=== PATIENT | female | born 1950 | race Caucasian/White ===

== ENCOUNTER 2017-12-23 16:59 | Emergency (ER) | payer SELFPAY ==
[2017-12-23 16:59] VITALS: BP 188/96; PULSE 100; RESP 16; TEMP 37.8; O2SAT 94; BMI 32.5
--- NOTE | 2017-12-23 17:32 | EKG12_ITS ---
Test Reason : SOB,COUGH Blood Pressure : / mmHG Vent. Rate : 086 BPM Atrial Rate : 086 BPM P-R Int : 128 ms QRS Dur : 072 ms QT Int : 340 ms P-R-T Axes : 037 022 053 degrees QTc Int : 406 ms Normal sinus rhythm Nonspecific ST abnormality Abnormal ECG Confirmed by GUSTABO DEVI, BROCK ([id number]), photography editor MATY MEDELLIN ([id number]) on 12/26/2017 8:43:33 AM Referred By: DRAKE Confirmed By:BROCK MONTEJO MD
--- NOTE | 2017-12-23 17:32 | RAD_ITS ---
STUDY: X-RAY CHEST REASON FOR EXAM: Female, 66 years old. COUGH TECHNIQUE: Frontal and lateral views of the chest. COMPARISON: None. FINDINGS: Chronic appearing increased interstitial lung markings. There is no demonstrated pleural abnormality. Normal heart size. Normal mediastinum and jovita. Normal visualized pulmonary arteries. There is atherosclerotic calcification of the aortic arch with tortuosity. There are diffuse degenerative changes of the visualized thoracic spine. There is degenerative osteoarthritis of the bilateral shoulders. There is no demonstrated abnormality of the visualized soft tissue structures of the upper abdomen. RAD/Chest PA and Lateral IMPRESSION: There are no acute findings. Electronically Signed: Darrian Bolden MD at 19:19 EST , Service support ,
--- NOTE | 2017-12-23 17:35 | ED.DCSUM_ITS ---
- ER Visit Summary Date of Service: 12/23/17 Chief Complaint: [] Cough, shortness of breath History of Present Illness: The patient is a 66 F [] complaining of persistent cough, diffuse myalgias, shortness of breath during the peak of flu season. Patient reports she was seen at the urgent care and provided with medication that did not help her symptoms. She is returning with conversational dyspnea and new productive cough. Denies chest pain. No other complaints at this time. Physical Examination: [] Temperature 100.0. Heart rate 100. Remainder of vitals are unremarkable. 66-year-old female in no acute distress. She is coughing intermittently. Cardiovascular exam is regular rate and rhythm. Lungs are clear to auscultation. Abdomen is soft and nontender. There is no lower extremity edema. Test Results: [] White blood cell count elevated 16.6. BMP is normal. EKG shows normal sinus rhythm rate of 86 without ectopy or ischemic changes. Chest x-ray 2 views shows no acute process. Emergency Department Course and Treatment: [] Patient given intravenous fluids, Phenergan. Patient given oral Tylenol and oral Decadron. On serial exam after the essentially negative workup patient was provided azithromycin 500 mg for clinical bronchitis. She was provided a prescription of azithromycin 250 mg #4 to start taking tomorrow. Patient was counseled regarding her diagnostic and laboratory findings and is amenable to discharge and close follow-up with the PCP. Treatment Plan: [] Treated for bronchitis as an outpatient with outpatient antibiotics. Disposition: [] Discharge, stable. Impression: [] Bronchitis This note was generated with [employer] dictation software. It may contain incorrect words, spelling, and punctuation that were not noted in review of the chart prior to signing ED Disposition - Plan for ED Patient: Chief Complaint: Fever Referrals: Rowdy Heredia III, MD [Primary Care Provider] -
[2017-12-23] MEDS: Acetaminophen 500 MG Tablet 1000 MG PO (17:46)
[2017-12-23] MEDS: 0.9% Normal Saline 1,000 ML 1000 ML IV (18:04)
[2017-12-23 18:10] LABS: Absolute Lymphocyte Count 1.56 X10^3/ul (0.83-4.51); Absolute Neutrophil Count 13.4 X10^3/uL (2.0-7.7); Basophil# 0.03 X10^3/uL; Basophil% 0.2 % (0-1); Hemoglobin 11.7 g/dl (12.0-15.0); Lymphocyte # 1.56 X10^3/ul (4.0); Lymphocyte % 9.4 % (19-41); Mean Corp Hgb Conc 33.4 g/gl (32-36); Mean Corpuscular Hgb 28.7 pg (27.0-32.0); Mean Platelet Vol. 9.4 fl (6.2-12.0); Monocyte# 1.37 X10^3/uL; Monocyte% 8.3 % (0-10); Neutrophil # 13.44 X10^3/uL (2.7-7.7); Neutrophil % 81.1 % (47-70); Platelet Count 479 K/mm3 (150-450); RBC Distribution Width CV 12.4 % (11.6-14.6); RBC Distribution Width SD 39.4 fl (35.1-43.9); Red Blood Count 4.07 M/mm3 (4.2-5.4); White Blood Count 16.6 K/mm3 (4.4-11.0)
[2017-12-23 18:15] LABS: POSITIVE COUNT NO; POSITIVE DIFFERENTIAL NO; POSITIVE MORPHOLOGY NO
[2017-12-23 18:31] LABS: Anion Gap 9 (5-15); BUN 13 mg/dL (7-18); BUN/Creat Ratio 18.9 RATIO (10-20); Calcium,Total 8.9 mg/dL (8.5-10.1); Chloride 104 mmol/L (98-107); Creatinine, Serum 0.69 mg/dL (0.55-1.02); EST Glomerular Filtration Rate 91 mL/min (>60); Est Glom Filt Rate - Afr Amer 110 mL/min (>60); Estimated Creatinine Clearance 59.16 ml/min; Glucose 106 mg/dL (74-106); Potassium 3.9 mmol/L (3.5-5.1); Sodium Level 138 mmol/L (136-145)
[2017-12-23 19:00] VITALS: BP 204/89; PULSE 79; RESP 20; TEMP 36.6; O2SAT 97
--- NOTE | 2017-12-23 20:49 | ED.DEP ---
ED Disposition - Plan for ED Patient: Disposition: Home or Assisted Living Chief Complaint: Fever Instructions: Acute Bronchitis Prescriptions: Azithromycin 250 mg PO DAILY #4 tab Referrals: Rowdy Heredia III, MD [Primary Care Provider] -
[2017-12-23 20:58] VITALS: BP 158/90; PULSE 75; RESP 18; O2SAT 96
[2017-12-23] MEDS: Azithromycin 250 MG Tablet 500 MG PO (20:58)
== END 2017-12-23 21:04 | disposition home or self-care (01) ==
PROVIDERS: Emergency Provider Emergency Medicine; Family Provider Family Medicine; PCP Family Medicine
DX: J40 Bronchitis, not specified as acute or chronic (principal); R50.9 Fever, unspecified; Z90.89 Acquired absence of other organs
CPT/HCPCS: 71046; 80048; 85025; 87804; 93005; 96361; 96374; 99284

== ENCOUNTER 2023-02-21 08:47 | Inpatient (IN) | payer MEDICARE, SELFPAY ==
[2023-02-21] VITALS (16 sets, daily range): BP systolic 180–230; BP diastolic 84–149; PULSE 71–99; RESP 12–20; TEMP 36.6–36.8; O2SAT 94–100; BMI 34.0; BMI 39.5
--- NOTE | 2023-02-21 09:02 | CT_ITS ---
We are attempting to reach an attending provider to discuss findings. An addendum with communication details will be sent when the communication is complete. STUDY: CT HEAD STROKE PROTOCOL W/O CONTRAST INJECTION REASON FOR EXAM: Female, 72 years old. Neuro deficit, acute, stroke suspected RADIATION DOSAGE (If Supplied By Facility): CTDIvol = ( 44.99 ) mGy, DLP = ( 796.11 ) mGycm TECHNIQUE: Transaxial CT imaging of the brain was performed without administration of intravenous contrast material. Individualized dose optimization techniques were used for this CT. COMPARISON: No relevant priors. FINDINGS: Normal soft tissue structures. Normal calvarium. There is mild cerebral atrophy with widening of the extra-axial spaces and ventricular dilatation. There are areas of decreased attenuation within the white matter tracts of the supratentorial brain, consistent with microvascular disease changes. Normal basal ganglia and thalami. Normal brainstem. Normal cerebellum. There is no intracranial hemorrhage. There are no findings of an acute ischemic infarction. Mild degree of nodular mucosal thickening of the right maxillary sinus. ASPECT score: 10 CT/STROKE Brain/Head without Cont IMPRESSION: Chronic involutional changes of the brain. Electronically Signed: Alvin Llanos MD at 9:18 EDT ,
--- NOTE | 2023-02-21 09:02 | CT_ITS ---
STUDY: CTA HEAD AND NECK WITH CONTRAST REASON FOR EXAM: Female, 72 years old. Neuro deficit, acute, stroke suspected RADIATION DOSAGE (If Supplied By Facility): CTDIvol = ( 23.60 ) mGy, DLP = ( 661.19 ) mGycm TECHNIQUE: CT angiography was performed with a multi-detector CT scanner. Data acquisition was obtained from the skull base through the vertex following intravenous administration of IV 100mL [id number]-370. MIP images were reconstructed from the axial data set. Post-processing of the angiographic images was performed, with multiplanar reformation and 3D reconstruction. Individualized dose optimization techniques were used for this CT. COMPARISON: No relevant priors. FINDINGS: Normal bilateral petrous carotid arteries. There is calcified plaque formation of the right cavernous carotid artery, without a cross-sectional luminal stenosis. There is calcified plaque formation of the left cavernous carotid artery, without a cross-sectional luminal stenosis. Normal right A1 segments of the anterior cerebral artery. Normal left A1 segments of the anterior cerebral artery. Normal intact anterior communicating artery (ACOM). Normal bilateral A2 segments of the anterior cerebral arteries. Normal right M1 and M2 segments of the middle cerebral arteries, with a normal M1 bifurcation. Normal left M1 and M2 segments of the middle cerebral arteries, with a normal M1 bifurcation. There is a persistent origin of the right posterior cerebral artery with absence of the posterior communicating artery (PCOM). There is a persistent origin of the left posterior cerebral artery with absence of the posterior communicating artery (PCOM). Normal bilateral vertebral arteries. Normal basilar artery with a normal basilar bifurcation. The visualized bilateral superior cerebellar (SCA) arteries are normal. Normal bilateral P1, P2 and visualized P3 segments of the posterior cerebral arteries. There is no demonstrated aneurysm of the lummi of He. There is no demonstrated abnormality of the visualized brain. AORTIC ARCH: There is atherosclerotic calcific plaque formation of the aortic arch and great vessels arising from the aortic arch, without a hemodynamically significant stenosis. There is a normal origin of the brachiocephalic, left common carotid, and left subclavian arteries. RIGHT CAROTID ARTERIES: Normal right common carotid artery (CCA). Normal right common carotid bulb. There is mild atherosclerotic plaque formation of the origin of the right internal carotid artery with less than 50% cross sectional diameter stenosis. Normal visualized cervical portion of the right internal carotid artery. Normal origin of the right external carotid artery (ECA). LEFT CAROTID ARTERIES: Normal left common carotid artery (CCA). Normal left common carotid bulb. There is mild atherosclerotic plaque formation of the origin of the left internal carotid artery with less than 50% cross sectional diameter stenosis. Normal visualized cervical portion of the left internal carotid artery. Normal origin of the left external carotid artery (ECA). VERTEBRAL ARTERIES: There is enhancement within the bilateral vertebral arteries with a small right vertebral artery, and a dominant left vertebral artery. CT/STROKE CTA Head AND Neck W/Con IMPRESSION: Mild calcific plaque formation at the origins of both the right and left internal carotid artery causing less than 50% narrowing. N.B. : The above Results were Read Back by Alvin Llanos MD to Dr Jaqueline MD, and understanding confirmed on 02/21/2023 09:45:54 (ET). Electronically Signed: Alvin Llanos MD at 9:47 EDT ,
--- NOTE | 2023-02-21 09:02 | NURSING ---
STROKE ALERT CALLED
--- NOTE | 2023-02-21 09:03 | EDS_ITS ---
HPI History of Present Illness Chief Complaint: Neuro S/Sx Detail of Chief Complaint: Right-sided weakness and feeling off balance Informant: patient Narrative Narrative: Patient presents via EMS from home with concern for right-sided weakness and feeling off balance. Patient states that she woke up around 730 via an alarm and noted that she felt very off balance. Patient felt like her right hand and her right foot were not working right. She attempted multiple times to call her daughter but could not get her right hand to work properly. Daughter came over and then called EMS. Patient apparently had negative stroke exam per EMS therefore stroke team was not called prior to arrival in the emergency department. Patient continues to feel like her right hand and right foot are weak. She denies headache. She denies falls or head injuries. She tells me she has no medical history. Patient denies visual changes. Patient denies difficulty with speech. Prior similar symptoms: No PFSH PFSH Allergy/AdvReac Type Severity Reaction Status Date / Time wheat Allergy Hives Verified 02/21/23 08:55 Surgical History (Updated 02/21/23 @ 08:55 by Lexie Landry) Hx of cardiac cath Social History Smoking Status: Former smoker ROS ROS ED Review of Systems ROS Unobtainable: other Constitutional Constitutional ED: Reports lethargy; Denies chills, fever(s), sweats or weight loss Eyes Eyes: Denies blurry vision, change in vision or diplopia ENT ENT ED: Denies rhinorrhea or sore throat Cardiovascular Cardiovascular: Denies chest pain, orthopnea or racing heartbeat Respiratory/Chest Respiratory/Chest: Denies cough, dyspnea, dyspnea on exertion, orthopnea or sput um Gastrointestinal Gastrointestinal: Denies abdominal pain, diarrhea, nausea or vomiting Genitourinary Genitourinary ED: Denies dysuria, hematuria or urinary frequency Musculoskeletal Musculoskeletal: Denies arthralgias, back pain, myalgias or neck pain Integumentary Denies abscess, Abrasions or rash Neurologic Neurologic: Reports other Details: Right hand and right leg weakness, feeling off balance ; Denies headache(s) or weakness Psychiatric Psychiatric: Denies anxiety, depression or suicidal thoughts Endocrine Endocrinology: Denies polydipsia, polyphagia or polyuria Hematologic/Lymphatic Hematologic/Lymphatic: Denies easy bleeding, easy bruising or lymphadenopathy Allergic/Immunologic Allergic/Immunologic ED: Denies mouth swelling, tongue swelling or urticaria EXAM Physical Exam Const Vital Signs: 02/21/23 08:49 02/21/23 08:49 02/21/23 09:04 Temperature 97.9 F Temperature Source Temporal Pulse Rate 96 99 96 Respiratory Rate 20 H 16 18 Blood Pressure 220/107 H 220/107 H 230/116 H Blood Pressure Mean 144 144 154 Pulse Ox 97 99 97 Oxygen Delivery Method Room Air Room Air Room Air 02/21/23 09:02 02/21/23 09:02 02/21/23 09:32 Temperature Temperature Source Pulse Rate 76 71 Respiratory Rate 18 12 Blood Pressure 230/117 H 219/102 H Blood Pressure Mean 154 141 Pulse Ox 94 95 95 Oxygen Delivery Method Room Air Room Air Room Air Positive well nourished and well developed General Appearance ED: well developed and NAD HEENT Reports TM's clear and moist mucous membranes normocephalic and atraumatic; Negative for trauma or tenderness Tympanic Membrane ED: Yes TM's clear Eyes PERRL and EOMs intact bilaterally General Eye ED: Negative for pale conjunctiva or scleral icterus Neck no lymphadenopathy, supple and no JVD General: Negative for tenderness Chest Wall inspection of chest normal and palpation of chest normal Chest: Negative for tenderness Resp normal respiratory effort and clear to auscultation bilaterally Effort and Inspection: Negative for respiratory distress or pain with movement Auscultation: Negative for rhonchi, wheezes or diminished lung sounds Cardio regular rate, regular rhythm, S1 normal heart sound, S2 normal heart sound and no murmurs Peripheral Pulses: pulses 2+ throughout GI normal to inspection, nondistended, normoactive bowel sounds, soft to palpation, non-tender, non-distended and no masses Back/Spine no CVA tenderness and no thoracic nor lumbar tenderness Extremity normal to inspection General Extremety ED: Negative for edema General Extremity: Negative for edema Neuro oriented x3, CN's II-XII intact bilaterally, no sensory deficits noted and gait normal Neuro Narrative: No facial droop and no dysarthria. NIH stroke scale was a 3 given for some subtle drift with the right arm as well as some subtle drift with the right leg and mild ataxia with the right hand. Sensorium / Orientation: awake, alert, oriented to person, oriented to place and oriented to time Motor Exam: strength 5/5 throughout and strength abnormal Psych mental status grossly normal Skin no rashes or lesions noted and no wounds MDM MDM MDM Narrative Medical decision making narrative: Patient presents with concern for right-sided weakness and feeling off balance. She presented hypertensive. Subtle signs of right arm and right leg weakness and ataxia. Patient woke up with symptoms therefore onset of symptoms unclear. Stroke team was called after I examined the patient. Patient was evaluated by stroke neurologist and felt she was likely having a stroke. Patient was hypertensive therefore she was started on labetalol. CT scan of the brain without contrast was unremarkable. CTA of the head and neck showed mild stenosis of both carotid arteries of less than 50% otherwise no large vessel occlusions noted. CBC with differential was normal. Chemistries normal. EKG showed a sinus rhythm with a rate of 71 bpm with no acute ST segment changes. Troponin normal. Case will be discussed with hospitalist to evaluate patient for admission for diagnosis of CVA. Patient again not a thrombolytic candidate. Lab Data Attestation: I reviewed the patient's lab results. Labs: Laboratory Results - last 24 hr 02/21/23 02/21/23 02/21/23 09:10 09:10 09:10 WBC 7.7 RBC 5.05 Hgb 14.1 Hct 42.1 MCV 83.4 MCH 27.9 MCHC 33.5 RDW Std Deviation 38.7 RDW Coeff of Stacy 12.8 Plt Count 330 MPV 10.4 Immature Gran % (Auto) 0.400 Neut % (Auto) 66.4 Lymph % (Auto) 23.3 [place] % (Auto) 9.6 Eos % (Auto) 0.0 Baso % (Auto) 0.3 Absolute Neuts (auto) 5.1 Absolute Lymphs (auto) 1.79 Nucleated RBC % 0 PT 13.0 INR 1.0 APTT 34.9 Sodium 138 Potassium 3.8 Chloride 105 Carbon Dioxide 27.0 Anion Gap 6 BUN 15 Creatinine 0.87 Estim Creat Clear Calc 43.22 Est GFR (MDRD) Af Amer 83 Est GFR (MDRD) Non-Af 69 BUN/Creatinine Ratio 17.3 Glucose 123 H Calcium 9.6 Troponin I High Sens 7 POC Glucose 02/21/23 09:18 WBC RBC Hgb Hct MCV MCH MCHC RDW Std Deviation RDW Coeff of Stacy Plt Count MPV Immature Gran % (Auto) Neut % (Auto) Lymph % (Auto) [place] % (Auto) Eos % (Auto) Baso % (Auto) Absolute Neuts (auto) Absolute Lymphs (auto) Nucleated RBC % PT INR APTT Sodium Potassium Chloride Carbon Dioxide Anion Gap BUN Creatinine Estim Creat Clear Calc Est GFR (MDRD) Af Amer Est GFR (MDRD) Non-Af BUN/Creatinine Ratio Glucose Calcium Troponin I High Sens POC Glucose 109 H Radiography Diagnostic Testing: Clinical Impression(s) from Imaging Studies Brain CT 02/21/23 09:02 IMPRESSION: Chronic involutional changes of the brain. Electronically Signed: Alvin Llanos MD at 9:18 EDT , Head/Neck CTA 02/21/23 09:02 IMPRESSION: Mild calcific plaque formation at the origins of both the right and left internal carotid artery causing less than 50% narrowing. N.B. : The above Results were Read Back by Alvin Llanos MD to Dr Jaqueline MD, and understanding confirmed on 02/21/2023 09:45:54 (ET). Electronically Signed: Alvin Llanos MD at 9:47 EDT , ADDENDUM: 02/21/23 0954 IMPRESSION: Mild calcific plaque formation at the origins of both the right and left internal carotid artery causing less than 50% narrowing. N.B. : The above Results were Read Back by Alvin Llanos MD to Dr Jaqueline MD, and understanding confirmed on 02/21/2023 09:45:54 (ET). Electronically Signed: Alvin Llanos MD at 9:47 EDT , EKG Initial EKG: Attestation: I personally reviewed and interpreted this EKG as follows: Comments: Sinus rhythm with a rate of 71 bpm with no acute ST segment changes Discharge Plan Triage Chief Complaint: Neuro S/Sx ED Provider: Yue Mendoza Dx/Rx/DC Orders Clinical Impression: Acute CVA (cerebrovascular accident), Hypertension, Acute right-sided weakness Primary Care Provider: Care Physician,No Primary Referrals: Care Physician,No Primary [Primary Care Provider] - Disposition Disposition: Acute Care Hospital [facility]
[2023-02-21 09:20] LABS: Absolute Lymphocyte Count 1.79 X10^3/uL (0.83-4.51); Absolute Neutrophil Count 5.1 X10^3/uL (2.0-7.7); Basophil# 0.02 X10^3/uL; Basophil% 0.3 % (0-1); Hematocrit 42.1 % (37-47); Hemoglobin 14.1 g/dL (12.0-15.0); Lymphocyte # 1.79 X10^3/ul (0.83-4.51); Lymphocyte % 23.3 % (19-41); Mean Corp Hgb Conc 33.5 g/dL (32-36); Mean Corpuscular Hgb 27.9 pg (27.0-32.0); Mean Corpuscular Volume 83.4 fL (81-99); Mean Platelet Vol. 10.4 fl (6.2-12.0); Monocyte# 0.74 X10^3/uL; Monocyte% 9.6 % (0-10); NRBC Flagged by Analyzer 0 % (0-5); Neutrophil # 5.11 X10^3/uL (2.7-7.7); Neutrophil % 66.4 % (47-70); Platelet Count 330 K/mm3 (150-450); RBC Distribution Width CV 12.8 % (11.6-14.6); RBC Distribution Width SD 38.7 fl (35.1-43.9); Red Blood Count 5.05 M/mm3 (4.2-5.4); White Blood Count 7.7 K/mm3 (4.4-11.0)
[2023-02-21] MEDS: Labetalol (Prefilled) 20 MG/4 ML IV (09:22)
[2023-02-21 09:31] LABS: Partial Thromboplast Time 34.9 Seconds (24.1-36.2)
[2023-02-21 09:38] LABS: Anion Gap 6 (5-15); BUN 15 mg/dL (7-18); BUN/Creat Ratio 17.3 RATIO (10-20); Calcium,Total 9.6 mg/dL (8.5-10.1); Chloride 105 mmol/L (98-107); Creatinine, Serum 0.87 mg/dL (0.55-1.02); EST Glomerular Filtration Rate 69 mL/min (>60); Est Glom Filt Rate - Afr Amer 83 mL/min (>60); Estimated Creatinine Clearance 43.22 ml/min; Glucose 123 mg/dL (74-106); Potassium 3.8 mmol/L (3.5-5.1); Sodium Level 138 mmol/L (136-145); Troponin-I HS 7 pg/mL (3.0-54.0)
[2023-02-21 09:41] LABS: Bedside Glucose 109 mg/dL (74-106)
--- NOTE | 2023-02-21 10:30 | MRI_ITS ---
STUDY: MRI BRAIN WITHOUT CONTRAST REASON FOR EXAM: Female, 72 years old. cva, and bowel loops, right weakness, unable to walk. TECHNIQUE: Standardized multiplanar fat and water weighted pulse sequences were obtained. COMPARISON: 02/21/2023 CT brain FINDINGS: There is mild cerebral atrophy with widening of the extra-axial spaces and ventricular dilatation. There are multiple white matter hyperintensities, distributed throughout the deep white matter tracts of the cerebral hemispheres, consistent with moderate chronic white matter ischemic changes. There is a punctate DWI high signal within the left lateral thalamus with low corresponding signal on ADC measuring 5 mm. Normal T2* images of the brain without demonstrated susceptibility artifact. There is no demonstrated hemosiderin stain. Normal bilateral basal ganglia. Normal thalami. There is no extra-axial fluid accumulation. Normal flow voids within the major intracranial circulation suggesting patency by spin echo criteria. Normal sella turcica, pituitary gland, infundibular stalk, optic chiasm and hypothalamus. Normal tectal plate and pineal gland. Normal midbrain, yaima and medulla. Normal cerebellum. Normal basal cisterns. Normal bilateral temporal bones. Normal bilateral internal auditory canals. No demonstrated orbital abnormality, within the constraints of a routine brain study. Normal visualized paranasal sinuses. Normal calvarium and skull base. Normal visualized soft tissue structures. Normal visualized upper cervical spine. MRI/Brain without Contrast IMPRESSION: Left lateral thalamic acute to subacute 5 mm likely lacunar infarct with no evidence of large territorial ischemia. No evidence of acute intracranial bleed or mass. Electronically Signed: Cal Solo DO at 16:47 EDT ,
--- NOTE | 2023-02-21 10:38 | HP.PCM.HOS_ITS ---
HPI - General General Date of Admission: 02/21/23 Date of Service: 02/21/23 Chief Complaint: Disequilibrium HPI Narrative CRISTI LAZCANO, is a 72 F in relatively good health with no chronic medical comorbidities who presented to the emergency department with disequilibrium. The patient she was in her usual state of health prior to going to bed. She however woke up on the morning of her presentation with a sense of loss of balance. She also did notice significant weakness in the right upper extremities as well as right lower extremities. He had problems trying to text on her phone. Daughter did call the squad and patient was brought to the emergency department. Initial evaluation including stat head CT was negative for acute bleed. Patient was however found to have markedly elevated blood pressure with systolic greater than 200 (has no history of hypertension). She was subsequently admitted to a monitored bed for further management [facility] Allergy/AdvReac Type Severity Reaction Status Date / Time wheat Allergy Hives Verified 02/21/23 08:55 Family History (Updated 02/21/23 @ 12:[address] Pantera Almodovar MD) Brother Heart disease Surgical History (Updated 02/21/23 @ 08:55 by Lexie Landry) Hx of cardiac cath Social History Smoking Status: Former smoker ROS ROS Narrative GENERAL: denies fever, chills, night sweats, weight loss, anorexia HEENT: denies headache, sinus congestion, or drainage, dysphagia RESPIRATORY: denies cough, sputum production, shortness of breath, dyspnea on exertion CARDIAC: denies chest pain, palpitations, orthopnea, PND GASTROINTESTINAL: denies abdominal pain, nausea, vomiting, melena, GENITOURINARY: denies dysuria, urgency, frequency, heamaturia EXTREMITY: denies swelling MUSCULOSKELETAL: denies current joint pain or tenderness NEUROLOGIC: Disequilibrium and focal right-sided weakness HEMATOLOGIC: denies easy bruising and/or hemorrhage INTEGUMENT: denies rashes PSYCHIATRIC: denies suicidal or homicidal ideation Vital Signs Vital Signs Vital Signs: 02/21/23 08:49 02/21/23 08:49 02/21/23 09:04 Temperature 97.9 F Temperature Source Temporal Pulse Rate 96 99 96 Respiratory Rate 20 H 16 18 Blood Pressure 220/107 H 220/107 H 230/116 H Blood Pressure Mean 144 144 154 Pulse Ox 97 99 97 Oxygen Delivery Method Room Air Room Air Room Air 02/21/23 09:02 02/21/23 09:02 02/21/23 09:32 Temperature Temperature Source Pulse Rate 76 71 Respiratory Rate 18 12 Blood Pressure 230/117 H 219/102 H Blood Pressure Mean 154 141 Pulse Ox 94 95 95 Oxygen Delivery Method Room Air Room Air Room Air 02/21/23 10:25 Temperature 97.9 F Temperature Source Temporal Pulse Rate 74 Respiratory Rate 16 Blood Pressure 215/86 H Blood Pressure Mean 129 Pulse Ox 95 Oxygen Delivery Method Room Air Weight Weight: 78.9 kg Body Mass Index (BMI) 34.0 Physical Exam Narrative GENERAL: cooperative HEENT: Atraumatic; normocephalic EYES; Anicteric, Normal Conjunctiva NECK; supple, normal thyroid, RESPIRATORY: Diminished to auscultation CARDIOVASCULAR: Regular S1 S2, GI: soft, normoactive bowel sounds, : No Renal angle tenderness; EXTREMITIES: No edema, no clubbing, MUSCULOSKELETAL: no muscle wasting NEURO: Awake; no lateralizing signs. SKIN: No Rash PSYCH; Flat affect Results Lab / Micro Data Result Diagrams: 02/21/23 09:10 02/21/23 09:10 Labs: Laboratory Results - last 24 hr 02/21/23 09:10: WBC 7.7, RBC 5.05, Hgb 14.1, Hct 42.1, MCV 83.4, MCH 27.9, MCHC 33.5, RDW Std Deviation 38.7, RDW Coeff of Stacy 12.8, Plt Count 330, MPV 10.4, Immature Gran % (Auto) 0.400, Neut % (Auto) 66.4, Lymph % (Auto) 23.3, [place] % (Auto) 9.6, Eos % (Auto) 0.0, Baso % (Auto) 0.3, Absolute Neuts (auto) 5.1, Absolute Lymphs (auto) 1.79, Nucleated RBC % 0 02/21/23 09:10: PT 13.0, INR 1.0, APTT 34.9 02/21/23 09:10: Sodium 138, Potassium 3.8, Chloride 105, Carbon Dioxide 27.0, Anion Gap 6, BUN 15, Creatinine 0.87, Estim Creat Clear Calc 43.22, Est GFR (MDRD) Af Amer 83, Est GFR (MDRD) Non-Af 69, BUN/Creatinine Ratio 17.3, Glucose 123 H, Calcium 9.6, Troponin I High Sens 7 02/21/23 09:18: POC Glucose 109 H Radiology Impression Brain CT 02/21/23 09:02 IMPRESSION: Chronic involutional changes of the brain. Electronically Signed: Alvin Llanos MD at 9:18 EDT , ADDENDUM: 02/21/23 1000 IMPRESSION: Chronic involutional changes of the brain. N.B. : The above Results were Read Back by Alvin Llanos MD to Yue Mendoza MD, and understanding confirmed on 02/21/2023 09:53:39 (ET). Electronically Signed: Alvin Llanos MD at 9:18 EDT , Head/Neck CTA 02/21/23 09:02 IMPRESSION: Mild calcific plaque formation at the origins of both the right and left internal carotid artery causing less than 50% narrowing. N.B. : The above Results were Read Back by Alvin Llanos MD to Dr Jaqueline MD, and understanding confirmed on 02/21/2023 09:45:54 (ET). Electronically Signed: Alvin Llanos MD at 9:47 EDT , ADDENDUM: 02/21/23 0954 IMPRESSION: Mild calcific plaque formation at the origins of both the right and left internal carotid artery causing less than 50% narrowing. N.B. : The above Results were Read Back by Alvin Llanos MD to Dr Jaqueline MD, and understanding confirmed on 02/21/2023 09:45:54 (ET). Electronically Signed: Alvin Llanos MD at 9:47 EDT , Assessment & Plan Assessment/Plan (1) Hypertension: (2) Disequilibrium: PLAN: Plan Patient is a 72-year-old lady presenting with disequilibrium, subjective right- sided weakness and markedly elevated blood pressure 1. Suspected CVA ? Patient presented with disequilibrium as well as right-sided weakness. Ini tial head CT obtained was negative for acute bleed. CTA did the most Mild calcific plaque formation at the origins of both the right and left internal carotid artery causing less than 50% narrowing. Patient has been admitted to monitored bed subsequently. Placed on every 4 neurochecks as part of her management ordered a 2D echo and MRI to rule out acute CVA. Patient was started on antiplatelet therapy as well as statin therapy pending results of her MRI 2. Hypertension ? Patient does not have any history of hypertension her systolic blood pressure was markedly elevated greater than 200. Given the suspicion for possible CVA aggressive treatment was not initiated MRI results. If acute CVA is ruled out treatment of her blood pressure will be pursued aggressively 3. Class I obesity with BMI of 34.0 ? Weight loss advised 4.DVT prophylaxis - On enoxaparin Time spent in the patient's overall evaluation,decision-making process, review of diagnostic data, adjustment of management, discussion with other providers, nursing nursing and ancillary staff involved in patient's care documentation, 77 Minutes Advance planning; did discuss with the patient and family regarding advanced directives as well as CODE STATUS. Did explain the various scenarios involved ( FULL CODE, DNR CCA, DNR CCA with no intubation, and DNR CC and what each meant) patient elected to be DNR CCA no intubation. Order was placed. Time spent on discussion 16 minutes. Charges/Coding Visit Charges Inpatient E&M: 17441 Init Hosp L3 Procedures Hospitalists Procedures: 41514 Advncd Care Plan 30 Min
--- NOTE | 2023-02-21 10:41 | NURSING ---
DR JUÁREZ AT BEDSIDE
--- NOTE | 2023-02-21 11:35 | RAD_ITS ---
STUDY: X-RAY CHEST REASON FOR EXAM: Female, 72 years old. Neuro deficit, acute, stroke suspected TECHNIQUE: Single AP portable view of the chest. COMPARISON: Comparison is made with prior study dated December 23, 2017. FINDINGS: EKG electrodes are seen. The lungs are clear and expanded. There is no demonstrated pleural abnormality. Normal size heart. Normal mediastinum and jovita. Normal visualized pulmonary arteries. There is atherosclerotic calcification of the aortic arch with tortuosity. There are diffuse degenerative changes of the visualized thoracic spine. Minimal dextroscoliosis. Normal visualized ribs, clavicles, and shoulders. There is no demonstrated abnormality of the visualized soft tissue structures of the upper abdomen. RAD/Chest 1 View IMPRESSION: No acute abnormality is seen. Electronically Signed: Alvin Llanos MD at 12:00 EDT ,
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
[2023-02-21] MEDS: 0.9% Normal Saline 1,000 ML 75 ML IV (13:13)
[2023-02-21] MEDS: Enoxaparin 40 MG/0.4 ML Syringe SC (13:14)
[2023-02-21] MEDS: Aspirin 81 MG TAB.CHEW PO (13:17)
[2023-02-21] MEDS: Atorvastatin Calcium 80 MG Tablet PO (20:46)
[2023-02-21] MEDS: Ondansetron 4 MG/2 ML Vial IV (23:19)
[2023-02-22 00:30] VITALS: BP 183/69; PULSE 78; RESP 16; TEMP 36.9; O2SAT 96
[2023-02-22] MEDS: 0.9% Normal Saline 1,000 ML 75 ML IV (03:39)
[2023-02-22 04:30] VITALS: BP 140/103; PULSE 75; RESP 16; TEMP 36.9; O2SAT 96
[2023-02-22 04:36] VITALS: BMI 40.1
[2023-02-22 05:15] LABS: Absolute Lymphocyte Count 1.74 X10^3/uL (0.83-4.51); Absolute Neutrophil Count 7.8 X10^3/uL (2.0-7.7); Basophil# 0.01 X10^3/uL; Basophil% 0.1 % (0-1); Eosinophil# 0.02 X10^3/uL; Eosinophils% 0.2 % (0-5); Hematocrit 39.4 % (37-47); Lymphocyte # 1.74 X10^3/ul (0.83-4.51); Lymphocyte % 16.9 % (19-41); Mean Corpuscular Hgb 28.6 pg (27.0-32.0); Mean Corpuscular Volume 86.8 fL (81-99); Mean Platelet Vol. 11.2 fl (6.2-12.0); Monocyte# 0.71 X10^3/uL; Monocyte% 6.9 % (0-10); NRBC Flagged by Analyzer 0 % (0-5); Neutrophil % 75.5 % (47-70); Platelet Count 314 K/mm3 (150-450); RBC Distribution Width SD 40.8 fl (35.1-43.9); Red Blood Count 4.54 M/mm3 (4.2-5.4); White Blood Count 10.3 K/mm3 (4.4-11.0)
[2023-02-22 05:47] LABS: Anion Gap 7 (5-15); BUN 17 mg/dL (7-18); BUN/Creat Ratio 19.8 RATIO (10-20); Calcium,Total 8.9 mg/dL (8.5-10.1); Chloride 108 mmol/L (98-107); Cholesterol 216 mg/dL (200); Creatinine, Serum 0.86 mg/dL (0.55-1.02); EST Glomerular Filtration Rate 69 mL/min (>60); Est Glom Filt Rate - Afr Amer 84 mL/min (>60); Estimated Creatinine Clearance 43.72 ml/min; Glucose 118 mg/dL (74-106); High Density Lipoprotein 44 mg/dL; Magnesium 2.3 mg/dL (1.6-2.6); Phosphorus 3.5 mg/dL (2.5-4.9); Sodium Level 138 mmol/L (136-145); Triglycerides 109 mg/dL; Very Low Density Lipoprotein 22 mg/dL (5-40)
[2023-02-22 07:05] VITALS: O2SAT 96
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
[2023-02-22 08:13] VITALS: BP 161/66; PULSE 71; RESP 16; TEMP 36.7; O2SAT 98
[2023-02-22] MEDS: Aspirin E.C. 81 MG Tablet PO (08:21)
--- NOTE | 2023-02-22 09:31 | TELEMED_ITS ---
[facility] Tele[facility] has confirmed receipt of a request for visit. This document confirms receipt of the order initiating the consult. To find the results of the consultation, please view the patient's reports for the scanned Telemed Consult.
[2023-02-22] MEDS: Enoxaparin 40 MG/0.4 ML Syringe SC (10:36)
--- NOTE | 2023-02-22 10:45 | CASEMGMT ---
Pt completed PHQ9 with SW and scored a 0 which indicates no depression concerns at this time. Pt declined the need for mental health referrals. Sophie Maria BINDERY MACHINE OPERATOR, RESEARCH WORKER [employer]
--- NOTE | 2023-02-22 10:47 | CASEMGMT ---
Physical Therapist told SW she is recommending Inpatient Rehab for patient and patient would like [facility] Inpatient Rehab. SW made initial referral to Rehab. RN KENDALL is also verifying with patient that this is her plan. Madai NEVAREZ
--- NOTE | 2023-02-22 12:00 | CASEMGMT ---
NANCI ARGUETA Face to Face with patient for initial transition planning/care coordination assessment. NANCI ARGUETA introduced self and role at [facility]. Patient sitting in chair, alert and oriented, daughter at bedside. Patient willing to participate in assessment and is able to answer all questions appropriately. Care providers, pharmacy, and demographics verified. Patient wishes to discharge to [facility] Rehab Unit for additional therapy. Patient states she has no further needs or concerns at this time. CM to follow for discharge planning needs that may arise. PCP: None, PCP list provided. Specialists: none Preferred [facility]acy[facility] Insurance: [employer] Prescription Benefit: none Living Will/HPOA: none LNOK: daughter Living Arrangements: Patient lives alone in a single story home with 3 steps to enter. Patient was independent at home. Transportation: self/daughter DME/HHC: Patient has waker and shower chair at home. No previous HHC or SNF. Therapy recommending Rehab Unit. NANCI ARGUETA discussed with patient, patient agreeable and would like [facility],declined list of [place]. Disposition Plan: Patient to discharge to Rehab Unit when medically ready. Effie COSTA, RN, CM
[2023-02-22 12:10] VITALS: BP 162/87; PULSE 74; RESP 16; TEMP 36.6; O2SAT 95
--- NOTE | 2023-02-22 12:14 | PCM.DC.SUM ---
Providers Date of Admission: 02/22/23 Date of Discharge: 02/22/23 Primary Care Physician: No Primary Care Phys Reason For Visit: SUSPECTED CVA Diagnosis Discharge Diagnosis (1) Hypertension: Status: Chronic Code(s): I10 - Essential (primary) hypertension (2) Disequilibrium: Status: Acute Code(s): R42 - Dizziness and giddiness Plan Patient is a 72-year-old lady presenting with disequilibrium, subjective right-sided weakness and markedly elevated blood pressure 1. 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 Patient presented with disequilibrium as well as right-sided weakness. Initial head CT obtained was negative for acute bleed. CTA did the most Mild calcific plaque formation at the origins of both the right and left internal carotid artery causing less than 50% narrowing. Patient has been admitted to monitored bed subsequently. Placed on every 4 neurochecks as part of her management ordered a 2D echo and MRI to rule out acute CVA. Patient was started on antiplatelet therapy as well as statin therapy pending results of her MRI -02/22/2023; Patient's MRI demonstrated left lateral thalamic acute to subacute 5 mm likely lacunar infarct with no evidence of large territorial ischemia.. Consult subsequently placed to [facility] teleneurology. ?Patient was transferred to the inpatient rehab unit to continue with her therapy 2. Hypertension ? Patient does not have any history of hypertension her systolic blood pressure was markedly elevated greater than 200. Given the suspicion for possible CVA aggressive treatment was not initiated MRI results. If acute CVA is ruled out treatment of her blood pressure will be pursued aggressively ? 02/22/2023 some improvement in patient blood pressure levels 3. Class I obesity with BMI of 34.0 ? Weight loss advised 4.dyslipidemia ? Patient total cholesterol was 216 LDL 150. Patient has been started on high-dose statin therapy 5. Hyperglycemia ? Ordered hemoglobin A1c to rule out diabetes 6. DVT prophylaxis - On enoxaparin Time spent in the patient's overall evaluation,decision-making process, review of diagnostic data, adjustment of management, discussion with other providers, nursing nursing and ancillary staff involved in patient's care documentation, 57 Minutes Medications at Discharge Home Medications acetaminophen 325 mg tablet 650 mg PO Q6H PRN PRN Pain 1-10 Or Fever>100.7 #0 tabs 02/22/23 aluminum-mag hydroxide-simethicone 400 mg-400 mg-40 mg/5 mL oral susp (Mag-Al Plus Extra Strength) 30 ml PO Q6H PRN PRN Gastric Burning #0 mL 02/22/23 amlodipine 10 mg tablet 10 mg PO DAILY #1 TAB 02/22/23 aspirin 81 mg tablet,delayed release 81 mg PO BREAKFAST #0 tabs 02/22/23 atorvastatin 80 mg tablet 80 mg PO QHS #0 tabs 02/22/23 clopidogrel 75 mg tablet (Plavix) 75 mg PO DAILY #20 tabs 02/22/23 melatonin 3 mg tablet 3 mg PO QHS PRN PRN Insomnia #0 tabs 02/22/23 sennosides 8.6 mg-docusate sodium 50 mg tablet (Stool Softener-Stimulant Laxative) 2 tab PO BID PRN PRN Constipation #0 tabs 02/22/23 Hospital Course Summary of Care Provided Minutes Spent on Discharge: 57 Physical Exam Narrative GENERAL: cooperative HEENT: Atraumatic; normocephalic EYES; Anicteric, Normal Conjunctiva NECK; supple, normal thyroid, RESPIRATORY: Diminished to auscultation CARDIOVASCULAR: Regular S1 S2, GI: soft, normoactive bowel sounds, : No Renal angle tenderness; EXTREMITIES: No edema, no clubbing, MUSCULOSKELETAL: no muscle wasting NEURO: Awake; strength 4/5 in the right upper extremity SKIN: No Rash PSYCH; Flat affect Weight / BMI Weight Weight: 93.3 kg Body Mass Index (BMI) 40.1 ABG / Lab / Microbiology Data Result Diagrams: 02/22/23 03:56 02/22/23 03:56 Laboratory: Laboratory Results - last 24 hr 02/22/23 03:56: WBC 10.3, RBC 4.54, Hgb 13.0, Hct 39.4, MCV 86.8, MCH 28.6, MCHC 33.0, RDW Std Deviation 40.8, RDW Coeff of Stacy 13.0, Plt Count 314, MPV 11.2, Immature Gran % (Auto) 0.400, Neut % (Auto) 75.5 H, Lymph % (Auto) 16.9 L, [place] % (Auto) 6.9, Eos % (Auto) 0.2, Baso % (Auto) 0.1, Absolute Neuts (auto) 7.8 H, Absolute Lymphs (auto) 1.74, Nucleated RBC % 0 02/22/23 03:56: Sodium 138, Potassium 4.0, Chloride 108 H, Carbon Dioxide 23.0, Anion Gap 7, BUN 17, Creatinine 0.86, Estim Creat Clear Calc 43.72, Est GFR (MDRD) Af Amer 84, Est GFR (MDRD) Non-Af 69, BUN/Creatinine Ratio 19.8, Glucose 118 H, Calcium 8.9, Phosphorus 3.5, Magnesium 2.3, Triglycerides 109, Cholesterol 216 H, LDL Cholesterol 150 H, VLDL Cholesterol 22, HDL Cholesterol 44 Radiography Diagnostic Testing: Radiology Impression Brain MRI 02/21/23 10:30 IMPRESSION: Left lateral thalamic acute to subacute 5 mm likely lacunar infarct with no evidence of large territorial ischemia. No evidence of acute intracranial bleed or mass. Electronically Signed: Cal Solo DO at 16:47 EDT Reading Location ID and State: [address] [place] [address] , Service support , Echocardiogram 02/21/23 12:31 Interpretation Summary The estimated ejection fraction is 70 %. Normal diastology for age. Ordering Physician: Pantera Almodovar Referring Physician: No PCP Performed By: Alvarez Roche RCS D/C Instructions Discharge Diet: No restrictions Discharge Activity: Return to Normal Activity Call your doctor if you observe: Fever of 101 or Higher, Shortness of breath, Fainting spells and Chest pain Meaningful Use Info Meaningful Use Diagnoses (Choose all that apply): Ischemic CVA CVA Therapy Assessed for PT,OT and/or ST?: Yes Ischemic Stroke Antithrombotic order at d/c?: Yes Dx of Atrial fib/flutter?: No Statins at discharge?: Yes Primary Dx Acute Ischemic CVA?: Yes IV thrombolytic ordered during stay?: No Reason IV thrombolytic not ordered: Treatment not Indicated Discharge Plan Admission Admit Date/Time: 02/22/23 10:04 Attending Provider: Pantera Almodovar Primary Care Provider: Care Physician,Terra Primary Discharge Orders/Prescriptions Prescriptions: New atorvastatin 80 mg Tablet 80 mg PO QHS Qty: 0 0RF acetaminophen 325 mg Tablet 650 mg PO Q6H PRN PRN (Reason: Pain 1-10 Or Fever>100.7) Qty: 0 0RF sennosides-docusate sodium [Stool Softener-Stimulant Laxat] 8.6-50 mg Tablet 2 tab PO BID PRN PRN (Reason: Constipation) Qty: 0 0RF melatonin 3 mg Tablet 3 mg PO QHS PRN PRN (Reason: Insomnia) Qty: 0 0RF aspirin 81 mg Tablet,Delayed Release (Dr/Ec) 81 mg PO BREAKFAST Qty: 0 0RF alum-mag hydroxide-simeth [Mag-Al Plus Extra Strength] 400-400-40 mg/5 mL Suspension 30 ml PO Q6H PRN PRN (Reason: Gastric Burning) Qty: 0 0RF amlodipine 10 mg tablet 10 mg PO DAILY Qty: 1 0RF clopidogrel [Plavix] 75 mg tablet 75 mg PO DAILY Qty: 20 0RF Referrals / Follow Up: Care Physician,No Primary [Primary Care Provider] - Disposition Disposition (needs filled in before D/C Order can be placed): Inpatient Rehab Unit/Facility Charges/Coding Visit Charges Inpatient E&M: 80169 Disch Hosp >30min
--- NOTE | 2023-02-22 12:22 | CASEMGMT ---
CM confirmed that patient would like to go to Inpatient Rehab at [facility]. Patient was accepted in the rehab unit. SW notified physician and he will discharge patient today. MITZI notified Marcia with Rehab, patient, RN, and her daughter. Plan: d/c to [facility] Acute Rehab Unit. Madai NEVAREZ
[2023-02-22 13:49] LABS: Hemoglobin A1c 6.1 % (3.8-5.6)
--- NOTE | 2023-02-22 14:28 | CHAPLAIN ---
Type of Pastoral Visit ___ Initial Visit ___ Follow-up Visit ___ On-call Visit ___ General Patient Visit ___ Spiritual Assessment ___ Family Conference ___ Bereavement ___ Rapid Response ___ Code Blue ___ Other (describe below) Pastoral Care Referral From ___ Patient ___ Family ___ Nurse ___ Physician ___ Food And Beverage Order Clerk ___ Psychology Lecturer ___ Other (describe below) Sacrament/Intervention ___ Active listening ___ Anointing ___ Amish ___ Bereavement ___ Communion ___ Harini exploration ___ ___ Life review ___ Prayer ___ Reconciliation ___ Sacrament of Sick ___ Supportive presence ___ Wedding ___ Other (describe below) Pastoral Comments patient was asleep and did not awaken her at this time
--- NOTE | 2023-02-22 15:00 | NURSING ---
This rn called report to NANCI Molina at 1456 on the rehab unit.
== END 2023-02-22 12:17 | DRG 65 ==
LOC: ED 10:07 → PCU 11:25
PROVIDERS: Admitting Provider Internal Medicine; Emergency Provider Emergency Medicine; Visit Provider Internal Medicine
DX: I63.81 Other cerebral infarction due to occlusion or stenosis of small artery (principal); G81.91 Hemiplegia, unspecified affecting right dominant side; E78.5 Hyperlipidemia, unspecified; I10 Essential (primary) hypertension; I65.23 Occlusion and stenosis of bilateral carotid arteries; E66.9 Obesity, unspecified; Z68.34 Body mass index [BMI] 34.0-34.9, adult; R27.0 Ataxia, unspecified; R29.703 NIHSS score 3; R73.9 Hyperglycemia, unspecified; Z87.891 Personal history of nicotine dependence
CPT/HCPCS: 36415; 70450; 70496; 70498; 70551; 71045; 80048; 80061; 82962; 83036; 83735; 84100; 84484; 85025; 85610; 85730; 93005; 93306; 94668; 94762; 97162; 97166; 97802; 99285; J7030; Q9957; Q9967; A4216; C8929; J2405

== ENCOUNTER 2023-02-22 16:15 | Inpatient (IN) | payer MEDICARE, SELFPAY ==
[2023-02-22 16:22] VITALS: BMI 39.4
[2023-02-22 16:56] VITALS: BP 197/85; PULSE 80; RESP 17; TEMP 36.6; O2SAT 97
[2023-02-22 17:05] VITALS: BMI 39.4
[2023-02-22 18:18] VITALS: O2SAT 97
[2023-02-22] MEDS: Ondansetron ODT 4 MG Tablet PO (18:55)
[2023-02-22 20:00] VITALS: BP 198/93; PULSE 77; RESP 16; TEMP 36.4; O2SAT 97
[2023-02-22 20:11] VITALS: BP 198/93; PULSE 77
[2023-02-22] MEDS: Metoprolol Tartrate 25 MG Tablet PO (20:11)
[2023-02-22] MEDS: hydrALAZINE 25 MG Tablet PO (20:11)
[2023-02-22] MEDS: Atorvastatin Calcium 80 MG Tablet PO (20:12)
[2023-02-22 21:03] VITALS: BMI 39.4
[2023-02-22] MEDS: 0.9% Saline Lock 10 ML Syringe IV (21:28)
[2023-02-22 21:32] VITALS: BP 173/79; PULSE 64
[2023-02-23] VITALS (10 sets, daily range): BP systolic 129–191; BP diastolic 63–82; PULSE 62–76; RESP 17; TEMP 36.7–36.8; O2SAT 96–98; BMI 39.4
[2023-02-23] MEDS: Enoxaparin 40 MG/0.4 ML Syringe SC (05:50)
[2023-02-23] MEDS: Metoprolol Tartrate 25 MG Tablet PO ×3 (05:52→21:04)
[2023-02-23] MEDS: Aspirin E.C. 81 MG Tablet PO (08:27)
[2023-02-23] MEDS: amLODIPine 10 MG Tablet PO (08:27)
[2023-02-23] MEDS: Clopidogrel Bisulfate 75 MG Tablet PO (08:27)
[2023-02-23] MEDS: Pantoprazole Sodium 40 MG Tablet PO (08:27)
--- NOTE | 2023-02-23 10:47 | EX.PCM.HP.RE ---
[facility] - General General Date of Admission: 02/22/23 Date of Service: 02/23/23 Chief Complaint: Post Stroke debility. HPI Narrative CRISTI LAZCANO, is a 72 YO F with a PMH of obesity. She takes no prescription medications. Her PCP retired and she has not been seen by a physician for a long time. She presented the emergency department at [facility] in the a.m. on 02/21/2023 complaining of losing her balance and weakness on the R side of her body that was present when she awoke.. When she went to bed she was in her normal state of health. A stat noncontrast CT brain was negative for any acute findings. CTA of the head and neck showed mild calcific plaque formation at the origins of both the right and left internal carotid arteries causing less than 50% narrowing. The blood pressure was markedly elevated at 215/86 and she had no history of hypertension. The heart rate was 74. NIHSS was 3 in the emergency department for drift with the right arm and right leg and mild ataxia of the right hand. Lab was unremarkable with the exception of an elevated random blood sugar of 123. Consult was obtained with teleneurology and she was outside the time window for administration of the thrombolytic. There was no LVO on the CTA and lab and studies recommended were all ordered by the hospitalist. She was admitted to the hospitalist service and MRI and echocardiogram were ordered. She was started on an antiplatelet agent and a statin. Lab the following morning showed an elevated glucose at 118 and the hemoglobin A1c was elevated at 6.1. Magnesium and phosphorus were within normal limits. Total cholesterol was 216 with an LDL of 150 and an HDL of 44. MRI showed a left lateral thalamic acute 5 mm lacunar infarct with no evidence of large territorial ischemia. There was no evidence of intracerebral bleed or mass. TTE showed a normal size left ventricle with an estimated ejection fraction of 70% and normal diastology for age. The right ventricle was also normal in size with normal systolic function. There was no atrial enlargement and the bubble contrast study was negative for a right to left interatrial shunt. There was no significant valvular heart disease. There was no left ventricular hypertrophy. She seen by PT/OT/ST and recommendation for acute rehab at discharge was made. She was transferred to the acute inpatient rehab unit at [facility] on 02/22/2023 for 3 hours of therapy daily to restore function/independence at or near her prior level. While in the hospital there was a consult with [facility] neurology ordered but, I can not find that a consult was ever done. All lab obtained while in the hospital was personally reviewed. Blood pressure upon arrival at rehab was 197/85. She had been receiving as needed IV hydralazine while on PCU. She was started on metoprolol 25 mg p.o. every 8 hours and an order for as needed oral hydralazine 25 mg every 4 hours as needed for systolic greater than 170 or diastolic > 90. She has received 2 doses of hydralazine since coming to rehab and that was at 8:10 last evening and approximately 230 this afternoon. The hydralazine brings the BP down nicely and the recheck on the blood pressure this afternoon after hydralazine was 148/76, down from 191/82. Heart rate is within normal limits with no bradycardia. [facility] Medical History (Updated 02/23/23 @ 17:[address] Evelia Lincoln, ) History of major depression Obesity (BMI 35.0-39.9 without comorbidity) Home Medications acetaminophen 325 mg tablet 650 mg PO Q6H PRN PRN Pain 1-10 Or Fever>100.7 #0 tabs 02/22/23 [Rx Last Taken Unknown] aluminum-mag hydroxide-simethicone 400 mg-400 mg-40 mg/5 mL oral susp (Mag-Al Plus Extra Strength) 30 ml PO Q6H PRN PRN Gastric Burning #0 mL 02/22/23 [Rx Last Taken Unknown] amlodipine 10 mg tablet 10 mg PO DAILY BP 02/22/23 [History Last Taken Unknown] aspirin 81 mg tablet,delayed release 81 mg PO BREAKFAST heart health 02/22/23 [History Last Taken Unknown] atorvastatin 80 mg tablet 80 mg PO QHS cholesterol 02/22/23 [History Last Taken Unknown] clopidogrel 75 mg tablet (Plavix) 75 mg PO DAILY Check with primary doctor 02/22/23 [History Last Taken Unknown] enoxaparin 40 mg/0.4 mL subcutaneous syringe (Lovenox) 40 mg subcut DAILY Check with primary doctor 02/22/23 [History Last Taken Unknown] hydralazine 25 mg tablet 25 mg PO Q6H PRN PRN increased BP 02/22/23 [History Last Taken Unknown] melatonin 3 mg tablet 3 mg PO QHS PRN PRN Insomnia #0 tabs 02/22/23 [Rx Last Taken Unknown] metoprolol tartrate 25 mg tablet 25 mg PO Q8H hypertension 02/22/23 [History Last Taken Unknown] pantoprazole 40 mg tablet,delayed release (Protonix) 40 mg PO DAILY Check with primary doctor 02/22/23 [History Last Taken Unknown] Allergy/AdvReac Type Severity Reaction Status Date / Time citric acid Allergy Hives Verified 02/23/23 17:32 Food Allergies: Uncoded Allergy Hives Verified 02/23/23 17:31 rice Allergy Hives Verified 02/23/23 17:31 wheat Allergy Hives Verified 02/21/23 08:55 Family History (Updated 02/23/23 @ 17:[address] Evelia Lincoln DO) Brother Heart disease Brother Heart disease Mother Diabetes Surgical History History of appendectomy Hx of cardiac cath Social History (Updated 02/23/23 @ 17:[address] 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 pets and animals: No leisure activities: clubs and other do you think of yourself as: straight/heterosexual current gender identity: female Smoking Status: Never smoker alcohol intake: current alcohol intake frequency: holidays/special occasions only substance use type: does not use diet: other ROS Constitutional Constitutional: Denies anorexia, change in weight, chills, fatigue, fever(s) or night sweats Eyes Eyes: Denies blurry vision, change in vision, eye pain or loss of vision ENT HEENT: Denies abnormal hearing, dysphagia, headache(s), hearing loss, nasal congestion or sore throat Cardiovascular Cardiovascular: Denies chest pain, dyspnea on exertion, edema, lightheadedness, orthopnea, palpitations, paroxysmal nocturnal dyspnea or syncope Respiratory/Chest Respiratory/Chest: Denies cough, dyspnea, shortness of breath at rest, shortness of breath with exertion or wheezing Gastrointestinal Gastrointestinal: Reports other Details: appetite has been somewhat decreased since the stroke ; Denies abdominal pain, constipation, diarrhea, dyspepsia, hematemesis, hematochezia, nausea or vomiting Genitourinary Genitourinary: Denies dysuria, hematuria, nocturia, urinary frequency, urinary hesitancy, urinary incontinence or urinary urgency Musculoskeletal Musculoskeletal: Reports joint pain and joint stiffness; Denies back pain, joint swelling or neck pain Integumentary Integumentary: Reports other Details: she denies get hives occasionally due to food allergies. ; Denies jaundice, rash or wounds Neurologic Neurologic: Reports abnormal gait, disequilibrium, focal weakness and lack of coordination; Denies abnormal speech, confusion, dizziness, headache(s), numbness, paresthesias, seizures, sensory deficit, tingling or tremor(s) Psychiatric Psychiatric: Reports other Details: She has a hx of depression and has been on medication for depression 2 times. Has also seen a psychiatrist for depression. The depression was thought to be due to stress. 1 episode was work related and the other due to multiple deaths in her family in a short amount of time. She tells me she is not having any of the sx she has had in the past with depression. ; Denies anxiety, depression, homicidal ideation or suicidal ideation Endocrine Endocrinology: Denies change in body appearance, polydipsia or polyuria Hematologic/Lymphatic Hematologic/Lymphatic: Denies easy bleeding, easy bruising or lymphadenopathy Allergic/Immunologic Allergic/Immunologic: Denies rhinitis, eczemia or asthma Vital Signs Vital Signs Vital Signs: 02/22/23 16:56 02/22/23 18:18 02/22/23 20:11 Temperature 97.9 F Temperature Source Oral Pulse Rate 80 77 Respiratory Rate 17 Respiratory Effort Respiratory Depth Respiratory Pattern Blood Pressure 197/85 H 198/93 H Blood Pressure Mean 122 Blood Pressure Source Monitor Blood Pressure Position Semi-Fowlers Blood Pressure Location Right Arm Pulse Ox 97 97 Oxygen Delivery Method Room Air Room Air 02/22/23 20:11 02/22/23 20:00 02/22/23 21:32 Temperature 97.5 F L Temperature Source Temporal Pulse Rate 77 77 64 Respiratory Rate 16 Respiratory Effort Respiratory Depth Respiratory Pattern Blood Pressure 198/93 H 198/93 H 173/79 H Blood Pressure Mean 128 110 Blood Pressure Source Monitor Monitor Blood Pressure Position Semi-Fowlers Semi-Fowlers Blood Pressure Location Right Arm Right Arm Pulse Ox 97 Oxygen Delivery Method Room Air 02/22/23 20:00 02/23/23 05:52 02/23/23 06:36 Temperature Temperature Source Pulse Rate 69 Respiratory Rate Respiratory Effort Normal Non-Labored Respiratory Depth Normal Respiratory Pattern Normal Blood Pressure 129/63 H Blood Pressure Mean Blood Pressure Source Blood Pressure Position Blood Pressure Location Pulse Ox 97 97 Oxygen Delivery Method Room Air Room Air 02/23/23 07:15 Temperature 98.2 F Temperature Source Temporal Pulse Rate 71 Respiratory Rate 17 Respiratory Effort Respiratory Depth Respiratory Pattern Blood Pressure 129/63 H Blood Pressure Mean 85 Blood Pressure Source Monitor Blood Pressure Position Semi-Fowlers Blood Pressure Location Right Arm Pulse Ox 98 Oxygen Delivery Method Room Air Weight Weight: 202 lb Body Mass Index (BMI) 39.4 Indicators for Scoring Admitted with or Primary Diagnosis of CVA/Stroke: Yes Hx of CVA/Stroke: Yes Modified [place] Score MRS Score at time of Evaluation: 4-Moderate/severe disability NIHSS NIHSS 1b. LOC Questions: Answers BOTH questions correctly. 1c. LOC Commands: Performs both tasks correctly. 2. Best Gaze: Normal 3. Visual: No visual loss 4. Facial Palsy: Normal symmetrical movements 5a. Left Arm: No drift; arm holds 90 (or 45) degrees for full 10 seconds 5b. Right Arm: Drift; arm drifts downward but doesn?t hit the bed 6a. Left Leg: No drift; leg holds 30-degree position for full 5 seconds 6b. Right Leg: Drift; leg falls by the end of 5-seconds, but does not hit bed 7. Limb Ataxia: Present in 1 limb (Right upper extremity) 8. Sensory: Normal; no sensory loss 9. Best Language: No aphasia; normal 11. Extinction and Inattention: No abnormality Total: 3 Stroke Questions Stroke Team Activated: No Physical Exam Const alert, oriented x3 and no apparent distress Constitutional Narrative: Pleasant and talkative. Had a few tears but, they were appropriate. She is sad about having a stroke and needing assistance to do her ADL's. She is also worried about her future. 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 She has no significant valvular heart disease on the ECHO but, she has a systolic murmur heard best at the second right intercostal space with radiation to the left ventricular outflow tract, lower left sternal border, apex and into the left axilla. General: trachea midline Resp normal respiratory effort, normal air movement and clear to auscultation bilaterally Effort and Inspection: Negative for tachypneic or labored Cardio regular rate, regular rhythm, S1 normal heart sound, S2 normal heart sound, no rub and no gallops Cardio Narrative: She has a 2/6 to 3/6 systolic ejection murmur heard best at the second right intercostal space but has radiation to the left ventricular outflow track, lower left sternal border, apex and into the left axilla. No ectopy while I was examining her. Rate: Negative for bradycardia or tachycardic Rhythm: Negative for abnormal rhythm GI normal to inspection, nondistended, normoactive bowel sounds, soft to palpation and non-tender GI Narrative: No masses, no hepatosplenomegaly, no abdominal bruits. Extremity normal capillary refill and no calf tenderness General Extremity: Negative for clubbing or edema Skin no wounds and no jaundice Skin Narrative: She has hives that come and go and has multiple food allergies. She tells me they are generally not pruritic. General Skin Exam: no breakdown Neuro CN's II-XII intact bilaterally and no sensory deficits noted Neuro Narrative: She had just weakness in the right upper extremity and the right lower extremity and also deficits in proprioception with the right side. No visual loss. Thought processes is intact and she has no dysarthria no dysphagia. She has some ataxia with the [id number] test on the right upper extremity but has no ataxia on either side with the [id number] test. Psych thought process normal, cooperative and affect normal Appearance: appropriate Thought Content: No suicidality and No homicidality Assessment & Plan Assessment/Plan (1) Physical debility: (2) Acute CVA (cerebrovascular accident): (3) Ataxia due to acute cerebrovascular disease: (4) Disequilibrium: (5) Acute right-sided weakness: (6) Prediabetes: (7) Hypertension: PLAN: No hx of this (8) Obesity (BMI 35.0-39.9 without comorbidity): (9) Hyperlipidemia: (10) History of major depression: (11) Multiple food allergies: PLAN: Plan PLAN PT for gait stability OT for ADL's ST for evaluation Analgesics as needed Bowel protocol Fall precautions Assess for Anxiety/Depression GI prophylaxis with Protonix 40 mg p.o. daily since she is not on 2 antiplatelet agents and at risk for gastritis. DVT prophylaxis with Lovenox Follow up with neurology and PCP post DC. She will need to find a new PCP. Continue metoprolol 25 mg p.o. every 8 hours and amlodipine 10 mg daily and as needed hydralazine. Continue atorvastatin 80 mg p.o. daily and will need a recheck on the lipid profile, liver panel and CK in 6 weeks. Overnight trending pulse ox. BMI is > 35, She has HTN and her age is >50. She lives alone and does not know if she snores. She also has a hx of depression. Will complete the sleep lab assessment form for EAV with her tomorrow. Continue dual antiplatelet agents for 1 month and then decrease to either aspirin or Plavix only Consult the dietitian to educate Liliana on weight loss, hyperlipidemia and glucose intolerance to lessen chance for development of diabetes mellitus type 2 and help control lipids. Charges/Coding Visit Charges Inpatient E&M: 02823 Init Hosp L3
[2023-02-23] MEDS: hydrALAZINE 25 MG Tablet PO (14:38)
--- NOTE | 2023-02-23 17:53 | REHABEVAL_ITS ---
Admission Information Primary Diagnosis:: Post stroke debility Status Changes from Prescreening?: No changes Identified Actual Problem List:: Depression, Alteration in Sleep, Alteration in Nutrition, Mobility Impaired, Self Care Deficit, BP, Hypertension and Alteration-Leisure Activ. Potential Problem List:: DVT, Bleeding, Infection, UTI, Aspiration, Falls, Skin Integrity and Depression Risk of Complications DVT: LMWH and ALLEN Hose Bleeding: Monitor Lab Values, Nursing to Teach Precautions for anti-coagulation therapy., Wound, if applicable, to be assessed every shift. and Stroke patients assessed for lethargy or change in status. Infection: Clinical Staff to Monitor for S/S of infection: and S/S of infection include fever, redness, warmth, etc. Urinary Tract Infection: Monitor for frequency, burning, discomfort, or incontinence. and Nursing will obtain urine sample for urinalysis and C&S when ordered. Aspiration: Clinical staff will monitor for coughing, drooling, congestion., Speech will evaluate swallowing and dsyphasia. and Nursing will monitor patient swallowing during meals. Falls: Patient will be evaluated for Fall Precautions and Patient will be placed on Fall Precautions as indicated per protocol. Skin Breakdown: Nursing will assess skin daily using assessment tool. and Nursing will place on Skin Breakdown Precautions as indicated. Pain: Clinical staff will assess patient's pain level per protocol., Medications will be given, if needed, and the pain level reassessed. and Other methods: Massage, distraction, decrease stimulus, etc. used PRN. Plan of Care Patient requires physician specializing in physical medicine and rehab oversight to provide close medical supervision of rehab issues including: Pain Management, Sleep Problems, Bowel and Bladder, Medical and co-morbidity Management, DVT prophylaxis, Rehabilitation Leadership and Coordination of treatment team Patient needs Physical Therapy: For a minimum of 1 hour and At least 5 out of 7 days Patient needs Physical Therapy to improve:: Mobility, Strengthening, Transfers, Stretching, ROM, Endurance, Stairs, Gait and Balance Patient needs Occupational Therapy: For a minimum of 1 hour and At least 5 out of 7 days Patient needs Occupational Therapy to improve ADL's incl.: Eating, Grooming, Bathing, Dressing, Toileting, Toilet transfers, Community Reintegration, Higher functioning activities, Household tasks, Adaptive Equipment, Splinting and Other activities as determined Patient requires speech therapy: For a minimum of 1 hour and At least 5 out of 7 days Patient requires speech therapy for: Swallowing, Cognition, Language Skills and Compensatory Strategies Patient requires 24/ Rehabilitation Nursing for: Pain Issues, Identifying and preventing risk factors, Monitoring and reporting current medical conditions, Assisting with ambulation, transfer, and all ADL's, Teaching patients about disease process and medications, Family teaching, Providing safe environment, Bowel and Bladder Issues, Skin integrity and Medication Management Patient needs Tax Collection Coordinator/ Case Management for: Discharge Planning, Arranging Home Equipment or Services and Family Interventions Patient needs Dietary and Nutrition Services for: Adequate Nutrition, Nutritional Supplements and Nutritional Education Goals Patient will remain: free from falls and or injury at time of discharge. Patient will perform bed mobility at: MOD I level of assist. Patient will complete transfers from bed to chair at: MOD I level of assist. Patient will ambulate: - (400 ft with LRD) Patient will complete upper body dressing at: MOD I level of assist. Patient will complete lower body dressing at: MOD I level of assist. (using AE) Patient will complete toileting at: MOD I level of assist. Patient will perform bathing at: MOD I level of assist. Patient will complete grooming at: MOD I level of assist. Patient will complete home management skills at: MOD I level of assist. Patient will achieve: - (1 curb step and 2 steps with 1 HR at SBA) Patient will have pain level of: of 3 or less Patient's skin will: remain intact Patient will receive: adequate nutrition. Discharge Planning Pt Prognosis for Sig. Practical Improv. w/in Reasonable Time: Good Estimated Length of stay (days): 21 Anticipated D/C Destination: Home with Home Health Was Preadmission Assessment Accurate?: Yes
[2023-02-23] MEDS: Menthol/Lanolin/Calamine/Znox 113 GM Tube 1 APPLIC TOPICAL (21:03)
[2023-02-23] MEDS: Senna/Docusate Sodium 1 Tablet PO (21:04)
[2023-02-23] MEDS: Atorvastatin Calcium 80 MG Tablet PO (21:04)
[2023-02-24] VITALS (11 sets, daily range): BP systolic 141–157; BP diastolic 64–83; PULSE 61–74; RESP 14–16; TEMP 36.7–36.8; O2SAT 94–97; BMI 39.4
[2023-02-24] MEDS: DiphenhydrAMINE 25 MG Capsule PO (02:36)
[2023-02-24] MEDS: Enoxaparin 40 MG/0.4 ML Syringe SC (06:30)
[2023-02-24] MEDS: Metoprolol Tartrate 25 MG Tablet PO ×3 (06:30→22:06)
[2023-02-24] MEDS: Menthol/Lanolin/Calamine/Znox 113 GM Tube 1 APPLIC TOPICAL ×2 (06:31→22:05)
[2023-02-24] MEDS: Pantoprazole Sodium 40 MG Tablet PO (07:46)
[2023-02-24] MEDS: Aspirin E.C. 81 MG Tablet PO (07:46)
[2023-02-24] MEDS: amLODIPine 10 MG Tablet PO (07:46)
[2023-02-24] MEDS: Clopidogrel Bisulfate 75 MG Tablet PO (07:46)
--- NOTE | 2023-02-24 11:01 | CASEMGMT ---
Social Work Completed advanced directives with pt. Pt named dtr, primary and sister secondary. Original and copy provided to pt. Copy placed on chart. Priyanka Levy, WARD ATTENDANT HIDE DYER
--- NOTE | 2023-02-24 11:51 | PCM.PROGNOTE ---
Subjective Subjective afebrile VSS - She has not had any Hydralazine since the afternoon of 02/23/22. Maintaining appropriate oxygen saturation on RA. I reviewed the overnight trending pulse ox and 94.31% of the monitoring. She was 90% saturated or above. For 5.7% of the. She was 89% or less. The lowest pulse ox was 80%. The heart rate was between 50 and 5955.18% of the time. She is on a beta-jackie. Oral intake is good. She is eating 75 to 100% of her last 2 meals. Discussed with nursing -last night she once again had hives and pruritus and I suspect this may be medication related rather than food related. She was on no prescribed medications at admission to the hospital and now is taking amlodipine, aspirin, atorvastatin, Plavix, metoprolol, hydralazine and pantoprazole. The newest of these medications is the pantoprazole and Lopressor which were added at presentation to rehab. Reviewed the PT/OT/ST notes Medication list reviewed. Jessica woke up with spasms in the RLE last night. She was gradually able to work this out. She does not get these spasms at home. She does have some hypertonicity of the RLE on my exam yesterday and PT mentioned this as well. I explained that since I think she is having a reaction to one of the medications I am going to have to hold them 1 at a time to figure out which of the new medications she is allergic to. AND, I do not want to add a new medication to further confuse the issue. She is good with this. Objective Data Objective Data Vital Signs: Vital Signs Temp Pulse Resp BP Pulse Ox O2 Del Method 98.0 F 61 14 155/74 H 97 Room Air 02/24/23 06:33 02/24/23 10:00 02/24/23 06:33 02/24/23 10:00 02/24/23 08:55 02/24/23 08:55 Oxygen Delivery Method Room Air Weight: 202 lb 0.012 oz Body Mass Index (BMI) 39.4 Intake & Output: Intake and Output for Last 24 Hours 02/22/23 02/23/23 02/24/23 23:59 23:59 23:59 Intake Total 360 / 360 Output Total 450 / 450 200 / 200 150 / 150 Balance -450 / -450 160 / 160 -150 / -150 Physical Exam Const alert, oriented x3 and no apparent distress General Appearance: cooperative HEENT moist oral mucous membranes Resp clear to auscultation bilaterally Cardio regular rate and regular rhythm Cardio Narrative: no ectopy GI normal to inspection, nondistended, normoactive bowel sounds and soft to palpation Extremity no calf tenderness General Extremity: Negative for edema Skin Rashes: no rashes Wounds: Negative for wounds noted Assessment & Plan Assessment/Plan (1) Physical debility: (2) Acute CVA (cerebrovascular accident): (3) Ataxia due to acute cerebrovascular disease: (4) Disequilibrium: (5) Acute right-sided weakness: (6) Prediabetes: (7) Hypertension: (8) Obesity (BMI 35.0-39.9 without comorbidity): (9) Hyperlipidemia: (10) History of major depression: (11) Multiple food allergies: (12) Allergic dermatitis: PLAN: Plan 1. Continue therapy 2. Hold atorvastatin. The hives seem to come in the middle of the night and the only medication she is taking at night is atorvastatin. If in a few days she is still getting pruritus and hives will need to discontinue another medication to figure out what it is she is having a allergic reaction to. 3. Continue the PRN benadryl Charges/Coding Visit Charges Inpatient E&M: 84519 Subs Hosp L2
[2023-02-24] MEDS: Magnesium Hydroxide 30 ML UDC PO (17:42)
[2023-02-25] VITALS (9 sets, daily range): BP systolic 136–151; BP diastolic 64–71; PULSE 65–77; RESP 15–18; TEMP 36.4–37.2; O2SAT 93–97; BMI 39.4
[2023-02-25] MEDS: Metoprolol Tartrate 25 MG Tablet PO ×3 (06:26→21:31)
[2023-02-25] MEDS: Enoxaparin 40 MG/0.4 ML Syringe SC (06:27)
[2023-02-25] MEDS: Menthol/Lanolin/Calamine/Znox 113 GM Tube 1 APPLIC TOPICAL ×2 (06:29→21:31)
[2023-02-25] MEDS: amLODIPine 10 MG Tablet PO (07:56)
[2023-02-25] MEDS: Pantoprazole Sodium 40 MG Tablet PO (07:56)
[2023-02-25] MEDS: Aspirin E.C. 81 MG Tablet PO (07:56)
[2023-02-25] MEDS: Clopidogrel Bisulfate 75 MG Tablet PO (07:56)
[2023-02-26] VITALS (11 sets, daily range): BP systolic 139–183; BP diastolic 62–79; PULSE 62–78; RESP 16; TEMP 36.7–37.1; O2SAT 97–100; BMI 39.4
[2023-02-26] MEDS: Metoprolol Tartrate 25 MG Tablet PO ×3 (06:39→20:41)
[2023-02-26] MEDS: Enoxaparin 40 MG/0.4 ML Syringe SC (06:40)
[2023-02-26] MEDS: Menthol/Lanolin/Calamine/Znox 113 GM Tube 1 APPLIC TOPICAL ×2 (06:41→20:37)
[2023-02-26] MEDS: Pantoprazole Sodium 40 MG Tablet PO (08:27)
[2023-02-26] MEDS: amLODIPine 10 MG Tablet PO (08:27)
[2023-02-26] MEDS: Clopidogrel Bisulfate 75 MG Tablet PO (08:27)
[2023-02-26] MEDS: Aspirin E.C. 81 MG Tablet PO (08:27)
--- NOTE | 2023-02-26 11:26 | PCM.PN.BLA ---
Progress Note Afebrile VSS - Has not had any Hydralazine since the 7th. Systolic is mildly elevated but, the diastolic is within goal. Maintaining appropriate oxygen saturation on RA Oral intake is good occasional urinary incontinence. No fecal incontinence. Discussed with nursing - no problems that need addressed. Has not had to have Benadryl since the Atorvastatin was discontinued. Reviewed the PT/OT/ST notes Medication list reviewed. Impressions 1. post stroke debility 2. elevated HGBA1C 3. HLD 4. Obesity 5. HTN HTN is acceptable at this time. Towards the middle of the week if the systolic is still elevated will adjust the antihypertensives to get the systolic below 130. Will try a different lipid lowering agent this week Continue therapy.
[2023-02-26] MEDS: hydrALAZINE 25 MG Tablet PO (20:40)
[2023-02-27] VITALS (8 sets, daily range): BP systolic 123–160; BP diastolic 58–72; PULSE 61–71; RESP 16–17; TEMP 36.3–36.7; O2SAT 96–98; BMI 39.4
[2023-02-27] MEDS: Enoxaparin 40 MG/0.4 ML Syringe SC (05:08)
[2023-02-27] MEDS: Menthol/Lanolin/Calamine/Znox 113 GM Tube 1 APPLIC TOPICAL ×2 (05:08→21:04)
[2023-02-27] MEDS: Metoprolol Tartrate 25 MG Tablet PO ×2 (05:08→14:47)
[2023-02-27] MEDS: Aspirin E.C. 81 MG Tablet PO (07:49)
[2023-02-27] MEDS: amLODIPine 10 MG Tablet PO (07:49)
[2023-02-27] MEDS: Pantoprazole Sodium 40 MG Tablet PO (07:49)
[2023-02-27] MEDS: Clopidogrel Bisulfate 75 MG Tablet PO (07:49)
--- NOTE | 2023-02-27 12:17 | PCM.PROGNOTE ---
Subjective Subjective Jessica was seen on team rounds today. Her daughter, Mary, was present in the room for rounds. Afebrile VSS -blood pressures are not adequately controlled. She had to have hydralazine last evening for blood pressure of 183/74. Blood pressure this a.m. is 156/72 and the systolics have been running in the 150-160 range with a normal diastolic. Maintaining appropriate oxygen saturation on RA Oral intake is good Discussed with nursing - no problems that need addressed Reviewed the PT/OT notes Medication list reviewed. She is currently taking Lopressor 25 mg p.o. every 8 hours and amlodipine 10 mg daily for blood pressure control. No adverse reactions to any of her medications. Hives have resolved with discontinuation of the Atorvastatin. Liliana denies lightheadedness, vertigo, CP, SOB at rest, SOB with exertion, cough, nausea, vomiting, abd pain, diarrhea, constipation, dysuria, calf pain and ankle swelling. Objective Data Objective Data Vital Signs: Vital Signs Temp Pulse Resp BP Pulse Ox O2 Del Method 98.0 F 70 17 156/72 H 96 Room Air 02/27/23 10:00 02/27/23 10:00 02/27/23 10:00 02/27/23 10:00 02/27/23 10:00 02/27/23 10:00 Oxygen Delivery Method Room Air Weight: 202 lb 0.012 oz Body Mass Index (BMI) 39.4 Intake & Output: Intake and Output for Last 24 Hours 02/25/23 02/26/23 02/27/23 23:59 23:59 23:59 Intake Total 120 / 120 Output Total 400 / 400 300 / 300 Balance -400 / -400 -180 / -180 Physical Exam Const alert, oriented x3 and no apparent distress Resp clear to auscultation bilaterally Cardio regular rate, regular rhythm and no gallops GI normal to inspection, nondistended, normoactive bowel sounds and soft to palpation GI Narrative: No guarding with palpation Extremity no calf tenderness General Extremity: Negative for edema Skin General Skin Exam: no breakdown Rashes: no rashes Assessment & Plan Assessment/Plan (1) Physical debility: (2) Acute CVA (cerebrovascular accident): (3) Ataxia due to acute cerebrovascular disease: (4) Disequilibrium: (5) Acute right-sided weakness: (6) Prediabetes: (7) Hypertension: (8) Obesity (BMI 35.0-39.9 without comorbidity): (9) Hyperlipidemia: (10) History of major depression: (11) Multiple food allergies: (12) Allergic dermatitis: PLAN: Hives with Atorvastatin. PLAN: Plan 1. Continue therapy 2. Mary will come in for family training on Monday of this week. 3. Will DC metoprolol 25 mg every 8 hours and start metoprolol XL 50 mg p.o. nightly and adjust as needed. Continue hydralazine as needed for elevated systolic over 170 or diastolic over 90. 4. Start Pravastatin. Benadryl PRN for hives. Charges/Coding Visit Charges Inpatient E&M: 31227 Subs Hosp L2
--- NOTE | 2023-02-27 13:15 | CASEMGMT ---
Social Work IDT met with patient and dtr for Team meeting. Discussed patient's progress in PT/OT/SN. Educated to Medicare approval of 13 days with [facility] 03/07. SW to follow up at the end of the week for DC needs. Will ReTeam next week. Pt's mood has improved as pt is practicing sewing in OT, which is of importance to pt. Plan is to DC home with dtr with outpatient PT/OT. Pt has FWW to use but will need elevate toilet seat. Reminded pt that she does not have part B benefits for therapy and DME needs. Quoted pricing for [employer] evals and treatment, and elevated toilet seat through [employer] therapy store. Spoke with pt about applying for Medicare part B. Plan: DC to dtr's [place] 03/07, [employer] PT/OT, elevated toilet seat BRENTON DasilvaW
[2023-02-27] MEDS: Metoprolol(XL)Succ 50 MG Tablet PO (21:03)
[2023-02-28 06:00] VITALS: BP 142/58; PULSE 64; RESP 16; TEMP 36; O2SAT 95
[2023-02-28] MEDS: Enoxaparin 40 MG/0.4 ML Syringe SC (06:07)
[2023-02-28] MEDS: Menthol/Lanolin/Calamine/Znox 113 GM Tube 1 APPLIC TOPICAL ×2 (06:11→20:13)
[2023-02-28] MEDS: Aspirin E.C. 81 MG Tablet PO (07:49)
[2023-02-28] MEDS: Pantoprazole Sodium 40 MG Tablet PO (07:49)
[2023-02-28] MEDS: amLODIPine 10 MG Tablet PO (07:49)
[2023-02-28] MEDS: Clopidogrel Bisulfate 75 MG Tablet PO (07:49)
[2023-02-28 09:25] VITALS: BP 123/66; PULSE 54
[2023-02-28 09:27] VITALS: BMI 39.4
--- NOTE | 2023-02-28 11:53 | PCM.PROGNOTE ---
Subjective Subjective Afebrile VSS -blood pressures for the past 24 hours have ranged from 123/61 to 160/70. Her last blood pressure was 123/66 at 930 this a.m. with a heart rate of 54. Maintaining appropriate oxygen saturation on RA Oral intake is good Discussed with nursing - no problems that need addressed Reviewed the PT/OT/ST notes Medication list reviewed. Liliana denies lightheadedness, chest pain, shortness of breath, cough, dysuria and calf pain. She is sleeping well and has a good appetite. Denies hives/pruritus in the past few days. Objective Data Objective Data Vital Signs: Vital Signs Temp Pulse Resp BP Pulse Ox O2 Del Method 96.8 F L 54 L 16 123/66 H 95 Room Air 02/28/23 06:00 02/28/23 09:25 02/28/23 06:00 02/28/23 09:25 02/28/23 06:00 02/28/23 06:00 Oxygen Delivery Method Room Air Weight: 202 lb 0.012 oz Body Mass Index (BMI) 39.4 Intake & Output: Intake and Output for Last 24 Hours 02/26/23 02/27/23 02/28/23 23:59 23:59 23:59 Intake Total 120 / 120 1000 / 1000 Output Total 300 / 300 400 / 400 Balance -180 / -180 600 / 600 Physical Exam Const alert, oriented x3 and no apparent distress Constitutional Narrative: Very pleasant. Had no trouble word finding during our conversation. General Appearance: cooperative Resp Resp Narrative: She has a few coarse crackles in the left base posteriorly that did not go away with several deep breaths. Denies cough and SOB and has had no fevers. Has had PNA in the past. 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 PLAN: Plan 1. Continue therapy 2. No changes to the drug regimen today. She was just started on metoprolol XL yesterday and will take 4 to 5 days to reach a steady state. We will continue as needed hydralazine. 3. Liliana and I discussed trying a different statin to control her cholesterol. I told her I would like to start pravastatin and she is agreeable to this. Charges/Coding Visit Charges Inpatient E&M: 34769 Subs Hosp L1
[2023-02-28 14:00] VITALS: BP 149/59; PULSE 59
[2023-02-28 18:00] VITALS: BP 145/66; PULSE 75
[2023-02-28 19:30] VITALS: BP 154/70; PULSE 61; RESP 16; TEMP 36.4; O2SAT 95; BMI 39.4
[2023-02-28 20:12] VITALS: BP 154/70; PULSE 61
[2023-02-28] MEDS: Metoprolol(XL)Succ 50 MG Tablet PO (20:12)
[2023-02-28] MEDS: Pravastatin 40 MG Tablet PO (20:13)
[2023-03-01 06:00] VITALS: BP 136/71; PULSE 54; RESP 16; TEMP 35.8; O2SAT 98; BMI 32.5
[2023-03-01] MEDS: Enoxaparin 40 MG/0.4 ML Syringe SC (06:26)
[2023-03-01 07:52] VITALS: BP 136/71; PULSE 54; RESP 16; TEMP 35.8; O2SAT 98
[2023-03-01] MEDS: amLODIPine 10 MG Tablet PO (08:33)
[2023-03-01] MEDS: Clopidogrel Bisulfate 75 MG Tablet PO (08:33)
[2023-03-01] MEDS: Pantoprazole Sodium 40 MG Tablet PO (08:33)
[2023-03-01] MEDS: Aspirin E.C. 81 MG Tablet PO (08:33)
[2023-03-01 10:11] LABS: Bedside Glucose 124 mg/dL (74-106)
[2023-03-01 13:24] VITALS: BMI 32.5
[2023-03-01 14:00] VITALS: BP 110/68; PULSE 64; O2SAT 99
[2023-03-01 18:00] VITALS: BP 151/80; PULSE 74; RESP 18; TEMP 37.1; O2SAT 98
[2023-03-01 20:48] VITALS: PULSE 66
[2023-03-01] MEDS: Pravastatin 40 MG Tablet PO (20:48)
[2023-03-01] MEDS: Metoprolol(XL)Succ 50 MG Tablet PO (20:48)
[2023-03-01 20:49] VITALS: BP 140/73; PULSE 66; RESP 17; TEMP 36.5; O2SAT 97
[2023-03-02] VITALS (7 sets, daily range): BP systolic 128–165; BP diastolic 65–74; PULSE 58–64; RESP 16; TEMP 36.6–36.8; O2SAT 95–100; BMI 32.5
[2023-03-02] MEDS: Enoxaparin 40 MG/0.4 ML Syringe SC (06:28)
[2023-03-02] MEDS: Pantoprazole Sodium 40 MG Tablet PO (08:15)
[2023-03-02] MEDS: Aspirin E.C. 81 MG Tablet PO (08:15)
[2023-03-02] MEDS: amLODIPine 10 MG Tablet PO (08:15)
[2023-03-02] MEDS: Clopidogrel Bisulfate 75 MG Tablet PO (08:15)
--- NOTE | 2023-03-02 09:37 | PCM.PROGNOTE ---
Subjective Subjective Afebrile VSS -blood pressure is still mildly elevated with systolics in the 140 - 155 range. Diastolics are within goal. Heart rate is in the mid 50s to 74. Maintaining appropriate oxygen saturation on RA Oral intake is good. She is eating 75 to 100% of her meals. Discussed with nursing - no problems that need addressed Reviewed the PT/OT/ST notes Medication list reviewed. Started on pravastatin earlier this week. She had allergic dermatitis, hives, with atorvastatin. Liliana denies lightheadedness, vertigo, CP, SOB at rest, SOB with exertion, cough, nausea, vomiting, abd pain, diarrhea, constipation, dysuria, calf pain and ankle swelling. She denies pain. She is having some muscle spasms in the R leg, mostly after the ALLEN hose have been removed. She is sleeping well and has a good appetite. She is paying attention to the sugar content in foods that she is eating and also salt content. Has been refusing candy that visitors have brought for her. She is keeping lists of questions and things to remember. Wants to know what her weight should be. Does not remember talking to the education and development manager. She has had a few hives at night for the past 2 nights.....she considers this not out of her ordinary. Objective Data Objective Data Vital Signs: Vital Signs Temp Pulse Resp BP Pulse Ox O2 Del Method 98.3 F 58 L 16 143/68 H 95 Room Air 03/02/23 06:29 03/02/23 06:29 03/02/23 06:29 03/02/23 06:29 03/02/23 06:29 03/02/23 06:29 Oxygen Delivery Method Room Air Weight: 166 lb 14.239 oz Body Mass Index (BMI) 32.5 Intake & Output: Intake and Output for Last 24 Hours 02/28/23 03/01/23 03/02/23 23:59 23:59 23:59 Intake Total 800 / 800 Balance 800 / 800 Lab / Micro Data Labs: Laboratory Results - last 24 hr 03/01/23 09:49: POC Glucose 124 H Physical Exam Const alert, oriented x3 and no apparent distress Constitutional Narrative: She was sitting in the recliner practising writing with the R hand. 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 PLAN: Plan 1. Continue therapy 2. Continue pravastatin-if the hives increase over the next few days will discontinue pravastatin and start Zetia. 3. Recheck BMP and magnesium in the AM. 4. I spoke to the dietitian who is seeing Liliana and she will come up again, introduce herself and answer Liliana's questions and offer advice regarding foods to avoid in the future. 5. Liliana's daughter is coming in tomorrow for family training. Proposed discharge date is next Monday. She continues to make progress and is a good candidate for OP therapy at [facility]. She is agreeable to this and her dtr can provide transportation. Liliana and I spent 25 minutes today with education. We reviewed the goals of treatment of hypertension, hyperlipidemia and diabetes. She is not diabetic but her hemoglobin A1c is 6.1%, she has a family history of diabetes mellitus and she is obese. Liliana does not recall talking to the dietitian earlier in her admission and would like to know what her body weight should be and what foods she should avoid to prevent becoming diabetic. I also told her that regular exercise helps to control blood sugars and to lose weight. She is thinking about joining an exercise group at her [facility]. I told her there is also an aminata she can get on her phone for sit and fit, exercises to do in a chair. She is going to tell me if the hives increase and understands the connection to statins. She did not remember the goal for blood pressure control and I repeated it, 130/80. We discussed that her systolic blood pressure is still mildly elevated but she was just transitioned to a long-acting metoprolol a few days ago and will continue this and continue to monitor blood pressures. If by Monday the blood pressure is still above goal will add an DAVID or ARB. Charges/Coding Visit Charges Inpatient E&M: 57182 Subs Hosp L2
--- NOTE | 2023-03-02 15:20 | CASEMGMT ---
Social Work SW met with pt to discuss application for Medicare Part B. SW printed off needed forms and assisted with completion to pt's knowledge. However, pt needs to contact social security for additional questions about recent employer application. SW completed PHQ-9 per protocol and pt expressed angst about returning to the community with no prescription or therapy coverage. SW validated feelings and explored more in depth. Pt and this worker conversed, discussed reframing mindset, guilt and disappointment, being a burden on dtr, and identified coping skills. SW continued to validate and acknowledge feelings and focused on strength of motivation and forward thinking to improve in areas pt feels are weaknesses. SW provided mental health resources if pt's mood has not improved and/or would be interested in ongoing counseling services. SW discussed interventions from a financial aspect. Pt agreeable to complete Medicaid application for any assistance available. SW assisted pt in completing application to pt's knowledge. Dtr to visit this evening and can assist with final completion and return to this worker to fax to [employer]. Pt appreciative. BRENTON DasilvaW
[2023-03-02] MEDS: Metoprolol(XL)Succ 50 MG Tablet PO (20:51)
[2023-03-02] MEDS: Pravastatin 40 MG Tablet PO (20:51)
[2023-03-03 06:00] VITALS: BP 161/67; PULSE 59; RESP 14; TEMP 36.6; O2SAT 99
[2023-03-03] MEDS: Enoxaparin 40 MG/0.4 ML Syringe SC (06:14)
[2023-03-03] MEDS: Menthol/Lanolin/Calamine/Znox 113 GM Tube 1 APPLIC TOPICAL (06:14)
[2023-03-03 06:18] LABS: Anion Gap 1 (5-15); BUN 24 mg/dL (7-18); BUN/Creat Ratio 28.4 RATIO (10-20); Calcium,Total 9.5 mg/dL (8.5-10.1); Chloride 106 mmol/L (98-107); Creatinine, Serum 0.84 mg/dL (0.55-1.02); EST Glomerular Filtration Rate 71 mL/min (>60); Est Glom Filt Rate - Afr Amer 86 mL/min (>60); Estimated Creatinine Clearance 44.76 ml/min; Glucose 108 mg/dL (74-106); Potassium 3.9 mmol/L (3.5-5.1); Sodium Level 137 mmol/L (136-145)
[2023-03-03 07:13] VITALS: BP 161/67; PULSE 60; RESP 14; TEMP 36.6; O2SAT 99
[2023-03-03] MEDS: Aspirin E.C. 81 MG Tablet PO (07:47)
[2023-03-03] MEDS: Pantoprazole Sodium 40 MG Tablet PO (07:47)
[2023-03-03] MEDS: amLODIPine 10 MG Tablet PO (07:47)
[2023-03-03] MEDS: Clopidogrel Bisulfate 75 MG Tablet PO (07:48)
--- NOTE | 2023-03-03 11:05 | PN_ITS ---
Subjective Subjective Afebrile VSS-blood pressures are still not ideally controlled. The diastolics are within goal however the systolics are elevated and they appear to be more elevated later in the day than in the morning. She is currently taking 10 mg of amlodipine at 10 AM and metoprolol 50 mg nightly. HR is in the low 60's and u pper 50's and I do not think we should push the beta jackie any harder. Hydralazine works well for her but, for the sake of compliance I would like to stick to once a day meds. Maintaining appropriate oxygen saturation on RA Oral intake is good Discussed with nursing - no problems that need addressed Reviewed the PT/OT/ST notes Medication list reviewed. BMP done this morning was personally reviewed. Potassium is 3.9 and the sodium is 137. The BUN is 24 with a creatinine that is stable at 0.84. The BUN/CREAT ratio is more elevated in the past and she has tells me that she is drinking a lot of water. She is on ASA, Plavix and Lovenox........denies N/V/Epigastric pain. We have not been checking I&O's Objective Data Objective Data Vital Signs: Vital Signs Temp Pulse Resp BP Pulse Ox O2 Del Method 97.8 F 60 14 161/67 H 99 Room Air 03/03/23 07:13 03/03/23 07:13 03/03/23 07:13 03/03/23 07:13 03/03/23 07:13 03/03/23 07:13 Oxygen Delivery Method Room Air Weight: 166 lb 14.239 oz Body Mass Index (BMI) 32.5 Intake & Output: Intake and Output for Last 24 Hours 03/01/23 03/02/23 03/03/23 23:59 23:59 23:59 Intake Total 120 / 120 120 / 120 Output Total 350 / 350 Balance 120 / 120 -230 / -230 Lab / Micro Data Result Diagrams: 03/03/23 05:38 03/03/23 05:38 Labs: Laboratory Results - last 24 hr 03/03/23 05:38: Sodium 137, Potassium 3.9, Chloride 106, Carbon Dioxide 30.0, Anion Gap 1 L, BUN 24 H, Creatinine 0.84, Estim Creat Clear Calc 44.76, Est GFR (MDRD) Af Amer 86, Est GFR (MDRD) Non-Af 71, BUN/Creatinine Ratio 28.4 H, Glucose 108 H, Calcium 9.5, Magnesium 2.0 Physical Exam Const alert and no apparent distress General Appearance: cooperative HEENT moist oral mucous membranes Resp normal respiratory effort, no use of accessory muscles and clear to auscultation bilaterally Effort and Inspection: Negative for tachypneic or labored Cardio regular rate, regular rhythm and no gallops GI normal to inspection, nondistended, normoactive bowel sounds, non-tender and non-distended GI Narrative: no guarding with palpation Extremity Negative for no calf tenderness General Extremity: Negative for edema Skin General Skin Exam: no breakdown Rashes: no rashes Psych affect normal Assessment & Plan Assessment/Plan (1) Physical debility: (2) Acute CVA (cerebrovascular accident): (3) Ataxia due to acute cerebrovascular disease: (4) Disequilibrium: (5) Acute right-sided weakness: (6) Prediabetes: (7) Hypertension: (8) Obesity (BMI 35.0-39.9 without comorbidity): (9) Hyperlipidemia: (10) Multiple food allergies: (11) Allergic dermatitis: PLAN: Plan 1. Continue therapy 2. Check a Hemoccult stool 3. Monitor intake and output for the next 3 days 4. Check an H&H today 5. Continue pantoprazole 40 mg daily 6. Add lisinopril 5 mg daily to the current drug regimen. Education discussed today included the creation of a memory book and the purpose of dual antiplatelet drugs for the first month. We also went over the sx of stroke using the BE FAST pneumonic. Charges/Coding Visit Charges Inpatient E&M: 77704 Subs Hosp L2
[2023-03-03 11:49] LABS: Hematocrit 39.5 % (37-47); Hemoglobin 13.2 g/dL (12.0-15.0)
[2023-03-03] MEDS: Lisinopril 5 MG Tablet PO (12:02)
[2023-03-03 14:00] VITALS: BP 143/67; PULSE 61
[2023-03-03 15:06] VITALS: BMI 32.5
[2023-03-03 17:58] VITALS: BP 160/73; PULSE 70; RESP 16; TEMP 36.3; O2SAT 98
[2023-03-03 21:46] VITALS: PULSE 65
[2023-03-03] MEDS: Metoprolol(XL)Succ 50 MG Tablet PO (21:46)
[2023-03-03] MEDS: Pravastatin 40 MG Tablet PO (21:47)
[2023-03-03 22:00] VITALS: BP 164/76; PULSE 65; PULSE 72; RESP 16; TEMP 36.4; O2SAT 98; O2SAT 99
[2023-03-03 22:10] VITALS: BMI 32.5
[2023-03-04 06:00] VITALS: BP 123/61; PULSE 55; RESP 16; TEMP 37; O2SAT 99
[2023-03-04] MEDS: Enoxaparin 40 MG/0.4 ML Syringe SC (06:38)
[2023-03-04] MEDS: Pantoprazole Sodium 40 MG Tablet PO (07:41)
[2023-03-04] MEDS: Lisinopril 5 MG Tablet PO (07:41)
[2023-03-04] MEDS: Aspirin E.C. 81 MG Tablet PO (07:41)
[2023-03-04] MEDS: amLODIPine 10 MG Tablet PO (07:42)
[2023-03-04] MEDS: Clopidogrel Bisulfate 75 MG Tablet PO (07:42)
[2023-03-04 09:25] VITALS: BMI 32.5
[2023-03-04 14:00] VITALS: BP 127/63; PULSE 68
[2023-03-04 18:00] VITALS: BP 140/67; PULSE 68
[2023-03-04 20:00] VITALS: PULSE 61; RESP 18; O2SAT 97; BMI 32.5
[2023-03-04 20:31] VITALS: BP 141/60; PULSE 61
[2023-03-04] MEDS: Metoprolol(XL)Succ 50 MG Tablet PO (20:31)
[2023-03-04] MEDS: Pravastatin 40 MG Tablet PO (20:31)
[2023-03-05 06:00] VITALS: BP 134/65; PULSE 54; RESP 16; TEMP 36.8; O2SAT 98
[2023-03-05] MEDS: Enoxaparin 40 MG/0.4 ML Syringe SC (06:15)
[2023-03-05] MEDS: amLODIPine 10 MG Tablet PO (08:20)
[2023-03-05] MEDS: Pantoprazole Sodium 40 MG Tablet PO (08:20)
[2023-03-05] MEDS: Clopidogrel Bisulfate 75 MG Tablet PO (08:20)
[2023-03-05] MEDS: Lisinopril 5 MG Tablet PO (08:20)
[2023-03-05] MEDS: Aspirin E.C. 81 MG Tablet PO (08:21)
[2023-03-05 09:39] VITALS: BMI 32.5
[2023-03-05 14:00] VITALS: BP 107/59; PULSE 63
[2023-03-05 18:00] VITALS: BP 163/70; PULSE 73
[2023-03-05 19:30] VITALS: PULSE 66; RESP 17; O2SAT 99; BMI 32.5
[2023-03-05 19:53] VITALS: BP 144/65; PULSE 66
[2023-03-05] MEDS: Pravastatin 40 MG Tablet PO (19:53)
[2023-03-05] MEDS: Metoprolol(XL)Succ 50 MG Tablet PO (19:53)
[2023-03-06] MEDS: Enoxaparin 40 MG/0.4 ML Syringe SC (05:44)
[2023-03-06 06:00] VITALS: BP 139/67; PULSE 66; RESP 16; TEMP 36.8; O2SAT 96
[2023-03-06] MEDS: Aspirin E.C. 81 MG Tablet PO (08:38)
[2023-03-06] MEDS: Pantoprazole Sodium 40 MG Tablet PO (08:38)
[2023-03-06] MEDS: Clopidogrel Bisulfate 75 MG Tablet PO (08:38)
[2023-03-06] MEDS: Lisinopril 5 MG Tablet PO (08:38)
[2023-03-06] MEDS: amLODIPine 10 MG Tablet PO (08:39)
[2023-03-06 13:07] VITALS: BMI 32.5
--- NOTE | 2023-03-06 13:08 | CASEMGMT ---
Addendum entered by Priyanka Levy 03/06/23 14:05: Pt provided this worker completed JUSTICE aminata. SW faxed to [facility]. Original Note: Social Work IDT met with patient and dtr for Team meeting. Discussed patient's progress in PT/OT/SN. Confirmed pt's DC to dtr's house 03/07 with [employer] PT/OT scheduled. Dtr to transport. SW inquired about JUSTICE aminata and part B application progress. Pt stated she is making the phone calls to [employer] but was told she needed to wait until open enrollment to apply. However, she was instructed to contact the [facility] office, which pt will complete. Pt to complete JUSTICE application while dtr is present and return to this worker. MITZI educated to different cost effective mobile apps to for prescription coverage, i.e. GoodRX and SingleCare, and programs through [facility] pharmacy. did start pt on antianxiety medication and stressed importance of following up with mental health counselor to assist with managing anxiety to maintain blood pressure. pt expressed understanding. Pt appreciative of care team. Priyanka Levy, BRENTON KOENIGW
[2023-03-06 14:00] VITALS: BP 136/59; PULSE 68
--- NOTE | 2023-03-06 16:52 | PCM.PN.BLA ---
Progress Note Liliana was seen on team rounds today. Her daughter Mary was present in the room. Afebrile VSS Maintaining appropriate oxygen saturation on RA Oral intake is good Discussed with nursing - no problems that need addressed Reviewed the PT/OT/ST notes Medication list reviewed. Liliana denies lightheadedness, vertigo, CP, SOB at rest, SOB with exertion, cough, nausea, vomiting, abd pain, diarrhea, constipation, dysuria, calf pain and ankle swelling. Physical Exam Const alert, oriented x3 and no apparent distress General Appearance: cooperative Resp normal respiratory effort, normal air movement, no use of accessory muscles and clear to auscultation bilaterally Effort and Inspection: Negative for tachypneic Cardio regular rate, regular rhythm and no gallops Cardio Narrative: no ectopy GI normal to inspection, nondistended, normoactive bowel sounds, soft to palpation, non-tender and non-distended GI Narrative: no guarding with palpation Extremity Negative for no calf tenderness General Extremity: Negative for edema Skin General Skin Exam: no breakdown Rashes: no rashes Neuro CN's II-XII intact bilaterally and no sensory deficits noted Neuro Narrative: She is weak on the R side and she is R hand dominant. Fine motor coordination with the R hand is impaired and she has difficulty writing. she still has some dysequilibrium and feels safest with the walker at the time of DC. The strength in the RUE and the R leg has improved significantly from the time of admission. Still a little ataxic with the RUE but, not with the R leg. No visual loss. Thought process is normal. No extinction. Psych cooperative and affect normal Appearance: appropriate Attitude: other calm at times and anxious at others. Activity / Motor Behavior: appropriate eye contact Speech: normal speech Attention / Concentration: attention grossly intact Memory / Cognition: other short term memory is mildly impaired. Insight: insight good Assessment & Plan Assessment/Plan (1) Physical debility: (2) Acute CVA (cerebrovascular accident): (3) Ataxia due to acute cerebrovascular disease: (4) Disequilibrium: (5) Acute right-sided weakness: (6) Prediabetes: (7) Hypertension: (8) Obesity (BMI 35.0-39.9 without comorbidity): (9) Hyperlipidemia: (10) Multiple food allergies: (11) Allergic dermatitis: (12) Anxiety: PLAN: Plan 1. Plan discharge for tomorrow afternoon. 2. Start BuSpar 5 mg p.o. twice daily for anxiety. Discussed with Mary and with Liliana. 3. Will need follow up with PCP and neurology Visit Charges Inpatient E&M: 64180 Subs Hosp L2
--- NOTE | 2023-03-06 16:53 | PCM.DC ---
Discharge Instructions Diet Discharge Diet: - (Low fat, low salt and no concentrated carbs. ) Activity Discharge Activity: May Not Drive, May Shower and Use Walker (or a cane) Weight Bearing Status: Full weight bearing Keep extremity elevated above heart level: Right Arm and Right Leg Dressing / Incision Call your doctor if you observe: Fever of 101 or Higher, Inability to urinate, Inability to have a bowel movement, Shortness of breath, Dizziness, Fainting spells, Swelling in the ankles, Chest pain, Increased palpitations (irregular heartbeat), Calf discomfort and Uncontrolled pain Follow Up Care Please Follow Up With: [facility] PCP When: She will call for an appt when she picks a new PCP. Test Results: Test results from this visit will be discussed in further detail at your follow-up appointment, if applicable. Pending Tests Upon Discharge: none Discharge Plan Admission Admit Date/Time: 02/22/23 16:15 Primary Reason for Your Visit: Post stroke debility Attending Provider: Evelia Lincoln Primary Care Provider: Sylvia Physician,No Primary Instructions Patient Instructions: Journaling for Mental Health, Effects of a Stroke on the ..., Your Body's Response to Anxiety, Anxiety Disorders Tx, Hypertension Stroke Link, Discharge Instructions for Stroke Additional Instructions / Restrictions: 1. I am sad to see you go. I enjoy talking with you and all of us in therapy love your personality and stick to it attitude. I know that you will continue to improve and get back to your house. Living with a family of 7, iain if 5 of those people are children can be challenging. As we age we get more set in our ways and we generally have a certain way we do things. There will likely be an adjustment period where you and the others figure out what works best for all of you. BP is closely tied to emotions. Stress/anxiety can increase your BP significantly. Find yourself a quiet place, away from all the hustle and bustle that goes with having 5 children, and when you feel stressed GO THERE. Think about all the things that relax you.......sewing is definitely one of those things. These activities require focus on what you are doing and take focus away from what is making you anxious. There are many self videos on You tube for relaxation and guided imagery. They don't work for everybody but, they work well for many. I have given you some handouts to educate you about anxiety, what it does to your brain and body and how to treat it. 2. The top number of your BP is still a little high. I want to see how it will change when you are out of rehab before we change medications. Mary has a BP cuff and will be checking your BP a couple times a day at different times to establish a trend/baseline. If the top number is consistently over 150 for a few days call me.........until you have an appt with your new PCP. 3. I think you underestimate how much stress leaving rehab/safe place and going home to a very active household with 5 children will have on you. I am sending you home on a medication called Buspar. I started you on the lowest dose. You have to take it 2-3 times a day for it to work. You can not just take it when you feel anxious. It is NON-ADDICTIVE. After things settle down for you you will be able to get off this medication with no difficulty. 4. You are not diabetic but, your blood sugars are mildly elevated.....not enough to need medication. Some weight loss and watching your carb intake will likely prevent you from developing diabetes in the future. Exercise helps to decrease BP, lose weight, increase your HDL (good cholesterol) and decrease your BP. It also helps prevent memory loss. 5. You are ALLERGIC to Atorvastatin (also called Lipitor). You are able to tolerate a different statin called Pravastatin with no problem and this is what your are going home on. You will need to have your PCP order a Lipid panel and a liver panel in about 6 weeks to make sure we are adequately controlling the LDL (bad cholesterol). Statins can affect the liver and this is why we are checking a liver panel........I rarely see any significant change in the liver tests with statins. It is best to take the Pravastatin at bedtime......it works better that way to decrease the LDL. 6. Stroke treatment goals a. BP < 130/80 b. LDL < 70 c. If you are diabetic HGBA1C less than or equal to 7. Your HGBA1C is 6.1 currently. d. Take all medication as directed. If you feel that you are having an adverse reaction to a medication call you PCP to discuss.......or me until you get a PCP. e. Avoid second hand smoke. 7. I gave you enough of the Plavix (clopidogrel) to last a fe weeks. Take it until it is all gone and after that you will continue with just 1 baby Aspirin daily. 8. I am giving you a prescription for Famotidine (also called Pepcid). Since you are on 2 antiplatelet agents for the next 2 weeks and you will be under increased stress this will help prevent ulcers in your stomach. You have never had ulcers and you are not having nausea/vomiting or pain in the stomach SO if you want to try going without just do not fill the prescription. 8. I has been a pleasure meeting you and watching you get better. Please give me a call next week and let me know how you are doing. If you have any questions after you leave rehab please do not hesitate to call me. Office: [phone] Discharge Orders/Prescriptions Prescriptions: New buspirone 5 mg Tablet 5 mg PO BID Qty: 60 0RF pravastatin 40 mg Tablet 40 mg PO QHS Qty: 30 0RF metoprolol succinate 50 mg Tablet Extended Release 24 Hr 50 mg PO QHS Qty: 30 0RF diphenhydramine HCl [Banophen] 25 mg Capsule 25 mg PO Q6H PRN PRN (Reason: Itching) Qty: 1 0RF lisinopril 5 mg Tablet 5 mg PO DAILY Qty: 30 0RF famotidine [Pepcid] 20 mg tablet 20 mg PO BID Qty: 30 0RF Continued acetaminophen 325 mg Tablet 650 mg PO Q6H PRN PRN (Reason: Pain 1-10 Or Fever>100.7) Qty: 0 0RF aspirin 81 mg tablet,delayed release (DR/EC) 81 mg PO BREAKFAST clopidogrel [Plavix] 75 mg tablet 75 mg PO DAILY Qty: 14 0RF amlodipine 10 mg tablet 10 mg PO DAILY Qty: 30 0RF Discontinued melatonin 3 mg Tablet 3 mg PO QHS PRN PRN (Reason: Insomnia) Qty: 0 0RF alum-mag hydroxide-simeth [Mag-Al Plus Extra Strength] 400-400-40 mg/5 mL Suspension 30 ml PO Q6H PRN PRN (Reason: Gastric Burning) Qty: 0 0RF hydralazine 25 mg Tablet 25 mg PO Q6H PRN PRN (Reason: increased BP) pantoprazole [Protonix] 40 mg Tablet,Delayed Release (Dr/Ec) 40 mg PO DAILY enoxaparin [Lovenox] 40 mg/0.4 mL Syringe 40 mg SUBCUT DAILY metoprolol tartrate 25 mg Tablet 25 mg PO Q8H atorvastatin 80 mg tablet 80 mg PO QHS Referrals / Follow Up: [facility] [Other] (Office will call to make Primary Care Physician appointment after they get approval for you to be self pay until your Medicaid Insurance gets approved. ) Dwayne De Los Santos MD [Non-Staff] - 03/21/23 2:20 pm ($225 due at time of visit, unless insurance is approve prior ) Disposition Disposition (needs filled in before D/C Order can be placed): Home, Self Care
[2023-03-06 18:00] VITALS: BP 136/68; PULSE 69
[2023-03-06 19:50] VITALS: PULSE 68; RESP 16; O2SAT 96; BMI 32.5
[2023-03-06 20:10] VITALS: BP 148/66; PULSE 68
[2023-03-06] MEDS: Metoprolol(XL)Succ 50 MG Tablet PO (20:10)
[2023-03-06] MEDS: busPIRone 5 MG Tablet PO (20:10)
[2023-03-06] MEDS: Pravastatin 40 MG Tablet PO (20:10)
--- NOTE | 2023-03-07 02:34 | NURSING ---
Reviewed and agree with Tatiana ROOT, documentation and assessment charting.
[2023-03-07 06:00] VITALS: BP 145/65; PULSE 57; RESP 16; TEMP 36.4; O2SAT 97
[2023-03-07] MEDS: Enoxaparin 40 MG/0.4 ML Syringe SC (06:58)
[2023-03-07] MEDS: Aspirin E.C. 81 MG Tablet PO (08:01)
[2023-03-07] MEDS: Pantoprazole Sodium 40 MG Tablet PO (08:01)
[2023-03-07] MEDS: Lisinopril 5 MG Tablet PO (08:01)
[2023-03-07] MEDS: busPIRone 5 MG Tablet PO (08:01)
[2023-03-07] MEDS: Clopidogrel Bisulfate 75 MG Tablet PO (08:01)
[2023-03-07] MEDS: amLODIPine 10 MG Tablet PO (08:01)
--- NOTE | 2023-03-07 11:50 | DS.PCM_ITS ---
Providers Date of Admission: 02/22/23 Date of Discharge: 03/07/23 Primary Care Physician: No Primary Care Phys Reason For Visit: STROKE Diagnosis Discharge Diagnosis (1) Physical debility: Status: Acute Code(s): R53.81 - Other malaise (2) Acute CVA (cerebrovascular accident): Status: Acute Code(s): I63.9 - Cerebral infarction, unspecified Plan: L thalamic lacunar infarct. Discharged on dual antiplatelet agents for 2 more weeks, a statin and a 30 day event monitor. (3) Ataxia due to acute cerebrovascular disease: Status: Acute Code(s): I67.89 - Other cerebrovascular disease; R27.0 - Ataxia, unspecified (4) Disequilibrium: Status: Acute Code(s): R42 - Dizziness and giddiness (5) Acute right-sided weakness: Status: Acute Code(s): R53.1 - Weakness (6) Prediabetes: Status: Acute Code(s): R73.03 - Prediabetes Plan: HGBA1C is 6.1. Saw the septic cleaner while in rehab and instructed in a low fat, low salt, weight loss diet with no concentrated carbs. There is a FH of DM. (7) Hypertension: Status: Chronic Code(s): I10 - Essential (primary) hypertension Plan: Systolic is ranging for 130-140 at the time of DC. She was discharged on amlodipine 10 mg daily, metoprolol XL 50 mg at HS and lisinopril 5 mg daily. Her dtr will take Liliana's BP a few times a day and record the results. If the systolic continues to be greater than 130 would increase the Lisinopril to 10 mg daily or 5 mg BID. (8) Obesity (BMI 35.0-39.9 without comorbidity): Status: Chronic Code(s): E66.9 - Obesity, unspecified (9) Hyperlipidemia: Status: Chronic Code(s): E78.5 - Hyperlipidemia, unspecified Plan: She had hives with Lipitor and it was discontinued. A few days later she was started on Pravastatin and has been tolerating this medication with no adverse reactions. Will need a Lipid panel and a liver panel in 6 weeks. LDL at the time of the stroke was 150 on no medication. (10) Multiple food allergies: Status: Acute Code(s): Z91.018 - Allergy to other foods (11) Allergic dermatitis: Status: Acute Code(s): L23.9 - Allergic contact dermatitis, unspecified cause Plan: Hives with Atorvastatin. (12) Anxiety: Status: Acute Code(s): F41.9 - Anxiety disorder, unspecified Plan: BP increase significantly when she is anxious. She is going home with her dtr who has 5 children. Liliana is used to living alone. It will be an adjustment for everyone. She was started on Buspar prior to DC and so far has had no adverse side effects. Plan 1. DC home with dtr Mary 2. Outpatient PT/OT at [facility] 3. She will schedule an appointment with a primary care physician at the [facility]. 4. An appointment has been made for her to see Dr. Dwayne De Los Santos from neurology. 5. Will need a lipid panel and liver panel in 6 weeks. Medications at Discharge Home Medications acetaminophen 325 mg tablet 650 mg PO Q6H PRN PRN Pain 1-10 Or Fever>100.7 #0 tabs 02/22/23 aspirin 81 mg tablet,delayed release 81 mg PO BREAKFAST heart health 02/22/23 amlodipine 10 mg tablet 10 mg PO DAILY BP #30 tabs 03/06/23 buspirone 5 mg tablet 5 mg PO BID #60 tabs 03/06/23 clopidogrel 75 mg tablet (Plavix) 75 mg PO DAILY Check with primary doctor #14 tabs 03/06/23 diphenhydramine HCl 25 mg capsule (Banophen) 25 mg PO Q6H PRN PRN Itching #1 cap 03/06/23 famotidine 20 mg tablet (Pepcid) 20 mg PO BID #30 tabs 03/06/23 lisinopril 5 mg tablet 5 mg PO DAILY #30 tabs 03/06/23 metoprolol succinate 50 mg tablet,extended release 24 hr 50 mg PO QHS #30 tabs 03/06/23 pravastatin 40 mg tablet 40 mg PO QHS #30 tabs 03/06/23 Hospital Course Operations None Procedures None Summary of Care Provided Minutes Spent on Discharge: 45 Hospital Course: CRISTI LAZCANO, is a 72 YO F with a PMH of obesity.? She was taking no p rescription medications at the time she presented to the [facility] ED with stroke sx.? Her PCP retired and she had not been seen by a physician for a long time. ? She presented to the emergency department at [facility] in the a.m. on 02/21/2023 complaining of losing her balance and weakness on the R side of her body that was present when she awoke.?When she went to bed the previous night s he was in her normal state of health.? A stat noncontrast CT brain was negative for any acute findings.? CTA of the head and neck showed mild calcific plaque formation at the origins of both the right and left internal carotid arteries causing less than 50% narrowing.? The blood pressure was markedly elevated at 215/86 and she had no history of hypertension.? The heart rate was 74.? NIHSS was 3 in the emergency department for drift with the right arm/right leg and mild ataxia of the right hand.? Lab was unremarkable with the exception of an elevated random blood sugar of 123. There is a FH of DM II.? Consult was obtained with teleneurology and she was outside the time window for administrati on of a thrombolytic.? There was no LVO on the CTA and labs recommended by the teleneurologist were all ordered by the hospitalist. ? She was admitted to the hospitalist service and MRI and echocardiogram were ordered.? She was started on an antiplatelet agent and a statin.? Lab the following morning showed an elevated glucose at 118 and the hemoglobin A1c was elevated at 6.1.? Magnesium and phosphorus were within normal limits.? Total cholesterol was 216 with an LDL of 150 and an HDL of 44.? MRI showed a left lateral thalamic acute 5 mm lacunar infarct with no evidence of large territorial ischemia.? There was no evidence of intracerebral bleed or mass.? TTE showed a normal size left ventricle with an estimated ejection fraction of 70% and normal diastology for age.? The right ventricle was also normal in size with normal systolic function.? There was no atrial enlargement and the bubble contrast study was negative for a right to left interatrial shunt.? There was no significant valvular heart disease.? There was no left ventricular hypertrophy.? She seen by PT/OT/ST and recommendation for acute rehab at discharge was made.? She was transferred to the acute inpatient rehab unit at [facility] on 02/22/2023 for 3 hours of therapy daily to restore function/independence at or near her prior level.? BP upon arrival on rehab was 197/85. She was taking amlodipine 10 mg daily and was on low-dose hydralazine as needed for elevated blood pressures. Metoprolol 25 mg every 8 hours was added to her drug regimen and we increased the dose of hydralazine and made it every 4 hours as needed for systolic greater than 170 and diastolic greater than 90. BP gradually came under better control and she was transitioned from Metoprolol 25 Q 8H to Metoprolol XL 50 mg at HS. BP was better but, still above goal of < 130/80. HR was in the 50's to mid 60's and I did not think it prudent to increase the Metoprolol so we added Lisinopril 5 mg daily. The diastolic is now always < 80 but, the systolic has been from 136-148. It has only been been less than 5 days since the Lisinopril was added and I am sending her home on amlodipine 10 mg daily, metoprolol XL 50 mg at at bedtime and lisinopril 5 mg every morning. Her daughter will check Liliana's blood pressure a few times a day after they get home from rehab and if the systolic is consistently > 150 they will call me and likely will increase the Lisinopril dose. Liliana has many food allergies and had been getting hives at night for a few days prior to rehab. The only med she was taking at night was Atorvastatin. Atorvastatin was discontinued and hives at night resolved. A few days after discontinuing atorvastatin she was started on pravastatin 40 mg nightly. She had no adverse reactions to pravastatin including hives. She is being discharged on pravastatin 40 mg nightly and should have follow-up lipid profile and lipid panel in [address] did not pick Liliana up for therapy and so her 3 hours a day was divided between PT and OT. Liliana did very well in rehab. Prior to discharge she is independent with eating and supervision/set up for grooming. She is also supervision/set up for bathing and upper body dressing and requires only minimal assistance with lower body dressing. She is supervision/set up for toilet transfer, toileting and tub/shower transfer. She has ambulated up to 163 feet with a wheeled walker at close standby assist. She is able to do 14 sit to stands in 30 seconds using her upper extremities. She is able to ascend/descend three 4 inch steps at close standby assist with 2 handrails and two 7 inch steps with 2 handrails at contact-guard assist. Liliana will be going home with her daughter, Mary, at [place]. Mary has 5 children and a and Liliana is used to living alone and doing things her way. Liliana does get anxious and when she does her BP increases significantly. Prior to [place] she had 2 doses of Buspar 5 mg BID and she has had no adverse reactions. She was discharged on Buspar 5 mg BID and she will call me in 1 week and let me know how she is doing with anxiety. Prior to discharge her hemoglobin is stable at 13.2. Sodium is within normal limits and her potassium is 3.9. The BUN is 24 with a creatinine of 0.84 and I think the elevation in the BUN/CREAT ratio is due to a lot of Protein in the diet. She is well hydrated and drinks a good amount of water daily. Hemoccult stool is negative. Magnesium is good at 2. Clotilde was discharged home with Mary on 03/07/2023. She will call and get an appointment with a [facility] PCP for follow-up. Until she has her first appointment she can continue to call me with any issues. An appointment was made for her to follow-up with Dr. Dwayne De Los Santos from [facility]. She was given a 30-day event monitor requisition at discharge and the cardiovascular department will mail this to her as an outpatient. At completion of the 30-day event monitor she will follow-up with [facility]. Liliana had CTA of the neck while in the hospital and it showed less than 50% stenosis in the bilateral carotid arteries. She has loud bruits in the neck BL and she was given a requisition to obtain a carotid US as an OP. The 30 day event monitor and the carotid US can be done after she gets Medicare Part B. She is going to follow up at [facility] for additional PT/OT after discharge. Physical Exam Const alert, oriented x3 and no apparent distress General Appearance: cooperative HEENT normocephalic, head/scalp atraumatic and moist oral mucous membranes Eyes PERRL and EOMs intact bilaterally Neck no lymphadenopathy, supple and no JVD General: trachea midline Resp normal respiratory effort, normal air movement, no use of accessory muscles and clear to auscultation bilaterally Effort and Inspection: Negative for tachypneic or labored Cardio regular rate, regular rhythm, S1 normal heart sound, S2 normal heart sound, no rub and no gallops Cardio Narrative: no ectopy Rate: Negative for bradycardia or tachycardic Rhythm: Negative for abnormal rhythm GI normal to inspection, nondistended, normoactive bowel sounds, soft to palpation, non-tender and non-distended GI Narrative: no guarding with palpation Extremity normal capillary refill; Negative for no calf tenderness General Extremity: Negative for clubbing or edema Skin no wounds and no jaundice General Skin Exam: no breakdown Rashes: no rashes Neuro CN's II-XII intact bilaterally and no sensory deficits noted Neuro Narrative: She is weak on the R side and she is R hand dominant. Fine motor coordination with the R hand is impaired and she has difficulty writing. she still has some dysequilibrium and feels safest with the walker at the time of DC. The strength in the RUE and the R leg has improved significantly from the time of admission. Still a little ataxic with the RUE but, not with the R leg. No visual loss. Thought process is normal. No extinction. Psych mental status grossly normal, thought process normal and cooperative; Negative for denies hallucinations or denies suicidal ideation Psych Narrative: She is not depressed but, she does get anxious at times and her BP increases. She is going home with Mary and there will be 5 children in the house......the youngest is 4. Liliana has been thinking of things she can do to help herself to clm down.......sewing does this for her and her dtr will citrus picker some os Liliana's quilting things for her to work on at [employer]. She also does some guided imagery at night prior to going to sleep and she will continue with this. Appearance: appropriate Attitude: other calm at times and anxious at others. Activity / Motor Behavior: appropriate eye contact; Negative for psychomotor agitation, fidgetting, disorganized or restless Speech: normal speech Mood & Affect: anxious Thought Process: normal thought process Thought Content: No suicidality and No homicidality Attention / Concentration: attention grossly intact Memory / Cognition: other short term memory is mildly impaired. Insight: insight good Weight / BMI Weight Weight: 166 lb 14.239 oz Body Mass Index (BMI) 32.5 ABG / Lab / Microbiology Data Result Diagrams: 03/03/23 05:38 03/03/23 05:38 Microbiology: Microbiology 03/04/23 08:13 Stool Stool Occult Blood (MAKSIM) - Final Indicators for Scoring Admitted with or Primary Diagnosis of CVA/Stroke: Yes Hx of CVA/Stroke: Yes Modified Cristian Score MRS Score at time of Evaluation: 2-Slight disability (She was a 4 at admission to rehab.) NIHSS NIHSS 1a. Level of Consciousness: Alert; keenly responsive 1b. LOC Questions: Answers BOTH questions correctly. 1c. LOC Commands: Performs both tasks correctly. 2. Best Gaze: Normal 3. Visual: No visual loss 4. Facial Palsy: Normal symmetrical movements 5a. Left Arm: No drift; arm holds 90 (or 45) degrees for full 10 seconds 5b. Right Arm: Drift; arm drifts downward but doesn?t hit the bed (It only drifts down about 3-4 inches. ) 6a. Left Leg: No drift; leg holds 30-degree position for full 5 seconds 6b. Right Leg: No drift; leg holds 30-degree position for full 5 seconds 7. Limb Ataxia: Present in 1 limb (Still with minimal ataxia with the R arm) 8. Sensory: Normal; no sensory loss 9. Best Language: No aphasia; normal 10. Dysarthria: Normal 11. Extinction and Inattention: No abnormality Total: 2 (NIH was 3 at admission to rehab. ) Stroke Questions Stroke Team Activated: No D/C Instructions Discharge Diet: - (Low fat, low salt and no concentrated carbs. ) Weight Bearing Status: Full weight bearing Keep extremity elevated above heart level: Right Arm and Right Leg Call your doctor if you observe: Fever of 101 or Higher, Inability to urinate, Inability to have a bowel movement, Shortness of breath, Dizziness, Fainting spells, Swelling in the ankles, Chest pain, Increased palpitations (irregular heartbeat), Calf discomfort and Uncontrolled pain Pending Tests Upon Discharge: none Please Follow Up With: [facility] PCP When: She will call for an appt when she picks a new PCP. Meaningful Use Info Meaningful Use Diagnoses (Choose all that apply): Ischemic CVA CVA Therapy Assessed for PT,OT and/or ST?: Yes Ischemic Stroke Antithrombotic order at d/c?: Yes Dx of Atrial fib/flutter?: No Anticoagulant at discharge?: No Reason anticoagulant not ordered: Treatment not Indicated Statins at discharge?: Yes Primary Dx Acute Ischemic CVA?: Yes IV thrombolytic ordered during stay?: No Reason IV thrombolytic not ordered: Treatment not Indicated Discharge Plan Admission Admit Date/Time: 02/22/23 16:15 Primary Reason for Your Visit: Post stroke debility Attending Provider: Evelia Lincoln Primary Care Provider: Care Physician,No Primary Instructions Patient Instructions: Journaling for Mental Health, Effects of a Stroke on the ..., Your Body's Response to Anxiety, Anxiety Disorders Tx, Hypertension Stroke Link, Discharge Instructions for Stroke Additional Instructions / Restrictions: 1. I am sad to see you go. I enjoy talking with you and all of us in therapy love your personality and stick to it attitude. I know that you will continue to improve and get back to your house. Living with a family of 7, iain if 5 of those people are children can be challenging. As we age we get more set in our ways and we generally have a certain way we do things. There will likely be an adjustment period where you and the others figure out what works best for all of you. BP is closely tied to emotions. Stress/anxiety can increase your BP significantly. Find yourself a quiet place, away from all the hustle and bustle that goes with having 5 children, and when you feel stressed GO THERE. Think about all the things that relax you.......sewing is definitely one of those things. These activities require focus on what you are doing and take focus emir y from what is making you anxious. There are many self videos on You tube for relaxation and guided imagery. They don't work for everybody but, they work well for many. I have given you some handouts to educate you about anxiety, what it does to your brain and body and how to treat it. 2. The top number of your BP is still a little high. I want to see how it will change when you are out of rehab before we change medications. Mary has a BP cuff and will be checking your BP a couple times a day at different times to establish a trend/baseline. If the top number is consistently over 150 for a few days call me.........until you have an appt with your new PCP. 3. I think you underestimate how much stress leaving rehab/safe place and going home to a very active household with 5 children will have on you. I am sending you home on a medication called Buspar. I started you on the lowest dose. You have to take it 2-3 times a day for it to work. You can not just take it when you feel anxious. It is NON-ADDICTIVE. After things settle down for you you will be able to get off this medication with no difficulty. 4. You are not diabetic but, your blood sugars are mildly elevated.....not enough to need medication. Some weight loss and watching your carb intake will likely prevent you from developing diabetes in the future. Exercise helps to decrease BP, lose weight, increase your HDL (good cholesterol) and decrease your BP. It also helps prevent memory loss. 5. You are ALLERGIC to Atorvastatin (also called Lipitor). You are able to tolerate a different statin called Pravastatin with no problem and this is what your are going home on. You will need to have your PCP order a Lipid panel and a liver panel in about 6 weeks to make sure we are adequately controlling the LDL (bad cholesterol). Statins can affect the liver and this is why we are checking a liver panel........I rarely see any significant change in the liver tests with statins. It is best to take the Pravastatin at bedtime......it works better that way to decrease the LDL. 6. Stroke treatment goals a. BP < 130/80 b. LDL < 70 c. If you are diabetic HGBA1C less than or equal to 7. Your HGBA1C is 6.1 currently. d. Take all medication as directed. If you feel that you are having an adverse reaction to a medication call you PCP to discuss.......or me until you get a PCP. e. Avoid second hand smoke. 7. I gave you enough of the Plavix (clopidogrel) to last a fe weeks. Take it until it is all gone and after that you will continue with just 1 baby Aspirin daily. 8. I am giving you a prescription for Famotidine (also called Pepcid). Since you are on 2 antiplatelet agents for the next 2 weeks and you will be under increased stress this will help prevent ulcers in your stomach. You have never had ulcers and you are not having nausea/vomiting or pain in the stomach SO if you want to try going without just do not fill the prescription. 8. I has been a pleasure meeting you and watching you get better. Please give me a call next week and let me know how you are doing. If you have any questions after you leave rehab please do not hesitate to call me. Office: [phone] Discharge Orders/Prescriptions Prescriptions: New buspirone 5 mg Tablet 5 mg PO BID Qty: 60 0RF pravastatin 40 mg Tablet 40 mg PO QHS Qty: 30 0RF metoprolol succinate 50 mg Tablet Extended Release 24 Hr 50 mg PO QHS Qty: 30 0RF diphenhydramine HCl [Banophen] 25 mg Capsule 25 mg PO Q6H PRN PRN (Reason: Itching) Qty: 1 0RF lisinopril 5 mg Tablet 5 mg PO DAILY Qty: 30 0RF famotidine [Pepcid] 20 mg tablet 20 mg PO BID Qty: 30 0RF Continued acetaminophen 325 mg Tablet 650 mg PO Q6H PRN PRN (Reason: Pain 1-10 Or Fever>100.7) Qty: 0 0RF aspirin 81 mg tablet,delayed release (DR/EC) 81 mg PO BREAKFAST clopidogrel [Plavix] 75 mg tablet 75 mg PO DAILY Qty: 14 0RF amlodipine 10 mg tablet 10 mg PO DAILY Qty: 30 0RF Discontinued melatonin 3 mg Tablet 3 mg PO QHS PRN PRN (Reason: Insomnia) Qty: 0 0RF alum-mag hydroxide-simeth [Mag-Al Plus Extra Strength] 400-400-40 mg/5 mL Suspension 30 ml PO Q6H PRN PRN (Reason: Gastric Burning) Qty: 0 0RF hydralazine 25 mg Tablet 25 mg PO Q6H PRN PRN (Reason: increased BP) pantoprazole [Protonix] 40 mg Tablet,Delayed Release (Dr/Ec) 40 mg PO DAILY enoxaparin [Lovenox] 40 mg/0.4 mL Syringe 40 mg SUBCUT DAILY metoprolol tartrate 25 mg Tablet 25 mg PO Q8H atorvastatin 80 mg tablet 80 mg PO QHS Other Ambulatory Orders: 30 Day Event Recorder Preventi (Routine) Timeframe: 1 Day Facility: [facility] - Location: Cardiovascular Services Ordered By: Dr. Evelia Lincoln Referrals / Follow Up: [facility] [Other] (Office will call to make Primary Care Physician appointment after they get approval for you to be self pay until your Medicaid Insurance gets approved. ) 30 Day Event Monitor [Other] (A 30 Day Event Monitor will be mailed to your house with instructions on how to apply. You will follow up with [facility]. ) Dwayne De Los Santos MD [Non-Staff] - 03/21/23 2:20 pm ($225 due at time of visit, unless insurance is approve prior ) Disposition Disposition (needs filled in before D/C Order can be placed): Home, Self Care Charges/Coding Visit Charges Inpatient E&M: 03303 Disch Hosp >30min
[2023-03-07 16:42] VITALS: BMI 32.5
[2023-03-07 16:48] VITALS: BP 136/60; PULSE 66; RESP 17; TEMP 36.6; O2SAT 97
--- NOTE | 2023-03-07 16:50 | NURSING ---
discharged home with family. discharge instructions, medications, and appointments reviewed with pt and daughter. denies questions or concerns
== END 2023-03-07 16:51 | disposition home or self-care (01) | DRG 57 ==
PROVIDERS: Admitting Provider Internal Medicine; Referring Provider Internal Medicine; Visit Provider Internal Medicine
DX: I69.351 Hemiplegia and hemiparesis following cerebral infarction affecting right dominant side (principal); E66.9 Obesity, unspecified; I10 Essential (primary) hypertension; E78.5 Hyperlipidemia, unspecified; I69.393 Ataxia following cerebral infarction; L23.9 Allergic contact dermatitis, unspecified cause; F41.9 Anxiety disorder, unspecified; Z79.01 Long term (current) use of anticoagulants; Z68.39 Body mass index [BMI] 39.0-39.9, adult; Z79.899 Other long term (current) drug therapy; Z79.02 Long term (current) use of antithrombotics/antiplatelets; R73.03 Prediabetes
CPT/HCPCS: 36415; 80048; 82274; 82962; 83735; 85014; 85018; 92523; 97110; 97112; 97116; 97162; 97166; 97530; 97535; 97802; 97803; A4216

== ENCOUNTER 2024-08-16 11:16 | Emergency (ER) | payer MEDICARE, SELFPAY ==
[2024-08-16] VITALS (14 sets, daily range): BP systolic 130–157; BP diastolic 66–91; PULSE 84–102; RESP 16–20; TEMP 36.7–37.6; O2SAT 88–98; BMI 31.6
--- NOTE | 2024-08-16 11:28 | EX.ED.DYSGE1 ---
HPI History of Present Illness Chief Complaint: Complaint [facility] Medical History Angina pectoris, unspecified Anxiety Essential hypertension History of major depression History of melanoma Hyperlipidemia Obesity (BMI 35.0-39.9 without comorbidity) Temporomandibular joint disorder Home Medications ?Medication ?Instructions ?Recorded ?Last Taken ?Type acetaminophen 325 mg tablet 650 mg (2 x 325 mg) PO Q6H PRN PRN 02/22/23 Unknown Rx Pain 1-10 Or Fever>100.7 #0 tabs aspirin 81 mg tablet,delayed 81 mg PO BREAKFAST heart health 02/22/23 Unknown History release amlodipine 10 mg tablet 10 mg PO DAILY BP #30 tabs 03/06/23 Unknown Rx buspirone 5 mg tablet 5 mg PO BID #60 tabs 03/06/23 Unknown Rx clopidogrel 75 mg tablet (Plavix) 75 mg PO DAILY Check with primary 03/06/23 Unknown Rx doctor #14 tabs diphenhydramine HCl 25 mg capsule 25 mg PO Q6H PRN PRN Itching #1 cap 03/06/23 Unknown Rx (Banophen) famotidine 20 mg tablet (Pepcid) 20 mg PO BID #30 tabs 03/06/23 Unknown Rx lisinopril 5 mg tablet 5 mg PO DAILY #30 tabs 03/06/23 Unknown Rx metoprolol succinate 50 mg 50 mg PO QHS #30 tabs 03/06/23 Unknown Rx tablet,extended release 24 hr pravastatin 40 mg tablet 40 mg PO QHS #30 tabs 03/06/23 Unknown Rx Allergy/AdvReac Type Severity Reaction Status Date / Time atorvastatin (From Lipitor) Allergy Hives Verified 03/13/23 09:09 citric acid Allergy Hives Verified 03/13/23 09:09 Food Allergies: Uncoded Allergy Hives Verified 03/13/23 09:09 rice Allergy Hives Verified 03/13/23 09:09 wheat Allergy Hives Verified 03/13/23 09:09 Family History (Updated 03/13/23 @ 09:26 by Ruben Tan) Brother Heart disease Brother Heart disease Mother Diabetes Cancer Father Cancer Sister Cancer Heart disease Surgical History History of appendectomy Hx of cardiac cath Social History adopted: No household members: none housing: house number of children: 1 current occupational status: employed 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 pets and animals: No leisure activities: clubs and other Smoking Status: Never smoker alcohol intake: current alcohol intake frequency: holidays/special occasions only substance use type: does not use diet: other EXAM Physical Exam Const Vital Signs: 08/16/24 11:17 Temperature 99.6 F H Temperature Source Oral Pulse Rate 102 H Respiratory Rate 19 H Blood Pressure 154/82 H Blood Pressure Mean 106 Pulse Ox 96 Oxygen Delivery Method Room Air Discharge Plan Triage Chief Complaint: Complaint ED Provider: Yuniel Garcia Dx/Rx/DC Orders Prescriptions: No Action acetaminophen 325 mg Tablet 650 mg PO Q6H PRN PRN (Reason: Pain 1-10 Or Fever>100.7) Qty: 0 0RF aspirin 81 mg tablet,delayed release (DR/EC) 81 mg PO BREAKFAST buspirone 5 mg Tablet 5 mg PO BID Qty: 60 0RF pravastatin 40 mg Tablet 40 mg PO QHS Qty: 30 0RF metoprolol succinate 50 mg Tablet Extended Release 24 Hr 50 mg PO QHS Qty: 30 0RF diphenhydramine HCl [Banophen] 25 mg Capsule 25 mg PO Q6H PRN PRN (Reason: Itching) Qty: 1 0RF lisinopril 5 mg Tablet 5 mg PO DAILY Qty: 30 0RF famotidine [Pepcid] 20 mg tablet 20 mg PO BID Qty: 30 0RF clopidogrel [Plavix] 75 mg tablet 75 mg PO DAILY Qty: 14 0RF amlodipine 10 mg tablet 10 mg PO DAILY Qty: 30 0RF Primary Care Provider: Care Physician,No Primary Referrals: Care Physician,No Primary [Primary Care Provider] - Print Language: French
--- NOTE | 2024-08-16 11:30 | ED.RN ---
placed on monitor. initall sinus tachycardia, sudden change svt, pt pale, woozy, dizzy. lasted about 20 seconds pt converted back to sinus tachycardia.
--- NOTE | 2024-08-16 11:41 | EKG12_ITS ---
Test Reason : N/V Blood Pressure : / mmHG Vent. Rate : 197 BPM Atrial Rate : 178 BPM P-R Int : 094 ms QRS Dur : 074 ms QT Int : 272 ms P-R-T Axes : 049 063 193 degrees QTc Int : 492 ms Critical Test Result: High HR Atrial Tachycardia with degeneration to Aberrancy Cannot exclude VTach Undetermined rhythm ST & T wave abnormality, consider inferolateral ischemia Abnormal ECG Confirmed by GUSTABO DEVI, BROCK ([id number]), make up editor ADRIAN COVINGTON ([id number]) on 08/20/2024 1:59:54 PM Referred By: Confirmed By:BROCK MONTEJO MD
[2024-08-16] MEDS: 0.9% Normal Saline (1000mL) 1,000 ML 999 ML IV (11:45)
--- NOTE | 2024-08-16 11:45 | EKG12_ITS ---
Test Reason : N/V Blood Pressure : / mmHG Vent. Rate : 106 BPM Atrial Rate : 106 BPM P-R Int : 134 ms QRS Dur : 082 ms QT Int : 336 ms P-R-T Axes : 047 061 062 degrees QTc Int : 446 ms Sinus tachycardia Nonspecific ST abnormality Abnormal ECG Confirmed by GUSTABO DEVI, BROCK ([id number]), editor newspaper REFUGIO HSIEH ([id number]) on 08/21/2024 9:06:58 AM Referred By: BB Confirmed By:BROCK MONTEJO MD
--- NOTE | 2024-08-16 12:03 | EDS_ITS ---
HPI History of Present Illness Chief Complaint: Palpitations Informant: patient and EMS Narrative Narrative: 73-year-old female called EMS this morning because she felt she was going to pass out and very weak. She states she felt okay yesterday, she went to the [facility] couple days ago for a routine appointment had some blood work and urinalysis and the urine looked infected and she was put on nitrofurantoin which is the only new medication she is taking for the last couple days. Other than that she has a history of stroke, she has been on aspirin, blood pressure medication ever since then, she was on no medications prior to that. She denies any chest discomfort or dyspnea today, she felt nauseated but no vomiting no abdominal pain. She denies having any urinary symptoms in the last week. She denies having syncope. [facility] Medical History History of melanoma Essential hypertension Temporomandibular joint disorder Angina pectoris, unspecified Anxiety Multiple food allergies History of major depression Hyperlipidemia Prediabetes Obesity (BMI 35.0-39.9 without comorbidity) Hypertension Home Medications ?Medication ?Instructions ?Recorded ?Last Taken ?Type acetaminophen 325 mg tablet 650 mg (2 x 325 mg) PO Q6H PRN PRN 02/22/23 Unknown Rx Pain 1-10 Or Fever>100.7 #0 tabs aspirin 81 mg tablet,delayed 81 mg PO BREAKFAST heart health 02/22/23 Unknown History release amlodipine 10 mg tablet 10 mg PO DAILY BP #30 tabs 03/06/23 Unknown Rx buspirone 5 mg tablet 5 mg PO BID #60 tabs 03/06/23 Unknown Rx clopidogrel 75 mg tablet (Plavix) 75 mg PO DAILY Check with primary 03/06/23 Unknown Rx doctor #14 tabs diphenhydramine HCl 25 mg capsule 25 mg PO Q6H PRN PRN Itching #1 cap 03/06/23 Unknown Rx (Banophen) famotidine 20 mg tablet (Pepcid) 20 mg PO BID #30 tabs 03/06/23 Unknown Rx lisinopril 5 mg tablet 5 mg PO DAILY #30 tabs 03/06/23 Unknown Rx metoprolol succinate 50 mg 50 mg PO QHS #30 tabs 03/06/23 Unknown Rx tablet,extended release 24 hr pravastatin 40 mg tablet 40 mg PO QHS #30 tabs 03/06/23 Unknown Rx Allergy/AdvReac Type Severity Reaction Status Date / Time atorvastatin (From Lipitor) Allergy Hives Verified 03/13/23 09:09 citric acid Allergy Hives Verified 03/13/23 09:09 Food Allergies: Uncoded Allergy Hives Verified 03/13/23 09:09 rice Allergy Hives Verified 03/13/23 09:09 wheat Allergy Hives Verified 03/13/23 09:09 Family History (Updated 03/13/23 @ 09:26 by Ruben Tan) Brother Heart disease Brother Heart disease Mother Diabetes Cancer Father Cancer Sister Cancer Heart disease Surgical History History of appendectomy Hx of cardiac cath Social History adopted: No household members: none housing: house number of children: 1 current occupational status: employed 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 pets and animals: No leisure activities: clubs and other Smoking Status: Never smoker alcohol intake: current alcohol intake frequency: holidays/special occasions only substance use type: does not use diet: other ROS ROS ED Constitutional Constitutional ED: Reports fatigue; Denies chills or fever(s) Eyes Eyes: Denies change in vision or diplopia ENT ENT ED: Denies rhinorrhea or sore throat Cardiovascular Cardiovascular: Reports lightheadedness; Denies chest pain, leg edema or syncope Respiratory/Chest Respiratory/Chest: Denies cough or dyspnea Gastrointestinal Gastrointestinal: Reports nausea; Denies abdominal pain, diarrhea or vomiting Genitourinary Genitourinary ED: Denies dysuria or hematuria Musculoskeletal Musculoskeletal: Denies back pain or neck pain Integumentary Denies abscess or rash Neurologic Neurologic: Denies headache(s), paresthesias or weakness Psychiatric Psychiatric: Denies anxiety or suicidal thoughts EXAM Physical Exam Const Vital Signs: 08/16/24 11:17 08/16/24 11:24 08/16/24 11:28 Temperature 99.6 F H 99.6 F H Temperature Source Oral Oral Pulse Rate 102 H 99 Respiratory Rate 19 H 19 H Respiratory Pattern Normal Blood Pressure 154/82 H 138/74 H Blood Pressure Mean 106 95 Pulse Ox 96 96 Oxygen Delivery Method Room Air Room Air 08/16/24 11:41 09/27/24 12:29 Temperature Temperature Source Pulse Rate 97 Respiratory Rate 16 Respiratory Pattern Blood Pressure 144/91 H Blood Pressure Mean 108 Pulse Ox 98 Oxygen Delivery Method Room Air Room Air Positive well nourished and well developed General Appearance ED: well developed and NAD HEENT Reports moist mucous membranes normocephalic and atraumatic Eyes PERRL and EOMs intact bilaterally Neck full ROM and supple Resp normal respiratory effort and clear to auscultation bilaterally Cardio regular rate, regular rhythm and no murmurs GI non-tender and non-distended Auscultation: normoactive bowel sounds Palpation: soft Back/Spine no CVA tenderness General Back: other FROM Extremity normal to inspection General Extremety ED: Negative for edema, pulses abnormal or tenderness General Extremity: Negative for edema or pulses abnormal Neuro oriented x3, CN's II-XII intact bilaterally and no sensory deficits noted Sensorium / Orientation: awake and alert Motor Exam: strength 5/5 throughout Skin no rashes or lesions noted and no wounds MDM MDM MDM Narrative Medical decision making narrative: Prior to seeing the patient she had an episode of tachycardia which reproduced her prehospital symptoms. Her heart rate went up to 180, lasted for a minute or less and then resolved by the time I got to the room her heart rate was in the low 100s and she was feeling better. This recurred and we were able to capture on EKG, it lasted 1 or 2 minutes and again self-resolved the patient did not lose consciousness or have any chest discomfort but she felt like she was going to pass out. It is consistent with a narrow complex [place] beats she was having but irregular and fast consistent with A-fib, followed by transition to what looks like ventricular tachycardia for approximately 13-15 beats. Discussed with cardiology who came and saw the patient and the EKGs in the ED and agrees with starting her on amiodarone infusion after a bolus of 150 mg for what appears to be paroxysmal ventricular tachycardia and possibly A-fib. Will follow in the PCU for more evaluation/diagnostics and treatment. She does have a slight anion gap acidosis. Still awaiting urinalysis/urine. 1 view chest x- ray shows no sign of pneumonia. She does have a leukocytosis that is nonspecific at this time, no obvious infection clinically. I am going to add a lactate and blood cultures. Differential also includes supraventricular etiology with aberrancy but the QRS deflection suddenly changes in the EKG suggesting ventricular origin. Lab Data Attestation: I reviewed the patient's lab results. Labs: Laboratory Results - last 24 hr 08/16/24 11:30 WBC 14.7 H RBC 4.32 Hgb 12.6 Hct 36.7 L MCV 85.0 MCH 29.2 MCHC 34.3 RDW Std Deviation 37.0 RDW Coeff of Stacy 12.0 Plt Count 268 MPV 11.1 Immature Gran % (Auto) 0.600 Neut % (Auto) 82.2 H Lymph % (Auto) 8.6 L Humphreys % (Auto) 8.5 Eos % (Auto) 0.0 Baso % (Auto) 0.1 Absolute Neuts (auto) 12.1 H Absolute Lymphs (auto) 1.27 Nucleated RBC % 0 Sodium 132 L Potassium 3.1 L Chloride 100 Carbon Dioxide 16.0 L Anion Gap 16 H BUN 15 Creatinine 1.16 H Estim Creat Clear Calc 39.82 Est GFR (MDRD) Af Amer 59 L Est GFR (MDRD) Non-Af 49 L BUN/Creatinine Ratio 12.9 Glucose 142 H Calcium 8.9 Troponin I High Sens 14 Radiography Diagnostic Testing: Clinical Impression(s) from Imaging Studies Chest X-Ray 08/16/24 12:10 IMPRESSION: No acute abnormality is seen. Electronically Signed: Alvin Llanos MD at 12:21 EDT , Rhythm Strip Rhythm Strip: Sinus Rhythm Rate: 89 Ectopy: None EKG Initial EKG: Attestation: I personally reviewed and interpreted this EKG as follows: Comments: rapid afib narrow QRS, then VT w/ wide QRS Follow-up EKG: Attestation: I personally reviewed and interpreted this EKG as follows: Interpretation: Sinus Rhythm and No Acute Injury Pattern Comments: after spontaneous cardioversion Management Discussion w/another healthcare provider: Hospitalist and Tie Sawyer (Cardiology Sid) Critical Care Time Critical Care Time: Yes Critical care time (excluding procedures): 30-74 minutes (36 min), Including time spent:, Discussing w/Patient &/or Family/[employer] High [employer] Teacher, Discussing w/Consultants, Arranging Admission or Transfer and Performing Direct Patient Care at Bedside Discharge Plan Dx/Rx/DC Orders Clinical Impression: Nonsustained paroxysmal ventricular tachycardia, Near syncope, Hypokalemia Disposition Disposition: Acute Care Hospital [facility]
--- NOTE | 2024-08-16 12:10 | RAD_ITS ---
STUDY: X-RAY CHEST REASON FOR EXAM: Female, 73 years old. Chest pain TECHNIQUE: Single AP portable view of the chest. COMPARISON: Comparison is made with prior study February 21, 2023. FINDINGS: EKG electrodes are seen The lungs are clear and expanded. There is no demonstrated pleural abnormality. Normal size heart. Normal mediastinum and jovita. Normal visualized pulmonary arteries. There is atherosclerotic calcification of the aortic arch with tortuosity. There are diffuse degenerative changes of the visualized thoracic spine. Normal visualized ribs, clavicles, and shoulders. There is no demonstrated abnormality of the visualized soft tissue structures of the upper abdomen. RAD/Chest 1 View (Portable) IMPRESSION: No acute abnormality is seen. Electronically Signed: Alvin Llanos MD at 12:21 EDT ,
[2024-08-16 12:16] LABS: Absolute Lymphocyte Count 1.27 X10^3/uL (0.83-4.51); Absolute Neutrophil Count 12.1 X10^3/uL (2.0-7.7); Basophil# 0.01 X10^3/uL; Basophil% 0.1 % (0-1); Hematocrit 36.7 % (37-47); Hemoglobin 12.6 g/dL (12.0-15.0); Lymphocyte # 1.27 X10^3/ul (0.83-4.51); Lymphocyte % 8.6 % (19-41); Mean Corp Hgb Conc 34.3 g/dL (32-36); Mean Corpuscular Hgb 29.2 pg (27.0-32.0); Mean Platelet Vol. 11.1 fl (6.2-12.0); Monocyte# 1.25 X10^3/uL; Monocyte% 8.5 % (0-10); NRBC Flagged by Analyzer 0 % (0-5); Neutrophil # 12.12 X10^3/uL (2.7-7.7); Neutrophil % 82.2 % (47-70); Platelet Count 268 K/mm3 (150-450); Red Blood Count 4.32 M/mm3 (4.2-5.4); White Blood Count 14.7 K/mm3 (4.4-11.0)
[2024-08-16 12:26] LABS: Anion Gap 16 (5-15); BUN 15 mg/dL (7-18); BUN/Creat Ratio 12.9 RATIO (10-20); Calcium,Total 8.9 mg/dL (8.5-10.1); Chloride 100 mmol/L (98-107); Creatinine, Serum 1.16 mg/dL (0.55-1.02); EST Glomerular Filtration Rate 49 mL/min (>60); Est Glom Filt Rate - Afr Amer 59 mL/min (>60); Estimated Creatinine Clearance 39.82 ml/min; Glucose 142 mg/dL (74-106); Potassium 3.1 mmol/L (3.5-5.1); Sodium Level 132 mmol/L (136-145); Troponin-I HS (w/2H Reflex) 14 pg/mL (3.0-54.0)
--- NOTE | 2024-08-16 12:30 | ED.RN ---
this nurse at bedside intermittently due to pt going in and out of svt, defib pads in place, encouraged pt to deep breath and blow out. pt returns to normal sinus to sinus tach within 10-20 seconds this triggered by movement, activity.
[2024-08-16 12:54] LABS: Mucous, Urine 0 SEEN /hpf (<or=2+); Red Blood Cells-Urine 0 SEEN /hpf (0-5); Squamous Epithelial Cells - UA 0 SEEN /hpf (5-10); White Blood Cells 0 SEEN /hpf (0-5)
--- NOTE | 2024-08-16 13:00 | NURSING ---
PCU ANGELITO MELISSA VT/AFIB, NEAR SYNCOPE
[2024-08-16 13:07] LABS: Color, Urine Yellow (Yellow); Glucose, Dipstick Normal (Normal); Leukocyte Esterase-Dipstick Negative /ul (Negative); Nitrite-Dipstick Negative (Negative); Occult Blood-Urine 50 /ul (Negative); Protein-Dipstick 100 mg/dl (Negative); Urine Bilirubin Dipstick Negative (Negative); Urine Clarity Sl. Cloudy (Clear); Urine Urobilinogen 4 mg/dl (Normal)
[2024-08-16 13:10] LABS: Ketone-Dipstick 150 mg/dl (Negative)
--- NOTE | 2024-08-16 13:18 | NURSING ---
CALLED [facility] TRANSFER LINE. TALKED TO MADDIE
[2024-08-16] MEDS: Amiodarone 150 MG in Dextrose 5%-Water (100mL Bag) 100 ML 600 MG IV BOLUS (13:30)
[2024-08-16 13:31] LABS: Bacteria 1+ /hpf (None Seen)
[2024-08-16] MEDS: Amiodarone 360 MG in Dextrose 5% Viaflo Bag 192.8 ML 33.3 MG CONT INF (13:44)
[2024-08-16 13:59] LABS: Reflex Troponin-HS? (from REC) Y
[2024-08-16 14:07] LABS: Lactic Acid 1.5 mmol/L (0.4-1.9)
--- NOTE | 2024-08-16 14:15 | CASEMGMT ---
Insurance review for hospitals In-network with [employer] insurance if transfer is recommended is as follows: [facility], [facility], [facility], [facility], [facility], [facility], and . Demetria Nickerson, Discharge Planning Asst.
--- NOTE | 2024-08-16 14:17 | NURSING ---
[facility] DR FOR DR RIVERA
--- NOTE | 2024-08-16 14:30 | NURSING ---
CALLED [facility], ETA IS 30 MIN
--- NOTE | 2024-08-16 14:48 | CM.ED ---
Social Work wood tool maker Thea inquired about which hospitals are in-network with patient's insurance. This advertising copy writer collaborated with Discharge Director Revenue regarding in-network facilities. [place] that provider has an accepting facility for patient at [facility]. Spoke with Demetria who reports [facility] is listed as in-network for [employer]. Romy Sidhu, wood tool maker. Met with patient and daughter in room, introduced to self. Patient expressed frustration with not being aware of limitations of [facility] advantage plans and had not been aware [facility] is not in network. Patient is aware of open enrollment coming soon, and plans to look at other options. Let patient know that [facility] does list as in-network with insurance. Supportive listening offered. SW visit brief, as patient's heart rate increasing, which daughter attributed to topic being frustrating to patient. Daughter encouraging of patient to use deep breathing. Encouraged patient to focus on self care. No other services requested. -GERI Whipple
[2024-08-16 15:05] LABS: Troponin-I HS 16 pg/mL (3.0-54.0)
[2024-08-16] MEDS: LORazepam 2 MG/ML Syringe 0.5 MG IV (15:42)
--- NOTE | 2024-08-16 16:08 | NURSING ---
CALLED [facility] TRANSFER LINE TO TRY A HOSPITAL WITH AVAILABLE BEDS
--- NOTE | 2024-08-16 16:13 | ED.RN ---
donna pineda present. [place] reports pt does not have aroom assigned and cant go through er d/t already accepted by internal medicine.
[2024-08-16] MEDS: Ondansetron 4 MG/2 ML Vial IV (16:31)
[2024-08-16 17:05] LABS: Magnesium 1.6 mg/dL (1.6-2.6)
--- NOTE | 2024-08-16 17:13 | NURSING ---
CALLED TRANSFER LINE FOR BED AT [facility]
--- NOTE | 2024-08-16 17:40 | NURSING ---
[facility] ICU BED 1 NURSE TO NURSE [phone]
--- NOTE | 2024-08-16 17:43 | NURSING ---
CALLED [facility], ETA IS 30 MIN
--- NOTE | 2024-08-16 18:04 | ED.RN ---
updated pt and daughter regarding transfer to [facility] bed assignment and squad in route
== END 2024-08-16 18:50 | disposition short-term general hospital (02) ==
PROVIDERS: Emergency Provider Emergency Medicine; PCP Family Medicine; Visit Provider Emergency Medicine
DX: I47.29 Other ventricular tachycardia (principal); R55 Syncope and collapse; E87.6 Hypokalemia; E87.29 Other acidosis; E78.5 Hyperlipidemia, unspecified; I10 Essential (primary) hypertension; R73.03 Prediabetes; Z79.02 Long term (current) use of antithrombotics/antiplatelets; Z79.82 Long term (current) use of aspirin; Z79.899 Other long term (current) drug therapy; Z86.73 Personal history of transient ischemic attack (TIA), and cerebral infarction without residual deficits
CPT/HCPCS: 71045; 80048; 81001; 83605; 83735; 84443; 84484; 85025; 87040; 93005; 96361; 96365; 96366; 96375; 99285; J7030; A4216; J2405

== ENCOUNTER 2025-06-14 11:03 | Emergency (ER) | payer MEDICARE, SELFPAY ==
[2025-06-14 11:04] VITALS: BP 149/69; PULSE 57; RESP 18; TEMP 37; O2SAT 97; BMI 31.4
--- NOTE | 2025-06-14 11:19 | EX.ED.UPPERE ---
HPI <JESSICA Sandoval - Last Filed: 06/14/25 12:42> History of Present Illness Chief Complaint: Laceration Narrative Narrative: Patient presenting today with skin avulsions to her right 3rd and 4th distal fingertips from a mandolin that she was using to slice a cucumber this morning. Her tetanus is not up-to-date. She is on Pradaxa due to a history of stroke and A-fib. She is right-handed. PFSH <JESSICA Sandoval - Last Filed: 06/14/25 12:42> [facility] Medical History History of melanoma Essential hypertension Temporomandibular joint disorder Angina pectoris, unspecified Anxiety Multiple food allergies History of major depression Hyperlipidemia Prediabetes Obesity (BMI 35.0-39.9 without comorbidity) Hypertension Home Medications ?Medication ?Instructions ?Recorded ?Last Taken ?Type aspirin 81 mg tablet,delayed 81 mg PO BREAKFAST heart health 02/22/23 08/14/24 History release amlodipine 10 mg tablet 10 mg PO DAILY BP #30 tabs 03/06/23 08/14/24 Rx buspirone 5 mg tablet 5 mg PO BID #60 tabs 03/06/23 08/14/24 Rx famotidine 20 mg tablet (Pepcid) 20 mg PO BID #30 tabs 03/06/23 08/14/24 Rx lisinopril 5 mg tablet 5 mg PO DAILY #30 tabs 03/06/23 08/14/24 Rx metoprolol succinate 50 mg 50 mg PO QHS #30 tabs 03/06/23 08/14/24 Rx tablet,extended release 24 hr acetaminophen 325 mg tablet 650 mg PO Q6H PRN Pain 1-10 Or 08/16/24 Unknown History Fever>100.7 alendronate 70 mg tablet 70 mg PO MO 08/16/24 08/12/24 History diphenhydramine HCl 25 mg capsule 25 mg PO Q6H PRN Itching 08/16/24 08/14/24 History (Banophen) nitrofurantoin 1 cap PO BID 08/16/24 08/15/24 History monohydrate/macrocrystals 100 mg capsule rosuvastatin 20 mg tablet 20 mg PO QHS 08/16/24 08/14/24 History Allergy/AdvReac Type Severity Reaction Status Date / Time atorvastatin (From Lipitor) Allergy Hives Verified 06/14/25 11:06 citric acid Allergy Hives Verified 06/14/25 11:06 nitrofurantoin (From Allergy PT UNSURE Verified 06/14/25 11:07 Macrobid) OF REACTION Family History Brother Heart disease Brother Heart disease Mother Diabetes Cancer Father Cancer Sister Cancer Heart disease Surgical History History of appendectomy Hx of cardiac cath Social History adopted: No household members: none housing: house number of children: 1 current occupational status: employed 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 pets and animals: No leisure activities: clubs and other Smoking Status: Never smoker alcohol intake: current alcohol intake frequency: holidays/special occasions only substance use type: does not use diet: other ROS <JESSICA Sandoval - Last Filed: 06/14/25 12:42> ROS ED Constitutional Constitutional ED: Denies fever(s) Cardiovascular Cardiovascular: Denies chest pain Respiratory/Chest Respiratory/Chest: Denies dyspnea Musculoskeletal Musculoskeletal: Denies arthralgias Integumentary Reports laceration Neurologic Neurologic: Reports paresthesias EXAM <JESSICA Sandoval - Last Filed: 06/14/25 12:42> Physical Exam Const Vital Signs: 06/14/25 11:04 Temperature 98.6 F Temperature Source Oral Pulse Rate 57 L Respiratory Rate 18 Blood Pressure 149/69 H Blood Pressure Mean 95 Pulse Ox 97 Oxygen Delivery Method Room Air Positive well nourished, well developed and no apparent distress General Appearance ED: well developed HEENT Reports normocephalic and head/scalp atraumatic Mouth ED: Yes moist mucous membranes normal Eyes PERRL and EOMs intact bilaterally Neck full ROM and supple Chest Wall inspection of chest normal Resp normal respiratory effort and clear to auscultation bilaterally Cardio regular rate and regular rhythm Back/Spine normal ROM and normal to inspection Extremity normal to inspection and full ROM Extremity Narrative: 1 cm skin avulsions to the distal aspect of the right 4th fingertip, 0.5 cm skin avulsion to the distal aspect of the right third fingertip, minimal active bleeding to the fourth fingertip, right radial pulse 2+, good cap refill, sensation intact, forage motion to all 5 fingers of the right hand. Neuro oriented x3, CN's II-XII intact bilaterally, moves all extremities, no focal motor deficits and no sensory deficits noted Sensorium / Orientation: awake and alert Psych mental status grossly normal and thought process normal Skin Skin Narrative: Aside from skin avulsions to the right 3rd and 4th fingers no other rashes or lesions noted [facility] <JESSICA Sandoval - Last Filed: 06/14/25 12:42> [facility] Narrative Medical decision making narrative: Patient presenting today with skin avulsions to the distal aspects of the right 3rd and 4th fingertips from a mandolin that she was using to cut a cucumber this morning. There is no active bleeding to the right third finger, there is minimal oozing to the right fourth fingertip. She is neurovascularly intact with full range of motion to all 5 fingers of the right hand. Both avulsions were cleaned with saline and chlorhexidine. Gelfoam was placed on both avulsions and they were bandaged with gauze. Wound care instructions were discussed with her, return instructions were discussed. Her tetanus was updated. Recommended she follow-up with her PCP and she will be discharged home in stable condition. <Dr. Khadijah Noble DO - Last Filed: 06/14/25 13:45> [facility] Narrative Medical decision making narrative: Patient presenting today with skin avulsions to the distal aspects of the right 3rd and 4th fingertips from a mandolin that she was using to cut a cucumber this morning. There is no active bleeding to the right third finger, there is minimal oozing to the right fourth fingertip. She is neurovascularly intact with full range of motion to all 5 fingers of the right hand. Both avulsions were cleaned with saline and chlorhexidine. Gelfoam was placed on both avulsions and they were bandaged with gauze. Wound care instructions were discussed with her, return instructions were discussed. Her tetanus was updated. Recommended she follow-up with her PCP and she will be discharged home in stable condition. I have personally performed a face to face assessment of the patient and have reviewed the KORIN Note. I performed a substantive portion of the visit including all aspects of the following. My read findings include: History is patient is a very pleasant 74-year-old female with history of atrial fibrillation who is on Pradaxa presenting for injury to her right 3rd and 4th tips of her fingers. She is right-hand dominant. She was cutting vegetables with a mandolin when she dropped the safety cover and went to reach it and then this caused her to slice the tip of her 3rd and 4th fingers. She has continued bleeding and also cut her nail at the distal aspect over her fourth finger. It is bleeding. She came in for further evaluation. On exam patient has a very small avulsion that is not bleeding to the tip of the right third finger however on the distal aspect of the fourth right finger there is 1 cm approximate area of avulsion with removal of the distal aspect of the nail. It is slowly oozing blood. Wounds are cleaned. Localized pressure applied for hemostasis and Gelfoam. Patient does not have further bleeding. Counseled on generalized wound care and return precautions. Patient is neurovascular intact with good range of motion of her fingers. I do not think she requires any imaging. Tetanus is updated. Discharged home in stable condition. Other additions or changes: [None] Discharge Plan Triage Chief Complaint: Laceration ED Midlevel Provider: Beba Kaiser ED Provider: Khadijah Noble Dx/Rx/DC Orders Clinical Impression: Avulsion of finger tip Instructions: ED Skin Tear (Skin Avulsion) Prescriptions: No Action aspirin 81 mg tablet,delayed release (DR/EC) 81 mg PO BREAKFAST buspirone 5 mg Tablet 5 mg PO BID Qty: 60 0RF metoprolol succinate 50 mg Tablet Extended Release 24 Hr 50 mg PO QHS Qty: 30 0RF lisinopril 5 mg Tablet 5 mg PO DAILY Qty: 30 0RF famotidine [Pepcid] 20 mg tablet 20 mg PO BID Qty: 30 0RF amlodipine 10 mg tablet 10 mg PO DAILY Qty: 30 0RF rosuvastatin 20 mg tablet 20 mg PO QHS nitrofurantoin monohyd/m-cryst 100 mg capsule 1 cap PO BID Patient Comments: FIRST DOSE MONDAY (08/14/24) EVENING acetaminophen 325 mg Tablet 650 mg PO Q6H PRN (Reason: Pain 1-10 Or Fever>100.7) diphenhydramine HCl [Banophen] 25 mg Capsule 25 mg PO Q6H PRN (Reason: Itching) alendronate 70 mg tablet 70 mg PO MO Primary Care Provider: Shahid Vera Referrals: Shahid Vera MD [Primary Care Provider] - 5-7 Days Activity Restrictions/Additional Instructions: Follow-up with your PCP and return for any signs of infection or if you have any other concerns. Remove bandage in 48 hours, keep area clean and be careful not to remove any scab. Print Language: Chinese Disposition Disposition: Home, Self Care Discharge Date/Time: 06/14/25 12:03
--- OUTSIDE RECORDS SUMMARY | 2025-06-14 11:24 | XMS RPT_ITS | CCD ---
Author Organization [facility] Care Team Providers Care [employer] Web[employer] Portal Developer Name Role Phone Reji, Dr. Turner Emergency Provider [phone] Care Physician, No Primary Primary Care Provider Unavailable Nishi, Dr. Mott Admit Provider Unavailable Nishi, Dr. Mott Attending Provider Unavailable Nishi, Dr. Mott Other Provider Unavailable Michoacano, Dr. Monique Attending Provider Ceci Vera MD Primary Care Provider Unavailable Primary Care Provider Ceci Martinez MD Primary Care Provider CECI VERA Referring Unavailab CECI Elizabeth Referring Unavailab CECI Elizabeth Referring Unavailab Ceci Elizabeth MD Primary Care Provider Provider Brian DEVI Unavailable Unavailable Shahid Vera Primary Care Unavailable Charanjit Rivera Attending Unavailable Yuniel Pena Admitting Unavailable Podlogar HAND ENDBAND CUTTER.Radha KAPADIA Unavailable CARY BA MD Referring Unavailable CECI VERA Primary Care Unavailab CECI Elizabeth Primary Care Unavailab LANE Knight Referring Unavailable JOE WATTS Admitting UnavailJOE Galeana Attending UnavailCECI Hope Primary Care Unavailab CHARANJIT Clarke Referring Unavailab le [place] HAND ENDBAND CUTTER.Rosalind KAPADIA Unavailable [place] HAND ENDBAND CUTTER.Rosalind KAPADIA Unavailable CECI VERA Primary Care Unavailab le RADHA ZAMORA Attending Unavailable CECI VERA Referring Unavailab CECI Elizabeth Primary Care Unavailab CECI Elizabeth Attending Unavailab CECI Elizabeth Primary Care Unavailab CECI Elizabeth Primary Care Unavailab le CECI VERA Referring Unavailab le PODLOGAR, RADHA Referring Unavailable CECI VERA Primary Care Unavailab le PODLOGAR, RADHA Referring Unavailable CECI VERA Primary Care Unavailab le PODLOGAR, RADHA Referring Unavailable CECI VERA Primary Care Unavailab le PODLOGAR, RADHA Attending Unavailable CECI VERA Primary Care Unavailab le [place] 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, Rosalind Unavailable Allergies Allergy Classification Reported Allergen(s) Allergy Type Date of Onset Reaction(s) Facility HMG-CoA Reductase Inhibitors (statins) (1 source) atorvastatin Drug Allergy 03-13-2023 [facility] (2 sources) Wheat preparation Drug Allergy 02-21-2023 [facility] (20 sources) atorvastatin; Translations: [ATORVASTATIN] Drug Allergy 03-13-2023 [facility] (20 sources) NITROFURANTOIN, MACROCRYSTALS / Nitrofurantoin, Monohydrate; Translations: [NITROFURANTOIN MONOHYD/M-CRYST] Drug Allergy 08-17-2024 Intolerance [facility] (1 source) atorvastatin Drug Allergy 03-13-2023 [facility] (1 source) brown rice preparation Drug Allergy 03-13-2023 [facility] (1 source) Citric Acid Drug Allergy 03-13-2023 [facility] (1 source) Wheat preparation Drug Allergy 03-13-2023 [facility] (1 source) Food Allergies: Uncoded; Translations: [Food Allergies: Uncoded] Food allergy (disorder) 03-13-2023 [facility] Medications Current Medications Medication Drug Class(es) Dates Sig (Normalized) Sig (Original) acetaminophen 325 mg oral tablet (1 source) Start: 02-22-2023 take 650 mg by mouth every six hours as needed Acetaminophen Active 650 MG PO EVERY 6 HOURS NEEDED 0 February 22, 2023 12:00am alendronic acid 70 mg oral tablet (20 sources) Bisphosphonate Start: 06-12-2023 End: 05-14-2026 take 1 tablet by mouth every week alendronate (FOSAMAX) 70 mg tablet Take 1 tablet by mouth one time a week. Take with a full glass of water, on an empty stomach; do NOT lie down for 30minutes. 12 tablet 3 05/14/2025 05/14/2026 Active Comment on above: Take 1 tablet by teresa th one time a week. Take with a full glass of water, on an empty stomach; do NOT lie down for 30minutes. aluminum hydroxide 80 mg/ml / magnesium hydroxide 80 mg/ml / simethicone 8 mg/ml oral suspension (1 source) Start: 02-22-2023 take 1 mL by mouth every six hours as needed Alum-Mag Hydroxide-Simeth (Mag-Al Plus Extra Strength) 400-400-40 mg/5 mL Suspension Active 30 ML PO EVERY 6 HOURS NEEDED 0 February 22, 2023 12:00am amLODIPine 10 mg oral tablet (20 sources) Dihydropyridine Calcium Channel Alley Start: 04-01-2024 End: 09-20-2025 take 1 tablet by mouth once daily amLODIPine (NORVASC) 10 mg tablet Take 1 tablet by mouth once daily. 90 tablet 1 03/24/2025 09/20/2025 Active Start: 10-02-2023 End: 03-30-2024 take 1 tablet by mouth once daily amLODIPine (NORVASC) 10 mg tablet Take 1 tablet by mouth once daily. 90 tablet 1 10/02/2023 03/29/2024 Discontinued Start: 01-10-2014 End: 09-09-2023 take 1 tablet by mouth once daily amLODIPine (NORVASC) 10 mg tablet Take 1 tablet by mouth once daily. 90 tablet 1 03/13/2023 Active Comment on above: Take 1 tablet by teresa th once daily. amoxicillin 875 mg / clavulanate 125 mg oral tablet (2 sources) Penicillin-class Antibacterial Start: End: take 1 tablet by mouth twice daily amoxicillin-clavul anate potassium (AUGMENTIN) 875-125 mg per tablet Take 1 tablet by mouth two times a day for 5 days. 10 tablet 08/19/2024 08/24/2024 Active apixaban 5 mg oral tablet (6 sources) Factor Xa Inhibitor Start: 4 End: 4 take 1 tablet by mouth twice daily apixaban (ELIQUIS) 5 mg tab(s) Take 1 tablet by mouth two times a day. 60 tablet 08/19/2024 09/18/2024 Active aspirin 81 mg delayed release oral tablet (20 sources) Platelet Aggregation Inhibitor, Nonsteroidal Anti-inflammatory Drug Start: 3 End: 3 take 1 tablet by mouth once daily aspirin, enteric coated (ASPIRIN, ENTERIC COATED) 81 mg EC tablet Take 1 tablet by mouth once daily. 90 tablet 1 03/13/2023 Active Start: 12-11-2012 End: 03-13-2023 take 1 tablet by mouth once daily as needed aspirin 325 mg tablet Take 1 tablet by mouth once daily as needed. 0 12/11/2012 03/13/2023 Discontinued Comment on above: Take 1 tablet by teresa th once daily. Take 1 tablet by teresa th once daily as needed. Take 81 mg by mouth once daily. atorvastatin 80 mg oral tablet (1 source) HMG-CoA Reductase Inhibitor Start: 02-23-20 23 take 80 mg by mouth at bedtime Atorvastatin Active 80 MG PO AT BEDTIME 0 February 22, 2023 12:00am benzonatate 100 mg oral capsule (13 sources) Non-narcotic Antitussive Start: 08-19-20 24 End: 08-24-20 24 take 2 capsules by mouth every eight hours as needed benzonatate (TESSALON PERLE) 100 mg capsule Take 2 capsules by mouth three times a day as needed for cough for up to 5 days. 15 capsule 08/19/2024 08/24/2024 Active Start: 12-16-2017 End: 05-15-2023 take 1 capsule by mouth every eight hours as needed benzonatate (TESSALON PERLE) 100 mg capsule Take 1 capsule by mouth three times daily as needed. 60 capsule 0 12/16/2017 05/15/2023 Discontinued Comment on above: Take 1 capsule by mo [facility] three times daily as needed. busPIRone hydrochloride 5 mg oral tablet (20 sources) Start: 04-01-2024 End: 09-20-2025 take 1 tablet by mouth twice daily busPIRone (BUSPAR) 5 mg tablet Take 1 tablet by mouth two times a day. 180 tablet 1 03/24/2025 09/20/2025 Active Start: 10-02-2023 End: 03-30-2024 take 1 tablet by mouth twice daily busPIRone (BUSPAR) 5 mg tablet Take 1 tablet by mouth two times a day. 180 tablet 1 10/02/2023 03/29/2024 Discontinued Start: 03-13-2023 End: 09-09-2023 take 1 tablet by mouth twice daily busPIRone (BUSPAR) 5 mg tablet Take 1 tablet by mouth twice daily. 180 tablet 1 03/13/2023 09/09/2023 Comment on above: Take 1 tablet by teresa th twice daily. Take 5 mg by mouth t wice daily. Take 1 tablet by teresa th two times a day. Calcium Carbonate / vitamin D3 (1 source) calcium carbonate/vitamin D3 (CALCIUM+D ORAL) Take by mouth once daily. Active clopidogrel 75 mg oral tablet (12 sources) [id number] Platelet Inhibitor Start: 02-22-2023 End: 05-15-2023 take 1 tablet by mouth once daily Clopidogrel (Plavix) 75 mg tablet Active 75 MG PO DAILY February 22, 2023 12:00am Comment on above: Take 75 mg by mouth once daily. colchicine 0.6 mg oral tablet (20 sources) Start: 12-09-2024 take 1 tablet by mouth once daily colchicine 0.6 mg tablet Indications: Low serum uric acid for age Take 1 tablet by mouth once daily. 30 tablet 5 12/09/2024 Active Start: 08-19-2024 End: 12-07-2024 take 1 tablet by mouth once daily colchicine 0.6 mg tablet Indications: Low serum uric acid for age Take 1 tablet by mouth once daily. 30 tablet 5 11/11/2024 12/07/2024 Discontinued dabigatran etexilate 150 mg oral capsule (20 sources) Start: 09-09-2024 End: 05-14-2025 take 1 capsule by mouth twice daily dabigatran etexilate (PRADAXA) 150 mg Indications: Paroxysmal ventricular tachycardia (HCC) Take 1 capsule by mouth two times a day. 60 capsule 05/14/2025 Active diphenhydrAMINE hydrochloride 25 mg oral capsule (20 sources) Histamine-1 Receptor Antagonist take 1 capsule by mouth every six hours as needed diphenhydrAMINE (BENADRYL) 25 mg capsule Take 25 mg by mouth every 6 hours as needed. Active Comment on above: Take 25 mg by mouth every 6 hours as needed. docusate sodium 50 mg / sennosides, detention 8.6 mg oral tablet (1 source) Start: 02-22-2023 take 2 tablets by mouth twice daily as needed Sennosides-Docusate Sodium (Stool Softener-Stimulant Laxat) 8.6-50 mg Tablet Active 2 TABLET PO TWICE DAILY NEEDED February 22, 2023 12:00am lisinopril 5 mg oral tablet (20 sources) Angiotensin Converting Enzyme Inhibitor Start: 08-19-2024 take 1 tablet by mouth every twelve hours lisinopril (ZESTRIL) 5 mg tablet Take 1 tablet by mouth every 12 hours. 60 tablet 11 08/19/2024 Active Start: 04-01-2024 End: 09-28-2024 take 1 tablet by mouth once daily lisinopril (ZESTRIL) 5 mg tablet Take 1 tablet by mouth once daily. 90 tablet 1 04/01/2024 09/28/2024 Suspended Start: 10-02-2023 End: 03-30-2024 take 1 tablet by mouth once daily lisinopril (ZESTRIL) 5 mg tablet Take 1 tablet by mouth once daily. 90 tablet 1 10/02/2023 03/29/2024 Discontinued Start: 03-13-2023 End: 09-09-2023 take 1 tablet by mouth once daily lisinopril (ZESTRIL) 5 mg tablet Take 1 tablet by mouth once daily. 90 tablet 1 03/13/2023 Active Comment on above: Take 1 tablet by teresa th once daily. Take 5 mg by mouth o nce daily. melatonin 3 mg oral tablet (1 source) Start: 02-22-2023 take 3 mg by mouth at bedtime as needed Melatonin Active 3 MG PO AT BEDTIME NEEDED February 22, 2023 12:00am metoprolol tartrate 75 mg oral tablet (20 sources) beta-Adrenergic Alley Start: 05-13-2025 End: 10-10-2025 take 1 tablet by mouth every twelve hours metoprolol tartrate 75 mg tab Take 1 tablet by mouth every 12 hours. 60 tablet 4 05/13/2025 10/10/2025 Active Start: 08-19-2024 End: 05-10-2025 take 1 tablet by mouth every twelve hours metoprolol tartrate 75 mg tab Take 1 tablet by mouth every 12 hours. 60 tablet 4 12/11/2024 05/09/2025 Discontinued Start: 04-01-2024 End: 09-28-2024 take 1 tablet by mouth once daily metoprolol succinate ER (TOPROL XL) 50 mg 24 hr tablet Take 1 tablet by mouth once daily. 90 tablet 1 04/01/2024 09/28/2024 Suspended Start: 10-02-2023 End: 03-30-2024 take 1 tablet by mouth once daily metoprolol succinate ER (TOPROL XL) 50 mg 24 hr tablet Take 1 tablet by mouth once daily. 90 tablet 1 10/02/2023 03/29/2024 Discontinued Start: 03-13-2023 End: 09-09-2023 take 1 tablet by mouth once daily metoprolol succinate ER (TOPROL XL) 50 mg 24 hr tablet Take 1 tablet by mouth once daily. 90 tablet 1 03/13/2023 Active Comment on above: Take 1 tablet by teresa th once daily. Take 50 mg by mouth once daily. rosuvastatin calcium 20 mg oral tablet (20 sources) HMG-CoA Reductase Inhibitor Start: 04-01-20 End: 09-20-20 take 1 tablet by mouth once daily at bedtime rosuvastatin (CRESTOR) 20 mg tablet Indications: Cerebrovascular accident (CVA), unspecified mechanism (HCC) Take 1 tablet by mouth daily at bedtime. 90 tablet 1 03/24/2025 09/20/2025 Active Start: 07-12-2023 End: 03-30-2024 take 1 tablet by mouth once daily at bedtime rosuvastatin (CRESTOR) 20 mg tablet Indications: Cerebrovascular accident (CVA), unspecified mechanism (HCC) Take 1 tablet by mouth daily at bedtime. 90 tablet 1 10/02/2023 03/29/2024 Discontinued Comment on above: Take 1 tablet by teresa th daily at bedtime. traZODone hydrochloride 50 mg oral tablet (20 sources) Serotonin Reuptake Inhibitor Start: End: take 1 tablet by mouth once daily at bedtime traZODone (DESYREL) 50 mg tablet Indications: Chronic insomnia Take 1 tablet by mouth daily at bedtime. 90 tablet 1 05/13/2025 11/09/2025 Active Start: 08-12-2024 End: 02-08-2025 take 1 tablet by mouth once daily at bedtime traZODone (DESYREL) 50 mg tablet Indications: Chronic insomnia Take 1 tablet by mouth daily at bedtime. 90 tablet 1 08/12/2024 02/08/2025 Active Start: 05-15-2023 End: 08-10-2024 take 1 tablet by mouth once daily at bedtime traZODone (DESYREL) 50 mg tablet Indications: Chronic insomnia Take 1 tablet by mouth daily at bedtime. 90 tablet 1 02/12/2024 08/10/2024 Discontinued Comment on above: Take 1 tablet by teresa th daily at bedtime. Completed/Discontinued Medications Medication Drug Class(es) Dates Sig (Normalized) Sig (Original) albuterol 5 mg/ml inhalation solution (17 sources) beta2-Adrenergic Agonist Start: 12-16-2017 End: 06-21-2023 albuterol (PROVENTIL) 5 mg/mL nebu Indications: Chest tightness Inhale 0.5 mL as instructed one time only for 1 dose. 1 DOSE NOW - BACK OFFICE. PLACE 0.5 ML PER DROPPER AND 2.5 ML OF NORMAL SALINE INTO RESERVOIR. 1 mL 0 12/16/2017 06/21/2023 Discontinued (Other) Comment on above: Inhale 0.5 mL as ins tructed one time only for 1 dose. 1 DOSE NOW - BACK OFFICE. PLACE 0.5 ML PER DROPPER AND 2.5 ML OF NORMAL SALINE INTO RESERVOIR. famotidine 20 mg oral tablet (20 sources) Histamine-2 Receptor Antagonist Start: 03-13-2023 End: 09-09-2023 take 1 tablet by mouth twice daily famotidine (PEPCID) 20 mg tablet Take 1 tablet by mouth twice daily. 180 tablet 1 03/13/2023 09/09/2023 Comment on above: Take 1 tablet by teresa th twice daily. Take 20 mg by mouth twice daily. 12 hr guaiFENesin 600 mg extended release oral tablet (1 source) Start: 12-16-2017 End: 03-13-2023 take 2 tablets by mouth twice daily guaiFENesin (MUCINEX) 600 mg 12 hr tablet Take 2 tablets by mouth twice daily. 30 tablet 0 12/16/2017 03/13/2023 Discontinued Comment on above: Take 2 tablets by mo [facility] twice daily. nitrofurantoin, macrocrystals 25 mg / nitrofurantoin, monohydrate 75 mg oral capsule (3 sources) Nitrofuran Antibacterial Start: 08-14-2024 End: 08-21-2024 take 1 capsule by mouth twice daily at mealtime nitrofurantoin monohydrate and macrocrystal (MACROBID) 100 mg capsule Take 1 capsule by mouth two times a day with meals for 7 days. 14 capsule 08/14/2024 08/21/2024 Suspended pravastatin sodium 80 mg oral tablet (20 sources) HMG-CoA Reductase Inhibitor Start: 05-15-2023 End: 11-11-2023 take 1 tablet by mouth once daily pravastatin (PRAVACHOL) 80 mg tablet Take 1 tablet by mouth once daily. 90 tablet 1 05/15/2023 07/12/2023 Discontinued Start: 03-13-2023 End: 09-09-2023 take 1 tablet by mouth once daily pravastatin (PRAVACHOL) 40 mg tablet Take 1 tablet by mouth once daily. 90 tablet 1 03/13/2023 05/15/2023 Discontinued Comment on above: Take 1 tablet by teresa once daily. Take 40 mg by mouth once daily. simvastatin 20 mg oral tablet (1 source) HMG-CoA Reductase Inhibitor Start: 01-10-20 14 End: 03-13-20 take 1 tablet by mouth once daily at bedtime simvastatin 20 mg tablet Take 1 tablet by mouth daily at bedtime. 30 tablet 12 01/10/2014 03/13/2023 Discontinued Comment on above: Take 1 tablet by teresa daily at bedtime. ubidecarenone 10 mg oral capsule (1 source) Start: 10-15-20 End: 03-13-20 ubidecarenone Q-10 (COENZYME Q-10) 10 mg cap Take by mouth twice daily. 0 10/15/2014 03/13/2023 Discontinued Comment on above: Take by mouth twice daily. vitamin b12 1 mg oral tablet (1 source) Vitamin B12 Start: 10-15-20 14 End: 03-13-20 take 1 tablet by mouth once daily cyanocobalamin (VITAMIN B-12) 1,000 mcg tab Take 1 tablet by mouth once daily. 0 10/15/2014 03/13/2023 Discontinued Comment on above: Take 1 tablet by teresa th once daily. Problems Active Problems Problem Classification Problem Date Documented Date Episodic/Chronic Acute cerebrovascular disease (20 sources) Cerebrovascular accident; Translations: [Cerebral infarction, unspecified] Onset: 04-07-2023 02-21-2023 Chronic Adjustment disorders (20 sources) Adjustment disorder with depressed mood; Translations: [Adjustment disorder with depressed mood] 07-31-2007 Chronic Administrative/social admission (10 sources) Patient encounter status; Translations: [Persons encountering health services in other specified circumstances] Episodic Anxiety disorders (20 sources) Anxiety; Translations: [Anxiety disorder, unspecified] Onset: 05-15-2023 Chronic Cardiac dysrhythmias (20 sources) Paroxysmal ventricular tachycardia; Translations: [Paroxysmal ventricular tachycardia] Onset: 08-16-2024 08-16-2024 Chronic Cardiac dysrhythmias (1 source) Palpitations; Translations: [Palpitations] Onset: 09-10-2024 Episodic Conditions associated with dizziness or vertigo (2 sources) Loss of equilibrium; Translations: [Dizziness and giddiness] 02-21-2023 Episodic Coronary atherosclerosis and other heart disease (20 sources) Angina pectoris; Translations: [Angina pectoris, unspecified] Onset: 11-20-2001 Resolved: 03-14-2023 03-14-2023 Chronic Deficiency and other anemia (1 source) Anemia; Translations: [Anemia, unspecified] 12-25-2024 Episodic Diabetes mellitus without complication (1 source) Hyperglycemia; Translations: [Hyperglycemia, unspecified] 04-25-2024 Episodic Disorders of lipid metabolism (20 sources) Hyperlipidemia; Translations: [Hyperlipidemia, unspecified] Onset: 06-24-2024 07-31-2007 Chronic Essential hypertension (20 sources) Hypertensive disorder; Translations: [Essential (primary) hypertension] Onset: 06-07-2010 02-21-2023 Chronic Late effects of cerebrovascular disease (1 source) Late effects of cerebrovascular disease; Translations: [Unspecified sequelae of unspecified cerebrovascular disease] 08-08-2023 Chronic Miscellaneous mental health disorders (6 sources) Chronic insomnia; Translations: [Psychophysiologic insomnia] Chronic Mood disorders (20 sources) Major depressive disorder; Translations: [Major depressive disorder, single episode, unspecified] Onset: 03-31-2010 03-31-2010 Chronic Occlusion or stenosis of precerebral arteries (1 source) Bilateral stenosis of carotid arteries; Translations: [Occlusion and stenosis of bilateral carotid arteries] Onset: 05-30-2023 05-27-2025 Chronic Osteoporosis (2 sources) Osteoporosis; Translations: [Age-related osteoporosis without current pathological fracture] 08-21-2023 Chronic Other aftercare (1 source) Post-discharge follow-up; Translations: [Encounter for follow-up examination after completed treatment for conditions other than malignant neoplasm] 09-02-2024 Episodic Other aftercare (2 sources) Long-term current use of anticoagulant; 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] 05-27-2025 Episodic Other circulatory disease (2 sources) Carotid bruit; Translations: [Other specified symptoms and signs involving the circulatory and respiratory systems] Episodic Other circulatory disease (1 source) History of cerebrovascular accident due to ischemia; Translations: [Personal history of transient ischemic attack (TIA), and cerebral infarction without residual deficits] 08-08-2023 Episodic Other circulatory disease (1 source) History of cerebrovascular accident; Translations: [Personal history of transient ischemic attack (TIA), and cerebral infarction without residual deficits] 05-27-2025 Episodic Other connective tissue disease (1 source) Swelling of right lower limb; Translations: [Other specified soft tissue disorders] 06-24-2024 Episodic Other lower respiratory disease (3 sources) Imaging of lung abnormal ; Translations: [Other nonspecific abnormal finding of lung field] 09-02-2024 Episodic Other nervous system disorders (1 source) Other chronic pain; Translations: [Chronic right shoulder pain] Onset: 06-24-2024 Chronic Other non-traumatic joint disorders (3 sources) Chronic pain of right upper limb; Translations: [Pain in right shoulder] 03-22-2024 Episodic Other non-traumatic joint disorders (3 sources) Decreased range of shoulder movement; Translations: [Stiffness of unspecified shoulder, not elsewhere classified] 03-22-2024 Episodic Other nutritional; endocrine; and metabolic disorders (2 sources) Obesity caused by energy imbalance; Translations: [Other obesity due to excess calories] 03-22-2024 Chronic Other nutritional; endocrine; and metabolic disorders (20 sources) Obese class I; Translations: [Obesity, unspecified] Onset: 08-16-2024 Resolved: 05-27-2025 08-16-2024 Chronic Other nutritional; endocrine; and metabolic disorders (1 source) Other obesity due to excess calories; Translations: [Class 1 obesity due to excess calories with body mass index (BMI) of 30.0 to 30.9 in adult, unspecified whether serious comorbidity present] Onset: 12-11-2012 Chronic Other nutritional; endocrine; and metabolic disorders (1 source) Body mass index (BMI) 30.0-30.9, adult; Translations: [Class 1 obesity due to excess calories with body mass index (BMI) of 30.0 to 30.9 in adult, unspecified whether serious comorbidity present] Onset: 12-11-2012 Chronic Other screening for suspected conditions (not mental disorders or infectious disease) (6 sources) Decreased uric acid level; Translations: [Other specified abnormal findings of blood chemistry] Onset: 06-24-2024 09-17-2024 Episodic Paralysis (20 sources) Right hemiparesis; Translations: [Hemiplegia, unspecified affecting right dominant side] Onset: 03-14-2023 Chronic Residual codes; unclassified (2 sources) Postmenopausal state; Translations: [Asymptomatic menopausal state] Episodic Residual codes; unclassified (4 sources) Past history of procedure; Translations: [Personal history of other medical treatment] Onset: 06-14-2010 06-13-2025 Episodic Thyroid disorders (4 sources) Thyroid nodule; Translations: [Nontoxic single thyroid nodule] Onset: 01-14-2025 01-08-2025 Chronic Urinary tract infections (1 source) Acute cystitis; Translations: [Acute cystitis without hematuria] 08-14-2024 Episodic Past or Other Problems Problem Classification Problem Date Documented Date Episodic/Chronic Acute and unspecified renal failure (4 sources) Acute renal failure syndrome; Translations: [Acute kidney failure, unspecified] Onset: 08-14-2024 03-25-2024 Episodic Coma; stupor; and brain damage (4 sources) Daytime somnolence; Translations: [Somnolence] Onset: 06-24-2024 03-22-2024 Episodic Deficiency and other anemia (1 source) Anemia, unspecified; Translations: [Anemia, unspecified type] Onset: 12-25-2024 Episodic Disorders of teeth and jaw (20 sources) Temporomandibular joint disorder; Translations: [Unspecified temporomandibular joint disorder, unspecified side] Onset: 06-12-2008 06-12-2008 Episodic Immunizations and screening for infectious disease (1 source) Encounter for immunization; Translations: [Encounter for immunization] Onset: 09-02-2024 Episodic Malaise and fatigue (20 sources) Right hemiparesis; Translations: [Weakness] Onset: 03-14-2023 02-21-2023 Episodic Melanomas of skin (20 sources) H/O Malignant melanoma; Translations: [Personal history of malignant melanoma of skin] Onset: 10-15-2014 10-15-2014 Episodic Other aftercare (1 source) Encounter for follow-up examination after completed treatment for conditions other than malignant neoplasm; Translations: [Hospital discharge follow-up] Onset: 09-02-2024 Episodic Other connective tissue disease (20 sources) Soft tissue lesion of shoulder region; Translations: [Bursopathy, unspecified] Onset: 06-27-2009 Resolved: 05-27-2025 06-27-2009 Episodic Other connective tissue disease (1 source) Other specified soft tissue disorders; Translations: [Right leg swelling] Onset: 06-24-2024 Episodic Other lower respiratory disease (1 source) Other nonspecific abnormal finding of lung field; Translations: [Abnormal CT scan of lung] Onset: 09-02-2024 Episodic Other non-traumatic joint disorders (1 source) Pain in right shoulder; Translations: [Chronic right shoulder pain] Onset: 06-24-2024 Episodic Other non-traumatic joint disorders (1 source) Stiffness of unspecified shoulder, not elsewhere classified; Translations: [Limited range of motion (ROM) of shoulder] Onset: 06-24-2024 Episodic Other nutritional; endocrine; and metabolic disorders (20 sources) Obesity; Translations: [Obesity, unspecified] Onset: 12-11-2012 Resolved: 05-27-2025 12-11-2012 Chronic Other nutritional; endocrine; and metabolic disorders (20 sources) Body mass index 25-29 - overweight; Translations: [Overweight] Onset: 05-15-2023 Resolved: 05-27-2025 Episodic Pneumonia (except that caused by tuberculosis or sexually transmitted disease) (2 sources) Pneumonia; Translations: [Pneumonia, unspecified organism] Onset: 09-02-2024 09-02-2024 Episodic Residual codes; unclassified (1 source) History of cardiac catheterization; Translations: [Other specified postprocedural states] Onset: 11-20-2001 05-27-2025 Episodic Unclassified (1 source) Patient encounter status 02-25-2025 Results Test Name Value Interpretation Reference Range Facility US THYROID/PARATHYROIDon US THYROID/PARATHYROID * * *Final Report * * * DATE OF EXAM: Jan 14 2025 11:02AM [facility] 1048 - US THYROID/PARATHYROID / PROCEDURE REASON: Thyroid nodule * * * * Physician Interpretation * * * * EXAMINATION: THYROID ULTRASOUND CLINICAL HISTORY: Thyroid nodule TECHNIQUE: Sonography and Doppler imaging of the thyroid was performed. Images were obtained and stored in a permanent archive. MQ: UST_1 COMPARISON: None. RESULT: Right Lobe: 4.3 cm x 1.7 cm x 1.3 cm; homogeneous echogenicity, expected vascular flow. Left Lobe: 3.0 cm x 1.0 cm x 1.1 cm; homogeneous echogenicity, expected vascular flow. Isthmus: 0.5 cm The most suspicious thyroid nodule(s) (up to four) as below: NODULE 1: Location: Left inferior Size: 1.7 x 1.1 x 0.9 cm Characteristics: Composition: Solid or almost completely solid, 2 points Echogenicity: Echogenicity cannot be determined, 1 point Shape: [id number], 0 points Margin: Smooth, 0 points Echogenic foci (add points for all that apply): None, 0 points Internal vascularity: present Interval growth: No prior available for comparison TI-RADS Category: TR3 ACR Recommendation: TI-RADS 3 nodule. Follow-up imaging at 1, 3 and 5 years is recommended. IMPRESSION: Thyroid nodule(s) is/are present. Surveillance imaging is recommended for one or more nodules as detailed in the synoptic report. TI-RADS Category: TR3 ACR Recommendation: TI-RADS 3 nodule. Follow-up imaging at 1, 3 and 5 years is recommended. ACR recommendations are strictly based on the size and imaging appearance at the time of the exam and do not consider stability or previous biopsy results. Director Group Sales: [employer] Transcribe Date/Time: Jan 16 2025 9:32A Dictated by : LAINEY CALERO MD This examination was interpreted and the report reviewed and electronically signed by: LAINEY CALERO MD on Jan 16 2025 9:35AM EST [id number] Normal [facility] CT CHEST WO IVCONon 01-03-20 CT CHEST WO IVCON * * *Final Report* * * DATE OF EXAM: Jan 03 2025 1:39PM [facility] 0541 - CT CHEST WO IVCON / PROCEDURE REASON: Abnormal CT scan of lung * * * * Physician Interpretation * * * * EXAMINATION: CHEST CT WITHOUT CONTRAST CLINICAL HISTORY: Pneumonia Technique: Spiral CT acquisition of the chest from the thoracic inlet to the upper abdomen without contrast. MQ: CTCWO_6 CT Radiation dose: Integrated Dose-length product (DLP) for this visit = 244 mGy*cm CT Dose Reduction Employed: Automated exposure control(AEC) and iterative recon Comparison: 08/16/2024 RESULT: Limitations: None. Lines, tubes, and devices: None. Lung parenchyma and airways: Minimal biapical fibrosis. There is no pneumothorax or endobronchial lesion. Scarring is seen medially within the right lower lobe from degenerative change within the spine. Dense consolidation seen within the left lower lobe on the prior examination has resolved in the interval. There are subtle tree-in-bud type pulmonary nodules seen medially within the right lower lobe, likely infectious or inflammatory in etiology. Similar findings are seen to a lesser extent medially within the left lower lobe. There is no pneumothorax. Mild, diffuse bronchiectasis. There are stable subcentimeter pulmonary nodules seen elsewhere within the lungs. For example, there is a stable 2 mm nodule seen within the right lower lobe (series 5, image #107). Pleural space: There is no pleural effusion. Lower neck, lymph nodes, and mediastinum: There has been interval improvement in size of mediastinal and bilateral hilar lymph nodes, when compared the prior examination. No carlos axillary lymphadenopathy is identified. Again seen is a hypodense nodule within the left lobe of thyroid gland, measuring approximately 1 cm (series 5, image #25). Heart, pericardium, and thoracic vessels: Atherosclerotic calcifications are present within the thoracic aorta and coronary arteries. Fatty hypertrophy intra-atrial septum. The heart is normal in size. There is no significant pericardial effusion. There is a small hiatal hernia. Bones and soft tissues: There is scoliosis, osteopenia, and multilevel degenerative change seen within the visualized spine. There is bilateral shoulder DJD. A few presumed bone islands are incidentally noted within the osseous structures. Upper abdomen: Contents are seen within a somewhat distended stomach. There is mild, nonspecific bilateral perinephric fat stranding. Gallbladder is collapsed. There is no biliary dilation. There is an approximately 2.0 x 1.4 cm cyst seen within the posterior segment of the right hepatic lobe (series 5, image #164). IMPRESSION: 1. Interval resolution of dense consolidation seen within the left lower lobe, when compared the prior examination. Subtle tree-in-bud type pulmonary nodules are seen medially within the right lower lobe, likely infectious or inflammatory in etiology. Similar findings are seen to a lesser extent medially within the left lower lobe. 2. Stable subcentimeter pulmonary nodules seen elsewhere within the lungs. 3. Interval improvement in size of mediastinal and bilateral hilar lymph nodes, when compared the prior examination. Director Group Sales: [facility] Transcribe Date/Time: Jan 08 2025 6:02A Dictated by : EKTA DIXON MD This examination was interpreted and the report reviewed and electronically signed by: EKTA DIXON MD on Jan 08 2025 4:00PM EST [id number] Normal [facility] CBC W Auto Differential pane l (Bld)on 12-25-2024 Basophils (Bld) [#/Vol] 10*3/uL Normal <0.[address] [facility] Comment on above: Order Comment: Speci men Type: BLOOD SPECIMENOrdering Facility: [facility] Address: [address] [place] [address] Performed By: #### 5 7021-8 ####[facility]CL[facility] [id number] [place] [address] [place] Basophils/100 WBC (Bld) 0.1 % Normal C [facility] Comment on above: Order Comment: Speci men Type: BLOOD SPECIMENOrdering Facility: [facility] Address: [address] [place] [address] Performed By: #### 5 7021-8 ####[facility] [id number] [place] [address] [place] Differential cell count method Nom (Bld) Auto Normal [facility] Comment on above: Order Comment: Speci men Type: BLOOD SPECIMENOrdering Facility: [facility] Address: [address] [place] [address] Performed By: #### 5 7021-8 ####[facility] [id number] [place] [address] [place] Eosinophils (Bld) [#/Vol] 10*3/uL Normal <0.46 [facility] Comment on above: Order Comment: Speci men Type: BLOOD SPECIMENOrdering Facility: [facility] Address: [address] [place] [address] Performed By: #### 5 7021-8 ####[facility] [id number] [place] [address] [place] Eosinophils/100 WBC (Bld) 0.0 % Normal [facility] Comment on above: Order Comment: Speci men Type: BLOOD SPECIMENOrdering Facility: [facility] Address: [address] [place] [address] Performed By: #### 5 7021-8 ####[facility] [id number] [place] [address] [place] Erythrocyte distribution width (RBC) [Ratio] 12.5 % Normal 11.5-15.0 [facility] Comment on above: Order Comment: Speci men Type: BLOOD SPECIMENOrdering Facility: [facility] Address: [address] [place] [address] Performed By: #### 5 7021-8 ####[facility] [id number] [place] [address] [place] Hematocrit (Bld) [Volume fraction] 37.0 % Normal 36.0-46.0 [facility] Comment on above: Order Comment: Speci men Type: BLOOD SPECIMENOrdering Facility: [facility] Address: [address] [place] [address] Performed By: #### 5 7021-8 ####[facility] LABIA [id number] [place] [address] [place] Hemoglobin (Bld) [Mass/Vol] 12.0 g/dL Normal 11.5-15.5 [facility] Comment on above: Order Comment: Speci men Type: BLOOD SPECIMENOrdering Facility: [facility] Address: [address] [place] [address] Performed By: #### 5 7021-8 ####[facility]IA [id number] [place] [address] [place] Immature granulocytes (Bld) [#/Vol] 0.04 10*3/uL Normal <0.10 [facility] Comment on above: Order Comment: Speci men Type: BLOOD SPECIMENOrdering Facility: [facility] Address: [address] [place] [address] Performed By: #### 5 7021-8 ####[facility]IA [id number] [place] [address] [place] Immature granulocytes/100 WBC (Bld) 0.6 % Normal [facility] Comment on above: Order Comment: Speci men Type: BLOOD SPECIMENOrdering Facility: [facility] Address: [address] [place] [address] Performed By: #### 5 7021-8 ####[facility]IA [id number] [place] [address] [place] Lymphocytes (Bld) [#/Vol] 1.53 10*3/uL Normal 1.00-4.00 [facility] Comment on above: Order Comment: Speci men Type: BLOOD SPECIMENOrdering Facility: [facility] Address: [address] [place] [address] Performed By: #### 5 7021-8 ####[facility] [id number] [place] [address] [place] Lymphocytes/100 WBC (Bld) 21.3 % Normal [facility] Comment on above: Order Comment: Speci men Type: BLOOD SPECIMENOrdering Facility: [facility] Address: [address] [place] [address] Performed By: #### 5 7021-8 ####[facility]CL[facility] [id number] [place] [address] [place] MCH (RBC) [Entitic mass] 29.5 pg Normal 26.0-34.0 [facility] Comment on above: Order Comment: Speci men Type: BLOOD SPECIMENOrdering Facility: [facility] Address: [address] [place] [address] Performed By: #### 5 7021-8 ####[facility]IA [id number] [place] [address] [place] MCHC (RBC) [Mass/Vol] 32.4 g/dL Normal 30.5-36.0 [facility] Comment on above: Order Comment: Speci men Type: BLOOD SPECIMENOrdering Facility: [facility] Address: [address] [place] [address] Performed By: #### 5 7021-8 ####[facility]IA [id number] [place] [address] [place] MCV (RBC) [Entitic vol] 90.9 fL Normal 80.0-100.[address] [facility] Comment on above: Order Comment: Speci men Type: BLOOD SPECIMENOrdering Facility: [facility] Address: [address] [place] [address] Performed By: #### 5 7021-8 ####[facility] [id number] [place] [address] [place] Monocytes (Bld) [#/Vol] 0.70 10*3/uL Normal <0.87 [facility] Comment on above: Order Comment: Speci men Type: BLOOD SPECIMENOrdering Facility: [facility] Address: [address] [place] [address] Performed By: #### 5 7021-8 ####[facility] [id number] [place] [address] [place] Monocytes/100 WBC (Bld) 9.7 % Normal [facility] Comment on above: Order Comment: Speci men Type: BLOOD SPECIMENOrdering Facility: [facility] Address: [address] [place] [address] Performed By: #### 5 7021-8 ####[facility] [id number] [place] [address] [place] Neutrophils (Bld) [#/Vol] 4.90 10*3/uL Normal 1.45-7.50 [facility] Comment on above: Order Comment: Speci men Type: BLOOD SPECIMENOrdering Facility: [facility] Address: [address] [place] [address] Performed By: #### 5 7021-8 ####[facility] [id number] [place] [address] [place] Neutrophils/100 WBC (Bld) 68.3 % Normal [facility] Comment on above: Order Comment: Speci men Type: BLOOD SPECIMENOrdering Facility: [facility] Address: [address] [place] [address] Performed By: #### 5 7021-8 ####[facility] [id number] [place] [address] [place] Nucleated RBC (Bld) [#/Vol] 10*3/uL Normal <0.01 [facility] Comment on above: Order Comment: Speci men Type: BLOOD SPECIMENOrdering Facility: [facility] Address: [address] [place] [address] Performed By: #### 5 7021-8 ####[facility] [id number] [place] [address] [place] Nucleated RBC/100 WBC (Bld) [Ratio] 0.0 /100 WBC Normal [facility] Comment on above: Order Comment: Speci men Type: BLOOD SPECIMENOrdering Facility: [facility] Address: [address] [place] [address] Performed By: #### 5 7021-8 ####[facility] [id number] [place] [address] [place] Platelet mean volume (Bld) [Entitic vol] 11.6 fL Normal 9.0-12.7 [facility] Comment on above: Order Comment: Speci men Type: BLOOD SPECIMENOrdering Facility: [facility] Address: [address] [place] [address] Performed By: #### 5 7021-8 ####[facility] [id number] [place] [address] [place] Platelets (Bld) [#/Vol] 297 10*3/uL Normal 150-400 [facility] Comment on above: Order Comment: Speci men Type: BLOOD SPECIMENOrdering Facility: [facility] Address: [address] [place] [address] Performed By: #### 5 7021-8 ####[facility] [id number] [place] [address] [place] RBC (Bld) [#/Vol] 4.07 10*6/uL Normal 3.90-5.20 [facility] Comment on above: Order Comment: Speci men Type: BLOOD SPECIMENOrdering Facility: [facility] Address: [address] [place] [address] Performed By: #### 5 7021-8 ####[facility] [id number] [place] [address] [place] WBC (Bld) [#/Vol] 7.18 10*3/uL Normal 3.70-11.00 [facility] Comment on above: Order Comment: Speci men Type: BLOOD SPECIMENOrdering Facility: [facility] Address: [address] [place] [address] Performed By: #### 5 7021-8 ####[facility]CL[facility] [id number] DENISELaura [place] [id number] [place] [id number] [facility] CNOVon 12-25-2024 CNOV Office Visit (FAMPWS ) JESSICA LAZCANO ([id number]) 1950 F Date Time Provider Department 12/25/24 11:00 AM RADHA ZAMORA During your visit today, we recorded the following information about you: Pulse Respiration Blood pressure Weight 51/minute 18/minute 118/66 68.9 kg Radha Zamora 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 HTN: Patient is compliant with meds Yes Monitors bp at home: occasionally . Denies side effects: Yes. Chest pain: No. Dyspnea: No. Edema: very little . Palpitations: No. Syncope: No. Headache: No. Dizziness: No. HX of CVA: No recurrent symptoms. Taking medications as prescribed without side effects. Walking with cane for some residual right sided weakness but does note improvement in shoulder mobility. Ambulates with cane. No falls Needs letter for change of mail box to same side of road. Reports her mailbox sits on a curve. 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 Patient reports trucks come around curve quickly and she is afraid she will not be able to move quick enough if necessary. Reports she almost got it not too long ago as there is really no area around she can step to the side if traffic is oncoming Was seen in hospital in August and was to have an outpatient heart monitor due to atrial flutter. Has not competed as of yet. Taking [employer] duet to [place] was too expensive. Has been in contact with cardiology regarding the heart monitor. Has not completed HSA yet. Patient unsure if insurance will cover.Admits to daytime drowsiness Did not complete repeat CT of chest recommended. Hospitalized in August for pneumonia and it was recommend she repeat the CT in 8 weeks. Denies fevers, chills, SOB, dyspnea, wheezing or cough PAST MEDICAL HISTORY Diagnosis Date Adjustment disorder with depressed mood Anxiety Atypical atrial flutter (HCC) 08/16/2024 By EKG from [facility] at 188 bpm with intermittent right bundle branch aberrancy. BMI 32.0-32.9,adult 08/17/2024 Carotid stenosis, bilateral 05/30/2023 40-59% Coronary artery vasospasm (HCC) 2001 By cardiac catheterization at [facility] 2001. No obstructive disease at that time. Treated chronically with amlodipine 10 mg daily. CVA (cerebral vascular accident) ([facility]) 02/2023 H/O cardiac catheterization 2001 At [facility]. No evidence of significant coronary disease. Thought to have coronary artery vasospasm. H/O echocardiogram 06/14/2010 Exercise stress echo at [facility]. EF 60%. Trivial MR and TR. No evidence of ischemia after 6 minutes of exercise and a heart rate of 153 bpm (93% of age-predicted maximum). History of endometriosis History of melanoma 10/15/2014 HLD (hyperlipidemia) HTN (hypertension) Hx of echocardiogram 02/2023 Transthoracic echocardiogram at [facility]. Normal heart function per patient report. Osteoporosis 06/12/2023 Other and unspecified hyperlipidemia Overweight (BMI 25.0-29.9) Right sided weakness ALLERGIES Lipitor [Atorvastatin] and Macrobid [Nitrofurantoin Monohyd/M-Cryst] MEDICATIONS Current Outpatient Medications Medication Sig metoprolol tartrate 75 mg tab Take 1 tablet by mouth every 12 hours. colchicine 0.6 mg tablet Take 1 tablet by mouth once daily. dabigatran etexilate (PRADAXA) 150 mg Take 1 capsule by mouth twice daily rosuvastatin (CRESTOR) 20 mg tablet Take 1 tablet by mouth daily at bedtime. amLODIPine (NORVASC) 10 mg tablet Take 1 tablet by mouth once daily. busPIRone (BUSPAR) 5 mg tablet Take 1 tablet by mouth two times a day. famotidine (PEPCID) 20 mg tablet Take 20 mg by mouth two times a day. lisinopril (ZESTRIL) 5 mg tablet Take 1 tablet by mouth every 12 hours. traZODone (DESYREL) 50 mg tablet Take 1 tablet by mouth daily at bedtime. alendronate (FOSAMAX) 70 mg tablet Take 1 tablet by mouth one time a week. Take with a full glass of water, on an empty stomach; do NOT lie down for 30minutes. diphenhydrAMINE (BENADRYL) 25 mg capsule Take 25 mg by mouth every 6 hours as needed. aspirin, enteric coated (ASPIRIN, ENTERIC COATED) 81 mg EC tablet Take 1 tablet by mouth once daily. No current facility-administered medications for this visit. Medications and allergies reviewed by this provider. SOCIAL HISTORY Social History Tobacco Use Smoking status: Never Smokeless tobacco: Never Substance Use Topics Alcohol use: Not Currently Comment: less than monthly; never heavy or daily drinker. Drug use: Never REVIEW OF SYSTEMS All other reviewed and negative other than HPI. OBJECTIVE: BP 118/66 Pulse (!) 51 Resp 18 Wt 68.9 kg (151 lb 14.4 oz) Sp (more content not included)... Normal [facility] Comprehensive metabolic 2000 panelon 12-25-2024 Albumin [Mass/Vol] 4.8 g/dL Normal 3.9-4.9 [facility] Comment on above: Order Comment: Speci men Type: BLOOD SPECIMENOrdering Facility: [facility] Address: [address] [place] [address] Performed By: #### 2 4323-8 ####[facility] [id number] [place] [address] [place] ALP [Catalytic activity/Vol] 41 U/L Normal 34-123 [facility] Comment on above: Order Comment: Speci men Type: BLOOD SPECIMENOrdering Facility: [facility] Address: [address] [place] [id number] Performed By: #### 2 4323-8 ####[facility] [id number] [place] [address] [place] ALT [Catalytic activity/Vol] 14 U/L Normal 7-38 [facility] Comment on above: Order Comment: Speci men Type: BLOOD SPECIMENOrdering Facility: [facility] Address: [address] [place] [address] Performed By: #### 2 4323-8 ####[facility] [id number] [place] [address] [place] Anion gap [Moles/Vol] 8 mmol/L Normal 8-15 [facility] Comment on above: Order Comment: Speci men Type: BLOOD SPECIMENOrdering Facility: [facility] Address: [address] [place] [address] Performed By: #### 2 4323-8 ####[facility] [id number] [place] [address] [place] AST [Catalytic activity/Vol] 19 U/L Normal 13-35 [facility] Comment on above: Order Comment: Speci men Type: BLOOD SPECIMENOrdering Facility: [facility] Address: [address] [id number] Performed By: #### 2 4323-8 ####[facility] [id number] [place] [id number] [place] Bilirubin [Mass/Vol] 0.3 mg/dL Normal 0.2-1.3 [facility] Comment on above: Order Comment: Speci men Type: BLOOD SPECIMENOrdering Facility: [facility] Address: [address] [id number] Performed By: #### 2 4323-8 ####[facility] [id number] [address] [address] [id number] [address] [place] Calcium [Mass/Vol] 10.1 mg/dL Normal 8.5-10.2 [facility] Comment on above: Order Comment: Speci men Type: BLOOD SPECIMENOrdering Facility: [facility] Address: [address] [place] [address] Performed By: #### 2 4323-8 ####[facility]CL[facility] [id number] [place] [address] [place] Chloride [Moles/Vol] 106 mmol/L Normal 98-107 [facility] Comment on above: Order Comment: Speci men Type: BLOOD SPECIMENOrdering Facility: [facility] Address: [address] [place] [address] Performed By: #### 2 4323-8 ####[facility] [id number] [place] [address] [place] CO2 [Moles/Vol] 28 mmol/L Normal 22-30 [facility] Comment on above: Order Comment: Speci men Type: BLOOD SPECIMENOrdering Facility: [facility] Address: [address] [place] [address] Performed By: #### 2 4323-8 ####[facility] [id number] [place] [address] [place] Creatinine [Mass/Vol] 0.92 mg/dL Normal 0.58-0.96 [facility] Comment on above: Order Comment: Speci men Type: BLOOD SPECIMENOrdering Facility: [facility] Address: [address] [place] [address] Performed By: #### 2 4323-8 ####[facility] [id number] [place] [address] [place] Creatinine and Glomerular filtration rate.predicted panel (S/P/Bld) 67 mL/min/1.73m??? Normal >=60 [facility] Comment on above: Order Comment: Speci men Type: BLOOD SPECIMENOrdering Facility: [facility] Address: [address] [place] [address] Result Comment: Sameera mated Glomerular Filtration Rate (eGFR) is calculated using the 2020 CKD-EPI creatinine equation. This equation utilizes serum creatinine, sex, and age as parameters. The creatinine assay has traceable calibration to isotope dilution-mass spectrometry. Refer to KDIGO guidelines for clinical interpretation. In patients with unstable renal function, e.g. those with acute kidney injury, the eGFR may not accurately reflect actual GFR. Performed By: #### 2 4323-8 ####[facility] [id number] [place] [address] [place] Glucose [Mass/Vol] 123 mg/dL High 74-99 [facility] Comment on above: Order Comment: Stacey goldman Type: BLOOD SPECIMENOrdering Facility: [facility] Address: [address] [place] [address] Result Comment: The [place] Diabetes Association (ADA) provides guidance for cutoff values for fasting glucose and random glucose. The ADA defines fasting as no caloric intake for at least 8 hours. Fasting plasma glucose results between 100 to 125 mg/dL indicate increased risk for diabetes (prediabetes). Fasting plasma glucose results greater than or equal to 126 mg/dL meet the criteria for diagnosis of diabetes. In the absence of unequivocal hyperglycemia, results should be confirmed by repeat testing. In a patient with classic symptoms of hyperglycemia or hyperglycemic crisis, random plasma glucose results greater than or equal to 200 mg/dL meet the criteria for diagnosis of diabetes. Reference: Standards of Medical Care in Diabetes 2016, [place] Diabetes Association. Diabetes Care. 2016.39(Suppl 1). Performed By: #### 2 4323-8 ####[facility] [id number] [place] [address] [place] Potassium [Moles/Vol] 4.6 mmol/L Normal 3.7-5.1 [facility] Comment on above: Order Comment: Stcaey goldman Type: BLOOD SPECIMENOrdering Facility: [facility] Address: [address] [place] [address] Performed By: #### 2 4323-8 ####[facility] [id number] [place] [address] [place] Protein [Mass/Vol] 7.0 g/dL Normal 6.3-8.0 [facility] Comment on above: Order Comment: Speci men Type: BLOOD SPECIMENOrdering Facility: [facility] Address: [address] [place] [address] Performed By: #### 2 4323-8 ####[facility] [id number] [place] [address] [place] Sodium [Moles/Vol] 142 mmol/L Normal 136-144 [facility] Comment on above: Order Comment: Speci men Type: BLOOD SPECIMENOrdering Facility: [facility] Address: [address] [place] [address] Performed By: #### 2 4323-8 ####[facility] [id number] [place] [address] [place] Urea nitrogen [Mass/Vol] 12 mg/dL Normal 7-21 [facility] Comment on above: Order Comment: Speci men Type: BLOOD SPECIMENOrdering Facility: [facility] Address: [address] [place] [address] Performed By: #### 2 4323-8 ####[facility] [id number] [place] [address] [place] CNPMarilee 12-09-2024 CNPN Telephone ([facility]) JESSICA LAZCANO ([id number]) 1950 F Date Time Provider Department 12/09/24 TOMASZ YANG [facility] During your visit today, we recorded the following information about you: Clotilde Lopez MA 12/09/2024 1:53 PM Signed Left voicemail for patient to return call. We enrolled and mailed monitor to patient but there is no history or end of summary report on [employer]. So I just need to find out if she got the monitor, if she wore it, if she sent it back or what happened? Clotilde Lopez MA 12/12/2024 3:02 PM Signed Spoke with patient, she still had the original monitor at her house. She had never opened the box. She had planned on putting it on this week because her family really was getting on her case about wearing it. I hung up and called [employer], they said to just have her send the original monitor back and I would need to re-enroll her in another monitor if that is what she wanted to do. I called the patient to let her know and had to leave a message for her to return the call. Allergies As of Date: 12/09/2024 Noted Allergy Reaction LIPITOR (ATORVASTATIN) 03/13/2023 4 - Hives MACROBID (NITROFURANTOIN MONOHYD/*08/17/2024 5 - Intolerance Comments: Patient had dizziness, nausea, ventricular tachycardia while taking this med Date Reviewed: 09/02/2024 Reviewed by: Elisabeth Solares LPN - Fully Assessed Prescriptions as of 12/12/2024 - metoprolol tartrate 75 mg tab Take 1 tablet by mouth every 12 hours. - colchicine 0.6 mg tablet Take 1 tablet by mouth once daily. - dabigatran etexilate (PRADAXA) 150 mg Take 1 capsule by mouth twice daily - rosuvastatin (CRESTOR) 20 mg tablet Take 1 tablet by mouth daily at bedtime. - amLODIPine (NORVASC) 10 mg tablet Take 1 tablet by mouth once daily. - busPIRone (BUSPAR) 5 mg tablet Take 1 tablet by mouth two times a day. - famotidine (PEPCID) 20 mg tablet Take 20 mg by mouth two times a day. - lisinopril (ZESTRIL) 5 mg tablet Take 1 tablet by mouth every 12 hours. - traZODone (DESYREL) 50 mg tablet Take 1 tablet by mouth daily at bedtime. - alendronate (FOSAMAX) 70 mg tablet Take 1 tablet by mouth one time a week. Take with a full glass of water, on an empty stomach; do NOT lie down for 30minutes. - diphenhydrAMINE (BENADRYL) 25 mg capsule Take 25 mg by mouth every 6 hours as needed. - aspirin, enteric coated (ASPIRIN, ENTERIC COATED) 81 mg EC tablet Take 1 tablet by mouth once daily. Meds Comments as of 12/23/2017: Only taking Tessalon perle And Mucinex (last dose this morning) 2-3 S. Joe Problem List As Of Date 12/09/2024 Noted Resolved ADJUSTMENT DISORDER WITH DEPRESSED MOOD [F43.21] HYPERLIPIDEMIA NEC/NOS [E78.5] Other and unspecified angina pectoris [I20.9] 08/01/2007 03/14/2023 TM JOINT DISORDER, UNSPEC [M26.609] 06/12/2008 ROTATOR CUFF SYND NOS [M71.9, M67.919] 06/27/2009 Major Depressive Disorder [F32.9] 03/31/2010 Essential Hypertension, Benign [I10] 06/07/2010 Obesity [E66.9] 12/11/2012 History of melanoma [Z85.820] 10/15/2014 Right hemiparesis (HCC) [G81.91] 03/14/2023 Cerebrovascular accident (CVA) (HCC) [I63.9] 04/07/2023 Anxiety [F41.9] 05/15/2023 Overweight (BMI 25.0-29.9) [E66.3] 05/15/2023 Paroxysmal ventricular tachycardia (HCC) [I47.2*08/16/2024 Obesity, Class I, BMI 30-34.9 [E66.811] 08/16/2024 Encounter Status:Closed by CLOTILDE LOPEZ on 12/12/24 [facility] 09-16-2024 [facility]N [facility] JESSICA LAZCANO ([id number]) 1950 F Date Time Provider Department 09/16/24 [facility] During your visit today, we recorded the following information about you: Clotilde Lopez MA 09/16/2024 3:35 PM Signed Patient was enrolled in [employer] and will have a 30 day event monitor mailed to her. Allergies As of Date: 09/16/2024 Noted Allergy Reaction LIPITOR (ATORVASTATIN) 03/13/2023 4 - Hives MACROBID (NITROFURANTOIN MONOHYD/*08/17/2024 5 - Intolerance Comments: Patient had dizziness, nausea, ventricular tachycardia while taking this med Date Reviewed: 09/02/2024 Reviewed by: Elisabeth Solares LPN - Fully Assessed Reason for Visit: Orders [681] Primary Visit Diagnosis:Paroxysmal ventricular tachycardia (HCC) [I47.29] Order(s):OUTSIDE VENDOR CARDIAC OUTPATIENT TELEMETRY [[id number]] Order #: [id number]: 1 Prescriptions as of 09/16/2024 - famotidine (PEPCID) 20 mg tablet Take 20 mg by mouth two times a day. - dabigatran etexilate (PRADAXA) 150 mg Take 1 capsule by mouth two times a day. - metoprolol tartrate, short acting, 75 mg tab Take 1 tablet by mouth every 12 hours. - lisinopril (ZESTRIL) 5 mg tablet Take 1 tablet by mouth every 12 hours. - colchicine 0.6 mg tablet Take 1 tablet by mouth once daily. - traZODone (DESYREL) 50 mg tablet Take 1 tablet by mouth daily at bedtime. - alendronate (FOSAMAX) 70 mg tablet Take 1 tablet by mouth one time a week. Take with a full glass of water, on an empty stomach; do NOT lie down for 30minutes. - amLODIPine (NORVASC) 10 mg tablet Take 1 tablet by mouth once daily. - rosuvastatin (CRESTOR) 20 mg tablet Take 1 tablet by mouth daily at bedtime. - busPIRone (BUSPAR) 5 mg tablet Take 1 tablet by mouth two times a day. - diphenhydrAMINE (BENADRYL) 25 mg capsule Take 25 mg by mouth every 6 hours as needed. - aspirin, enteric coated (ASPIRIN, ENTERIC COATED) 81 mg EC tablet Take 1 tablet by mouth once daily. Meds Comments as of 12/23/2017: Only taking Tessalon perle And Mucinex (last dose this morning) 2-3 S. Joe Problem List As Of Date 09/16/2024 Noted Resolved ADJUSTMENT DISORDER WITH DEPRESSED MOOD [F43.21] HYPERLIPIDEMIA NEC/NOS [E78.5] Other and unspecified angina pectoris [I20.9] 08/01/2007 03/14/2023 TM JOINT DISORDER, UNSPEC [M26.609] 06/12/2008 ROTATOR CUFF SYND NOS [M71.9, M67.919] 06/27/2009 Major Depressive Disorder [F32.9] 03/31/2010 Essential Hypertension, Benign [I10] 06/07/2010 Obesity [E66.9] 12/11/2012 History of melanoma [Z85.820] 10/15/2014 Right hemiparesis (HCC) [G81.91] 03/14/2023 Cerebrovascular accident (CVA) (HCC) [I63.9] 04/07/2023 Anxiety [F41.9] 05/15/2023 Overweight (BMI 25.0-29.9) [E66.3] 05/15/2023 Paroxysmal ventricular tachycardia (HCC) [I47.2*08/16/2024 Obesity, Class I, BMI 30-34.9 [E66.811] 08/16/2024 Encounter Status:Closed by CLOTILDE LOPEZ on 09/16/24 [facility] 09-10-2024 KANGN Telephone ([facility]) JESSICA LAZCANO ([id number]) 1950 F Date Time Provider Department 09/10/24 PODLOGARRADHA During your visit today, we recorded the following information about you: Mary Jane Metz LPN 09/10/2024 12:58 PM Signed Patient calling she was in [facility] late morning today and left patient assistance forms for Suzanne. She was told placed in mailbox. She completed all that she was to do. She said she put sticky note on page that provider needs to complete. Radha Zamora APRN.CNP 09/11/2024 9:36 AM Signed I do not have any papers. Radha Zamora APRN.Radha Hernandez APRN.CNP 09/11/2024 12:06 PM Signed Form completed. Please take to medical records so she can apple picker. In my out box. Please call patient and let her know. SUSAN Price Michelle, LPN 09/11/2024 7:07 PM Signed Paperwork faxed to [employer] patient assistance at [phone] Elisabeth Solares LPN 09/17/2024 8:23 AM Addendum Fax received from [employer] stating they needed additional information. Call placed to patient and went over paperwork. Everything included and faxed back to [employer]. Elisabeth Solares LPN Allergies As of Date: 09/10/2024 Noted Allergy Reaction LIPITOR (ATORVASTATIN) 03/13/2023 4 - Hives MACROBID (NITROFURANTOIN MONOHYD/*08/17/2024 5 - Intolerance Comments: Patient had dizziness, nausea, ventricular tachycardia while taking this med Date Reviewed: 09/02/2024 Reviewed by: Elisabeth Solares LPN - Fully Assessed Reason for Visit: left forms placed in mailbox [Other] Prescriptions as of 10/19/2024 - colchicine 0.6 mg tablet Take 1 tablet by mouth once daily. - rosuvastatin (CRESTOR) 20 mg tablet Take 1 tablet by mouth daily at bedtime. - amLODIPine (NORVASC) 10 mg tablet Take 1 tablet by mouth once daily. - busPIRone (BUSPAR) 5 mg tablet Take 1 tablet by mouth two times a day. - metoprolol tartrate 75 mg tab Take 1 tablet by mouth every 12 hours. - famotidine (PEPCID) 20 mg tablet Take 20 mg by mouth two times a day. - dabigatran etexilate (PRADAXA) 150 mg Take 1 capsule by mouth two times a day. - lisinopril (ZESTRIL) 5 mg tablet Take 1 tablet by mouth every 12 hours. - traZODone (DESYREL) 50 mg tablet Take 1 tablet by mouth daily at bedtime. - alendronate (FOSAMAX) 70 mg tablet Take 1 tablet by mouth one time a week. Take with a full glass of water, on an empty stomach; do NOT lie down for 30minutes. - diphenhydrAMINE (BENADRYL) 25 mg capsule Take 25 mg by mouth every 6 hours as needed. - aspirin, enteric coated (ASPIRIN, ENTERIC COATED) 81 mg EC tablet Take 1 tablet by mouth once daily. Meds Comments as of 12/23/2017: Only taking Tessalon perle And Mucinex (last dose this morning) 2-3 S. Joe Problem List As Of Date 09/10/2024 Noted Resolved ADJUSTMENT DISORDER WITH DEPRESSED MOOD [F43.21] HYPERLIPIDEMIA NEC/NOS [E78.5] Other and unspecified angina pectoris [I20.9] 08/01/2007 03/14/2023 TM JOINT DISORDER, UNSPEC [M26.609] 06/12/2008 ROTATOR CUFF SYND NOS [M71.9, M67.919] 06/27/2009 Major Depressive Disorder [F32.9] 03/31/2010 Essential Hypertension, Benign [I10] 06/07/2010 Obesity [E66.9] 12/11/2012 History of melanoma [Z85.820] 10/15/2014 Right hemiparesis (HCC) [G81.91] 03/14/2023 Cerebrovascular accident (CVA) (HCC) [I63.9] 04/07/2023 Anxiety [F41.9] 05/15/2023 Overweight (BMI 25.0-29.9) [E66.3] 05/15/2023 Paroxysmal ventricular tachycardia (HCC) [I47.2*08/16/2024 Obesity, Class I, BMI 30-34.9 [E66.811] 08/16/2024 Encounter Status:Closed by MARY JANE METZ on 10/19/24 [facility] Madeleine 09-09-2024 SANG Telephone ([facility]) JALEESAJESSICA ([id number]) 1950 F Date Time Provider Department 09/09/24 CECI VERA INTMWS During your visit today, we recorded the following information about you: Antonieta Puentes LPN 09/09/2024 11:53 AM Signed Patient calling stating that fumigator and sterilizer from [facility] placed patient on Eliquis. This medication is too expensive $560 a month and then the alternative is $533 and the last alternative is too new and is not even on patient's formulary. Patient is needing another option other than these. Patient also applied for assistance with the drug company , but in the meantime patient needs a medication. Patient is calling her fumigator and sterilizer at [facility] as well to ask what is the next step she can do since these are too expensive. Please review and advise further if there is anything else we can do for her. IVETT Rojas Julie, APRN.KANG 09/09/2024 12:24 PM Signed If she can not afford the Eliquis will need to start Coumadin. Would likely need to be bridged with an injectable until her blood level reflects her level is therapeutic. If cardiology not wanting to do this we will need to. Radha Zamora, BRANNON.Cayla Mast, NICK 09/09/2024 1:29 PM Signed Pt states she is trying to go through the [employer] assistance program. She said she is filling out the paperwork and bring it into Dr Vera's office tomorrow to finish filling and get it faxes in. Pt states she hasn't hear back from the Chemical Plant Worker yet. She said they had talked about the Coumadin at the beginning, and said they have the [facility], but she lives in [place]. I told her we do have a Coumadin clinic in [place]. Pt was wanting to know if the Coumadin was something that she could take until she could get the Eliquis figured out. I told her with the Coumadin she would need to get her INR drawn and bridge with and injectable, so I don't know if they would just put her on it for a short period of time. Pt was then asking if she really even needed to be on a blood thinner, she said she was fine until she started taking the one medication that can cause heart issues then the bottom fell out. I told her with A flutter you typically have to be on a blood thinner because you can throw a blood clot. Pt said she knows, but she never had any issues with this before. I told her that would be something she would need to talk with her providers about. China Dudley LPN 09/09/2024 2:56 PM Signed Pt calls back to report she spoke to fumigator and sterilizer Dr. Bertrand. Pt reports she will run out of Eliquis on Sunday 09/16 and will start on Pradaxa 150 mg bid on 09/17. Pt reports she will still bring in paperwork for [facility] for pt assistance since the goal is to get pt on Eliquis. IVETT Joseph Julie, APRN.CNP 09/09/2024 3:48 PM Signed So cardiology is putting her on Pradaxa in the interim? SUSAN Price Amanda, RN 09/09/2024 4:45 PM Signed Pt called and is notified of providers message. Pt voices understanding. She states that yes Cardiology is having her go on the Pradaxa 150 BID in the interim while trying to get accepted into the [facility] assistance program. She states sh called the pharmacy and they reported they will have it in stock in 1-2 days. She states the Chemical Plant Worker called her back to make sure she finishes the Eliquis completely before staring the Pradaxa. NICK Arana Julie, APRN.CNP 09/10/2024 7:12 AM Signed Reviewed. Rdaha Zamora APRN.CNP Allergies As of Date: 09/09/2024 Noted Allergy Reaction LIPITOR (ATORVASTATIN) 03/13/2023 4 - Hives MACROBID (NITROFURANTOIN MONOHYD/*08/17/2024 5 - Intolerance Comments: Patient had dizziness, nausea, ventricular tachycardia while taking this med Date Reviewed: 09/02/2024 Reviewed by: Elisabeth Solares LPN - Fully Assessed Reason for Visit: Medication Problem [65] Prescriptions as of 09/10/2024 - dabigatran etexilate (PRADAXA) 150 mg Take 1 capsule by mouth two times a day. - metoprolol tartrate, short acting, 75 mg tab Take 1 tablet by mouth every 12 hours. - lisinopril (ZESTRIL) 5 mg tablet Take 1 tablet by mouth every 12 hours. - colchicine 0.6 mg tablet Take 1 tablet by mouth once daily. - traZODone (DESYREL) 50 mg tablet Take 1 tablet by mouth daily at bedtime. - alendronate (FOSAMAX) 70 mg tablet Take 1 tablet by mouth one time a week. Take with a full glass of water, on an empty stomach; do NOT lie down for 30minutes. - amLODIPine (NORVASC) 10 mg tablet Take 1 tablet by mouth once daily. - rosuvastatin (CRESTOR) 20 mg tablet Take 1 tablet by mouth daily at bedtime. - busPIRone (BUSPAR) 5 mg tablet Take 1 tablet by mouth two times a day. - diphenhydrAMINE (BENADRYL) 25 mg capsule Take 25 mg by mouth ever (more content not included)... [facility] Office Visit (STEPHANIEWS ) JESSICA LAZCANO ([id number]) 1950 F Date Time Provider Department 09/02/24 12:00 PM ORVILLELOGRADHA CARTAGENA During your visit today, we recorded the following information about you: Pulse Respiration Blood pressure Weight 57/minute 18/minute 114/66 71 kg Radha Zamora APRN.CNP 09/02/2024 2:00 PM Signed 09/02/2024 Patient presents with: Hospital F/U: [facility] ER 08/16- Transferred to [facility] 08/16-08/19 SUBJECTIVE: This is a 73 year old, accompanied by daughter that is here today for Above Complaints. HOSPITAL/ER FOLLOW UP: Reason for visit: weakness, fatigue and presyncope Which facility: [facility] Date of visit: 08/16/2024-08/19/2024 Diagnosis: atrial flutter, pneumonia Testing done: ECHO stress test, CXR, CT chest, blood work, blood cultures, UA, US KUB Treatment given: IV amiodarone started on Metoprolol tartrate 75 mg and Eliquis, lisinopril changed to 5 mg BID Discharged on Augmentin and recommend follow-up CT in 8 weeks and follow-up with cardiology. Completed Augmentin without difficulty.Patient reports she spoke with cardiologists office, Lonnie Garza about getting an event monitor and they will mail out to her. Denies bleeding symptoms, fevers, chills, SOB, dyspnea, cough, wheezing, chest pain, palpitations or leg swelling Hospital course reviewed PAST MEDICAL HISTORY Diagnosis Date Adjustment disorder with depressed mood Anxiety Atypical atrial flutter (HCC) 08/16/2024 By EKG from [facility] at 188 bpm with intermittent right bundle branch aberrancy. BMI 32.0-32.9,adult 08/17/2024 Carotid stenosis, bilateral 05/30/2023 40-59% Coronary artery vasospasm (HCC) 2001 By cardiac catheterization at [facility] 2001. No obstructive disease at that time. Treated chronically with amlodipine 10 mg daily. CVA (cerebral vascular accident) (HCC) 02/2023 H/O cardiac catheterization 2001 At [facility]. No evidence of significant coronary disease. Thought to have coronary artery vasospasm. H/O echocardiogram 06/14/2010 Exercise stress echo at [facility]. EF 60%. Trivial MR and TR. No evidence of ischemia after 6 minutes of exercise and a heart rate of 153 bpm (93% of age-predicted maximum). History of endometriosis History of melanoma 10/15/2014 HLD (hyperlipidemia) HTN (hypertension) Hx of echocardiogram 02/2023 Transthoracic echocardiogram at [facility]. Normal heart function per patient report. Osteoporosis 06/12/2023 Other and unspecified hyperlipidemia Overweight (BMI 25.0-29.9) Right sided weakness ALLERGIES Lipitor [Atorvastatin] MEDICATIONS Current Outpatient Medications Medication Sig metoprolol tartrate, short acting, 75 mg tab Take 1 tablet by mouth every 12 hours. apixaban (ELIQUIS) 5 mg tab(s) Take 1 tablet by mouth two times a day. lisinopril (ZESTRIL) 5 mg tablet Take 1 tablet by mouth every 12 hours. colchicine 0.6 mg tablet Take 1 tablet by mouth once daily. traZODone (DESYREL) 50 mg tablet Take 1 tablet by mouth daily at bedtime. alendronate (FOSAMAX) 70 mg tablet Take 1 tablet by mouth one time a week. Take with a full glass of water, on an empty stomach; do NOT lie down for 30minutes. amLODIPine (NORVASC) 10 mg tablet Take 1 tablet by mouth once daily. rosuvastatin (CRESTOR) 20 mg tablet Take 1 tablet by mouth daily at bedtime. busPIRone (BUSPAR) 5 mg tablet Take 1 tablet by mouth two times a day. diphenhydrAMINE (BENADRYL) 25 mg capsule Take 25 mg by mouth every 6 hours as needed. aspirin, enteric coated (ASPIRIN, ENTERIC COATED) 81 mg EC tablet Take 1 tablet by mouth once daily. No current facility-administered medications for this visit. Medications and allergies reviewed by this provider. SOCIAL HISTORY Social History Tobacco Use Smoking status: Never Smokeless tobacco: Never Substance Use Topics Alcohol use: Not Currently Comment: less than monthly; never heavy or daily drinker. Drug use: Never REVIEW OF SYSTEMS All other reviewed and negative other than HPI. OBJECTIVE: BP 114/66 Pulse (!) 57 Resp 18 Wt 71 kg (156 lb 9.6 oz) SpO2 98% BMI 25.28 kg/m? . Vital signs reviewed by this provider. APPEARANCE Well appearing, alert, in no acute distress, well-hydrated, well nourished. EYES conjunctiva and sclera normal. HEART RRR with normal S1 and S2, no murmurs, no gallops, no JVD appreciated LUNG clear to auscultation. No wheezes, rhonchi or rales EXTREMITIES Extremities normal, No deformities, No skin discoloration, and No edema SKIN Skin color, texture, turgor normal, no suspicious rashes or lesions to exposed skin Hepatitis C Screening Never done Colorectal Cancer Screening due on 04/11/2014 Advance Directive Discussion due on 11/20/2023 Mammogram Screening due on 05/18/2024 Influenza Vacc (more content not included)... [facility] JESSICA LAZCANO ([id number]) 1950 F Date Time Provider Department 09/02/24 TOMASZ YANG [facility] During your visit today, we recorded the following information about you: Winsome Elisabeth 09/02/2024 2:46 PM Signed Patient is calling and stating that she was put on Eliquis in the hospital by Dr Ba. She can't afford to get it and is trying to get PAP. She wont know before she runs out if she is approved. She is asking if there is something cheaper for her to be put on in place of that. Can you let her know Tomasz Yang, HAND ENDBAND CUTTER.[facility] 09/02/2024 2:51 PM Signed I do not know what kind of insurance she has but the only thing she can take that is going to be cheapest Coumadin. She can call her insurance and see if Xarelto 20 mg daily or Pradaxa 150 mg twice a day is affordable but otherwise she needs referred to the Coumadin clinic if that is what she wants to do. Tricia Elizondo MA 09/02/2024 3:13 PM Signed Pt called and notified per tomasz I do not know what kind of insurance she has but the only thing she can take that is going to be cheapest Coumadin. She can call her insurance and see if Xarelto 20 mg daily or Pradaxa 150 mg twice a day is affordable but otherwise she needs referred to the Coumadin clinic if that is what she wants to do. Pt agreeable Elisabeth Schumacher 09/09/2024 2:50 PM Addendum Patient is calling and asking for us to call her in a script for Pradaxa 150 mg BID 30 day refill called into [facility]. She stated that she can get the generic of that cheaper then the other ones. And does she just take the rest of her Eliquis and then start the Pradaxa. That is till she can get the PAP done for Eliquis. Can you let her know and call that in for her Clotilde Lopez MA 09/09/2024 3:02 PM Signed Patient was notified that she can take the rest of her Eliquis then start the Pradaxa. Please sign prescription. Clotilde Lopez MA 09/09/2024 3:02 PM Signed Addended by: CLOTILDE LOPEZ on: 09/09/2024 03:02 PM Modules accepted: Orders Tomasz Yang APRN.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 ENGINEER 09/09/2024 3:05 PM Signed Addended by: TOMASZ YANG on: 09/09/2024 03:05 PM Modules accepted: Orders Allergies As of Date: 09/02/2024 Noted Allergy Reaction LIPITOR (ATORVASTATIN) 03/13/2023 4 - Hives MACROBID (NITROFURANTOIN MONOHYD/*08/17/2024 5 - Intolerance Comments: Patient had dizziness, nausea, ventricular tachycardia while taking this med Date Reviewed: 09/02/2024 Reviewed by: Elisabeth Solares LPN - Fully Assessed Reason for Visit: Medication Problem [65] Primary Visit Diagnosis:Paroxysmal ventricular tachycardia (HCC) [I47.29] Order(s):dabigatran etexilate (PRADAXA) 150 mgTake 1 capsule by mouth two times a day.Disp: 60 capsuleRfl: 1 Prescriptions as of 09/09/2024 - dabigatran etexilate (PRADAXA) 150 mg Take 1 capsule by mouth two times a day. - metoprolol tartrate, short acting, 75 mg tab Take 1 tablet by mouth every 12 hours. - lisinopril (ZESTRIL) 5 mg tablet Take 1 tablet by mouth every 12 hours. - colchicine 0.6 mg tablet Take 1 tablet by mouth once daily. - traZODone (DESYREL) 50 mg tablet Take 1 tablet by mouth daily at bedtime. - alendronate (FOSAMAX) 70 mg tablet Take 1 tablet by mouth one time a week. Take with a full glass of water, on an empty stomach; do NOT lie down for 30minutes. - amLODIPine (NORVASC) 10 mg tablet Take 1 tablet by mouth once daily. - rosuvastatin (CRESTOR) 20 mg tablet Take 1 tablet by mouth daily at bedtime. - busPIRone (BUSPAR) 5 mg tablet Take 1 tablet by mouth two times a day. - diphenhydrAMINE (BENADRYL) 25 mg capsule Take 25 mg by mouth every 6 hours as needed. - aspirin, enteric coated (ASPIRIN, ENTERIC COATED) 81 mg EC tablet Take 1 tablet by mouth once daily. Meds Comments as of 12/23/2017: Only taking Tessalon perle And Mucinex (last dose this morning) 2-3 S. Joe Problem List As Of Date 09/02/2024 Noted Resolved ADJUSTMENT DISORDER WITH DEPRESSED MOOD [F43.21] HYPERLIPIDEMIA NEC/NOS [E78.5] Other and unspecified angina pectoris [I20.9] 08/01/2007 03/14/2023 TM JOINT DISORDER, UNSPEC [M26.609] 06/12/2008 ROTATOR CUFF SYND NOS [M71.9, M67.919] 06/27/2009 Major Depressive Disorder [F32.9] 03/31/2010 Essential Hypertension, Benign [I10] 06/07/2010 Obesity [E66.9] 12/11/2012 History of melanoma [Z85.820] 10/15/2014 Right hemiparesis (HCC) [G81.91] 03/14/2023 Cerebrovascular accident (CVA) (HCC) [I63.9] 04/07/2023 Anxiety [F41.9] 05/15/2023 Overweight (BMI 25.0-29.9) [E66.3] 05/15/2023 Paroxysmal ventricular tachycardia (HCC) [I47.2*08/16/2024 Obesity, Class I, BMI 30-34.9 [E66.811] 08/16/2024 Prescriptions ordered this encounter Disp Refills Start End DABIGATRAN ETEXILATE 150 MG CAPSULE 60 c* 1 09/09/2024 Route: ORAL Sig: Take 1 capsule by mouth two times a day. Medications Discontinued During This En (more content not included)... Normal [facility] Culture, Blood (WB)on 2023 CUB Blood cultures x2 from two different sites No growth in 5 days. Normal [facility] Comment on above: Performed By: #### L 503.6005, M200.1000 #### [facility] [address] [place], [address] CBC W Auto Differential pane l (Bld)on 08-19-2024 Basophils (Bld) [#/Vol] 10*3/uL Normal <0.11 [facility] Comment on above: Order Comment: Speci men Type: BLOOD SPECIMEN Ordering Facility: [facility] Address: [address] [place] [address] Performed By: #### Farshad SHORT, 3016-3, 18608-7, 16560-2, 98779-9 #### [facility] CLIA [id number] [address] [place] [address] [place] Basophils/100 WBC (Bld) 0.1 % Normal [facility] Comment on above: Order Comment: Speci men Type: BLOOD SPECIMEN Ordering Facility: [facility] Address: [address] [place] [address] Performed By: #### Farshad SHORT, 3016-3, 54569-1, 52230-6, 84830-8 #### [facility] CLIA [id number] [address] [place] [address] [place] Differential cell count method Nom (Bld) Auto Normal [facility] Comment on above: Order Comment: Speci men Type: BLOOD SPECIMEN Ordering Facility: [facility] Address: [address] [place] [address] Performed By: #### Farshad SHORT, 3016-3, 23259-0, 77614-1, 99230-6 #### [facility] CLIA [id number] [address] [place], [place] [address] [place] Eosinophils (Bld) [#/Vol] 10*3/uL Normal <0.46 [facility] Comment on above: Order Comment: Speci men Type: BLOOD SPECIMEN Ordering Facility: [facility] Address: [address] [place] [address] Performed By: #### H NESSAP, 3016-3, 31388-4, 81767-2, 86101-0 #### [facility] CLIA [id number] [address] [place] [address] [place] Eosinophils/100 WBC (Bld) 0.0 % Normal [facility] Comment on above: Order Comment: Speci men Type: BLOOD SPECIMEN Ordering Facility: [facility] Address: [address] [place] [address] Performed By: #### H DEJA, 3016-3, 73543-9, 64697-5, 69085-7 #### [facility] CLIA [id number] [address] [place] [address] [place] Erythrocyte distribution width (RBC) [Ratio] 12.3 % Normal 11.5-15.0 [facility] Comment on above: Order Comment: Speci men Type: BLOOD SPECIMEN Ordering Facility: [facility] Address: [address] [place] [address] Performed By: #### Farshad SHORT, 3016-3, 49698-7, 15020-8, 80116-3 #### [facility] CLIA [id number] [address] [place] [address] [place] Hematocrit (Bld) [Volume fraction] 30.4 % Low 36.0-46.0 [facility] Comment on above: Order Comment: Speci men Type: BLOOD SPECIMEN Ordering Facility: [facility] Address: [address] [place] [address] Performed By: #### H NESSAP, 3016-3, 00753-0, 27937-3, 49505-7 #### [facility] CLIA [id number] [address] [place], [place] [address] [facility] [place] Hemoglobin (Bld) [Mass/Vol] 10.5 g/dL Low 11.5-15.5 [facility] Comment on above: Order Comment: Speci men Type: BLOOD SPECIMEN Ordering Facility: [facility] Address: [address] [place] [address] Performed By: #### Farshad STROP, 3016-3, 18139-6, 62895-8, 12486-6 #### [facility] CLIA [id number] [address] [place], [place] [address] [place] Immature granulocytes (Bld) [#/Vol] 0.09 10*3/uL Normal <0.10 [facility] Comment on above: Order Comment: Speci men Type: BLOOD SPECIMEN Ordering Facility: [facility] Address: [address] [place] [address] Performed By: #### Farshad NESSAP, 3016-3, 55568-4, 02555-0, 25918-4 #### [facility] CLIA [id number] [address] [place] [address] [place] Immature granulocytes/100 WBC (Bld) 0.8 % Normal [facility] Comment on above: Order Comment: Speci men Type: BLOOD SPECIMEN Ordering Facility: [facility] Address: [address] [place] [address] Performed By: #### Farshad NESSAP, 3016-3, 05468-9, 30161-1, 82971-1 #### [facility] CLIA [id number] [address] [place], [place] [address] [place] Lymphocytes (Bld) [#/Vol] 1.30 10*3/uL Normal 1.00-4.00 [facility] Comment on above: Order Comment: Speci men Type: BLOOD SPECIMEN Ordering Facility: [facility] Address: [address] [place] [address] Performed By: #### H STROP, 3016-3, 63252-9, 47674-2, 53716-1 #### [facility] CLIA [id number] [address] [place], [place] [address] [place] Lymphocytes/100 WBC (Bld) 11.3 % Normal [facility] Comment on above: Order Comment: Speci men Type: BLOOD SPECIMEN Ordering Facility: [facility] Address: [address] [place] [address] Performed By: #### H NESSAP, 3016-3, 49134-7, 41438-7, 52230-2 #### [facility] CLIA [id number] [address] [place] [address] [place] MCH (RBC) [Entitic mass] 29.4 pg Normal 26.0-34.0 [facility] Comment on above: Order Comment: Speci men Type: BLOOD SPECIMEN Ordering Facility: [facility] Address: [address] [place] [address] Performed By: #### H DEJA, 3016-3, 69685-8, 93823-8, 29100-7 #### [facility] CLIA [id number] [address] [place] [address] [place] MCHC (RBC) [Mass/Vol] 34.5 g/dL Normal 30.5-36.0 [facility] Comment on above: Order Comment: Speci men Type: BLOOD SPECIMEN Ordering Facility: [facility] Address: [address] [place] [address] Performed By: #### H DEJA, 3016-3, 83007-8, 78900-7, 58531-4 #### [facility] CLIA [id number] [address] [place] [address] [place] MCV (RBC) [Entitic vol] 85.2 fL Normal 80.0-100.0 [facility] Comment on above: Order Comment: Speci men Type: BLOOD SPECIMEN Ordering Facility: [facility] Address: [address] [place] [address] Performed By: #### H NESSAP, 3016-3, 62809-3, 44959-8, 35375-0 #### [facility] CLIA [id number] [address] [place] [address] [place] Monocytes (Bld) [#/Vol] 1.03 10*3/uL High <0.87 [facility] Comment on above: Order Comment: Speci men Type: BLOOD SPECIMEN Ordering Facility: [facility] Address: [address] [place] [address] Performed By: #### H NESSAP, 3016-3, 52154-6, 14809-5, 90311-4 #### [facility] CLIA [id number] [address] [place] [address] [place] Monocytes/100 WBC (Bld) 8.9 % Normal [facility] Comment on above: Order Comment: Speci men Type: BLOOD SPECIMEN Ordering Facility: [facility] Address: [address] [place] [address] Performed By: #### H NESSAP, 3016-3, 51800-1, 04102-3, 47062-8 #### [facility] CLIA [id number] [address] [place] [address] [place] Neutrophils (Bld) [#/Vol] 9.11 10*3/uL High 1.45-7.50 [facility] Comment on above: Order Comment: Speci men Type: BLOOD SPECIMEN Ordering Facility: [facility] Address: [address] [place] [address] Performed By: #### H NESSAP, 3016-3, 41005-9, 52963-4, 99610-0 #### [facility] CLIA [id number] [address] [place], [place] [address] [place] Neutrophils/100 WBC (Bld) 78.9 % Normal [facility] Comment on above: Order Comment: Speci men Type: BLOOD SPECIMEN Ordering Facility: [facility] Address: [address] [place] [address] Performed By: #### H STROP, 3016-3, 91244-8, 64790-5, 83321-0 #### [facility] CLIA [id number] [address] [place] [address] [place] Nucleated RBC (Bld) [#/Vol] 10*3/uL Normal <0.01 [facility] Comment on above: Order Comment: Speci men Type: BLOOD SPECIMEN Ordering Facility: [facility] Address: [address] [place] [address] Performed By: #### Farshad DEJA, 3016-3, 01868-9, 10610-5, 90903-0 #### [facility] CLIA [id number] [address] [place], [place] [address] [place] Nucleated RBC/100 WBC (Bld) [Ratio] 0.0 /100 WBC Normal [facility] Comment on above: Order Comment: Speci men Type: BLOOD SPECIMEN Ordering Facility: [facility] Address: [address] [place] [address] Performed By: #### Farshad SHORT, 3016-3, 79066-6, 49588-3, 69042-5 #### [facility] CLIA [id number] [address] [place] [address] [place] Platelet mean volume (Bld) [Entitic vol] 10.1 fL Normal 9.0-12.7 [facility] Comment on above: Order Comment: Speci men Type: BLOOD SPECIMEN Ordering Facility: [facility] Address: [address] [place] [address] Performed By: #### Farshad SHORT, 3016-3, 74477-4, 58752-1, 19917-3 #### [facility] CLIA [id number] [address] [place], [place] [address] [place] Platelets (Bld) [#/Vol] 322 10*3/uL Normal 150-400 [facility] Comment on above: Order Comment: Speci men Type: BLOOD SPECIMEN Ordering Facility: [facility] Address: [address] [place] [address] Performed By: #### Farshad SHORT, 3016-3, 62694-7, 17319-1, 38295-3 #### [facility] CLIA [id number] [address] [place] [address] [place] RBC (Bld) [#/Vol] 3.57 10*6/uL Low 3.90-5.20 [facility] Comment on above: Order Comment: Stacey goldman Type: BLOOD SPECIMEN Ordering Facility: [facility] Address: [address] [place], [place] [address] Performed By: #### H NESSAP, 3016-3, 97463-8, 35077-6, 02086-1 #### [facility] CLIA [id number] [address] [place] [address] [facility] WBC (Bld) [#/Vol] 11.54 10*3/uL High 3.70-11.00 [facility] Comment on above: Order Comment: Stacey goldman Type: BLOOD SPECIMEN Ordering Facility: [facility] Address: [address] [place], [place] [address] Performed By: #### H NESSAP, 3016-3, 66982-7, 54755-1, 14503-0 #### [facility] CLIA [id number] [address] [place], [place] [address] [facility] CNDSon 08-19-2024 CNDS HNO ID: [id number] Author: PRESTON MONTEZ MD Service: Hospital Medicine Author Type: Physician Type: Discharge Summary Filed: 08/19/2024 14:25 Note Text: DISCHARGE SUMMARY PATIENT NAME: Jessica Lazcano ADMISSION DATE: 08/16/2024 DISCHARGE DATE:08/19/2024 Attending Physician: Preston Montez MD Code Status: Full Code Highest Readmission Risk Score: 16 The 30 day readmissions risk score is derived from an internally validated risk model which evaluates patient level characteristics, utilization history, medication orders and lab results up until the day of discharge. Patients with a score of 40 or above are considered highest risk for readmission. Specific patient level drivers will be listed at the bottom of the summary. CC: weakness DX: Atrial flutter, pneumonua Operations During Hospitalization: None Procedures During Hospitalization: No procedures performed Hospital Course: 73 year old female with past medical history of obesity, anxiety, hypertension, adjustment disorder with depression, hyperlipidemia, insomnia, stroke, PACs, and bilateral carotid stenosis who initially presented to [facility] with weakness and fatigue EKG was done there and showed what was though as V tach howver EP said it is Alutter with aberrancy . Paroxysmal V. Tach _As per cardiology it was atrial flutter with aberrancy not paroxysmal V. tach. Atrial flutter with aberrancy _Cardiology history of blood EKG from outside hospital showed atrial flutter with aberrancy and currently normal sinus rhythm _Echo done and showed ejection fraction of 64% _ASH is 2.2 _ Stress test is unremarkable. _Placed on IV amiodarone however that was discontinued _Currently on metoprolol to tartrate 75 mg twice daily BP 138/65 Pulse (!) 57 Temp 37.1 ?C (98.8 ?F) (Oral) Resp 22 Ht 167.6 cm (5' 6) Wt 75.6 kg (166 lb 10.7 oz) SpO2 93% BMI 26.90 kg/m? >will be DC Toprol tartrate 75 mg twice daily along with Eliquis 5 mg twice daily. Cardiology recommended that the patient follow-up with them to have event monitor as an outpatient. Acute hypoxic respiratory failure_resolved Acute community-acquired pneumonia _Patient reported cough with some shortness of breath but no fever or chills _Required 2 L in the beginning however improved now _CT PE showed no PE but left lower lobe consolidation _Streptococcus/Legion julien are unremarkable _Continue IV ceftriaxone 2 g daily giving patient continue to improve DOS 08/17-08/19 _And to continue antibiotics for [address] scan in 8 weeks. > Will be discharged on Augmentin for 5 more days. UTI _No dysuria but increased urinary frequency _Urine analysis suggestive for UTI with too many bacteria and some WBC _Urine culture negative _ Hypokalemia _Resolved Hypophosphatemia _Phosphate is 2.83. _Will be replaced with sodium phosphate 15 mmol Hypomagnesemia _Resolved Hyperlipidemia _Continue rosuvastatin 20 mg HTN _Continue home amlodipine 10 mg, metoprolol succinate 50 mg Anxiety/depression - Continue home meds Consulting Teams During Hospitalization: Cardiology Treatment Team: Attending Provider: Preston Montez MD Consulting: Cary Ba MD Attending: MR KRISH KAT Patient Condition @ Discharge: Stable Discharge Disposition: Home with Self Care Modification to Baseline: Mentation: AAOx3 Oxygen: No Device (Cardiac): No Fistula: No Lines: No Tubes/Ostomy: none Skin/Wounds: No Urinary: No Salvador Mobility: Independent Diet: Regular Consistency: Normal Discharge Checklist: Has Sewing Department Supervisor been notified of pending discharge today: Yes Medications reconciled: Yes Follow-up appointment orders placed: Yes Does the patient have a PICC line or central line: No Discharge medications reviewed: Yes Meds to Beds used: No General: Patient is alert and oriented x3 and is in no acute respiratory distress HEENT: Normal cephalic, atraumatic, PERRLA, TM's normal, Nose clear, Mouth normal Neck: Negative hepatojugular reflux or jugular venous distention, negative carotid bruit. Lungs: Left-sided crackles Cardiac: Regular rhythm and rate, S1-S2 within normal limits, no murmurs, gallops were appreciated, no rubs. Abdomen: Soft, nontender, nondistended, no HSM detected, bowel sounds are active. Extremities: [No edema, cyanosis, or clubbing. Skin: No rashes or breakdown. Musculoskeletal: normal MS exam, moves all extremities, DTR's normal Lymphatic: Negative cervical, supra-clavicular, groin lymphadenopathy. Neurologic: Cranial nerves from II-XII intact grossly, no focal deficits. Information Provided to Patient: Primary care. DIET: Resume pre-hospital diet ACTIVITY: Resume pre-hospital activity WOUND/SURGICAL SITE CARE: None ALLERGIES Allergen Reactions Lipitor [Atorvastat* Hives Discharge Medications: Medication List START taking these medications amoxicillin-cl (more content not included)... [facility] 08-19-2024 SNAG Telephone (EMA) JESSICA LAZCANO ([id number]) 1950 F Date Time Provider Department 08/19/24 JOLENE MOCTEZUMA During your visit today, we recorded the following information about you: Jolene Moctezuma APRN.CNP 08/19/2024 2:01 PM Signed Patient will need a 30 day monitor for afib. Clotilde Lopez MA 08/19/2024 4:09 PM Signed Patient is still in the Hospital and will be notified when she gets out. Clotilde Lopez MA 08/20/2024 3:26 PM Signed Patient was notified of the Providers message in chart and is agreeable to have [employer] Monitor mailed to her. Allergies As of Date: 08/19/2024 Noted Allergy Reaction LIPITOR (ATORVASTATIN) 03/13/2023 4 - Hives Date Reviewed: 08/19/2024 Reviewed by: Jihan Perez, RN - Fully Assessed Reason for Visit: Appointment [186] Prescriptions as of 08/20/2024 - amoxicillin-clavulana te potassium (AUGMENTIN) 875-125 mg per tablet Take 1 tablet by mouth two times a day for 5 days. - benzonatate (TESSALON PERLE) 100 mg capsule Take 2 capsules by mouth three times a day as needed for cough for up to 5 days. - metoprolol tartrate, short acting, 75 mg tab Take 1 tablet by mouth every 12 hours. - apixaban (ELIQUIS) 5 mg tab(s) Take 1 tablet by mouth two times a day. - lisinopril (ZESTRIL) 5 mg tablet Take 1 tablet by mouth every 12 hours. - colchicine 0.6 mg tablet Take 1 tablet by mouth once daily. - traZODone (DESYREL) 50 mg tablet Take 1 tablet by mouth daily at bedtime. - alendronate (FOSAMAX) 70 mg tablet Take 1 tablet by mouth one time a week. Take with a full glass of water, on an empty stomach; do NOT lie down for 30minutes. - amLODIPine (NORVASC) 10 mg tablet Take 1 tablet by mouth once daily. - rosuvastatin (CRESTOR) 20 mg tablet Take 1 tablet by mouth daily at bedtime. - busPIRone (BUSPAR) 5 mg tablet Take 1 tablet by mouth two times a day. - diphenhydrAMINE (BENADRYL) 25 mg capsule Take 25 mg by mouth every 6 hours as needed. - aspirin, enteric coated (ASPIRIN, ENTERIC COATED) 81 mg EC tablet Take 1 tablet by mouth once daily. Meds Comments as of 12/23/2017: Only taking Tessalon perle And Mucinex (last dose this morning) 2-3 S. Joe Problem List As Of Date 08/19/2024 Noted Resolved ADJUSTMENT DISORDER WITH DEPRESSED MOOD [F43.21] HYPERLIPIDEMIA NEC/NOS [E78.5] Other and unspecified angina pectoris [I20.9] 08/01/2007 03/14/2023 TM JOINT DISORDER, UNSPEC [M26.609] 06/12/2008 ROTATOR CUFF SYND NOS [M71.9, M67.919] 06/27/2009 Major Depressive Disorder [F32.9] 03/31/2010 Essential Hypertension, Benign [I10] 06/07/2010 Obesity [E66.9] 12/11/2012 History of melanoma [Z85.820] 10/15/2014 Right hemiparesis (HCC) [G81.91] 03/14/2023 Cerebrovascular accident (CVA) (HCC) [I63.9] 04/07/2023 Anxiety [F41.9] 05/15/2023 Overweight (BMI 25.0-29.9) [E66.3] 05/15/2023 Paroxysmal ventricular tachycardia (HCC) [I47.2*08/16/2024 Obesity, Class I, BMI 30-34.9 [E66.811] 08/16/2024 Encounter Status:Closed by JOLENE MOCTEZUMA on 08/19/24 [facility] CRP SerPl HS-mCncon 08-19-20 CRP High sensitivity method [Mass/Vol] 136.5 mg/L High 0.0-3.0 [facility] Comment on above: Order Comment: Speci men Type: BLOOD SPECIMEN Ordering Facility: [facility] Address: [address] [place] [address] Result Comment: hsCR P < 1.0 mg/L, relative risk is low hsCRP 1.0-3.0 mg/L, relative risk is average hsCRP > 3.0 mg/L, relative risk is high Reference: Suki TA, Greg GA, Timoteo RW, et al. Markers of Inflammation and Cardiovascular Disease. Application to Clinical and Public Health Practice. A Statement for Healthcare Professionals from the Centers for Disease Control and Prevention and the [place] [employer]. Circulation 2003;107:499-511. Performed By: #### [facility], 3016-3, 27458-7, 99476-9, 94235-1 #### [facility] CLIA [id number] [address] [place], [place] [address] [place] Comprehensive metabolic 2000 panelon 08-19-2024 Albumin [Mass/Vol] 3.0 g/dL Low 3.2-5.0 [facility] Comment on above: Order Comment: Speci men Type: BLOOD SPECIMEN Ordering Facility: [facility] Address: [address] [place] [address] Performed By: #### Farshad DEJA, 3016-3, 82871-6, 19321-6, 93164-9 #### [facility] CLIA [id number] [address] [place] [address] [place] ALP [Catalytic activity/Vol] 40 U/L Low 45-117 [facility] Comment on above: Order Comment: Speci men Type: BLOOD SPECIMEN Ordering Facility: [facility] Address: [address] [place] [address] Performed By: #### Farshad DEJA, 3016-3, 79676-0, 90037-6, 81416-3 #### [facility] CLIA [id number] [address] [place] [address] [place] ALT [Catalytic activity/Vol] 24 U/L Normal 13-61 [facility] Comment on above: Order Comment: Speci men Type: BLOOD SPECIMEN Ordering Facility: [facility] Address: [address] [place] [address] Result Comment: Resu lts may be falsely depressed after the administration of Sulfasalazine and/or Sulfapyridine. Performed By: #### Farshad NESSAP, 3016-3, 11045-0, 97402-1, 01099-7 #### [facility] CLIA [id number] [address] [place], [place] [address] [place] Anion gap [Moles/Vol] 7 mmol/L Normal 5-16 [facility] Comment on above: Order Comment: Speci men Type: BLOOD SPECIMEN Ordering Facility: [facility] Address: [address] [place] [address] Performed By: #### Farshad SHORT, 3016-3, 20213-3, 62416-0, 60032-2 #### [facility] CLIA [id number] [address] [place], [place] [address] [place] AST [Catalytic activity/Vol] 33 U/L Normal 8-34 [facility] Comment on above: Order Comment: Speci men Type: BLOOD SPECIMEN Ordering Facility: [facility] Address: [address] [place] [address] Result Comment: Resu lts may be falsely depressed after the administration of Sulfasalazine and/or Sulfapyridine. Performed By: #### Farshad SHORT, 3016-3, 67498-9, , 31338-6 #### [facility] CLIA [id number] [address] [place] [address] [place] Bilirubin [Mass/Vol] 0.3 mg/dL Normal 0.2-1.0 [facility] Comment on above: Order Comment: Speci men Type: BLOOD SPECIMEN Ordering Facility: [facility] Address: [address] [place] [address] Performed By: #### Farshad SHORT, 3016-3, 97943-4, , 91913-6 #### [facility] CLIA [id number] [address] [place] [address] [place] Calcium [Mass/Vol] 8.8 mg/dL Normal 8.5-10.5 [facility] Comment on above: Order Comment: Speci men Type: BLOOD SPECIMEN Ordering Facility: [facility] Address: [address] [place], [place] [address] Performed By: #### Farshad SHORT, 3016-3, 12837-2, , 10391-3 #### [facility] CLIA [id number] [address] [place] [address] [place] Chloride [Moles/Vol] 106 mmol/L Normal 98-107 [facility] Comment on above: Order Comment: Speci men Type: BLOOD SPECIMEN Ordering Facility: [facility] Address: [address] [place], [place] [address] Performed By: #### Farshad DEJA, 3016-3, 44332-9, 71290-9, 23373-0 #### [facility] CLIA [id number] [address] [place], [place] [address] [place] CO2 [Moles/Vol] 24 mmol/L Normal 21-32 [facility] Comment on above: Order Comment: Speci men Type: BLOOD SPECIMEN Ordering Facility: [facility] Address: [address] [place] [address] Performed By: #### Farshad DEJA, 3016-3, 18881-7, 74477-3, 54533-5 #### [facility] CLIA [id number] [address] [place], [place] [address] [place] Creatinine [Mass/Vol] 0.73 mg/dL Normal 0.51-0.95 [facility] Comment on above: Order Comment: Speci men Type: BLOOD SPECIMEN Ordering Facility: [facility] Address: [address] [place] [address] Result Comment: Isabella ents receiving either N-Acetylcysteine (NAC) or Metamizole prior to venipuncture, may have falsely depressed results. Performed By: #### Farshad DEJA, 3016-3, 95213-2, 01016-5, 42595-3 #### [facility] CLIA [id number] [address] [place] [address] [facility] Creatinine and Glomerular filtration rate.predicted panel (S/P/Bld) 88 mL/min/1.73m??? Normal >=60 [facility] Comment on above: Order Comment: Speci men Type: BLOOD SPECIMEN Ordering Facility: [facility] Address: [address] [place] [address] Result Comment: Sameera mated Glomerular Filtration Rate (eGFR) is calculated using the 2020 CKD-EPI creatinine equation. This equation utilizes serum creatinine, sex, and age as parameters. The creatinine assay has traceable calibration to isotope dilution-mass spectrometry. Refer to KDIGO guidelines for clinical interpretation. In patients with unstable renal function, e.g. those with acute kidney injury, the eGFR may not accurately reflect actual GFR. Performed By: #### Farshad DEJA, 3016-3, 81774-7, 09265-8, 65832-7 #### [facility] CLIA [id number] [address] [place] [address] [place] Glucose [Mass/Vol] 102 mg/dL High 70-100 [facility] Comment on above: Order Comment: Stacey goldman Type: BLOOD SPECIMEN Ordering Facility: [facility] Address: [address] [place] [address] Result Comment: The [place] Diabetes Association (ADA) provides guidance for cutoff values for fasting glucose and random glucose. The ADA defines fasting as no caloric intake for at least 8 hours. Fasting plasma glucose results between 100 to 125 mg/dL indicate increased risk for diabetes (prediabetes). Fasting plasma glucose results greater than or equal to 126 mg/dL meet the criteria for diagnosis of diabetes. In the absence of unequivocal hyperglycemia, results should be confirmed by repeat testing. In a patient with classic symptoms of hyperglycemia or hyperglycemic crisis, random plasma glucose results greater than or equal to 200 mg/dL meet the criteria for diagnosis of diabetes. Reference: Standards of Medical Care in Diabetes 2016, [place] [employer] Association. Diabetes Care. 2016.39(Suppl 1). Results may be falsely elevated after the administration of Sulfapyridine. Results may be falsely depressed after the administration of Sulfasalazine. Performed By: #### Farshad SHORT, 3016-3, 51414-3, 80186-2, 81591-1 #### [facility] CLIA [id number] [address] [place], [place] [address] [place] Potassium [Moles/Vol] 3.9 mmol/L Normal 3.5-5.1 [facility] Comment on above: Order Comment: Stacey goldman Type: BLOOD SPECIMEN Ordering Facility: [facility] Address: [address] [place] [address] Performed By: #### Farshad DEJA, 3016-3, 11327-6, 30779-1, 16973-7 #### [facility] CLIA [id number] [address] [place], [place] [address] [place] Protein [Mass/Vol] 6.4 g/dL Normal 6.0-8.5 [facility] Comment on above: Order Comment: Speci men Type: BLOOD SPECIMEN Ordering Facility: [facility] Address: [address] [place] [address] Performed By: #### H NESSAP, 3016-3, 41891-5, 46374-6, 68681-5 #### [facility] CLIA [id number] [address] [place] [address] [place] Sodium [Moles/Vol] 137 mmol/L Normal 136-145 [facility] Comment on above: Order Comment: Speci men Type: BLOOD SPECIMEN Ordering Facility: [facility] Address: [address] [place] [address] Performed By: #### H NESSAP, 3016-3, 80368-6, 29431-7, 06821-8 #### [facility] CLIA [id number] [address] [place], [place] [address] [place] Urea nitrogen [Mass/Vol] 9 mg/dL Normal 7-26 [facility] Comment on above: Order Comment: Speci men Type: BLOOD SPECIMEN Ordering Facility: [facility] Address: [address] [place] [address] Performed By: #### H NESSAP, 3016-3, 74865-2, 33064-3, 79619-3 #### [facility] CLIA [id number] [address] [place], [place] [address] [place] ECG COMPLETEon 08-19-2024 ECG COMPLETE Ventricular Rate : 6 4 BPM Atrial Rate : 64 BPM P-R Interval : 138 ms QRS Duration : 76 ms Q-T Interval : 424 ms QTC Calculation(Bazett) : 437 ms Calculated P [place] : 50 degrees Calculated R [place] : 41 degrees Calculated T [place] : 66 degrees Normal sinus rhythm Non-specific ST abnormality Abnormal ECG When compared with ECG of 18-Aug-2024 09:32, No significant change was found Confirmed by ISA SERRANO MD ([id number]) on 08/19/2024 4:40:03 PM NAME : JESSICA LAZCANO PID : [id number] : 1950 Gender : Female Race : ORD : [id number] Procedure Date : Aug 19 2024 06:25:37 Edit Date : Aug 19 2024 16:40:11 Diagnosis: Normal sinus rhythm Non-specific ST abnormality Abnormal ECG When compared with ECG of 18-Aug-2024 09:32, No significant change was found Confirmed by ISA SERRANO MD ([id number]) on 08/19/2024 4:40:03 PM Test Reason : RT Location : : [place] [address] Overread By : ISA SERRANO MD Edited By : ISA SERRANO MD Referred By : CHARANJIT RIVERA Acquired by : ASHLEE DOZIER [facility] Magnesium SerPl-ncon 08-19 Magnesium [Mass/Vol] 2.1 mg/dL Normal 1.6-2.6 [facility] Comment on above: Order Comment: Stacey goldman Type: BLOOD SPECIMEN Ordering Facility: [facility] Address: [address] [place] [address] Performed By: #### H DEJA, 3016-3, 47740-1, 69768-8, 65878-2 #### [facility] CLIA [id number] [address] [place] [address] [place] Phosphate SerPl-mCncon 08-19 Phosphate [Mass/Vol] 2.3 mg/dL Low 2.5-4.9 [facility] Comment on above: Order Comment: Stacey goldman Type: BLOOD SPECIMEN Ordering Facility: [facility] Address: [address] [place] [address] Result Comment: Elev ated m-protein (paraprotein) levels in the serum may be exhibited in patients with monoclonal gammopathies, causing falsely elevated inorganic phosphorus results. Performed By: #### Farshad SHORT, 3016-3, 50881-1, 83248-0, 50359-2 #### [facility] CLIA [id number] [address] [place] [address] [place] CBC panel Auto (Bld)on 08-18 Erythrocyte distribution width (RBC) [Ratio] 12.4 % Normal 11.5-15.0 [facility] Comment on above: Order Comment: Speci men Type: BLOOD SPECIMEN Ordering Facility: [facility] Address: [address] [place] [address] Performed By: #### H NESSAP, 3016-3, 13480-3, 05058-1, 20809-5 #### [facility] CLIA [id number] [address] [place], [place] [address] [place] Hematocrit (Bld) [Volume fraction] 30.6 % Low 36.0-46.0 [facility] Comment on above: Order Comment: Speci men Type: BLOOD SPECIMEN Ordering Facility: [facility] Address: [address] [place] [address] Performed By: #### H DEJA, 3016-3, 14735-9, 28920-8, 02945-7 #### [facility] CLIA [id number] [address] [place] [address] [place] Hemoglobin (Bld) [Mass/Vol] 10.6 g/dL Low 11.5-15.5 [facility] Comment on above: Order Comment: Speci men Type: BLOOD SPECIMEN Ordering Facility: [facility] Address: [address] [place] [address] Performed By: #### Farshad SHORT, 3016-3, 78486-2, 33262-6, 53939-2 #### [facility] CLIA [id number] [address] [place] [address] [place] MCH (RBC) [Entitic mass] 29.4 pg Normal 26.0-34.0 [facility] Comment on above: Order Comment: Speci men Type: BLOOD SPECIMEN Ordering Facility: [facility] Address: [address] [place] [address] Performed By: #### H NESSAP, 3016-3, 71566-9, 97126-6, 48924-1 #### [facility] CLIA [id number] [address] [place] [address] [place] MCHC (RBC) [Mass/Vol] 34.6 g/dL Normal 30.5-36.0 [facility] Comment on above: Order Comment: Speci men Type: BLOOD SPECIMEN Ordering Facility: [facility] Address: [address] [place] [address] Performed By: #### Farshad NESSAP, 3016-3, 08709-5, 04135-9, 94338-6 #### [facility] CLIA [id number] [address] [place], [place] [address] [place] MCV (RBC) [Entitic vol] 85.0 fL Normal 80.0-100.0 [facility] Comment on above: Order Comment: Speci men Type: BLOOD SPECIMEN Ordering Facility: [facility] Address: [address] [place] [address] Performed By: #### Farshad SHORT, 3016-3, 20847-8, 35176-4, 49345-5 #### [facility] CLIA [id number] [address] [place], [place] [address] [place] Nucleated RBC (Bld) [#/Vol] 10*3/uL Normal <0.01 [facility] Comment on above: Order Comment: Speci men Type: BLOOD SPECIMEN Ordering Facility: [facility] Address: [address] [place] [address] Performed By: #### Farshad SZYMANSKIP, 3016-3, 10331-0, 41983-9, 12497-7 #### [facility] CLIA [id number] [address] [place], [place] [address] [place] Platelet mean volume (Bld) [Entitic vol] 10.3 fL Normal 9.0-12.7 [facility] Comment on above: Order Comment: Speci men Type: BLOOD SPECIMEN Ordering Facility: [facility] Address: [address] [place] [address] Performed By: #### H NESSAP, 3016-3, 56968-8, 75722-6, 81597-9 #### [facility] CLIA [id number] [address] [place], [place] [address] [place] Platelets (Bld) [#/Vol] 273 10*3/uL Normal 150-400 [facility] Comment on above: Order Comment: Speci men Type: BLOOD SPECIMEN Ordering Facility: [facility] Address: [address] [place] [address] Performed By: #### Farshad SZYMANSKIP, 3016-3, 00922-7, 45887-9, 51448-6 #### [facility] CLIA [id number] [address] [place] [address] [place] RBC (Bld) [#/Vol] 3.60 10*6/uL Low 3.90-5.20 [facility] Comment on above: Order Comment: Speci men Type: BLOOD SPECIMEN Ordering Facility: [facility] Address: [address] [place] [address] Performed By: #### Farshad SZYMANSKIP, 3016-3, 80531-2, 80821-8, 69186-1 #### [facility] CLIA [id number] [address] [place] [address] [place] WBC (Bld) [#/Vol] 12.65 10*3/uL High 3.70-11.00 [facility] Comment on above: Order Comment: Speci men Type: BLOOD SPECIMEN Ordering Facility: [facility] Address: [address] [place] [address] Performed By: #### Farshad SZYMANSKIP, 3016-3, 30718-8, 77920-7, 30622-8 #### [facility] CLIA [id number] [address] [place] [address] [place] CRP SerPl HS-mCncon 08-18-20 CRP High sensitivity method [Mass/Vol] 161.8 mg/L High 0.0-3.0 [facility] Comment on above: Order Comment: Speci men Type: BLOOD SPECIMEN Ordering Facility: [facility] Address: [address] [place] [address] Result Comment: hsCR P < 1.0 mg/L, relative risk is low hsCRP 1.0-3.0 mg/L, relative risk is average hsCRP > 3.0 mg/L, relative risk is high Reference: Cohn TA, Greg GA, Timoteo RW, et al. Markers of Inflammation and Cardiovascular Disease. Application to Clinical and Public Health Practice. A Statement for Healthcare Professionals from the Centers for Disease Control and Prevention and the [place] [employer] Association. Circulation 2003;107:499-511. Performed By: #### H NESSAP, 3016-3, 84547-6, 26491-5, 16657-9 #### [facility] CLIA [id number] [address] [place] [address] Comprehensive metabolic 2000 panelon 08-18-2024 Albumin [Mass/Vol] 2.9 g/dL Low 3.2-5.0 [facility] Comment on above: Order Comment: Stacey goldman Type: BLOOD SPECIMEN Ordering Facility: [facility] Address: [address] [place] [address] Performed By: #### H DEJA, 3016-3, 43447-8, 81366-1, 48868-4 #### [facility] CLIA [id number] [address] [place] [address] [place] ALP [Catalytic activity/Vol] 36 U/L Low 45-117 [facility] Comment on above: Order Comment: Stacey goldman Type: BLOOD SPECIMEN Ordering Facility: [facility] Address: [address] [place] [address] Performed By: #### H NESSAP, 3016-3, 51956-1, 19064-3, 05948-9 #### [facility] CLIA [id number] [address] [place] [address] ALT [Catalytic activity/Vol] 17 U/L Normal 13-61 [facility] Comment on above: Order Comment: Stacey goldman Type: BLOOD SPECIMEN Ordering Facility: [facility] Address: [address] [place] [address] Result Comment: Resu lts may be falsely depressed after the administration of Sulfasalazine and/or Sulfapyridine. Performed By: #### H NESSAP, 3016-3, 76212-3, 29271-2, 09118-2 #### [facility] CLIA [id number] [address] [place] [address] [place] Anion gap [Moles/Vol] 7 mmol/L Normal 5-16 [facility] Comment on above: Order Comment: Speci men Type: BLOOD SPECIMEN Ordering Facility: [facility] Address: [address] [place] [address] Performed By: #### Farshad SHORT, 3016-3, 10319-9, 23805-9, 14085-1 #### [facility] CLIA [id number] [address] [place], [place] [address] [place] AST [Catalytic activity/Vol] 29 U/L Normal 8-34 [facility] Comment on above: Order Comment: Speci men Type: BLOOD SPECIMEN Ordering Facility: [facility] Address: [address] [place] [address] Result Comment: Resu lts may be falsely depressed after the administration of Sulfasalazine and/or Sulfapyridine. Performed By: #### Farshad SHORT, 3016-3, 89279-4, 12135-8, 44713-6 #### [facility] CLIA [id number] [address] [place], [place] [address] [place] Bilirubin [Mass/Vol] 0.3 mg/dL Normal 0.2-1.0 [facility] Comment on above: Order Comment: Speci men Type: BLOOD SPECIMEN Ordering Facility: [facility] Address: [address] [place] [address] Performed By: #### Farshad SHORT, 3016-3, 95882-8, 58173-1, 23959-3 #### [facility] CLIA [id number] [address] [place], [place] [address] [place] Calcium [Mass/Vol] 8.4 mg/dL Low 8.5-10.5 [facility] Comment on above: Order Comment: Speci men Type: BLOOD SPECIMEN Ordering Facility: [facility] Address: [address] [place] [address] Performed By: #### Farshad SHORT, 3016-3, 75855-3, 77267-1, 42615-7 #### [facility] CLIA [id number] [address] [place], [place] [address] [place] Chloride [Moles/Vol] 107 mmol/L Normal 98-107 [facility] Comment on above: Order Comment: Speci men Type: BLOOD SPECIMEN Ordering Facility: [facility] Address: [address] [place] [address] Performed By: #### Farshad SHORT, 3016-3, 74133-7, 86896-4, 40782-4 #### [facility] CLIA [id number] [address] [place], [place] [address] [place] CO2 [Moles/Vol] 21 mmol/L Normal 21-32 [facility] Comment on above: Order Comment: Speci men Type: BLOOD SPECIMEN Ordering Facility: [facility] Address: [address] [place] [address] Performed By: #### Farshad SHORT, 3016-3, 98703-5, , 76425-8 #### [facility] CLIA [id number] [address] [place], [place] [address] [place] Creatinine [Mass/Vol] 0.81 mg/dL Normal 0.51-0.95 [facility] Comment on above: Order Comment: Speci men Type: BLOOD SPECIMEN Ordering Facility: [facility] Address: [address] [place] [address] Result Comment: Isabella ents receiving either N-Acetylcysteine (NAC) or Metamizole prior to venipuncture, may have falsely depressed results. Performed By: #### Farshad SHORT, 3016-3, 03862-8, 38118-9, 19853-5 #### [facility] CLIA [id number] [address] [place], [place] [address] [place] Creatinine and Glomerular filtration rate.predicted panel (S/P/Bld) 78 mL/min/1.73m??? Normal >=60 [facility] Comment on above: Order Comment: Speci men Type: BLOOD SPECIMEN Ordering Facility: [facility] Address: [address] [place] [address] Result Comment: Sameera mated Glomerular Filtration Rate (eGFR) is calculated using the 2020 CKD-EPI creatinine equation. This equation utilizes serum creatinine, sex, and age as parameters. The creatinine assay has traceable calibration to isotope dilution-mass spectrometry. Refer to KDIGO guidelines for clinical interpretation. In patients with unstable renal function, e.g. those with acute kidney injury, the eGFR may not accurately reflect actual GFR. Performed By: #### H DEJA, 3016-3, 25859-5, 96310-7, 86394-2 #### [facility] CLIA [id number] [address] [place], [place] [address] [place] Glucose [Mass/Vol] 103 mg/dL High 70-100 [facility] Comment on above: Order Comment: Stacey men Type: BLOOD SPECIMEN Ordering Facility: [facility] Address: [address] [place] [address] Result Comment: The [place] Diabetes Association (ADA) provides guidance for cutoff values for fasting glucose and random glucose. The ADA defines fasting as no caloric intake for at least 8 hours. Fasting plasma glucose results between 100 to 125 mg/dL indicate increased risk for diabetes (prediabetes). Fasting plasma glucose results greater than or equal to 126 mg/dL meet the criteria for diagnosis of diabetes. In the absence of unequivocal hyperglycemia, results should be confirmed by repeat testing. In a patient with classic symptoms of hyperglycemia or hyperglycemic crisis, random plasma glucose results greater than or equal to 200 mg/dL meet the criteria for diagnosis of diabetes. Reference: Standards of Medical Care in Diabetes 2016, [place] [employer]. Diabetes Care. 2016.39(Suppl 1). Results may be falsely elevated after the administration of Sulfapyridine. Results may be falsely depressed after the administration of Sulfasalazine. Performed By: #### H NESSAP, 3016-3, 26823-0, 80562-0, 51069-7 #### [facility] CLIA [id number] [address] [place], [place] [address] [place] Potassium [Moles/Vol] 4.1 mmol/L Normal 3.5-5.1 [facility] Comment on above: Order Comment: Speci men Type: BLOOD SPECIMEN Ordering Facility: [facility] Address: [address] [place], [place] [address] Performed By: #### Farshad SHORT, 3016-3, 40116-5, 62599-9, 86203-2 #### [facility] CLIA [id number] [address] [place], [place] [address] [place] Protein [Mass/Vol] 6.6 g/dL Normal 6.0-8.5 [facility] Comment on above: Order Comment: Speci men Type: BLOOD SPECIMEN Ordering Facility: [facility] Address: [address] [place], [place] [address] Performed By: #### Farshad SHORT, 3016-3, 37291-5, 85132-7, 36676-6 #### [facility] CLIA [id number] [address] [place] [address] [place] Sodium [Moles/Vol] 135 mmol/L Low 136-145 [facility] Comment on above: Order Comment: Speci men Type: BLOOD SPECIMEN Ordering Facility: [facility] Address: [address] [place], [place] [address] Performed By: #### Farshad SHORT, 3016-3, 65546-2, 97014-9, 24011-6 #### [facility] CLIA [id number] [address] [place] [address] [place] Urea nitrogen [Mass/Vol] 9 mg/dL Normal 7-26 [facility] Comment on above: Order Comment: Speci men Type: BLOOD SPECIMEN Ordering Facility: [facility] Address: [address] [place], [place] [address] Performed By: #### Farshad SHORT, 3016-3, 20749-6, 48441-6, 88585-7 #### [facility] CLIA [id number] [address] [place] [address] [place] ECG COMPLETEon 08-18-2024 ECG COMPLETE Ventricular Rate : 6 1 BPM Atrial Rate : 61 BPM P-R Interval : 136 ms QRS Duration : 82 ms Q-T Interval : 446 ms QTC Calculation(Bazett) : 448 ms Calculated P [place] : 39 degrees Calculated R [place] : 22 degrees Calculated T [place] : 51 degrees Normal sinus rhythm Normal ECG No previous ECGs available Confirmed by SAW REYEZ MD ([id number]) on 08/18/2024 1:29:46 PM NAME : JESSICA LAZCANO PID : [id number] : 1950 Gender : Female Race : ORD : [id number] Procedure Date : Aug 18 2024 05:57:51 Edit Date : Aug 18 2024 13:29:48 Diagnosis: Normal sinus rhythm Normal ECG No previous ECGs available Confirmed by SAW REYEZ MD ([id number]) on 08/18/2024 1:29:46 PM Test Reason : RT Location : 13 : U [id number] Overread By : SAW REYEZ MD Edited By : SAW REYEZ MD Referred By : CHARANJIT RIVERA Acquired by : CANDE ANGUIANO [facility] ECHO WITH AGITATED SALINE CO NTRASTon 08-18-2024 ECHO WITH AGITATED SALINE CONTRAST Echocardiography Report: Transthoracic Echo [facility] Date of service: 08/18/2024 8:06:34 AM Ordering physician: LANE PEDRAZA Indication: Abnormal ECG Technologist: Evelia William [facility] Interpreting physician: Melissa Osborn MD PATIENT: Name: MRS. JESSICA LAZCANO : 1950 Age: 73 years Gender: F History of hypertension, dyslipidemia, arrhythmia and CVA. Previous cardiovascular interventions: Diagnostic cath Primary rhythm: sinus. Height: 167.60 cm BSA: 2.08 m Weight: 92.50 kg BMI: 32.9 kg/m Heart rate 63 bpm Blood pressure 145/62 mmHg Technically difficult exam due to body habitus. Agitated saline was administered to assess source of emboli. Color Doppler was utilized to interrogate the cardiac valves assessed and spectral Doppler was utilized to determine the flow velocities and pressure gradients reported in this exam. Myocardial strain analysis was performed in this exam to aid in the assessment of cardiac function. MEASUREMENTS: Value Indexed Normal Max aortic dimension 3.2 cm Ao < 3.8 Left atrial volume 36 ml (biplane A-L) 17 ml/m Radames <= 34 LV ID (diastole) 3.8 cm (2D) 1.83 cm/m LV ID (systole) 2.1 cm (2D) 1.01 cm/m IVS, leaflet tips 1.3 cm (2D) Posterior wall thickness 1.3 cm (2D) Left ventricular mass 173 g (2D) 83 g/m Global peak long strain -21.3 % LV stroke volume 50 ml (2D biplane) LVOT stroke volume 98 ml 49 ml/m LV end diastolic volume 78 ml (2D biplane) 37.6 ml/m 29<=EDVi<62 LV end systolic volume 28 ml (2D biplane) 13.5 ml/m Ejection Fraction 64 % (2D biplane) EF > 54 FINDINGS: LEFT VENTRICLE The left ventricle is normal in size. Left ventricular systolic function is normal. Global LV myocardial strain is normal. Normal left ventricular diastolic function. Mitral annular lateral E/e': 10.3. Mitral annular septal E/e': 10.5. Definity contrast used for endocardial border detection. Wall Motion: All scored segments are normal. RIGHT VENTRICLE The right ventricle is normal in size. Right ventricular systolic function is normal. RV systolic tissue Doppler velocity is 15.2 cm/s. Tricuspid annular displacement is 2.2 cm. Estimated right ventricular systolic pressure is 26 mmHg consistent with normal pulmonary artery pressures. Estimated right atrial pressure is 3 mmHg based on IVC assessment. LEFT ATRIUM The left atrial cavity is normal in size. RIGHT ATRIUM The right atrial cavity is normal in size. Inferior Vena Cava: The inferior vena cava appears normal measuring 1.5 cm. The vessel decreases greater than 50 percent with inspiration. MITRAL VALVE There is no mitral stenosis. There is trace mitral valve regurgitation. The peak mitral valve gradient is 6 mmHg. The mean mitral valve gradient is 2 mmHg. The pressure half time is 68 msec. The peak mitral E/A ratio is 0.87. The average mitral E/e' ratio is 10.4. The mitral flow deceleration time is 235 msec. TRICUSPID VALVE There is no tricuspid stenosis. There is trace tricuspid valve regurgitation. AORTIC VALVE There is no aortic valve stenosis. There is no aortic valve regurgitation. There is mild calcification. The peak gradient is 16 mmHg (peak velocity = 203.0 cm/s). The mean gradient is 9 mmHg. The LVOT mean velocity is 86.8 cm/s. The LVOT diameter is 2.1 cm. The aortic VTI is 41.3 cm. The mean velocity in the aortic valve is 133.0 cm/s. The dimensionless valve index is 0.69. AV area is 2.37 cm (1.14 cm /m ) by continuity, VTI. The LVOT stroke volume index is 49 ml/m . PULMONIC VALVE There is no pulmonic stenosis. There is trace pulmonic valve regurgitation. The peak gradient is 4 mmHg. AORTA The visualized aorta is normal in size. Measurements - Sinus: 3.2 cm. Sinotubular junction 2.5 cm. Mid ascending aorta 3.1 cm. INTERATRIAL SEPTUM There is no patent foramen ovale as detected by agitated saline contrast. PERICARDIUM The pericardium is normal. There is no pericardial effusion. CONCLUSIONS: - Technically difficult exam due to body habitus. - Exam indication: Abnormal ECG - The left ventricle is normal in size. Left ventricular systolic function is normal. EF = 64 5% (2D biplane) Definity contrast used for endocardial border detection. - The right ventricle is normal in size. Right ventricular systolic function is normal. - There is no patent foramen ovale as detected by agitated saline contrast. - The patient has not had a prior CC echocardiographic exam for comparison. * * * Final * * * CC [facility] Image : [id number] amicsSISUID Normal [facility] Magnesium SerPl-mCncon 08-18 Magnesium [Mass/Vol] 2.8 mg/dL High 1.6-2.6 [facility] Comment on above: Order Comment: Speci men Type: BLOOD SPECIMEN Ordering Facility: [facility] Address: [address] [place] [address] Performed By: #### H DEJA, 3016-3, 89281-9, 84799-5, 24783-6 #### [facility] CLIA [id number] [address] [place] [address] [place] NM CARDIAC PERF STRESS/PHARM on 08-18-2024 NM CARDIAC PERF STRESS/PHARM * * *Final Report* * * DATE OF EXAM: Aug 18 2024 11:54AM [facility] 0006 - NM CARDIAC PERF STRESS/PHARM / PROCEDURE REASON: * * * * Physician Interpretation * * * * Stress Office Professionals Report: [facility] Date of service: 08/18/2024 8:54:05 AM Supervising physician: Melissa Osborn MD PATIENT: Name: MRS. JESSICA LAZCANO Age: 73 years Gender: F * * * Final * * * -------- PATIENT: Name: MRS. JESSICA LAZCANO Age: 73 years Gender: F CONCLUSIONS: 1. SPECT Perfusion Study: Normal. 2. There is no scintigraphic evidence for inducible ischemia. 3. No evidence of scarred myocardium. 4. Left ventricle is normal in size. The left ventricle systolic function is normal. Gated Stress FBP Gated Rest FBP LVEF % 79 74 Prior Study Comparison No prior nuclear cardiology exam available for comparison. Nuclear Med Report:1-Day Gated SPECT Myocardial Perfusion with Regadenoson Stress: Myocardial perfusion imaging was performed at rest 30 minutes following the IV injection of the radiotracer. The patient received 0.4 mg of regadenoson, via rapid IV push, immediately followed by radiotracer IV. Gated post stress tomographic imaging was performed 30 to 60 minutes later. See administered radiotracer and doses below. [facility] Date of service: 08/18/2024 8:54:05 AM Ordering Physician: ACRY BA. Requesting Physician: Indication: CP - ECG uniterpretable OR unable to exercise Interpreting physician: Melissa Osborn MD Height: 167.64 cm BSA: 2.07 m? Weight: 92.08 kg BMI: 32.8 kg/m? Exam Type: Rest Stress Radiopharm: Tc-99m Tetrofosmin Tc-99m Tetrofosmin Dosage(mCi): 12.8 36.0 Atten Correction: not performed not performed Stress Agent: Regadenoson 0.4mg Supply provided from [facility] Resting Blood Press: 150/74 mmHg Image Quality The overall study imaging quality was deemed to be good. FINDINGS: Stress FBP Gated Stress FBP Gated Rest FBP LVEF: 79 % 74 % ED Volume: 81 ml 66 ml ES Volume: 17 ml 17 ml TID: 0.91 Perfusion Findings Stress FBP - Summed Score=0 All segments demonstrate normal perfusion. Rest FBP - Summed Score=1 There is a mild perfusion defect in the apex. All remaining scored segments show normal perfusion. Stress FBP Rest FBP Summed Score=0 Summed Score=1 LEFT VENTRICLE The left ventricle is normal in size. Left ventricular systolic function is normal. Right Ventricle The right ventricle is unseen or not interrogated. Stress Test Findings: There is no scintigraphic evidence for inducible ischemia. There is no evidence of scarring. * * * Final * * * -------- Stress ECG Report: [facility] Date of service: 08/18/2024 8:54:05 AM Ordering physician: CARY BA youth services specialist: Joanna Dickson RN Waste Treatment Operator: Norma Partida Interpreting physician: Melissa Osborn MD Patient name: MRS. JESSICA LAZCANO Age: 73 years Gender: F Height: 167.64 cm BSA: 2.07 m? Weight: 92.08 kg BMI: 32.8 kg/m? Indication: Abnormal resting ECG and Encounter for screening for cardiovascular disorders Stress ECG Conclusion: Conclusion: Non-diagnostic Comments: Summary: 1. No Lexiscan induced chest pain. 2. No Lexiscan induced EKG changes of ischemia. 3. No Lexiscan induced arrhythmias. 4. Myoview scan will be reported separately. Stress ECG Summary: The patient's resting heart rate was 67 bpm and blood pressure was 150/74 mmHg. The patient received regadenoson 0.4 mg IVP over approximately 15 seconds followed immediately by injection of nuclear isotope. The test was terminated due to end of protocol. No symptoms provoked during stress. The maximum heart rate was 82 bpm, which is 55% of the predicted heart rate for age. Peak blood pressure was 138/69 mmHg. The double product achieved was [address]. Medications: Last Used ALENDRONATE SODIUM AMLODIPINE BABY ASPIRIN BUSPAR LISINOPRIL METOPROLOL ROSUVASTATIN DESYREL Resting ECG: Normal Sinus Rhythm and Nonspecific St-T Wave Changes Symptoms at rest: No symptoms Pharamcologic Protocol: Regadenoson Stress Exercise Table: +------+--+---+---+ Stage HR SYS SHIRAZ +------+--+---+---+ 1 81 138 69 +------+--+---+---+ 2 80 137 68 +------+--+---+---+ 3 78 140 69 +------+--+---+---+ +-----+--+---+---+ HR SYS SHIRAZ +-----+--+---+---+ Final 82 138 69 +-----+--+---+---+ Stress Observations: Resting HR: 67 bpm Peak HR: 82 bpm (55% MPHR) Resting BP: 150 / 74 mmHg Peak BP: 138 / 69 mmHg Rate Pressure Product (RPP): 51299 Stress Exercise Observations: Reason for test termina (more content not included)... Normal [facility] Phosphate SerPl-mCncon 08-18 Phosphate [Mass/Vol] 1.8 mg/dL Low 2.5-4.9 [facility] Comment on above: Order Comment: Speci men Type: BLOOD SPECIMEN Ordering Facility: [facility] Address: [address] [place] [address] Result Comment: Elev ated m-protein (paraprotein) levels in the serum may be exhibited in patients with monoclonal gammopathies, causing falsely elevated inorganic phosphorus results. Performed By: #### H DEJA, 3016-3, 71124-3, 92934-8, 95261-0 #### [facility] CLIA [id number] [address] [place] [address] [place] Urate SerPl-mCncon 4 Urate [Mass/Vol] 2.7 mg/dL Normal 2.6-6.0 [facility] Comment on above: Order Comment: Speci men Type: BLOOD SPECIMEN Ordering Facility: [facility] Address: [address] [place] [address] Result Comment: Isabella ents receiving Metamizole prior to venipuncture, may have falsely depressed results. Performed By: #### Farshad SHORT, 3016-3, 03597-3, 93463-8, 48908-1 #### [facility] CLIA [id number] [address] [place] [address] [place] Bacteria Spec Resp Culton Bacteria identified Respiratory culture Nom (Unsp spec) CULTURE, RESPIRATORY: Moderate Normal respiratory cody present GRAM STAIN: Many Polymorphonuclear leukocytes Rare Epithelial cells Rare Gram positive cocci Rare Gram positive bacilli Abnormal [facility] Comment on above: Performed By: #### Farshad SHORT, 3016-3, 52429-5, 34254-6, 32313-5 #### [facility] CLIA [id number] [address] [place] [address] [place] Bacteria Ur Culton 4 Bacteria identified Cx Nom (U) CULTURE, URINE: No growth (<1,000 CFU/ml) Normal [facility] Comment on above: Performed By: #### Farshad SHORT, 3016-3, 54161-2, 16195-3, 71587-4 #### [facility] CLIA [id number] [address] [place] [address] [place] Basic metabolic 2000 panelon 08-17-2024 Anion gap [Moles/Vol] 14 mmol/L Normal 5-16 [facility] Comment on above: Order Comment: Speci men Type: BLOOD SPECIMEN Ordering Facility: [facility] Address: [address] [place] [address] Performed By: #### Farshad SHORT, 3016-3, 48927-9, 38350-4, 33586-5 #### [facility] CLIA [id number] [address] [place], [place] [address] [place] Calcium [Mass/Vol] 8.3 mg/dL Low 8.5-10.5 [facility] Comment on above: Order Comment: Speci men Type: BLOOD SPECIMEN Ordering Facility: [facility] Address: [address] [place] [address] Performed By: #### Farshad SHORT, 3016-3, 84193-1, 18666-5, 77538-5 #### [facility] CLIA [id number] [address] [place], [place] [address] [place] Chloride [Moles/Vol] 100 mmol/L Normal 98-107 [facility] Comment on above: Order Comment: Speci men Type: BLOOD SPECIMEN Ordering Facility: [facility] Address: [address] [place] [address] Performed By: #### Farshad SHORT, 3016-3, 71838-0, 33211-9, 28888-6 #### [facility] CLIA [id number] [address] [place], [place] [address] [place] CO2 [Moles/Vol] 18 mmol/L Low 21-32 [facility] Comment on above: Order Comment: Speci men Type: BLOOD SPECIMEN Ordering Facility: [facility] Address: [address] [place] [address] Performed By: #### Farshad SHORT, 3016-3, 06015-8, 43203-2, 87795-2 #### [facility] CLIA [id number] [address] [place], [place] [address] [place] Creatinine [Mass/Vol] 0.67 mg/dL Normal 0.51-0.95 [facility] Comment on above: Order Comment: Speci men Type: BLOOD SPECIMEN Ordering Facility: [facility] Address: [address] [place] [address] Result Comment: Isabella ents receiving either N-Acetylcysteine (NAC) or Metamizole prior to venipuncture, may have falsely depressed results. Performed By: #### Farshad SHORT, 3016-3, 23307-3, 71406-5, 08041-3 #### [facility] CLIA [id number] [address] [place] [address] [place] Creatinine and Glomerular filtration rate.predicted panel (S/P/Bld) 94 mL/min/1.73m??? Normal >=60 [facility] Comment on above: Order Comment: Stacey goldman Type: BLOOD SPECIMEN Ordering Facility: [facility] Address: [address] [place] [address] Result Comment: Sameera mated Glomerular Filtration Rate (eGFR) is calculated using the 2020 CKD-EPI creatinine equation. This equation utilizes serum creatinine, sex, and age as parameters. The creatinine assay has traceable calibration to isotope dilution-mass spectrometry. Refer to KDIGO guidelines for clinical interpretation. In patients with unstable renal function, e.g. those with acute kidney injury, the eGFR may not accurately reflect actual GFR. Performed By: #### H DEJA, 3016-3, 35205-3, 44982-9, 48372-4 #### [facility] CLIA [id number] [address] [place], [place] [address] [place] Glucose [Mass/Vol] 129 mg/dL High 70-100 [facility] Comment on above: Order Comment: Stacey goldman Type: BLOOD SPECIMEN Ordering Facility: [facility] Address: [address] [place] [address] Result Comment: The [place] Diabetes Association (ADA) provides guidance for cutoff values for fasting glucose and random glucose. The ADA defines fasting as no caloric intake for at least 8 hours. Fasting plasma glucose results between 100 to 125 mg/dL indicate increased risk for diabetes (prediabetes). Fasting plasma glucose results greater than or equal to 126 mg/dL meet the criteria for diagnosis of diabetes. In the absence of unequivocal hyperglycemia, results should be confirmed by repeat testing. In a patient with classic symptoms of hyperglycemia or hyperglycemic crisis, random plasma glucose results greater than or equal to 200 mg/dL meet the criteria for diagnosis of diabetes. Reference: Standards of Medical Care in Diabetes 2016, [place] [employer] Association. Diabetes Care. 2016.39(Suppl 1). Results may be falsely elevated after the administration of Sulfapyridine. Results may be falsely depressed after the administration of Sulfasalazine. Performed By: #### Farshad SHORT, 3016-3, 61039-9, 36116-0, 14105-2 #### [facility] CLIA [id number] [address] [place], [place] [address] [place] Potassium [Moles/Vol] 3.3 mmol/L Low 3.5-5.1 [facility] Comment on above: Order Comment: Speci men Type: BLOOD SPECIMEN Ordering Facility: [facility] Address: [address] [place] [address] Performed By: #### Farshad SHORT, 3016-3, 18167-4, 67610-5, 78915-5 #### [facility] CLIA [id number] [address] [place], [place] [address] [place] Sodium [Moles/Vol] 132 mmol/L Low 136-145 [facility] Comment on above: Order Comment: Speci men Type: BLOOD SPECIMEN Ordering Facility: [facility] Address: [address] [place] [address] Performed By: #### Farshad SHORT, 3016-3, 47329-4, 13047-7, 36514-8 #### [facility] CLIA [id number] [address] [place], [place] [address] [place] Urea nitrogen [Mass/Vol] 11 mg/dL Normal 7-26 [facility] Comment on above: Order Comment: Speci men Type: BLOOD SPECIMEN Ordering Facility: [facility] Address: [address] [place] [address] Performed By: #### Farshad SHORT, 3016-3, 66596-0, 92192-7, 54478-2 #### [facility] CLIA [id number] [address] [place], [place] [address] [place] CBC panel Auto (Bld)on 08-17 Erythrocyte distribution width (RBC) [Ratio] 12.1 % Normal 11.5-15.0 [facility] Comment on above: Order Comment: Speci men Type: BLOOD SPECIMEN Ordering Facility: [facility] Address: [address] [place] [address] Performed By: #### 5 8410-2 #### [facility] CLIA [id number] [address] [place] [address] [place] Hematocrit (Bld) [Volume fraction] 33.6 % Low 36.0-46.0 [facility] Comment on above: Order Comment: Speci men Type: BLOOD SPECIMEN Ordering Facility: [facility] Address: [address] [place] [address] Performed By: #### 5 8410-2 #### [facility] CLIA [id number] [address] [place] [address] [place] Hemoglobin (Bld) [Mass/Vol] 12.0 g/dL Normal 11.5-15.5 [facility] Comment on above: Order Comment: Speci men Type: BLOOD SPECIMEN Ordering Facility: [facility] Address: [address] [place] [address] Performed By: #### 5 8410-2 #### [facility] CLIA [id number] [address] [place] [address] [place] [facility] MCH (RBC) [Entitic mass] 30.0 pg Normal 26.0-34.0 [facility] Comment on above: Order Comment: Speci men Type: BLOOD SPECIMEN Ordering Facility: [facility] Address: [address] [place] [address] Performed By: #### 5 8410-2 #### [facility] CLIA [id number] [address] [place] [address] [place] MCHC (RBC) [Mass/Vol] 35.7 g/dL Normal 30.5-36.0 [facility] Comment on above: Order Comment: Speci men Type: BLOOD SPECIMEN Ordering Facility: [facility] Address: [address] [place] [address] Performed By: #### 5 8410-2 #### [facility] CLIA [id number] [address] [place] [address] [place] MCV (RBC) [Entitic vol] 84.0 fL Normal 80.0-100.0 [facility] Comment on above: Order Comment: Speci men Type: BLOOD SPECIMEN Ordering Facility: [facility] Address: [address] [id number] Performed By: #### 5 8410-2 #### [facility] CLIA [id number] [address] [place] [address] [place] Nucleated RBC (Bld) [#/Vol] 10*3/uL Normal <0.01 [facility] Comment on above: Order Comment: Speci men Type: BLOOD SPECIMEN Ordering Facility: [facility] Address: [address] [place] [address] Performed By: #### 5 8410-2 #### [facility] CLIA [id number] [address] [place] [address] [place] Platelet mean volume (Bld) [Entitic vol] 10.9 fL Normal 9.0-12.7 [facility] Comment on above: Order Comment: Speci men Type: BLOOD SPECIMEN Ordering Facility: [facility] Address: [address] [place] [address] Performed By: #### 5 8410-2 #### [facility] CLIA [id number] [address] [place] [address] [place] Platelets (Bld) [#/Vol] 244 10*3/uL Normal 150-400 [facility] Comment on above: Order Comment: Speci men Type: BLOOD SPECIMEN Ordering Facility: [facility] Address: [address] [place] [address] Performed By: #### 5 8410-2 #### [facility] CLIA [id number] [address] [place] [address] [place] RBC (Bld) [#/Vol] 4.00 10*6/uL Normal 3.90-5.20 [facility] Comment on above: Order Comment: Speci men Type: BLOOD SPECIMEN Ordering Facility: [facility] Address: [address] [place] [address] Performed By: #### 5 8410-2 #### [facility] CLIA [id number] [address] [place] [id number] [place] WBC (Bld) [#/Vol] 14.60 10*3/uL High 3.70-11.00 [facility] Comment on above: Order Comment: Speci men Type: BLOOD SPECIMEN Ordering Facility: [facility] Address: [facility] [place] [address] Performed By: #### 5 8410-2 #### [facility] CLIA [id number] [address] [id number] [facility] CONSULTon 08-17-2024 CONSULT HNO ID: [id number] Author: CARY BA MD Service: Cardiovascular Medicine Author Type: Physician Type: Consults Filed: 08/17/2024 19:49 Note Text: CARDIOLOGY CONSULT CONSULTING PHYSICIAN: Joe Watts PCP: Ceci Vera MD ATTENDING: Joe Watts MD STAFF [employer] PL[employer] OPERATOR: Dr. Ba REASON FOR CONSULT: paroxysmal vt CHIEF COMPLAINT: Weak, fatigued, and near syncopal episode HPI: This is a 73 year old female with past medical history of obesity, anxiety, hypertension, adjustment disorder with depression, hyperlipidemia, insomnia, stroke, PACs, and bilateral carotid stenosis who initially presented to [facility] ED 08/16/2024. Patient states she has been having weakness and fatigue. Denies any chest pain, shortness of breath, syncope, palpitations, edema, nausea, vomiting, fevers, distress, or chills. ED EVAL: VS: BP 154/82, P106, RR 19, T99.6, SpO2 96% CBC: WBC 14.7, Hgb 12.6/HCT 36.7, PLT 268 BMP: NA 132, K3.1, BUN 15/CR 1.16, Ca 8.9, glucose 142 Lactic acid 1.5 Troponin I 14 CXR: Lungs clear. Normal-sized heart. No acute abnormality seen. EK bpm, QTc 492, VT. Repeat EKG showed 106 bpm, QTc 446, sinus tachycardia, nonspecific ST-T wave abnormalities. Per ED note patient was going in and out of SVT. Patient was evaluated by [facility] fumigator and sterilizer with plan for admission and possible LHC. Patient was also started on amiodarone gtt. Patient transferred to [facility] for further evaluation and treatment. PAST MEDICAL HISTORY: PAST MEDICAL HISTORY Diagnosis Date Adjustment disorder with depressed mood Anxiety Carotid stenosis, bilateral 05/30/2023 40-59% CVA (cerebral vascular accident) (HCC) 02/2023 History of endometriosis History of melanoma 10/15/2014 [facility] (hyperlipidemia) HTN (hypertension) Osteoporosis 06/12/2023 Other and unspecified hyperlipidemia Overweight (BMI 25.0-29.9) Right sided weakness PAST SURGICAL HISTORY: PAST SURGICAL HISTORY Procedure Laterality Date APPENDECTOMY 1998 SECTION HX PAST SURGICAL HISTORY OF exlporatory laparotomy STRESS ECHO FAMILY HISTORY: FAMILY HISTORY Problem Relation Age of Onset Cancer Father lung cancer Diabetes Mother Cancer Mother lung cancer Heart Brother Heart Brother Cancer Sister cervical Heart Sister Diabetes Maternal Grandfather Heart Attack Maternal Grandfather Heart disease Maternal Grandmother Cancer Paternal Grandfather stomach SOCIAL HISTORY: Social History Tobacco Use Smoking status: Never Smokeless tobacco: Never Substance Use Topics Alcohol use: Not Currently Comment: less than monthly Drug use: No MEDICATIONS: Prior to Admission Medications: nitrofurantoin monohydrate and macrocrystal (MACROBID) 100 mg capsuleTake 1 capsule by mouth two times a day with meals for 7 days.Disp: 14 capsuleRfl: 0 traZODone (DESYREL) 50 mg tabletTake 1 tablet by mouth daily at bedtime.Disp: 90 tabletRfl: 1 alendronate (FOSAMAX) 70 mg tabletTake 1 tablet by mouth one time a week. Take with a full glass of water, on an empty stomach; do NOT lie down for 30minutes.Disp: 12 tabletRfl: 3 amLODIPine (NORVASC) 10 mg tabletTake 1 tablet by mouth once daily.Disp: 90 tabletRfl: 1 lisinopril (ZESTRIL) 5 mg tabletTake 1 tablet by mouth once daily.Disp: 90 tabletRfl: 1 metoprolol succinate ER (TOPROL XL) 50 mg 24 hr tabletTake 1 tablet by mouth once daily.Disp: 90 tabletRfl: 1 rosuvastatin (CRESTOR) 20 mg tabletTake 1 tablet by mouth daily at bedtime.Disp: 90 tabletRfl: 1 busPIRone (BUSPAR) 5 mg tabletTake 1 tablet by mouth two times a day.Disp: 180 tabletRfl: 1 diphenhydrAMINE (BENADRYL) 25 mg capsuleTake 25 mg by mouth every 6 hours as needed.Disp: Rfl: aspirin, enteric coated (ASPIRIN, ENTERIC COATED) 81 mg EC tabletTake 1 tablet by mouth once daily.Disp: 90 tabletRfl: 1 Current Facility-Administered Medications Medication Dose Route Frequency NaCl 0.9% iv flush bag 20 mL INTRAVENOUS PRN NaCl 0.9% iv infusion 75 mL/hr INTRAVENOUS CONTINUOUS [START ON 08/17/2024] aspirin 81 mg chewable tab(s) 81 mg ORAL DAILY nitroglycerin sublingual 0.4 mg tab(s) (NITROQUICK) 0.4 mg SUBLINGUAL q 5 MIN PRN atropine 0.4 mg injection 0.4 mg INTRAVENOUS PRN(NO DISPENSE) morphine 4 mg injection 4 mg INTRAVENOUS q 3 H PRN ondansetron (PF) 4 mg injection (ZOFRAN) 4 mg INTRAVENOUS q 6 H PRN sodium chloride 0.9 % (flush) 2-10 mL (BD POSIFLUSH) 2-10 mL INTRAVENOUS DIRECTED PRN And perflutren lipid microspheres 1.1 mg/mL 1.3 mL injection (DEFINITY) 1.3 mL INTRAVENOUS DIRECTED PRN heparin 5,000 Units injection 5,000 Units SUBCUTANEOUS q 12 H amiodarone iv infusion 360 mg in D5W 200 mL (NEXTERONE) 1 mg/min INTRAVENOUS CONTINUOUS cefTRIAXone 1 g in D5W 100 mL Vial-Bag (ROCEPHIN) 1 g INTRAVENOUS AT BEDTIME iv contrast (radiology procedure) INTRAVENOUS DIRECTED PRN levalbuterol 1.25 mg nebulizer solution (XOPENEX) 1.25 (more content not included)... Normal [facility] HIGH SENSITIVITY TROPONIN Io n 08-17-2024 Tropinin I.cardiac panel High sensitivity method 8.8 pg/mL Normal 0.0-34.0 [facility] Comment on above: Order Comment: Speci men Type: BLOOD SPECIMEN Ordering Facility: [facility] Address: [address] [place] [address] Performed By: #### H DEJA, 3016-3, 70715-6, 44104-3, 02351-2 #### [facility] CLIA [id number] [address] [place] [address] [place] Tropinin I.cardiac panel High sensitivity method 11.1 pg/mL Normal 0.0-34.0 [facility] Comment on above: Order Comment: Speci men Type: BLOOD SPECIMEN Ordering Facility: [facility] Address: [address] [place] [address] Performed By: #### Farshad SHORT, 3016-3, 15775-5, 97317-3, 90249-8 #### [facility] CLIA [id number] [address] [place] [address] [place] Tropinin I.cardiac panel High sensitivity method 11.4 pg/mL Normal 0.0-34.0 [facility] Comment on above: Order Comment: Speci men Type: BLOOD SPECIMEN Ordering Facility: [facility] Address: [address] [place] [address] Performed By: #### Farshad SHORT, 3016-3, 16851-2, 37124-3, 51438-7 #### [facility] CLIA [id number] [address] [place] [address] [place] Legionella Ag Ur Qlon 2023 Legionella sp Ag Ql (U) Negative Normal Negative [facility] Comment on above: Order Comment: Speci men Type: URINE SPECIMEN Ordering Facility: [facility] Address: [address] [place] [address] Performed By: #### 3 2781-7 #### [facility] CLIA [id number] [address] [place] [address] [place] Lipid 1996 panelon 4 Cholesterol [Mass/Vol] 111 mg/dL Normal 0-199 [facility] Comment on above: Order Comment: Speci men Type: BLOOD SPECIMEN Ordering Facility: [facility] Address: [address] [place] [address] Result Comment: <200 mg/dL, Desirable 200-239 mg/dL, Borderline high >239 mg/dL, High Performed By: #### Farshad SZYMANSKIP, 3016-3, 04862-0, 02127-4, 91504-5 #### [facility] CLIA [id number] [address] [place] [address] Cholesterol in HDL [Mass/Vol] 40 mg/dL Low >40 [facility] Comment on above: Order Comment: Stacey goldman Type: BLOOD SPECIMEN Ordering Facility: [facility] Address: [address] [place] [address] Result Comment: 40-5 9 mg/dL, Acceptable >59 mg/dL, High: Negative risk factor for coronary heart disease <40 mg/dL, Low: Positive risk factor for coronary heart disease Performed By: #### H DEJA, 3016-3, 32313-2, 81160-6, 18127-7 #### [facility] CLIA [id number] [address] [place] [address] Cholesterol in LDL [Mass/Vol] 56 mg/dL Normal 0-129 [facility] Comment on above: Order Comment: Stacey goldman Type: BLOOD SPECIMEN Ordering Facility: [facility] Address: [address] [place] [address] Result Comment: <100 mg/dL, Optimal 100-129 mg/dL, Near optimal/above optimal 130-159 mg/dL, Borderline high 160-189 mg/dL, High >189 mg/dL, Very high Secondary prevention optimal LDL Cholesterol levels are recommended to be < 70 mg/dL Performed By: #### Farshad DEJA, 3016-3, 44127-2, 05104-7, 87211-8 #### [facility] CLIA [id number] [address] [place] [address] Cholesterol in LDL/Cholesterol in HDL [Mass ratio] 1.40 {ratio} Normal <2.54 [facility] Comment on above: Order Comment: Stacey goldman Type: BLOOD SPECIMEN Ordering Facility: [facility] Address: [address] [place] [address] Result Comment: Nicole bains: 1. National Cholesterol Education Program ATP III Guideline At-A-Glance Quick Desk Reference: National Heart, Lung, and Blood [place]. National Institutes of Health. 2001: NIH Publication No. 01-3305. 2. An International Atherosclerosis Society position paper: global recommendations for the management of dyslipidemia: executive summary, Atherosclerosis. 2014: 232(2):410-413. Performed By: #### Farshad DEJA, 3016-3, 90611-0, 11243-9, 71175-5 #### [facility] CLIA [id number] [facility] [place] [id number] [place] Cholesterol in VLDL [Mass/Vol] 15 mg/dL Normal <30 [facility] Comment on above: Order Comment: Stacey goldman Type: BLOOD SPECIMEN Ordering Facility: [facility] Address: [address] [place] [address] Performed By: #### Farshad SHORT, 3016-3, 29920-1, 51549-8, 54820-8 #### [facility] CLIA [id number] [address] [place] [address] [place] Cholesterol non HDL [Mass/Vol] 71 mg/dL Normal <130 [facility] Comment on above: Order Comment: Stacey goldman Type: BLOOD SPECIMEN Ordering Facility: [facility] Address: [address] [place] [address] Result Comment: <130 mg/dL, Optimal 130-159 mg/dL, Near optimal/above optimal 160-189 mg/dL, Borderline high 190-219 mg/dL, High >219 mg/dL, Very high Secondary prevention optimal non HDL Cholesterol levels are recommended to be <100 mg/dL Performed By: #### Farshad SHORT, 3016-3, 79351-5, 40952-0, 12281-9 #### [facility] CLIA [id number] [address] [place] [address] [place] Cholesterol.total/Balbina sterol in HDL [Mass ratio] 2.78 {ratio} Normal <5.10 [facility] Comment on above: Order Comment: Stacey goldman Type: BLOOD SPECIMEN Ordering Facility: [facility] Address: [address] [place] [address] Performed By: #### Farshad SHORT, 3016-3, 25618-9, 18027-2, 36947-1 #### [facility] CLIA [id number] [address] [place], [place] [address] [place] FASTING TIME 10 hrs Normal [facility] Comment on above: Order Comment: Specgisselle goldman Type: BLOOD SPECIMEN Ordering Facility: [facility] Address: [address] [place] [address] [place] [address] Performed By: #### Farshad DEJA, 3016-3, 29059-4, 55245-6, 82583-6 #### [facility] CLIA [id number] [address] [place], [place] [address] [place] Triglyceride [Mass/Vol] 77 mg/dL Normal 30-149 [facility] Comment on above: Order Comment: Stacey goldman Type: BLOOD SPECIMEN Ordering Facility: [facility] Address: [address] [place] [address] Result Comment: <150 mg/dL, Normal 150-199 mg/dL, Borderline high 200-499 mg/dL, High >499 mg/dL, Very high Patients receiving either N-Acetylcysteine (NAC) or Metamizole prior to venipuncture, may have falsely depressed results. Performed By: #### Farshad SHORT, 3016-3, 25831-3, 04254-6, 93889-1 #### [facility] CLIA [id number] [address] [place], [place] [address] [place] Magnesium SerPl-mCncon 08-17 Magnesium [Mass/Vol] 1.7 mg/dL Normal 1.6-2.6 [facility] Comment on above: Order Comment: Stacey goldman Type: BLOOD SPECIMEN Ordering Facility: [facility] Address: [address] [place] [address] Performed By: #### Farshad SHORT, 3016-3, 85022-7, 64626-8, 73185-1 #### [facility] CLIA [id number] [address] [place], [place] [address] [place] POTASSIUMon 08-17-2024 Potassium [Moles/Vol] 3.6 mmol/L Normal 3.5-5.1 [facility] Comment on above: Order Comment: Guillermoi men Type: BLOOD SPECIMEN Ordering Facility: [facility] Address: [address] [place] [address] Performed By: #### Farshad SHORT, 3016-3, 37826-6, 79516-3, 76715-2 #### [facility] CLIA [id number] [address] [place] [address] [place] STREPTOCOCCUS PNEUMONIAE ANT IGEN URINEon 08-17-2024 STREPTOCOCCUS PNEUMONIAE ANTIGEN URINE STREP PNEUMO AG RESULT: Negative for Streptococcus pneumoniae antigen. Presumptive negative for pneumococcal pneumonia, suggesting no current or recent pneumococcal infection. Infection due to S.pneumoniae cannot be ruled out since the antigen present in the sample may be below the detection limit of the test. Normal [facility] Comment on above: Performed By: #### S PNAG #### [facility] CLIA [id number] [address] [place] [address] [place] URINALYSIS, REFLEX MICROSCOP ICon 08-17-2024 Bacteria LM.HPF (Urine sed) [#/Area] Few Abnormal None Seen [facility] Comment on above: Order Comment: Speci men Type: BLOOD SPECIMEN Ordering Facility: [facility] Address: [address] [place] [address] Performed By: #### Farshad SHORT, 3016-3, 28809-3, 74272-6, 77303-3 #### [facility] CLIA [id number] [address] [place] [address] [place] Bilirubin Ql (U) Negative Normal Negative [facility] Comment on above: Order Comment: Speci men Type: BLOOD SPECIMEN Ordering Facility: [facility] Address: [address] [place] [address] Performed By: #### H DEJA, 3016-3, 97893-9, 72072-5, 01468-7 #### [facility] CLIA [id number] [address] [place] [address] [place] Clarity (Unsp spec) Hazy Abnormal Clear [facility] Comment on above: Order Comment: Speci men Type: BLOOD SPECIMEN Ordering Facility: [facility] Address: [address] [place] [address] Performed By: #### Farshad SZYMANSKIP, 3016-3, 94489-6, 36446-2, 27555-8 #### [facility] CLIA [id number] [address] [place], [place] [address] [place] Color (U) Yellow Normal Yellow [facility] Comment on above: Order Comment: Speci men Type: BLOOD SPECIMEN Ordering Facility: [facility] Address: [address] [place] [address] Performed By: #### Farshad SHORT, 3016-3, 11304-8, 51486-3, 90773-8 #### [facility] CLIA [id number] [address] [place], [place] [address] [facility] OF [place] Epithelial cells LM.HPF (Urine sed) [#/Area] Few Normal [facility] Comment on above: Order Comment: Speci men Type: BLOOD SPECIMEN Ordering Facility: [facility] Address: [address] [place] [address] Performed By: #### Farshad SHORT, 3016-3, 84576-9, 70585-9, 07850-3 #### [facility] CLIA [id number] [address] [place], [place] [address] [facility] OF [place] Glucose Test strip (U) [Mass/Vol] 1+ Abnormal Negative [facility] Comment on above: Order Comment: Speci men Type: BLOOD SPECIMEN Ordering Facility: [facility] Address: [address] [place] [address] Performed By: #### Farshad SHORT, 3016-3, 68760-6, 46638-9, 51453-7 #### [facility] CLIA [id number] [address] [place], [place] [address] [place] Hemoglobin Ql (U) 2+ Abnormal Negative [facility] Comment on above: Order Comment: Speci men Type: BLOOD SPECIMEN Ordering Facility: [facility] Address: [address] [place] [address] Performed By: #### Farshad SHORT, 3016-3, 74523-9, 53958-2, 86816-6 #### [facility] CLIA [id number] [address] [place], [place] [address] [place] Ketones Ql (U) Trace Abnormal Negative [facility] Comment on above: Order Comment: Speci men Type: BLOOD SPECIMEN Ordering Facility: [facility] Address: [address] [place] [address] Performed By: #### Farshad SHORT, 3016-3, 55068-4, 82891-1, 98356-7 #### [facility] CLIA [id number] [address] [place] [address] [place] Leukocyte esterase Test strip Ql (U) 3+ Abnormal Negative [facility] Comment on above: Order Comment: Speci men Type: BLOOD SPECIMEN Ordering Facility: [facility] Address: [address] [place] [address] Performed By: #### Farshad SHORT, 3016-3, 61150-4, 64620-4, 96047-5 #### [facility] CLIA [id number] [address] [place] [address] [place] Nitrite Ql (U) Positive Abnormal Negative [facility] Comment on above: Order Comment: Speci men Type: BLOOD SPECIMEN Ordering Facility: [facility] Address: [address] [place] [address] Performed By: #### Farshad SHORT, 3016-3, 79581-9, 91070-5, 69352-3 #### [facility] CLIA [id number] [address] [place] [address] [place] pH (U) 5.0 [pH] Normal 5.0-8.0 [facility] Comment on above: Order Comment: Speci men Type: BLOOD SPECIMEN Ordering Facility: [facility] Address: [address] [place] [address] Performed By: #### Farshad SZYMANSKIP, 3016-3, 68161-5, 73606-6, 63132-5 #### [facility] CLIA [id number] [address] [place], [place] [address] [place] Protein (U) [Mass/Vol] 2+ Abnormal Negative [facility] Comment on above: Order Comment: Speci men Type: BLOOD SPECIMEN Ordering Facility: [facility] Address: [address] [place] [address] Performed By: #### Farshad DEJA, 3016-3, 16796-4, 53818-5, 19522-4 #### [facility] CLIA [id number] [address] [place] [address] [place] RBC LM.HPF (Urine sed) [#/Area] 6-10 /HPF Abnormal 0-3 /HPF [facility] Comment on above: Order Comment: Speci men Type: BLOOD SPECIMEN Ordering Facility: [facility] Address: [address] [place] [address] Performed By: #### Farshad SHORT, 3016-3, 62846-1, 31121-9, 21536-2 #### [facility] CLIA [id number] [address] [place] [address] [place] Specific gravity (U) [Rel density] 1.017 Normal 1.005-1.030 [facility] Comment on above: Order Comment: Speci men Type: BLOOD SPECIMEN Ordering Facility: [facility] Address: [address] [place] [address] Performed By: #### Farshad DEJA, 3016-3, 85687-2, 51282-3, 06035-5 #### [facility] CLIA [id number] [address] [place] [address] [place] Urobilinogen Ql (U) 2+ Abnormal Negative [facility] Comment on above: Order Comment: Speci men Type: BLOOD SPECIMEN Ordering Facility: [facility] Address: [address] [place] [address] Performed By: #### Farshad DEJA, 3016-3, 61814-4, 73363-8, 18277-3 #### [facility] CLIA [id number] [address] [place], [place] [address] [place] WBC LM.HPF (Urine sed) [#/Area] /[HPF] Abnormal 0-5 /HPF [facility] Comment on above: Order Comment: Speci men Type: BLOOD SPECIMEN Ordering Facility: [facility] Address: [facility] [place] [address] Performed By: #### H NESSAP, 3016-3, 84350-2, 64741-3, 76114-9 #### [facility] CLIA [id number] [address] [place] US KIDNEY/BLADDERon 08-17-20 US KIDNEY/BLADDER * * *Final Report* * * DATE OF EXAM: Aug 17 2024 3:13PM U 1055 - US KIDNEY/BLADDER / PROCEDURE REASON: Nephrolithiasis * * * * Physician Interpretation * * * * EXAMINATION: RENAL ULTRASOUND CLINICAL HISTORY: Nephrolithiasis TECHNIQUE: Sonography of the kidneys and urinary bladder was performed. Images were obtained and stored in a permanent archive. MQ: UR_1 COMPARISON: None RESULT: Right Kidney: -Renal length: 9.7 cm -Parenchyma: Normal parenchymal echogenicity. Normal parenchymal thickness. -Collecting system: No hydronephrosis. -Calculus: No echogenic, shadowing calculus. -Lesion: None. Left Kidney: -Renal length: 11.2 cm -Parenchyma: Normal parenchymal echogenicity. Normal parenchymal thickness. -Collecting system: No hydronephrosis. -Calculus: No echogenic, shadowing calculus. -Lesion: None. Bladder: Normal sonographic appearance. IMPRESSION: NORMAL SONOGRAPHIC APPEARANCE OF KIDNEYS AND BLADDER. Director Group Sales: [employer] Transcribe Date/Time: Aug 17 2024 5:49P Dictated by : KELSY DAVILA MD This examination was interpreted and the report reviewed and electronically signed by: KELSY DAVILA MD on Aug 17 2024 5:50PM EST [id number] Normal [facility] 12 Lead EKGon 08-16-2024 12 Lead EKG [facility] Cardi[facility] Services [address] [place] [address] 12 Lead EKG 08/16/24 1151 MR#: [id number] Acct: [id number] Name: JESSICA LAZCANO Rep #: [id number] : 1950 73 From: James Venegas MD Attending Dr: Status: DEP ER Ordering Dr: Charanjit Rivera MD Date: 08/16/24 Location: ED Sex: F C Admitted: Test Reason : N/V Blood Pressure : / mmHG Vent. Rate : 106 BPM Atrial Rate : 106 BPM P-R Int : 134 ms QRS Dur : 082 ms QT Int : 336 ms P-R-T Axes : 047 061 062 degrees QTc Int : 446 ms Sinus tachycardia Nonspecific ST abnormality Abnormal ECG Confirmed by JAMES VENEGAS MD ([id number]), image editor CAYLA HSIEH ([id number]) on 08/21/2024 9:06:58 AM Referred By: BB Confirmed By:JAMES VENEGAS MD 08/21/24906 Date James Venegas MD CC: Dr. Charanjit Rivera MD; Dr. Shahid Vera MD Signed Normal [facility] 12 Lead EKG [facility] [address] [place] [address] 12 Lead EKG 08/16/24 1149 MR#: [id number] Acct: [id number] Name: JESSICA LAZCANO Rep #: [id number] : 1950 73 From: James Venegas MD Attending Dr: Status: DEP ER Ordering Dr: Charanjit Rivera MD Date: 08/16/24 Location: ED Sex: F C Admitted: Test Reason : N/V Blood Pressure : / mmHG Vent. Rate : 197 BPM Atrial Rate : 178 BPM P-R Int : 094 ms QRS Dur : 074 ms QT Int : 272 ms P-R-T Axes : 049 063 193 degrees QTc Int : 492 ms Critical Test Result: High HR Atrial Tachycardia with degeneration to Aberrancy Cannot exclude VTach Undetermined rhythm ST T wave abnormality, consider inferolateral ischemia Abnormal ECG Confirmed by JAMES VENEGAS MD ([id number]), image editor ADRIAN COVINGTON ([id number]) on 08/20/2024 1:59:54 PM Referred By: Confirmed By:JAMES VENEGAS MD 08/20/24 1400 Date James Venegas MD CC: Dr. Charanjit Rivera MD; Dr. Shahid Vera MD Signed Normal [facility] Basic Metabolic Profile (BMP )on 08-16-2024 BUN/CRE 12.9 RATIO Normal 10-20 [facility] Comment on above: Order Comment: 1Y Performed By: #### L 501.5425, L500.2500, L100.0100 ####[facility] [address] [place], [address] CA,Total 8.9 mg/dL Normal 8.5-10.1 [facility] Comment on above: Order Comment: 1Y Performed By: #### L 501.5425, L500.2500, L100.0100 ####[facility] [address] [place], [address] Chloride [Moles/Vol] 100 mmol/L Normal 98-107 [facility] Comment on above: Order Comment: 1Y Performed By: #### L 501.5425, L500.2500, L100.0100 ####[facility] [address] [place], [address] CO2 [Moles/Vol] 16.0 mmol/L Low 21.0-32.0 [facility] Comment on above: Order Comment: 1Y Performed By: #### L 501.5425, L500.2500, L100.0100 ####[facility] [address] [place], [address] Creatinine [Mass/Vol] 1.16 mg/dL High 0.55-1.02 [facility] Comment on above: Order Comment: 1Y Result Comment: The validity of the calculated GFR GFRAA in patients over 70 years has not been determined. Clinical correlation is essential. Performed By: #### L 501.5425, L500.2500, L100.0100 ####[facility] [address] [place], [address] ECRCL 39.82 ml/min Normal [facility] Comment on above: Order Comment: 1Y Performed By: #### L 501.5425, L500.2500, L100.0100 ####[facility] [address] [place], [address] EST GFR - AA 59 mL/min Low >60 [facility] Comment on above: Order Comment: 1Y Result Comment: Afri can [place] GFR Calc Performed By: #### L 501.5425, L500.2500, L100.0100 ####[facility] [address] [place], [address] GAP 16 High 5-15 [facility] Comment on above: Order Comment: 1Y Performed By: #### L 501.5425, L500.2500, L100.0100 ####[facility] [address] [place], [address] GFR/1.73 sq M.predicted among non-blacks MDRD (S/P/Bld) [Vol rate/Area] 49 mL/min/{1.73_m2} Low >60 [facility] Comment on above: Order Comment: 1Y Result Comment: Non- GFR Calc Performed By: #### L 501.5425, L500.2500, L100.0100 ####[facility] [address] [place], [address] Glucose [Mass/Vol] 142 mg/dL High 74-106 [facility] Comment on above: Order Comment: 1Y Result Comment: Fast ing Glucose result greater than or equal to 126 mg/dL suggests DIABETES MELLITUS per A.D.A. criteria. Performed By: #### L 501.5425, L500.2500, L100.0100 ####[facility] [address] [place], [address] Potassium [Moles/Vol] 3.1 mmol/L Low 3.5-5.1 [facility] Comment on above: Order Comment: 1Y Performed By: #### L 501.5425, L500.2500, L100.0100 ####[facility] [address] [place], [address] Sodium [Moles/Vol] 132 mmol/L Low 136-145 [facility] Comment on above: Order Comment: 1Y Performed By: #### L 501.5425, L500.2500, L100.0100 ####[facility] [address] [place], [address] Urea nitrogen [Mass/Vol] 15 mg/dL Normal 7-18 [facility] Comment on above: Order Comment: 1Y Performed By: #### L 501.5425, L500.2500, L100.0100 ####[facility] [address] [place], [address] Basic metabolic 2000 panelon 08-16-2024 Anion gap [Moles/Vol] 11 mmol/L Normal 5-16 [facility] Comment on above: Order Comment: Speci men Type: BLOOD SPECIMEN Ordering Facility: [facility] Address: [address] [place] [address] Performed By: #### Farshad SHORT, 3016-3, 86497-7, 47330-2, 91646-0 #### [facility] CLIA [id number] [address] [place] [address] [place] Calcium [Mass/Vol] 8.3 mg/dL Low 8.5-10.5 [facility] Comment on above: Order Comment: Speci men Type: BLOOD SPECIMEN Ordering Facility: [facility] Address: [address] [place] [address] Performed By: #### Farshad SHORT, 3016-3, 82540-7, 70841-2, 78330-4 #### [facility] CLIA [id number] [address] [place] [address] [place] Chloride [Moles/Vol] 100 mmol/L Normal 98-107 [facility] Comment on above: Order Comment: Speci men Type: BLOOD SPECIMEN Ordering Facility: [facility] Address: [address] [place] [address] Performed By: #### Farshad SHORT, 3016-3, 19727-6, 75553-5, 45290-3 #### [facility] CLIA [id number] [address] [place] [address] [place] CO2 [Moles/Vol] 21 mmol/L Normal 21-32 [facility] Comment on above: Order Comment: Speci men Type: BLOOD SPECIMEN Ordering Facility: [facility] Address: [address] [place] [address] Performed By: #### Frashad SHORT, 3016-3, 60449-7, 65740-6, 01368-6 #### [facility] CLIA [id number] [address] [place], [place] [id number] [place] Creatinine [Mass/Vol] 0.75 mg/dL Normal 0.51-0.95 [facility] Comment on above: Order Comment: Speci men Type: BLOOD SPECIMEN Ordering Facility: [facility] Address: [address] [place] [address] Result Comment: Isabella ents receiving either N-Acetylcysteine (NAC) or Metamizole prior to venipuncture, may have falsely depressed results. Performed By: #### Farshad SHORT, 3016-3, 68379-7, 80238-9, 77928-9 #### [facility] CLIA [id number] [address] [place], [place] [address] [place] Creatinine and Glomerular filtration rate.predicted panel (S/P/Bld) 85 mL/min/1.73m??? Normal >=60 [facility] Comment on above: Order Comment: Speci men Type: BLOOD SPECIMEN Ordering Facility: [facility] Address: [address] [place] [address] Result Comment: Sameera mated Glomerular Filtration Rate (eGFR) is calculated using the 2020 CKD-EPI creatinine equation. This equation utilizes serum creatinine, sex, and age as parameters. The creatinine assay has traceable calibration to isotope dilution-mass spectrometry. Refer to KDIGO guidelines for clinical interpretation. In patients with unstable renal function, e.g. those with acute kidney injury, the eGFR may not accurately reflect actual GFR. Performed By: #### H NESSAP, 3016-3, 37873-0, 14244-3, 10462-1 #### [facility] CLIA [id number] [address] [place] [address] [place] Glucose [Mass/Vol] 128 mg/dL High 70-100 [facility] Comment on above: Order Comment: Stacey goldman Type: BLOOD SPECIMEN Ordering Facility: [facility] Address: [address] [place] [address] Result Comment: The [place] Diabetes Association (ADA) provides guidance for cutoff values for fasting glucose and random glucose. The ADA defines fasting as no caloric intake for at least 8 hours. Fasting plasma glucose results between 100 to 125 mg/dL indicate increased risk for diabetes (prediabetes). Fasting plasma glucose results greater than or equal to 126 mg/dL meet the criteria for diagnosis of diabetes. In the absence of unequivocal hyperglycemia, results should be confirmed by repeat testing. In a patient with classic symptoms of hyperglycemia or hyperglycemic crisis, random plasma glucose results greater than or equal to 200 mg/dL meet the criteria for diagnosis of diabetes. Reference: Standards of Medical Care in Diabetes 2016, [place] Diabetes Association. Diabetes Care. 2016.39(Suppl 1). Results may be falsely elevated after the administration of Sulfapyridine. Results may be falsely depressed after the administration of Sulfasalazine. Performed By: #### H NESSAP, 3016-3, 93090-8, 33168-6, 51537-1 #### [facility] CLIA [id number] [address] [place], [place] [address] [place] Potassium [Moles/Vol] 3.8 mmol/L Normal 3.5-5.1 [facility] Comment on above: Order Comment: Stacey goldman Type: BLOOD SPECIMEN Ordering Facility: [facility] Address: [address] [place] [address] Performed By: #### Farshad SZYMANSKISly, 3016-3, 44469-1, 30498-6, 69777-2 #### [facility] CLIA [id number] [address] [place] [address] [place] Sodium [Moles/Vol] 132 mmol/L Low 136-145 [facility] Comment on above: Order Comment: Speci men Type: BLOOD SPECIMEN Ordering Facility: [facility] Address: [address] [place], [place] [address] [id number] Performed By: #### Farshad SZYMANSKISly, 3016-3, 68893-1, 76859-3, 54354-5 #### [facility] CLIA [id number] [address] [place] [address] [place] Urea nitrogen [Mass/Vol] 13 mg/dL Normal 7-26 [facility] Comment on above: Order Comment: Speci men Type: BLOOD SPECIMEN Ordering Facility: [facility] Address: [address] [place], [place] [address] [id number] Performed By: #### Farshad SZYMANSKISly, 3016-3, 04683-1, 36445-9, 40540-1 #### [facility] CLIA [id number] [address] [place], [place] [id number] [place] CBC W/Diff, Automatedon 09-2 Absolute Lymph 1.27 X10 3/uL Normal 0.83-4.51 [facility] Comment on above: Performed By: #### L 501.5425, L500.2500, L100.0100 #### [facility] [address] [place], [address] Absolute Neut 12.1 X10 3/uL High 2.0-7.7 [facility] Comment on above: Performed By: #### L 501.5425, L500.2500, L100.0100 #### [facility] [address] [place], [address] Basophils/100 WBC (Bld) 0.1 % Normal 0-1 [facility] Comment on above: Performed By: #### L 501.5425, L500.2500, L100.0100 #### [facility] [address] [place], [address] Eosinophils/100 WBC (Bld) 0.0 % Normal 0-5 [facility] Comment on above: Performed By: #### L 501.5425, L500.2500, L100.0100 #### [facility] [address] [place], [address] Erythrocyte distribution width (RBC) [Ratio] 12.0 % Normal 11.6-14.6 [facility] Comment on above: Performed By: #### L 501.5425, L500.2500, L100.0100 #### [facility] [address] [place], [address] Hematocrit (Bld) [Volume fraction] 36.7 % Low 37-47 [facility] Comment on above: Performed By: #### L 501.5425, L500.2500, L100.0100 #### [facility] [address] [place], [address] Hemoglobin (Bld) [Mass/Vol] 12.6 g/dL Normal 12.0-15.0 [facility] Comment on above: Performed By: #### L 501.5425, L500.2500, L100.0100 #### [facility] [address] [place], [address] IG% 0.600 Normal 0.0-0.9 [facility] Comment on above: Result Comment: IG% - Immature Granulocytes (promyelocytes, myelocytes and metamyelocytes) > 1% indicates that a LEFT SHIFT is Present. Performed By: #### L 501.5425, L500.2500, L100.0100 #### [facility] [address] [place], [address] Lymphocytes/100 WBC (Bld) 8.6 % Low 19-41 [facility] Comment on above: Performed By: #### L 501.5425, L500.2500, L100.0100 #### [facility] [address] [place], [address] MCH (RBC) [Entitic mass] 29.2 pg Normal 27.0-32.0 [facility] Comment on above: Performed By: #### L 501.5425, L500.2500, L100.0100 #### [facility] [address] [place], [address] MCHC (RBC) [Mass/Vol] 34.3 g/dL Normal 32-36 [facility] Comment on above: Performed By: #### L 501.5425, L500.2500, L100.0100 #### [facility] [address] [place], [address] MCV (RBC) [Entitic vol] 85.0 fL Normal 81-99 [facility] Comment on above: Performed By: #### L 501.5425, L500.2500, L100.0100 #### [facility] [address] [place], [address] Monocytes/100 WBC (Bld) 8.5 % Normal 0-10 [facility] Comment on above: Performed By: #### L 501.5425, L500.2500, L100.0100 #### [facility] [address] [place], [address] Neutrophils/100 WBC (Bld) 82.2 % High 47-70 [facility] Comment on above: Performed By: #### L 501.5425, L500.2500, L100.0100 #### [facility] [address] [place], [address] Nucleated RBC (Bld) [#/Vol] 0 10*3/uL Normal 0-5 [facility] Comment on above: Performed By: #### L 501.5425, L500.2500, L100.0100 #### [facility] [address] [place], [address] Platelet mean volume (Bld) [Entitic vol] 11.1 fL Normal 6.2-12.0 [facility] Comment on above: Performed By: #### L 501.5425, L500.2500, L100.0100 #### [facility] [address] [place], [address] Platelets (Bld) [#/Vol] 268 10*3/uL Normal 150-450 [facility] Comment on above: Performed By: #### L 501.5425, L500.2500, L100.0100 #### [facility] [address] [place], [address] RBC (Bld) [#/Vol] 4.32 10*6/uL Normal 4.2-5.4 [facility] Comment on above: Performed By: #### L 501.5425, L500.2500, L100.0100 #### [facility] [address] [place], [address] RDW SD 37.0 fl Normal 35.1-43.9 [facility] Comment on above: Performed By: #### L 501.5425, L500.2500, L100.0100 #### [facility] [address] [place], [address] WBC (Bld) [#/Vol] 14.7 10*3/uL High 4.4-11.0 [facility] Comment on above: Performed By: #### L 501.5425, L500.2500, L100.0100 #### [facility] [address] [place], [address] Madeleine 08-16-2024 CNPN Telephone (FVPRAD) JESSICA LAZCANO ([id number]) 1950 F Date Time Provider Department 08/16/24 KENNETH RAYMOND FVPRALaura During your visit today, we recorded the following information about you: Kenneth Raymond MD 08/16/2024 6:36 PM Signed Received transfer center [facility] from [facility] 08/16: Dx: near syncope, NSVT, Afib 73 yo F with hx of CVA without neuro deficits who presented to OSH with near syncope. Tele revealed NSVT vs A-fib. Pt was evaluated by OSH fumigator and sterilizer, plan for admission and possible LHC. Pt was also started on amiodarone gtt. Pt is accepted to [facility]. Kenneth Raymond MD 6:36 PM Allergies As of Date: 08/16/2024 Noted Allergy Reaction LIPITOR (ATORVASTATIN) 03/13/2023 4 - Hives Date Reviewed: 08/16/2024 Reviewed by: Joe Watts MD - Fully Assessed Reason for Visit: Hospital To Hospital [[id number]] Prescriptions as of 08/16/2024 - nitrofurantoin monohydrate and macrocrystal (MACROBID) 100 mg capsule Take 1 capsule by mouth two times a day with meals for 7 days. - traZODone (DESYREL) 50 mg tablet Take 1 tablet by mouth daily at bedtime. - alendronate (FOSAMAX) 70 mg tablet Take 1 tablet by mouth one time a week. Take with a full glass of water, on an empty stomach; do NOT lie down for 30minutes. - amLODIPine (NORVASC) 10 mg tablet Take 1 tablet by mouth once daily. - lisinopril (ZESTRIL) 5 mg tablet Take 1 tablet by mouth once daily. - metoprolol succinate ER (TOPROL XL) 50 mg 24 hr tablet Take 1 tablet by mouth once daily. - rosuvastatin (CRESTOR) 20 mg tablet Take 1 tablet by mouth daily at bedtime. - busPIRone (BUSPAR) 5 mg tablet Take 1 tablet by mouth two times a day. - diphenhydrAMINE (BENADRYL) 25 mg capsule Take 25 mg by mouth every 6 hours as needed. - aspirin, enteric coated (ASPIRIN, ENTERIC COATED) 81 mg EC tablet Take 1 tablet by mouth once daily. Meds Comments as of 12/23/2017: Only taking Tessalon perle And Mucinex (last dose this morning) 2-3 S. Joe Problem List As Of Date 08/16/2024 Noted Resolved ADJUSTMENT DISORDER WITH DEPRESSED MOOD [F43.21] HYPERLIPIDEMIA NEC/NOS [E78.5] Other and unspecified angina pectoris [I20.9] 08/01/2007 03/14/2023 TM JOINT DISORDER, UNSPEC [M26.609] 06/12/2008 ROTATOR CUFF SYND NOS [M71.9, M67.919] 06/27/2009 Major Depressive Disorder [F32.9] 03/31/2010 Essential Hypertension, Benign [I10] 06/07/2010 Obesity [E66.9] 12/11/2012 History of melanoma [Z85.820] 10/15/2014 Right hemiparesis (HCC) [G81.91] 03/14/2023 Cerebrovascular accident (CVA) (HCC) [I63.9] 04/07/2023 Anxiety [F41.9] 05/15/2023 Overweight (BMI 25.0-29.9) [E66.3] 05/15/2023 Paroxysmal ventricular tachycardia (HCC) [I47.2*08/16/2024 Encounter Status:Closed by KENNETH RAYMOND on 08/16/[address] [facility] [address] CHEST W IVCON PEon 2023 CT CHEST W IVCON PE * * *Final Report* * * DATE OF EXAM: Aug 16 2024 10:37PM [facility] 0540 - CT CHEST W IVCON PE / PROCEDURE REASON: Pulmonary embolism (PE) suspected, high prob * * * * Physician Interpretation * * * * EXAMINATION: CHEST CT WITH CONTRAST (PULMONARY EMBOLISM PROTOCOL) CLINICAL HISTORY: Chest pain. Pulmonary embolus suspected. Technique: Spiral CT acquisition of the chest from the thoracic inlet to the upper abdomen following IV contrast. Axial 1 and 3 mm thick slices plus coronal and sagittal reformatted images. MQ: CTCP_5 Contrast: 100 mL Omnipaque [address] Radiation dose: Integrated Dose-length product (DLP) for this visit = 489.81 mGy*cm CT Dose Reduction Employed: Automated exposure control(AEC) and iterative recon Comparison: No relevant prior studies available. RESULT: Limitations: None. Evaluation for thromboembolic disease: - Right heart chambers: No thromboembolic disease. - Main pulmonary arteries: No thromboembolic disease. - Lobar pulmonary arteries: No thromboembolic disease. - Segmental pulmonary arteries: No thromboembolic disease. - Subsegmental pulmonary arteries: No thromboembolic disease. - Additional pulmonary artery findings: The main pulmonary artery is normal in caliber. Lines, tubes, and devices: None. Lung parenchyma and pleural space: Consolidative airspace disease in the LEFT lower lobe consistent with pneumonia. The RIGHT lung remains clear. No significant pleural effusion or pneumothorax. Lower neck, lymph nodes, and mediastinum: The imaged thyroid gland is normal. No lymphadenopathy in the supraclavicular, axillary, mediastinal, or hilar regions. Heart, pericardium, and thoracic vessels: The thoracic aorta is normal in caliber. The cardiac chambers are normal in size. No coronary artery atherosclerotic calcifications are noted, although the study is not optimized for coronary assessment. No pericardial effusion or thickening. Bones and soft tissues: No destructive bone lesion. Chest wall is unremarkable. Vertebral body heights are maintained. No acute abnormality of the superficial soft tissues. Upper abdomen: Small hiatal hernia. No acute abnormality in the imaged upper abdomen. Localizer images: No additional abnormality. IMPRESSION: No CT evidence of pulmonary embolism. Moderate severity LEFT lower lobe pneumonia. Director Group Sales: ZIGGY Transcribe Date/Time: Aug 16 2024 11:23P Dictated by : JULEE MCGARRY MD This examination was interpreted and the report reviewed and electronically signed by: JULEE MCGARRY MD on Aug 16 2024 11:31PM EST [id number] N [facility] Chest 1 View (Portable)on Chest 1 View (Portable) [facility] Imaging Services [address] [place] [address] Chest 1 View (Portable) MR#: [id number] Acct: [id number] Name: JESSICA LAZCANO Rep #: [id number] : 1950 F 73 From: Alvin chen MD PCP: Dr. Shahid Vera MD Status: REG ER Study: Chest 1 View (Portable) Date of Exam: 08/16/24 Exam# [id number] Ordering Dr: Charanjit Rivera MD [id number] STUDY: X-RAY CHEST REASON FOR EXAM: Female, 73 years old. Chest pain TECHNIQUE: Single AP portable view of the chest. COMPARISON: Comparison is made with prior study February 21, 2023. FINDINGS: EKG electrodes are seen The lungs are clear and expanded. There is no demonstrated pleural abnormality. Normal size heart. Normal mediastinum and jovita. Normal visualized pulmonary arteries. There is atherosclerotic calcification of the aortic arch with tortuosity. There are diffuse degenerative changes of the visualized thoracic spine. Normal visualized ribs, clavicles, and shoulders. There is no demonstrated abnormality of the visualized soft tissue structures of the upper abdomen. RAD/Chest 1 View (Portable) IMPRESSION: No acute abnormality is seen. Electronically Signed: Alvin Llanos MD at 12:21 EDT Reading Location ID and State: [address] [place] [place] [address] , Service support , CC: Dr. Charanjit Rivera MD; Dr. Shahid Vera MD Director Group Sales: Signed Normal [facility] Emergency Department Summary on 08-16-2024 Emergency Department Summary [facility] Medical Records Department [address] [place] [address] Emergency Department Summary 08/16/24 MR#: [id number] Acct: [id number] Name: JESSICA LAZCANO Rep #: [id number] : 1950 73 From: Charanjit Rivera MD PCP: Dr. Shahid Vera MD Status:ADM IN Location: [facility] [id number] Charanjit Rivera MD on 08/16/24 at 1650 Unbeknownst to us until later, [facility] does not have an available bed and put the patient on a waiting list. Patient and family were amenable to checking other hospitals. I checked with [facility], accepted to the CCU there Dr. Watts and they do have an available bed. She asked that I add on TSH and magnesium levels which I did. Those are pending. 08/16/24 165 Cosigner Signature (if applicable): cc: Dr. Shahid Vera MD * Signed ADDENDUM by Dr. Charanjit Rivera MD on 08/16/24 at 1511 When we went to admit the patient, she told the hospitalist that her insurance does not cover her as an inpatient at this hospital, which we did not know until that point. She is asking for a transfer to a place that would be covered by her insurance and she is requesting [facility]. I spoke with [facility] Dr. Raymond, internal medicine, she was covering for [facility] however they do not have the ability to perform heart catheterizations, so she recommended that we transfer the patient to [facility] where she also was covering and would except her there, patient and family are comfortable with that. She has that I discussed with her fumigator and sterilizer which I did. Once patient got established on amiodarone drip, she stopped having episodes. Disposition: Transferred to [facility] 08/16/241510 Cosigner Signature (if applicable): cc: Dr. Shahid Vera MD * Signed HPI History of Present Illness Chief Complaint: Palpitations Informant: patient and EMS Narrative Narrative: 73-year-old female called EMS this morning because she felt she was going to pass out and very weak. She states she felt okay yesterday, she went to the doctor couple days ago for a routine appointment had some blood work and urinalysis and the urine looked infected and she was put on nitrofurantoin which is the only new medication she is taking for the last couple days. Other than that she has a history of stroke, she has been on aspirin, blood pressure medication ever since then, she was on no medications prior to that. She denies any chest discomfort or dyspnea today, she felt nauseated but no vomiting no abdominal pain. She denies having any urinary symptoms in the last week. She denies having syncope. [facility] Medical History History of melanoma Essential hypertension Temporomandibular joint disorder Angina pectoris, unspecified Anxiety Multiple food allergies History of major depression Hyperlipidemia Prediabetes Obesity (BMI 35.0-39.9 without comorbidity) Hypertension Home Medications ???Medication ???Instructions ???Recorded ???Last Taken ???Type acetaminophen 325 mg tablet 650 mg (2 x 325 mg) PO Q6H PRN PRN 02/22/23 Unknown Rx Pain 1-10 Or Fever>100.7 #0 tabs aspirin 81 mg tablet,delayed 81 mg PO BREAKFAST heart health 02/22/23 Unknown History release amlodipine 10 mg tablet 10 mg PO DAILY BP #30 tabs 03/06/23 Unknown Rx buspirone 5 mg tablet 5 mg PO BID #60 tabs 03/06/23 Unknown Rx clopidogrel 75 mg tablet (Plavix) 75 mg PO DAILY Check with primary 03/06/23 Unknown Rx doctor #14 tabs diphenhydramine HCl 25 mg capsule 25 mg PO Q6H PRN PRN Itching #1 cap 03/06/23 Unknown Rx (Banophen) famotidine 20 mg tablet (Pepcid) 20 mg PO BID #30 tabs 03/06/23 Unknown Rx lisinopril 5 mg tablet 5 mg PO DAILY #30 tabs 03/06/23 Unknown Rx metoprolol succinate 50 mg 50 mg PO QHS #30 tabs 03/06/23 Unknown Rx tablet,extended release 24 hr pravastatin 40 mg tablet 40 mg PO QHS #30 tabs 03/06/23 Unknown Rx Allergy/AdvReac Type Severity Reaction Status Date / Time atorvastatin (From Lipitor) Allergy Hives Verified 03/13/23 09:09 citric acid Allergy Hives Verified 03/13/23 09:09 Food Allergies: Uncoded Allergy Hives Verified 03/13/23 09:09 rice Allergy Hives Verified 03/13/23 09:09 wheat Allergy Hives Verified 03/13/23 09:09 Family History (Updated 03/13/23 @ 09:26 by Ruben Tan) Brother Heart disease Brother Heart disease Mother Diabetes Cancer Father Cancer Sister Cancer Heart disease Surgical History History of appendectomy Hx of cardiac cath Social History adopted: No household members: none housing: house number of children: 1 current occupational statu (more content not included)... Normal [facility] HIGH SENSITIVITY TROPONIN Io n 08-16-2024 Tropinin I.cardiac panel High sensitivity method 12.3 pg/mL Normal 0.0-34.0 [facility] Comment on above: Order Comment: Speci men Type: BLOOD SPECIMEN Ordering Facility: [facility] Address: [address] [place] [address] Performed By: #### H STRO, 3016-3, 41406-9, 07916-0, 37589-6 #### [facility] CLIA [id number] [address] [place] [address] [place] HISTORY PHYSICALon HISTORY PHYSICAL HNO ID: [id number] Author: JOE WATTS MD Service: Hospital Medicine Author Type: Physician Type: H&P Filed: 08/16/2024 21:48 Note Text: HISTORY AND PHYSICAL EXAMINATION PATIENT NAME: Jessica Lazcano SERVICE DATE AND TIME: 08/16/2024 4:51 PM PRIMARY CARE PHYSICIAN: Ceci Vera MD CHIEF COMPLAINT: Near syncope today at home. HPI: This is a 73 year old female with a PMH of hypertension, remote CVA, depression and anxiety who presents to the outside ER with near syncope today. During her evaluation there she had a few cardiac arrhythmias and at one time appeared to be in V. tach that resolved on its own. Cardiology at their hospital feels patient needs admitted to the hospital for further monitoring and treatment. Unfortunately the patient's insurance does not cover the outside hospital for admissions so we were requested to except her in transfer. While in the ER, was started on amiodarone drip. After discussion with the ED Physician, it was agreed the patient will need ADMITTED to the CCU. for paroxysmal V. tach. Diet: Cardiac <4 g sodium diet Fluids/Electrolytes: NONE, IV LOCKED BMI: 30-34.9 (Obese, Class I- E66.0) Nutritional Assessment: Normal Isolation or Other special Considerations: Does not need any isolation. Activity AND Functional Capacity/Limitations at home: Independent Activity on Admission: Up with assist Pressure injuries POA: None Devices Present: Peripheral IV Telemetry DVT Prophylaxis: Encourage early and ongoing ambulation/mobility as appropriate and tolerated by patient Will initiate Heparin 5,000 units SQ q12hrs, if patient requires > 24hr hospital stay or has a change in risk factors for DVT Code Status: FULL CODE Diagnostic tests reviewed for today's visit: Most recent labs and imaging results Additional external medical records were reviewed from EMR and/or that accompanied the patient. I have also reviewed the patients prescription fill history for the past six months. ASSESSMENT/PLAN: Principal problem: 1. Parosysmal V. tach - Admit to the hospital to the CCU - Continue amiodarone drip -Check TSH - Check mag level - Recheck BMP to see of potassium is correcting and kidney function is improving - Consult cardiology -Will have outside hospital obtain mag level and TSH prior to transfer. -Cough since having small amount of emesis prior to transfer here to our ER - Check CT of the chest rule out PE and/or aspiration pneumonia - Protonix 40 mg daily - Tessalon Perles as needed -Bedside IS use - Check sputum culture and urine antigens for strep pneumonia and legionnaires Additional Problems: 2. Hypertension - Continue home meds 3. Anxiety/depression - Continue home meds 4. UTI - Recently placed on Macrobid and has been taking for the past 2 days - Urinalysis at outside ER did not appear infected so hold on further dosing of antibiotics. 5. PATITO - Creatinine elevated 1.16. Baseline appears to be around 0.84 - Gentle hydration overnight - Repeat a BMP in a.m. 6. AGMA at outlying facility -Lactate normal - ? Due to ischemic from arrhythmia - Repeat BMP now and reassess PAST MEDICAL HISTORY Diagnosis Date Adjustment disorder with depressed mood Anxiety Carotid stenosis, bilateral 05/30/2023 40-59% CVA (cerebral vascular accident) (HCC) 02/2023 History of endometriosis History of melanoma 10/15/2014 HLD (hyperlipidemia) HTN (hypertension) Osteoporosis 06/12/2023 Other and unspecified hyperlipidemia Overweight (BMI 25.0-29.9) Right sided weakness PAST SURGICAL HISTORY Procedure Laterality Date APPENDECTOMY 1998 SECTION HX PAST SURGICAL HISTORY OF exlporatory laparotomy STRESS ECHO FAMILY HISTORY Problem Relation Age of Onset Cancer Father lung cancer Diabetes Mother Cancer Mother lung cancer Heart Brother Heart Brother Cancer Sister cervical Heart Sister Diabetes Maternal Grandfather Heart Attack Maternal Grandfather Heart disease Maternal Grandmother Cancer Paternal Grandfather stomach Social History Tobacco Use Smoking status: Never Smokeless tobacco: Never Substance Use Topics Alcohol use: Not Currently Comment: less than monthly Drug use: No ALLERGIES Allergen Reactions Lipitor [Atorvastat* Hives HOME MEDICATIONS: nitrofurantoin monohydrate and macrocrystal (MACROBID) 100 mg capsuleTake 1 capsule by mouth two times a day with meals for 7 days.Disp: 14 capsuleRfl: 0 traZODone (DESYREL) 50 mg tabletTake 1 tablet by mouth daily at bedtime.Disp: 90 tabletRfl: 1 alendronate (FOSAMAX) 70 mg tabletTake 1 tablet by mouth one time a week. Take with a full glass of water, on an empty stomach; do NOT lie down for 30minutes.Disp: 12 tabletRfl: 3 amLODIPine (NORVASC) 10 mg tabletTake 1 tablet by mouth once daily.Disp: 90 tabletRfl: 1 lisinopril (ZESTRIL) 5 mg tabletTake 1 t (more content not included)... Normal [facility] L501.4020on 08-16-2024 TROPONIN-I HS 16 pg/mL Normal 3.0-54.0 [facility] Comment on above: Result Comment: Plea se Note: New Test Units and Gender Specific Reference Ranges. For more information see Policy Stat Procedure [employer] High Sensitivity Troponin (TNIH) and attachments. Performed By: #### L 501.4020 #### [facility] [address] [place], [address] L501.5425on 08-16-2024 TROPONIN-I HS 14 pg/mL Normal 3.0-54.0 [facility] Comment on above: Order Comment: 1Y Result Comment: Eugene novak Note: New Test Units and Gender Specific Reference Ranges. For more information see Policy Stat Procedure [employer] High Sensitivity Troponin (TNIH) and attachments. Performed By: #### L 501.5425, L500.2500, L100.0100 ####[facility] [address] [place], [address] Lactic Acidon 08-16-2024 Lactate [Moles/Vol] 1.5 mmol/L Normal 0.4-1.9 [facility] Comment on above: Order Comment: Y Performed By: #### L 503.6005, M200.1000 #### [facility] [address] [place], [address] Magnesiumon 08-16-2024 Magnesium [Mass/Vol] 1.6 mg/dL Normal 1.6-2.6 [facility] Comment on above: Performed By: #### L 501.5200, L501.9520 #### [facility] [address] [place], [address] Magnesium SerPl-mCncon 08-16 Magnesium [Mass/Vol] 1.7 mg/dL Normal 1.6-2.6 [facility] Comment on above: Order Comment: Speci men Type: BLOOD SPECIMEN Ordering Facility: [facility] Address: [address] [place] [address] Performed By: #### H NESSAP, 3016-3, 82638-8, 38943-7, 96659-8 #### [facility] CLIA [id number] [address] [place] [address] [place] NT-proBNP SerPl-mCncon 08-16 Natriuretic peptide.B prohormone N-Terminal [Mass/Vol] 1895 pg/mL High <125 [facility] Comment on above: Order Comment: Speci men Type: BLOOD SPECIMEN Ordering Facility: [facility] Address: [address] [place] [address] Result Comment: NT-p roBNP results of less than 300 pg/mL likely rules out acute congestive heart failure with 99% predictive value. NOTE: These cutoff points are suggested for ACUTE CHF DIAGNOSIS only Less than 50 years\X09\ Greater than 450 pg/mL 50 - 75 years\X09\\X09\ Greater than 900 pg/mL Greater than 75 years\X09\ Greater than 1800 pg/mL Performed By: #### Farshad SZYMANSKISly, 3016-3, 58001-0, 69994-6, 35979-9 #### [facility] CLIA [id number] [address] [place] [address] [place] TSH SerPl-aCncon 08-16-2024 TSH Qn 2.251 m[IU]/L Normal 0.358-3.740 [facility] Comment on above: Order Comment: Speci men Type: BLOOD SPECIMEN Ordering Facility: [facility] Address: [address] [place] [address] Result Comment: 3rd generation ultra sensitive TSH. Performed By: #### Farshad DEJA, 3016-3, 27435-3, 61421-2, 05219-8 #### [facility] CLIA [id number] [address] [place] [address] [place] Thyroid Stim Hormone (TSH)on 08-16-2024 TSH 1.370 uIU/mL Normal 0.358-3.740 [facility] Comment on above: Performed By: #### L 501.5200, L501.9520 #### [facility] [address] [place], [address] Urinalysis, Completeon 08-16 BACTERIA 1+ /hpf Normal None Seen [facility] Comment on above: Order Comment: CLEAN CATCH Performed By: #### L 400.0001 ####[facility] [address] [place], [address] EPI,SQUAMOUS 0 SEEN Normal 5-10 [facility] Comment on above: Order Comment: CLEAN CATCH Performed By: #### L 400.0001 ####[facility] [address] [place], [address] Mucus Ql (Urine sed) 0 SEEN Normal [facility] Comment on above: Order Comment: CLEAN CATCH Performed By: #### L 400.0001 ####[facility] [address] [place], [address] RBC 0 SEEN Normal 0-5 [facility] Comment on above: Order Comment: CLEAN CATCH Performed By: #### L 400.0001 ####[facility] [address] [place], [address] WBC 0 SEEN Normal 0-5 [facility] Comment on above: Order Comment: CLEAN CATCH Performed By: #### L 400.0001 ####[facility] [address] [place], [address] ALBUMIN/CREATININE RATIO, UR INEon 08-14-2024 Albumin DL <= 20 mg/L (U) [Mass/Vol] 146.6 mg/L Normal [facility] Comment on above: Order Comment: Speci men Type: URINE SPECIMENOrdering Facility: [facility] Address: [address] [place] [address] Performed By: #### U ACR ####[facility] [id number] [place] [address] [place] Albumin/Creatinine (U) [Mass ratio] 67 mg/g High <30 [facility] Comment on above: Order Comment: Speci men Type: URINE SPECIMENOrdering Facility: [facility] Address: [address] [place] [address] Result Comment: Adul t Male and Female Nephrotic Criteria: <30 mg/g is considered normal to mildly increased 30-300 mg/g is considered moderately increased >300 mg/g is considered severely increased KDIGO. (2013). KDIGO 2012 Clinical Practice Guideline for the Evaluation and Management of Chronic Kidney Disease. Official Journal of the International Society of Nephrology, 3(1), 1-150. Performed By: #### U ACR ####[facility] [id number] [address] [place] [address] [place] Creatinine (U) [Mass/Vol] 217.6 mg/dL Normal 20.0-300.0 [facility] Comment on above: Order Comment: Speci men Type: URINE SPECIMENOrdering Facility: [facility] Address: [address] [place] [address] Performed By: #### U ACR ####[facility] [id number] [facility]OSPITALLaura [facility] RIDGEKaryna [place] [id number] [place] CNPNon 08-14-2024 CNPN Telephone (FAMPWS) JESSICA LAZCANO ([id number]) 1950 F Date Time Provider Department 08/14/24 CECI VERA [facility] During your visit today, we recorded the following information about you: Ceci Vera MD 08/14/2024 2:57 PM Signed Patient's UA is positive for signs of UTI. Will order urine culture and start her on macrobid BID x 7 days. Push PO fluids, will call with results of culture. May need to come in to give new sample if lab cannot run culture on current sample. Elisabeth Solares LPN 08/14/2024 4:23 PM Signed Lab services telephoned, unable to do add on for culture. Patient telephoned and made aware of ATB sent over, picking up now. Patient retelephoned back to make aware she will need to come back in for the urine culture. No answer, will call back. IVETT Sandoval Stephanie, RN 08/14/2024 4:48 PM Signed Patient notified of provider's instructions. Patient verbalizes understanding. Cintia Elizondo RN Allergies As of Date: 08/14/2024 Noted Allergy Reaction LIPITOR (ATORVASTATIN) 03/13/2023 4 - Hives Date Reviewed: 06/24/2024 Reviewed by: Demetria Arboleda LPN - Fully Assessed Reason for Visit: Results [95] Primary Visit Diagnosis:Acute cystitis without hematuria [N30.00] Order(s):URINE CULTURE [SQURCUL] Order #: [id number] FUTURE nitrofurantoin monohydrate and macrocrystal (MACROBID) 100 mg capsuleTake 1 capsule by mouth two times a day with meals for 7 days.Disp: 14 capsuleRfl: 0 Prescriptions as of 08/14/2024 - nitrofurantoin monohydrate and macrocrystal (MACROBID) 100 mg capsule Take 1 capsule by mouth two times a day with meals for 7 days. - traZODone (DESYREL) 50 mg tablet Take 1 tablet by mouth daily at bedtime. - alendronate (FOSAMAX) 70 mg tablet Take 1 tablet by mouth one time a week. Take with a full glass of water, on an empty stomach; do NOT lie down for 30minutes. - amLODIPine (NORVASC) 10 mg tablet Take 1 tablet by mouth once daily. - lisinopril (ZESTRIL) 5 mg tablet Take 1 tablet by mouth once daily. - metoprolol succinate ER (TOPROL XL) 50 mg 24 hr tablet Take 1 tablet by mouth once daily. - rosuvastatin (CRESTOR) 20 mg tablet Take 1 tablet by mouth daily at bedtime. - busPIRone (BUSPAR) 5 mg tablet Take 1 tablet by mouth two times a day. - diphenhydrAMINE (BENADRYL) 25 mg capsule Take 25 mg by mouth every 6 hours as needed. - aspirin, enteric coated (ASPIRIN, ENTERIC COATED) 81 mg EC tablet Take 1 tablet by mouth once daily. Meds Comments as of 12/23/2017: Only taking Tessalon perle And Mucinex (last dose this morning) 2-3 S. Joe Problem List As Of Date 08/14/2024 Noted Resolved ADJUSTMENT DISORDER WITH DEPRESSED MOOD [F43.21] HYPERLIPIDEMIA NEC/NOS [E78.5] Other and unspecified angina pectoris [I20.9] 08/01/2007 03/14/2023 TM JOINT DISORDER, UNSPEC [M26.609] 06/12/2008 ROTATOR CUFF SYND NOS [M71.9, M67.919] 06/27/2009 Major Depressive Disorder [F32.9] 03/31/2010 Essential Hypertension, Benign [I10] 06/07/2010 Obesity [E66.9] 12/11/2012 History of melanoma [Z85.820] 10/15/2014 Right hemiparesis (HCC) [G81.91] 03/14/2023 Cerebrovascular accident (CVA) (HCC) [I63.9] 04/07/2023 Anxiety [F41.9] 05/15/2023 Overweight (BMI 25.0-29.9) [E66.3] 05/15/2023 Prescriptions ordered this encounter Disp Refills Start End NITROFURANTOIN MONOHYDRATE AND MACROCR* 14 c* 0 08/14/2024 08/21/2024 Route: ORAL Sig: Take 1 capsule by mouth two times a day with meals for 7 days. Encounter Status:Closed by CINTIA ELIZONDO on 08/14/24 Normal [facility] Comprehensive metabolic 2000 panelon 08-14-2024 Albumin [Mass/Vol] 4.6 g/dL Normal 3.9-4.9 [facility] Comment on above: Order Comment: Speci men Type: BLOOD SPECIMENOrdering Facility: [facility] Address: [address] [place] [address] Performed By: #### 2 4323-8 ####[facility] [id number] [place] [address] [place] ALP [Catalytic activity/Vol] 40 U/L Normal 34-123 [facility] Comment on above: Order Comment: Speci men Type: BLOOD SPECIMENOrdering Facility: [facility] Address: [address] [place] [address] Performed By: #### 2 4323-8 ####[facility] [id number] [place] [address] [place] ALT [Catalytic activity/Vol] 11 U/L Normal 7-38 [facility] Comment on above: Order Comment: Speci men Type: BLOOD SPECIMENOrdering Facility: [facility] Address: [address] [place] [id number] Performed By: #### 2 4323-8 ####[facility] [id number] [place] [id number] [place] Anion gap [Moles/Vol] 14 mmol/L Normal 8-15 [facility] Comment on above: Order Comment: Speci men Type: BLOOD SPECIMENOrdering Facility: [facility] Address: [address] [place] [address] Performed By: #### 2 4323-8 ####[facility] [id number] [place] [address] [place] AST [Catalytic activity/Vol] 17 U/L Normal 13-35 [facility] Comment on above: Order Comment: Speci men Type: BLOOD SPECIMENOrdering Facility: [facility] Address: [address] [place] [address] Performed By: #### 2 4323-8 ####[facility] [id number] [place] [address] [place] Bilirubin [Mass/Vol] 0.6 mg/dL Normal 0.2-1.3 [facility] Comment on above: Order Comment: Speci men Type: BLOOD SPECIMENOrdering Facility: [facility] Address: [address] [place], [place] [address] Performed By: #### 2 4323-8 ####[facility] [id number] [place] [id number] [place] Calcium [Mass/Vol] 9.6 mg/dL Normal 8.5-10.2 [facility] Comment on above: Order Comment: Speci men Type: BLOOD SPECIMENOrdering Facility: [facility] Address: [address] [place], [place] [address] Performed By: #### 2 4323-8 ####[facility] [id number] [place] [address] [place] Chloride [Moles/Vol] 103 mmol/L Normal 98-107 [facility] Comment on above: Order Comment: Speci men Type: BLOOD SPECIMENOrdering Facility: [facility] Address: [address] [place] [address] Performed By: #### 2 4323-8 ####[facility] [id number] [place] [address] [place] CO2 [Moles/Vol] 20 mmol/L Low 22-30 [facility] Comment on above: Order Comment: Speci men Type: BLOOD SPECIMENOrdering Facility: [facility] Address: [address] [place] [address] Performed By: #### 2 4323-8 ####[facility] [id number] [address] [place] Creatinine [Mass/Vol] 0.96 mg/dL Normal 0.58-0.96 [facility] Comment on above: Order Comment: Speci men Type: BLOOD SPECIMENOrdering Facility: [facility] Address: [address] [place] [address] Performed By: #### 2 4323-8 ####[facility] [id number] [address] [place] Creatinine and Glomerular filtration rate.predicted panel (S/P/Bld) 63 mL/min/1.73m??? Normal >=60 [facility] Comment on above: Order Comment: Speci men Type: BLOOD SPECIMENOrdering Facility: [facility] Address: [address] [place] [address] Result Comment: Sameera mated Glomerular Filtration Rate (eGFR) is calculated using the 2020 CKD-EPI creatinine equation. This equation utilizes serum creatinine, sex, and age as parameters. The creatinine assay has traceable calibration to isotope dilution-mass spectrometry. Refer to KDIGO guidelines for clinical interpretation. In patients with unstable renal function, e.g. those with acute kidney injury, the eGFR may not accurately reflect actual GFR. Performed By: #### 2 4323-8 ####[facility] [id number] [address] [address] [place] Glucose [Mass/Vol] 148 mg/dL High 74-99 [facility] Comment on above: Order Comment: Speci men Type: BLOOD SPECIMENOrdering Facility: [facility] Address: [address] [place] [address] Result Comment: The [place] Diabetes Association (ADA) provides guidance for cutoff values for fasting glucose and random glucose. The ADA defines fasting as no caloric intake for at least 8 hours. Fasting plasma glucose results between 100 to 125 mg/dL indicate increased risk for diabetes (prediabetes). Fasting plasma glucose results greater than or equal to 126 mg/dL meet the criteria for diagnosis of diabetes. In the absence of unequivocal hyperglycemia, results should be confirmed by repeat testing. In a patient with classic symptoms of hyperglycemia or hyperglycemic crisis, random plasma glucose results greater than or equal to 200 mg/dL meet the criteria for diagnosis of diabetes. Reference: Standards of Medical Care in Diabetes 2016, [place] Diabetes Association. Diabetes Care. 2016.39(Suppl 1). Performed By: #### 2 4323-8 ####[facility] [id number] [place] [address] [place] Potassium [Moles/Vol] 3.7 mmol/L Normal 3.7-5.1 [facility] Comment on above: Order Comment: Speci men Type: BLOOD SPECIMENOrdering Facility: [facility] Address: [address] [place] [address] Performed By: #### 2 4323-8 ####[facility] [id number] [place] [id number] [place] Protein [Mass/Vol] 7.4 g/dL Normal 6.3-8.0 [facility] Comment on above: Order Comment: Speci men Type: BLOOD SPECIMENOrdering Facility: [facility] Address: [address] [place], [place] [address] Performed By: #### 2 4323-8 ####[facility] [id number] [place] [address] [place] Sodium [Moles/Vol] 137 mmol/L Normal 136-144 [facility] Comment on above: Order Comment: Speci men Type: BLOOD SPECIMENOrdering Facility: [facility] Address: [address] [place] [address] Performed By: #### 2 4323-8 ####[facility] [id number] [place] [address] [place] Urea nitrogen [Mass/Vol] 14 mg/dL Normal 7-21 [facility] Comment on above: Order Comment: Speci men Type: BLOOD SPECIMENOrdering Facility: [facility] Address: [address] [place] [address] Performed By: #### 2 4323-8 ####[facility] [id number] [place] [address] [place] HbA1c (Bld)on 08-14-2024 Average glucose Estimated from glycated hemoglobin (Bld) [Mass/Vol] 111 mg/dL Normal [facility] Comment on above: Order Comment: Speci men Type: BLOOD SPECIMENOrdering Facility: [facility] Address: [address] [place] [address] Result Comment: eAG: (Estimated average glucose) is a calculated value from HgbA1c and is congressional representative of the average blood glucose level in the last 2-3 month period. Performed By: #### 5 5454-3 ####[facility] [id number] [place] [address] [place] HbA1c (Bld) [Mass fraction] 5.5 % Normal 4.3-5.6 [facility] Comment on above: Order Comment: Speci men Type: BLOOD SPECIMENOrdering Facility: [facility] Address: [address] [place] [address] Result Comment: [place] Diabetes Association guidelines indicate that patients with HgbA1c in the range 5.7-6.4% are at increased risk for development of diabetes, and intervention by lifestyle modification may be beneficial. HgbA1c greater or equal to 6.5% is considered diagnostic of diabetes. Performed By: #### 5 5454-3 ####[facility] [id number] [place] [address] [place] Urinalysis complete panel (U )on 08-14-2024 BACTERIA UL >9821 High Negative [facility] Comment on above: Order Comment: Speci men Type: URINE SPECIMENOrdering Facility: [facility] Address: [address] [place] [address] Performed By: #### 2 4356-8 ####[facility] [id number] [place] [address] [place] Bilirubin Ql (U) Negative Normal Negative [facility] Comment on above: Order Comment: Speci men Type: URINE SPECIMENOrdering Facility: [facility] Address: [address] [place] [address] Performed By: #### 2 4356-8 ####[facility] [id number] [place] [address] [place] Clarity (Unsp spec) Cloudy Abnormal Clear [facility] Comment on above: Order Comment: Speci men Type: URINE SPECIMENOrdering Facility: [facility] Address: [address] [place] [address] Performed By: #### 2 4356-8 ####[facility] [id number] [place] [address] [place] Color (U) Yellow Normal Yellow [facility] Comment on above: Order Comment: Speci men Type: URINE SPECIMENOrdering Facility: [facility] Address: [address] [place] [address] Performed By: #### 2 4356-8 ####[facility] [id number] [address] [id number] [address] [place] Epithelial cells LM.HPF (Urine sed) [#/Area] Moderate Normal [facility] Comment on above: Order Comment: Speci men Type: URINE SPECIMENOrdering Facility: [facility] Address: [address] [place] [address] Performed By: #### 2 4356-8 ####[facility] [id number] [place] [address] [place] Glucose Test strip (U) [Mass/Vol] Negative Normal Negative [facility] Comment on above: Order Comment: Speci men Type: URINE SPECIMENOrdering Facility: [facility] Address: [address] [place] [address] Performed By: #### 2 4356-8 ####[facility] [id number] [place] [address] [place] Hemoglobin Ql (U) Trace Abnormal Negative [facility] Comment on above: Order Comment: Speci men Type: URINE SPECIMENOrdering Facility: [facility] Address: [address] [place] [address] Performed By: #### 2 4356-8 ####[facility] [id number] [place] [address] [place] Hyaline casts (Urine sed) [#/Area] 1-3 /LPF Abnormal 0 /LPF [facility] Comment on above: Order Comment: Speci men Type: URINE SPECIMENOrdering Facility: [facility] Address: [address] [place] [address] Performed By: #### 2 4356-8 ####[facility] [id number] [place] [address] [place] Ketones Ql (U) Negative Normal Negative [facility] Comment on above: Order Comment: Speci men Type: URINE SPECIMENOrdering Facility: [facility] Address: [address] [place] [address] Performed By: #### 2 4356-8 ####[facility] [id number] [place] [address] [place] Leukocyte esterase Test strip Ql (U) 1+ Abnormal Negative [facility] Comment on above: Order Comment: Speci men Type: URINE SPECIMENOrdering Facility: [facility] Address: [address] [place] [address] Performed By: #### 2 4356-8 ####[facility] [id number] [place] [address] [place] Nitrite Ql (U) Negative Normal Negative [facility] Comment on above: Order Comment: Speci men Type: URINE SPECIMENOrdering Facility: [facility] Address: [address] [place] [address] Performed By: #### 2 4356-8 ####[facility] [id number] [place] [address] [place] pH (U) 6.0 [pH] Normal <8.5 [facility] Comment on above: Order Comment: Speci men Type: URINE SPECIMENOrdering Facility: [facility] Address: [address] [place] [address] Performed By: #### 2 4356-8 ####[facility] [id number] [place] [address] [place] Protein (U) [Mass/Vol] 1+ Abnormal Negative [facility] Comment on above: Order Comment: Speci men Type: URINE SPECIMENOrdering Facility: [facility] Address: [address] [place] [address] Performed By: #### 2 4356-8 ####[facility] [id number] [place] [address] [place] RBC LM.HPF (Urine sed) [#/Area] /[HPF] Abnormal 0-2 /HPF [facility] Comment on above: Order Comment: Speci men Type: URINE SPECIMENOrdering Facility: [facility] Address: [address] [place] [address] Performed By: #### 2 4356-8 ####[facility] [id number] [place] [address] [place] Specific gravity (U) [Rel density] 1.021 Normal 1.005-1.030 [facility] Comment on above: Order Comment: Speci men Type: URINE SPECIMENOrdering Facility: [facility] Address: [address] [place] [address] Performed By: #### 2 4356-8 ####[facility] [id number] [place] [address] [place] Urobilinogen Ql (U) 1.0 EU/dL Normal 0.2-1.0 EU/dL [facility] Comment on above: Order Comment: Speci men Type: URINE SPECIMENOrdering Facility: [facility] Address: [address] [place] [address] Performed By: #### 2 4356-8 ####[facility] [id number] [place] [address] [place] WBC LM.HPF (Urine sed) [#/Area] 6-10 /HPF Abnormal 0-5 /HPF [facility] Comment on above: Order Comment: Speci men Type: URINE SPECIMENOrdering Facility: [facility] Address: [address] [place] [address] Performed By: #### 2 4356-8 ####[facility] [id number] [place] [address] [place] CNOVon 06-24-2024 CNOV Office Visit (FAMPWS ) JESSICA LAZCANO ([id number]) 1950 F Date Time Provider Department 06/24/24 10:00 AM CECI VERA During your visit today, we recorded the following information about you: Pulse Respiration Blood pressure Weight 91/minute 16/minute 118/66 73.9 kg Ceci Vera MD 06/24/2024 1:23 PM Signed Chief Complaint Patient presents with: Follow Up: 3 month HPI Jessica Lazcano is a 73 year old female who presents here today for Above Complaints. Patient with PATITO on CMP about 3 months ago and patient is overdue for repeat labs, UA and renal US. Patient has been adhering to low sodium diet and avoiding NSAIDs. BP well controlled on current regimen. History of CVA 02/2023 without recurrent symptoms. Compliant with ASA, statin, and HTN control. Patient completed PT in August for right sided weakness and she states that the weakness has improved significantly and continues to improve. Able to complete ADLs and is quilting still, but not as fast as she used to. Patient evaluated for chronic right shoulder pain at [facility] in March with xray showing degenerative changes. Referred to PT, but could not afford it. Working on some home exercises and pain and ROM is improving. Patient has not completed HSAT for EVA concerns. States she thinks testing is covered, but a CPAP she may have to cover half of it. Notes she gets intermittent swelling in her right leg since her stroke. Does not have compression stockings. Due for colon cancer screening. Refusing vaccinations. Past medical history, appointments, medications, allergies reviewed. Previous Medical History PAST MEDICAL HISTORY No date: Adjustment disorder with depressed mood No date: Anxiety 05/30/2023: Carotid stenosis, bilateral Comment: 40-59% 02/2023: CVA (cerebral vascular accident) (HCC) No date: History of endometriosis 10/15/2014: History of melanoma No date: HLD (hyperlipidemia) No date: HTN (hypertension) 06/12/2023: Osteoporosis No date: Other and unspecified hyperlipidemia No date: Overweight (BMI 25.0-29.9) No date: Right sided weakness Previous Surgical History PAST SURGICAL HISTORY 1997: APPENDECTOMY No date: SECTION HX No date: PAST SURGICAL HISTORY OF Comment: exlporatory laparotomy No date: STRESS ECHO Family History FAMILY HISTORY Problem Relation Age of Onset Cancer Father lung cancer Diabetes Mother Cancer Mother lung cancer Heart Brother Heart Brother Cancer Sister cervical Heart Sister Diabetes Maternal Grandfather Heart Attack Maternal Grandfather Heart disease Maternal Grandmother Cancer Paternal Grandfather stomach Patient Allergies ALLERGIES Allergen Reactions Lipitor [Atorvastat* Hives Current Medications Current Outpatient Medications on File Prior to Visit Medication Sig alendronate (FOSAMAX) 70 mg tablet Take 1 tablet by mouth one time a week. Take with a full glass of water, on an empty stomach; do NOT lie down for 30minutes. amLODIPine (NORVASC) 10 mg tablet Take 1 tablet by mouth once daily. lisinopril (ZESTRIL) 5 mg tablet Take 1 tablet by mouth once daily. metoprolol succinate ER (TOPROL XL) 50 mg 24 hr tablet Take 1 tablet by mouth once daily. rosuvastatin (CRESTOR) 20 mg tablet Take 1 tablet by mouth daily at bedtime. busPIRone (BUSPAR) 5 mg tablet Take 1 tablet by mouth two times a day. traZODone (DESYREL) 50 mg tablet Take 1 tablet by mouth daily at bedtime. diphenhydrAMINE (BENADRYL) 25 mg capsule Take 25 mg by mouth every 6 hours as needed. aspirin, enteric coated (ASPIRIN, ENTERIC COATED) 81 mg EC tablet Take 1 tablet by mouth once daily. No current facility-administered medications on file prior to visit. Social History Social History Tobacco Use Smoking status: Never Smokeless tobacco: Never Substance Use Topics Alcohol use: Not Currently Comment: less than monthly Drug use: No Review of Symptoms REVIEW OF SYSTEMS GENERAL: No weight loss, malaise or fevers RESPIRATORY: Negative for cough, hemoptysis, wheezing, COPD, dyspnea or shortness of breath CARDIOVASCULAR: Negative for chest pain, leg swelling, hypertension, CHF or palpitations GI: No nausea, vomiting, or diarrhea SKIN: Negative for lesions, rash, and itching EXAM: BP 118/66 Pulse 91 Resp 16 Wt 73.9 kg (162 lb 14.7 oz) SpO2 98% BMI 30.28 kg/m? General Appearance: Well appearing, alert, in no acute distress, well-hydrated, well nourished.. Skin: Skin color, texture, turgor normal, no suspicious rashes or lesions. Lungs: Lungs clear to auscultation. No wheezing, rhonchi, rales.. Heart: RRR without murmur, gallop, or rubs. No ectopy. Abdomen: Normal abdominal exam, Abdomen soft, non-tender. Bowel sounds normal. No masses, organomegaly. Extremities: No deformities, edema, skin discoloration, clubbing (more content not included)... [facility]FAMPWS[facility] JESSICA LAZCANO ([id number]) 1950 F Date Time Provider Department 04/25/24 CECI VERA [facility] During your visit today, we recorded the following information about you: Ceci Vera MD 04/25/2024 8:32 AM Signed Repeat labs still show acute kidney injury which is only mildly improved. Recommend checking UA and kidney US for further workup. Recommend low sodium diet <2,000 mg per day, avoidance of NSAIDs, and increased water intake. Sugar still high in the 140's. Please see if lab can add on A1c. Francis Kirby MA 04/25/2024 9:07 AM Signed Please contact patient to schedule US. Pt notified and verbalized understanding of results. A1C not able to be added to CMP - she has been made aware of additional need for lab draw and UA. Allergies As of Date: 04/25/2024 Noted Allergy Reaction LIPITOR (ATORVASTATIN) 03/13/2023 4 - Hives Date Reviewed: 03/22/2024 Reviewed by: Demetria Arboleda LPN - Fully Assessed Reason for Visit: Results [95] Primary Visit Diagnosis:PATITO (acute kidney injury) (HCC) [N17.9] Other Visit Diagnosis:Hyperglycem ia [R73.9] Order(s):HEMOGLOBIN A1C [MTBQE5M] Order #: [id number] FUTURE URINALYSIS, WITH MICROSCOPIC [SQUAWMIC] Order #: [id number] FUTURE KIDNEY/BLADDER [[id number]] Order #: [id number] FUTURE ALBUMIN/CREATININE RATIO, URINE [SQUACR] Order #: [id number] FUTURE Prescriptions as of 05/16/2024 - amLODIPine (NORVASC) 10 mg tablet Take 1 tablet by mouth once daily. - lisinopril (ZESTRIL) 5 mg tablet Take 1 tablet by mouth once daily. - metoprolol succinate ER (TOPROL XL) 50 mg 24 hr tablet Take 1 tablet by mouth once daily. - rosuvastatin (CRESTOR) 20 mg tablet Take 1 tablet by mouth daily at bedtime. - busPIRone (BUSPAR) 5 mg tablet Take 1 tablet by mouth two times a day. - traZODone (DESYREL) 50 mg tablet Take 1 tablet by mouth daily at bedtime. - alendronate (FOSAMAX) 70 mg tablet Take 1 tablet by mouth one time a week. Take with a full glass of water, on an empty stomach; do NOT lie down for 30minutes. - diphenhydrAMINE (BENADRYL) 25 mg capsule Take 25 mg by mouth every 6 hours as needed. - aspirin, enteric coated (ASPIRIN, ENTERIC COATED) 81 mg EC tablet Take 1 tablet by mouth once daily. Meds Comments as of 12/23/2017: Only taking Tessalon perle And Mucinex (last dose this morning) 2-3 S. Joe Problem List As Of Date 04/25/2024 Noted Resolved ADJUSTMENT DISORDER WITH DEPRESSED MOOD [F43.21] HYPERLIPIDEMIA NEC/NOS [E78.5] Other and unspecified angina pectoris [I20.9] 08/01/2007 03/14/2023 TM JOINT DISORDER, UNSPEC [M26.609] 06/12/2008 ROTATOR CUFF SYND NOS [M71.9, M67.919] 06/27/2009 Major Depressive Disorder [F32.9] 03/31/2010 Essential Hypertension, Benign [I10] 06/07/2010 Obesity [E66.9] 12/11/2012 History of melanoma [Z85.820] 10/15/2014 Right sided weakness [R53.1] 03/14/2023 Cerebrovascular accident (CVA) (HCC) [I63.9] 04/07/2023 Anxiety [F41.9] 05/15/2023 Overweight (BMI 25.0-29.9) [E66.3] 05/15/2023 Encounter Status:Closed by CECI VERA on 05/16/24 Normal [facility] metabolic 2000 panelon 04-24-2024 Albumin [Mass/Vol] 4.7 g/dL Normal 3.9-4.9 [facility] Comment on above: Order Comment: Speci men Type: BLOOD SPECIMENOrdering Facility: [facility] Address: [address] [place] [address] Performed By: #### 2 4323-8 ####[facility] [id number] [place] [address] [place] ALP [Catalytic activity/Vol] 45 U/L Normal 34-123 [facility] Comment on above: Order Comment: Speci men Type: BLOOD SPECIMENOrdering Facility: [facility] Address: [address] [place] [address] Performed By: #### 2 4323-8 ####[facility] [id number] [place] [address] [place] ALT [Catalytic activity/Vol] 10 U/L Normal 7-38 [facility] Comment on above: Order Comment: Speci men Type: BLOOD SPECIMENOrdering Facility: [facility] Address: [address] [place] [address] Performed By: #### 2 4323-8 ####[facility] [id number] [place] [address] [place] Anion gap [Moles/Vol] 14 mmol/L Normal 8-15 [facility] Comment on above: Order Comment: Speci men Type: BLOOD SPECIMENOrdering Facility: [facility] Address: [address] [place] [address] Performed By: #### 2 4323-8 ####[facility] [id number] [place] [address] [place] AST [Catalytic activity/Vol] 17 U/L Normal 13-35 [facility] Comment on above: Order Comment: Speci men Type: BLOOD SPECIMENOrdering Facility: [facility] Address: [address] [place] [address] Performed By: #### 2 4323-8 ####[facility] [id number] [place] [address] [place] Bilirubin [Mass/Vol] 0.4 mg/dL Normal 0.2-1.3 [facility] Comment on above: Order Comment: Speci men Type: BLOOD SPECIMENOrdering Facility: [facility] Address: [address] [place] [address] Performed By: #### 2 4323-8 ####[facility] [id number] [place] [address] [place] Calcium [Mass/Vol] 10.1 mg/dL Normal 8.5-10.2 [facility] Comment on above: Order Comment: Speci men Type: BLOOD SPECIMENOrdering Facility: [facility] Address: [address] [place] [address] Performed By: #### 2 4323-8 ####[facility] [id number] [place] [address] [place] Chloride [Moles/Vol] 102 mmol/L Normal 98-107 [facility] Comment on above: Order Comment: Speci men Type: BLOOD SPECIMENOrdering Facility: [facility] Address: [address] [place] [address] Performed By: #### 2 4323-8 ####[facility] [id number] [place] [address] [place] CO2 [Moles/Vol] 22 mmol/L Normal 22-30 [facility] Comment on above: Order Comment: Speci men Type: BLOOD SPECIMENOrdering Facility: [facility] Address: [address] [place] [address] Performed By: #### 2 4323-8 ####[facility] [id number] [place] [address] [place] Creatinine [Mass/Vol] 1.13 mg/dL High 0.58-0.96 [facility] Comment on above: Order Comment: Speci men Type: BLOOD SPECIMENOrdering Facility: [facility] Address: [address] [place] [address] Performed By: #### 2 4323-8 ####[facility] [id number] [place] [address] [place] Creatinine and Glomerular filtration rate.predicted panel (S/P/Bld) 52 mL/min/1.73m??? Low >=60 [facility] Comment on above: Order Comment: Stacey men Type: BLOOD SPECIMENOrdering Facility: [facility] Address: [address] [place] [address] Result Comment: Sameera mated Glomerular Filtration Rate (eGFR) is calculated using the 2020 CKD-EPI creatinine equation. This equation utilizes serum creatinine, sex, and age as parameters. The creatinine assay has traceable calibration to isotope dilution-mass spectrometry. Refer to KDIGO guidelines for clinical interpretation. In patients with unstable renal function, e.g. those with acute kidney injury, the eGFR may not accurately reflect actual GFR. Performed By: #### 2 4323-8 ####[facility] [id number] [place] [id number] [place] Glucose [Mass/Vol] 143 mg/dL High 74-99 [facility] Comment on above: Order Comment: Guillermoi men Type: BLOOD SPECIMENOrdering Facility: [facility] Address: [address] [place] [address] Result Comment: The [place] Diabetes Association (ADA) provides guidance for cutoff values for fasting glucose and random glucose. The ADA defines fasting as no caloric intake for at least 8 hours. Fasting plasma glucose results between 100 to 125 mg/dL indicate increased risk for diabetes (prediabetes). Fasting plasma glucose results greater than or equal to 126 mg/dL meet the criteria for diagnosis of diabetes. In the absence of unequivocal hyperglycemia, results should be confirmed by repeat testing. In a patient with classic symptoms of hyperglycemia or hyperglycemic crisis, random plasma glucose results greater than or equal to 200 mg/dL meet the criteria for diagnosis of diabetes. Reference: Standards of Medical Care in Diabetes 2016, [place] [employer] Association. Diabetes Care. 2016.39(Suppl 1). Performed By: #### 2 4323-8 ####[facility] [id number] [place] [address] [place] Potassium [Moles/Vol] 4.7 mmol/L Normal 3.7-5.1 [facility] Comment on above: Order Comment: Speci men Type: BLOOD SPECIMENOrdering Facility: [facility] Address: [address] [place] [address] Performed By: #### 2 4323-8 ####[facility] [id number] [place] [address] [place] Protein [Mass/Vol] 7.3 g/dL Normal 6.3-8.0 [facility] Comment on above: Order Comment: Speci men Type: BLOOD SPECIMENOrdering Facility: [facility] Address: [address] [place] [address] Performed By: #### 2 4323-8 ####[facility] [id number] [place] [address] [place] Sodium [Moles/Vol] 138 mmol/L Normal 136-144 [facility] Comment on above: Order Comment: Speci men Type: BLOOD SPECIMENOrdering Facility: [facility] Address: [address] [place] [address] Performed By: #### 2 4323-8 ####[facility] [id number] [place] [id number] [place] Urea nitrogen [Mass/Vol] 14 mg/dL Normal 7-21 [facility] Comment on above: Order Comment: Speci men Type: BLOOD SPECIMENOrdering Facility: [facility] Address: [address] [place] [address] Performed By: #### 2 4323-8 ####[facility] [id number] [place] [address] [place] XR Shoulder - right 3 Viewso n 03-25-2024 IMPRESSION: 1. Mild osteoarthrosis of the right shoulder Director Group Sales: [employer] Transcribe Date/Time: Mar 25 2024 5:36P Dictated by : SAMUEL HUTCHISON MD This examination was interpreted and the report reviewed and electronically signed by: SAMUEL HUTCHISON MD on Mar 25 2024 5:36PM [facility] DIVISION OF RADIOLOGY * * *Final Report* * * DATE OF EXAM: Mar 22 2024 12:30PM [id number] - XR SHLDR >/=3V AP/BRYAN AP/OTHR RT / PROCEDURE REASON: multiple diagnoses * * * * Physician Interpretation * * * * SHOULDER RADIOGRAPHS - RIGHT HISTORY: Chronic right shoulder pain Limited range of motion (ROM) of shoulder TECHNOLOGIST PROVIDED HISTORY (if applicable): had a stroke a year ago and shoulder was ok, pain off and on for the last year not able to raise arm much and pain in upper arm no inj TECHNIQUE: XR SHLDR >/=3V AP/BRYAN AP/OTHR RT COMPARISON: None available RESULT: Right shoulder: The glenohumeral joint appears normally aligned with preserved joint space and small marginal osteophytes. The acromioclavicular joint demonstrates mild hypertrophic osteoarthrosis with subacromial spur Soft tissues appear within normal limits. DIVISION OF RADIOLOGY Provider, [facility] - 03/25/2024 * * *Final Report* * * DATE OF EXAM: Mar 22 2024 12:30PM [id number] - XR SHLDR >/=3V AP/BRYAN AP/OTHR RT / PROCEDURE REASON: multiple diagnoses * * * * Physician Interpretation * * * * SHOULDER RADIOGRAPHS - RIGHT HISTORY: Chronic right shoulder pain Limited range of motion (ROM) of shoulder TECHNOLOGIST PROVIDED HISTORY (if applicable): had a stroke a year ago and shoulder was ok, pain off and on for the last year not able to raise arm much and pain in upper arm no inj TECHNIQUE: XR SHLDR >/=3V AP/BRYAN AP/OTHR RT COMPARISON: None available RESULT: Right shoulder: The glenohumeral joint appears normally aligned with preserved joint space and small marginal osteophytes. The acromioclavicular joint demonstrates mild hypertrophic osteoarthrosis with subacromial spur Soft tissues appear within normal limits. IMPRESSION IMPRESSION: 1. Mild osteoarthrosis of the right shoulder [facility] Transcribe Date/Time: Mar 25 2024 5:36P Dictated by : SAMUEL HUTCHISON MD This examination was interpreted and the report reviewed and electronically signed by: SAMUEL HUTCHISON MD on Mar 25 2024 5:36PM EST [facility] XR Shoulder - right 3 ViewsO rdered By: [facility] Provider on 03-25-2024 [facility] CBC W Auto Differential pane l (Bld)on 03-22-2024 Basophils (Bld) [#/Vol] [facility] Basophils/100 WBC (Bld) 0.1 % [facility] Differential cell count method Nom (Bld) Auto [facility] Eosinophils (Bld) [#/Vol] [facility] Eosinophils/100 WBC (Bld) 0.0 % [facility] Erythrocyte distribution width (RBC) [Ratio] 12.4 % 11.5 - 15.0 % [facility] Hematocrit (Bld) [Volume fraction] 38.6 % 36.0 - 46.0 % [facility] Hemoglobin (Bld) [Mass/Vol] 12.5 g/dL 11.5 - 15.5 g/dL [facility] Immature granulocytes (Bld) [#/Vol] 0.03 10*3/uL [facility] Immature granulocytes/100 WBC (Bld) 0.3 % [facility] Interpretation and review of laboratory results Abnormal [facility] Lymphocytes (Bld) [#/Vol] 1.70 10*3/uL [facility] Lymphocytes/100 WBC (Bld) 15.5 % [facility] MCH (RBC) [Entitic mass] 29.1 pg 26.0 - 34.0 pg [facility] MCHC (RBC) [Mass/Vol] 32.4 g/dL 30.5 - 36.0 g/dL [facility] MCV (RBC) [Entitic vol] 89.8 fL 80.0 - 100.0 fL [facility] Monocytes (Bld) [#/Vol] 1.02 10*3/uL High [facility] Monocytes/100 WBC (Bld) 9.3 % C [facility] Neutrophils (Bld) [#/Vol] 8.23 10*3/uL High [facility] Neutrophils/100 WBC (Bld) 74.8 % [facility] Nucleated RBC (Bld) [#/Vol] NINF [facility] Nucleated RBC/100 WBC (Bld) [Ratio] 0.0 % /100 WBC [facility] Platelet mean volume (Bld) [Entitic vol] 11.3 fL 9.0 - 12.7 fL [facility] Platelets (Bld) [#/Vol] 352 10*3/uL [facility] RBC (Bld) [#/Vol] 4.30 10*6/uL 3.90 - 5.2 0 m/uL [facility] WBC (Bld) [#/Vol] 10.99 10*3/uL [facility] Comprehensive metabolic 2000 panelon 03-22-2024 Albumin [Mass/Vol] 4.7 g/dL 3.9 - 4.9 g/dL [facility] ALP [Catalytic activity/Vol] 44 U/L 34 - 123 U/L [facility] ALT [Catalytic activity/Vol] 15 U/L 7 - 38 U/L [facility] Anion gap [Moles/Vol] 13 mmol/L 9 - 18 mmol/L [facility] AST [Catalytic activity/Vol] 18 U/L 13 - 35 U/L [facility] Bilirubin [Mass/Vol] 0.4 mg/dL 0.2 - 1 .3 mg/dL [facility] Calcium [Mass/Vol] 10.3 mg/dL High 8.5 - 10. 2 mg/dL [facility] Chloride [Moles/Vol] 102 mmol/L 97 - 10 5 mmol/L [facility] CO2 [Moles/Vol] 23 mmol/L 22 - 30 mmol/L [facility] Creatinine [Mass/Vol] 1.19 mg/dL High 0.58 - 0.96 mg/dL [facility] GFR/1.73 sq M.predicted among non-blacks MDRD (S/P/Bld) [Vol rate/Area] 49 mL/min/{1.73_m2} Low - PINF [facility] Comment on above: Estimated Glomerular Filtration Rate (eGFR) is calculated using the 2020 CKD-EPI creatinine equation. This equation utilizes serum creatinine, sex, and age as parameters. The creatinine assay has traceable calibration to isotope dilution-mass spectrometry. Refer to KDIGO guidelines for clinical interpretation. In patients with unstable renal function, e.g. those with acute kidney injury, the eGFR may not accurately reflect actual GFR. Glucose [Mass/Vol] 139 mg/dL High 74 - 99 mg/dL [facility] Comment on above: The [place] Diabete s Association (ADA) provides guidance for cutoff values for fasting glucose and random glucose. The ADA defines fasting as no caloric intake for at least 8 hours. Fasting plasma glucose results between 100 to 125 mg/dL indicate increased risk for diabetes (prediabetes). Fasting plasma glucose results greater than or equal to 126 mg/dL meet the criteria for diagnosis of diabetes. In the absence of unequivocal hyperglycemia, results should be confirmed by repeat testing. In a patient with classic symptoms of hyperglycemia or hyperglycemic crisis, random plasma glucose results greater than or equal to 200 mg/dL meet the criteria for diagnosis of diabetes. Reference: Standards of Medical Care in Diabetes 2016, [place] [employer]. Diabetes Care. 2016.39(Suppl 1). Interpretation and review of laboratory results Abnormal [facility] Potassium [Moles/Vol] 4.7 mmol/L 3.7 - 5.1 mmol/L [facility] Protein [Mass/Vol] 7.4 g/dL 6.3 - 8.0 g/dL [facility] Sodium [Moles/Vol] 138 mmol/L 136 - 144 mmol/L [facility] Urea nitrogen [Mass/Vol] 19 mg/dL 7 - 21 mg/dL [facility] LIPID PANEL, NONFASTINGon Cholesterol [Mass/Vol] 145 mg/dL NINF - 200 mg/dL [facility] Comment on above: <200 mg/dL, Desirabl e 200-239 mg/dL, Borderline high >239 mg/dL, High HDL Cholesterol, Nonfasting 59 mg/dL 39 - PINF mg/dL [facility] Comment on above: 40-59 mg/dL, Accepta ble >59 mg/dL, High: Negative risk factor for coronary heart disease <40 mg/dL, Low: Positive risk factor for coronary heart disease Interpretation and review of laboratory results Normal [facility] LDL Cholesterol, Nonfasting 68 mg/dL NINF - 100 mg/dL [facility] Comment on above: <100 mg/dL, Optimal 100-129 mg/dL, Near optimal/above optimal 130-159 mg/dL, Borderline high 160-189 mg/dL, High >189 mg/dL, Very high Secondary prevention optimal LDL Cholesterol levels are recommended to be < 70 mg/dL LDL/HDL Ratio, Nonfasting 1.15 mg/dL NINF - 2.54 mg/dL [facility] Comment on above: Reference: 1. National Cholesterol Education Program ATP III Guideline At-A-Glance Quick Desk Reference: National Heart, Lung, and Blood [place]. National Institutes of Health. 2001: NIH Publication No. 01-3305. 2. An International Atherosclerosis Society position paper: global recommendations for the management of dyslipidemia: executive summary, Atherosclerosis. 2014: 232(2):410-413. Non HDL Cholesterol, Nonfasting 86 mg/dL NINF - 130 mg/dL [facility] Comment on above: <130 mg/dL, Optimal 130-159 mg/dL, Near optimal/above optimal 160-189 mg/dL, Borderline high 190-219 mg/dL, High >219 mg/dL, Very high Secondary prevention optimal non HDL Cholesterol levels are recommended to be <100 mg/dL Total Chol/HDL Ratio, Nonfasting 2.46 mg/dL NINF - 5.10 mg/dL [facility] Triglycerides, Nonfasting 89 mg/dL NINF - 150 mg/dL [facility] Comment on above: <150 mg/dL, Normal 150-199 mg/dL, Borderline high 200-499 mg/dL, High >499 mg/dL, Very high VLDL Cholesterol, Nonfasting 18 mg/dL NINF - 30 mg/dL [facility] No Panel Informationon 03-22 [facility] XR Shoulder - right 3 Viewso n 03-22-2024 Radiology Study observation (narrative) [facility] DXA-AXIAL SKELETONon 023 LOWEST T-SCORE -2.7 [facility] LYNETTE SCREENINGon 05-18-2023 [facility] CNTHERAPYon 05-05-2023 CNTHERAPY OT/PT/Speech Visit (LTOT) JESSICA LAZCANO ([id number]) 1950 F Date Time Provider Department 05/05/23 10:45 AM JENNYFER NAVA LTOT Date Time Provider Department Center 05/05/2023 10:45 AM [id number] , KRI*LTOT [facility] Reason for Visit: OT Progress Note [1595] OT Discharge [750] Primary Visit Diagnosis:Cerebrovasc ular accident (CVA), unspecified mechanism (HCC) [I63.9] Other Visit Diagnosis:Right sided weakness [R53.1] Allergies As of Date: 05/05/2023 Noted Allergy Reaction LIPITOR (ATORVASTATIN) 03/13/2023 4 - Hives Date Reviewed: 12/23/2017 Reviewed by: Nerissa Diaz (Rn) - Fully Assessed Prescriptions as of 11/08/2023 - amLODIPine (NORVASC) 10 mg tablet Take 1 tablet by mouth once daily. - lisinopril (ZESTRIL) 5 mg tablet Take 1 tablet by mouth once daily. - metoprolol succinate ER (TOPROL XL) 50 mg 24 hr tablet Take 1 tablet by mouth once daily. - rosuvastatin (CRESTOR) 20 mg tablet Take 1 tablet by mouth daily at bedtime. - busPIRone (BUSPAR) 5 mg tablet Take 1 tablet by mouth two times a day. - traZODone (DESYREL) 50 mg tablet Take 1 tablet by mouth daily at bedtime. - alendronate (FOSAMAX) 70 mg tablet Take 1 tablet by mouth one time a week. Take with a full glass of water, on an empty stomach; do NOT lie down for 30minutes. - diphenhydrAMINE (BENADRYL) 25 mg capsule Take 25 mg by mouth every 6 hours as needed. - aspirin, enteric coated (ASPIRIN, ENTERIC COATED) 81 mg EC tablet Take 1 tablet by mouth once daily. Meds Comments as of 12/23/2017: Only taking Tessalon perle And Mucinex (last dose this morning) 2-3 S. Joe Normal [facility] CNTHERAPYon 04-07-2023 CNTHERAPY OT/PT/Speech Visit (LDPT) JESSICA LAZCANO ([id number]) 1950 F Date Time Provider Department 04/07/23 10:00 AM PAOLA JAMES LDTHERESE Date Time Provider Department Center 04/07/2023 10:00 AM [id number], ELLEN LDPT [facility] Reason for Visit: PT Eval [747] Primary Visit Diagnosis:Right sided weakness [R53.1] Other Visit Diagnosis:Cerebrovasc ular accident (CVA), unspecified mechanism (HCC) [I63.9] Allergies As of Date: 04/07/2023 Noted Allergy Reaction LIPITOR (ATORVASTATIN) 03/13/2023 4 - Hives Date Reviewed: 12/23/2017 Reviewed by: Nerissa (Nick) Joe - Fully Assessed Prescriptions as of 04/07/2023 - clopidogrel (PLAVIX) 75 mg tablet Take 75 mg by mouth once daily. - diphenhydrAMINE (BENADRYL) 25 mg capsule Take 25 mg by mouth every 6 hours as needed. - busPIRone (BUSPAR) 5 mg tablet Take 1 tablet by mouth twice daily. - pravastatin (PRAVACHOL) 40 mg tablet Take 1 tablet by mouth once daily. - lisinopril (ZESTRIL) 5 mg tablet Take 1 tablet by mouth once daily. - metoprolol succinate ER (TOPROL XL) 50 mg 24 hr tablet Take 1 tablet by mouth once daily. - famotidine (PEPCID) 20 mg tablet Take 1 tablet by mouth twice daily. - aspirin, enteric coated (ASPIRIN, ENTERIC COATED) 81 mg EC tablet Take 1 tablet by mouth once daily. - amLODIPine (NORVASC) 10 mg tablet Take 1 tablet by mouth once daily. - albuterol (PROVENTIL) 5 mg/mL nebu Inhale 0.5 mL as instructed one time only for 1 dose. 1 DOSE NOW - BACK OFFICE. PLACE 0.5 ML PER DROPPER AND 2.5 ML OF NORMAL SALINE INTO RESERVOIR. - benzonatate (TESSALON PERLE) 100 mg capsule Take 1 capsule by mouth three times daily as needed. Meds Comments as of 12/23/2017: Only taking Tessalon perle And Mucinex (last dose this morning) 2-3 S. Joe Normal [facility] CNTHERAPY OT/PT/Speech Visit (LTOT) JESSICA LAZCANO ([id number]) 1950 F Date Time Provider Department 04/07/23 9:15 AM JENNYFER NAVA LTOT Date Time Provider Department Center 04/07/2023 9:15 AM [id number] , KRI*LTOT [facility] Reason for Visit: OT EVAL [748] Visit Diagnoses:Cerebrovasc ular accident (CVA), unspecified mechanism (HCC) [I63.9] Right sided weakness [R53.1] Allergies As of Date: 04/07/2023 Noted Allergy Reaction LIPITOR (ATORVASTATIN) 03/13/2023 4 - Hives Date Reviewed: 12/23/2017 Reviewed by: Nerissa Michel) Joe - Fully Assessed Prescriptions as of 04/07/2023 - clopidogrel (PLAVIX) 75 mg tablet Take 75 mg by mouth once daily. - diphenhydrAMINE (BENADRYL) 25 mg capsule Take 25 mg by mouth every 6 hours as needed. - busPIRone (BUSPAR) 5 mg tablet Take 1 tablet by mouth twice daily. - pravastatin (PRAVACHOL) 40 mg tablet Take 1 tablet by mouth once daily. - lisinopril (ZESTRIL) 5 mg tablet Take 1 tablet by mouth once daily. - metoprolol succinate ER (TOPROL XL) 50 mg 24 hr tablet Take 1 tablet by mouth once daily. - famotidine (PEPCID) 20 mg tablet Take 1 tablet by mouth twice daily. - aspirin, enteric coated (ASPIRIN, ENTERIC COATED) 81 mg EC tablet Take 1 tablet by mouth once daily. - amLODIPine (NORVASC) 10 mg tablet Take 1 tablet by mouth once daily. - albuterol (PROVENTIL) 5 mg/mL nebu Inhale 0.5 mL as instructed one time only for 1 dose. 1 DOSE NOW - BACK OFFICE. PLACE 0.5 ML PER DROPPER AND 2.5 ML OF NORMAL SALINE INTO RESERVOIR. - benzonatate (TESSALON PERLE) 100 mg capsule Take 1 capsule by mouth three times daily as needed. Meds Comments as of 12/23/2017: Only taking Tessalon perle And Mucinex (last dose this morning) 2-3 Kyle Diaz Letter Text Normal [facility] Absolute lymphocyte countOrd ered By: Dr. Almodovar on 02-22-2023 Lymphocytes Auto (Unsp spec) [#/Vol] 1.74 10*3/uL 0.83-4.51 [facility] Basophil percentageOrdered B y: Dr. Almodovar on 02-22-2023 Basophil percentage 3.5 mg/dL 2.5-4.9 [facility] Basophils/100 WBC (Bld) 0.1 % 0-1 [facility] Chloride [Moles/Vol] 108 mmol/L 98-107 [facility] Cholesterol [Mass/Vol] 216 mg/dL <200 [facility] Comment on above: <200 mg/dL Desirable 200-240 mg/dL Borderline >240 mg/dL High Risk Eosinophils/100 WBC (Bld) 0.2 % 0-5 [facility] Glucose [Mass/Vol] 118 mg/dL 74-106 [facility] Comment on above: Fasting Glucose resu lt from 100 to 125 mg/dL suggests IMPAIRED HOMEOSTASIS per A.D.A. criteria. Neutrophils (Bld) [#/Vol] 7.8 10*3/uL 2.0-7.7 [facility] Neutrophils/100 WBC (Bld) 75.5 % 47-70 [facility] Potassium [Moles/Vol] 4.0 mmol/L 3.5-5.1 [facility] Sodium [Moles/Vol] 138 mmol/L 136-145 [facility] Triglyceride [Mass/Vol] 109 mg/dL <199 [facility] Comment on above: The drugs N-Acetylcy steine and Metamizole may falsely depress this assay.Serum Triglycerides Reference Interval Normal <150 mg/dL Borderline high 150 - 199 mg/dL High 200 - 499 mg/dL Very High > or = 500 mg/dL WBC (Bld) [#/Vol] 10.3 10*3/uL 4.4-11.0 [facility] Blood erythrocytes count (nu mber/volume)Ordered By: Dr. Almodovar on 02-22-2023 RBC (Bld) [#/Vol] 4.54 10*6/uL 4.2-5.4 [facility] Blood hemoglobin measurement (mass/volume)Ordered By: Dr. Almodovar on 02-22-2023 Hemoglobin (Bld) [Mass/Vol] 13.0 g/dL 12.0-15.0 [facility] Blood lymphocytes/100 leukoc ytesOrdered By: Dr. Almodovar on 02-22-2023 Lymphocytes/100 WBC (Bld) 16.9 % 19-41 [facility] Blood monocytes/100 leukocyt esOrdered By: Dr. Almodovar on 02-22-2023 Monocytes/100 WBC (Bld) 6.9 % 0-10 [facility] Blood platelet mean volumeOr dered By: Dr. Almodovar on 02-22-2023 Platelet mean volume (Bld) [Entitic vol] 11.2 fL 6.2-12.0 [facility] Determination of erythrocyte mean corpuscular volume (MCV)Ordered By: Dr. Almodovar on 02-22-2023 MCV (RBC) [Entitic vol] 86.8 fL 81-99 [facility] Hematocrit Auto (Bld) [Volum e fraction]Ordered By: Dr. Almodovar on 02-22-2023 Hematocrit (Bld) [Volume fraction] 39.4 % 37-47 [facility] Laboratory - Chemistry and C hemistry - challengeOrdered By: Dr. Almodovar on 02-22-2023 CO2 [Moles/Vol] 23.0 mmol/L 21.0-32.0 [facility] Magnesium [Mass/Vol] 2.3 mg/dL 1.6-2.6 [facility] Urea nitrogen/Creatinine [Mass ratio] 19.8 mg/mg 10-20 [facility] Laboratory - Hematology and Cell countsOrdered By: Dr. Amlodovar on 02-22-2023 Erythrocyte distribution width (RBC) [Entitic vol] 40.8 fL 35.1-43.9 [facility] Erythrocyte distribution width (RBC) [Ratio] 13.0 % 11.6-14.6 [facility] Immature granulocytes/100 WBC (Bld) 0.400 % 0.0-0.9 [facility] Comment on above: IG% - Immature Granu locytes (promyelocytes, myelocytes and metamyelocytes) > 1% indicates that a LEFT SHIFT is Present. MCH (RBC) [Entitic mass] 28.6 pg 27.0-32.0 [facility] Nucleated RBC/100 WBC (Bld) [Ratio] 0 % 0-5 [facility] [Mass/Vol]Or dered By: Dr. Almodovar on 02-22-2023 MCHC (RBC) [Mass/Vol] 33.0 g/dL 32-36 [facility] No Panel InformationOrdered By: Dr. Almodovar on 02-22-2023 Estimated Creatinine Clearance Calc 43.72 ml/min [facility] Estimated GFR (MDRD) Amer 84 mL/min >60 [facility] Comment on above: GFR Calc Estimated GFR (MDRD) Non-Af Amer 69 mL/min >60 [facility] Comment on above: Non- GFR Calc Platelets bldOrdered By: Dr. Almodovar on 02-22-2023 Platelets (Bld) [#/Vol] 314 10*3/uL 150-450 [facility] Serum or plasma calcium misti urement (mass/volume)Ordered By: Dr. Almodovar on 02-22-2023 Calcium [Mass/Vol] 8.9 mg/dL 8.5-10.1 [facility] Serum or plasma cholesterol in HDL measurement (mass/volume)Ordered By: Dr. Almodovar on 02-22-2023 Cholesterol in HDL [Mass/Vol] 44 mg/dL >40 [facility] Comment on above: The drugs N-Acetylcy steine and Metamizole may falsely depress this assay. Reference Range HDL <40 mg/dL Low HDL Cholesterol HDL >or= 60 mg/dL High HDL Cholesterol Serum or plasma cholesterol in VLDL measurement (mass/volume)Ordered By: Dr. Almodovar on 02-22-2023 Cholesterol in VLDL [Mass/Vol] 22 mg/dL 5-40 [facility] Serum or plasma creatinine m easurement (mass/volume)Ordered By: Dr. Almodovar on 02-22-2023 Creatinine [Mass/Vol] 0.86 mg/dL 0.55-1.02 [facility] Comment on above: The validity of the calculated GFR & GFRAA in patients over 70 years has not been determined. Clinical correlation is essential. Serum or plasma low density lipoprotein (LDL) cholesterol measurement (mass/volume)Ordered By: Dr. Almodovar on 02-22-2023 Cholesterol in LDL [Mass/Vol] 150 mg/dL 0-130 [facility] Serum or plasma urea nitroge n measurement (mass/volume)Ordered By: Dr. Almodovar on 02-22-2023 Urea nitrogen [Mass/Vol] 17 mg/dL 7-18 [facility] Thin prep Papanicolaou smear with manual screeningOrdered By: Dr. Almodovar on 02-22-2023 Thin prep Papanicolaou smear with manual screening 7 5-15 [facility] Whole blood hemoglobin A1c/t otal hemoglobin ratio (mass fraction)Ordered By: Dr. Almodovar on 02-22-2023 HbA1c (Bld) [Mass fraction] 6.1 % 3.8-5.6 [facility] Comment on above: Normal < 5.7 % Predi abetic 5.7 - 6.4 % Diabetic >or= 6.5 % Please note range changes. Absolute lymphocyte countOrd ered By: Dr. Mendoza on 02-21-2023 Lymphocytes Auto (Unsp spec) [#/Vol] 1.79 10*3/uL 0.83-4.51 [facility] Basophil percentageOrdered B y: Dr. Mendoza on 02-21-2023 Basophils/100 WBC (Bld) 0.3 % 0-1 [facility] Chloride [Moles/Vol] 105 mmol/L 98-107 [facility] Eosinophils/100 WBC (Bld) 0.0 % 0-5 [facility] Glucose [Mass/Vol] 123 mg/dL 74-106 [facility] Comment on above: Fasting Glucose resu lt from 100 to 125 mg/dL suggests IMPAIRED HOMEOSTASIS per A.D.A. criteria. Neutrophils (Bld) [#/Vol] 5.1 10*3/uL 2.0-7.7 [facility] Neutrophils/100 WBC (Bld) 66.4 % 47-70 [facility] Potassium [Moles/Vol] 3.8 mmol/L 3.5-5.1 [facility] Sodium [Moles/Vol] 138 mmol/L 136-145 [facility] WBC (Bld) [#/Vol] 7.7 10*3/uL 4.4-11.0 [facility] Blood erythrocytes count (nu mber/volume)Ordered By: Dr. Mendoza on 02-21-2023 RBC (Bld) [#/Vol] 5.05 10*6/uL 4.2-5.4 [facility] Blood hemoglobin measurement (mass/volume)Ordered By: Dr. Mendoza on 02-21-2023 Hemoglobin (Bld) [Mass/Vol] 14.1 g/dL 12.0-15.0 [facility] Blood lymphocytes/100 leukoc ytesOrdered By: Dr. Mendoza on 02-21-2023 Lymphocytes/100 WBC (Bld) 23.3 % 19-41 [facility] Blood monocytes/100 leukocyt esOrdered By: Dr. Mendoza on 02-21-2023 Monocytes/100 WBC (Bld) 9.6 % 0-10 [facility] Blood platelet mean volumeOr dered By: Dr. Mendoza on 02-21-2023 Platelet mean volume (Bld) [Entitic vol] 10.4 fL 6.2-12.0 [facility] Determination of erythrocyte mean corpuscular volume (MCV)Ordered By: Dr. Mendoza on 02-21-2023 MCV (RBC) [Entitic vol] 83.4 fL 81-99 [facility] Glucose Glucometer (dC) [M ass/Vol]Ordered By: Dr. Mendoza on 02-21-2023 Glucose [Mass/Vol] 109 mg/dL 74-106 [facility] Comment on above: MANAGEMENT OF PATIEN T CARE PER NURSING PROTOCOL Hematocrit Auto (Bld) [Volum e fraction]Ordered By: Dr. Mendoza on 02-21-2023 Hematocrit (Bld) [Volume fraction] 42.1 % 37-47 [facility] INR in Blood by Coagulation assayOrdered By: Dr. Mendoza on 02-21-2023 INR Coag (Bld) [Relative time] 1.0 {INR} [facility] Laboratory - Chemistry and C hemistry - challengeOrdered By: Dr. Mendoza on 02-21-2023 CO2 [Moles/Vol] 27.0 mmol/L 21.0-32.0 [facility] Urea nitrogen/Creatinine [Mass ratio] 17.3 mg/mg 10-20 [facility] Laboratory - CoagulationOrde red By: Dr. Mendoza on 02-21-2023 aPTT Coag (Bld) [Time] 34.9 s 24.1-36.2 [facility] PT Coag (PPP) [Time] 13.0 s 11.7-14.9 [facility] Laboratory - Hematology and Cell countsOrdered By: Dr. Mendoza on 02-21-2023 Erythrocyte distribution width (RBC) [Entitic vol] 38.7 fL 35.1-43.9 [facility] Erythrocyte distribution width (RBC) [Ratio] 12.8 % 11.6-14.6 [facility] Immature granulocytes/100 WBC (Bld) 0.400 % 0.0-0.9 [facility] Comment on above: IG% - Immature Granu locytes (promyelocytes, myelocytes and metamyelocytes) > 1% indicates that a LEFT SHIFT is Present. MCH (RBC) [Entitic mass] 27.9 pg 27.0-32.0 [facility] Nucleated RBC/100 WBC (Bld) [Ratio] 0 % 0-5 [facility] MCHC Auto (RBC) [Mass/Vol]Or dered By: Dr. Mendoza on 02-21-2023 MCHC (RBC) [Mass/Vol] 33.5 g/dL 32-36 [facility] No Panel InformationOrdered By: Dr. Mendoza on 02-21-2023 Estimated Creatinine Clearance Calc 43.22 ml/min [facility] Estimated GFR (MDRD) Amer 83 mL/min >60 [facility] Comment on above: GFR Calc Estimated GFR (MDRD) Non-Af Amer 69 mL/min >60 [facility] Comment on above: Non- GFR Calc Troponin I High Sensitivity 7 pg/mL 3.0-54.0 [facility] Comment on above: Please Note: New [place] t Units and Gender Specific Reference Ranges. For more information see Policy Stat Procedure [place] High Sensitivity Troponin (TNIH) and attachments. Platelets bldOrdered By: Dr. Mendoza on 02-21-2023 Platelets (Bld) [#/Vol] 330 10*3/uL 150-450 [facility] Serum or plasma calcium misti urement (mass/volume)Ordered By: Dr. Mendoza on 02-21-2023 Calcium [Mass/Vol] 9.6 mg/dL 8.5-10.1 [facility] Serum or plasma creatinine m easurement (mass/volume)Ordered By: Dr. Mendoza on 02-21-2023 Creatinine [Mass/Vol] 0.87 mg/dL 0.55-1.02 [facility] Comment on above: The validity of the calculated GFR & GFRAA in patients over 70 years has not been determined. Clinical correlation is essential. Serum or plasma urea nitroge n measurement (mass/volume)Ordered By: Dr. Mendoza on 02-21-2023 Urea nitrogen [Mass/Vol] 15 mg/dL 7-18 [facility] Thin prep Papanicolaou smear with manual screeningOrdered By: Dr. Mendoza on 02-21-2023 Thin prep Papanicolaou smear with manual screening 6 5-15 [facility] Vital Signs Date Time Vital Sign Value Performing Clinician Faci lity 06-13-2025 14:00-0400 Body height 152.4 cm Tomasz Yang 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 Work Phone: [facility] 06-13-2025 14:00-0400 Body mass index (BMI) [Ratio] 31.44 kg/m2 Tomasz Yang 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 Work Phone: [facility] 06-13-2025 14:00-0400 Body weight 73.03 kg Tomasz Yang APRN.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 ENGINEER Work Phone: [facility] 06-13-2025 14:00-0400 Diastolic blood pressure 70 mm[Hg] Tomasz Yang 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 Work Phone: [facility] 06-13-2025 14:00-0400 Heart rate 55 /min Tomasz Yang APRN.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 ENGINEER Work Phone: [facility] 06-13-2025 14:00-0400 Systolic blood pressure 128 mm[Hg] Tomasz Yang APRN.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 ENGINEER Work Phone: [facility] 12-25-2024 10:58-0500 Body mass index (BMI) [Ratio] 24.52 kg/m2 Radha Zamora 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 Work Phone: [facility] 12-25-2024 10:58-0500 Body weight 68.9 kg Radha Podlogar 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 Work Phone: [facility] 12-25-2024 10:58-0500 Diastolic blood pressure 66 mm[Hg] Radha Podlogar 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 Work Phone: [facility] 12-25-2024 10:58-0500 Heart rate 51 /min Radha Podlogar 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 Work Phone: [facility] 12-25-2024 10:58-0500 Respiratory rate 18 /min Radha Podlogar 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 Work Phone: [facility] 12-25-2024 10:58-0500 SaO2% (BldA) [Mass fraction] 99 % Radha Podlogar 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 Work Phone: [facility] 12-25-2024 10:58-0500 Systolic blood pressure 118 mm[Hg] Radha Podlogar 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 Work Phone: [facility] 09-02-2024 12:05-0400 Body mass index (BMI) [Ratio] 25.28 kg/m2 Radha Podlogar 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 Work Phone: [facility] 09-02-2024 12:05-0400 Body weight 71.03 kg Radha Podlogar 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 Work Phone: [facility] 09-02-2024 12:05-0400 Diastolic blood pressure 66 mm[Hg] Radha Podlogar 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 Work Phone: [facility] 09-02-2024 12:05-0400 Heart rate 57 /min Radha Podlogar 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 Work Phone: [facility] 09-02-2024 12:05-0400 Respiratory rate 18 /min Radha Podlogar 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 Work Phone: [facility] 09-02-2024 12:05-0400 SaO2% (BldA) [Mass fraction] 98 % Radha Podlogar 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 Work Phone: [facility] 09-02-2024 12:05-0400 Systolic blood pressure 114 mm[Hg] Radha Zamora 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 Work Phone: [facility] [facility] 06-24-2024 10:05-0400 Body mass index (BMI) [Ratio] 30.28 kg/m2 Ceci Vera MD Work Phone: [facility] 06-24-2024 10:05-0400 Body weight 73.9 kg Ceci Vera MD Work Phone: [facility] 06-24-2024 10:05-0400 Diastolic blood pressure 66 mm[Hg] Ceci Vera MD Work Phone: [facility] 06-24-2024 10:05-0400 Heart rate 91 /min Ceci Vera MD Work Phone: [facility] 06-24-2024 10:05-0400 Respiratory rate 16 /min Ceci Vera MD Work Phone: [facility] 06-24-2024 10:05-0400 SaO2% (BldA) [Mass fraction] 98 % Ceci Vera MD Work Phone: [facility] 06-24-2024 10:05-0400 Systolic blood pressure 118 mm[Hg] Ceci Vera MD Work Phone: [facility] 03-22-2024 11:13-0400 Body mass index (BMI) [Ratio] 30.52 kg/m2 Ceci Vera MD Work Phone: [facility] 03-22-2024 11:13-0400 Body weight 74.48 kg Ceci Vera MD Work Phone: [facility] 03-22-2024 11:13-0400 Diastolic blood pressure 64 mm[Hg] Ceci Vera MD Work Phone: [facility] 03-22-2024 11:13-0400 Heart rate 62 /min Ceci Vera MD Work Phone: [facility] 03-22-2024 11:13-0400 Respiratory rate 16 /min Ceci Vera MD Work Phone: [facility] 03-22-2024 11:13-0400 SaO2% (BldA) [Mass fraction] 96 % Ceci Vera MD Work Phone: [facility] 03-22-2024 11:13-0400 Systolic blood pressure 106 mm[Hg] Ceci Vera MD Work Phone: [facility] 08-21-2023 09:01-0400 Body weight 72.03 kg Radha Podlogar 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 Work Phone: [facility] 08-21-2023 09:01-0400 Diastolic blood pressure 68 mm[Hg] Radha Podlogar 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 Work Phone: [facility] 08-21-2023 09:01-0400 Heart rate 70 /min Radha Podlogar 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 Work Phone: [facility] 08-21-2023 09:01-0400 Respiratory rate 16 /min Radha Podlogar 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 Work Phone: [facility] 08-21-2023 09:01-0400 SaO2% (BldA) [Mass fraction] 98 % Radha Podlogar 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 Work Phone: [facility] 08-21-2023 09:01-0400 Systolic blood pressure 122 mm[Hg] Radha Podlogar 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 Work Phone: [facility] 06-20-2023 11:44-0400 Body height 156.2 cm Trista David MD Work Phone: [facility] 06-20-2023 11:44-0400 Body temperature 98.01 [degF] Trista David MD Work Phone: [facility] 06-20-2023 11:44-0400 Body weight 70.99 kg Trista David MD Work Phone: [facility] 06-20-2023 11:44-0400 Diastolic blood pressure 58 mm[Hg] Trista David MD Work Phone: [facility] 06-20-2023 11:44-0400 Heart rate 69 /min Trista David MD Work Phone: [facility] 06-20-2023 11:44-0400 Respiratory rate 14 /min Trista David MD Work Phone: [facility] 06-20-2023 11:44-0400 SaO2% (BldA) [Mass fraction] 98 % Trista David MD Work Phone: [facility] 06-20-2023 11:44-0400 Systolic blood pressure 139 mm[Hg] Trista David MD Work Phone: [facility] 05-15-2023 13:16-0400 Body weight 72.21 kg Ceci Vera MD Work Phone: [facility] 05-15-2023 13:16-0400 Diastolic blood pressure 60 mm[Hg] Ceci Vera MD Work Phone: [facility] 05-15-2023 13:16-0400 Heart rate 66 /min Ceci Vera MD Work Phone: [facility] 05-15-2023 13:16-0400 Respiratory rate 16 /min Ceci Vera MD Work Phone: [facility] 05-15-2023 13:16-0400 SaO2% (BldA) [Mass fraction] 99 % Ceci Vera MD Work Phone: [facility] 05-15-2023 13:16-0400 Systolic blood pressure 118 mm[Hg] Ceci Vera MD Work Phone: [facility] 03-13-2023 16:01-0400 Diastolic blood pressure 78 mm[Hg] Ceci Vera MD Work Phone: [facility] 03-13-2023 16:01-0400 Heart rate 67 /min Ceci Vera MD Work Phone: [facility] 03-13-2023 16:01-0400 Respiratory rate 16 /min Ceci Vera MD Work Phone: [facility] 03-13-2023 16:01-0400 SaO2% (BldA) [Mass fraction] 97 % Ceci Vera MD Work Phone: [facility] 03-13-2023 16:01-0400 Systolic blood pressure 126 mm[Hg] Ceci Vera MD Work Phone: [facility] 02-22-2023 12:10-0400 Body temperature 97.9 [degF] Dr. Yue Mendoza Work Phone: [facility] 02-22-2023 12:10-0400 Diastolic blood pressure 87 mm[Hg] Dr. Yue Mendoza Work Phone: [facility] 02-22-2023 12:10-0400 Heart rate 74 /min Dr. Yue Mendoza Work Phone: [facility] 02-22-2023 12:10-0400 Respiratory rate 16 /min Dr. Yue Mendoza Work Phone: [facility] 02-22-2023 12:10-0400 SaO2% (BldA) [Mass fraction] 95 % Dr. Yue Mendoza Work Phone: [facility] 02-22-2023 12:10-0400 Systolic blood pressure 162 mm[Hg] Dr. Yue Mendoza Work Phone: [facility] 02-22-2023 04:36-0400 Body mass index (BMI) [Ratio] 40.1 kg/m2 Dr. Yue Mendoza Work Phone: [facility] 02-22-2023 04:36-0400 Body weight 93.[address] Yue Mendoza Work Phone: [facility] 02-21-2023 15:21-0400 Body height 152.[address] Yue Mendoza Work Phone: [facility] 02-21-2023 12:11-0400 Diastolic blood pressure 90 mm[Hg] [facility] 02-21-2023 12:11-0400 Heart rate 75 /min [facility] 02-21-2023 12:11-0400 Respiratory rate 20 /min [facility] 02-21-2023 12:11-0400 SaO2% (BldA) [Mass fraction] 100 % [facility] 02-21-2023 12:11-0400 Systolic blood pressure 199 mm[Hg] [facility] 02-21-2023 10:25-0400 Body temperature 97.9 [degF] [facility] 02-21-2023 09:02-0400 Body mass index (BMI) [Ratio] 34 kg/m2 [facility] 02-21-2023 08:56-0400 Body height 152.4 cm [facility] 02-21-2023 08:56-0400 Body weight 78.9 kg [facility] Encounters Encounter Date Encounter Type Care Provider Facility Start: 06-13-2025 End: 06-13-2025 Patient encounter procedure Tomasz Yang APRN.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 ENGINEER Work Phone: [facility] Comment on above: Benign hypertension (Primary Dx); Coronary artery vasospasm; Mixed hyperlipidemia; Atypical atrial flutter (HCC); 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 Comment on above: Refill Request Start: 05-09-2025 End: 05-13-2025 Refill Tomasz Yang 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 Work Phone: [facility] Comment on above: Refill Request Start: 03-21-2025 End: 03-24-2025 Refill Ceci Vera MD Work Phone: [facility] Comment on above: Refill Request Start: 02-25-2025 End: 03-28-2025 ambulatory Ceci Vera MD Work Phone: [facility] Start: 02-14-2025 End: 02-15-2025 Refill Ceci Vera MD Work Phone: [facility] Comment on above: Refill Request Start: 01-21-2025 End: 03-23-2025 Follow-up encounter Elisabeth Solares LPN [facility] Start: 01-14-2025 End: 01-14-2025 ambulatory RADHA PODLOGAR Facility:[facility] Start: 01-14-2025 End: 01-14-2025 Subsequent hospital visit by physician [facility] Work Phone: Radiology Comment on above: Thyroid nodule [E04. 1] Start: 01-08-2025 End: 01-08-2025 Follow-up encounter Radha Zamora APRN.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 ENGINEER Work Phone: [facility] [place] Comment on above: Thyroid nodule (Prim tomasa Dx) Start: 01-03-2025 End: 01-03-2025 ambulatory RADHA PODLOGAR Facility:[facility] Start: 01-03-2025 End: 01-03-2025 Subsequent hospital visit by physician [facility] (I-Stat) Work Phone: Cat Scan Comment on above: Abnormal CT scan of lung [R91.8] Start: 12-30-2024 End: 03-01-2025 Follow-up encounter Elisabeth Solares LPN [facility] Start: 12-25-2024 End: 12-25-2024 ambulatory RADHA PODLOGAR Facility:[facility] Start: 12-25-2024 End: 12-25-2024 Patient encounter procedure Radha Podlogar 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 Work Phone: [facility] Comment on above: Hypertension, essent ial (Primary Dx); Encounter for immunization; Anemia, unspecified type; Cerebrovascular accident (CVA), unspecified mechanism (HCC); Abnormal CT scan of lung; Atrial flutter, unspecified type (HCC); Hyperlipidemia, mixed; Daytime somnolence Start: 12-25-2024 End: 12-25-2024 ambulatory RADHA PODLOGAR Facility:[facility] Start: 12-11-2024 End: 12-11-2024 Refill Radha Podlogar 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 [facility] Comment on above: Refill Request Start: 12-09-2024 End: 12-12-2024 Telephone encounter Tomasz Yang APRN.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 ENGINEER Work Phone: [facility] Start: 12-07-2024 End: 12-09-2024 Refill Tomasz Yang APRN.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 ENGINEER Work Phone: [facility] Comment on above: Refill Request Start: 12-02-2024 End: 12-02-2024 Refill Ceci Vera MD Work Phone: [facility] Comment on above: Refill Request Start: 11-10-2024 End: 11-11-2024 Refill Tomasz Yang APRN.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 ENGINEER Work Phone: [facility] Comment on above: Refill Request Start: 11-05-2024 End: 11-05-2024 Refill Tomasz Yang APRN.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 ENGINEER Work Phone: [facility] Comment on above: Refill Request Start: 10-07-2024 End: 10-07-2024 Refill Tomasz Yang APRN.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 ENGINEER Work Phone: [facility] Comment on above: Refill Request Start: 10-02-2024 End: 10-03-2024 Refill Rosalind Stoll APRN.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 ENGINEER Work Phone: [facility] Comment on above: Refill Request Start: 09-29-2024 End: 09-30-2024 Refill Ceci Vera MD Work Phone: [facility] [place] Comment on above: Refill Request Start: 09-17-2024 End: 09-17-2024 Refill Ceci Vera MD Work Phone: [facility] Comment on above: Refill Request Start: 09-16-2024 End: 09-17-2024 Telephone encounter Tomasz Yang 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 Work Phone: [facility] Comment on above: Orders Refill Request Start: 09-10-2024 End: 10-19-2024 Telephone encounter Radha Zamora APRN.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 ENGINEER Work Phone: [facility] Comment on above: left forms placed in mailbox Start: 09-09-2024 End: 09-10-2024 Telephone encounter Ceci Vera MD Work Phone: [facility] [place] Comment on above: Medication Problem Start: 09-02-2024 End: 09-02-2024 Telephone encounter Brian Reich MD [facility] Department Comment on above: Fab[facility] Transition of Care Medication Problem Start: 09-02-2024 End: 09-02-2024 Patient encounter procedure Radha Zamora 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 Work Phone: [facility] Comment on above: Hospital discharge f ollow-up (Primary Dx); Abnormal CT scan of lung; Encounter for immunization; Pneumonia of left lung due to infectious organism, unspecified part of lung; Atrial flutter, unspecified type (HCC) Start: 09-02-2024 End: 09-02-2024 ambulatory CECI VERA Facility:[facility] Start: 08-26-2024 End: 08-26-2024 Telephone encounter Brian Reich MD [facility] Department Comment on above: [facility] Transition of Care Start: 08-20-2024 End: 08-20-2024 Telephone encounter Brian Reich MD [facility] Department Comment on above: [facility]ric Transition of Care Start: 08-19-2024 End: 08-19-2024 Telephone encounter Jolene Moctezuma 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 Work Phone: MR PROVIDER ADULT Comment on above: Appointment Start: 08-19-2024 End: 08-19-2024 Evaluation and management of inpatient CARY BA MD Facility:[id number] Start: 08-18-2024 End: 08-18-2024 ambulatory Morris Valverde RT(R) Nuclear Medicine Comment on above: Radiology [place] Start: 08-18-2024 End: 08-18-2024 Patient encounter procedure Morris Valverde RT(R) Nuclear Medicine Start: 08-18-2024 End: 08-18-2024 Evaluation and management of inpatient CECI VERA Facility:[id number] Start: 08-16-2024 Evaluation and management of inpatient JOE WATTS Facility:[id number] Start: 08-16-2024 End: 08-16-2024 Telephone encounter Kenneth Raymond MD Work Phone: [facility] Provider Adult Comment on above: Hospital To Hospital Start: 08-16-2024 End: 08-16-2024 Emergency department patient visit Shahid Vera Facility:[facility] Start: 08-14-2024 End: 08-14-2024 Telephone encounter Ceci Vera MD Work Phone: [facility] Comment on above: Results Start: 08-14-2024 End: 08-14-2024 ambulatory CECI VERA Facility:[facility] Start: 08-10-2024 End: 08-12-2024 Refill Radha Zamora APRN.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 ENGINEER Work Phone: [facility] Comment on above: Refill Request Start: 06-24-2024 End: 06-24-2024 Patient encounter procedure Ceci Vera MD Work Phone: [facility] Comment on above: Hypertension, essent ial (Primary Dx); Hyperlipidemia, mixed; Cerebrovascular accident (CVA), unspecified mechanism (HCC); PATITO (acute kidney injury) (HCC); Right hemiparesis (HCC); Right leg swelling; Chronic right shoulder pain; Limited range of motion (ROM) of shoulder; Daytime somnolence; Class 1 obesity due to excess calories with body mass index (BMI) of 30.0 to 30.9 in adult, unspecified whether serious comorbidity present; Screening for colon cancer Start: 06-24-2024 End: 06-24-2024 ambulatory CECI VERA Facility:[facility] Start: 04-25-2024 Telephone encounter Shahid Vera MD Work Phone: [facility] Comment on above: Results Start: 04-24-2024 End: 04-24-2024 ambulatory CECI VERA Facility:[facility] Start: 03-29-2024 Refill Ceci Vera MD Work Phone: [facility] Comment on above: Refill Request Start: 03-26-2024 Telephone encounter Shahid Vera MD Work Phone: [facility] Comment on above: Results Start: 03-25-2024 Telephone encounter Shahid Vera MD Work Phone: [facility] Comment on above: Results Start: 03-22-2024 End: 03-22-2024 Subsequent hospital visit by physician Xr [facility] [place] Work Phone: Radiology Comment on above: Chronic right should er pain [M25.511, G89.29] Start: 03-22-2024 End: 03-22-2024 Patient encounter procedure Ceci Vera MD Work Phone: [facility] Comment on above: Hypertension, essent ial (Primary Dx); Hyperlipidemia, mixed; Anxiety; Major depressive disorder, remission status unspecified, unspecified whether recurrent; Class 1 obesity due to excess calories with body mass index (BMI) of 30.0 to 30.9 in adult, unspecified whether serious comorbidity present; Cerebrovascular accident (CVA), unspecified mechanism (HCC); Daytime somnolence; Chronic right shoulder pain; Limited range of motion (ROM) of shoulder; Screening mammogram, encounter for Start: 02-09-2024 Refill Radha Zamora APRN.CNP Work Phone: [facility] Comment on above: Refill Request Start: 09-18-2023 End: 09-18-2023 ambulatory Edwardo Sherwood PT Work Phone: [facility] Comment on above: Cerebrovascular acci dent (CVA), unspecified mechanism (HCC) (Primary Dx); Right sided weakness Start: 08-21-2023 End: 08-21-2023 Patient encounter procedure Radha Zamora APRN.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 ENGINEER Work Phone: [facility] Comment on above: Hypertension, essent ial (Primary Dx); Chronic insomnia; Cerebrovascular accident (CVA), unspecified mechanism (HCC); Major depressive disorder, remission status unspecified, unspecified whether recurrent; Right sided weakness; Bilateral carotid bruits; Osteoporosis, unspecified osteoporosis type, unspecified pathological fracture presence Start: 08-18-2023 End: 08-18-2023 ambulatory Edwardomarco Sherwood PT Work Phone: [facility] Comment on above: Cerebrovascular acci dent (CVA), unspecified mechanism (HCC) (Primary Dx); Right sided weakness Start: 08-11-2023 End: 08-11-2023 ambulatory Edwardomarco Sherwood PT Work Phone: [facility] Comment on above: Cerebrovascular acci dent (CVA), unspecified mechanism (HCC) (Primary Dx); Right sided weakness Start: 08-08-2023 End: 08-08-2023 ambulatory Nerissa Miner APRN.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 ENGINEER Work Phone: [facility] Comment on above: 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); Right sided weakness; Mixed hyperlipidemia; Essential hypertension; History of ischemic stroke Start: 08-08-2023 End: 08-08-2023 Telemedicine consultation with patient Nerissa Kristofer REYES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 ENGINEER Work Phone: [facility] Start: 08-04-2023 End: 08-04-2023 ambulatory Edwardo Presley PT Work Phone: [facility] Comment on above: Cerebrovascular acci dent (CVA), unspecified mechanism (HCC) (Primary Dx); Right sided weakness Start: 07-25-2023 End: 07-25-2023 ambulatory Edwardo Presley PT Work Phone: [facility] Comment on above: Cerebrovascular acci dent (CVA), unspecified mechanism (HCC) (Primary Dx); Right sided weakness Start: 07-12-2023 Telephone encounter Shahid Vera MD Work Phone: [facility] Comment on above: Results Start: 07-11-2023 End: 07-11-2023 ambulatory Edwardo Sherwood PT Work Phone: [facility] Comment on above: Cerebrovascular acci dent (CVA), unspecified mechanism (HCC) (Primary Dx); Right sided weakness Start: 06-27-2023 End: 06-27-2023 ambulatory Darrian Nolasco PT [facility] Comment on above: Cerebrovascular acci dent (CVA), unspecified mechanism (HCC) (Primary Dx); Right sided weakness Start: 06-20-2023 End: 06-20-2023 Patient encounter procedure Trista David MD Work Phone: [facility] Comment on above: Arterial ischemic st roke (HCC) (Primary Dx); 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) Start: 06-19-2023 End: 06-19-2023 ambulatory Darrian Nolasco PT [facility] Comment on above: Cerebrovascular acci dent (CVA), unspecified mechanism (HCC) (Primary Dx); Right sided weakness Start: 06-16-2023 Refill Ceci Vera MD Work Phone: [facility] Comment on above: Refill Request Start: 06-12-2023 End: 06-13-2023 ambulatory Darrian Nolasco PT [facility] Comment on above: Cerebrovascular acci dent (CVA), unspecified mechanism (HCC) (Primary Dx); Right sided weakness Start: 06-06-2023 Telephone encounter Trista sneed MD Work Phone: [facility] Comment on above: Request Outside [facility] Records (Request Imaging and Records from [facility].) Start: 06-05-2023 End: 06-05-2023 ambulatory Corie Segal PTA Work Phone: [facility] Comment on above: Cerebrovascular acci dent (CVA), unspecified mechanism (HCC) (Primary Dx); Right sided weakness Start: 05-30-2023 End: 05-30-2023 Subsequent hospital visit by physician Bone Density [facility] Work Phone: Radiology Comment on above: Encounter for screen ing for osteoporosis [Z13.820] Start: 05-29-2023 End: 05-29-2023 ambulatory Corie Segal MEDICAL DOCTOR [facility] Phone[facility] Comment on above: Cerebrovascular acci dent (CVA), unspecified mechanism (HCC) (Primary Dx); Right sided weakness Start: 05-28-2023 ambulatory Ceci Vera MD Work Phone: [facility] Comment on above: Hair loss Start: 05-19-2023 Documentation procedure Mammog josephine Coordinator [facility] Start: 05-19-2023 Letter encounter Mammography Coordinator [facility] Department Start: 05-19-2023 Telephone encounter Shahid Vera MD Work Phone: [facility] Comment on above: Results Start: 05-18-2023 End: 05-18-2023 Subsequent hospital visit by physician Screen Mammo [facility] Comment on above: Screening mammogram for breast cancer [Z12.31] Start: 05-16-2023 End: 05-16-2023 ambulatory Darrian Nolasco PT [facility] Comment on above: Cerebrovascular acci dent (CVA), unspecified mechanism (HCC) (Primary Dx); Right sided weakness Start: 05-15-2023 End: 05-15-2023 Patient encounter procedure Ceci Vera MD Work Phone: [facility] Comment on above: Encounter to [facility] (Primary Dx); Cerebrovascular accident (CVA), unspecified mechanism (HCC); Right sided weakness; Essential hypertension, benign; Chronic insomnia; Anxiety; Overweight (BMI 25.0-29.9); Encounter for screening for osteoporosis; Screening mammogram for breast cancer; Asymptomatic postmenopausal state Start: 05-11-2023 End: 05-11-2023 ambulatory Darrian Nolasco PT [facility] Comment on above: Cerebrovascular acci dent (CVA), unspecified mechanism (HCC) (Primary Dx); Right sided weakness Start: 05-09-2023 End: 05-09-2023 ambulatory Corie Segal MEDICAL DOCTOR Work Phone: [facility] Comment on above: Cerebrovascular acci dent (CVA), unspecified mechanism (HCC) (Primary Dx); Right sided weakness Start: 05-05-2023 End: 05-05-2023 ambulatory CECI VERA Facility:[facility] Start: 05-04-2023 End: 05-04-2023 [facility] Comment on above: Cerebrovascular acci dent (CVA), unspecified mechanism (HCC) (Primary Dx); Right sided weakness Start: 05-02-2023 End: 05-02-2023 ambulatory Darrian [facility] Comment on above: Cerebrovascular acci dent (CVA), unspecified mechanism (HCC) (Primary Dx); Right sided weakness Start: 04-27-2023 End: 04-27-2023 ambulatory Darrian [facility] Comment on above: Cerebrovascular acci dent (CVA), unspecified mechanism (HCC) (Primary Dx); Right sided weakness Start: 04-18-2023 End: 04-18-2023 [facility] Comment on above: Cerebrovascular acci dent (CVA), unspecified mechanism (HCC) (Primary Dx); Right sided weakness Start: 04-14-2023 End: 04-14-2023 ambulatory [facility] Comment on above: Cerebrovascular acci dent (CVA), unspecified mechanism (HCC) (Primary Dx); Right sided weakness Start: 04-07-2023 End: 04-07-2023 ambulatory CECI VERA Facility:[facility] Start: 04-07-2023 End: 04-07-2023 ambulatory CECI VERA Facility:[facility] Start: 04-04-2023 Telephone encounter Daphne Hill DO Work Phone: Stroke Neurology Comment on above: Request Outside [facility] anam Records (Request Imaging from [facility].) Start: 03-15-2023 Telephone encounter Seun Castro desiree PSS [facility] Comment on above: Home Care Start: 03-13-2023 End: 03-13-2023 Patient encounter procedure Ceci Vera MD Work Phone: [facility] [place] Comment on above: Cerebrovascular acci dent (CVA), unspecified mechanism (HCC) (Primary Dx); Right sided weakness; Bilateral carotid bruits; Anxiety; Hypertension, essential; Right hemiparesis (HCC) Start: 02-22-2023 End: 02-22-2023 Evaluation and management of inpatient Dr. Yue Mendoza Work Phone: [facility] Start: 02-21-2023 Non-patient / Non-visit Dr. Cindi Mendoza Work Phone: [facility] Start: 02-21-2023 Non-patient / Non-visit Dr. Cindi Mendoza Work Phone: [facility] Start: 02-21-2023 Evaluation and management of inpatient [facility] Start: 02-21-2023 observation encounter W [facility] Work Phone: Procedures Date Procedure Procedure Detail Performing Clinician Start: 06-13-2025 Ecg routine ecg w/le ast 12 lds i&r only Tomasz Yang 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 Work Phone: Start: 08-17-2024 Lipid 1995 panel - S fran or Plasma Morris Valverde RT(R) Start: 03-22-2024 Radex shoulder compl ete minimum 2 views Ceci Vera MD Work Phone: Start: 03-22-2024 Lipid 1995 panel - S fran or Plasma Ceci Vera MD Work Phone: Start: 10-24-2023 Lipid 1995 panel - S fran or Plasma Radha Zamora 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 Work Phone: Start: 07-11-2023 Lipid 1995 panel - S fran or Plasma Edwardo Sherwood PT Work Phone: Start: 05-30-2023 Dxa bone density doreen dy 1/> sites axial skel Ceci Vera MD Work Phone: Start: 05-18-2023 End: 05-18-2023 Mammography Ceci lara MD Work Phone: Start: 02-21-2023 Plain chest X-ray Start: 02-21-2023 MRI of brain without contrast Dr. Yue Mendoza Work Phone: Start: 02-21-2023 CT angiography of he ad and neck Start: 02-21-2023 CT of head without contrast Start: 04-11-2013 Mammography Shahid Vera MD Work Phone: Plan of Treatment Date Care Activity Detail Author Start: 08-17-2029 Lipid panel Lipid Screening [facility] Start: 03-22-2029 Lipid panel Lipid Screening [facility] Start: 10-24-2028 Lipid panel Lipid Screening [facility] Start: 07-11-2028 Lipid 1996 panel - S fran or Plasma Lipid Screening [facility] Start: 07-11-2028 LIPID SCREEN LIPID SCREEN [facility] Start: 04-12-2028 LIPID SCREEN LIPID SCREEN [facility] Start: 2027 RSV Vaccine (1 - 1-d ose 75+ series) RSV Vaccine (1 - 1-dose 75+ series) [facility] Start: 12-25-2027 [facility] Start: 08-19-2027 [facility] Start: 08-18-2027 Diabetes Screening Diabetes Screenin g [facility] Start: 08-14-2027 Diabetes Screening Diabetes Screenin g [facility] Start: 04-24-2027 Diabetes Screening Diabetes Screenin g [facility] Start: 03-22-2027 Diabetes Screening Diabetes Screenin g [facility] Start: 10-24-2026 Diabetes Screening Diabetes Screenin g [facility] Start: 06-19-2026 End: 06-19-2026 Patient encounter procedure 06/19/2026 2:20 PM EDT Office Visit [facility] [address] [facility] [address] [place], [place] [id number] Tomasz Yang, 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 [address] [place] [address] 1 yr f/up [facility] [address] Comment on above: 1 yr f/up Start: 04-12-2026 DIABETES SCREEN DIABETES SCREEN [facility] Start: 04-12-2026 Diabetes Screening Diabetes Screenin g [facility] Start: 12-25-2025 Annual PCP Team Sand Operator ken Disease Visit Annual PCP Team Chronic Disease Visit [facility] Start: 12-25-2025 BP Controlled (<130/80) BP Controlle d (<130/80) [facility] Start: 12-25-2025 Covid-19 Vaccine ( season) Covid-19 Vaccine () [facility] Comment on above: Postponed from 07/21 (Declined at this time) Start: 09-02-2025 Annual PCP Team Sand Operator ken Disease Visit Annual PCP Team Chronic Disease Visit [facility] Start: 09-02-2025 BP Controlled (<130/80) BP Controlle d (<130/80) [facility] Start: 07-21-2025 Influenza vaccination C [facility] Start: 06-24-2025 Annual PCP Team Sand Operator ken Disease Visit Annual PCP Team Chronic Disease Visit [facility] Start: 06-24-2025 BP Controlled (<130/80) BP Controlle d (<130/80) [facility] Start: 06-24-2025 Covid-19 Vaccine () Covid-19 Vaccine ( season) [facility] Comment on above: Postponed from 07/21 (Declined at this time) Start: 06-24-2025 Pneumococcal Vaccine : 50+ (1 of 1 - PCV) Pneumococcal Vaccine: 50+ (1 of 1 - PCV) [facility] Comment on above: Postponed from 12/29 (Declined at this time) Start: 06-24-2025 Pneumococcal Vaccine : 65+ (1 of 1 - PCV) Pneumococcal Vaccine: 65+ (1 of 1 - PCV) [facility] Comment on above: Postponed from 12/29 (Declined at this time) Start: 06-24-2025 RSV Vaccine (1 - 1-d ose 60+ series) RSV Vaccine (1 - 1-dose 60+ series) [facility] Comment on above: Postponed from 12/29 (Declined at this time) Start: 06-24-2025 Shingrix Vaccine (1 of 2) Deluca grix Vaccine (1 of 2) [facility] Comment on above: Postponed from 12/29 (Declined at this time) Start: 06-24-2025 Urine microalbumin profile DTaP,Tdap,Td Vaccine (2 - Td or Tdap) [facility] Comment on above: Postponed from 08/01 (Declined at this time) Start: 06-24-2025 End: 06-24-2025 Patient encounter procedure [facility] Comment on above: 6 month follow up Start: 06-13-2025 End: 06-13-2025 Patient encounter procedure 06/13/2025 2:00 PM EDT Office Visit [facility] [phone] [place], [place] [id number] Tomasz Yang, 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 [address] [place] [address] overdue follow up [facility] [address] Comment on above: overdue follow up Start: 05-30-2025 Screening for osteoporosis Bone Density Screening [facility] Start: 05-19-2025 Influenza vaccination Influenza Vacc ine (#1) [facility] Comment on above: Postponed from 07/21 (Declined at this time) Start: 03-22-2025 Annual PCP Team Sand Operator ken Disease Visit Annual PCP Team Chronic Disease Visit [facility] Start: 03-22-2025 BP Controlled (<130/80) BP Controlle d (<130/80) [facility] Start: 01-14-2025 End: 01-14-2025 Patient encounter procedure 01/14/2025 10:45 AM EST Appointment Radiology [address] [place] [id number] Thyroid nodule Radiology Comment on above: Thyroid nodule Start: 01-03-2025 End: 01-03-2025 Patient encounter procedure 01/03/2025 1:20 PM EST Appointment Cat Scan [address] [place] [address] scan of lung [R91.8] Cat Scan Comment on above: Abnormal CT scan of lung [R91.8] Start: 12-25-2024 End: 03-26-2025 CBC W Auto Differential panel - Blood [facility] Work Phone: Comment on above: Expected: 12/25/2024 , Expires: 03/26/2025 Start: 12-25-2024 End: 03-26-2025 Comprehensive metabolic 2000 panel - Serum or Plasma [facility] Comment on above: Expected: 12/25/2024 , Expires: 03/26/2025 Start: 12-25-2024 End: 12-25-2024 Patient encounter procedure 12/25/2024 11:00 AM EST Office Visit [facility] [address] [place] [address] Radha Zamora APRN.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 ENGINEER [address] [place] [address] 6 month follow up [facility] Comment on above: 6 month follow up Start: 11-20-2024 Advance Directive Discussion Advance Directive Discussion [facility] Start: 11-20-2024 Medicare Advantage A nnual Wellness Visit Medicare Advantage Annual Wellness Visit [facility] Start: 10-11-2024 End: 10-02-2025 CT Chest WO contrast CT CHEST WO IVCON Radiology Routine Abnormal CT scan of lung Expected: 10/11/2024, Expires: 10/02/2025 [facility] Work Phone: Comment on above: Expected: 10/11/2024 , Expires: 10/02/2025 Start: 09-02-2024 End: 09-02-2024 Patient encounter procedure 09/02/2024 12:00 PM EDT Office Visit [facility] [address] [place] [address] Radha Zamora APRN.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 ENGINEER [address] [facility] [address] 1 week hospital follow up pneumonia, atrial flutter, need CT can in 4-8 weeks [facility] Comment on above: 1 week hospital foll ow up pneumonia, atrial flutter, need CT can in 4-8 weeks Start: 08-21-2024 Annual PCP Team Sand Operator ken Disease Visit Annual PCP Team Chronic Disease Visit [facility] Start: 08-21-2024 BP Controlled (<130/80) BP Controlle d (<130/80) [facility] Start: 08-14-2024 End: 11-13-2024 Bacteria identified in Urine by Culture URINE CULTURE Microbiology Routine Acute cystitis without hematuria Expected: 08/14/2024, Expires: 11/13/2024 [facility] Work Phone: Comment on above: Expected: 08/14/2024 , Expires: 11/13/2024 Start: 07-21-2024 Covid-19 Vaccine ( season) Covid-19 Vaccine () [facility] Start: 07-21-2024 Covid-19 Vaccine ( season) Covid-19 Vaccine ( season) [facility] Start: 07-21-2024 Influenza vaccination C [facility] Start: 06-24-2024 End: 09-23-2024 Comprehensive metabolic 2000 panel - Serum or Plasma COMPREHENSIVE METABOLIC PANEL Lab Routine PATITO (acute kidney injury) ([facility]) Expected: 06/24/2024, Expires: 09/23/2024 [facility] Work Phone: Comment on above: Expected: 06/24/2024 , Expires: 09/23/2024 Start: 06-24-2024 End: 09-23-2024 Hemoglobin A1c in Blood HEMOGLOBIN A1C Lab Routine PATITO (acute kidney injury) ([facility]) Expected: 06/24/2024, Expires: 09/23/2024 [facility] Comment on above: Expected: 06/24/2024 , Expires: 09/23/2024 Start: 06-24-2024 End: 09-23-2024 Microalbumin/Creatinine [Mass Ratio] in Urine ALBUMIN/CREATININE RATIO, URINE Lab Routine PATITO (acute kidney injury) ([facility]) Expected: 06/24/2024, Expires: 09/23/2024 [facility] Comment on above: Expected: 06/24/2024 , Expires: 09/23/2024 Start: 06-24-2024 End: 09-23-2024 Urinalysis complete panel - Urine URINALYSIS, WITH MICROSCOPIC Lab Routine PATITO (acute kidney injury) (HCC) Expected: 06/24/2024, Expires: 09/23/2024 [facility] Comment on above: Expected: 06/24/2024 , Expires: 09/23/2024 Start: 06-24-2024 End: 06-24-2024 Patient encounter procedure 06/24/2024 10:00 AM EDT Office Visit [facility] [place] [address] [place], [place] [id number] Ceci Vera MD [address] [place] [id number] 3 month follow up [facility] Comment on above: 3 month follow up Start: 05-22-2024 End: 04-21-2025 MG Breast Screening LYNETTE SCREENING Radiology Routine Screening mammogram, encounter for Expected: 05/22/2024, Expires: 04/21/2025 [facility] Comment on above: Expected: 05/22/2024 , Expires: 04/21/2025 Start: 05-19-2024 Influenza vaccination Influenza Vacc ine (#1) [facility] Comment on above: Postponed from 07/21 (Declined at this time) Start: 05-18-2024 Mammography [facility] Start: 05-18-2024 Screening for malign ant neoplasm of breast Mammogram Screening [facility] Start: 05-15-2024 ANNUAL PCP TEAM 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 SALESPERSON KEN DISEASE VISIT ANNUAL PCP TEAM CHRONIC DISEASE VISIT [facility] Start: 05-15-2024 BP CONTROLLED (<130/80) BP CONTROLLE D (<130/80) [facility] Start: 05-15-2024 COLORECTAL CANCER SCREENING COLORECTAL CANCER SCREENING [facility] Comment on above: Postponed from 12/29 (Declined at this time) Start: 05-15-2024 COVID-19 VACCINE (#1) COVID-19 VACCI NE (#1) [facility] Comment on above: Postponed from 06/28 (Declined at this time) Start: 05-15-2024 Pneumococcal Vaccine : 65+ (1 - PCV) Pneumococcal Vaccine: 65+ (1 - PCV) [facility] Comment on above: Postponed from 12/29 (Declined at this time) Start: 05-15-2024 Pneumococcal Vaccine : 65+ (1 of 1 - PCV) Pneumococcal Vaccine: 65+ (1 of 1 - PCV) [facility] Comment on above: Postponed from 12/29 (Declined at this time) Start: 05-15-2024 PNEUMOCOCCAL: 65+ (1 - PCV) PNEUMOCOCCAL: 65+ (1 - PCV) [facility] Comment on above: Postponed from 12/29 (Declined at this time) Start: 05-15-2024 Screening for malign ant neoplasm of colon Colorectal Cancer Screening [facility] Comment on above: Postponed from 12/29 (Declined at this time) Start: 05-15-2024 SHINGRIX VACCINE (1 of 2) DELUCA GRIX VACCINE (1 of 2) [facility] Comment on above: Postponed from 12/29 (Declined at this time) Start: 05-15-2024 Urine microalbumin profile [facility] Comment on above: Postponed from 08/01 (Declined at this time) Start: 04-25-2024 End: 07-25-2024 Hemoglobin A1c in Blood HEMOGLOBIN A1C Lab Routine Hyperglycemia Expected: 04/25/2024, Expires: 07/25/2024 [facility] Work Phone: Comment on above: Expected: 04/25/2024 , Expires: 07/25/2024 Start: 04-25-2024 End: 07-25-2024 Microalbumin/Creatinine [Mass Ratio] in Urine ALBUMIN/CREATININE RATIO, URINE Lab Routine PATITO (acute kidney injury) (HCC) Expected: 04/25/2024, Expires: 07/25/2024 [facility] Comment on above: Expected: 04/25/2024 , Expires: 07/25/2024 Start: 04-25-2024 End: 07-25-2024 Urinalysis complete panel - Urine URINALYSIS, WITH MICROSCOPIC Lab Routine PATITO (acute kidney injury) (HCC) Expected: 04/25/2024, Expires: 07/25/2024 [facility] Comment on above: Expected: 04/25/2024 , Expires: 07/25/2024 Start: 03-25-2024 End: 06-24-2024 Comprehensive metabolic 2000 panel - Serum or Plasma COMPREHENSIVE METABOLIC PANEL Lab Routine PATITO (acute kidney injury) (HCC) Expected: 03/25/2024, Expires: 06/24/2024 [facility] Work Phone: Comment on above: Expected: 03/25/2024 , Expires: 06/24/2024 Start: 03-13-2024 ANNUAL PCP TEAM 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 SALESPERSON KEN DISEASE VISIT ANNUAL PCP TEAM CHRONIC DISEASE VISIT [facility] Start: 03-13-2024 BP CONTROLLED (<130/80) BP CONTROLLE D (<130/80) [facility] Start: 11-20-2023 Advance Directive Discussion Advance Directive Discussion [facility] Start: 10-12-2023 End: 12-12-2023 Comprehensive metabolic 2000 panel - Serum or Plasma COMP METABOLIC PANEL Lab Routine Cerebrovascular accident (CVA), unspecified mechanism (HCC) Expected: 10/12/2023, Expires: 12/12/2023 [facility] Work Phone: Comment on above: Expected: 10/12/2023 , Expires: 12/12/2023 Start: 10-12-2023 End: 12-12-2023 Lipid 1996 panel - Serum or Plasma LIPID PANEL BASIC Lab Routine Cerebrovascular accident (CVA), unspecified mechanism (HCC) Expected: 10/12/2023, Expires: 12/12/2023 [facility] Work Phone: Comment on above: Expected: 10/12/2023 , Expires: 12/12/2023 Start: 07-21-2023 Covid-19 Vaccine () Covid-19 Vaccine () [facility] Start: 07-21-2023 Influenza vaccination [facility] Start: 07-21-2023 End: 07-19-2024 US CAROTID BILATERAL US CAROTID BILATERAL Radiology Routine Arterial ischemic stroke (HCC) 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) Expected: 07/21/2023, Expires: 07/19/2024 [facility] Work Phone: Comment on above: Expected: 07/21/2023 , Expires: 07/19/2024 Start: 07-15-2023 End: 09-14-2023 Lipid 1996 panel - Serum or Plasma LIPID PANEL BASIC Lab Routine Cerebrovascular accident (CVA), unspecified mechanism (HCC) Expected: 07/15/2023, Expires: 09/14/2023 [facility] Work Phone: Comment on above: Expected: 07/15/2023 , Expires: 09/14/2023 Start: 04-12-2023 End: 06-12-2023 Comprehensive metabolic 2000 panel - Serum or Plasma COMP METABOLIC PANEL Lab Routine Cerebrovascular accident (CVA), unspecified mechanism (HCC) Expected: 04/12/2023, Expires: 06/12/2023 [facility] Work Phone: Comment on above: Expected: 04/12/2023 , Expires: 06/12/2023 Start: 04-12-2023 End: 06-12-2023 LIPID PANEL, NONFASTING LIPID PANEL, NONFASTING Lab Routine Cerebrovascular accident (CVA), unspecified mechanism (HCC) Expected: 04/12/2023, Expires: 06/12/2023 [facility] Work Phone: Comment on above: Expected: 04/12/2023 , Expires: 06/12/2023 Start: 02-22-2023 Patient discharge [facility] Start: 02-22-2023 Admission procedure [facility] Start: 02-22-2023 Blood chemistry [facility] Start: 02-22-2023 [place] Start: 02-21-2023 Application of intermittent pneumatic compression device [facility] Start: 02-21-2023 Following clinical pathway protocol [facility] Start: 02-21-2023 Ambulation without limitation [facility] Start: 02-21-2023 Assessment of risk o f venous thromboembolism [facility] Start: 02-21-2023 Cardiac monitoring [facility] Start: 02-21-2023 Catheterization of vein [facility] Start: 02-21-2023 Continuous pulse oximetry [facility] Start: 02-21-2023 Elevation of head of bed [facility] Start: 02-21-2023 Exercises [place] Start: 02-21-[address] anned interventions [facility] Start: 02-21-2023 Incentive spirometry [facility] Start: 02-21-2023 Insertion of cathete r into peripheral vein [facility] Start: 02-21-2023 Measuring intake and output [facility] Start: 02-21-2023 Notification of physician [facility] Start: 02-21-2023 Oxygen therapy [facility] Start: 02-21-2023 Providing care accor ding to standard [facility] Start: 02-21-2023 Referral to occupati onal therapist [facility] Start: 02-21-2023 Referral to service [facility] Start: 02-21-2023 Tobacco use cessatio n education [facility] Start: 02-21-2023 [place] Start: 02-21-2023 MRI of brain without contrast Brain without Contrast [facility] Start: 02-21-2023 Verification routine [facility] Start: 02-21-2023 Admission procedure [facility] Start: 02-21-2023 Oxygen therapy [facility] Start: 02-21-2023 End: 02-21-2023 [facility] Start: 02-21-2023 Patient referral to dietitian [facility] Start: 11-20-2022 ADVANCE DIRECTIVE DISCUSSION ADVANCE DIRECTIVE DISCUSSION [facility] Start: 03-11-2018 LIPID SCREEN LIPID SCREEN [facility] Start: 2017 BONE DENSITY BONE DENSITY [facility] Start: 2017 Pneumococcal Vaccine : 65+ (1 of 1 - PCV) Pneumococcal Vaccine: 65+ (1 of 1 - PCV) [facility] Start: 2017 PNEUMOCOCCAL: 65+ (1 - PCV) PNEUMOCOCCAL: 65+ (1 - PCV) [facility] Start: 08-01-2017 Urine microalbumin profile [facility] Start: 12-11-2015 DIABETES SCREEN DIABETES SCREEN [facility] Start: 04-11-2014 COLORECTAL CANCER SCREENING COLORECTAL CANCER SCREENING [facility] Start: 04-11-2014 FECAL OCCULT BLOOD FECAL OCCULT BLOO D [facility] Start: 04-11-2014 Mammography MAMMOGRAM [facility] Start: 04-11-2014 Screening for malign ant neoplasm of colon [facility] Start: 2012 RSV Vaccine (1 - 1-d ose 60+ series) RSV Vaccine (1 - 1-dose 60+ series) [facility] Start: 2002 SHINGRIX VACCINE (1 of 2) DELUCA GRIX VACCINE (1 of 2) [facility] Start: 1997 COLOGUARD (FIT-DNA) COLOGUARD (FIT-D NA) [facility] Start: 1997 Colonoscopy COLONOSCOPY [facility] Start: [address] COLONOGRAPHY [facility] Start: 1997 Screening for malign ant neoplasm of colon [facility] Start: 1997 SIGMOIDOSCOPY SIGMOIDOSCOPY [facility] Start: 1970 BP CONTROLLED (<130/80) BP CONTROLLE D (<130/80) [facility] Start: 1970 HEPATITIS C SCREENING HEPATITIS C [facility] Start: 1970 Hepatitis C screening Hepatitis C [facility] Start: [birth year]28-1951 COVID-19 VACCINE (#1) COVID-19 VACCI NE (#1) [facility] Anion gap measurement [facility] BUN/Creatinine ratio [facility] Calcium [Mass/volume ] in Serum or Plasma [facility] Carbon dioxide, tota l [Moles/volume] in Serum or Plasma [facility] Chloride [Moles/volu me] in Serum or Plasma [facility] Cholesterol [Mass/vo lume] in Serum or Plasma [facility] Cholesterol in HDL [Mass/volume] in Serum or Plasma [facility] Cholesterol in LDL [Mass/volume] in Serum or Plasma [facility] Creatinine [Moles/vo lume] in Serum or Plasma [facility] CT Chest WO contrast CT CHEST WO IVCON Radiology Routine Abnormal CT scan of lung 01/03/2025 1:39 PM EST [facility] Work Phone: End: 03-27-2026 DBT Breast - bilateral screening LYNETTE SCREENING W CLARA Radiology Routine Encounter for screening mammogram for breast cancer 1 Occurrences starting 02/25/2025 until 03/27/2026 [facility] Work Phone: Comment on above: 1 Occurrences starti ng 02/25/2025 until 03/27/2026 End: 06-13-2024 DXA-AXIAL SKELETON DXA-AXIAL SKELETON Radiology Routine Encounter for screening for osteoporosis Asymptomatic postmenopausal state 1 Occurrences starting 05/15/2023 until 06/13/2024 [facility] Work Phone: Comment on above: 1 Occurrences starti ng 05/15/2023 until 06/13/2024 ECG COMPLETE ECG COMPLETE ECG Routine Atypical atrial flutter (HCC) 06/13/2025 1:53 PM EDT [facility] Work Phone: Glucose [Mass/volume ] in Serum or Plasma [facility] Hematocrit [Volume Fraction] of Blood [facility] Hemoglobin [Mass/vol ume] in Blood [facility] Hemoglobin.gastroint estin al.lower [Presence] in Stool by Immunoassay IMMUNOCHEMICAL FECAL OCCULT BLOOD TEST Lab Routine Screening for colon cancer Ordered: 06/24/2024 [facility] Comment on above: Ordered: 06/24/2024 End: 03-22-2025 HOME SLEEP APNEA TEST (HSAT) HOME SLEEP APNEA TEST (HSAT) Procedures Routine Daytime somnolence 1 Occurrences starting 03/22/2024 until 03/22/2025 [facility] Work Phone: Comment on above: 1 Occurrences starti ng 03/22/2024 until 03/22/2025 Leukocytes [#/volume ] in Blood [facility] Magnesium [Mass/volu me] in Serum or Plasma [facility] End: 06-13-2024 LYNETTE SCREENING LYNETTE SCREENING Radiology Routine Screening mammogram for breast cancer 1 Occurrences starting 05/15/2023 until 06/13/2024 [facility] Work Phone: Comment on above: 1 Occurrences starti ng 05/15/2023 until 06/13/2024 Mean corpuscular hemoglobin concentration determination [facility] Mean corpuscular hemoglobin determination [facility] Measurement of renal function [facility] End: 04-21-2025 MR Shoulder - right WO contrast MRI SHOULDER WO IVCON RIGHT Radiology Routine Chronic right shoulder pain Limited range of motion (ROM) of shoulder 1 Occurrences starting 03/22/2024 until 04/21/2025 [facility] Comment on above: 1 Occurrences starti ng 03/22/2024 until 04/21/2025 Neutrophil count [facility] Neutrophil percent differential count [facility] OUTSIDE VENDOR CARDI AC OUTPATIENT TELEMETRY OUTSIDE VENDOR CARDIAC OUTPATIENT TELEMETRY Holter Routine Paroxysmal ventricular tachycardia (HCC) Ordered: 09/16/2024 [facility] Work Phone: Comment on above: Ordered: 09/16/2024 Patient referral [facility] Work Phone: Platelets [#/volume] in Blood [facility] Potassium [Moles/vol ume] in Serum or Plasma [facility] PT PLAN OF CARE CERTIFICATION PT PLAN OF CARE CERTIFICATION Procedures Routine Cerebrovascular accident (CVA), unspecified mechanism (HCC) Right sided weakness Ordered: 06/16/2023 [facility] Comment on above: Ordered: 06/16/2023 Red blood cell count [facility] Red cell distributio n width determination [facility] Sodium [Moles/volume ] in Serum or Plasma [facility] Triglycerides measurement [facility] Urea nitrogen [Mass/volume] in Serum or Plasma [facility] End: 03-22-2025 US Carotid arteries - bilateral US CAROTID ARTERIES [facility] Vascular Lab Routine Cerebrovascular accident (CVA), unspecified mechanism (HCC) 1 Occurrences starting 03/22/2024 until 03/22/2025 [facility] Comment on above: 1 Occurrences starti ng 03/22/2024 until 03/22/2025 End: 03-13-2024 US CAROTID ARTERIES [facility] US CAROTID ARTERIES [facility] Vascular Lab Routine Cerebrovascular accident (CVA), unspecified mechanism (HCC) Bilateral carotid bruits 1 Occurrences starting 03/13/2023 until 03/13/2024 [facility] Work Phone: Comment on above: 1 Occurrences starti ng 03/13/2023 until 03/13/2024 End: 05-25-2025 US Kidney - bilateral and Urinary bladder US KIDNEY/BLADDER Radiology Routine PATITO (acute kidney injury) (HCC) 1 Occurrences starting 04/25/2024 until 05/25/2025 [facility] Comment on above: 1 Occurrences starti ng 04/25/2024 until 05/25/2025 End: 02-07-2026 US Thyroid gland US THYROID/PARATHYROID Radiology Routine Thyroid nodule 1 Occurrences starting 01/08/2025 until 02/07/2026 [facility] Work Phone: Comment on above: 1 Occurrences starti ng 01/08/2025 until 02/07/2026 US Thyroid gland US THYROID/PARA THYROID Radiology Routine Thyroid nodule 01/14/2025 11:02 AM EST [facility] Work Phone: VLDL cholesterol measurement [facility] Immunizations Immunization Date Immunization Notes Care Provider [facility] 12-25-2024 pneumococcal conjuga te (PCV20) vaccine, 20 valent (PREVNAR 20) Radha Zamora HAND ENDBAND CUTTERROB Work Phone: [facility] 12-25-2024 pneumococcal Conjugate, unspecified formulation Radha Zamora HAND ENDBAND CUTTER.KANG Work Phone: [facility] 09-05-2011 hepatitis B vaccine, adult dosage Ceci Vera MD Work Phone: [facility] Work Phone: 03-21-2011 hepatitis B vaccine, adult dosage Ceci Vera MD Work Phone: [facility] Work Phone: 02-04-2011 hepatitis B vaccine, adult dosage Ceci Vera MD Work Phone: [facility] Work Phone: 08-01-2007 tetanus toxoid, reduced diphtheria toxoid, and acellular pertussis vaccine, adsorbed Ceci Vera MD Work Phone: [facility] Work Phone: 06-13-1973 typhoid vaccine, unspecified formulation Ceci Vera MD Work Phone: [facility] Work Phone: 05-16-1973 typhoid vaccine, unspecified formulation Ceci Vera MD Work Phone: [facility] Work Phone: Payers Date Payer Category Payer Self-pay [id number] 2024 Medicare DEVOTED MEDICARE [facility] [id number] 2024-Present [phone] [address] [place] [id number] [facility] [id number] 2024 Private Health Insurance [facility] [id number] 2024 Unknown [id number] Medicare MEDICARE A ONLY [id number] Unknown COMMERCIAL OTHER [id number] Unknown [id number] Social History Date Type Detail Facility Start: 02-21-2023 End: 02-22-2023 Tobacco smoking status NHIS Unknown if ever smoked [facility] Start: 1950 Sex Assigned At Female [facility] Start: 02-21-2023 - [place] Start: 04-11-2013 End: 06-13-2025 Tobacco smoking status NHIS Never smoked tobacco [facility] Start: 04-11-2013 End: 06-13-2025 Tobacco use and exposure Smokeless tobacco non-user [facility] Start: 03-13-2023 Alcohol intake Current drinke r of alcohol (finding) [facility] Start: 1950 Sex Assigned At Not on file C [facility] Start: 05-15-2023 End: 06-13-2025 Alcohol intake Ex-drinker (finding) [facility] Start: 04-07-2023 End: 05-15-2023 History of Social function [facility] Start: 04-07-2023 End: 05-15-2023 Tobacco use panel [facility] National Score (1-100), lower number is lower risk 57 [facility] Start: 06-20-2023 Alcohol Comment less than monthly Cl [facility] Start: 06-19-2023 Tobacco smoking stat us NHIS Ex-smoker [facility] History of tobacco use Current smoker [facility] History of tobacco use Cigarette Smoker C [facility] Start: 08-17-2024 Alcohol Comment less than corrine hly; never heavy or daily drinker. [facility] Has the [employer], [employer], or water [employer] threatened to shut off services in your home in past 12Mo No [facility] (I/We) worried juanjo er (my/our) food would run out before (I/we) got money to buy more. Never true [facility] NEGATED: Highlighted rowStart: NINF History of tobacco use Passive smoker [facility] Goals Date Patient Goal Desired Activity /State Personal health goal Functional Status Date Assessment Result Facility 08-19-2024 Are you deaf, or do you have serious difficulty hearing No 08/19/2024 3:24 PM Jihan Ashby, NICK No [facility] 08-19-2024 Are you blind, or do you have serious difficulty seeing, even when wearing glasses No 08/19/2024 3:24 PM Jihan Ashby, RN No [facility] 08-19-2024 Do you have serious difficulty walking or climbing stairs No 08/19/2024 3:24 PM Jihan Ashby, NICK No [facility] 08-19-2024 Do you have difficul ty dressing or bathing No 08/19/2024 3:24 PM EDT Jihan Perez RN No [facility] 08-19-2024 Because of a physica l, mental, or emotional condition, do you have difficulty doing errands alone such as visiting a physician's office or shopping No 08/19/2024 3:24 PM EDT Jihan Perez RN No [facility] 02-22-2023 Functional status Activity Abili ty With Assist of 1;With Assist of 2 [facility] Work Phone: Mental Status Date Assessment Result Facility 08-19-2024 Because of a physica l, mental, or emotional condition, do you have serious difficulty concentrating, remembering, or making decisions No 08/19/2024 3:24 PM EDT Jihan Perez RN No [facility] 02-22-2023 Cognitive function Voice/Name [facility] Work Phone: 02-21-2023 Cognitive function Voice/Name [facility] Work Phone: Clinical Notes 08-01-2007 to 06-13-2025 Tomasz Yang, 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 - 06/13/2025 2:20 PM EDTTelephone Encounter - Tricia Elizondo MA - 05/14/2025 9:50 AM EDTTelephone Encounter - Tricia Elizondo MA - 05/14/2025 9:50 AM EDT Note Date & Type Note Facility 06-13-2025 History of Presen t illness Narrative [facility] Ceci Vera MD SUBJECTIVE: Jessica Lazcano is a 74 year old female who is here today for a follow up visit. The patient seen by Dr. Ba at [facility] in July 2024. The patient had an anaphylactic reaction to an antibiotic, she went to [facility] and was transferred to [facility] after being diagnosed with atrial flutter. The patient was having problems with atypical atrial flutter. Since that admission she has maintained sinus rhythm in the antiarrhythmic drug-free state. She feels great. She denies chest pain, shortness of breath, palpitations, PND, without any, syncope, near-syncope, or edema. PAST MEDICAL HISTORY Diagnosis Date Adjustment disorder with depressed mood Anxiety Atypical atrial flutter (HCC) 08/16/2024 By EKG from [facility] at 188 bpm with intermittent right bundle branch aberrancy. 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 No obstructive disease at that time. Treated chronically with amlodipine 10 mg daily. H/O cardiac catheterization 2001 At [facility]. No evidence of significant coronary disease. Thought to have coronary artery vasospasm. 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 Pradaxa 150 mg bid Mixed hyperlipidemia Osteoporosis PAST SURGICAL HISTORY Procedure Laterality Date APPENDECTOMY 1997 SECTION HX N/A 1985 PAST SURGICAL HISTORY OF exlporatory laparotomy STRESS ECHO FAMILY HISTORY Problem Relation Age of Onset Cancer Father lung cancer Diabetes Mother Cancer Mother lung cancer Heart Brother Heart Brother Cancer Sister cervical Heart Sister Diabetes Maternal Grandfather Heart Attack Maternal Grandfather Heart disease Maternal Grandmother Cancer Paternal Grandfather stomach SOCIAL HISTORY: Social History Tobacco Use Smoking status: Never Passive exposure: Never Smokeless tobacco: Never Substance Use Topics Alcohol use: Not Currently Comment: less than monthly; never heavy or daily drinker. Drug use: Never ALLERGIES: Lipitor [Atorvastatin] and Macrobid [Nitrofurantoin Monohyd/M-Cryst] CURRENT MEDICATIONS: Current Outpatient Medications Medication Sig calcium carbonate/vitamin D3 (CALCIUM+D ORAL) Take by mouth once daily. alendronate (FOSAMAX) 70 mg tablet Take 1 tablet by mouth one time a week. Take with a full glass of water, on an empty stomach; do NOT lie down for 30minutes. dabigatran etexilate (PRADAXA) 150 mg Take 1 capsule by mouth two times a day. metoprolol tartrate 75 mg tab Take 1 tablet by mouth every 12 hours. traZODone (DESYREL) 50 mg tablet Take 1 tablet by mouth daily at bedtime. amLODIPine (NORVASC) 10 mg tablet Take 1 tablet by mouth once daily. busPIRone (BUSPAR) 5 mg tablet Take 1 tablet by mouth two times a day. rosuvastatin (CRESTOR) 20 mg tablet Take 1 tablet by mouth daily at bedtime. colchicine 0.6 mg tablet Take 1 tablet by mouth once daily. famotidine (PEPCID) 20 mg tablet Take 20 mg by mouth two times a day. lisinopril (ZESTRIL) 5 mg tablet Take 1 tablet by mouth every 12 hours. diphenhydrAMINE (BENADRYL) 25 mg capsule Take 25 mg by mouth every 6 hours as needed. aspirin, enteric coated (ASPIRIN, ENTERIC COATED) 81 mg EC tablet Take 1 tablet by mouth once daily. No current facility-administered medications for this visit. Review of Systems Constitutional: Negative for activity change and fever. Respiratory: Negative for apnea, cough, chest tightness, shortness of breath, wheezing and stridor. Cardiovascular: Negative for chest pain, palpitations and leg swelling. Gastrointestinal: Negative for abdominal distention, diarrhea and vomiting. Musculoskeletal: Negative for joint swelling, neck pain and neck stiffness. Skin: Negative for color change, pallor and rash. Neurological: Negative for dizziness, syncope, weakness, light-headedness and numbness. Hematological: Does not bruise/bleed easily. Psychiatric/Behavioral: Negative for agitation, behavioral problems and confusion. The patient is not nervous/anxious. All other systems reviewed and are negative. PHYSICAL EXAMINATION: 06/13/25 1400 BP: 128/70 BP Site: Left Arm BP Position: Sitting Pulse: (!) 55 Weight: 73 kg (161 lb) Height: 152.4 cm (5') Last 3 Encounter BP Readings: Date: BP: 12/25/2024 118/66 09/02/2024 114/66 08/16/2024 138/71 Last 3 Encounter Pulse Readings: Date: Pulse: 12/25/2024 51 09/02/2024 57 08/16/2024 64 Last 3 Encounter Wt Readings: Date: Wt: 12/25/2024 68.9 kg (151 lb 14.4 oz) 09/02/2024 71 kg (156 lb 9.6 oz) 08/16/2024 75.6 kg (166 lb 10.7 oz) Potassium (mmol/L) Date Value 12/25/2024 4.6 12/11/2012 4.0 Sodium (mmol/L) Date Value 12/25/2024 142 12/11/2012 143 Magnesium (mg/dL) Date Value 08/19/2024 2.1 Creatinine (mg/dL) Date Value 12/25/2024 0.92 12/11/2012 0.72 BUN (mg/dL) Date Value 12/25/2024 12 12/11/2012 18 Glucose (mg/dL) Date Value 12/25/2024 123 12/11/2012 98 TSH (mIU/L) Date Value 08/16/2024 2.251 NT Pro BNP (pg/mL) Date Value 08/16/2024 1,895 Physical Exam Vitals and nursing note reviewed. Constitutional: General: She is not in acute distress. Appearance: Normal appearance. She is not toxic-appearing. HENT: Head: Normocephalic and atraumatic. Nose: Nose normal. Mouth/Throat: Mouth: Mucous membranes are moist. Neck: Vascular: No carotid bruit. Cardiovascular: Rate and Rhythm: Regular rhythm. Bradycardia present. Pulses: Normal pulses. Heart sounds: Normal heart sounds. No murmur heard. No friction rub. No gallop. Pulmonary: Effort: Pulmonary effort is normal. No respiratory distress. Breath sounds: Normal breath sounds. No stridor. No wheezing, rhonchi or rales. Chest: Chest wall: No tenderness. Abdominal: General: Abdomen is flat. There is no distension. Palpations: Abdomen is soft. There is no mass. Tenderness: There is no abdominal tenderness. Musculoskeletal: General: No swelling. Cervical back: Normal range of motion. No muscular tenderness. Right lower leg: No edema. Left lower leg: No edema. Skin: General: Skin is warm and dry. Capillary Refill: Capillary refill takes less than 2 seconds. Coloration: Skin is not jaundiced or pale. Findings: No bruising or rash. Neurological: General: No focal deficit present. Mental Status: She is alert and oriented to person, place, and time. Mental status is at baseline. Motor: No weakness. Gait: Gait normal. Psychiatric: Mood and Affect: Mood normal. Behavior: Behavior normal. Thought Content: Thought content normal. Judgment: Judgment normal. Diagnostic results: EKG: Sinus bradycardia, 55 bpm ASSESSMENT/PLAN: 1. Benign hypertension - ICD9: 401.1, ICD10: I10 (primary diagnosis) Target BP 130/80 or less. The pt is on chronic medications. Blood pressure controlled on current medications. 2. Coronary artery vasospasm - ICD9: 413.1, ICD10: I20.1 Patient has known coronary artery vasospasm. No obstructive coronary artery disease by cardiac cath in 2001. The patient is on metoprolol 75 mg twice daily. She is not complaining of chest pain. 3. Mixed hyperlipidemia - ICD9: 272.2, ICD10: E78.2 Patient is on Crestor 20 mg daily. Managed by primary care physician. 4. Atypical atrial flutter (HCC) - ICD9: 427.32, ICD10: I48.4 Patient had documentation of atypical atrial flutter in July 2024. She is maintaining sinus rhythm in the absence of any direct antiarrhythmic medications. She is presently on metoprolol 75 mg twice daily. We will plan to continue same medications and monitor for recurrent atrial flutter. 5. correction current use of anticoagulant - ICD9: V58.61, ICD10: Z79.01 Patient is on Pradaxa 150 mg twice daily. The pt is not complaining of any signs and symptoms of bleeding. The patient was instructed to call with any problems. documented in this encounter [facility] 05-14-2025 Miscellaneous Notes Patient calls requesting refill: Requested Prescriptions Requested Prescriptions Pending Prescriptions Disp Refills dabigatran etexilate (PRADAXA) 150 mg 60 capsule 0 Sig: Take 1 capsule by mouth two times a day. @RXAUTHPROV@ Date of last visit: 08/16/2024 Phone #: [phone] (home) The patient's preferred pharmacy has been captured for this encounter? yes Tricia Elizondo MA May 14, 2025 9:50 AM documented in this encounter [facility] 05-14-2025 Telephone encounter Note Patient calls requesting refill: Requested Prescriptions Requested Prescriptions Pending Prescriptions Disp Refills dabigatran etexilate (PRADAXA) 150 mg 60 capsule 0 Sig: Take 1 capsule by mouth two times a day. @RXAUTHPROV@ Date of last visit: 08/16/2024 Phone #: [phone] (home) The patient's preferred pharmacy has been captured for this encounter? yes Tricia Elizondo MA May 14, 2025 9:50 AM [facility] 05-13-2025 Telephone encounter Note Patient has been identified by name and date of : yes Patient phones for refill(s): Requested Prescriptions Pending Prescriptions Disp Refills alendronate (FOSAMAX) 70 mg tablet 12 tablet 3 Sig: Take 1 tablet by mouth one time a week. Take with a full glass of water, on an empty stomach; do NOT lie down for 30minutes. Date of last office visit in primary care: 12/25/2024 Date of next office visit in primary care: 06/24/2025 Please advise. Thank you. Daphne Barnett MA. [facility] 05-13-2025 Miscellaneous Notes Patient has been identified by name and date of : yes Patient phones for refill(s): Requested Prescriptions Pending Prescriptions Disp Refills alendronate (FOSAMAX) 70 mg tablet 12 tablet 3 Sig: Take 1 tablet by mouth one time a week. Take with a full glass of water, on an empty stomach; do NOT lie down for 30minutes. Date of last office visit in primary care: 12/25/2024 Date of next office visit in primary care: 06/24/2025 Please advise. Thank you. Daphne Barnett MA. documented in this encounter [facility] 05-13-2025 Telephone encounter Note Patient has been identified by name and date of : yes Patient phones for refill(s): Requested Prescriptions Pending Prescriptions Disp Refills metoprolol tartrate 75 mg tab 60 tablet 4 Sig: Take 1 tablet by mouth every 12 hours. Date of last office visit in primary care: 12/25/2024 Date of next office visit in primary care: 05/10/2025 Please advise. Thank you. Daphne Barnett MA. [facility] 05-13-2025 Miscellaneous Notes Patient has been identified by name and date of : yes Patient phones for refill(s): Requested Prescriptions Pending Prescriptions Disp Refills metoprolol tartrate 75 mg tab 60 tablet 4 Sig: Take 1 tablet by mouth every 12 hours. Date of last office visit in primary care: 12/25/2024 Date of next office visit in primary care: 05/10/2025 Please advise. Thank you. Daphne Barnett MA. documented in this encounter [facility] 05-13-2025 Telephone encounter Note Prescription Refill Information The patient has been identified by name and date of : Yes Caregiver verified no other encounters exist for this prescription request: Yes Caregiver confirmed with patient/requestor that no other refills are due, in the near future, with this provider at this time: Yes The last office visit in the department: 12/25/24 Does the patient have a future office visit with this provider/department: Yes Requested Prescriptions Pending Prescriptions Disp Refills traZODone (DESYREL) 50 mg tablet 90 tablet 1 Sig: Take 1 tablet by mouth daily at bedtime. Rosmery Burgos LPN May 13, 2025 3:03 PM [facility] 05-13-2025 Miscellaneous Notes Prescription Refill Information The patient has been identified by name and date of : Yes Caregiver verified no other encounters exist for this prescription request: Yes Caregiver confirmed with patient/requestor that no other refills are due, in the near future, with this provider at this time: Yes The last office visit in the department: 12/25/24 Does the patient have a future office visit with this provider/department: Yes Requested Prescriptions Pending Prescriptions Disp Refills traZODone (DESYREL) 50 mg tablet 90 tablet 1 Sig: Take 1 tablet by mouth daily at bedtime. Rosmery Burgos LPN May 13, 2025 3:03 PM documented in this encounter [facility] 05-12-2025 Telephone encounter Note Patient calls requesting refill: Requested Prescriptions Requested Prescriptions Refused Prescriptions Disp Refills dabigatran etexilate (PRADAXA) 150 mg 60 capsule 5 Sig: Take 1 capsule by mouth two times a day. colchicine 0.6 mg tablet 30 tablet 5 Sig: Take 1 tablet by mouth once daily. @RXAUTHPROV@ Date of last visit: Never been seen in the office. Phone #: [phone] (home) The patient's preferred pharmacy has been captured for this encounter? yes Clotilde Lopez MA May 12, 2025 8:23 AM [facility] 05-12-2025 Miscellaneous Notes Patient calls requesting refill: Requested Prescriptions Requested Prescriptions Refused Prescriptions Disp Refills dabigatran etexilate (PRADAXA) 150 mg 60 capsule 5 Sig: Take 1 capsule by mouth two times a day. colchicine 0.6 mg tablet 30 tablet 5 Sig: Take 1 tablet by mouth once daily. @RXAUTHPROV@ Date of last visit: Never been seen in the office. Phone #: [phone] (home) The patient's preferred pharmacy has been captured for this encounter? yes Clotilde Lopez MA May 12, 2025 8:23 AM documented in this encounter [facility] 03-21-2025 Telephone encounter Note Prescription Refill Information The patient has been identified by name and date of : Yes Caregiver verified no other encounters exist for this prescription request: Yes Caregiver confirmed with patient/requestor that no other refills are due, in the near future, with this provider at this time: Yes The last office visit in the department: 12/25/24 Does the patient have a future office visit with this provider/department: Yes, 06/24/25 Requested Prescriptions Pending Prescriptions Disp Refills amLODIPine (NORVASC) 10 mg tablet 90 tablet 1 Sig: Take 1 tablet by mouth once daily. busPIRone (BUSPAR) 5 mg tablet 180 tablet 1 Sig: Take 1 tablet by mouth two times a day. rosuvastatin (CRESTOR) 20 mg tablet 90 tablet 1 Sig: Take 1 tablet by mouth daily at bedtime. Genaro Mcintyre LPN March 21, 2025 3:33 PM [facility] 03-21-2025 Miscellaneous Notes Prescription Refill Information The patient has been identified by name and date of : Yes Caregiver verified no other encounters exist for this prescription request: Yes Caregiver confirmed with patient/requestor that no other refills are due, in the near future, with this provider at this time: Yes The last office visit in the department: 12/25/24 Does the patient have a future office visit with this provider/department: Yes, 06/24/25 Requested Prescriptions Pending Prescriptions Disp Refills amLODIPine (NORVASC) 10 mg tablet 90 tablet 1 Sig: Take 1 tablet by mouth once daily. busPIRone (BUSPAR) 5 mg tablet 180 tablet 1 Sig: Take 1 tablet by mouth two times a day. rosuvastatin (CRESTOR) 20 mg tablet 90 tablet 1 Sig: Take 1 tablet by mouth daily at bedtime. Genaro Mcintyre LPN March 21, 2025 3:33 PM documented in this encounter [facility] 02-25-2025 Note Patient Outreach (FA MPWS) PRAVINJESSICA RAPHAEL ([id number]) 1950 F Date Time Provider Department 02/25/25 CECI VERA During your visit today, we recorded the following information about you: Allergies As of Date: 02/25/2025 Noted Allergy Reaction LIPITOR (ATORVASTATIN) 03/13/2023 4 - Hives MACROBID (NITROFURANTOIN MONOHYD/*08/17/2024 5 - Intolerance Comments: Patient had dizziness, nausea, ventricular tachycardia while taking this med Date Reviewed: 12/25/2024 Reviewed by: Elisabeth Solares LPN - Fully Assessed Visit Diagnosis:Encounter for screening mammogram for breast cancer [Z12.31] Order(s):[facility] SCREENING W CLARA [0402110] Order #: [id number] FUTURE Prescriptions as of 03/28/2025 - amLODIPine (NORVASC) 10 mg tablet Take 1 tablet by mouth once daily. - busPIRone (BUSPAR) 5 mg tablet Take 1 tablet by mouth two times a day. - rosuvastatin (CRESTOR) 20 mg tablet Take 1 tablet by mouth daily at bedtime. - traZODone (DESYREL) 50 mg tablet Take 1 tablet by mouth daily at bedtime. - metoprolol tartrate 75 mg tab Take 1 tablet by mouth every 12 hours. - colchicine 0.6 mg tablet Take 1 tablet by mouth once daily. - dabigatran etexilate (PRADAXA) 150 mg Take 1 capsule by mouth twice daily - famotidine (PEPCID) 20 mg tablet Take 20 mg by mouth two times a day. - lisinopril (ZESTRIL) 5 mg tablet Take 1 tablet by mouth every 12 hours. - alendronate (FOSAMAX) 70 mg tablet Take 1 tablet by mouth one time a week. Take with a full glass of water, on an empty stomach; do NOT lie down for 30minutes. - diphenhydrAMINE (BENADRYL) 25 mg capsule Take 25 mg by mouth every 6 hours as needed. - aspirin, enteric coated (ASPIRIN, ENTERIC COATED) 81 mg EC tablet Take 1 tablet by mouth once daily. Meds Comments as of 12/23/2017: Only taking Tessalon perle And Mucinex (last dose this morning) 2-3 S. Joe Problem List As Of Date 02/25/2025 Noted Resolved ADJUSTMENT DISORDER WITH DEPRESSED MOOD [F43.21] HYPERLIPIDEMIA NEC/NOS [E78.5] Other and unspecified angina pectoris [I20.9] 08/01/2007 03/14/2023 TM JOINT DISORDER, UNSPEC [M26.609] 06/12/2008 ROTATOR CUFF SYND NOS [M71.9, M67.919] 06/27/2009 Major Depressive Disorder [F32.9] 03/31/2010 Essential Hypertension, Benign [I10] 06/07/2010 Obesity [E66.9] 12/11/2012 History of melanoma [Z85.820] 10/15/2014 Right hemiparesis (HCC) [G81.91] 03/14/2023 Cerebrovascular accident (CVA) (HCC) [I63.9] 04/07/2023 Anxiety [F41.9] 05/15/2023 Overweight (BMI 25.0-29.9) [E66.3] 05/15/2023 Paroxysmal ventricular tachycardia (HCC) [I47.2*08/16/2024 Obesity, Class I, BMI 30-34.9 [E66.811] 08/16/2024 Encounter Status:Closed by Claro, PRODUSER on 03/28/25 [facility] 02-15-2025 Telephone encounter Note The following approved medication requests have been transmitted electronically. Requested Prescriptions Signed Prescriptions Disp Refills traZODone (DESYREL) 50 mg tablet 90 tablet 1 Sig: Take 1 tablet by mouth daily at bedtime. Authorizing Provider: SALAZAR HERNANDEZ MD [facility] 02-15-2025 Miscellaneous Notes The following approved medication requests have been transmitted electronically. Requested Prescriptions Signed Prescriptions Disp Refills traZODone (DESYREL) 50 mg tablet 90 tablet 1 Sig: Take 1 tablet by mouth daily at bedtime. Authorizing Provider: SALAZAR HERNANDEZ MD Prescription Refill Information The patient has been identified by name and date of : Yes Caregiver verified no other encounters exist for this prescription request: Yes Caregiver confirmed with patient/requestor that no other refills are due, in the near future, with this provider at this time: Yes The last office visit in the department: 12/25/24 Does the patient have a future office visit with this provider/department: Yes, 06/24/25 Requested Prescriptions Pending Prescriptions Disp Refills traZODone (DESYREL) 50 mg tablet 90 tablet 1 Sig: Take 1 tablet by mouth daily at bedtime. Genaro Mcintyre LPN February 15, 2025 8:46 AM documented in this encounter [facility] 02-15-2025 Telephone encounter Note Prescription Refill Information The patient has been identified by name and date of : Yes Caregiver verified no other encounters exist for this prescription request: Yes Caregiver confirmed with patient/requestor that no other refills are due, in the near future, with this provider at this time: Yes The last office visit in the department: 12/25/24 Does the patient have a future office visit with this provider/department: Yes, 06/24/25 Requested Prescriptions Pending Prescriptions Disp Refills traZODone (DESYREL) 50 mg tablet 90 tablet 1 Sig: Take 1 tablet by mouth daily at bedtime. Genaro Mcintyre LPN February 15, 2025 8:46 AM [facility] 01-14-2025 History of Presen t illness Narrative Radiology Service Progress Note PATIENT NAME: Jessica Lazcano DATE OF SERVICE: January 14, 2025 TIME: 10:59 AM PATIENT IDENTITY VERIFICATION COMPLETED USING TWO (2) IDENTIFIERS: Name and Date of confirmed by patient verbally. FALL SCREENING: Has the patient had 2 falls in the last year or 1 fall with injury or currently using an Ambulatory Assistive Device (Walker, Cane, Wheelchair, Crutches, etc.)? Yes, Patient High Risk for Falls What interventions were put in place to prevent falls during this visit? Offered Assistance with Transfers/Clothing, Instructed Patient to Remain Seated (Not on Exam Table) Until Exam, and Increased Observations by Caregivers PATIENT GENDER DATA: Assigned female at . status: : No status: NO. PATIENT RELEVANT IMPLANT DATA REVIEWED: Not Applicable PATIENT PRESENTS WITH AN IMPLANTABLE OR ATTACHED CLINICAL MEDICAL ASSISTANT: No RADIOLOGY DEPARTMENT: Ultrasound PERIPHERAL IV DATA: Not applicable SIGNED BY: Miya Sanders RDMS January 14, 2025 10:59 AM documented in this encounter [facility] 01-14-2025 Note HNO ID: [id number] Author: MIYA SANDERS RDMS Service: ? Author Type: Circular Sawyer Helper Type: Progress Notes Filed: 01/14/2025 11:00 Note Text: Radiology Service Progress Note PATIENT NAME: Jessica Lazcano DATE OF SERVICE: January 14, 2025 TIME: 10:59 AM PATIENT IDENTITY VERIFICATION COMPLETED USING TWO (2) IDENTIFIERS: Name and Date of confirmed by patient verbally. FALL SCREENING: Has the patient had 2 falls in the last year or 1 fall with injury or currently using an Ambulatory Assistive Device (Walker, Cane, Wheelchair, Crutches, etc.)? Yes, Patient High Risk for Falls What interventions were put in place to prevent falls during this visit? Offered Assistance with Transfers/Clothing, Instructed Patient to Remain Seated (Not on Exam Table) Until Exam, and Increased Observations by Caregivers PATIENT GENDER DATA: Assigned female at . status: : No status: NO. PATIENT RELEVANT IMPLANT DATA REVIEWED: Not Applicable PATIENT PRESENTS WITH AN IMPLANTABLE OR ATTACHED CLINICAL MEDICAL ASSISTANT: No RADIOLOGY DEPARTMENT: Ultrasound PERIPHERAL IV DATA: Not applicable SIGNED BY: Miya Sanders RDMS January 14, 2025 10:59 AM [facility] 01-08-2025 Telephone encounter Note Patient notified with results. Patient verbalizes understanding. Transferred pt to reading efficiency course director to get US scheduled. Mary Sen LPN [facility] 01-08-2025 Miscellaneous Notes Patient notified with results. Patient verbalizes understanding. Transferred pt to reading efficiency course director to get US scheduled. Mary Sen LPN CT shows resolution of consolidation in left lower lobe of lung. Mentions a thyroid nodule. I would like her to have ultrasound of thyroid to evaluate further. Radha Zamora APRN.KANG documented in this encounter [facility] 01-08-[address] shows resolution of consolidation in left lower lobe of lung. Mentions a thyroid nodule. I would like her to have ultrasound of thyroid to evaluate further. Radha Zamora APRN.KANG [facility] 01-03-2025 History of Presen t illness Narrative Radiology Service Progress Note PATIENT NAME: Jessica Lazcano DATE OF SERVICE: January 03, 2025 TIME: 3:58 PM PATIENT IDENTITY VERIFICATION COMPLETED USING TWO (2) IDENTIFIERS: Name and Date of confirmed by patient verbally. FALL SCREENING: Has the patient had 2 falls in the last year or 1 fall with injury or currently using an Ambulatory Assistive Device (Walker, Cane, Wheelchair, Crutches, etc.)? No PATIENT GENDER DATA: Assigned female at . status: : No status: NO. PATIENT RELEVANT IMPLANT DATA REVIEWED: Yes PATIENT PRESENTS WITH AN IMPLANTABLE OR ATTACHED CLINICAL MEDICAL ASSISTANT: No RADIOLOGY DEPARTMENT: CT; Exam(s) Completed: Chest PERIPHERAL IV DATA: Not applicable SIGNED BY: RT Marii([place]) January 03, 2025 3:58 PM documented in this encounter [facility] 01-03-2025 Note HNO ID: [id number] Author: YVONNE OWUSU RT(R) Service: ? Author Type: Circular Sawyer Helper Type: Progress Notes Filed: 01/03/2025 15:58 Note Text: Radiology Service Progress Note PATIENT NAME: Jessica Lazcano DATE OF SERVICE: January 03, 2025 TIME: 3:58 PM PATIENT IDENTITY VERIFICATION COMPLETED USING TWO (2) IDENTIFIERS: Name and Date of confirmed by patient verbally. FALL SCREENING: Has the patient had 2 falls in the last year or 1 fall with injury or currently using an Ambulatory Assistive Device (Walker, Cane, Wheelchair, Crutches, etc.)? No PATIENT GENDER DATA: Assigned female at . status: : No status: NO. PATIENT RELEVANT IMPLANT DATA REVIEWED: Yes PATIENT PRESENTS WITH AN IMPLANTABLE OR ATTACHED CLINICAL MEDICAL ASSISTANT: No RADIOLOGY DEPARTMENT: CT; Exam(s) Completed: Chest PERIPHERAL IV DATA: Not applicable SIGNED BY: RT Marii([place]) January 03, 2025 3:58 PM [facility] 12-25-2024 Instructions Radha Zamora APRN.CNP - 12/25/2024 11:32 AM EST Make appointment to get ultrasound of carotids Check with insurance about home sleep study Make sure to complete heart monitor documented in this encounter [facility] 12-25-2024 Note HNO ID: [id number] Author: RADHA ZAMORA APRN.CNP Service: ? Author Type: Nurse Practitioner Type: Progress Notes Filed: 12/25/2024 12:38 Note Text: 12/25/2024 Patient presents with: F/U 6 months SUBJECTIVE: This is a 73 year old, accompanied by daughter, that is here today for Above Complaints. HTN: Patient is compliant with meds Yes Monitors bp at home: occasionally . Denies side effects: Yes. Chest pain: No. Dyspnea: No. Edema: very little . Palpitations: No. Syncope: No. Headache: No. Dizziness: No. HX of CVA: No recurrent symptoms. Taking medications as prescribed without side effects. Walking with cane for some residual right sided weakness but does note improvement in shoulder mobility. Ambulates with cane. No falls Needs letter for change of mail box to same side of road. Reports her mailbox sits on a curve. 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 Patient reports trucks come around curve quickly and she is afraid she will not be able to move quick enough if necessary. Reports she almost got it not too long ago as there is really no area around she can step to the side if traffic is oncoming Was seen in hospital in August and was to have an outpatient heart monitor due to atrial flutter. Has not competed as of yet. Taking Praxada duet to Eliquis was too expensive. Has been in contact with cardiology regarding the heart monitor. Has not completed HSA yet. Patient unsure if insurance will cover.Admits to daytime drowsiness Did not complete repeat CT of chest recommended. Hospitalized in August for pneumonia and it was recommend she repeat the CT in 8 weeks. Denies fevers, chills, SOB, dyspnea, wheezing or cough PAST MEDICAL HISTORY Diagnosis Date Adjustment disorder with depressed mood Anxiety Atypical atrial flutter (HCC) 08/16/2024 By EKG from [facility] at 188 bpm with intermittent right bundle branch aberrancy. 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 No obstructive disease at that time. Treated chronically with amlodipine 10 mg daily. CVA (cerebral vascular accident) ([facility]) 02/2023 H/O cardiac catheterization 2001 At [facility]. No evidence of significant coronary disease. Thought to have coronary artery vasospasm. H/O echocardiogram 06/14/2010 Exercise stress echo at [facility]. EF 60%. Trivial MR and TR. No evidence of ischemia after 6 minutes of exercise and a heart rate of 153 bpm (93% of age-predicted maximum). History of endometriosis History of melanoma 10/15/2014 HLD (hyperlipidemia) HTN (hypertension) Hx of echocardiogram 02/2023 Transthoracic echocardiogram at [facility]. Normal heart function per patient report. Osteoporosis 06/12/2023 Other and unspecified hyperlipidemia Overweight (BMI 25.0-29.9) Right sided weakness ALLERGIES Lipitor [Atorvastatin] and Macrobid [Nitrofurantoin Monohyd/M-Cryst] MEDICATIONS Current Outpatient Medications Medication Sig metoprolol tartrate 75 mg tab Take 1 tablet by mouth every 12 hours. colchicine 0.6 mg tablet Take 1 tablet by mouth once daily. dabigatran etexilate (PRADAXA) 150 mg Take 1 capsule by mouth twice daily rosuvastatin (CRESTOR) 20 mg tablet Take 1 tablet by mouth daily at bedtime. amLODIPine (NORVASC) 10 mg tablet Take 1 tablet by mouth once daily. busPIRone (BUSPAR) 5 mg tablet Take 1 tablet by mouth two times a day. famotidine (PEPCID) 20 mg tablet Take 20 mg by mouth two times a day. lisinopril (ZESTRIL) 5 mg tablet Take 1 tablet by mouth every 12 hours. traZODone (DESYREL) 50 mg tablet Take 1 tablet by mouth daily at bedtime. alendronate (FOSAMAX) 70 mg tablet Take 1 tablet by mouth one time a week. Take with a full glass of water, on an empty stomach; do NOT lie down for 30minutes. diphenhydrAMINE (BENADRYL) 25 mg capsule Take 25 mg by mouth every 6 hours as needed. aspirin, enteric coated (ASPIRIN, ENTERIC COATED) 81 mg EC tablet Take 1 tablet by mouth once daily. No current facility-administered medications for this visit. Medications and allergies reviewed by this provider. SOCIAL HISTORY Social History Tobacco Use Smoking status: Never Smokeless tobacco: Never Substance Use Topics Alcohol use: Not Currently Comment: less than monthly; never heavy or daily drinker. Drug use: Never REVIEW OF SYSTEMS All other reviewed and negative other than HPI. OBJECTIVE: BP 118/66 Pulse (!) 51 Resp 18 Wt 68.9 kg (151 lb 14.4 oz) SpO2 99% BMI 24.52 kg/m? . Vital signs reviewed by this provider. APPEARANCE Well appearing, alert, in no acute distress, well-hydrated, well nourished. EYES conjunctiva and sclera normal. HEART RRR with normal S1 and S2, no murmurs, no gallops, no JVD korin (more content not included)... [facility] 12-25-2024 History of Presen t illness Narrative 12/25/2024 Patient presents with: F/U 6 months SUBJECTIVE: This is a 73 year old, accompanied by daughter, that is here today for Above Complaints. HTN: Patient is compliant with meds Yes Monitors bp at home: occasionally . Denies side effects: Yes. Chest pain: No. Dyspnea: No. Edema: very little . Palpitations: No. Syncope: No. Headache: No. Dizziness: No. HX of CVA: No recurrent symptoms. Taking medications as prescribed without side effects. Walking with cane for some residual right sided weakness but does note improvement in shoulder mobility. Ambulates with cane. No falls Needs letter for change of mail box to same side of road. Reports her mailbox sits on a curve. 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 Patient reports trucks come around curve quickly and she is afraid she will not be able to move quick enough if necessary. Reports she almost got it not too long ago as there is really no area around she can step to the side if traffic is oncoming Was seen in hospital in August and was to have an outpatient heart monitor due to atrial flutter. Has not competed as of yet. Taking Praxada duet to Eliquis was too expensive. Has been in contact with cardiology regarding the heart monitor. Has not completed HSA yet. Patient unsure if insurance will cover.Admits to daytime drowsiness Did not complete repeat CT of chest recommended. Hospitalized in August for pneumonia and it was recommend she repeat the CT in 8 weeks. Denies fevers, chills, SOB, dyspnea, wheezing or cough PAST MEDICAL HISTORY Diagnosis Date Adjustment disorder with depressed mood Anxiety Atypical atrial flutter (HCC) 08/16/2024 By EKG from [facility] at 188 bpm with intermittent right bundle branch aberrancy. BMI 32.0-32.9,adult 08/17/2024 Carotid stenosis, bilateral 05/30/2023 40-59% Coronary artery vasospasm (HCC) 2001 By cardiac catheterization at [facility] 2001. No obstructive disease at that time. Treated chronically with amlodipine 10 mg daily. CVA (cerebral vascular accident) (HCC) 02/2023 H/O cardiac catheterization 2001 At [facility]. No evidence of significant coronary disease. Thought to have coronary artery vasospasm. H/O echocardiogram 06/14/2010 Exercise stress echo at [facility]. EF 60%. Trivial MR and TR. No evidence of ischemia after 6 minutes of exercise and a heart rate of 153 bpm (93% of age-predicted maximum). History of endometriosis History of melanoma 10/15/2014 HLD (hyperlipidemia) HTN (hypertension) Hx of echocardiogram 02/2023 Transthoracic echocardiogram at [facility]. Normal heart function per patient report. Osteoporosis 06/12/2023 Other and unspecified hyperlipidemia Overweight (BMI 25.0-29.9) Right sided weakness ALLERGIES Lipitor [Atorvastatin] and Macrobid [Nitrofurantoin Monohyd/M-Cryst] MEDICATIONS Current Outpatient Medications Medication Sig metoprolol tartrate 75 mg tab Take 1 tablet by mouth every 12 hours. colchicine 0.6 mg tablet Take 1 tablet by mouth once daily. dabigatran etexilate (PRADAXA) 150 mg Take 1 capsule by mouth twice daily rosuvastatin (CRESTOR) 20 mg tablet Take 1 tablet by mouth daily at bedtime. amLODIPine (NORVASC) 10 mg tablet Take 1 tablet by mouth once daily. busPIRone (BUSPAR) 5 mg tablet Take 1 tablet by mouth two times a day. famotidine (PEPCID) 20 mg tablet Take 20 mg by mouth two times a day. lisinopril (ZESTRIL) 5 mg tablet Take 1 tablet by mouth every 12 hours. traZODone (DESYREL) 50 mg tablet Take 1 tablet by mouth daily at bedtime. alendronate (FOSAMAX) 70 mg tablet Take 1 tablet by mouth one time a week. Take with a full glass of water, on an empty stomach; do NOT lie down for 30minutes. diphenhydrAMINE (BENADRYL) 25 mg capsule Take 25 mg by mouth every 6 hours as needed. aspirin, enteric coated (ASPIRIN, ENTERIC COATED) 81 mg EC tablet Take 1 tablet by mouth once daily. No current facility-administered medications for this visit. Medications and allergies reviewed by this provider. SOCIAL HISTORY Social History Tobacco Use Smoking status: Never Smokeless tobacco: Never Substance Use Topics Alcohol use: Not Currently Comment: less than monthly; never heavy or daily drinker. Drug use: Never REVIEW OF SYSTEMS All other reviewed and negative other than HPI. OBJECTIVE: BP 118/66 Pulse (!) 51 Resp 18 Wt 68.9 kg (151 lb 14.4 oz) SpO2 99% BMI 24.52 kg/m . Vital signs reviewed by this provider. APPEARANCE Well appearing, alert, in no acute distress, well-hydrated, well nourished. EYES conjunctiva and sclera normal. HEART RRR with normal S1 and S2, no murmurs, no gallops, no JVD appreciated LUNG clear to auscultation. No wheezes, rhonchi or rales EXTREMITIES Extremities normal, No deformities, No skin discoloration, and No edema SKIN Skin color, texture, turgor normal, no suspicious rashes or lesions to exposed skin Latest Ref Rng 08/18/2024 WBC 3.70 - 11.00 k/uL 12.65 (H) RBC 3.90 - 5.20 m/uL 3.60 (L) Hemoglobin 11.5 - 15.5 g/dL 10.6 (L) Hematocrit 36.0 - 46.0 % 30.6 (L) MCV 80.0 - 100.0 fL 85.0 MCH 26.0 - 34.0 pg 29.4 MCHC 30.5 - 36.0 g/dL 34.6 RDW-CV 11.5 - 15.0 % 12.4 Platelet Count 150 - 400 k/uL 273 MPV 9.0 - 12.7 fL 10.3 Absolute nRBC <0.01 k/uL <0.01 Latest Ref Rng 08/19/2024 Protein, Total 6.0 - 8.5 g/dL 6.4 Albumin 3.2 - 5.0 g/dL 3.0 (L) Calcium 8.5 - 10.5 mg/dL 8.8 Bilirubin, Total 0.2 - 1.0 mg/dL 0.3 Alkaline Phosphatase 45 - 117 U/L 40 (L) AST 8 - 34 U/L 33 ALT 13 - 61 U/L 24 Glucose 70 - 100 mg/dL 102 (H) BUN 7 - 26 mg/dL 9 Creatinine 0.51 - 0.95 mg/dL 0.73 Sodium 136 - 145 mmol/L 137 Potassium 3.5 - 5.1 mmol/L 3.9 Chloride 98 - 107 mmol/L 106 CO2 21 - 32 mmol/L 24 Anion Gap 5 - 16 mmol/L 7 eGFR >=60 mL/min/1.73m 88 Latest Ref Rng 08/17/2024 Cholesterol, Total 0 - 199 mg/dL 111 Triglyceride 30 - 149 mg/dL 77 HDL Cholesterol >40 mg/dL 40 (L) Non HDL Cholesterol <130 mg/dL 71 Fasting Time hrs 10 VLDL Cholesterol <30 mg/dL 15 TC:HDL Ratio <5.10 2.78 LDL Cholesterol 0 - 129 mg/dL 56 LDL:HDL Ratio <2.54 1.40 Hepatitis C Screening Never done Colorectal Cancer Screening due on 04/11/2014 Mammogram Screening due on 05/18/2024 Advance Directive Discussion due on 11/20/2024 Influenza Vaccine(1) due on 05/19/2025 DTaP,Tdap,Td Vaccine(2 - Td or Tdap) due on 06/24/2025 Shingrix Vaccine(1 of 2) due on 06/24/2025 Covid-19 Vaccine(1 - season) due on 12/25/2025 Annual PCP Team Chronic Disease Visit due on 12/25/2025 BP Controlled (<130/80) due on 12/25/2025 Diabetes Screening due on 08/19/2027 RSV Vaccine(1 - 1-dose 75+ series) due on 2027 Lipid Screening due on 08/17/2029 Bone Density Screening Completed Pneumococcal Vaccine: 50+ Completed ASSESSMENT/PLAN: 1. Hypertension, essential - ICD9: 401.9, ICD10: I10 (primary diagnosis) - Controlled - Continue current medications - Recommend home blood pressure monitoring, to bring results to next visit - Encouraged sodium restriction, DASH or Mediterranean diet - Recommend regular aerobic exercise - Follow up in 6 months for hypertension visit - COMPREHENSIVE METABOLIC PANEL 2. Encounter for immunization - ICD9: V03.89, ICD10: Z23 - PNEUMOCOCCAL VACCINE, 20 VALENT (PREVNAR 20) 3. Anemia, unspecified type - ICD9: 285.9, ICD10: D64.9 - COMPLETE BLOOD COUNT AND DIFFERENTIAL 4. Cerebrovascular accident (CVA), unspecified mechanism (HCC) - ICD9: 434.91, ICD10: I63.9 - stable - continue current medications - letter provided for patient to have her mailbox relocated - reminded patient she has order for repeat carotid US, agreeable to scheduled 5. Abnormal CT scan of lung - ICD9: 793.19, ICD10: R91.8 - discussed with patient recommended she get repeat CT- agreeable to complete 6. Atrial flutter, unspecified type (HCC) - ICD9: 427.32, ICD10: I48.92 - continue current medications - needs to complete heart monitor and follow-up with cardiology 7. Hyperlipidemia, mixed - ICD9: 272.2, ICD10: E78.2 - Controlled - Continue current medications - Counseled on healthy diet and regular exercise - Follow up in 6 months, sooner should any other issues arise. 8. Daytime somnolence - ICD9: 780.54, ICD10: R40.0 - needs to check with insurance regarding coverage Radha Zamora APRN.CNP Prescription instructions reviewed with patient as applicable. Patient advised if symptoms do not improve or if symptoms worsen sooner, to contact their primary care physician. Potential red flag symptoms discussed with the patient. Reviewed appropriate action plan to take if red flag symptoms occur. Patient agreeable to treatment plan. Medical Decision Making: Problems: Moderate: 2+ stable chronic illnesses Data: Unique test(s) ordered: 2 Risk: Moderate: Moderate risk from testing/treatment Medical Decision Making Level: 4 - Moderate documented in this encounter [facility] 12-12-2024 Telephone encounter Note Spoke with patient, she still had the original monitor at her house. She had never opened the box. She had planned on putting it on this week because her family really was getting on her case about wearing it. I hung up and called [employer], they said to just have her send the original monitor back and I would need to re-enroll her in another monitor if that is what she wanted to do. I called the patient to let her know and had to leave a message for her to return the call. [facility] 12-12-2024 Miscellaneous Notes Spoke with patient, she still had the original monitor at her house. She had never opened the box. She had planned on putting it on this week because her family really was getting on her case about wearing it. I hung up and called [employer], they said to just have her send the original monitor back and I would need to re-enroll her in another monitor if that is what she wanted to do. I called the patient to let her know and had to leave a message for her to return the call. Left voicemail for patient to return call. We enrolled and mailed monitor to patient but there is no history or end of summary report on [employer]. So I just need to find out if she got the monitor, if she wore it, if she sent it back or what happened? documented in this encounter [facility] 12-11-2024 Telephone encounter Note Prescription Refill Information The patient has been identified by name and date of : Yes Caregiver verified no other encounters exist for this prescription request: Yes Caregiver confirmed with patient/requestor that no other refills are due, in the near future, with this provider at this time: Yes The last office visit in the department: 09/02/2024 Does the patient have a future office visit with this provider/department: Yes Requested Prescriptions Pending Prescriptions Disp Refills metoprolol tartrate 75 mg tab 60 tablet 4 Sig: Take 1 tablet by mouth every 12 hours. Elisabeth Solares LPN December 11, 2024 5:22 PM [facility] 12-11-2024 Miscellaneous Notes Prescription Refill Information The patient has been identified by name and date of : Yes Caregiver verified no other encounters exist for this prescription request: Yes Caregiver confirmed with patient/requestor that no other refills are due, in the near future, with this provider at this time: Yes The last office visit in the department: 09/02/2024 Does the patient have a future office visit with this provider/department: Yes Requested Prescriptions Pending Prescriptions Disp Refills metoprolol tartrate 75 mg tab 60 tablet 4 Sig: Take 1 tablet by mouth every 12 hours. Elisabeth Solares LPN December 11, 2024 5:22 PM documented in this encounter [facility] 12-09-2024 Telephone encounter Note Left voicemail for patient to return call. We enrolled and mailed monitor to patient but there is no history or end of summary report on [employer]. So I just need to find out if she got the monitor, if she wore it, if she sent it back or what happened? [facility] 11-05-2024 Telephone encounter Note Patient calls requesting refill: Requested Prescriptions Requested Prescriptions Pending Prescriptions Disp Refills dabigatran etexilate (PRADAXA) 150 mg [Pharmacy Med Name: Dabigatran Etexilate Mesylate 150 MG Oral Capsule] 60 capsule 5 Sig: Take 1 capsule by mouth twice daily @RXAUTHPROV@ Date of last visit: 08/18/24 Phone #: [phone] (home) The patient's preferred pharmacy has been captured for this encounter? yes Clotilde Lopez MA November 05, 2024 9:17 AM [facility] 11-05-2024 Miscellaneous Notes Patient calls requesting refill: Requested Prescriptions Requested Prescriptions Pending Prescriptions Disp Refills dabigatran etexilate (PRADAXA) 150 mg [Pharmacy Med Name: Dabigatran Etexilate Mesylate 150 MG Oral Capsule] 60 capsule 5 Sig: Take 1 capsule by mouth twice daily @RXAUTHPROV@ Date of last visit: 08/18/24 Phone #: [phone] (home) The patient's preferred pharmacy has been captured for this encounter? yes Clotilde Lopez MA November 05, 2024 9:17 AM documented in this encounter [facility] 10-03-2024 Telephone encounter Note Prescription Refill Information The patient has been identified by name and date of : Yes Caregiver verified no other encounters exist for this prescription request: Yes Caregiver confirmed with patient/requestor that no other refills are due, in the near future, with this provider at this time: Yes The last office visit in the department: 09/02/2024 Does the patient have a future office visit with this provider/department: Yes Requested Prescriptions Pending Prescriptions Disp Refills rosuvastatin (CRESTOR) 20 mg tablet 90 tablet 1 Sig: Take 1 tablet by mouth daily at bedtime. Francis Kirby MA October 03, 2024 11:16 AM [facility] 10-03-2024 Miscellaneous Notes Prescription Refill Information The patient has been identified by name and date of : Yes Caregiver verified no other encounters exist for this prescription request: Yes Caregiver confirmed with patient/requestor that no other refills are due, in the near future, with this provider at this time: Yes The last office visit in the department: 09/02/2024 Does the patient have a future office visit with this provider/department: Yes Requested Prescriptions Pending Prescriptions Disp Refills rosuvastatin (CRESTOR) 20 mg tablet 90 tablet 1 Sig: Take 1 tablet by mouth daily at bedtime. Francis Kirby MA October 03, 2024 11:16 AM documented in this encounter [facility] 09-30-2024 Telephone encounter Note Prescription Refill Information The patient has been identified by name and date of : Yes Caregiver verified no other encounters exist for this prescription request: Yes Caregiver confirmed with patient/requestor that no other refills are due, in the near future, with this provider at this time: No The last office visit in the department: 09/02/24 Does the patient have a future office visit with this provider/department: Yes Requested Prescriptions Pending Prescriptions Disp Refills busPIRone (BUSPAR) 5 mg tablet 180 tablet 1 Sig: Take 1 tablet by mouth two times a day. Ramandeep Hernandez MA September 30, 2024 12:40 PM [facility] 09-30-2024 Miscellaneous Notes Prescription Refill Information The patient has been identified by name and date of : Yes Caregiver verified no other encounters exist for this prescription request: Yes Caregiver confirmed with patient/requestor that no other refills are due, in the near future, with this provider at this time: No The last office visit in the department: 09/02/24 Does the patient have a future office visit with this provider/department: Yes Requested Prescriptions Pending Prescriptions Disp Refills busPIRone (BUSPAR) 5 mg tablet 180 tablet 1 Sig: Take 1 tablet by mouth two times a day. Ramandeep Hernandez MA September 30, 2024 12:40 PM documented in this encounter [facility] 09-30-2024 Telephone encounter Note Prescription Refill Information The patient has been identified by name and date of : Yes Caregiver verified no other encounters exist for this prescription request: Yes Caregiver confirmed with patient/requestor that no other refills are due, in the near future, with this provider at this time: No The last office visit in the department: 09/02/24 Does the patient have a future office visit with this provider/department: Yes Requested Prescriptions Pending Prescriptions Disp Refills amLODIPine (NORVASC) 10 mg tablet 90 tablet 1 Sig: Take 1 tablet by mouth once daily. Ramandeep Hernandez MA September 30, 2024 12:05 PM [facility] 09-30-2024 Miscellaneous Notes Prescription Refill Information The patient has been identified by name and date of : Yes Caregiver verified no other encounters exist for this prescription request: Yes Caregiver confirmed with patient/requestor that no other refills are due, in the near future, with this provider at this time: No The last office visit in the department: 09/02/24 Does the patient have a future office visit with this provider/department: Yes Requested Prescriptions Pending Prescriptions Disp Refills amLODIPine (NORVASC) 10 mg tablet 90 tablet 1 Sig: Take 1 tablet by mouth once daily. Ramandeep Hernandez MA September 30, 2024 12:05 PM documented in this encounter [facility] 09-17-2024 Telephone encounter Note Prescription Refill Information The patient has been identified by name and date of : Yes Caregiver verified no other encounters exist for this prescription request: Yes Caregiver confirmed with patient/requestor that no other refills are due, in the near future, with this provider at this time: Yes The last office visit in the department: 09/02/24 Does the patient have a future office visit with this provider/department: Yes, 12/25/24 Requested Prescriptions Pending Prescriptions Disp Refills metoprolol tartrate 75 mg tab 60 tablet 0 Sig: Take 1 tablet by mouth every 12 hours. Genaro Mcintyre LPN September 17, 2024 11:25 AM [facility] 09-17-2024 Miscellaneous Notes Prescription Refill Information The patient has been identified by name and date of : Yes Caregiver verified no other encounters exist for this prescription request: Yes Caregiver confirmed with patient/requestor that no other refills are due, in the near future, with this provider at this time: Yes The last office visit in the department: 09/02/24 Does the patient have a future office visit with this provider/department: Yes, 12/25/24 Requested Prescriptions Pending Prescriptions Disp Refills metoprolol tartrate 75 mg tab 60 tablet 0 Sig: Take 1 tablet by mouth every 12 hours. Genaro Mcintyre LPN September 17, 2024 11:25 AM documented in this encounter [facility] 09-17-2024 Telephone encounter Note Patient calls requesting refill: Requested Prescriptions Requested Prescriptions Pending Prescriptions Disp Refills colchicine 0.6 mg tablet 30 tablet 5 Sig: Take 1 tablet by mouth once daily. @RXAUTHPROV@ Date of last visit: 08/18/24 Patient was seen in the hospital. Phone #: [phone] (home) The patient's preferred pharmacy has been captured for this encounter? yes Clotilde Lopez MA September 17, 2024 8:24 AM [facility] 09-17-2024 Miscellaneous Notes Patient calls requesting refill: Requested Prescriptions Requested Prescriptions Pending Prescriptions Disp Refills colchicine 0.6 mg tablet 30 tablet 5 Sig: Take 1 tablet by mouth once daily. @RXAUTHPROV@ Date of last visit: 08/18/24 Patient was seen in the hospital. Phone #: [phone] (home) The patient's preferred pharmacy has been captured for this encounter? yes Clotilde Lopez MA September 17, 2024 8:24 AM documented in this encounter [facility] 09-16-2024 Telephone encounter Note Patient was enrolled in [employer] and will have a 30 day event monitor mailed to her. [facility] 09-16-2024 Miscellaneous Notes Patient was enrolled in [employer] and will have a 30 day event monitor mailed to her. documented in this encounter [facility] 09-13-2024 Telephone encounter Note Fax received from [employer] stating they needed additional information. Call placed to patient and went over paperwork. Everything included and faxed back to [employer]. Elisabeth Solares LPN [facility] 09-13-2024 Miscellaneous Notes Fax received from [employer] stating they needed additional information. Call placed to patient and went over paperwork. Everything included and faxed back to [employer]. Elisabeth Solares LPN Paperwork faxed to [employer] patient assistance at [phone] Form completed. Please take to medical records so she can apple picker. In my out box. Please call patient and let her know. Radha Zamora APRN.KANG I do not have any papers. Radha Zamora APRN.CNP Patient calling she was [facility] late morning today and left patient assistance forms for [employer]. She was told placed in mailbox. She completed all that she was to do. She said she put sticky note on page that provider needs to complete. documented in this encounter [facility] 09-11-2024 Telephone encounter Note Paperwork faxed to [employer] patient assistance at [phone] [facility] 09-11-2024 Telephone encounter Note Form completed. Please take to medical records so she can apple picker. In my out box. Please call patient and let her know. Radha Zamora APRN.CNP [facility] 09-11-2024 Telephone encounter Note I do not have any papers. Radha Zamora APRN.CNP [facility] 09-10-2024 Telephone encounter Note Patient calling she was [facility] late morning today and left patient assistance forms for Eliquis. She was told placed in mailbox. She completed all that she was to do. She said she put sticky note on page that provider needs to complete. [facility] 09-10-2024 Telephone encounter Note Reviewed. Radha Zamora APRN.CNP [facility] 09-10-2024 Miscellaneous Notes Reviewed. Radha Zamora APRN.CNP Pt called and is notified of providers message. Pt voices understanding. She states that yes Cardiology is having her go on the Pradaxa 150 BID in the interim while trying to get accepted into the [employer] assistance program. She states sh called the pharmacy and they reported they will have it in stock in 1-2 days. She states the Chemical Plant Worker called her back to make sure she finishes the Eliquis completely before staring the Pradaxa. Cayla Emery, RN So cardiology is putting her on Pradaxa in the interim? Radha Zamora APRN.KANG Pt calls back to report she spoke to fumigator and sterilizer Dr. Bertrand. Pt reports she will run out of Eliquis on Sunday 09/16 and will start on Pradaxa 150 mg bid on 09/17. Pt reports she will still bring in paperwork for [facility] for pt assistance since the goal is to get pt on Eliquis. China Dudley LPN Pt states she is trying to go through the [facility] assistance program. She said she is filling out the paperwork and bring it into Dr Vera's office tomorrow to finish filling and get it faxes in. Pt states she hasn't hear back from the Chemical Plant Worker yet. She said they had talked about the Coumadin at the beginning, and said they have the [facility], but she lives in [place]. I told her we do have a Coumadin clinic in [place]. Pt was wanting to know if the Coumadin was something that she could take until she could get the Eliquis figured out. I told her with the Coumadin she would need to get her INR drawn and bridge with and injectable, so I don't know if they would just put her on it for a short period of time. Pt was then asking if she really even needed to be on a blood thinner, she said she was fine until she started taking the one medication that can cause heart issues then the bottom fell out. I told her with A flutter you typically have to be on a blood thinner because you can throw a blood clot. Pt said she knows, but she never had any issues with this before. I told her that would be something she would need to talk with her providers about. If she can not afford the Eliquis will need to start Coumadin. Would likely need to be bridged with an injectable until her blood level reflects her level is therapeutic. If cardiology not wanting to do this we will need to. Radha Zamora APRN.KANG Patient calling stating that fumigator and sterilizer from [facility] placed patient on Eliquis. This medication is too expensive $560 a month and then the alternative is $533 and the last alternative is too new and is not even on patient's formulary. Patient is needing another option other than these. Patient also applied for assistance with the drug company , but in the meantime patient needs a medication. Patient is calling her fumigator and sterilizer at [facility] as well to ask what is the next step she can do since these are too expensive. Please review and advise further if there is anything else we can do for her. Antonieta Puentes LPN documented in this encounter [facility] 09-09-2024 Telephone encounter Note Pt called and is notified of providers message. Pt voices understanding. She states that yes Cardiology is having her go on the Pradaxa 150 BID in the interim while trying to get accepted into the [employer] assistance program. She states sh called the pharmacy and they reported they will have it in stock in 1-2 days. She states the Chemical Plant Worker called her back to make sure she finishes the Eliquis completely before staring the Pradaxa. Cayla Emery, NICK [facility] 09-09-2024 Telephone encounter Note So cardiology is putting her on Pradaxa in the interim? Radha Zamora APRN.KANG [facility] 09-09-2024 Telephone encounter Note Pt calls back to report she spoke to fumigator and sterilizer Dr. Bertrand. Pt reports she will run out of Eliquis on Sunday 09/16 and will start on Pradaxa 150 mg bid on 09/17. Pt reports she will still bring in paperwork for [facility] for pt assistance since the goal is to get pt on Eliquis. China Dudley LPN [facility] 09-09-2024 Telephone encounter Note Pt states she is trying to go through the [employer] assistance program. She said she is filling out the paperwork and bring it into Dr Vera's office tomorrow to finish filling and get it faxes in. Pt states she hasn't hear back from the Chemical Plant Worker yet. She said they had talked about the Coumadin at the beginning, and said they have the [facility], but she lives in [place]. I told her we do have a Coumadin clinic in [place]. Pt was wanting to know if the Coumadin was something that she could take until she could get the Eliquis figured out. I told her with the Coumadin she would need to get her INR drawn and bridge with and injectable, so I don't know if they would just put her on it for a short period of time. Pt was then asking if she really even needed to be on a blood thinner, she said she was fine until she started taking the one medication that can cause heart issues then the bottom fell out. I told her with A flutter you typically have to be on a blood thinner because you can throw a blood clot. Pt said she knows, but she never had any issues with this before. I told her that would be something she would need to talk with her providers about. T [facility] 09-09-2024 Telephone encounter Note If she can not afford the Eliquis will need to start Coumadin. Would likely need to be bridged with an injectable until her blood level reflects her level is therapeutic. If cardiology not wanting to do this we will need to. Radha Zamora APRN.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 ENGINEER [facility] 09-09-2024 Telephone encounter Note Patient calling stating that fumigator and sterilizer from [facility] placed patient on Eliquis. This medication is too expensive $560 a month and then the alternative is $533 and the last alternative is too new and is not even on patient's formulary. Patient is needing another option other than these. Patient also applied for assistance with the drug company , but in the meantime patient needs a medication. Patient is calling her fumigator and sterilizer at [facility] as well to ask what is the next step she can do since these are too expensive. Please review and advise further if there is anything else we can do for her. Antonieta Puentes LPN [facility] 09-02-2024 Telephone encounter Note Pt called and notified per tomasz I do not know what kind of insurance she has but the only thing she can take that is going to be cheapest Coumadin. She can call her insurance and see if Xarelto 20 mg daily or Pradaxa 150 mg twice a day is affordable but otherwise she needs referred to the Coumadin clinic if that is what she wants to do. Pt agreeable [facility] 09-02-2024 Miscellaneous Notes Pt called and notified per tomasz I do not know what kind of insurance she has but the only thing she can take that is going to be cheapest Coumadin. She can call her insurance and see if Xarelto 20 mg daily or Pradaxa 150 mg twice a day is affordable but otherwise she needs referred to the Coumadin clinic if that is what she wants to do. Pt agreeable I do not know what kind of insurance she has but the only thing she can take that is going to be cheapest Coumadin. She can call her insurance and see if Xarelto 20 mg daily or Pradaxa 150 mg twice a day is affordable but otherwise she needs referred to the Coumadin clinic if that is what she wants to do. Patient is calling and stating that she was put on Eliquis in the hospital by Dr Ba. She can't afford to get it and is trying to get PAP. She wont know before she runs out if she is approved. She is asking if there is something cheaper for her to be put on in place of that. Can you let her know documented in this encounter [facility] 09-02-2024 Telephone encounter Note I do not know what kind of insurance she has but the only thing she can take that is going to be cheapest Coumadin. She can call her insurance and see if Xarelto 20 mg daily or Pradaxa 150 mg twice a day is affordable but otherwise she needs referred to the Coumadin clinic if that is what she wants to do. [facility] Work Phone: 09-02-2024 Telephone encounter Note Patient is calling and stating that she was put on Eliquis in the hospital by Dr Ba. She can't afford to get it and is trying to get PAP. She wont know before she runs out if she is approved. She is asking if there is something cheaper for her to be put on in place of that. Can you let her know [facility] 09-02-2024 Telephone encounter Note Record ID: [id number] Patient name: Jessica Lazcano Date: September 02, 2024 08:10 Administered by: BRIAN Protocol: -> Great! Now we are in a secure chat environment. Protecting your health information is important to us. Ok, let's get started. Please verify your name and date of . Please click on the button with your first name. -> Jessica Got it. On to the next question... Select the button with your last name. -> Jaleesa Got it, thank you. Please enter your date of in MM/DD/YYYY format:(e.g., 12/08/1967 for Dec 08, 1967) -> 1950 Thank you for verifying your information. I'd like to ask you a few questions about how your recovery is going. Have there been any new or worsening symptoms since your last response? -> No I'm glad to hear that. Thank you for your time and for allowing us to care for you. Please be sure to reach out to your provider for any further symptoms or needs. Please rate your satisfaction with the care and support you have received from us since you have been home: (scale 1-5; 1 worst and 5 best) -> 4 Please tell me what you liked best about your experience: -> just checking up on me Please tell me what you liked least about your experience: -> n/a [facility] 09-02-2024 Miscellaneous Notes Record ID: [id number] Patient name: Jessica Lazcano Date: September 02, 2024 08:10 Administered by: BRIAN Protocol: -> Great! Now we are in a secure chat environment. Protecting your health information is important to us. Ok, let's get started. Please verify your name and date of . Please click on the button with your first name. -> Jessica Got it. On to the next question... Select the button with your last name. -> Jaleesa Got it, thank you. Please enter your date of in MM/DD/YYYY format:(e.g., 12/08/1967 for Dec 08, 1967) -> 1950 Thank you for verifying your information. I'd like to ask you a few questions about how your recovery is going. Have there been any new or worsening symptoms since your last response? -> No I'm glad to hear that. Thank you for your time and for allowing us to care for you. Please be sure to reach out to your provider for any further symptoms or needs. Please rate your satisfaction with the care and support you have received from us since you have been home: (scale 1-5; 1 worst and 5 best) -> 4 Please tell me what you liked best about your experience: -> just checking up on me Please tell me what you liked least about your experience: -> n/a documented in this encounter [facility] 09-02-2024 Instructions Radha Zamora APRN.CNP - 09/02/2024 12:38 PM EDT Repeat chest CT October 11 documented in this encounter [facility] 09-02-2024 History of Presen t illness Narrative 09/02/2024 Patient presents with: Hospital F/U: [facility] ER 08/16- Transferred to [facility] 08/16-08/19 SUBJECTIVE: This is a 73 year old, accompanied by daughter that is here today for Above Complaints. HOSPITAL/ER FOLLOW UP: Reason for visit: weakness, fatigue and presyncope Which facility: [facility] Date of visit: 08/16/2024-08/19/2024 Diagnosis: atrial flutter, pneumonia Testing done: ECHO stress test, CXR, CT chest, blood work, blood cultures, UA, US KUB Treatment given: IV amiodarone started on Metoprolol tartrate 75 mg and Eliquis, lisinopril changed to 5 mg BID Discharged on Augmentin and recommend follow-up CT in 8 weeks and follow-up with cardiology. Completed Augmentin without difficulty.Patient reports she spoke with cardiologists office, Lonnie Garza about getting an event monitor and they will mail out to her. Denies bleeding symptoms, fevers, chills, SOB, dyspnea, cough, wheezing, chest pain, palpitations or leg swelling Hospital course reviewed PAST MEDICAL HISTORY Diagnosis Date Adjustment disorder with depressed mood Anxiety Atypical atrial flutter (HCC) 08/16/2024 By EKG from [facility] at 188 bpm with intermittent right bundle branch aberrancy. 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 No obstructive disease at that time. Treated chronically with amlodipine 10 mg daily. CVA (cerebral vascular accident) (HCC) 02/2023 H/O cardiac catheterization 2001 At [facility]. No evidence of significant coronary disease. Thought to have coronary artery vasospasm. H/O echocardiogram 06/14/2010 Exercise stress echo at [facility]. EF 60%. Trivial MR and TR. No evidence of ischemia after 6 minutes of exercise and a heart rate of 153 bpm (93% of age-predicted maximum). History of endometriosis History of melanoma 10/15/2014 HLD (hyperlipidemia) HTN (hypertension) Hx of echocardiogram 02/2023 Transthoracic echocardiogram at [facility]. Normal heart function per patient report. Osteoporosis 06/12/2023 Other and unspecified hyperlipidemia Overweight (BMI 25.0-29.9) Right sided weakness ALLERGIES Lipitor [Atorvastatin] MEDICATIONS Current Outpatient Medications Medication Sig metoprolol tartrate, short acting, 75 mg tab Take 1 tablet by mouth every 12 hours. apixaban (ELIQUIS) 5 mg tab(s) Take 1 tablet by mouth two times a day. lisinopril (ZESTRIL) 5 mg tablet Take 1 tablet by mouth every 12 hours. colchicine 0.6 mg tablet Take 1 tablet by mouth once daily. traZODone (DESYREL) 50 mg tablet Take 1 tablet by mouth daily at bedtime. alendronate (FOSAMAX) 70 mg tablet Take 1 tablet by mouth one time a week. Take with a full glass of water, on an empty stomach; do NOT lie down for 30minutes. amLODIPine (NORVASC) 10 mg tablet Take 1 tablet by mouth once daily. rosuvastatin (CRESTOR) 20 mg tablet Take 1 tablet by mouth daily at bedtime. busPIRone (BUSPAR) 5 mg tablet Take 1 tablet by mouth two times a day. diphenhydrAMINE (BENADRYL) 25 mg capsule Take 25 mg by mouth every 6 hours as needed. aspirin, enteric coated (ASPIRIN, ENTERIC COATED) 81 mg EC tablet Take 1 tablet by mouth once daily. No current facility-administered medications for this visit. Medications and allergies reviewed by this provider. SOCIAL HISTORY Social History Tobacco Use Smoking status: Never Smokeless tobacco: Never Substance Use Topics Alcohol use: Not Currently Comment: less than monthly; never heavy or daily drinker. Drug use: Never REVIEW OF SYSTEMS All other reviewed and negative other than HPI. OBJECTIVE: BP 114/66 Pulse (!) 57 Resp 18 Wt 71 kg (156 lb 9.6 oz) SpO2 98% BMI 25.28 kg/m . Vital signs reviewed by this provider. APPEARANCE Well appearing, alert, in no acute distress, well-hydrated, well nourished. EYES conjunctiva and sclera normal. HEART RRR with normal S1 and S2, no murmurs, no gallops, no JVD appreciated LUNG clear to auscultation. No wheezes, rhonchi or rales EXTREMITIES Extremities normal, No deformities, No skin discoloration, and No edema SKIN Skin color, texture, turgor normal, no suspicious rashes or lesions to exposed skin Hepatitis C Screening Never done Colorectal Cancer Screening due on 04/11/2014 Advance Directive Discussion due on 11/20/2023 Mammogram Screening due on 05/18/2024 Influenza Vaccine(1) Never done Covid-19 Vaccine(1 - 2023- season) Never done DTaP,Tdap,Td Vaccine(2 - Td or Tdap) due on 06/24/2025 Shingrix Vaccine(1 of 2) due on 06/24/2025 Pneumococcal Vaccine: 65+(1 of 1 - PCV) due on 06/24/2025 Annual PCP Team Chronic Disease Visit due on 09/02/2025 BP Controlled (<130/80) due on 09/02/2025 Diabetes Screening due on 08/19/2027 RSV Vaccine(1 - 1-dose 75+ series) due on 2027 Lipid Screening due on 08/17/2029 Bone Density Screening Completed ASSESSMENT/PLAN: 1. Hospital discharge follow-up - ICD9: V67.59, ICD10: Z09 (primary diagnosis) - plan as below - follow-up in December as scheduled sooner if needed 2. Abnormal CT scan of lung - ICD9: 793.19, ICD10: R91.8 - recommended to repeat in 8 weeks per hospital - CT CHEST WO IVCON 3. Pneumonia of left lung due to infectious organism, unspecified part of lung - ICD9: 486, ICD10: J18.9 - feeling improved - plan as in #2 4. Atrial flutter, unspecified type (HCC) - ICD9: 427.32, ICD10: I48.92 - follow-up with cardiology as recommended - gave patient application to fill out for [employer] assistance - continue current medications Radha Zamora APRN.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 ENGINEER Prescription instructions reviewed with patient as applicable. Patient advised if symptoms do not improve or if symptoms worsen sooner, to contact their primary care physician. Potential red flag symptoms discussed with the patient. Reviewed appropriate action plan to take if red flag symptoms occur. Patient agreeable to treatment plan. Medical Decision Making: Problems: Moderate: New problem with uncertain prognosis Data: Unique test result(s) reviewed: 3+ Unique test(s) ordered: 1 Risk: Moderate: Moderate risk from testing/treatment Medical Decision Making Level: 4 - Moderate documented in this encounter [facility] 09-02-2024 Note HNO ID: [id number] Author: RADHA ZAMORA APRN.KANG Service: ? Author Type: Nurse Practitioner Type: Progress Notes Filed: 09/02/2024 14:00 Note Text: 09/02/2024 Patient presents with: Hospital F/U: [facility] 08/16- Transferred to [facility] 08/16-08/19 SUBJECTIVE: This is a 73 year old, accompanied by daughter that is here today for Above Complaints. HOSPITAL/ER FOLLOW UP: Reason for visit: weakness, fatigue and presyncope Which facility: [facility] Date of visit: 08/16/2024-08/19/2024 Diagnosis: atrial flutter, pneumonia Testing done: ECHO stress test, CXR, CT chest, blood work, blood cultures, UA, US KUB Treatment given: IV amiodarone started on Metoprolol tartrate 75 mg and Eliquis, lisinopril changed to 5 mg BID Discharged on Augmentin and recommend follow-up CT in 8 weeks and follow-up with cardiology. Completed Augmentin without difficulty.Patient reports she spoke with cardiologists office, Lonnie Garza about getting an event monitor and they will mail out to her. Denies bleeding symptoms, fevers, chills, SOB, dyspnea, cough, wheezing, chest pain, palpitations or leg swelling Hospital course reviewed PAST MEDICAL HISTORY Diagnosis Date Adjustment disorder with depressed mood Anxiety Atypical atrial flutter (HCC) 08/16/2024 By EKG from [facility] at 188 bpm with intermittent right bundle branch aberrancy. BMI 32.0-32.9,adult 08/17/2024 Carotid stenosis, bilateral 05/30/2023 40-59% Coronary artery vasospasm (HCC) 2001 By cardiac catheterization at [facility] 2001. No obstructive disease at that time. Treated chronically with amlodipine 10 mg daily. CVA (cerebral vascular accident) ([facility]) 02/2023 H/O cardiac catheterization 2001 At [facility]. No evidence of significant coronary disease. Thought to have coronary artery vasospasm. H/O echocardiogram 06/14/2010 Exercise stress echo at [facility]. EF 60%. Trivial MR and TR. No evidence of ischemia after 6 minutes of exercise and a heart rate of 153 bpm (93% of age-predicted maximum). History of endometriosis History of melanoma 10/15/2014 HLD (hyperlipidemia) HTN (hypertension) Hx of echocardiogram 02/2023 Transthoracic echocardiogram at [facility]. Normal heart function per patient report. Osteoporosis 06/12/2023 Other and unspecified hyperlipidemia Overweight (BMI 25.0-29.9) Right sided weakness ALLERGIES Lipitor [Atorvastatin] MEDICATIONS Current Outpatient Medications Medication Sig metoprolol tartrate, short acting, 75 mg tab Take 1 tablet by mouth every 12 hours. apixaban (ELIQUIS) 5 mg tab(s) Take 1 tablet by mouth two times a day. lisinopril (ZESTRIL) 5 mg tablet Take 1 tablet by mouth every 12 hours. colchicine 0.6 mg tablet Take 1 tablet by mouth once daily. traZODone (DESYREL) 50 mg tablet Take 1 tablet by mouth daily at bedtime. alendronate (FOSAMAX) 70 mg tablet Take 1 tablet by mouth one time a week. Take with a full glass of water, on an empty stomach; do NOT lie down for 30minutes. amLODIPine (NORVASC) 10 mg tablet Take 1 tablet by mouth once daily. rosuvastatin (CRESTOR) 20 mg tablet Take 1 tablet by mouth daily at bedtime. busPIRone (BUSPAR) 5 mg tablet Take 1 tablet by mouth two times a day. diphenhydrAMINE (BENADRYL) 25 mg capsule Take 25 mg by mouth every 6 hours as needed. aspirin, enteric coated (ASPIRIN, ENTERIC COATED) 81 mg EC tablet Take 1 tablet by mouth once daily. No current facility-administered medications for this visit. Medications and allergies reviewed by this provider. SOCIAL HISTORY Social History Tobacco Use Smoking status: Never Smokeless tobacco: Never Substance Use Topics Alcohol use: Not Currently Comment: less than monthly; never heavy or daily drinker. Drug use: Never REVIEW OF SYSTEMS All other reviewed and negative other than HPI. OBJECTIVE: BP 114/66 Pulse (!) 57 Resp 18 Wt 71 kg (156 lb 9.6 oz) SpO2 98% BMI 25.28 kg/m? . Vital signs reviewed by this provider. APPEARANCE Well appearing, alert, in no acute distress, well-hydrated, well nourished. EYES conjunctiva and sclera normal. HEART RRR with normal S1 and S2, no murmurs, no gallops, no JVD appreciated LUNG clear to auscultation. No wheezes, rhonchi or rales EXTREMITIES Extremities normal, No deformities, No skin discoloration, and No edema SKIN Skin color, texture, turgor normal, no suspicious rashes or lesions to exposed skin Hepatitis C Screening Never done Colorectal Cancer Screening due on 04/11/2014 Advance Directive Discussion due on 11/20/2023 Mammogram Screening due on 05/18/2024 Influenza Vaccine(1) Never done Covid-19 Vaccine(1 - 2023- season) Never done DTaP,Tdap,Td Vaccine(2 - Td or Tdap) due on 06/24/2025 Shingrix Vaccine(1 of 2) due on 06/24/2025 Pneumococcal Vaccine: 65+(1 of 1 - PCV) due on 06/24/2025 Annual PCP Team Chronic Disease Vis (more content not included)... [facility] 08-26-2024 Telephone encounter Note Record ID: [id number] Patient name: Jessica Lazcano Date: August 26, 2024: Administered by: BRIAN Protocol: -> Great! Now we are in a secure chat environment. Protecting your health information is important to us. Ok, let's get started. Please verify your name and date of . Please click on the button with your first name. -> Jessica Got it. On to the next question... Select the button with your last name. -> Pravinalexandra Got it, thank you. Please enter your date of in MM/DD/YYYY format:(e.g., [birth year]/1969 for [birth year] 08, 1967) -> 1950 Thank you for verifying your information. I'd like to ask you a few questions about how your recovery is going. Have you experienced any new or worsening symptoms since returning home? -> No I'm glad to hear that. Have you had a hospital follow-up appointment yet since your discharge? -> No [facility] 08-26-2024 Miscellaneous Notes Record ID: [id number] Patient name: Jessica Lazcano Date: August 26, 2024: Administered by: BRIAN Protocol: -> Great! Now we are in a secure chat environment. Protecting your health information is important to us. Ok, let's get started. Please verify your name and date of . Please click on the button with your first name. -> Jessica Got it. On to the next question... Select the button with your last name. -> Jaleesa Got it, thank you. Please enter your date of in MM/DD/YYYY format:(e.g., 12/08/1967 for Dec 08, 1967) -> 1950 Thank you for verifying your information. I'd like to ask you a few questions about how your recovery is going. Have you experienced any new or worsening symptoms since returning home? -> No I'm glad to hear that. Have you had a hospital follow-up appointment yet since your discharge? -> No documented in this encounter [facility] 08-20-2024 Telephone encounter Note Record ID: [id number] Patient name: Jessica Lzacano Date: August 20, 2024 - 12:56 Administered by: BRIAN Protocol: -> Great! Now we are in a secure chat environment. Protecting your health information is important to us. Ok, let's get started. Please verify your name and date of . Please click on the button with your first name. -> Jessica Got it. On to the next question... Select the button with your last name. -> Pastoragianlucaalexandra Got it, thank you. Please enter your date of in MM/DD/YYYY format:(e.g., 12/08/1967 for [birth year] 08, 1967) -> 1950 Thank you for verifying your information. I'd like to ask you a few questions about how your recovery is going. Since leaving the hospital, do you have any new or worsening symptoms? -> No I'm glad to hear that. We encourage a follow-up appointment with a physician within two weeks of being discharged from the hospital to oversee your recovery. It seems you have a follow up appointment scheduled, are you able to attend? -> Yes [facility] 08-20-2024 Miscellaneous Notes Record ID: [id number] Patient name: Jessica Lazcano Date: August 20, 2024 - 12:56 Administered by: BRIAN Protocol: -> Great! Now we are in a secure chat environment. Protecting your health information is important to us. Ok, let's get started. Please verify your name and date of . Please click on the button with your first name. -> Jessica Got it. On to the next question... Select the button with your last name. -> Jaleesa Got it, thank you. Please enter your date of in MM/DD/YYYY format:(e.g., 12/08/1967 for Dec 08, 1967) -> 1950 Thank you for verifying your information. I'd like to ask you a few questions about how your recovery is going. Since leaving the hospital, do you have any new or worsening symptoms? -> No I'm glad to hear that. We encourage a follow-up appointment with a physician within two weeks of being discharged from the hospital to oversee your recovery. It seems you have a follow up appointment scheduled, are you able to attend? -> Yes documented in this encounter [facility] 08-19-2024 Telephone encounter Note Patient is still in the Hospital and will be notified when she gets out. [facility] 08-19-2024 Miscellaneous Notes Patient is still in the Hospital and will be notified when she gets out. Patient will need a 30 day monitor for afib. documented in this encounter [facility] 08-19-2024 Note HNO ID: [id number] Author: SUJATHA MCKEON RN Service: Care Management Author Type: Registered Nurse Type: Care Mgt Initial Assessment Filed: 08/19/2024 15:12 Note Text: CARE MANAGEMENT: ASSESSMENT AND DISCHARGE PLAN SERVICE DATE: August 19, 2024 SERVICE TIME: 929 LATE ENTRY PCP: Ceci Vera MD Primary Contact: Extended Emergency Contact Information Primary Emergency Contact: Sandra Garcia Mobile Relation: Daughter Admission Status: Inpatient [facility] Discharge Planning requested by: Per Department Practice Potential Transition Plans Home Advance Directives Current Advance Directive: Health Care Power of Loss Prevention Associate 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 Attempted to Assist with AD Completion: Yes Action: Patient Completed Advance Directive (States Daughter Sandra is HcPOA) Current Living Arrangements and Support Lives with: Alone Type of Residence: Private Residence (House) Does the patient have to climb stairs at home?: stairs outside the home (2-3 steps) Support: Family members How do you manage to accomplish the following: Independent: Ambulation;Transportation to appointments/community;Bathe/Danielle wer;Dress;Meals/Meal Prep;Going to the bathroom;Medication Management Current Services/Equipment Current Post-Acute Service(s): DME Current DME Type: Cane, Walker, Wheelchair-manual, Shower seat, Grab bars, Bedside commode Discharge Planning Patient Goal(s): Independent living, Be able to go home, General wellness [place] of Choice Explained: Are you interested in bedside delivery of your medications? No Discharge Planning Participant(s): Patient Patient/Family Comments: Caregiver Assessment: Caregiver is ready, willing and able to meet the patient's needs as recommended by the inter-professional team: No Caregiver needed Transport at Discharge: Transportation Arrangements: Car Destination: home Needs Prior to Discharge: Needs Prior to Discharge: To Be Determined Post-Acute Discharge Plan: Intimate Partner Violence We have begun to talk to patients about safe and healthy relationships because it can have a large impact on your health. Do you feel safe around your partner or ex-partner?: Yes Food Insecurity Within the past 12 months, you worried that your food would run out before you got the money to buy more.: Never true Within the past 12 months, the food you bought just didn't last and you didn't have money to get more.: Never true Transportation Needs In the past 12 months, has lack of transportation kept you from medical appointments or from getting medications?: No In the past 12 months, has lack of transportation kept you from meetings, work, or from getting things needed for daily living?: No Housing Stability In the last 12 months, was there a time when you were not able to pay the mortgage or rent on time?: No In the past 12 months, how many times have you moved where you were living?: 1 At any time in the past 12 months, were you homeless or living in a [place] (including now)?: No Utilities In the past 12 months has the [employer], gas, oil, or water [employer] threatened to shut off services in your home?: No Social Information Financial Resources: Retired Chart Reviewed. Near syncope at home. Cardiac arrhythmia in the ER. Patient is independent and drives. From home alone. Has PCP Ceci Vera MD [phone] and was seen about 3 months ago. Has medical and Rx coverage. Patient uses a cane when out and about. She has a walker, wheelchair, shower chair, bedside commode, and grab bars in the home if needed. Denies any needs at this time. Patient was started on Eliquis prior to dicharge and provided an Eliquis savings card. D/C home. Patient denies needs. Will have transport home. SIGNATURE: Sujatha Mckeon RN PATIENT NAME: Jessica Lazcano DATE: August 19, 2024 TIME: 3:07 PM CONTACT #: [phone] [facility] 08-19-2024 Telephone encounter Note Patient will need a 30 day monitor for afib. [facility] 08-19-2024 Note HNO ID: [id number] Author: CARY BA MD Service: Cardiovascular Medicine Author Type: Physician Type: Progress Notes Filed: 08/19/2024 16:20 Note Text: CARDIOLOGY INPATIENT PROGRESS NOTE SERVICE DATE: 08/19/2024 SERVICE TIME: 1330 PRIMARY SERVICE: Electrophysiology Subjective The patient was transferred from the [facility] emergency room to [facility] for evaluation of recurrent supraventricular tachycardia. EKG is consistent with an atypical atrial flutter with intermittent aberrancy. This was documented in the emergency room. When it occurred she had a feeling of presyncope but did not lose consciousness. He states that she had multiple episodes in the emergency room. She did not appreciate any palpitations. Recently the patient has had problems with nausea and vomiting and feeling poorly. She was started on an antibiotic and she had worsening nausea and vomiting. Had some vertigo. Chest CT scan suggested a left lower lobe pneumonia. Currently the patient denies chest pain, shortness of breath, palpitations, or dizziness. She states that she slept well overnight. Objective SCHEDULED MEDICATIONS: sodium phosphate/glycerophosphate, 15 mmol, ONCE metoprolol tartrate (short acting), 75 mg, q 12 H cefTRIAXone, 2 g, AT BEDTIME aspirin, 81 mg, DAILY heparin, 5,000 Units, q [address], 40 mg, DAILY (6 AM) rosuvastatin, 20 mg, AT BEDTIME busPIRone, 5 mg, BID amLODIPine, 10 mg, DAILY lisinopril, 5 mg, DAILY IV MEDICATIONS: PRN MEDICATIONS: [COMPLETED] ECHO WITH AGITATED SALINE CONTRAST, , Once AND sodium chloride 0.9 % (flush), 2-10 mL, DIRECTED PRN AND perflutren lipid microspheres, 1.3 mL, DIRECTED PRN guaiFENesin, 200 mg, q 4 H PRN NaCl 0.9%, 20 mL, PRN nitroglycerin sublingual, 0.4 mg, q 5 MIN PRN atropine, 0.4 mg, PRN(NO DISPENSE) morphine, 4 mg, q 3 H PRN ondansetron (PF), 4 mg, q 6 H PRN [COMPLETED] CT CHEST W IVCON PE, , Once AND iv contrast, , DIRECTED PRN levalbuterol, 1.25 mg, q 6 H PRN benzonatate, 200 mg, TID PRN PHYSICAL EXAM: 08/19/24 0529 08/19/24 0739 08/19/24 1057 08/19/24 1158 BP: 134/62 146/71 129/67 138/65 Pulse: 64 66 (!) 55 (!) 57 Resp: 16 22 Temp: 36.9 ?C (98.5 ?F) 37 ?C (98.6 ?F) 37.1 ?C (98.8 ?F) TempSrc: Oral SpO2: 93% 93% 92% 93% Weight: Height: Temp (24hrs), Av ?C (98.6 ?F), Min:36.7 ?C (98.1 ?F), Max:37.1 ?C (98.8 ?F) Physical Exam Vitals reviewed. Constitutional: Appearance: Normal appearance. Neck: Vascular: No carotid bruit or JVD. Cardiovascular: Rate and Rhythm: Normal rate and regular rhythm. Pulses: Carotid pulses are 2+ on the right side and 2+ on the left side. Heart sounds: Normal heart sounds. No murmur heard. No systolic murmur is present. No diastolic murmur is present. No friction rub. No gallop. No S3 or S4 sounds. Pulmonary: Effort: No respiratory distress. Breath sounds: Normal breath sounds. No stridor. No wheezing, rhonchi or rales. Chest: Chest wall: No tenderness. Abdominal: General: Abdomen is flat. Bowel sounds are normal. There is no distension. Palpations: Abdomen is soft. Tenderness: There is no abdominal tenderness. There is no guarding. Musculoskeletal: Right lower leg: No edema. Left lower leg: No edema. Skin: Findings: No rash. Neurological: Mental Status: She is alert. DATA: Diagnostic tests reviewed for today's visit: Most recent labs Recent Labs 08/19/2441808/18/24 0529 08/17/24 0403 HB 10.5* 10.6* 12.0 HCT 30.4* 30.6* 33.6* MCV 85.2 85.0 84.0 WBC 11.54* 12.65* 14.60* PLT 322 273 244 Recent Labs 08/19/24 0419 08/18/24 0529 08/17/24 1126 08/17/24 0403 NA 137 135* -- 132* K 3.9 4.1 3.6 3.3* CHLOR 106 107 -- 100 CO2 -- 18* BUN 9 9 -- 11 CREAT 0.73 0.81 -- 0.67 GLUC 102* 103* -- 129* MG 2.1 2.8* -- 1.7 TPROT 6.4 6.6 -- -- ALB 3.0* 2.9* -- -- ALKPHOS 40* 36* -- -- TBILI 0.3 0.3 -- -- ALT 24 17 -- -- AST 33 29 -- -- Triglyceride 77 08/17/2024 Cholesterol, Total 111 08/17/2024 HDL Cholesterol 40 08/17/2024 LDL Chol, Marya 56 08/17/2024 Hemoglobin A1C 5.5 08/14/2024 TSH 2.251 08/16/2024 Uric Acid 2.7 08/18/2024 HSCRP 162 08/19/2024 TELEMETRIC MONITORING: Normal sinus rhythm with a normal MO interval and narrow QRS complex. The patient has premature atrial contractions. There was one 10 beat episode of ectopic atrial tachycardia 165 bpm without aberrancy on 08/17/2024. Overnight the patient has had no further atrial ectopy on the monitor alarms. Heart rates are in the 50s and 60s. EKG: August 19, 2024: Normal sinus rhythm at 64 bpm. Intra-atrial conduction delay. NSTW change anteroseptal leads EKG at [facility] 08/16/2024 shows an atypical atrial flutter with a ventricular rate of 188 bpm. There was some variability in the RR interval with a long-short interval followed (more content not included)... [facility] 08-19-2024 Note HNO ID: [id number] Author: PRESTON MONTEZ MD Service: Hospital Medicine Author Type: Physician Type: Progress Notes Filed: 08/19/2024 12:28 Note Text: INPATIENT PROGRESS NOTE SERVICE DATE: 08/19/2024 HOSPITAL COURSE: Subjective CHIEF COMPLAINT: Weakness INTERVAL HPI: Seen and examined. She feels better today. More energetic. In normal sinus rhythm. Pending cardiology clearance for discharge, I will reach out to occur electrophysiology team and they will see the patient and they will update me. Current Outpatient Medications Medication Instructions alendronate (FOSAMAX) 70 mg, ORAL, 1 TIME WEEKLY, Take with a full glass of water, on an empty stomach; do NOT lie down for 30minutes. amLODIPine (NORVASC) 10 mg, ORAL, DAILY aspirin, enteric coated (ASPIRIN, ENTERIC COATED) 81 mg, ORAL, DAILY busPIRone (BUSPAR) 5 mg, ORAL, 2 TIMES DAILY diphenhydrAMINE (BENADRYL) 25 mg, ORAL, EVERY 6 HOURS NEEDED lisinopril (ZESTRIL) 5 mg, ORAL, DAILY metoprolol succinate ER (TOPROL XL) 50 mg, ORAL, DAILY nitrofurantoin monohydrate and macrocrystal (MACROBID) 100 mg capsule 100 mg, ORAL, 2 TIMES DAILY W/MEALS rosuvastatin (CRESTOR) 20 mg, ORAL, AT BEDTIME traZODone (DESYREL) 50 mg, ORAL, AT BEDTIME Current Facility-Administered Medications Medication Dose Route Frequency NaCl 0.9% iv flush bag 20 mL INTRAVENOUS PRN aspirin 81 mg chewable tab(s) 81 mg ORAL DAILY nitroglycerin sublingual 0.4 mg tab(s) (NITROQUICK) 0.4 mg SUBLINGUAL q 5 MIN PRN atropine 0.4 mg injection 0.4 mg INTRAVENOUS PRN(NO DISPENSE) morphine 4 mg injection 4 mg INTRAVENOUS q 3 H PRN ondansetron (PF) 4 mg injection (ZOFRAN) 4 mg INTRAVENOUS q 6 H PRN heparin 5,000 Units injection 5,000 Units SUBCUTANEOUS q 12 H iv contrast (radiology procedure) INTRAVENOUS DIRECTED PRN levalbuterol 1.25 mg nebulizer solution (XOPENEX) 1.25 mg INHALATION q 6 H PRN benzonatate 200 mg cap(s) (TESSALON PERLE) 200 mg ORAL TID PRN pantoprazole DR 40 mg tab(s) (PROTONIX) 40 mg ORAL DAILY (6 AM) rosuvastatin 20 mg tab(s) (CRESTOR) 20 mg ORAL AT BEDTIME busPIRone 5 mg tab(s) (BUSPAR) 5 mg ORAL BID amLODIPine 10 mg tab(s) (NORVASC) 10 mg ORAL DAILY lisinopril 5 mg tab(s) (ZESTRIL) 5 mg ORAL DAILY sodium chloride 0.9 % (flush) 2-10 mL (BD POSIFLUSH) 2-10 mL INTRAVENOUS DIRECTED PRN And perflutren lipid microspheres 1.1 mg/mL 1.3 mL injection (DEFINITY) 1.3 mL INTRAVENOUS DIRECTED PRN guaiFENesin 200 mg oral liquid (ROBITUSSIN) 200 mg ORAL q 4 H PRN cefTRIAXone 2 g in D5W 100 mL Vial-Bag (ROCEPHIN) 2 g INTRAVENOUS AT BEDTIME metoprolol tartrate (short acting) (LOPRESSOR) tab(s) 75 mg 75 mg ORAL q 12 H Objective PHYSICAL EXAM: General: Patient is alert and oriented x3 and is in no acute respiratory distress HEENT: Normal cephalic, atraumatic, PERRLA, TM's normal, Nose clear, Mouth normal Neck: Negative hepatojugular reflux or jugular venous distention, negative carotid bruit. Lungs: Left-sided crackles Cardiac: Regular rhythm and rate, S1-S2 within normal limits, no murmurs, gallops were appreciated, no rubs. Abdomen: Soft, nontender, nondistended, no HSM detected, bowel sounds are active. Extremities: [No edema, cyanosis, or clubbing. Skin: No rashes or breakdown. Musculoskeletal: normal MS exam, moves all extremities, DTR's normal Lymphatic: Negative cervical, supra-clavicular, groin lymphadenopathy. Neurologic: Cranial nerves from II-XII intact grossly, no focal deficits. Glucose (mg/dL) Date Value 08/19/2024 102 12/11/2012 98 Potassium (mmol/L) Date Value 08/19/2024 3.9 12/11/2012 4.0 Sodium (mmol/L) Date Value 08/19/2024 137 12/11/2012 143 Chloride (mmol/L) Date Value 08/19/2024 106 12/11/2012 105 CO2 (mmol/L) Date Value 08/19/2024 24 12/11/2012 24 Creatinine (mg/dL) Date Value 08/19/2024 0.73 12/11/2012 0.72 BUN (mg/dL) Date Value 08/19/2024 9 12/11/2012 18 Anion Gap (mmol/L) Date Value 08/19/2024 7 12/11/2012 14 Calcium (mg/dL) Date Value 12/11/2012 10.1 Calcium, Total (mg/dL) Date Value 08/19/2024 8.8 Estimated Creatinine Clearance: 73.4 mL/min (based on SCr of 0.73 mg/dL). CBC with diff: WBC 14.60 08/17/2024 RBC 4.00 08/17/2024 Hemoglobin 12.0 08/17/2024 Hematocrit 33.6 08/17/2024 MCV 84.0 08/17/2024 MCH 30.0 08/17/2024 MCHC 35.7 08/17/2024 RDW-CV 12.1 08/17/2024 Platelet Count 244 08/17/2024 MPV 10.9 08/17/2024 Neutrophils % 74.8 03/22/2024 Lymphocytes % 15.5 03/22/2024 Monocytes % 9.3 03/22/2024 Eosinophils % 0.0 03/22/2024 Basophils % 0.1 03/22/2024 Abs Neut 8.23 03/22/2024 Abs [place] 1.02 03/22/2024 Abs Eosin <0.03 03/22/2024 Abs Baso <0.03 03/22/2024 BP 138/65 Pulse 57 Temp (Src) 98.8 (Oral) Resp 22 Ht 5' 6 (1.68m) Wt 166 lb 10.7 oz (75.6kg) SpO2 93% BMI 26.91 kg/(m2). O2 Therapy: Room Air, Liters: 0.0 DATA: Diagnostic tests reviewed for today's visit: Most recent labs and imaging results. Assessment/Plan (more content not included)... [facility] 08-18-2024 Note HNO ID: [id number] Author: PRESTON MONTEZ MD Service: Hospital Medicine Author Type: Physician Type: Progress Notes Filed: 08/18/2024 12:34 Note Text: INPATIENT PROGRESS NOTE SERVICE DATE: 08/18/2024 HOSPITAL COURSE: Subjective CHIEF COMPLAINT: Weakness INTERVAL HPI: Seen and examined. She feels much better today with minimal shortness of breath and minimal cough. No palpitation or chest pain. EKG showed normal sinus rhythm this morning. Current Outpatient Medications Medication Instructions alendronate (FOSAMAX) 70 mg, ORAL, 1 TIME WEEKLY, Take with a full glass of water, on an empty stomach; do NOT lie down for 30minutes. amLODIPine (NORVASC) 10 mg, ORAL, DAILY aspirin, enteric coated (ASPIRIN, ENTERIC COATED) 81 mg, ORAL, DAILY busPIRone (BUSPAR) 5 mg, ORAL, 2 TIMES DAILY diphenhydrAMINE (BENADRYL) 25 mg, ORAL, EVERY 6 HOURS NEEDED lisinopril (ZESTRIL) 5 mg, ORAL, DAILY metoprolol succinate ER (TOPROL XL) 50 mg, ORAL, DAILY nitrofurantoin monohydrate and macrocrystal (MACROBID) 100 mg capsule 100 mg, ORAL, 2 TIMES DAILY W/MEALS rosuvastatin (CRESTOR) 20 mg, ORAL, AT BEDTIME traZODone (DESYREL) 50 mg, ORAL, AT BEDTIME Current Facility-Administered Medications Medication Dose Route Frequency NaCl 0.9% iv flush bag 20 mL INTRAVENOUS PRN aspirin 81 mg chewable tab(s) 81 mg ORAL DAILY nitroglycerin sublingual 0.4 mg tab(s) (NITROQUICK) 0.4 mg SUBLINGUAL q 5 MIN PRN atropine 0.4 mg injection 0.4 mg INTRAVENOUS PRN(NO DISPENSE) morphine 4 mg injection 4 mg INTRAVENOUS q 3 H PRN ondansetron (PF) 4 mg injection (ZOFRAN) 4 mg INTRAVENOUS q 6 H PRN heparin 5,000 Units injection 5,000 Units SUBCUTANEOUS q 12 H iv contrast (radiology procedure) INTRAVENOUS DIRECTED PRN levalbuterol 1.25 mg nebulizer solution (XOPENEX) 1.25 mg INHALATION q 6 H PRN benzonatate 200 mg cap(s) (TESSALON PERLE) 200 mg ORAL TID PRN pantoprazole DR 40 mg tab(s) (PROTONIX) 40 mg ORAL DAILY (6 AM) rosuvastatin 20 mg tab(s) (CRESTOR) 20 mg ORAL AT BEDTIME busPIRone 5 mg tab(s) (BUSPAR) 5 mg ORAL BID amLODIPine 10 mg tab(s) (NORVASC) 10 mg ORAL DAILY lisinopril 5 mg tab(s) (ZESTRIL) 5 mg ORAL DAILY sodium chloride 0.9 % (flush) 2-10 mL (BD POSIFLUSH) 2-10 mL INTRAVENOUS DIRECTED PRN And perflutren lipid microspheres 1.1 mg/mL 1.3 mL injection (DEFINITY) 1.3 mL INTRAVENOUS DIRECTED PRN guaiFENesin 200 mg oral liquid (ROBITUSSIN) 200 mg ORAL q 4 H PRN cefTRIAXone 2 g in D5W 100 mL Vial-Bag (ROCEPHIN) 2 g INTRAVENOUS AT BEDTIME metoprolol tartrate (short acting) (LOPRESSOR) tab(s) 75 mg 75 mg ORAL q 12 H metoprolol tartrate (short acting) 25 mg tab(s) (LOPRESSOR) 25 mg ORAL ONCE sodium phosphate 15 mmol in D5W 250 mL 15 mmol INTRAVENOUS ONCE Objective PHYSICAL EXAM: General: Patient is alert and oriented x3 and is in no acute respiratory distress HEENT: Normal cephalic, atraumatic, PERRLA, TM's normal, Nose clear, Mouth normal Neck: Negative hepatojugular reflux or jugular venous distention, negative carotid bruit. Lungs: Left-sided crackles Cardiac: Regular rhythm and rate, S1-S2 within normal limits, no murmurs, gallops were appreciated, no rubs. Abdomen: Soft, nontender, nondistended, no HSM detected, bowel sounds are active. Extremities: [No edema, cyanosis, or clubbing. Skin: No rashes or breakdown. Musculoskeletal: normal MS exam, moves all extremities, DTR's normal Lymphatic: Negative cervical, supra-clavicular, groin lymphadenopathy. Neurologic: Cranial nerves from II-XII intact grossly, no focal deficits. Glucose (mg/dL) Date Value 08/18/2024 103 12/11/2012 98 Potassium (mmol/L) Date Value 08/18/2024 4.1 12/11/2012 4.0 Sodium (mmol/L) Date Value 08/18/2024 135 12/11/2012 143 Chloride (mmol/L) Date Value 08/18/2024 107 12/11/2012 105 CO2 (mmol/L) Date Value 08/18/2024 21 12/11/2012 24 Creatinine (mg/dL) Date Value 08/18/2024 0.81 12/11/2012 0.72 BUN (mg/dL) Date Value 08/18/2024 9 12/11/2012 18 Anion Gap (mmol/L) Date Value 08/18/2024 7 12/11/2012 14 Calcium (mg/dL) Date Value 12/11/2012 10.1 Calcium, Total (mg/dL) Date Value 08/18/2024 8.4 Estimated Creatinine Clearance: 66.2 mL/min (based on SCr of 0.81 mg/dL). CBC with diff: WBC 14.60 08/17/2024 RBC 4.00 08/17/2024 Hemoglobin 12.0 08/17/2024 Hematocrit 33.6 08/17/2024 MCV 84.0 08/17/2024 MCH 30.0 08/17/2024 MCHC 35.7 08/17/2024 RDW-CV 12.1 08/17/2024 Platelet Count 244 08/17/2024 MPV 10.9 08/17/2024 Neutrophils % 74.8 03/22/2024 Lymphocytes % 15.5 03/22/2024 Monocytes % 9.3 03/22/2024 Eosinophils % 0.0 03/22/2024 Basophils % 0.1 03/22/2024 Abs Neut 8.23 03/22/2024 Abs [place] 1.02 03/22/2024 Abs Eosin <0.03 03/22/2024 Abs Baso <0.03 03/22/2024 BP 145/62 Pulse 62 Temp (Src) 98.9 (Oral) Resp 18 Ht 5' 6 (1.68m) Wt 166 lb 10.7 oz (75.6kg) SpO2 96% BMI 26.91 kg/(m2). O2 Therapy: Nasal Cannula, Liters: 2 DATA: Diagnostic tests (more content not included)... [facility] 08-18-2024 Note HNO ID: [id number] Author: CARY BA MD Service: Cardiovascular Medicine Author Type: Physician Type: Progress Notes Filed: 08/18/2024 12:43 Note Text: CARDIOLOGY INPATIENT PROGRESS NOTE SERVICE DATE: 08/18/2024 SERVICE TIME: 11:00 AM PRIMARY SERVICE: Electrophysiology Subjective The patient was transferred from the [facility] emergency room to [facility] for evaluation of recurrent supraventricular tachycardia. EKG is consistent with an atypical atrial flutter with intermittent aberrancy. This was documented in the emergency room. When it occurred she had a feeling of presyncope but did not lose consciousness. He states that she had multiple episodes in the emergency room. She did not appreciate any palpitations. Recently the patient has had problems with nausea and vomiting and feeling poorly. She was started on an antibiotic and she had worsening nausea and vomiting. Had some vertigo. Chest CT scan suggested a left lower lobe pneumonia. Currently the patient denies chest pain, shortness of breath, palpitations, or dizziness. She states that she slept well overnight. Objective SCHEDULED MEDICATIONS: cefTRIAXone, 2 g, AT BEDTIME metoprolol tartrate (short acting), 50 mg, q 12 H aspirin, 81 mg, DAILY heparin, 5,000 Units, q [address], 40 mg, DAILY (6 AM) rosuvastatin, 20 mg, AT BEDTIME busPIRone, 5 mg, BID amLODIPine, 10 mg, DAILY lisinopril, 5 mg, DAILY IV MEDICATIONS: PRN MEDICATIONS: [COMPLETED] ECHO WITH AGITATED SALINE CONTRAST, , Once AND sodium chloride 0.9 % (flush), 2-10 mL, DIRECTED PRN AND perflutren lipid microspheres, 1.3 mL, DIRECTED PRN guaiFENesin, 200 mg, q 4 H PRN NaCl 0.9%, 20 mL, PRN nitroglycerin sublingual, 0.4 mg, q 5 MIN PRN atropine, 0.4 mg, PRN(NO DISPENSE) morphine, 4 mg, q 3 H PRN ondansetron (PF), 4 mg, q 6 H PRN [COMPLETED] CT CHEST W IVCON PE, , Once AND iv contrast, , DIRECTED PRN levalbuterol, 1.25 mg, q 6 H PRN benzonatate, 200 mg, TID PRN PHYSICAL EXAM: 08/18/24 0300 08/18/24 0400 08/18/24 0500 08/18/24 0600 BP: 147/63 126/60 107/56 145/62 Pulse: (!) 59 (!) 58 (!) 54 62 Resp: 18 18 18 18 Temp: TempSrc: SpO2: 96% 94% 96% 96% Weight: Height: Temp (24hrs), Av ?C (98.6 ?F), Min:36.7 ?C (98.1 ?F), Max:37.1 ?C (98.8 ?F) Physical Exam Vitals reviewed. Constitutional: Appearance: Normal appearance. Neck: Vascular: No carotid bruit or JVD. Cardiovascular: Rate and Rhythm: Normal rate and regular rhythm. Pulses: Carotid pulses are 2+ on the right side and 2+ on the left side. Heart sounds: Normal heart sounds. No murmur heard. No systolic murmur is present. No diastolic murmur is present. No friction rub. No gallop. No S3 or S4 sounds. Pulmonary: Effort: No respiratory distress. Breath sounds: Normal breath sounds. No stridor. No wheezing, rhonchi or rales. Chest: Chest wall: No tenderness. Abdominal: General: Abdomen is flat. Bowel sounds are normal. There is no distension. Palpations: Abdomen is soft. Tenderness: There is no abdominal tenderness. There is no guarding. Musculoskeletal: Right lower leg: No edema. Left lower leg: No edema. Skin: Findings: No rash. Neurological: Mental Status: She is alert. DATA: Diagnostic tests reviewed for today's visit: Most recent labs Recent Labs 08/18/24 0508/17/24 0403 HB 10.6* 12.0 HCT 30.6* 33.6* MCV 85.0 84.0 WBC 12.65* 14.60* PLT 273 244 Recent Labs 08/18/24 0508/17/24 1126 08/17/24 0403 08/16/24 2256 NA 135* -- 132* 132* K 4.1 3.6 3.3* 3.8 CHLOR 107 -- 100 100 CO2 21 -- 18* 21 BUN 9 -- 11 13 CREAT 0.81 -- 0.67 0.75 GLUC 103* -- 129* 128* MG 2.8* -- 1.7 1.7 TPROT 6.6 -- -- -- ALB 2.9* -- -- -- ALKPHOS 36* -- -- -- TBILI 0.3 -- -- -- ALT 17 -- -- -- AST 29 -- -- -- Triglyceride 77 08/17/2024 Cholesterol, Total 111 08/17/2024 HDL Cholesterol 40 08/17/2024 LDL Chol, Marya 56 08/17/2024 Hemoglobin A1C 5.5 08/14/2024 TSH 2.251 08/16/2024 Uric Acid 2.7 08/18/2024 HSCRP 08/19/2024 TELEMETRIC MONITORING: Normal sinus rhythm with a normal MO interval and narrow QRS complex. The patient has premature atrial contractions. There was one 10 beat episode of ectopic atrial tachycardia 165 bpm without aberrancy on 08/17/2024. Overnight the patient has had no further atrial ectopy on the monitor alarms. EK08/18/2024: Pending EKG at [facility] 08/16/2024 shows an atypical atrial flutter with a ventricular rate of 188 bpm. There was some variability in the RR interval with a long-short interval followed by right bundle branch aberrancy for 13 beats at a rate the same as the flutter rate. ECHO: TRANSTHORACIC ECHOCARDIOGRAM [facility] 2023: CONCLUSIONS: - Technically difficult exam due to body habitus. - Exam indication: Abnormal ECG (more content not included)... [facility] 08-18-2024 Note HNO ID: [id number] Author: MORRIS VALVERDE RT(R) Service: ? Author Type: Technologist Type: Progress Notes Filed: 08/18/2024 11:01 Note Text: RADIOLOGY SERVICE PROGRESS NOTE SERVICE DATE: 08/18/2024 SERVICE TIME: 11:00 AM PATIENT IDENTITY VERIFICATION COMPLETED USING TWO (2) STANDARD IDENTIFIERS: Name and Date of confirmed by patient verbally FALL SCREENING: Has the patient had 2 falls in the last year or 1 fall with injury or currently using an Ambulatory Assistive Device (Walker, Cane, Wheelchair, Crutches, etc.)? No PATIENT GENDER DATA: .female : No ALLERGIES: Reviewed and unchanged MEDICATIONS REVIEWED: Not applicable PATIENT RELEVANT IMPLANT DATA REVIEWED: Not Applicable PATIENT PRESENTS WITH AN IMPLANTABLE OR ATTACHED CLINICAL MEDICAL ASSISTANT: No CREATININE: Creatinine Date Value Ref Range Status 08/18/2024 0.81 0.51 - 0.95 mg/dL Final Comment: Patients receiving either N-Acetylcysteine (NAC) or Metamizole prior to venipuncture, may have falsely depressed results. 08/17/2024 0.67 0.51 - 0.95 mg/dL Final Comment: Patients receiving either N-Acetylcysteine (NAC) or Metamizole prior to venipuncture, may have falsely depressed results. 08/16/2024 0.75 0.51 - 0.95 mg/dL Final Comment: Patients receiving either N-Acetylcysteine (NAC) or Metamizole prior to venipuncture, may have falsely depressed results. Estimated Glomerular Filtration Rate Date Value Ref Range Status 08/18/2024 78 >=60 mL/min/1.73m? Final Comment: Estimated Glomerular Filtration Rate (eGFR) is calculated using the 2020 CKD-EPI creatinine equation. This equation utilizes serum creatinine, sex, and age as parameters. The creatinine assay has traceable calibration to isotope dilution-mass spectrometry. Refer to KDIGO guidelines for clinical interpretation. In patients with unstable renal function, e.g. those with acute kidney injury, the eGFR may not accurately reflect actual GFR. eGFR- Date Value Ref Range Status 12/11/2012 >60 Final P.O.C.T. RESULTS: N/A August 18, [address] PERFORMED: No IV SITE: Inpatient - refer to LDA documentation POST EXAM PIV STATUS: Inpatient see LDA documentation PROCEDURE TYPE: NM Stress: 12.8 mCi [id number] was administered IV for Rest Imaging at 0745 by dem. 36.0 mCi [id number] was administered IV for Stress Imaging at 1100 by dem. ADMINISTRATION TIME: 1130 PATIENT DISCHARGED TO: Patient taken to IP transport area for return to RNF/ICU/ED. A Diagnostic radioactive procedure has taken place, with no further precautions necessary other than routine body substance precautions. More information regarding radiation safety can be found using this link: [email or web address] SIGNATURE: RT Steven(R) PATIENT NAME: Jessica Lazcano DATE: August 18, 2024 TIME: 11:00 AM PAGER/CONTACT #: [facility] 08-17-2024 Note HNO ID: [id number] Author: CARY BA MD Service: Cardiovascular Medicine Author Type: Physician Type: Progress Notes Filed: 08/17/2024 20:33 Note Text: CARDIOLOGY INPATIENT PROGRESS NOTE SERVICE DATE: 08/17/2024 SERVICE TIME: 8:03 PM PRIMARY SERVICE: Electrophysiology Subjective The patient was transferred from the [facility] emergency room to [facility] for evaluation of recurrent supraventricular tachycardia. EKG is consistent with an atypical atrial flutter with intermittent aberrancy. This was documented in the emergency room. When it occurred she had a feeling of presyncope but did not lose consciousness. He states that she had multiple episodes in the emergency room. She did not appreciate any palpitations. Recently the patient has had problems with nausea and vomiting and feeling poorly. She was started on an antibiotic and she had worsening nausea and vomiting. Had some vertigo. Chest CT scan suggested a left lower lobe pneumonia. Currently the patient denies chest pain, shortness of breath, palpitations, or dizziness. Objective SCHEDULED MEDICATIONS: cefTRIAXone, 2 g, AT BEDTIME aspirin, 81 mg, DAILY heparin, 5,000 Units, q [address], 40 mg, DAILY (6 AM) rosuvastatin, 20 mg, AT BEDTIME busPIRone, 5 mg, BID amLODIPine, 10 mg, DAILY lisinopril, 5 mg, DAILY metoprolol succinate ER, 50 mg, DAILY IV MEDICATIONS: amiodarone, Last Rate: 1 mg/min (08/17/24 1400) PRN MEDICATIONS: ECHO WITH AGITATED SALINE CONTRAST, , Once AND sodium chloride 0.9 % (flush), 2-10 mL, DIRECTED PRN AND perflutren lipid microspheres, 1.3 mL, DIRECTED PRN guaiFENesin, 200 mg, q 4 H PRN NaCl 0.9%, 20 mL, PRN nitroglycerin sublingual, 0.4 mg, q 5 MIN PRN atropine, 0.4 mg, PRN(NO DISPENSE) morphine, 4 mg, q 3 H PRN ondansetron (PF), 4 mg, q 6 H PRN [COMPLETED] CT CHEST W IVCON PE, , Once AND iv contrast, , DIRECTED PRN levalbuterol, 1.25 mg, q 6 H PRN benzonatate, 200 mg, TID PRN PHYSICAL EXAM: 08/17/24 1600 08/17/24 1700 08/17/24 1800 08/17/24 1900 BP: 154/90 142/70 156/67 144/67 Pulse: 76 75 73 74 Resp: 22 16 18 20 Temp: 37.1 ?C (98.7 ?F) TempSrc: Oral SpO2: 98% 95% 94% 97% Weight: Height: Temp (24hrs), Av ?C (98.6 ?F), Min:36.7 ?C (98.1 ?F), Max:37.1 ?C (98.8 ?F) Physical Exam Vitals reviewed. Constitutional: Appearance: Normal appearance. Neck: Vascular: No carotid bruit or JVD. Cardiovascular: Rate and Rhythm: Normal rate and regular rhythm. Pulses: Carotid pulses are 2+ on the right side and 2+ on the left side. Heart sounds: Normal heart sounds. No murmur heard. No systolic murmur is present. No diastolic murmur is present. No friction rub. No gallop. No S3 or S4 sounds. Pulmonary: Effort: No respiratory distress. Breath sounds: Normal breath sounds. No stridor. No wheezing, rhonchi or rales. Chest: Chest wall: No tenderness. Abdominal: General: Abdomen is flat. Bowel sounds are normal. There is no distension. Palpations: Abdomen is soft. Tenderness: There is no abdominal tenderness. There is no guarding. Musculoskeletal: Right lower leg: No edema. Left lower leg: No edema. Skin: Findings: No rash. Neurological: Mental Status: She is alert. DATA: Diagnostic tests reviewed for today's visit: Most recent labs Recent Labs 08/17/24 0403 HB 12.0 HCT 33.6* MCV 84.0 WBC 14.60* PLT 244 Recent Labs 08/17/24 1126 08/17/24 0403 08/16/24 2256 NA -- 132* 132* K 3.6 3.3* 3.8 CHLOR -- 100 100 CO2 -- 18* 21 BUN -- 11 13 CREAT -- 0.67 0.75 GLUC -- 129* 128* MG -- 1.7 1.7 Triglyceride 77 08/17/2024 Cholesterol, Total 111 08/17/2024 HDL Cholesterol 40 08/17/2024 LDL Chol, [place] 56 08/17/2024 Hemoglobin A1C 5.5 08/14/2024 TSH 2.251 08/16/2024 TELEMETRIC MONITORING: Normal sinus rhythm with a normal MO interval and narrow QRS complex. The patient has premature atrial contractions. There was 110 beat episode of ectopic atrial tachycardia 165 bpm without aberrancy. EKG: EKG at [facility] 08/16/2024 shows an atypical atrial flutter with a ventricular rate of 188 bpm. There was some variability in the RR interval with a long-short interval followed by right bundle branch aberrancy for 13 beats at a rate the same as the flutter rate. ECHO: TRANSTHORACIC ECHOCARDIOGRAM [facility] FEBRUARY 2023: Patient had an echocardiogram done after she suffered a cerebrovascular accident. We do not have a copy of the report. However the patient states that she was told that the echocardiogram was normal. STRESS TEST: STRESS ECHO [facility] JUNE 14, 2010: The patient exercised for 6 minutes to a heart rate of 153 bpm (93% of her age-predicted maximal). The patient had a baseline ejection fraction of 60% with trivial mitral and trivial tricuspid regurgitation. The (more content not included)... [facility] 08-17-2024 Note HNO ID: [id number] Author: RADHA JACINTO RT(R) Service: Radiology Author Type: Technologist Type: Progress Notes Filed: 08/17/2024 15:14 Note Text: Radiology Service Progress Note PATIENT NAME: Jessica Lazcano DATE OF SERVICE: August 17, 2024 TIME: 3:13 PM PATIENT IDENTITY VERIFICATION COMPLETED USING TWO (2) IDENTIFIERS: Name and Date of confirmed by patient verbally and Name and Date of confirmed by identification band. FALL SCREENING: Has the patient had 2 falls in the last year or 1 fall with injury or currently using an Ambulatory Assistive Device (Walker, Cane, Wheelchair, Crutches, etc.)? Yes, Patient High Risk for Falls What interventions were put in place to prevent falls during this visit? [place] Falls Risk Wristband Applied PATIENT GENDER DATA: Female. status: : No status: NO. PATIENT RELEVANT IMPLANT DATA REVIEWED: Not Applicable PATIENT PRESENTS WITH AN IMPLANTABLE OR ATTACHED CLINICAL MEDICAL ASSISTANT: No RADIOLOGY DEPARTMENT: Ultrasound PERIPHERAL IV DATA: Not applicable SIGNED BY: RT Arline(R) August 17, 2024 3:13 PM [facility] 08-17-2024 Note HNO ID: [id number] Author: PRESTON MONTEZ MD Service: Hospital Medicine Author Type: Physician Type: Progress Notes Filed: 08/17/2024 11:16 Note Text: INPATIENT PROGRESS NOTE SERVICE DATE: 08/17/2024 HOSPITAL COURSE: Subjective CHIEF COMPLAINT: Weakness INTERVAL HPI: Seen and examined. Complains of cough and shortness of breath. No nausea or vomiting or fever or chills. No palpitation or chest pain. Current Outpatient Medications Medication Instructions alendronate (FOSAMAX) 70 mg, ORAL, 1 TIME WEEKLY, Take with a full glass of water, on an empty stomach; do NOT lie down for 30minutes. amLODIPine (NORVASC) 10 mg, ORAL, DAILY aspirin, enteric coated (ASPIRIN, ENTERIC COATED) 81 mg, ORAL, DAILY busPIRone (BUSPAR) 5 mg, ORAL, 2 TIMES DAILY diphenhydrAMINE (BENADRYL) 25 mg, ORAL, EVERY 6 HOURS NEEDED lisinopril (ZESTRIL) 5 mg, ORAL, DAILY metoprolol succinate ER (TOPROL XL) 50 mg, ORAL, DAILY nitrofurantoin monohydrate and macrocrystal (MACROBID) 100 mg capsule 100 mg, ORAL, 2 TIMES DAILY W/MEALS rosuvastatin (CRESTOR) 20 mg, ORAL, AT BEDTIME traZODone (DESYREL) 50 mg, ORAL, AT BEDTIME Current Facility-Administered Medications Medication Dose Route Frequency NaCl 0.9% iv flush bag 20 mL INTRAVENOUS PRN aspirin 81 mg chewable tab(s) 81 mg ORAL DAILY nitroglycerin sublingual 0.4 mg tab(s) (NITROQUICK) 0.4 mg SUBLINGUAL q 5 MIN PRN atropine 0.4 mg injection 0.4 mg INTRAVENOUS PRN(NO DISPENSE) morphine 4 mg injection 4 mg INTRAVENOUS q 3 H PRN ondansetron (PF) 4 mg injection (ZOFRAN) 4 mg INTRAVENOUS q 6 H PRN heparin 5,000 Units injection 5,000 Units SUBCUTANEOUS q 12 H amiodarone iv infusion 360 mg in D5W 200 mL (NEXTERONE) 1 mg/min INTRAVENOUS CONTINUOUS iv contrast (radiology procedure) INTRAVENOUS DIRECTED PRN levalbuterol 1.25 mg nebulizer solution (XOPENEX) 1.25 mg INHALATION q 6 H PRN benzonatate 200 mg cap(s) (TESSALON PERLE) 200 mg ORAL TID PRN pantoprazole DR 40 mg tab(s) (PROTONIX) 40 mg ORAL DAILY (6 AM) rosuvastatin 20 mg tab(s) (CRESTOR) 20 mg ORAL AT BEDTIME busPIRone 5 mg tab(s) (BUSPAR) 5 mg ORAL BID amLODIPine 10 mg tab(s) (NORVASC) 10 mg ORAL DAILY lisinopril 5 mg tab(s) (ZESTRIL) 5 mg ORAL DAILY metoprolol succinate ER 50 mg tab(s) (TOPROL XL) 50 mg ORAL DAILY sodium chloride 0.9 % (flush) 2-10 mL (BD POSIFLUSH) 2-10 mL INTRAVENOUS DIRECTED PRN And perflutren lipid microspheres 1.1 mg/mL 1.3 mL injection (DEFINITY) 1.3 mL INTRAVENOUS DIRECTED PRN guaiFENesin 200 mg oral liquid (ROBITUSSIN) 200 mg ORAL q 4 H PRN cefTRIAXone 2 g in D5W 100 mL Vial-Bag (ROCEPHIN) 2 g INTRAVENOUS AT BEDTIME Objective PHYSICAL EXAM: General: Patient is alert and oriented x3 and is in no acute respiratory distress HEENT: Normal cephalic, atraumatic, PERRLA, TM's normal, Nose clear, Mouth normal Neck: Negative hepatojugular reflux or jugular venous distention, negative carotid bruit. Lungs: Left-sided crackles Cardiac: Regular rhythm and rate, S1-S2 within normal limits, no murmurs, gallops were appreciated, no rubs. Abdomen: Soft, nontender, nondistended, no HSM detected, bowel sounds are active. Extremities: [No edema, cyanosis, or clubbing. Skin: No rashes or breakdown. Musculoskeletal: normal MS exam, moves all extremities, DTR's normal Lymphatic: Negative cervical, supra-clavicular, groin lymphadenopathy. Neurologic: Cranial nerves from II-XII intact grossly, no focal deficits. Glucose (mg/dL) Date Value 08/17/2024 129 12/11/2012 98 Potassium (mmol/L) Date Value 08/17/2024 3.3 12/11/2012 4.0 Sodium (mmol/L) Date Value 08/17/2024 132 12/11/2012 143 Chloride (mmol/L) Date Value 08/17/2024 100 12/11/2012 105 CO2 (mmol/L) Date Value 08/17/2024 18 12/11/2012 24 Creatinine (mg/dL) Date Value 08/17/2024 0.67 12/11/2012 0.72 BUN (mg/dL) Date Value 08/17/2024 11 12/11/2012 18 Anion Gap (mmol/L) Date Value 08/17/2024 14 12/11/2012 14 Calcium (mg/dL) Date Value 12/11/2012 10.1 Calcium, Total (mg/dL) Date Value 08/17/2024 8.3 Estimated Creatinine Clearance: 88.3 mL/min (based on SCr of 0.67 mg/dL). CBC with diff: WBC 14.60 08/17/2024 RBC 4.00 08/17/2024 Hemoglobin 12.0 08/17/2024 Hematocrit 33.6 08/17/2024 MCV 84.0 08/17/2024 MCH 30.0 08/17/2024 MCHC 35.7 08/17/2024 RDW-CV 12.1 08/17/2024 Platelet Count 244 08/17/2024 MPV 10.9 08/17/2024 Neutrophils % 74.8 03/22/2024 Lymphocytes % 15.5 03/22/2024 Monocytes % 9.3 03/22/2024 Eosinophils % 0.0 03/22/2024 Basophils % 0.1 03/22/2024 Abs Neut 8.23 03/22/2024 Abs [place] 1.02 03/22/2024 Abs Eosin <0.03 03/22/2024 Abs Baso <0.03 03/22/2024 BP 152/74 Pulse 76 Temp (Src) 98.8 (Oral) Resp 18 Ht 5' 6 (1.68m) Wt 203 lb 14.8 oz (92.5kg) SpO2 98% BMI 32.93 kg/(m2). O2 Therapy: Nasal Cannula, Liters: 2 DATA: Diagnostic tests reviewed for today's visit: Most recent labs and imaging results. Assessment/Plan Principal Prob (more content not included)... [facility] 08-16-2024 Telephone encounter Note Received transfer center request from [facility] 08/16: Dx: near syncope, NSVT, Afib 73 yo F with hx of CVA without neuro deficits who presented to OSH with near syncope. Tele revealed NSVT vs A-fib. Pt was evaluated by OSH fumigator and sterilizer, plan for admission and possible LHC. Pt was also started on amiodarone gtt. Pt is accepted to [facility]. Kenneth Raymond MD 6:36 PM [facility] Work Phone: 08-16-2024 Miscellaneous Notes Received transfer center request from [facility] 08/16: Dx: near syncope, NSVT, Afib 73 yo F with hx of CVA without neuro deficits who presented to OSH with near syncope. Tele revealed NSVT vs A-fib. Pt was evaluated by OSH fumigator and sterilizer, plan for admission and possible LHC. Pt was also started on amiodarone gtt. Pt is accepted to [facility]. Kenneth Raymond MD 6:36 PM documented in this encounter [facility] 08-14-2024 Telephone encounter Note Patient notified of provider's instructions. Patient verbalizes understanding. Cintia Elizondo RN [facility] 08-14-2024 Miscellaneous Notes Patient notified of provider's instructions. Patient verbalizes understanding. Cintia Elizondo RN Lab services telephoned, unable to do add on for culture. Patient telephoned and made aware of ATB sent over, picking up now. Patient retelephoned back to make aware she will need to come back in for the urine culture. No answer, will call back. Elisabeth Solares LPN Patient's UA is positive for signs of UTI. Will order urine culture and start her on macrobid BID x 7 days. Push PO fluids, will call with results of culture. May need to come in to give new sample if lab cannot run culture on current sample. documented in this encounter [facility] 08-14-2024 Telephone encounter Note Lab services telephoned, unable to do add on for culture. Patient telephoned and made aware of ATB sent over, picking up now. Patient retelephoned back to make aware she will need to come back in for the urine culture. No answer, will call back. Elisabeth Solares LPN [facility] 08-14-2024 Telephone encounter Note Patient's UA is positive for signs of UTI. Will order urine culture and start her on macrobid BID x 7 days. Push PO fluids, will call with results of culture. May need to come in to give new sample if lab cannot run culture on current sample. [facility] 08-12-2024 Telephone encounter Note Prescription Refill Information The patient has been identified by name and date of : Yes Caregiver verified no other encounters exist for this prescription request: Yes Caregiver confirmed with patient/requestor that no other refills are due, in the near future, with this provider at this time: Yes The last office visit in the department: 06/24/24 Does the patient have a future office visit with this provider/department: Yes 12/25/24 Requested Prescriptions Pending Prescriptions Disp Refills traZODone (DESYREL) 50 mg tablet 90 tablet 1 Sig: Take 1 tablet by mouth daily at bedtime. Nereida Pabon LPN August 12, 2024 1:17 PM [facility] 08-12-2024 Miscellaneous Notes Prescription Refill Information The patient has been identified by name and date of : Yes Caregiver verified no other encounters exist for this prescription request: Yes Caregiver confirmed with patient/requestor that no other refills are due, in the near future, with this provider at this time: Yes The last office visit in the department: 06/24/24 Does the patient have a future office visit with this provider/department: Yes 12/25/24 Requested Prescriptions Pending Prescriptions Disp Refills traZODone (DESYREL) 50 mg tablet 90 tablet 1 Sig: Take 1 tablet by mouth daily at bedtime. Nereida Pabon LPN August 12, 2024 1:17 PM documented in this encounter [facility] 06-24-2024 Note HNO ID: [id number] Author: CECI VERA MD Service: ? Author Type: Physician Type: Progress Notes Filed: 06/24/2024 13:23 Note Text: Chief Complaint Patient presents with: Follow Up: 3 month HPI Jessica Lazcano is a 73 year old female who presents here today for Above Complaints. Patient with PATITO on CMP about 3 months ago and patient is overdue for repeat labs, UA and renal US. Patient has been adhering to low sodium diet and avoiding NSAIDs. BP well controlled on current regimen. History of CVA 02/2023 without recurrent symptoms. Compliant with ASA, statin, and HTN control. Patient completed PT in August for right sided weakness and she states that the weakness has improved significantly and continues to improve. Able to complete ADLs and is quilting still, but not as fast as she used to. Patient evaluated for chronic right shoulder pain at in March with xray showing degenerative changes. Referred to PT, but could not afford it. Working on some home exercises and pain and ROM is improving. Patient has not completed HSAT for EVA concerns. States she thinks testing is covered, but a CPAP she may have to cover half of it. Notes she gets intermittent swelling in her right leg since her stroke. Does not have compression stockings. Due for colon cancer screening. Refusing vaccinations. Past medical history, appointments, medications, allergies reviewed. Previous Medical History PAST MEDICAL HISTORY No date: Adjustment disorder with depressed mood No date: Anxiety 05/30/2023: Carotid stenosis, bilateral Comment: 40-59% 02/2023: CVA (cerebral vascular accident) (HCC) No date: History of endometriosis 10/15/2014: History of melanoma No date: HLD (hyperlipidemia) No date: HTN (hypertension) 06/12/2023: Osteoporosis No date: Other and unspecified hyperlipidemia No date: Overweight (BMI 25.0-29.9) No date: Right sided weakness Previous Surgical History PAST SURGICAL HISTORY 1998: APPENDECTOMY No date: SECTION HX No date: PAST SURGICAL HISTORY OF Comment: exlporatory laparotomy No date: STRESS ECHO Family History FAMILY HISTORY Problem Relation Age of Onset Cancer Father lung cancer Diabetes Mother Cancer Mother lung cancer Heart Brother Heart Brother Cancer Sister cervical Heart Sister Diabetes Maternal Grandfather Heart Attack Maternal Grandfather Heart disease Maternal Grandmother Cancer Paternal Grandfather stomach Patient Allergies ALLERGIES Allergen Reactions Lipitor [Atorvastat* Hives Current Medications Current Outpatient Medications on File Prior to Visit Medication Sig alendronate (FOSAMAX) 70 mg tablet Take 1 tablet by mouth one time a week. Take with a full glass of water, on an empty stomach; do NOT lie down for 30minutes. amLODIPine (NORVASC) 10 mg tablet Take 1 tablet by mouth once daily. lisinopril (ZESTRIL) 5 mg tablet Take 1 tablet by mouth once daily. metoprolol succinate ER (TOPROL XL) 50 mg 24 hr tablet Take 1 tablet by mouth once daily. rosuvastatin (CRESTOR) 20 mg tablet Take 1 tablet by mouth daily at bedtime. busPIRone (BUSPAR) 5 mg tablet Take 1 tablet by mouth two times a day. traZODone (DESYREL) 50 mg tablet Take 1 tablet by mouth daily at bedtime. diphenhydrAMINE (BENADRYL) 25 mg capsule Take 25 mg by mouth every 6 hours as needed. aspirin, enteric coated (ASPIRIN, ENTERIC COATED) 81 mg EC tablet Take 1 tablet by mouth once daily. No current facility-administered medications on file prior to visit. Social History Social History Tobacco Use Smoking status: Never Smokeless tobacco: Never Substance Use Topics Alcohol use: Not Currently Comment: less than monthly Drug use: No Review of Symptoms REVIEW OF SYSTEMS GENERAL: No weight loss, malaise or fevers RESPIRATORY: Negative for cough, hemoptysis, wheezing, COPD, dyspnea or shortness of breath CARDIOVASCULAR: Negative for chest pain, leg swelling, hypertension, CHF or palpitations GI: No nausea, vomiting, or diarrhea SKIN: Negative for lesions, rash, and itching EXAM: BP 118/66 Pulse 91 Resp 16 Wt 73.9 kg (162 lb 14.7 oz) SpO2 98% BMI 30.28 kg/m? General Appearance: Well appearing, alert, in no acute distress, well-hydrated, well nourished.. Skin: Skin color, texture, turgor normal, no suspicious rashes or lesions. Lungs: Lungs clear to auscultation. No wheezing, rhonchi, rales.. Heart: RRR without murmur, gallop, or rubs. No ectopy. Abdomen: Normal abdominal exam, Abdomen soft, non-tender. Bowel sounds normal. No masses, organomegaly. Extremities: No deformities, edema, skin discoloration, clubbing or cyanosis. Good capillary refill. . Shoulder: Location: Right. Redness: No. Warmth: No. Tenderness to palpation: No. Swelling: No. Range of motion: Limited abduction and flexion to 90 degrees. Internal rotation and external rotation limited. Empty can test: Posit (more content not included)... [facility] 06-24-2024 History of Presen t illness Narrative Chief Complaint Patient presents with: Follow Up: 3 month HPI Jessica Lazcano is a 73 year old female who presents here today for Above Complaints. Patient with PATITO on CMP about 3 months ago and patient is overdue for repeat labs, UA and renal US. Patient has been adhering to low sodium diet and avoiding NSAIDs. BP well controlled on current regimen. History of CVA 02/2023 without recurrent symptoms. Compliant with ASA, statin, and HTN control. Patient completed PT in August for right sided weakness and she states that the weakness has improved significantly and continues to improve. Able to complete ADLs and is quilting still, but not as fast as she used to. Patient evaluated for chronic right shoulder pain at in March with xray showing degenerative changes. Referred to PT, but could not afford it. Working on some home exercises and pain and ROM is improving. Patient has not completed HSAT for EVA concerns. States she thinks testing is covered, but a CPAP she may have to cover half of it. Notes she gets intermittent swelling in her right leg since her stroke. Does not have compression stockings. Due for colon cancer screening. Refusing vaccinations. Past medical history, appointments, medications, allergies reviewed. Previous Medical History PAST MEDICAL HISTORY No date: Adjustment disorder with depressed mood No date: Anxiety 05/30/2023: Carotid stenosis, bilateral Comment: 40-59% 02/2023: CVA (cerebral vascular accident) (HCC) No date: History of endometriosis 10/15/2014: History of melanoma No date: HLD (hyperlipidemia) No date: HTN (hypertension) 06/12/2023: Osteoporosis No date: Other and unspecified hyperlipidemia No date: Overweight (BMI 25.0-29.9) No date: Right sided weakness Previous Surgical History PAST SURGICAL HISTORY 1998: APPENDECTOMY No date: SECTION HX No date: PAST SURGICAL HISTORY OF Comment: exlporatory laparotomy No date: STRESS ECHO Family History FAMILY HISTORY Problem Relation Age of Onset Cancer Father lung cancer Diabetes Mother Cancer Mother lung cancer Heart Brother Heart Brother Cancer Sister cervical Heart Sister Diabetes Maternal Grandfather Heart Attack Maternal Grandfather Heart disease Maternal Grandmother Cancer Paternal Grandfather stomach Patient Allergies ALLERGIES Allergen Reactions Lipitor [Atorvastat* Hives Current Medications Current Outpatient Medications on File Prior to Visit Medication Sig alendronate (FOSAMAX) 70 mg tablet Take 1 tablet by mouth one time a week. Take with a full glass of water, on an empty stomach; do NOT lie down for 30minutes. amLODIPine (NORVASC) 10 mg tablet Take 1 tablet by mouth once daily. lisinopril (ZESTRIL) 5 mg tablet Take 1 tablet by mouth once daily. metoprolol succinate ER (TOPROL XL) 50 mg 24 hr tablet Take 1 tablet by mouth once daily. rosuvastatin (CRESTOR) 20 mg tablet Take 1 tablet by mouth daily at bedtime. busPIRone (BUSPAR) 5 mg tablet Take 1 tablet by mouth two times a day. traZODone (DESYREL) 50 mg tablet Take 1 tablet by mouth daily at bedtime. diphenhydrAMINE (BENADRYL) 25 mg capsule Take 25 mg by mouth every 6 hours as needed. aspirin, enteric coated (ASPIRIN, ENTERIC COATED) 81 mg EC tablet Take 1 tablet by mouth once daily. No current facility-administered medications on file prior to visit. Social History Social History Tobacco Use Smoking status: Never Smokeless tobacco: Never Substance Use Topics Alcohol use: Not Currently Comment: less than monthly Drug use: No Review of Symptoms REVIEW OF SYSTEMS GENERAL: No weight loss, malaise or fevers RESPIRATORY: Negative for cough, hemoptysis, wheezing, COPD, dyspnea or shortness of breath CARDIOVASCULAR: Negative for chest pain, leg swelling, hypertension, CHF or palpitations GI: No nausea, vomiting, or diarrhea SKIN: Negative for lesions, rash, and itching EXAM: BP 118/66 Pulse 91 Resp 16 Wt 73.9 kg (162 lb 14.7 oz) SpO2 98% BMI 30.28 kg/m General Appearance: Well appearing, alert, in no acute distress, well-hydrated, well nourished.. Skin: Skin color, texture, turgor normal, no suspicious rashes or lesions. Lungs: Lungs clear to auscultation. No wheezing, rhonchi, rales.. Heart: RRR without murmur, gallop, or rubs. No ectopy. Abdomen: Normal abdominal exam, Abdomen soft, non-tender. Bowel sounds normal. No masses, organomegaly. Extremities: No deformities, edema, skin discoloration, clubbing or cyanosis. Good capillary refill. . Shoulder: Location: Right. Redness: No. Warmth: No. Tenderness to palpation: No. Swelling: No. Range of motion: Limited abduction and flexion to 90 degrees. Internal rotation and external rotation limited. Empty can test: Positive [place]: positive. Health Maintenance List Hepatitis C Screening Never done Shingrix Vaccine(1 of 2) Never done RSV Vaccine(1 - 1-dose 60+ series) Never done Colorectal Cancer Screening due on 04/11/2014 DTaP,Tdap,Td Vaccine(2 - Td or Tdap) due on 08/01/2017 Pneumococcal Vaccine: 65+(1 of 1 - PCV) Never done Covid-19 Vaccine( - 2022- season) Never done Advance Directive Discussion due on 11/20/2023 Mammogram Screening due on 05/18/2024 Influenza Vaccine(1) due on 07/21/2024 Annual PCP Team Chronic Disease Visit due on 03/22/2025 BP Controlled (<130/80) due on 03/22/2025 Diabetes Screening due on 04/24/2027 Lipid Screening due on 03/22/2029 Bone Density Screening Completed Data reviewed Latest Ref Rng 10/24/2023 03/22/2024 04/24/2024 WBC 3.70 - 11.00 k/uL 10.99 RBC 3.90 - 5.20 m/uL 4.30 Hemoglobin 11.5 - 15.5 g/dL 12.5 Hematocrit 36.0 - 46.0 % 38.6 MCV 80.0 - 100.0 fL 89.8 MCH 26.0 - 34.0 pg 29.1 MCHC 30.5 - 36.0 g/dL 32.4 RDW-CV 11.5 - 15.0 % 12.4 Platelet Count 150 - 400 k/uL 352 MPV 9.0 - 12.7 fL 11.3 Neut% % 74.8 Abs Neut (ANC) 1.45 - 7.50 k/uL 8.23 (H) Lymph% % 15.5 Abs Lymph 1.00 - 4.00 k/uL 1.70 [place]% % 9.3 Abs [place] <0.87 k/uL 1.02 (H) Eosin% % 0.0 Abs Eosin <0.46 k/uL <0.03 Baso% % 0.1 Abs Baso <0.11 k/uL <0.03 Immature Gran % % 0.3 IMMATURE GRANS (ABS) <0.10 k/uL 0.03 NRBC /100 WBC 0.0 Absolute nRBC <0.01 k/uL <0.01 DTYPE Auto Protein, Total 6.3 - 8.0 g/dL 7.1 7.4 7.3 Albumin 3.9 - 4.9 g/dL 4.7 4.7 4.7 Calcium 8.5 - 10.2 mg/dL 9.5 10.3 (H) 10.1 Bilirubin, Total 0.2 - 1.3 mg/dL 0.3 0.4 0.4 Alkaline Phosphatase 34 - 123 U/L 44 44 45 AST 13 - 35 U/L 15 18 17 ALT 7 - 38 U/L 10 15 10 Glucose 74 - 99 mg/dL 102 (H) 139 (H) 143 (H) BUN 7 - 21 mg/dL 12 19 14 Creatinine 0.58 - 0.96 mg/dL 0.82 1.19 (H) 1.13 (H) Sodium 136 - 144 mmol/L 141 138 138 Potassium 3.7 - 5.1 mmol/L 4.0 4.7 4.7 Chloride 98 - 107 mmol/L 106 (H) 102 102 CO2 22 - 30 mmol/L 23 23 22 Anion Gap 8 - 15 mmol/L 12 13 14 eGFR >=60 mL/min/1.73m 77 49 (L) 52 (L) Cholesterol, Total <200 mg/dL 127 Triglyceride <150 mg/dL 64 HDL Cholesterol >39 mg/dL 53 Non HDL Cholesterol <130 mg/dL 74 Fasting Time hrs 14 VLDL Cholesterol <30 mg/dL 13 TC:HDL Ratio <5.10 2.40 LDL Cholesterol <100 mg/dL 61 LDL:HDL Ratio <2.54 1.15 Total Cholesterol, Nonfasting <200 mg/dL 145 Triglycerides, Nonfasting <150 mg/dL 89 HDL Cholesterol, Nonfasting >39 mg/dL 59 LDL Cholesterol, Nonfasting <100 mg/dL 68 Non HDL Cholesterol, Nonfasting <130 mg/dL 86 VLDL Cholesterol, Nonfasting <30 mg/dL 18 Total Chol/HDL Ratio, Nonfasting <5.10 mg/dL 2.46 LDL/HDL Ratio, Nonfasting <2.54 mg/dL 1.15 Legend: (H) High (L) Low ASSESSMENT/PLAN: 1. Hypertension, essential - ICD9: 401.9, ICD10: I10 (primary diagnosis) - Controlled - Continue current medications - Recommend home blood pressure monitoring, to bring results to next visit - Encouraged sodium restriction, DASH or Mediterranean diet - Recommend regular aerobic exercise 2. Hyperlipidemia, mixed - ICD9: 272.2, ICD10: E78.2 - Controlled - Continue current medications - Counseled on healthy diet and regular exercise 3. Cerebrovascular accident (CVA), unspecified mechanism (HCC) - ICD9: 434.91, ICD10: I63.9 No recurrent symptoms on secondary stroke prevention. Continue ASA, statin, and BP control. 4. PATITO (acute kidney injury) (HCC) - ICD9: 584.9, ICD10: N17.9 Due for repeat labs. Recommend low sodium diet <2,000 mg per day, avoidance of NSAIDs, and increased water intake. - COMPREHENSIVE METABOLIC PANEL - HEMOGLOBIN A1C - URINALYSIS, WITH MICROSCOPIC - ALBUMIN/CREATININE RATIO, URINE 5. Right hemiparesis (HCC) - ICD9: 342.90, ICD10: G81.91 Improving with home exercise. 6. Right leg swelling - ICD9: 729.81, ICD10: M79.89 Intermittent swelling 2/2 history of stroke. No swelling today on exam. Discussed compression stockings daily. - COMPRESSION STOCKINGS 7. Chronic right shoulder pain - ICD9: 719.41, 338.29, ICD10: M25.511, G89.29 Improving with home exercises. Cannot afford PT. Given exercises for home and will call if worsening. 8. Limited range of motion (ROM) of shoulder - ICD9: 719.51, ICD10: M25.619 Likely 2/2 frozen shoulder. Improving with home exercises. Cannot afford PT. Given exercises for home and will call if worsening. 9. Daytime somnolence - ICD9: 780.54, ICD10: R40.0 Still needs to complete HSAT to evaluate for EVA. Discussed diet and exercise to promote weight loss. 10. Class 1 obesity due to excess calories with body mass index (BMI) of 30.0 to 30.9 in adult, unspecified whether serious comorbidity present - ICD9: 278.00, V85.30, ICD10: E66.09, Z68.30 Stable - Behavioral intervention 11. Screening for colon cancer - ICD9: V76.51, ICD10: Z12.11 - IMMUNOCHEMICAL FECAL OCCULT BLOOD TEST Ceci Vera MD documented in this encounter [facility] 04-25-2024 Telephone encounter Note Please contact patient to schedule US. Pt notified and verbalized understanding of results. A1C not able to be added to CMP - she has been made aware of additional need for lab draw and UA. [facility] 04-25-2024 Miscellaneous Notes Please contact patient to schedule US. Pt notified and verbalized understanding of results. A1C not able to be added to CMP - she has been made aware of additional need for lab draw and UA. Repeat labs still show acute kidney injury which is only mildly improved. Recommend checking UA and kidney US for further workup. Recommend low sodium diet <2,000 mg per day, avoidance of NSAIDs, and increased water intake. Sugar still high in the 140's. Please see if lab can add on A1c. documented in this encounter [facility] 04-25-2024 Telephone encounter Note Repeat labs still show acute kidney injury which is only mildly improved. Recommend checking UA and kidney US for further workup. Recommend low sodium diet <2,000 mg per day, avoidance of NSAIDs, and increased water intake. Sugar still high in the 140's. Please see if lab can add on A1c. [facility] 04-01-2024 Telephone encounter Note Patient has been identified by name and date of : Yes, Provider Ceci Vera MD Date April 01, 2024 Time 8:53 AM Patient phones for refill(s): Requested Prescriptions Pending Prescriptions Disp Refills lisinopril (ZESTRIL) 5 mg tablet 90 tablet 1 Sig: Take 1 tablet by mouth once daily. metoprolol succinate ER (TOPROL XL) 50 mg 24 hr tablet 90 tablet 1 Sig: Take 1 tablet by mouth once daily. rosuvastatin (CRESTOR) 20 mg tablet 90 tablet 1 Sig: Take 1 tablet by mouth daily at bedtime. busPIRone (BUSPAR) 5 mg tablet 180 tablet 1 Sig: Take 1 tablet by mouth two times a day. Date of last office visit in primary care: 03/22/2024 Date of next office visit in primary care: 06/24/2024 Please advise. Thank you. Ramandeep Hernandez MA. [facility] 04-01-2024 Miscellaneous Notes Patient has been identified by name and date of : Yes, Provider Ceci Vera MD Date April 01, 2024 Time 8:53 AM Patient phones for refill(s): Requested Prescriptions Pending Prescriptions Disp Refills lisinopril (ZESTRIL) 5 mg tablet 90 tablet 1 Sig: Take 1 tablet by mouth once daily. metoprolol succinate ER (TOPROL XL) 50 mg 24 hr tablet 90 tablet 1 Sig: Take 1 tablet by mouth once daily. rosuvastatin (CRESTOR) 20 mg tablet 90 tablet 1 Sig: Take 1 tablet by mouth daily at bedtime. busPIRone (BUSPAR) 5 mg tablet 180 tablet 1 Sig: Take 1 tablet by mouth two times a day. Date of last office visit in primary care: 03/22/2024 Date of next office visit in primary care: 06/24/2024 Please advise. Thank you. Ramandeep Hernandez MA. documented in this encounter [facility] 04-01-2024 Telephone encounter Note Patient has been identified by name and date of : Yes, Provider Ceci Vera MD Date April 01, 2024 Time 8:50 AM Patient phones for refill(s): Requested Prescriptions Pending Prescriptions Disp Refills amLODIPine (NORVASC) 10 mg tablet 90 tablet 1 Sig: Take 1 tablet by mouth once daily. Date of last office visit in primary care: 03/22/2024 Date of next office visit in primary care: 06/24/24 Please advise. Thank you. Ramandeep Hernandez MA. [facility] 04-01-2024 Miscellaneous Notes Patient has been identified by name and date of : Yes, Provider Ceci Vera MD Date April 01, 2024 Time 8:50 AM Patient phones for refill(s): Requested Prescriptions Pending Prescriptions Disp Refills amLODIPine (NORVASC) 10 mg tablet 90 tablet 1 Sig: Take 1 tablet by mouth once daily. Date of last office visit in primary care: 03/22/2024 Date of next office visit in primary care: 06/24/24 Please advise. Thank you. Ramandeep Hernandez MA. documented in this encounter [facility] 03-26-2024 Telephone encounter Note Phoned patient and went over results, notes from Dr Vera with understanding. [facility] 03-26-2024 Miscellaneous Notes Phoned patient and went over results, notes from Dr Vera with understanding. ----- Message from Ceci Vera MD sent at 03/26/2024 8:06 AM EDT ----- Xray of the right shoulder shows mild arthritis changes. No fracture or dislocation. F/u with MRI and PT as ordered. documented in this encounter [facility] 03-26-2024 Telephone encounter Note ----- Message from Ceci Vera MD sent at 03/26/2024 8:06 AM EDT ----- Xray of the right shoulder shows mild arthritis changes. No fracture or dislocation. F/u with MRI and PT as ordered. [facility] 03-25-2024 Telephone encounter Note TC to patient who verbalized understanding of below. No questions at this time. NOEL Gunter [facility] 03-25-2024 Miscellaneous Notes TC to patient who verbalized understanding of below. No questions at this time. NOEL Gunter Unremarkable labs aside from acute kidney injury. Recommend low sodium diet <2,000 mg per day, avoidance of NSAIDs, and increased water intake. Recheck kidney function in about 2-4 weeks. documented in this encounter [facility] 03-25-2024 Telephone encounter Note Unremarkable labs aside from acute kidney injury. Recommend low sodium diet <2,000 mg per day, avoidance of NSAIDs, and increased water intake. Recheck kidney function in about 2-4 weeks. [facility] 03-22-2024 History of Presen t illness Narrative Radiology Service Progress Note PATIENT NAME: Jessica Lazcano DATE OF SERVICE: March 22, 2024 TIME: 12:16 PM PATIENT IDENTITY VERIFICATION COMPLETED USING TWO (2) IDENTIFIERS: Name and Date of confirmed by patient verbally. FALL SCREENING: Has the patient had 2 falls in the last year or 1 fall with injury or currently using an Ambulatory Assistive Device (Walker, Cane, Wheelchair, Crutches, etc.)? No PATIENT GENDER DATA: Female. status: : No status: NO. PATIENT RELEVANT IMPLANT DATA REVIEWED: Not Applicable PATIENT PRESENTS WITH AN IMPLANTABLE OR ATTACHED CLINICAL MEDICAL ASSISTANT: No RADIOLOGY DEPARTMENT: General X-ray: Exam(s) Completed: Upper Extremity X-Ray(s): Shoulder, AP / TRUE AP / AXILLARY right PERIPHERAL IV DATA: Not applicable SIGNED BY: RT Brooks(R) March 22, 2024 12:16 PM documented in this encounter [facility] 03-22-2024 History of Presen t illness Narrative Chief Complaint Patient presents with: Follow Up: 6 month HPI Jessica Lazcano is a 73 year old female who presents here today for Above Complaints. History of CVA 1 year ago without recurrent symptoms. Compliant with with ASA, BP medications, and statin. Using cane for ambulation outside of the home and feels steady with use. Needs rx for handicap placrohit today. Has not seen neurology since July of last year. Overdue for repeat carotid US which was supposed to be done in November. Patient completed PT in August for right sided weakness and she states that the weakness has improved significantly. Complaining today of right shoulder pain and limited ROM which has been persistent for the last year. Located on the outside of her shoulder. Described as intermittent sharp pain. Exacerbated with raising her arm above her head, reaching behind her body. Treating with HEP from her stroke. Admtis to limited ROM to about 90 degrees abduction. Denies bruising, erythema, swelling, weakness, fall/injury. Patient also states she is worried she may have sleep apnea. Admits to snoring and daytime somnolence. Had an episode where she woke up and felt like she couldn't breath about 2 months ago. BP well controlled today. Not checking BP at home. Denies hyper/hypotension symptoms. Needs order for mammogram for the end of April. Past medical history, appointments, medications, allergies reviewed. Previous Medical History PAST MEDICAL HISTORY Diagnosis Date Adjustment disorder with depressed mood Anxiety Carotid stenosis, bilateral 05/30/2023 40-59% CVA (cerebral vascular accident) (HCC) 02/2023 History of endometriosis History of melanoma 10/15/2014 HLD (hyperlipidemia) HTN (hypertension) Osteoporosis 06/12/2023 Other and unspecified hyperlipidemia Overweight (BMI 25.0-29.9) Right sided weakness Previous Surgical History PAST SURGICAL HISTORY Procedure Laterality Date APPENDECTOMY 1998 SECTION HX PAST SURGICAL HISTORY OF exlporatory laparotomy STRESS ECHO Family History FAMILY HISTORY Problem Relation Age of Onset Cancer Father lung cancer Diabetes Mother Cancer Mother lung cancer Heart Brother Heart Brother Cancer Sister cervical Heart Sister Diabetes Maternal Grandfather Heart Attack Maternal Grandfather Heart disease Maternal Grandmother Cancer Paternal Grandfather stomach Patient Allergies ALLERGIES Allergen Reactions Lipitor [Atorvastat* Hives Current Medications Current Outpatient Medications on File Prior to Visit Medication Sig traZODone (DESYREL) 50 mg tablet Take 1 tablet by mouth daily at bedtime. amLODIPine (NORVASC) 10 mg tablet Take 1 tablet by mouth once daily. lisinopril (ZESTRIL) 5 mg tablet Take 1 tablet by mouth once daily. metoprolol succinate ER (TOPROL XL) 50 mg 24 hr tablet Take 1 tablet by mouth once daily. rosuvastatin (CRESTOR) 20 mg tablet Take 1 tablet by mouth daily at bedtime. busPIRone (BUSPAR) 5 mg tablet Take 1 tablet by mouth two times a day. alendronate (FOSAMAX) 70 mg tablet Take 1 tablet by mouth one time a week. Take with a full glass of water, on an empty stomach; do NOT lie down for 30minutes. diphenhydrAMINE (BENADRYL) 25 mg capsule Take 25 mg by mouth every 6 hours as needed. aspirin, enteric coated (ASPIRIN, ENTERIC COATED) 81 mg EC tablet Take 1 tablet by mouth once daily. No current facility-administered medications on file prior to visit. Social History Social History Tobacco Use Smoking status: Never Smokeless tobacco: Never Substance Use Topics Alcohol use: Not Currently Comment: less than monthly Drug use: No Review of Symptoms REVIEW OF SYSTEMS GENERAL: No weight loss, malaise or fevers RESPIRATORY: Negative for cough, hemoptysis, wheezing, COPD, dyspnea or shortness of breath CARDIOVASCULAR: Negative for chest pain, leg swelling, hypertension, CHF or palpitations GI: No nausea, vomiting, or diarrhea SKIN: Negative for lesions, rash, and itching EXAM: BP 106/64 Pulse 62 Resp 16 Wt 74.5 kg (164 lb 3.2 oz) SpO2 96% BMI 30.52 kg/m General Appearance: Well appearing, alert, in no acute distress, well-hydrated, well nourished.. Skin: Skin color, texture, turgor normal, no suspicious rashes or lesions. Lungs: Lungs clear to auscultation. No wheezing, rhonchi, rales.. Heart: RRR without murmur, gallop, or rubs. No ectopy. Abdomen: Normal abdominal exam, Abdomen soft, non-tender. Bowel sounds normal. No masses, organomegaly. Extremities: No deformities, edema, skin discoloration, clubbing or cyanosis. Good capillary refill. . Shoulder: Location: Right. Redness: No. Warmth: No. Tenderness to palpation: No. Swelling: No. Range of motion: Limited abduction and flexion to 90 degrees. Internal rotation and external rotation limited. Empty can test: Positive Carmona: positive. Health Maintenance List Hepatitis C Screening Never done RSV Vaccine(1 - 1-dose 60+ series) Never done Covid-19 Vaccine(1 - 2022- season) Never done Advance Directive Discussion due on 11/20/2023 Mammogram Screening due on 05/18/2024 DTaP,Tdap,Td Vaccine(2 - Td or Tdap) due on 05/15/2024 Colorectal Cancer Screening due on 05/15/2024 Shingrix Vaccine(1 of 2) due on 05/15/2024 Pneumococcal Vaccine: 65+(1 of 1 - PCV) due on 05/15/2024 Influenza Vaccine(Season Ended) due on 07/21/2024 Annual PCP Team Chronic Disease Visit due on 08/21/2024 BP Controlled (<130/80) due on 08/21/2024 Diabetes Screening due on 10/24/2026 Lipid Screening due on 10/24/2028 Bone Density Screening Completed Data reviewed Latest Ref Rng 04/12/2023 07/11/2023 10/24/2023 Protein, Total 6.3 - 8.0 g/dL 7.6 7.1 Albumin 3.9 - 4.9 g/dL 4.8 4.7 Calcium 8.5 - 10.2 mg/dL 10.5 (H) 9.5 Bilirubin, Total 0.2 - 1.3 mg/dL 0.4 0.3 Alkaline Phosphatase 34 - 123 U/L 62 44 AST 13 - 35 U/L 27 15 ALT 7 - 38 U/L 18 10 Glucose 74 - 99 mg/dL 102 (H) 102 (H) BUN 7 - 21 mg/dL 18 12 Creatinine 0.58 - 0.96 mg/dL 0.91 0.82 Sodium 136 - 144 mmol/L 137 141 Potassium 3.7 - 5.1 mmol/L 4.4 4.0 Chloride 97 - 105 mmol/L 102 106 (H) CO2 22 - 30 mmol/L 19 (L) 23 Anion Gap 9 - 18 mmol/L 16 12 eGFR >=60 mL/min/1.73m 68 77 Cholesterol, Total <200 mg/dL 164 127 Triglyceride <150 mg/dL 121 64 HDL Cholesterol >39 mg/dL 54 53 Non HDL Cholesterol <130 mg/dL 110 74 Fasting Time hrs 12 14 VLDL Cholesterol <30 mg/dL 24 13 TC:HDL Ratio <5.10 3.04 2.40 LDL Cholesterol <100 mg/dL 86 61 LDL:HDL Ratio <2.54 1.59 1.15 Total Cholesterol, Nonfasting <200 mg/dL 170 Triglycerides, Nonfasting <150 mg/dL 118 HDL Cholesterol, Nonfasting >39 mg/dL 46 LDL Cholesterol, Nonfasting <100 mg/dL 100 (H) Non HDL Cholesterol, Nonfasting <130 mg/dL 124 VLDL Cholesterol, Nonfasting <30 mg/dL 24 Total Chol/HDL Ratio, Nonfasting <5.10 mg/dL 3.70 LDL/HDL Ratio, Nonfasting <2.54 mg/dL 2.17 ASSESSMENT/PLAN: 1. Hypertension, essential - ICD9: 401.9, ICD10: I10 (primary diagnosis) - Controlled - Continue current medications - Recommend home blood pressure monitoring, to bring results to next visit - Encouraged sodium restriction, DASH or Mediterranean diet - Recommend regular aerobic exercise 2. Hyperlipidemia, mixed - ICD9: 272.2, ICD10: E78.2 - Controlled - Continue current medications - Counseled on healthy diet and regular exercise 3. Anxiety - ICD9: 300.00, ICD10: F41.9 Controlled on current regimen. 4. Major depressive disorder, remission status unspecified, unspecified whether recurrent - ICD9: 296.20, ICD10: F32.9 Controlled on current regimen. 5. Class 1 obesity due to excess calories with body mass index (BMI) of 30.0 to 30.9 in adult, unspecified whether serious comorbidity present - ICD9: 278.00, V85.30, ICD10: E66.09, Z68.30 Stable - Behavioral intervention 6. Cerebrovascular accident (CVA), unspecified mechanism (HCC) - ICD9: 434.91, ICD10: I63.9 Asymptomatic with secondary stroke prevention. Repeat carotid US. Given handicap [employer] rx. - PARKING FOR HANDICAPPED - US CAROTID ARTERIES [facility] - COMPLETE BLOOD COUNT AND DIFFERENTIAL - COMPREHENSIVE METABOLIC PANEL - LIPID PANEL, NONFASTING 7. Daytime somnolence - ICD9: 780.54, ICD10: R40.0 Obtain HSAT to confirm EVA. - HOME SLEEP APNEA TEST (HSAT) 8. Chronic right shoulder pain - ICD9: 719.41, 338.29, ICD10: M25.511, G89.29 Possible frozen shoulder vs impingement vs rotator cuff tendinopathy. Obtain xray and MRI as ordered. Refer to PT for evaluation and treatment. Discussed ice/heat, OTC analgesics PRN, home exercises given in the office. - XR SHOULDER GENERAL 3V OR MORE AP/TRUE AP/OTHER RIGHT - MRI SHOULDER WO IVCON RIGHT - CONSULT TO PHYSICAL THERAPY 9. Limited range of motion (ROM) of shoulder - ICD9: 719.51, ICD10: M25.619 See HPI - XR SHOULDER GENERAL 3V OR MORE AP/TRUE AP/OTHER RIGHT - MRI SHOULDER WO IVCON RIGHT - CONSULT TO PHYSICAL THERAPY 10. Screening mammogram, encounter for - ICD9: V76.12, ICD10: Z12.31 - Set up for mammogram, yearly mammogram recommended - [facility] SCREENING Ceci Vera MD documented in this encounter [facility] 03-20-2024 History of Presen t illness Narrative RADIOLOGY SERVICE PROGRESS NOTE SERVICE DATE: 08/18/2024 SERVICE TIME: 11:00 AM PATIENT IDENTITY VERIFICATION COMPLETED USING TWO (2) STANDARD IDENTIFIERS: Name and Date of confirmed by patient verbally FALL SCREENING: Has the patient had 2 falls in the last year or 1 fall with injury or currently using an Ambulatory Assistive Device (Walker, Cane, Wheelchair, Crutches, etc.)? No PATIENT GENDER DATA: .female : No ALLERGIES: Reviewed and unchanged MEDICATIONS REVIEWED: Not applicable PATIENT RELEVANT IMPLANT DATA REVIEWED: Not Applicable PATIENT PRESENTS WITH AN IMPLANTABLE OR ATTACHED CLINICAL MEDICAL ASSISTANT: No CREATININE: Creatinine Date Value Ref Range Status 08/18/2024 0.81 0.51 - 0.95 mg/dL Final Comment: Patients receiving either N-Acetylcysteine (NAC) or Metamizole prior to venipuncture, may have falsely depressed results. 08/17/2024 0.67 0.51 - 0.95 mg/dL Final Comment: Patients receiving either N-Acetylcysteine (NAC) or Metamizole prior to venipuncture, may have falsely depressed results. 08/16/2024 0.75 0.51 - 0.95 mg/dL Final Comment: Patients receiving either N-Acetylcysteine (NAC) or Metamizole prior to venipuncture, may have falsely depressed results. Estimated Glomerular Filtration Rate Date Value Ref Range Status 08/18/2024 78 >=60 mL/min/1.73m Final Comment: Estimated Glomerular Filtration Rate (eGFR) is calculated using the 2020 CKD-EPI creatinine equation. This equation utilizes serum creatinine, sex, and age as parameters. The creatinine assay has traceable calibration to isotope dilution-mass spectrometry. Refer to KDIGO guidelines for clinical interpretation. In patients with unstable renal function, e.g. those with acute kidney injury, the eGFR may not accurately reflect actual GFR. eGFR- Date Value Ref Range Status 12/11/2012 >60 Final P.O.C.T. RESULTS: N/A August 18, [address] PERFORMED: No IV SITE: Inpatient - refer to LDA documentation POST EXAM PIV STATUS: Inpatient see LDA documentation PROCEDURE TYPE: NM Stress: 12.8 mCi [id number] was administered IV for Rest Imaging at 0745 by dem. 36.0 mCi [id number] was administered IV for Stress Imaging at 1100 by dem. ADMINISTRATION TIME: 1130 PATIENT DISCHARGED TO: Patient taken to IP transport area for return to RNF/ICU/ED. A Diagnostic radioactive procedure has taken place, with no further precautions necessary other than routine body substance precautions. More information regarding radiation safety can be found using this link: [email or web address] SIGNATURE: ANANDA Harris) PATIENT NAME: Jessica Lazcano DATE: August 18, 2024 TIME: 11:00 AM PAGER/CONTACT #: documented in this encounter [facility] 02-12-2024 Miscellaneous Notes Patient has been identified by name and date of : Yes Patient phones for refill(s): Requested Prescriptions Pending Prescriptions Disp Refills traZODone (DESYREL) 50 mg tablet 90 tablet 1 Sig: Take 1 tablet by mouth daily at bedtime. Date of last office visit in primary care: 08/21/2023 Date of next office visit in primary care: 02/20/2024 Please advise. Thank you. Genaro Mcintyre LPN. documented in this encounter [facility] 09-18-2023 History of Presen t illness Narrative Episode Visit Count: 23 Therapist That Will Accept/Oversee The Plan Of Care: Edwardo Sherwood Start of Care Date: 04/07/23 Onset Date: 02/20/23 Plan of Care Certification Date: 08/18/23 Next Certification Due Date: 09/22/23 Patient Identified by Name and Date of : Yes REHABILITATION AND SPORTS THERAPY PHYSICAL THERAPY DISCONTINUANCE OF CARE PLAN OF CARE UPDATE: Assessment: Jessica Lazcano is discontinued from Physical Therapy services due to Patient/Clinician mutual decision to discontinue current plan of care.. Patient was seen for 23 visits from Start of Care Date: 04/07/23 to 09/18/2023 and treatment included: Therapeutic exercise, Neuromuscular re-education, Manual therapy, Self-halfway management, Gait training, and Patient/Family/Caregiver Education. Goals updated on 09/18/2023. Goals for Episode of Care: created on 04/07/23 through 08/07/23 [place] in home exercise program. MET Patient will decrease pain rating by 2 points to meet minimal clinical important difference for numeric pain rating scale. Met Perform ADLs with least with decreased report of fear of falling in 4 Weeks. Met, goal to maintain and improve Perform ADLs without fear of falling in 8 weeks. Met, goal to maintain and improve Patient will improve 5 time sit to stand to demonstrate improvement in functional lower extremity strength. Met, progressed to 30 second STS Increased RLE strength in all planes to at least 4/5. MET Improve single leg and tandem stance balance to at least 20 seconds to decrease risk of falling. Partially met Improve postural awareness. Met Normal gait. Progressing towards Reciprocal stair negotiation. -Progressing, will continue Patient Goals: get back to walking without the walker Goals added 06/12/2023: Patient will perform 16 repetitions in the 30 seconds STS test to demonstrate improved strength, endurance, and decrease fall risk. SUBJECTIVE: Doing well. No issues. Can get around without a cane when with a friend/family. When walking alone she likes to still use the cane. Pain: Pain Pain Level: 0 PROMIS Scales Higher is Better 08/07/2023 05/05/2023 04/07/2023 Phys Func - Score 33 (moderate dysfunction) 34 (moderate dysfunction) 32 (moderate dysfunction) Phys Func - Percentile 4 % 5 % 4 % Self-Eff Symptom - Score - 48 (Average) 46 (Average) Self-Eff Symptom - Percentile - 42 % 34 % T-scores: mean of general population = 50. 5 points is clinically meaningfully difference Percentiles provide an indication of how the patient's score ranks in relation to the general population. Higher percentile rankings indicate better function/quality of life. 50th percentile is the average of the general population and indicates half of respondents had a worse score. OBJECTIVE MEASURES WITH LEVEL OF FUNCTION: LE AROM R LE AROM: WNL L LE AROM: WNL LE Strength R Hip Flexion (L2): 5/5 R Hip ABduction: 4+/5 R Hip ADduction: 4+/5 R Hip External Rotation: 4/5 R Knee Extension (L3): 5/5 R Knee Flexion: 5/5 Gait Gait Device: Cane Gait Deviations: Right Lower Extremity Gait Deviations Right Lower Extremity: Step length decreased, Lacks full knee extension during terminal swing, Knee stability during stance phase decreased Functional Performance Test Results 30 Second Chair Stand Test: 16 reps Timed Up and Go (sec): 9.3 sec TREATMENT: Therapeutic Exercise: 1: All objective measures taken this session 2: STS x 10 3: Discussed finalized HEP to promote continued LE strengthening and promote improved function Skilled Intervention: Patient was educated in proper exercise technique and purpose for exercises. Correct performance of therapeutic exercises was facilitated with verbal and visual cuing. Billing Therapeutic Exercise Treatment Minutes: 33 Skilled Treatment Time Minutes (timed and untimed codes): 33 Total Session Time (minutes): 33 Session Start Time : 1443 Session Stop Time : 1516 Edwardo Sherwood PT documented in this encounter [facility] 08-21-2023 Instructions Radha Zamora APRN.CNP - 08/21/2023 9:29 AM EDT Recheck cholesterol end september documented in this encounter [facility] 08-21-2023 History of Presen t illness Narrative 08/21/2023 Patient presents with: F/U 3 Month SUBJECTIVE: This is a 72 year old that is here today for Above Complaints. CVA: followed with neurologist. No medication changes at that time. Due for US of carotid in November. Continues with PT and will work with them twice a month. Still with right sided weakness. Using cane HTN: Patient is compliant with meds Yes Monitors bp at home: Yes. Denies side effects: Yes. Chest pain: No. Dyspnea: No. Edema: No. Palpitations: No. Syncope: No. Headache: No. Dizziness: No. Insomnia: taking trazodone as prescribed. Working well to help with insomnia HYPERLIPIDEMIA: Patient is taking medications: Yes. Patient is watching diet: Yes. Patient denies myalgias: Yes. Patient denies gi upset: Yes Taking Buspar for anxiety as prescribed without side effects Taking fosamax as prescribed without side effects. Taking vitamin D and calcium supplement as prescribed PAST MEDICAL HISTORY Diagnosis Date Adjustment disorder with depressed mood Anxiety Carotid stenosis, bilateral 05/30/2023 40-59% CVA (cerebral vascular accident) (HCC) 02/2023 History of endometriosis History of melanoma 10/15/2014 HLD (hyperlipidemia) HTN (hypertension) Osteoporosis 06/12/2023 Other and unspecified hyperlipidemia Overweight (BMI 25.0-29.9) Right sided weakness ALLERGIES Lipitor [Atorvastatin] MEDICATIONS Current Outpatient Medications Medication Sig rosuvastatin (CRESTOR) 20 mg tablet Take 1 tablet by mouth daily at bedtime. alendronate (FOSAMAX) 70 mg tablet Take 1 tablet by mouth one time a week. Take with a full glass of water, on an empty stomach; do NOT lie down for 30minutes. diphenhydrAMINE (BENADRYL) 25 mg capsule Take 25 mg by mouth every 6 hours as needed. busPIRone (BUSPAR) 5 mg tablet Take 1 tablet by mouth twice daily. lisinopril (ZESTRIL) 5 mg tablet Take 1 tablet by mouth once daily. metoprolol succinate ER (TOPROL XL) 50 mg 24 hr tablet Take 1 tablet by mouth once daily. famotidine (PEPCID) 20 mg tablet Take 1 tablet by mouth twice daily. aspirin, enteric coated (ASPIRIN, ENTERIC COATED) 81 mg EC tablet Take 1 tablet by mouth once daily. amLODIPine (NORVASC) 10 mg tablet Take 1 tablet by mouth once daily. No current facility-administered medications for this visit. Medications and allergies reviewed by this provider. SOCIAL HISTORY Social History Tobacco Use Smoking status: Never Smokeless tobacco: Never Substance Use Topics Alcohol use: Not Currently Comment: less than monthly Drug use: No REVIEW OF SYSTEMS All other reviewed and negative other than HPI. OBJECTIVE: BP 122/68 Pulse 70 Resp 16 Wt 72 kg (158 lb 12.8 oz) SpO2 98% BMI 29.52 kg/m . Vital signs reviewed by this provider. APPEARANCE Well appearing, alert, in no acute distress, well-hydrated, well nourished. EYES conjunctiva and sclera normal. EARS External ears normal, canals clear NECK Supple, no adenopathy; thyroid symmetric, normal size, no bruits HEART RRR with normal S1 and S2, no murmurs, no gallops, no JVD appreciated LUNG clear to auscultation. No wheezes, rhonchi or rales EXTREMITIES Extremities normal, No deformities, No skin discoloration, and No edema Component Latest Ref Rng & Units 07/11/2023 Cholesterol, Total <200 mg/dL 164 Triglyceride <150 mg/dL 121 HDL Cholesterol >39 mg/dL 54 Non HDL Cholesterol <130 mg/dL 110 Fasting Time hrs 12 VLDL Cholesterol <30 mg/dL 24 TC:HDL Ratio <5.10 3.04 LDL Cholesterol <100 mg/dL 86 LDL:HDL Ratio <2.54 1.59 Component Latest Ref Rng & Units 04/12/2023 Protein, Total 6.3 - 8.0 g/dL 7.6 Albumin 3.9 - 4.9 g/dL 4.8 Calcium 8.5 - 10.2 mg/dL 10.5 (H) Bilirubin, Total 0.2 - 1.3 mg/dL 0.4 Alkaline Phosphatase 34 - 123 U/L 62 AST 13 - 35 U/L 27 ALT 7 - 38 U/L 18 Glucose 74 - 99 mg/dL 102 (H) BUN 7 - 21 mg/dL 18 Creatinine 0.58 - 0.96 mg/dL 0.91 Sodium 136 - 144 mmol/L 137 Potassium 3.7 - 5.1 mmol/L 4.4 Chloride 97 - 105 mmol/L 102 CO2 22 - 30 mmol/L 19 (L) Anion Gap 9 - 18 mmol/L 16 eGFR >=60 mL/min/1.73m 68 Hepatitis C Screening Never done BP Controlled (<130/80) Never done DTaP,Tdap,Td Vaccine(2 - Td or Tdap) due on 05/15/2024 Colorectal Cancer Screening due on 05/15/2024 Shingrix Vaccine(1 of 2) due on 05/15/2024 Covid-19 Vaccine(1) due on 05/15/2024 Pneumococcal Vaccine: 65+(1 - PCV) due on 05/15/2024 Influenza Vaccine(1) due on 05/19/2024 Annual PCP Team Chronic Disease Visit due on 05/15/2024 Mammogram Screening due on 05/18/2024 Diabetes Screening due on 04/12/2026 Lipid Screening due on 07/11/2028 Bone Density Screening Completed Advance Directive Discussion Completed ASSESSMENT/PLAN: 1. Hypertension, essential - ICD9: 401.9, ICD10: I10 (primary diagnosis) - Controlled - Continue current medications - Recommend home blood pressure monitoring, to bring results to next visit - Encouraged sodium restriction, DASH or Mediterranean diet - Recommend regular aerobic exercise - Discussed need for and benefit of weight loss. BMI 29.52 kg/(m^2) - Follow up in 6 months for hypertension visit 2. Chronic insomnia - ICD9: 780.52, ICD10: F51.04 - TRAZODONE 50 MG TABLET 3. Cerebrovascular accident (CVA), unspecified mechanism (HCC) - ICD9: 434.91, ICD10: I63.9 - continue preventative care - follow-up with neurology as scheduled 4. Major depressive disorder, remission status unspecified, unspecified whether recurrent - ICD9: 296.20, ICD10: F32.9 - controlled on current regime 5. Right sided weakness - ICD9: 728.87, ICD10: R53.1 - continue with PT 6. Bilateral carotid bruits - ICD9: 785.9, ICD10: R09.89 - plan as in in #3 7. Osteoporosis, unspecified osteoporosis type, unspecified pathological fracture presence - ICD9: 733.00, ICD10: M81.0 - continue tx with alendronate (Fosamax) - Reviewed the need for Calcium and Vitamin D supplements and weight bearing exercise as tolerated Radha Zamora APRN.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 ENGINEER Prescription instructions reviewed with patient as applicable. Patient advised if symptoms do not improve or if symptoms worsen sooner, to contact their primary care physician. Potential red flag symptoms discussed with the patient. Reviewed appropriate action plan to take if red flag symptoms occur. Patient agreeable to treatment plan. I spent a total of 25 minutes on the date of the service which included preparing to see the patient, [id number] patient care, completing clinical documentation, obtaining and/or reviewing separately obtained history, performing a medically appropriate examination, counseling and educating the patient/family/caregiver, and ordering medications, tests, or procedures. documented in this encounter [facility] 08-18-2023 History of Presen t illness Narrative Episode Visit Count: 21 Therapist That Will Accept/Oversee The Plan Of Care: Edwardo Sherwood Start of Care Date: 04/07/23 Onset Date: 02/20/23 Plan of Care Certification Date: 08/18/23 Next Certification Due Date: 09/22/23 Patient Identified by Name and Date of : Yes REHABILITATION AND SPORTS THERAPY PHYSICAL THERAPY PROGRESS REPORT PLAN OF CARE UPDATE: Assessment: Jessica Lazcano demonstrates difficulty with stair negotiation, stamina, walking in the community and improvements in standing, walking, stair negotiation, and heavy exertion. She has progressed toward goals. Patient continues to present with impairments in gait, overall function, and strength that interfere with walking in the community, stair negotiation . Current prognosis is Excellent due to: current objective clinical presentation, good overall health status, positive past response to therapy, within-session changes, good support system/ coping skills . She will benefit from continued skilled therapy services to meet the updated goals for this plan of care as noted below. Goals updated on 08/18/2023. Goals for Episode of Care: created on 04/07/23 through 08/07/23 [place] in home exercise program. Continuing Patient will decrease pain rating by 2 points to meet minimal clinical important difference for numeric pain rating scale. Met Perform ADLs with least with decreased report of fear of falling in 4 Weeks. Met, goal to maintain and improve Perform ADLs without fear of falling in 8 weeks. Met, goal to maintain and improve Patient will improve 5 time sit to stand to demonstrate improvement in functional lower extremity strength. Met, progressed to 30 second STS Increased RLE strength in all planes to at least 4/5. Progressing towards Improve single leg and tandem stance balance to at least 20 seconds to decrease risk of falling. Partially met Improve postural awareness. Met Normal gait. Progressing towards Reciprocal stair negotiation. -Progressing, will continue Patient Goals: get back to walking without the walker Goals added 06/12/2023: Patient will perform 16 repetitions in the 30 seconds STS test to demonstrate improved strength, endurance, and decrease fall risk. Patient Goals: get back to walking without the walker Planned Interventions, Frequency, and Duration: 1x/week, 4 weeks Total Number of Visits Planned: 4 Patient to be seen for Therapeutic exercise (95303), Neuromuscular re-education (96887), Manual therapy (28812), Therapeutic activities (43955), Self-halfway management (39788), Gait Training (26422), Patient/Family/Caregiver Education, Body Mechanics Training PLAN FOR NEXT VISIT: Progress LE strengthening as tolerated SUBJECTIVE: Suprised how strong she has become. Walking is better. Not having much of a balance issue. Patient Goals: get back to walking without the walker Functional Limitations: walking in the community, stair negotiation Prior Level of Function: Independent without limitations Intake Information: Prescription present Previous Treatment: None Pain: Pain Pain Level: 0 PROMIS Scales Higher is Better 08/07/2023 05/05/2023 04/07/2023 Phys Func - Score 33 (moderate dysfunction) 34 (moderate dysfunction) 32 (moderate dysfunction) Phys Func - Percentile 4 % 5 % 4 % Self-Eff Symptom - Score - 48 (Average) 46 (Average) Self-Eff Symptom - Percentile - 42 % 34 % T-scores: mean of general population = 50. 5 points is clinically meaningfully difference Percentiles provide an indication of how the patient's score ranks in relation to the general population. Higher percentile rankings indicate better function/quality of life. 50th percentile is the average of the general population and indicates half of respondents had a worse score. OBJECTIVE MEASURES WITH LEVEL OF FUNCTION: LE Strength R Hip Flexion (L2): 5/5 R Hip ABduction: 4+/5 R Hip ADduction: 4+/5 R Hip External Rotation: 4/5 R Knee Extension (L3): 5/5 Mobility Rolling: Independent Supine To Sit: Independent Sit to Supine: Independent Sit To Stand: Independent Stand To Sit: Independent Bed To Chair: Independent Bed To Chair Transfer Type: Stepping Gait Gait Device: Cane Gait Deviations: Right Lower Extremity Gait Deviations Right Lower Extremity: Step length decreased, Lacks full knee extension during terminal swing, Knee stability during stance phase decreased Functional Performance Test Results 5 Times Sit to Stand Test : 8.41 sec Timed Up and Go (sec): 11.18 sec Timed Up and Go - Condition 2 (sec) : 11 TREATMENT: Therapeutic Exercise: 1: All objective measures taken this session 2: GTB sidestepping 12 feet x 3 each side 3: GTB resisted hip flexion 2 x 10 4: GTB side kicks x 20 each side 5: GTB resisted F stepping 12 feet x 4 Skilled Intervention: Patient was educated in proper exercise technique and purpose for exercises. Skilled judgment was provided in selection of appropriate interventions. Provided written instruction for home exercise program to facilitate proper performance and compliance. Correct performance of therapeutic exercises was facilitated with verbal cuing. Billing KX Modifier : Therapist attests that services rendered are medically necessary. Therapeutic Exercise Treatment Minutes: 39 Skilled Treatment Time Minutes (timed and untimed codes): 39 Total Session Time (minutes): 39 Session Start Time : 1104 Session Stop Time : 1143 Edwardo Sherwood PT documented in this encounter [facility] 08-11-2023 History of Presen t illness Narrative Episode Visit Count: 20 Therapist That Will Accept/Oversee The Plan Of Care: Edwardo Sherwood Start of Care Date: 04/07/23 Onset Date: 02/20/23 Plan of Care Certification Date: 07/18/23 Next Certification Due Date: 08/22/23 Patient Identified by Name and Date of : Yes REHABILITATION AND SPORTS THERAPY PHYSICAL THERAPY TREATMENT NOTE ASSESSMENT: Jessica Lazcano tolerated the session with fatigue and expected muscle soreness. She demonstrated decreased gait quality at the end of the session due to expected muscle fatigue of the LE's. The patient will continue to benefit from ongoing skilled physical therapy to progress toward set goals. PLAN FOR NEXT VISIT: Continue with LE strengthening and balance training SUBJECTIVE: Unable to do the step-up exercise at home due to her step being taller. [place] uncomfortable with trying it at home because of this. Pain: Pain Pain Level: 0 OBJECTIVE MEASURES WITH LEVEL OF FUNCTION: TREATMENT: Therapeutic Exercise: 1: Meta TB hip flexion standing 2 x 10 each leg 2: Meta TB side-stepping [address] x 3 3: 6 F step-up and through 5# on ankles 2 x 10 each 4: F stepping pink TB resisting x 3 Skilled Intervention: Patient was educated in proper exercise technique and purpose for exercises. Correct performance of therapeutic exercises was facilitated with verbal cuing. Billing Therapeutic Exercise Treatment Minutes: 40 Skilled Treatment Time Minutes (timed and untimed codes): 40 Total Session Time (minutes): 40 Session Start Time : 1200 Session Stop Time : 1240 Edwardo Sherwood PT documented in this encounter [facility] 08-08-2023 Instructions Nerissa Miner APRN.KANG - 08/08/2023 9:52 AM EDT Continue ASA daily Continue PT re: R sided weakness Carotid US in Nov (6 mo monitoirng) mild - mod b/l ICA stenosis OT driving evaluation - phone number provided to schedule; no driving until completed FU in Nov after CUS completed - she will my chart after she schedules ultrasound documented in this encounter [facility] 08-08-2023 History of Presen t illness Narrative [facility] Virtual Visit I have communicated my name and active licensure. The patient's identity and physical location were verified at the time of this visit. Either the patient or their legal congressional representative has been informed of the risks and benefits of -- and alternatives to -- treatment through a remote evaluation and consents to proceed with the evaluation remotely. Consultation is requested by: Darrian Nolasco PCP: Ceci Vera [address] [place] [address] [facility] Jessica Lazcano is a 72 year old female. Reason for Visit: stroke Date of Last Event: 02/21/2023 History of Event: Event History: 02/21-: OSH ED to Admission at [facility] for Right hemiparesis, CVA, hypertensive disorder. Presented with Right-sided weakness and feeling off balance.BP 253/159. MRI BRAIN wo with small L thalamic stroke. CT/CTA h/n, TTE unremarkable. Discharged home with outpt PT/OT on DAPT for 2 more weeks, statin. Antiplatelets/Anticoagulants: Aspirin Statins: Atorvastatin Side effects: No Refills needed: No Residual Deficits: Right-sided weakness Current PT/OT/ST: Oupatient with physical therapy Current Living Situation: Home alone Current use of a mobility aid for walking/getting around: - cane when outside of house Interval History: - alone on video visit - last visit Dr. David on 06/20/23 - improving R sided weakness; 75-80% back to baseline; can do everything needs to get done; at home no cane needed; only cane when going out. Balance improving. No falls. - getting PT - OT exercises at home and went back one month later and discharged - hair loss - BP not checked recently at home but last couple office visit controlled - PCP started crestor 20mg 07/12/23 - LDL 86 and goal < 70 - not driving MEDICATIONS Current Outpatient Medications Medication Sig rosuvastatin (CRESTOR) 20 mg tablet Take 1 tablet by mouth daily at bedtime. alendronate (FOSAMAX) 70 mg tablet Take 1 tablet by mouth one time a week. Take with a full glass of water, on an empty stomach; do NOT lie down for 30minutes. traZODone (DESYREL) 50 mg tablet Take 1 tablet by mouth daily at bedtime. diphenhydrAMINE (BENADRYL) 25 mg capsule Take 25 mg by mouth every 6 hours as needed. busPIRone (BUSPAR) 5 mg tablet Take 1 tablet by mouth twice daily. lisinopril (ZESTRIL) 5 mg tablet Take 1 tablet by mouth once daily. metoprolol succinate ER (TOPROL XL) 50 mg 24 hr tablet Take 1 tablet by mouth once daily. famotidine (PEPCID) 20 mg tablet Take 1 tablet by mouth twice daily. aspirin, enteric coated (ASPIRIN, ENTERIC COATED) 81 mg EC tablet Take 1 tablet by mouth once daily. amLODIPine (NORVASC) 10 mg tablet Take 1 tablet by mouth once daily. No current facility-administered medications for this visit. ALLERGIES Allergen Reactions Lipitor [Atorvastat* Hives EXAM A&O x 3. No acute distress. No facial droop. Clear fluent speech. LABS Cholesterol: Cholesterol, Total (mg/dL) Date Value 07/11/2023 164 03/11/2013 182 LDL Cholesterol (mg/dL) Date Value 07/11/2023 86 03/11/2013 105 LDL Cholesterol, Nonfasting (mg/dL) Date Value 04/12/2023 100 HDL Cholesterol (mg/dL) Date Value 07/11/2023 54 03/11/2013 58 Triglyceride (mg/dL) Date Value 07/11/2023 121 03/11/2013 95 Diabetes: No results found for: HBA1C IMAGING MRI brain 02/21/23: left lateral thalamus infarction CTA head and neck 02/21/23 - unremarkable Carotid duplex 05/30/23: POLO 40-56%, LICA 40-59% Echo 02/21/23 - unremarkable Patient Entered Questionnaires Health Status Change Since Last Visit 08/07/2023 Change Much improved PROMIS/NeuroQoL Score Percentiles Physical Health 08/07/2023 05/05/2023 04/07/2023 Physical Function Percentile 4 5 4 Sleep Percentile 27* - - Fatigue Percentile 46 - - Pain Interference Percentile 84 - - PROMIS SOCIAL ROLE SCORE 08/07/2023 Social Role Satisfaction Percentile 90 Mental Health 08/07/2023 NeuroQol Cognitive Function Percentile 88 General Self-Efficacy Percentile 79 PROMIS Global Health Scale 08/07/2023 04/07/2023 04/07/2023 Physical Health Percentile 53 41 41 Mental Health Percentile 53 - - Percentiles provide an indication of how a patient's score ranks in relation to the [place] general population. > 31st percentile is within normal limits or better * < 31st percentile is at least SD worse than population, which may be clinically relevant < 16th percentile is at least 1 SD worse than population and warrants attention Depression Screening: PHQ-9 08/07/2023 Score 2 Self-Harm Response 0 PHQ-9 Scores: PHQ-9 Self-Harm (Item 9) Response: 0 - 9 No to Mild depression 0 - Not at all 10 - 14 Moderate depression 1 - Several Days > 15 Severe depression 2 - More than half the days 3 - Nearly every day Sleep Apnea Probability Score 08/07/2023 Sleep Apnea Screen V2 37 (Sleep study not recommended) Stroke Mechanism and Scales Ischemic or TIA: Ischemic Stroke TOAST Mechanism ([facility]-MODIFIED): Small-Vessel Occlusion ([place]) Modified [place] Score: Score: 2 IMPRESSION L thalamic stroke, small - likely small vessel disease. Neg CTA H/N for large vessel disease or occlusion. Echocardiogram unremarkable. CUS 40-59% stenosis b/l. On DAPT x few weeks and on aspirin monotherapy. Residual mild R weakness. Carotid stenosis - < 50% on CTA imaging HPL - LDL 86 - PCP changed pravastatin to crestor 20mg with plans to recheck. HTN PLAN Continue aspirin daily lifelong LDL < 70 - will check with PCP in couple months BP < 130/80 Driving OT evaluation CUS and clinic in November 2023 - virtual visit I spent a total of 30 minutes on the date of the service which included preparing to see the patient, [id number] patient care, completing clinical documentation, performing a medically appropriate examination, counseling and educating the patient/family/caregiver, and ordering medications, tests, or procedures. SIGNATURE Nerissa Miner APRN.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 ENGINEER CC Darrian Vera [address] [place] [address] documented in this encounter [facility] 08-04-2023 History of Presen t illness Narrative Episode Visit Count: 19 Therapist That Will Accept/Oversee The Plan Of Care: Edwardo Sherwood Start of Care Date: 04/07/23 Onset Date: 02/20/23 Plan of Care Certification Date: 07/18/23 Next Certification Due Date: 08/22/23 Patient Identified by Name and Date of : Yes REHABILITATION AND SPORTS THERAPY PHYSICAL THERAPY TREATMENT NOTE ASSESSMENT: Jessica Lazcano tolerated the session with expected muscle soreness and no issues. She demonstrated fatigue of the R quad by the end of the session. The patient will continue to benefit from ongoing skilled physical therapy to progress toward set goals. PLAN FOR NEXT VISIT: Continue practicing stairs SUBJECTIVE: Was able to to walk half a mile. Negotiated stairs (up and down) without help. Pain: Pain Pain Level: 0 Post Treatment Pain Post Treatment Pain Level: No Change OBJECTIVE MEASURES WITH LEVEL OF FUNCTION: TREATMENT: Therapeutic Exercise: 1: STS 6# MB x 15 2: STS 15# 2 x 15 reps 3: Side-stepping over BOSU x 11 4: Step up and through with LLE while 5# on RLE 2 x 15 5: Standing hip abd 5# on ankle 2 x 15 6: Standing hip flexion 2 x 15 7: 6 lateral step-up 2 x 10 Skilled Intervention: Patient was educated in proper exercise technique and purpose for exercises. Billing Total Session Time (minutes): 47 Session Start Time : 1454 Session Stop Time : 1541 Edwardo Sherwood PT documented in this encounter [facility] 07-25-2023 History of Presen t illness Narrative Episode Visit Count: 18 Therapist That Will Accept/Oversee The Plan Of Care: Edwardo Sherwood Start of Care Date: 04/07/23 Onset Date: 02/20/23 Plan of Care Certification Date: 07/18/23 Next Certification Due Date: 08/22/23 Patient Identified by Name and Date of : Yes REHABILITATION AND SPORTS THERAPY PHYSICAL THERAPY TREATMENT NOTE ASSESSMENT: Jessica Lazcano tolerated the session with fatigue. She demonstrated difficulty with maintaining balance with higher level balance exercises. The patient will continue to benefit from ongoing skilled physical therapy to progress toward set goals. PLAN FOR NEXT VISIT: SUBJECTIVE: Pain: OBJECTIVE MEASURES WITH LEVEL OF FUNCTION: LOB in multiple directions when walking on balance beam TREATMENT: Therapeutic Exercise: 1: Standing hip abd 3# 2 x 15 2: Standing hip march 3# x 15 3: Standing knee curl 3# 2 x 15 Skilled Intervention: Patient was educated in proper exercise technique and purpose for exercises. Correct performance of therapeutic exercises was facilitated with verbal and visual cuing. Therapeutic Activity: 1: Stairs 6 1 HR x 4 (ascending and descending) 2: Walking along parallel bars 3# on RLE x 2 Skilled Intervention: Proper patient guarding to prevent falls/increase patient safety with contact guard assistance to assist patient while performing balance exercises Insured patient safety with use of gait belt Neuromuscular Re-Education: 1: Tandem stance 4 x 30 sec 2: Tandem walking x 10 feet 3: Tandem walking over foam beam plus 3 hurdles x 6 4: Standing NBOS head turns x 10 Skilled Intervention: Skilled judgment used to assess appropriate program for balance and coordination activity. Billing Therapeutic Exercise Treatment Minutes: 7 Therapeutic Activity Treatment Minutes: 8 Neuromuscular Re-Education Treatment Minutes: 25 Skilled Treatment Time Minutes (timed and untimed codes): 40 Total Session Time (minutes): 40 Session Start Time : 744 Session Stop Time : 824 Edwardo Sherwood PT documented in this encounter [facility] 07-12-2023 Miscellaneous Notes Pt returned call and given provider's message below with verbalized understanding. LM for patient to contact office. Adrian Reynolds MA New rx sent. Stop pravastatin and switch to Crestor 20 mg daily. Recheck fasting labs in 3 months as ordered. Patient returned call and went over results, notes from Dr Vera with understanding. Patient is will to take the new medication, she [facility] and gets 90 day rx's. LM for patient to contact office to inform of the below. Adrian Reynolds MA ----- Message from Ceci Vera MD sent at 07/12/2023 8:32 AM EDT ----- Patient's total cholesterol is in good range, but her LDL is above goal of <70. She is on moderate intensity statin at this time. Would recommend trial of high intensity statin Crestor 20 mg with option to increase to 40 mg if LDL does not continue to improve. Most common side effect: muscle aches. If agreeable, will send rx to requested pharmacy. documented in this encounter [facility] 07-11-2023 History of Presen t illness Narrative Episode Visit Count: 16 Therapist That Will Accept/Oversee The Plan Of Care: Edwardo Sherwood Start of Care Date: 04/07/23 Onset Date: 02/20/23 Plan of Care Certification Date: 06/12/23 Next Certification Due Date: 08/13/23 Patient Identified by Name and Date of : Yes REHABILITATION AND SPORTS THERAPY PHYSICAL THERAPY TREATMENT NOTE ASSESSMENT: Jessica Lazcano tolerated the session with no pain. She demonstrated improvements in heel strike during gait after VC's given. The patient will continue to benefit from ongoing skilled physical therapy for reassessment by supervising therapist. PLAN FOR NEXT VISIT: SUBJECTIVE: Things are getting easier. Sometimes walks around the house without the cane sometimes. Pain: 0 OBJECTIVE MEASURES WITH LEVEL OF FUNCTION: Lacks RLE heel strike Positive RLE trendelenberg TREATMENT: Therapeutic Exercise: 1: Standing hip flexion 4# 2 x 15 2: Standing hs curl 4#, 2 x 15 reps 3: Standing hip abduction 2 x 12 reps 4: BLE heel raises x 10 Skilled Intervention: Patient was educated in proper exercise technique and purpose for exercises. Correct performance of therapeutic exercises was facilitated with verbal cuing. Neuromuscular Re-Education: 1: Tandem stance 4 x 30 sec 2: Tandem walking x 10 feet 3: SL stance x 15 reps x 4 4: Walking in parallel bars without UE support 10 feet x 4 Skilled Intervention: Skilled judgment used to assess appropriate program for balance and coordination activity. Billing Therapeutic Exercise Treatment Minutes: 20 Neuromuscular Re-Education Treatment Minutes: 22 Total Treatment Time Minutes (timed/untimed): 42 Session Start Time : 926 Session Stop Time : 100 Edwardo Sherwood PT documented in this encounter [facility] 06-27-2023 History of Presen t illness Narrative Episode Visit Count: 14 Therapist That Will Accept/Oversee The Plan Of Care: Darrian Nolasco Start of Care Date: 04/07/23 Onset Date: 02/20/23 Plan of Care Certification Date: 06/12/23 Next Certification Due Date: 08/13/23 REHABILITATION AND SPORTS THERAPY PHYSICAL THERAPY TREATMENT NOTE ASSESSMENT: Jessica Troncoso Pravinalexandra tolerated the session with fatigue and no issues. She demonstrated improvements in exercise tolerance and single leg stance today. The patient will continue to benefit from ongoing skilled physical therapy to progress toward set goals. PLAN FOR NEXT VISIT: Continue balance and strength training SUBJECTIVE: Pt doing well today. COntinues to work more independently at home Pain: Pain Pain Level: 0 OBJECTIVE MEASURES WITH LEVEL OF FUNCTION: CGA with all balance exercises TREATMENT: Neuromuscular Re-Education: 1: Airex NBOS EC 2x30 sec 2: Airex semi tadem EC 2x30 sec 3: Airex tandem stance EO 2x30 sec 4: SLS on flat ground 2x30 sec/side 5: Wobble board taps x20 each way 6: Wobble board balance each way x30 sec 7: Tandem walking around gym 1x Skilled Intervention: Skilled judgment used to assess appropriate program for balance and coordination activity. Ensured patient safety with use of gait belt and CGA Billing Neuromuscular Re-Education Treatment Minutes: 30 Total Treatment Time Minutes (timed/untimed): 30 Session Start Time : 1010 Session Stop Time : 1039 Darrian Nolasco PT documented in this encounter [facility] 06-23-2023 History of Presen t illness Narrative Episode Visit Count: 13 Therapist That Will Accept/Oversee The Plan Of Care: Darrian Nolasco Start of Care Date: 04/07/23 Onset Date: 02/20/23 Plan of Care Certification Date: 06/12/23 Next Certification Due Date: 08/13/23 REHABILITATION AND SPORTS THERAPY PHYSICAL THERAPY TREATMENT NOTE ASSESSMENT: Jessica K Smetzer tolerated the session with fatigue and no issues. She demonstrated improvements in balance and walking with no AD. The patient will continue to benefit from ongoing skilled physical therapy to progress toward set goals. PLAN FOR NEXT VISIT: Continue balance and walking progressions SUBJECTIVE: Pt continues to do well at home. Feels her walking is doing better Pain: Pain Pain Level: 0 OBJECTIVE MEASURES WITH LEVEL OF FUNCTION: CGA with gait belt TREATMENT: Neuromuscular Re-Education: 1: NBOS 1x30 seconds 2: Semi-tandem stance 1x30 seconds B 3: Tandem stance 1x30 seconds B 4: SLS 3x max 5: Taps on 6 inch step x10/side 6: Tandem walking on blue foam beams 4x with CGA 7: Tandem walking 2x30 feet in gym Skilled Intervention: Skilled judgment used to assess appropriate program for balance and coordination activity. Ensured patient safety with use of gait belt Billing Neuromuscular Re-Education Treatment Minutes: 40 Total Treatment Time Minutes (timed/untimed): 40 Session Start Time : 0950 Session Stop Time : 1030 Darrian Nolasco PT documented in this encounter [facility] 06-20-2023 Instructions Trista David MD - 06/20/2023 1:13 PM EDT Regarding your visit with Dr. David and Nurse Biju Browning today at the [facility] we discussed the following: Impression: Left lateral thalamic stroke HTN DLP Hypertension: Blood pressure goal < 140 Blood pressure today: BP 139/58 (BP Site: Left Arm, BP Position: Sitting, BP Cuff Size: Large Adult) Pulse 69 Temp 36.7 C (98 F) (Temporal) Resp 14 Ht 156.2 cm (5' 1.5) Wt 71 kg (156 lb 8 oz) SpO2 98% BMI 29.09 kg/m Hyperlipidemia: LDL goal < 79 Most recent LDL: LDL Cholesterol (mg/dL) Date Value 03/11/2013 105 LDL Cholesterol, Nonfasting (mg/dL) Date Value 04/12/2023 100 Diabetes: Hba1c goal < 7.0 Most recent Hba1c: No results found for: HBA1C Recommendations: Carotid duplex after one month Driving evaluation Regular follow up with primary care doctor for health maintenance -Assist ensuring blood pressure and cholesterol are at goal -Screen and manage diabetes Lifestyle modification -- Establish goals -Diet -Regular Exercise as discussed -Establish weight goals with primary care doctor Additional stroke reduction measures and stroke warning signs are listed below. Return to see KORIN Please do not hesitate to call if you have any questions Trista David MD [facility] [address] [place] [address] / [place] [id number] Office: [phone] ~~~~~~~~~~~~~~~~~~~~~~~~~~~~~~~~ ~~~~~~~~~~~~~~~~~~~~~~~~~~~~~~~~ ~~~~~~~~ Stroke Signs and Symptoms: *Stroke is a medical emergency. Know the warning signs of stroke: Sudden numbness or weakness of the face, arm or leg, especially on one side of the body Sudden confusion, trouble speaking, or understanding Sudden trouble seeing in one eye, or both eyes Sudden trouble walking, dizziness, loss of balance, or coordination Sudden severe headache with no known cause *If you, or someone with you, has one or more of these signs, don't delay! Immediately call 911, or the emergency medical services (EMS) number so an ambulance can be sent for you. Also, check the time so that you will know when the symptoms first appeared. It is very important to take immediate action, every second counts. Medical treatment may be available if action is taken early enough. ~~~~~~~~~~~~~~~~~~~~~~~~~~~~~~~~ ~~~~~~~~~~~~~~~~~~~~~~~~~~~~~~~~ ~~~~~~~~ General Guidelines to Help Reduce Risk of Recurrent Stroke Blood Pressure Management: Blood Pressure reduction is recommended for both prevention of recurrent stroke and prevention of other vascular events in persons who have had an ischemic stroke or TIA and are beyond the first 24 hours. Several lifestyle modifications have been associated with BP reduction and are a reasonable part of a comprehensive antihypertensive therapy -These modifications include: - salt restriction - weight loss - consumption of a diet rich in fruits, vegetables, and low-fat dairy products - Regular aerobic physical activity - Limited alcohol consumption Goal: Prehypertension (systolic BP of 120-139 mm Hg or diastolic BP of 80-89 mm Hg): Perform annual BP screening and lifestyle modifications Hypertension: Combine medications with above lifestyle modifications to reach your goal blood pressure as defined above. Monitor your blood pressure at home regularly to ensure you are reaching your goals Cholesterol and Lipid Management - Statin therapy with intensive lipid-lowering effects is recommended to reduce risk of stroke and cardiovascular events among patients with ischemic stroke or TIA who have evidence of atherosclerosis Diet: - Reduced sodium and increased potassium intake; DASH-style diet rich in fruits and vegetables - Consider Mediterranean diet supplemented with nuts Smoking and Tobacco Use: - Strongly recommend smoking and tobacco use cessation to reduce risk of stroke. - Counseling, nicotine products, and oral smoking cessation medications are effective for helping smokers quit and can be provided if needed. Alcohol Consumption: - Heavy drinkers should eliminate or reduce their consumption of alcohol. - Persons who continue drinking the following may be reasonable: - less than or equal to 2 drinks/day for men - less than or equal to 1 drink/day for non women Exercise - If capable of engaging in physical activity, at least 40 minutes of moderate to vigorous intensity physical exercise, typically defined as vigorous activity sufficient to break a sweat or noticeably raise heart rate, 3-4 days a week (eg, walking briskly, using an exercise bicycle) may be considered to reduce the risk factors and comorbid conditions that increase the likelihood of recurrent stroke - If disability after ischemic stroke, supervision by a healthcare professional, such as a physical therapist or cardiac rehabilitation professional, at least on initiation of an exercise regimen, may be considered Adopted from the [place] [employer] Attack : A Guideline for Healthcare Professionals From the [place] [employer] Guidelines for the Prevention of Stroke in Patients With Stroke or Transient Ischemic - 2013 documented in this encounter [facility] 06-20-2023 History of Presen t illness Narrative [facility] Initial Visit Consultation is requested by: Ceci Reyes0 [facility] [id number] PCP: Ceci Reyes0 [facility] [place] [address] CEREBROVASCULAR HISTORY Jessica Lazcano is a 72 year old female. Reason for Visit: stroke - Cerebrovascular accident (CVA); Right sided weakness Date of Last Event: 02/21/2023 History of Event: Event History: 02/21-: OSH ED to Admission at [facility] for Right hemiparesis, CVA, hypertensive disorder. Presented with Right-sided weakness and feeling off balance. MRI BRAIN wo, CT/CTA h/n, TTE completed. Discharged home with outpt PT/OT on DAPT for 2 more weeks, statin, and 30 day event monitor. Endorses waking and unable use R arm to turn off alarm, RLE weakness, daughter called 911. BP 253/159. Interval: Here today for evaluation and to discuss if there are any other tests or treatments. Endorses was told not to drive, would like to know if able to drive. New stroke S/S or events: denies. Medications: compliant Diet: regular Activity: resistance bands Antiplatelets/Anticoagulants: Aspirin Statins: Pravastatin - 80 mg Side effects: No Refills needed: No Residual Deficits: Right-sided weakness - LE Current PT/OT/ST: Oupatient with physical therapy - did not need speech therapy, d/c'd from OT Initial Discharge Disposition: Home - daughter's house Current Living Situation: Home alone - on one floor, 3 steps to front porch with hand rail Current use of a mobility aid for walking/getting around: Cane Do you have any planned upcoming surgeries or dental procedures? No Kinsey Casiano RN RN completing documentation PAST MEDICAL HISTORY Diagnosis Date Adjustment disorder with depressed mood Anxiety Carotid stenosis, bilateral 05/30/2023 40-59% CVA (cerebral vascular accident) (HCC) 02/2023 History of endometriosis History of melanoma 10/15/2014 HLD (hyperlipidemia) HTN (hypertension) Osteoporosis 06/12/2023 Other and unspecified hyperlipidemia Overweight (BMI 25.0-29.9) Right sided weakness PAST SURGICAL HISTORY Procedure Laterality Date APPENDECTOMY 1997 SECTION HX PAST SURGICAL HISTORY OF exlporatory laparotomy STRESS ECHO FAMILY HISTORY Problem Relation Age of Onset Cancer Father lung cancer Diabetes Mother Cancer Mother lung cancer Heart Brother Heart Brother Cancer Sister cervical Heart Sister Diabetes Maternal Grandfather Heart Attack Maternal Grandfather Heart disease Maternal Grandmother Cancer Paternal Grandfather stomach Social History Tobacco Use Smoking status: Never Smokeless tobacco: Never Substance Use Topics Alcohol use: Not Currently Comment: less than monthly Drug use: No MEDICATIONS Current Outpatient Medications Medication Sig alendronate (FOSAMAX) 70 mg tablet Take 1 tablet by mouth one time a week. Take with a full glass of water, on an empty stomach; do NOT lie down for 30minutes. pravastatin (PRAVACHOL) 80 mg tablet Take 1 tablet by mouth once daily. traZODone (DESYREL) 50 mg tablet Take 1 tablet by mouth daily at bedtime. diphenhydrAMINE (BENADRYL) 25 mg capsule Take 25 mg by mouth every 6 hours as needed. busPIRone (BUSPAR) 5 mg tablet Take 1 tablet by mouth twice daily. lisinopril (ZESTRIL) 5 mg tablet Take 1 tablet by mouth once daily. metoprolol succinate ER (TOPROL XL) 50 mg 24 hr tablet Take 1 tablet by mouth once daily. famotidine (PEPCID) 20 mg tablet Take 1 tablet by mouth twice daily. aspirin, enteric coated (ASPIRIN, ENTERIC COATED) 81 mg EC tablet Take 1 tablet by mouth once daily. amLODIPine (NORVASC) 10 mg tablet Take 1 tablet by mouth once daily. albuterol (PROVENTIL) 5 mg/mL nebu Inhale 0.5 mL as instructed one time only for 1 dose. 1 DOSE NOW - BACK OFFICE. PLACE 0.5 ML PER DROPPER AND 2.5 ML OF NORMAL SALINE INTO RESERVOIR. No current facility-administered medications for this visit. ALLERGIES ALLERGIES Allergen Reactions Lipitor [Atorvastat* Hives PHYSICAL EXAMINATION BP 139/58 (BP Site: Left Arm, BP Position: Sitting, BP Cuff Size: Large Adult) Pulse 69 Temp 36.7 C (98 F) (Temporal) Resp 14 Ht 156.2 cm (5' 1.5) Wt 71 kg (156 lb 8 oz) SpO2 98% BMI 29.09 kg/m General: Well-developed, well-nourished, in no acute distress. Neurological: Awake, alert, oriented to person, place, and time. Speech fluent, no dysarthria. Naming, repetition, recall, comprehension, calculation intact. Good attention and insight into illness. Cranial Nerves: Extraocular movements intact without nystagmus. Visual gallagher full. Facial sensation normal and mild right facial droop. Motor:right spatic hemiparesis 4/5 Coordination: Rapid alternating movements and [id number] impaired on the right Reflexes: 3+/4 reflexes on right side Gait: limbing gait LABS Cholesterol: Cholesterol, Total (mg/dL) Date Value 03/11/2013 182 Total Cholesterol, Nonfasting (mg/dL) Date Value 04/12/2023 170 LDL Cholesterol (mg/dL) Date Value 03/11/2013 105 LDL Cholesterol, Nonfasting (mg/dL) Date Value 04/12/2023 100 HDL Cholesterol (mg/dL) Date Value 03/11/2013 58 HDL Cholesterol, Nonfasting (mg/dL) Date Value 04/12/2023 46 Triglyceride (mg/dL) Date Value 03/11/2013 95 Triglycerides, Nonfasting (mg/dL) Date Value 04/12/2023 118 Diabetes: No results found for: HBA1C IMAGING MRI brain 02/21/23: left lateral thalamus infarction Carotid duplex 05/30/23: POLO 40-56%, LICA 40-59% Echo 06/14/2010: : EF 60% Patient Entered Questionnaires PROMIS/NeuroQoL Score Percentiles Physical Health 05/05/2023 04/07/2023 Physical Function Percentile 5 4 PROMIS Global Health Scale 04/07/2023 04/07/2023 Physical Health Percentile 41 41 Percentiles provide an indication of how a patient's score ranks in relation to the [place] general population. > 31st percentile is within normal limits or better * < 31st percentile is at least SD worse than population, which may be clinically relevant < 16th percentile is at least 1 SD worse than population and warrants attention Depression Screening: PHQ-9 Scores: PHQ-9 Self-Harm (Item 9) Response: 0 - 9 No to Mild depression 0 - Not at all 10 - 14 Moderate depression 1 - Several Days > 15 Severe depression 2 - More than half the days 3 - Nearly every day Stroke Mechanism and Scales Ischemic or TIA: Ischemic Stroke TOAST Mechanism (CCF-MODIFIED): Small-Vessel Occlusion ([place]) Modified [place] Score: Score: 0 NIH Stroke Scale: LOC: 0 LOC Questions: 0 LOC Commands: 0 LOC Normal Gaze: 0 Visual Gallagher: 0 Facial Palsy: 1 Motor Left Arm: 0 Motor Right Arm: 1 Motor Left Le Motor Right Le Limb Ataxia: 1 Sensory: 1 Language: 0 Dysarthria: 0 Extinction/Neglect: 0 Total Daily NIHSS: 4 IMPRESSION I had the pleasure to see Mrs. Lazcano in the stroke clinic today . Mrs. Lazcano is a 72 years old female patient with past medical history significant for dyslipidemia high blood pressure presented to the clinic for further evaluation of her stroke event that occurred in where she had left small thalamic infarct and right-sided hemiplegia. At that time her blood pressure was not well controlled and her LDL was relatively high she had echocardiography at that time and her ejection fraction reported to be 60% check carotid ultrasound that showed bilateral moderate carotid artery stenosis from 40 to 59%. Mrs. Lazcano her did very well after the stroke she is now walk with minimal support, she still on driving precaution and she is here hoping that she can go back for driving. Currently her risk factors are very well controlled she continued on antiplatelet and reported no side effects so far. At that point I think all of her stroke work-up were completely done, She should continue with physical therapy and occupational therapy specially for the right hand fine movement. We will refer her for driving evaluation I explained to her that she need to maintain her risk factors well controlled and we need to follow on the carotid artery moderate stenosis. PLAN: Carotid duplex after one month Driving evaluation Continue with PT & OT Regular follow up with primary care doctor for health maintenance Lifestyle modification -- Establish goals -Diet -Regular Exercise as discussed -Establish weight goals with primary care doctor Additional stroke reduction measures and stroke warning signs are listed below. Return to see KORIN Please do not hesitate to call if you have any questions. Stroke risk factors goal : Hypertension: Blood pressure goal < 140 Blood pressure today: BP 139/58 (BP Site: Left Arm, BP Position: Sitting, BP Cuff Size: Large Adult) Pulse 69 Temp 36.7 C (98 F) (Temporal) Resp 14 Ht 156.2 cm (5' 1.5) Wt 71 kg (156 lb 8 oz) SpO2 98% BMI 29.09 kg/m Hyperlipidemia: LDL goal < 70 Most recent LDL: LDL Cholesterol (mg/dL) Date Value 03/11/2013 105 LDL Cholesterol, Nonfasting (mg/dL) Date Value 04/12/2023 100 Diabetes: Hba1c goal < 7.0 Most recent Hba1c: No results found for: HBA1C Medical Decision Making: Problems: Minimal: Self-limited or minor problem Data: Unique source(s) for external note(s) reviewed: 3+ Unique test result(s) reviewed: 3+ Unique test(s) ordered: 3+ Risk: Minimal: Minimal risk from testing/treatment Medical Decision Making Level: 2 - Straightforward I spent a total of 60 minutes on the date of service which included preparing to see the patient, [id number] patient care, completing clinical documentation, obtaining and/or reviewing separately obtained history, performing a medically appropriate examination, counseling and educating the patient/family/caregiver, ordering medications, tests, or procedures, and care coordination (not separately reported) SIGNATURE Trista David MD [facility] [address] [place] [address] / [place] [address] Office: [phone] Ceci Vera [address] [place], [place] [id number] Ceci Vera [address] [place], [place] [id number] documented in this encounter [facility] 06-16-2023 Miscellaneous Notes Medication was send to [facility] Pt wants sent to [facility], she told [facility] to restock it. Removed [facility] from Pts pharmacy lists. Sent four days ago. Radha Zamora [email or web address] Patient has been identified by name and date of : Yes, Provider Dr Vera Date 06/16/23 Time 1128. Patient phones for refill(s): Requested Prescriptions Pending Prescriptions Disp Refills alendronate (FOSAMAX) 70 mg tablet 12 tablet 3 Sig: Take 1 tablet by mouth one time a week. Take with a full glass of water, on an empty stomach; do NOT lie down for 30minutes. Date of last office visit in primary care: 05/15/23 Future visit: 08/21/23 Last 2 Encounter Wt Readings: Date: Wt: 05/15/2023 72.2 kg (159 lb 3.2 oz) 12/16/2017 76.7 kg (169 lb) Previous labs/tests for medication: Blood Pressure: BUN (mg/dL) Date Value 04/12/2023 18 12/11/2012 18 Sodium (mmol/L) Date Value 04/12/2023 137 12/11/2012 143 Last 1 Encounter BP Readings: Date: BP: 05/15/2023 118/60 Liver Function: ALT (U/L) Date Value 04/12/2023 18 12/11/2012 20 AST (U/L) Date Value 04/12/2023 27 Please advise. Thank you. Cayla Emery, RN documented in this encounter [facility] 06-16-2023 Miscellaneous Notes Addended by: DARRIAN NOLASCO on: 06/16/2023 11:01 AM Modules accepted: Orders documented in this encounter [facility] 06-16-2023 History of Presen t illness Narrative Episode Visit Count: 12 Therapist That Will Accept/Oversee The Plan Of Care: Darrian Nolasco Start of Care Date: 04/07/23 Onset Date: 02/20/23 Plan of Care Certification Date: 06/12/23 Next Certification Due Date: 08/13/23 REHABILITATION AND SPORTS THERAPY PHYSICAL THERAPY PROGRESS REPORT PLAN OF CARE UPDATE: Assessment: Jessica Lazcano demonstrates moderate improvement in rising from a chair, standing, walking, bending, physical activities, cleaning, and cooking. She has progressed toward goals. Patient continues to present with impairments in ADL's, gait, overall function, and strength that interfere with walking in the community, stair negotiation . Current prognosis is Excellent due to: current objective clinical presentation, good overall health status, positive past response to therapy, within-session changes, good support system/ coping skills . She will benefit from continued skilled therapy services to meet the updated goals for this plan of care as noted below. Goals updated on 06/12/2023. Goals for Episode of Care: created on 04/07/23 through 08/07/23 [place] in home exercise program. Continuing Patient will decrease pain rating by 2 points to meet minimal clinical important difference for numeric pain rating scale. Met Perform ADLs with least with decreased report of fear of falling in 4 Weeks. Met, goal to maintain and improve Perform ADLs without fear of falling in 8 weeks. Met, goal to maintain and improve Patient will improve 5 time sit to stand to demonstrate improvement in functional lower extremity strength. Met, progressed to 30 second STS Increased RLE strength in all planes to at least 4/5. Progressing towards Improve single leg and tandem stance balance to at least 20 seconds to decrease risk of falling. Partially met Improve postural awareness. Met Normal gait. Progressing towards Reciprocal stair negotiation. Not met Patient Goals: get back to walking without the walker Goals added 06/12/2023: Patient will perform 16 repetitions in the 30 seconds STS test to demonstrate improved strength, endurance, and decrease fall risk. Planned Interventions, Frequency, and Duration: 1x/week, 8 weeks Total Number of Visits Planned: 8 Patient to be seen for Therapeutic exercise (46657), Neuromuscular re-education (21052), Manual therapy (39763), Therapeutic activities (93453), Self-halfway management (14045), Gait Training ([id number]), Patient/Family/Caregiver Education, Body Mechanics Training PLAN FOR NEXT VISIT: Continue balance training, foot and ankle strenghtening. Coordination with gait- proper arm swing SUBJECTIVE: Patient Reason for Visit: Overall pt continues to do better. ZShe has no limitations as far as activities go, but she is still unsteady and cannot perform activities for as long as she would like. Functional Limitations: walking in the community, stair negotiation Pain: Pain Pain Level: 0 PROMIS Scales Higher is Better 05/05/2023 04/07/2023 Phys Func - Score 34 (moderate dysfunction) 32 (moderate dysfunction) Phys Func - Percentile 5 % 4 % Self-Eff Symptom - Score 48 (Average) 46 (Average) Self-Eff Symptom - Percentile 42 % 34 % T-scores: mean of general population = 50. 5 points is clinically meaningfully difference Percentiles provide an indication of how the patient's score ranks in relation to the general population. Higher percentile rankings indicate better function/quality of life. 50th percentile is the average of the general population and indicates half of respondents had a worse score. OBJECTIVE MEASURES WITH LEVEL OF FUNCTION: LE Strength R Hip Extension: 4-/5 R Hip Flexion (L2): 5/5 R Hip ABduction: 4+/5 R Knee Extension (L3): 4+/5 R Knee Flexion: 5/5 R Ankle Dorsiflexion (L4): 5/5 R Ankle Plantar Flexion: 5/5 R Great Toes Extension (L5, S1): 5/5 L Hip Extension: 4-/5 L Hip Flexion (L2): 4/5 L Hip ABduction: 4/5 L Knee Extension (L3): 5/5 L Knee Flexion: 5/5 Functional Performance Test Results 30 Second Chair Stand Test: 14 reps Timed Up and Go (sec): 15 sec (with cane) Timed Up and Go - Condition 2 (sec) : 13.5 (No AD) 4 Stage Balance Test Narrow base of support (sec): 10 sec Semi-tandem base of support (sec): 10 sec Tandem base of support (sec): 10 sec Single leg stance - right (sec): 8 sec Single leg stance - left (sec): 10 sec TREATMENT: Neuromuscular Re-Education: 1: NBOS 1x30 seconds 2: Semi-tandem stance 1x30 seconds B 3: Tandem stance 1x30 seconds B 4: SLS 3x max 5: Objective measures obtained Skilled Intervention: Skilled judgment used to assess appropriate program for balance and coordination activity. Ensured patient safety with use of gait belt Billing KX Modifier : Therapist attests that services rendered are medically necessary. Neuromuscular Re-Education Treatment Minutes: 39 Total Treatment Time Minutes (timed/untimed): 39 Session Start Time : 951 Session Stop Time : 1030 Darrian Nolasco PT documented in this encounter [facility] 06-06-2023 Miscellaneous Notes OSH imaging/records pending: June 06, 2023 Faxed over an Authorization of LEENA Form to the Medical Records Department at [facility] to have images push through to the PACS System, and records faxed over to the office. documented in this encounter [facility] 06-05-2023 History of Presen t illness Narrative Episode Visit Count: 11 Therapist That Will Accept/Oversee The Plan Of Care: Darrian Nolasco Start of Care Date: 04/07/23 Onset Date: 02/20/23 Plan of Care Certification Date: 04/07/23 Next Certification Due Date: 06/06/23 Patient Identified by Name and Date of : Yes REHABILITATION AND SPORTS THERAPY PHYSICAL THERAPY TREATMENT NOTE ASSESSMENT: Jessica Lazcano tolerated the session with fatigue and no issues. She demonstrated improvements in stability with stepping onto BOSU and R SLS. The patient will continue to benefit from ongoing skilled physical therapy to progress toward set goals. PLAN FOR NEXT VISIT: Continue with balance SUBJECTIVE: Patient Reason for Visit: Pt reports that she has been standing cooking in the kitchen, standing for approx 45 minutes to an hour. Pt feeling good today. Pain: Pain Pain Level: 0 Post Treatment Pain Post Treatment Pain Level: 0 OBJECTIVE MEASURES WITH LEVEL OF FUNCTION: Pt ambulating around gym without AD with minimal R toe drag on ground with swing phase of gait. TREATMENT: Therapeutic Exercise: 1: *Seated ankle eversion wiht pink theraband 2x10 Skilled Intervention: Patient was educated in proper exercise technique and purpose for exercises. Reviewed and educated patient on additions/changes for home exercise program as above (*). Skilled judgment was provided in selection of appropriate interventions. Provided written instruction for home exercise program to facilitate proper performance and compliance. Correct performance of therapeutic exercises was facilitated with verbal and visual cuing. Neuromuscular Re-Education: 1: NBOS 1x30 seconds 2: Semi-tandem stance 1x30 seconds B 3: Tandem stance 1x30 seconds B 4: L SLS x14 seconds, 2 taps on parallel bars 5: R SLS ~ 3 seconds, RLE falling in with SLS 6: Step ups on BOSU 2x15 RLE Skilled Intervention: Skilled judgment used to assess appropriate program for balance and coordination activity. Ensured patient safety with use of gait belt. Billing Therapeutic Exercise Treatment Minutes: 5 Neuromuscular Re-Education Treatment Minutes: 27 Total Treatment Time Minutes (timed/untimed): 32 MATTHEW Baltazar PT documented in this encounter [facility] 05-30-2023 Miscellaneous Notes Recommend OV for evaluation of new complaint. See pt message and advise. Pt seen on 05/15/23. Pt notified that PCP is out of the office today, will address once returns to office. Sammie Hernandez Ma documented in this encounter [facility] 05-30-2023 History of Presen t illness Narrative Radiology Service Progress Note PATIENT NAME: Jessica Lazcano DATE OF SERVICE: May 30, 2023 TIME: 1:06 PM PATIENT IDENTITY VERIFICATION COMPLETED USING TWO (2) IDENTIFIERS: Name and Date of confirmed by patient verbally. FALL SCREENING: Has the patient had 2 falls in the last year or 1 fall with injury or currently using an Ambulatory Assistive Device (Walker, Cane, Wheelchair, Crutches, etc.)? No PATIENT GENDER DATA: Female. status: : No status: NO. PATIENT RELEVANT IMPLANT DATA REVIEWED: Not Applicable RADIOLOGY DEPARTMENT: Bone Density PERIPHERAL IV DATA: Not applicable SIGNED BY: RT Daniel(R) May 30, 2023 1:06 PM documented in this encounter [facility] 05-29-2023 History of Presen t illness Narrative Episode Visit Count: 10 Therapist That Will Accept/Oversee The Plan Of Care: Darrian Gaurav Start of Care Date: 04/07/23 Onset Date: 02/20/23 Plan of Care Certification Date: 04/07/23 Next Certification Due Date: 06/06/23 Patient Identified by Name and Date of : Yes REHABILITATION AND SPORTS THERAPY PHYSICAL THERAPY TREATMENT NOTE ASSESSMENT: Jessica Lazcano tolerated the session with fatigue and no issues. She demonstrated improvements in confidence with balance exercises on uneven surfaces. The patient will continue to benefit from ongoing skilled physical therapy to progress toward set goals. PLAN FOR NEXT VISIT: Continue with balance and functional strengthening, SUBJECTIVE: Patient Reason for Visit: Pt reports that going very good. Pt states completing tasks around the house without using her cane, but is usally close by something in case she gets unstready. Pain: Pain Pain Level: 0 Post Treatment Pain Post Treatment Pain Level: 0 OBJECTIVE MEASURES WITH LEVEL OF FUNCTION: TREATMENT: Therapeutic Exercise: 1: SciFit x5 min, seat setting 12 (subjective taken and discussed activity modifcation, pacing) 2: STS x 15 3: Ankle PF into ball 2x10 Skilled Intervention: Patient was educated in proper exercise technique and purpose for exercises. Skilled judgment was provided in selection of appropriate interventions. Correct performance of therapeutic exercises was facilitated with verbal and visual cuing. Neuromuscular Re-Education: 1: Wobble board front to back 2x10, then static hold 5 seconds 2: Wobble board side to side 2x10 , then static hold for 16 seconds 3: Tandem walking on foam beam x 2 rounds BUE support, x 2 rounds without UE support, occasional tap on parallel bar 4: Side stepping on foam beam x 2 rounds BUE support, x 2 rounds without UE support, occasional tap on parallel bar 5: Taps on BOSU 1x10 with BUE assist, 1x10 with 1 UE assist 6: Step ups on BOSU 2x10 RLE Skilled Intervention: Skilled judgment used to assess appropriate program for balance and coordination activity. Ensured patient safety with use of gait belt. Billing Therapeutic Exercise Treatment Minutes: 11 Neuromuscular Re-Education Treatment Minutes: 31 Total Treatment Time Minutes (timed/untimed): 42 Corie Segal, MATTHEW Peters, PT documented in this encounter [facility] 05-22-2023 Miscellaneous Notes TC to patient who verbalized understanding of providers message and has no questions at this time. NOEL Gunter Vm left for patient to return call for results or she may review [employer] message for PCP's message. ----- Message from Ceci Vrea MD sent at 05/19/2023 8:01 AM EDT ----- Negative mammogram. Repeat in 1 year. documented in this encounter [facility] 05-19-2023 Miscellaneous Notes May 19, 2023 PID: [id number] Jessica aLzcano [address] [place] [address] Dear Ms. Lazcano, We are pleased to inform you that the results of your recent breast imaging exam on 05/18/2023 are normal. Early detection of cancer is very important. We also understand recommendations regarding breast cancer screening are controversial. Please discuss with your primary care provider which strategy is best for you and whether a mammogram is right for you. Your imaging studies and report will be kept on file at [facility] as part of your permanent medical record and are available for your continuing care. Thank you for allowing us to help in meeting your health care needs. Sincerely, Dr. Camara Interpreting Radiologist [facility] (Normal over 40) documented in this encounter [facility] 05-18-2023 History of Presen t illness Narrative Episode Visit Count: 9 Therapist That Will Accept/Oversee The Plan Of Care: Darrian Nolasco Start of Care Date: 04/07/23 Onset Date: 02/20/23 Plan of Care Certification Date: 04/07/23 Next Certification Due Date: 06/06/23 REHABILITATION AND SPORTS THERAPY PHYSICAL THERAPY TREATMENT NOTE ASSESSMENT: Jessiac Lazcano tolerated the session with fatigue and no issues. She demonstrated improvements in tolerance for hurdles and gait demonstrating improved SLS time on R. The patient will continue to benefit from ongoing skilled physical therapy to progress toward set goals. PLAN FOR NEXT VISIT: Continue balance work and improving R SLS to prevent falls with walking SUBJECTIVE: Patient Reason for Visit: Pt had a very busy day over the weekend and she experienced severe fatigue for 2 days after. Doing better today, but still a little sluggish Pain: Pain Pain Level: 0 OBJECTIVE MEASURES WITH LEVEL OF FUNCTION: TREATMENT: Therapeutic Exercise: 1: SciFit x5 min, seat setting 12 (subjective taken and discussed activity modifcation, pacing) 2: STS x20 Skilled Intervention: Patient was educated in proper exercise technique and purpose for exercises. Skilled judgment was provided in selection of appropriate interventions. Neuromuscular Re-Education: 1: NBOS on foam 1x30 seconds EO 2: NBOS on foam 1x30 seconds EC 3: Semitandem stance on foam 2x30 seconds B 4: Tandem stance on level surface 1x30 seconds B 5: Taps on BOSU 1x10 with BUE assist 6: Step ups onto airex pad x10/side 7: Hurdles in // bars 3x down and back leading with each side 8: Wobble board taps x30 each way, and static holds x30 sec each Skilled Intervention: Skilled judgment used to assess appropriate program for balance and coordination activity. Ensured patient safety with use of gait belt Billing Therapeutic Exercise Treatment Minutes: 9 Neuromuscular Re-Education Treatment Minutes: 35 Total Treatment Time Minutes (timed/untimed): 44 Darrian Nolasco PT documented in this encounter [facility] 05-18-2023 History of Presen t illness Narrative Radiology Service Progress Note PATIENT NAME: Jessica Lazcano DATE OF SERVICE: May 18, 2023 TIME: 11:17 AM PATIENT IDENTITY VERIFICATION COMPLETED USING TWO (2) IDENTIFIERS: Name and Date of confirmed by patient verbally. FALL SCREENING: Has the patient had 2 falls in the last year or 1 fall with injury or currently using an Ambulatory Assistive Device (Walker, Cane, Wheelchair, Crutches, etc.)? Yes, Patient High Risk for Falls What interventions were put in place to prevent falls during this visit? Increased Observations by Caregivers PATIENT GENDER DATA: Female. status: : No status: NO. PATIENT RELEVANT IMPLANT DATA REVIEWED: Not Applicable RADIOLOGY DEPARTMENT: Mammography PERIPHERAL IV DATA: Not applicable SIGNED BY: Chata Butts [employer] Matheus May 18, 2023 11:17 AM documented in this encounter [facility] 05-15-2023 Instructions Ceci Vera MD - 05/15/2023 1:47 PM EDT Please follow up with neurology and get your carotid US as discussed. BONE MINERAL DENSITY PATIENT INSTRUCTIONS ========= Bone mineral density testing measures the amount of calcium in certain parts of your bones. This information determines how strong your bones are. The test is used to detect osteoporosis, a disease in which the bone's mineral content and density are low, increasing a person's risk of fractures. The lumbar spine (lower back) and the hip are the skeletal sites usually examined. For the test, remember that: 1. You cannot take this test if you are . 2. Eat a normal diet on the day of the test. 3. Take your medications as you normally would. 4. DO NOT take calcium supplements (such as Tums) for 24 hours before the test. 5. On the day of the test, leave valuables (jewelry or credit cards) at home. 6. The test should be performed prior to oral, rectal or IV contrast studies, or at least 7 days after any of these studies. For the test, you may be asked to wear a hospital gown. You will lie on your back, on a padded table, in a comfortable position. Generally, you can resume your usual activities immediately. documented in this encounter [facility] 05-15-2023 History of Presen t illness Narrative Chief Complaint Patient presents with: Establish Care Follow Up: 2 month follow up HPI Jessica Lazcano is a 72 year old female who presents here today for Above Complaints.. CVA: no recurrent symptoms on current regimen. Patient has not followed up with neurology since our last OV. Is going to PT 1 day per week now for right sided weakness. Discharged from OT. Feels like strength is improving. Doing home exercises and is transitioning from walker to cane. No falls. Discontinued her plavix. Is still on ASA. Has been able to complete 2 quilts since she was here last. Needs handicap placard. Still having trouble sleeping on melatonin. Requesting alternative rx. States that she had stool sample checked for colon cancer when inpatient and was negative. Due for screening mammogram. No history of DXA. Patient has living will and DPOA at home which she will bring in for our records. FULL CODE. Refusing vaccinations today. Past medical history, appointments, medications, allergies reviewed. Previous Medical History PAST MEDICAL HISTORY Diagnosis Date Adjustment disorder with depressed mood Anxiety CVA (cerebral vascular accident) (HCC) 02/2023 History of endometriosis History of melanoma 10/15/2014 Other and unspecified hyperlipidemia Overweight (BMI 25.0-29.9) Right sided weakness Previous Surgical History PAST SURGICAL HISTORY Procedure Laterality Date STRESS ECHO Family History FAMILY HISTORY Problem Relation Age of Onset Cancer Sister cervical Heart Sister Diabetes Mother Cancer Mother lung cancer Cancer Father lung cancer Patient Allergies ALLERGIES Allergen Reactions Lipitor [Atorvastat* Hives Current Medications Current Outpatient Medications on File Prior to Visit Medication Sig diphenhydrAMINE (BENADRYL) 25 mg capsule Take 25 mg by mouth every 6 hours as needed. busPIRone (BUSPAR) 5 mg tablet Take 1 tablet by mouth twice daily. pravastatin (PRAVACHOL) 40 mg tablet Take 1 tablet by mouth once daily. lisinopril (ZESTRIL) 5 mg tablet Take 1 tablet by mouth once daily. metoprolol succinate ER (TOPROL XL) 50 mg 24 hr tablet Take 1 tablet by mouth once daily. famotidine (PEPCID) 20 mg tablet Take 1 tablet by mouth twice daily. aspirin, enteric coated (ASPIRIN, ENTERIC COATED) 81 mg EC tablet Take 1 tablet by mouth once daily. amLODIPine (NORVASC) 10 mg tablet Take 1 tablet by mouth once daily. benzonatate (TESSALON PERLE) 100 mg capsule Take 1 capsule by mouth three times daily as needed. clopidogrel (PLAVIX) 75 mg tablet Take 75 mg by mouth once daily. (Patient not taking: Reported on 05/15/2023) albuterol (PROVENTIL) 5 mg/mL nebu Inhale 0.5 mL as instructed one time only for 1 dose. 1 DOSE NOW - BACK OFFICE. PLACE 0.5 ML PER DROPPER AND 2.5 ML OF NORMAL SALINE INTO RESERVOIR. No current facility-administered medications on file prior to visit. Social History Social History Tobacco Use Smoking status: Never Smokeless tobacco: Never Substance Use Topics Alcohol use: Yes Comment: occasional Drug use: No Review of Symptoms REVIEW OF SYSTEMS GENERAL: No weight loss, malaise or fevers RESPIRATORY: Negative for cough, hemoptysis, wheezing, COPD, dyspnea or shortness of breath CARDIOVASCULAR: Negative for chest pain, leg swelling, hypertension, CHF or palpitations GI: No nausea, vomiting, or diarrhea SKIN: Negative for lesions, rash, and itching EXAM: BP 118/60 Pulse 66 Resp 16 Wt 72.2 kg (159 lb 3.2 oz) SpO2 99% General Appearance: Well appearing, alert, in no acute distress, well-hydrated, well nourished.. Skin: Skin color, texture, turgor normal, no suspicious rashes or lesions. Lungs: Lungs clear to auscultation. No wheezing, rhonchi, rales.. Heart: RRR without murmur, gallop, or rubs. No ectopy. Abdomen: Normal abdominal exam, Abdomen soft, non-tender. Bowel sounds normal. No masses, organomegaly. Extremities: No deformities, edema, skin discoloration, clubbing or cyanosis. Good capillary refill. . Health Maintenance List COVID-19 VACCINE(1) Never done HEPATITIS C SCREENING Never done SHINGRIX VACCINE(1 of 2) Never done MAMMOGRAM due on 04/11/2014 COLORECTAL CANCER SCREENING due on 04/11/2014 DTAP,TDAP,TD(2 - Td or Tdap) due on 08/01/2017 BONE DENSITY Never done PNEUMOCOCCAL: 65+(1 - PCV) Never done ADVANCE DIRECTIVE DISCUSSION Never done INFLUENZA(Season Ended) due on 07/21/2023 ANNUAL PCP TEAM CHRONIC DISEASE VISIT due on 03/13/2024 BP CONTROLLED (<130/80) due on 03/13/2024 DIABETES SCREEN due on 04/12/2026 LIPID SCREEN due on 04/12/2028 Data reviewed Component Latest Ref Rng & Units 04/12/2023 Protein, Total 6.3 - 8.0 g/dL 7.6 Albumin 3.9 - 4.9 g/dL 4.8 Calcium 8.5 - 10.2 mg/dL 10.5 (H) Bilirubin, Total 0.2 - 1.3 mg/dL 0.4 Alkaline Phosphatase 34 - 123 U/L 62 AST 13 - 35 U/L 27 ALT 7 - 38 U/L 18 Glucose 74 - 99 mg/dL 102 (H) BUN 7 - 21 mg/dL 18 Creatinine 0.58 - 0.96 mg/dL 0.91 Sodium 136 - 144 mmol/L 137 Potassium 3.7 - 5.1 mmol/L 4.4 Chloride 97 - 105 mmol/L 102 CO2 22 - 30 mmol/L 19 (L) Anion Gap 9 - 18 mmol/L 16 eGFR >=60 mL/min/1.73m 68 Total Cholesterol, Nonfasting <200 mg/dL 170 Triglycerides, Nonfasting <150 mg/dL 118 HDL Cholesterol, Nonfasting >39 mg/dL 46 LDL Cholesterol, Nonfasting <100 mg/dL 100 (H) Non HDL Cholesterol, Nonfasting <130 mg/dL 124 VLDL Cholesterol, Nonfasting <30 mg/dL 24 Total Chol/HDL Ratio, Nonfasting <5.10 mg/dL 3.70 LDL/HDL Ratio, Nonfasting <2.54 mg/dL 2.17 ASSESSMENT/PLAN: 1. Encounter to establish care - ICD9: V65.8, ICD10: Z76.89 (primary diagnosis) Medical history updated today. Obtain records from previous PCP. 2. Cerebrovascular accident (CVA), unspecified mechanism (HCC) - ICD9: 434.91, ICD10: I63.9 No recurrent stroke symptoms on current regimen. Recommend f/u with neurology and carotid US. Discussed goal LDL <70. Will increase pravastatin to 80 mg daily and recheck in 2-3 months. Discussed Crestor, but patient is hesitant due to Lipitor allergy. - LIPID PANEL BASIC - PARKING FOR HANDICAPPED 3. Right sided weakness - ICD9: 728.87, ICD10: R53.1 Improving. Continue PT as recommended and use cane/walker for ambulation. 4. Essential hypertension, benign - ICD9: 401.1, ICD10: I10 - Controlled - Continue current medications - Recommend home blood pressure monitoring, to bring results to next visit - Encouraged sodium restriction, DASH or Mediterranean diet - Recommend regular aerobic exercise 5. Chronic insomnia - ICD9: 780.52, ICD10: F51.04 Start trazodone qhs. Call if not improving symptoms in 1-2 weeks. - TRAZODONE 50 MG TABLET 6. Anxiety - ICD9: 300.00, ICD10: F41.9 Controlled on current regimen 7. Overweight (BMI 25.0-29.9) - ICD9: 278.02, ICD10: E66.3 Weight decreasing - Behavioral intervention 8. Encounter for screening for osteoporosis - ICD9: V82.81, ICD10: Z13.820 - DXA-AXIAL SKELETON 9. Screening mammogram for breast cancer - ICD9: V76.12, ICD10: Z12.31 - Set up for mammogram, yearly mammogram recommended - [facility] SCREENING 10. Asymptomatic postmenopausal state - ICD9: V49.81, ICD10: Z78.0 - DXA-AXIAL SKELETON Ceci Vera MD documented in this encounter [facility] 05-11-2023 History of Presen t illness Narrative Episode Visit Count: 8 Therapist That Will Accept/Oversee The Plan Of Care: Darrian Nolasco Start of Care Date: 04/07/23 Onset Date: 02/20/23 Plan of Care Certification Date: 04/07/23 Next Certification Due Date: 06/06/23 REHABILITATION AND SPORTS THERAPY PHYSICAL THERAPY PROGRESS REPORT PLAN OF CARE UPDATE: Assessment: Jessica Lazcano demonstrates moderate improvement in rising from a chair, standing, walking, and recreational activities. She has progressed toward goals. Patient continues to present with impairments in ADL's, balance, gait, overall function, and strength that interfere with walking in the community, stair negotiation, heavy exertion . Current prognosis is Excellent due to: current objective clinical presentation, good overall health status, positive past response to therapy, within-session changes, good support system/ coping skills . She will benefit from continued skilled therapy services to meet the updated goals for this plan of care as noted below. Goals updated on 05/11/2023. Goals for Episode of Care: created on 04/07/23 through 06/06/23 [place] in home exercise program. Continuing Patient will decrease pain rating by 2 points to meet minimal clinical important difference for numeric pain rating scale. Met Perform ADLs with least with decreased report of fear of falling in 4 Weeks. Met, goal to maintain and improve Perform ADLs without fear of falling in 8 weeks. Progressing towards Patient will improve 5 time sit to stand to demonstrate improvement in functional lower extremity strength. Met, goal to improve to age related norm Increased RLE strength in all planes to at least 4/5. Progressing towards Improve single leg and tandem stance balance to at least 20 seconds to decrease risk of falling. Partially met Improve postural awareness. Met Normal gait. Progressing towards Reciprocal stair negotiation. Not met Patient Goals: get back to walking without the walker Planned Interventions, Frequency, and Duration: 1x/week, 4 weeks Total Number of Visits Planned: 4 Patient to be seen for Therapeutic exercise (31695), Neuromuscular re-education (18930), Manual therapy (60553), Therapeutic activities (44022), Self-halfway management (27826), Gait Training (52971), Patient/Family/Caregiver Education, Body Mechanics Training PLAN FOR NEXT VISIT: Continue strength and balance. May try working on R arm swing SUBJECTIVE: Patient Reason for Visit: Overall pt doing much better. She has spent a few nights at home without issues, getting around better, and she is focusing hard on lifting her foot up to not catch it when walking. Pt still gets fatigued at the end of the day or when she does a lot, which can be frustrating. Encouraged by progress, but still striving for more. Functional Limitations: walking in the community, stair negotiation, heavy exertion Pain: Pain Pain Level: 0 PROMIS Scales Higher is Better 05/05/2023 04/07/2023 Phys Func - Score 34 (moderate dysfunction) 32 (moderate dysfunction) Phys Func - Percentile 5 % 4 % Self-Eff Symptom - Score 48 (Average) 46 (Average) Self-Eff Symptom - Percentile 42 % 34 % T-scores: mean of general population = 50. 5 points is clinically meaningfully difference Percentiles provide an indication of how the patient's score ranks in relation to the general population. Higher percentile rankings indicate better function/quality of life. 50th percentile is the average of the general population and indicates half of respondents had a worse score. OBJECTIVE MEASURES WITH LEVEL OF FUNCTION: LE Strength R Hip Flexion (L2): 4+/5 R Hip ABduction: 4/5 R Knee Extension (L3): 4/5 R Knee Flexion: 5/5 R Ankle Dorsiflexion (L4): 4+/5 R Ankle Plantar Flexion: 4+/5 R Great Toes Extension (L5, S1): 4+/5 Functional Performance Test Results 5 Times Sit to Stand Test : 9.76 sec Timed Up and Go (sec): 14.88 sec Timed Up and Go - Condition 2 (sec) : 18.54 4 Stage Balance Test Narrow base of support (sec): 30 sec Semi-tandem base of support (sec): 30 sec Tandem base of support (sec): 30 sec Single leg stance - right (sec): 0 sec Single leg stance - left (sec): 15 sec TREATMENT: Therapeutic Exercise: 1: SciFit x6 min, seat setting 12 2: STS x20 Skilled Intervention: Patient was educated in proper exercise technique and purpose for exercises. Skilled judgment was provided in selection of appropriate interventions. Correct performance of therapeutic exercises was facilitated with verbal cuing. Therapeutic Activity: 1: 5x STS 2: TUG Skilled Intervention: Insured patient safety with use of gait belt Neuromuscular Re-Education: 1: 4 stage balance Skilled Intervention: Skilled judgment used to assess appropriate program for balance and coordination activity. Ensured patient safety with use of gait belt Self-Shelter Management: 1: Spent significant time discussing post stroke rehab, expectations, concepts of neuroplasticity, motor unit recruitment Skilled Intervention: Skilled judgment in the selection of proper modification for activity of daily living/home management based on clinical presentation, deficits, and needs. Reviewed patient specific diagnosis in relation to activities of daily living/home management. Activity progression based on professional judgement. Billing Therapeutic Exercise Treatment Minutes: 10 Therapeutic Activity Treatment Minutes: 10 Neuromuscular Re-Education Treatment Minutes: 5 Self-Care/Home Management Treatment Minutes: 15 Total Treatment Time Minutes (timed/untimed): 40 Darrian Nolasco PT documented in this encounter [facility] 05-09-2023 History of Presen t illness Narrative Episode Visit Count: 7 Therapist That Will Accept/Oversee The Plan Of Care: Darrian Nolasoc Start of Care Date: 04/07/23 Onset Date: 02/20/23 Plan of Care Certification Date: 04/07/23 Next Certification Due Date: 06/06/23 Patient Identified by Name and Date of : Yes REHABILITATION AND SPORTS THERAPY PHYSICAL THERAPY TREATMENT NOTE ASSESSMENT: Jessica Lazcano tolerated the session with fatigue and no issues. She demonstrated improvements in tolerance for balance and exercises today. The patient will continue to benefit from ongoing skilled physical therapy to progress toward set goals. PLAN FOR NEXT VISIT: Continue with baolance and LLE strengthening. SUBJECTIVE: Patient Reason for Visit: Pt reports that last session was a good challenge, but wasn't too much. Pt states she is now discharged from OT . HSesvin has been using her cane in the house. Pain: Pain Pain Level: 0 OBJECTIVE MEASURES WITH LEVEL OF FUNCTION: Decreased stability with RLE behind LLE with tandem stance compared to LLE behind RLE. TREATMENT: Therapeutic Exercise: 1: SciFit x6 min, seat setting 12 2: STS x20 Skilled Intervention: Patient was educated in proper exercise technique and purpose for exercises. Skilled judgment was provided in selection of appropriate interventions. Correct performance of therapeutic exercises was facilitated with verbal and visual cuing. Neuromuscular Re-Education: 1: NBOS on foam 1x30 seconds EO 2: NBOS on foam 1x30 seconds EC 3: Semitandem stance on foam 2x30 seconds B 4: Tandem stance on level surface 1x30 seconds B 5: Taps on BOSU 1x10 with BUE assist 6: Alt taps on BOSU with 1 UE assist 2x10B 7: Step ups on BOSU 2x5 B Skilled Intervention: Skilled judgment used to assess appropriate program for balance and coordination activity. Ensured patient safety with use of gait belt. Billing Therapeutic Exercise Treatment Minutes: 9 Neuromuscular Re-Education Treatment Minutes: 36 Total Treatment Time Minutes (timed/untimed): 45 Corie MATTHEW Segal PT documented in this encounter [facility] 05-05-2023 Note HNO ID: [id number] Author: JANE Schwab/Eric Service: ? Author Type: Occupational Therapist Type: Progress Notes Filed: 05/05/2023 11:48 AM Note Text: Summary: OT progress note / discharge Episode Visit Count: 2 Therapist That Will Accept/Oversee The Plan Of Care: Jennyfer Nava Start of Care Date: 04/07/23 Onset Date: 02/22/23 Patient Identified by Name and Date of : Yes REHABILITATION AND SPORTS THERAPY OCCUPATIONAL THERAPY DISCONTINUANCE OF CARE PLAN OF CARE UPDATE: Assessment: Jessica Lazcano is discontinued from Occupational Therapy services due to Patient/Clinician mutual decision to discontinue current plan of care.. Patient was seen for 2 visits from Start of Care Date: 04/07/23 to 05/05/2023 and treatment included: Therapeutic exercise, Therapeutic activities, and Self-halfway management. Goals for Episode of Care created on 04/07/23 through 07/07/23 Progress note due 05/08 Patient will complete HEP at [place] level. GOAL MET Patient will demonstrate increase in Right shoulder strength to 4/5 during manual muscle testing in order to improve function for light functional tasks. 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 NOT MET Patient will demonstrate improved neuromuscular coordination as evidenced by improved 9-hole peg test to Less than 35 sec improve function for light functional tasks. NOT MET Patient Goals: Resume normal function of R side Pt has made significant progress with functional tasks at home. She has made improvements in overall strength but cont. To lack shoulder flex/abd strength and encouraged to cont. Completing those exercises. Fine motor skill goals were almost met this date. Pt has good understanding of HEP and recommendations. Pt feels comfortable to d/c this date with ongoing home program. SUBJECTIVE: OT follow up tx visit: Monthly check in; pt reports that she has been progressing and has been completing quilts, cutting, and all activities Functional Limitations: lifting, physical activities, driving, carrying, cooking, cleaning, gripping Pain: Pain Pain Level: 0 Post Treatment Pain Post Treatment Pain Level: No Change PROMIS Scales Higher is Better 05/05/2023 04/07/2023 Phys Func - Score 34 (moderate dysfunction) 32 (moderate dysfunction) Phys Func - Percentile 5 % 4 % Self-Eff Symptom - Score 48 (Average) 46 (Average) Self-Eff Symptom - Percentile 42 % 34 % T-scores: mean of general population = 50. 5 points is clinically meaningfully difference Percentiles provide an indication of how the patient's score ranks in relation to the general population. Higher percentile rankings indicate better function/quality of life. 50th percentile is the average of the general population and indicates half of respondents had a worse score. OBJECTIVE MEASURES WITH LEVEL OF FUNCTION: Hand Strength R Psychiatry Adult Physician Position 2 (lbs): 20 lbs L Psychiatry Adult Physician Position 2 (lbs): 31 lbs UE AROM R UE AROM: WFL L UE AROM: WFL UE and Cervical Strength R Shoulder Flexion: 3+/5 R Shoulder Abduction (C5): 3+/5 R Shoulder Internal Rotation: 4/5 R Shoulder External Rotation: 4/5 R Elbow Extension (C7): 4+/5 R Elbow Flexion (C6): 4/5 Instrumental Activities of Daily Living Cooking: Minimal Assistance Cleaning: Minimal Assistance Laundry: Minimal Assistance Driving: Total Assistance Functional Performance Test Results 9 Hole Peg Test Right (seconds): 34 TREATMENT: Therapeutic Exercise: 2: Review of shoulder exercises and progression for HEP Skilled Intervention: Reviewed and educated patient on additions/changes for home exercise program as above (*). Correct performance of therapeutic exercises was facilitated with verbal and visual cuing. Therapeutic Activity: 1: Re-assessment ; discussion of POC and predicted level of function Skilled Intervention: Educated on proper/safe technique for activities performed today. Activity progression based on professional judgment. Assisted proper completion of task with verbal and visual cueing and correction of abnormal movement patterns. Jennyfer Nava, OTR/L [facility] 05-04-2023 History of Presen t illness Narrative Episode Visit Count: 6 Therapist That Will Accept/Oversee The Plan Of Care: Darrian Nolasco Start of Care Date: 04/07/23 Onset Date: 02/20/23 Plan of Care Certification Date: 04/07/23 Next Certification Due Date: 06/06/23 REHABILITATION AND SPORTS THERAPY PHYSICAL THERAPY TREATMENT NOTE ASSESSMENT: Jessica Lazcano tolerated the session with fatigue and no issues. She demonstrated improvements in balance and gait, as well as safety with less instances of catching right foot on ground. The patient will continue to benefit from ongoing skilled physical therapy to progress toward set goals. PLAN FOR NEXT VISIT: Continue work on hurdles SUBJECTIVE: Patient Reason for Visit: Pt has spent the last 2 nights at her home without any issues. Doing everything she needs to do appropriately and safely. She feels confident and noptimistic about her progression Pain: Pain Pain Level: 0 OBJECTIVE MEASURES WITH LEVEL OF FUNCTION: TREATMENT: Therapeutic Exercise: 1: *SciFit x6 min, seat setting 12 2: STS x30 Skilled Intervention: Patient was educated in proper exercise technique and purpose for exercises. Skilled judgment was provided in selection of appropriate interventions. Neuromuscular Re-Education: 1: NBOS 2x30 sec EC 2: Semitandem stance 2x30 sec EC 3: Tandem stance 2x30 sec EO 4: Step ups onto foam pad x10 5: Taps on foam pad x10 on R, 2x10 on L 6: Taps on BOSU ball 2x10/side 7: Wobble board taps both ways x20 8: Wobble board static holds both ways x30 sec 9: Hurdles 6x6 front and side stepping over with CGA Skilled Intervention: Skilled judgment used to assess appropriate program for balance and coordination activity. Ensured patient safety with use of Gait belt Gait Trainin: Walking with no AD and CGA/gait belt 1x100 feet; Walking with SPC 1x100 feet CGA and gait belt Skilled Intervention: Facilitated proper gait cycle with the use of verbal, visual, and tactile cues for correction of gait deviations identified in the objective section above. Gait belt utilized during session for safety. Billing Therapeutic Exercise Treatment Minutes: 8 Neuromuscular Re-Education Treatment Minutes: 25 Gait Training Treatment Minutes: 8 Total Treatment Time Minutes (timed/untimed): 41 Darrian Nolasco PT documented in this encounter [facility] 05-02-2023 History of Presen t illness Narrative Episode Visit Count: 5 Therapist That Will Accept/Oversee The Plan Of Care: Darrian Nolasco Start of Care Date: 04/07/23 Onset Date: 02/20/23 Plan of Care Certification Date: 04/07/23 Next Certification Due Date: 06/06/23 REHABILITATION AND SPORTS THERAPY PHYSICAL THERAPY TREATMENT NOTE ASSESSMENT: Jessica Lazcano tolerated the session with fatigue and no issues. She demonstrated improvements in balance and gait. The patient will continue to benefit from ongoing skilled physical therapy to progress toward set goals. PLAN FOR NEXT VISIT: May try hurdles SUBJECTIVE: Patient Reason for Visit: No issues today, doing well Pain: Pain Pain Level: 0 OBJECTIVE MEASURES WITH LEVEL OF FUNCTION: TREATMENT: Therapeutic Exercise: 1: *SciFit x6 min, seat setting 12 2: STS x10 Skilled Intervention: Patient was educated in proper exercise technique and purpose for exercises. Skilled judgment was provided in selection of appropriate interventions. Correct performance of therapeutic exercises was facilitated with verbal cuing. Neuromuscular Re-Education: 1: NBOS 2x30 sec EC 2: Semitandem stance 2x30 sec EC 3: Tandem stance 2x30 sec EO 4: Step ups onto foam pad x10 5: Taps on foam pad x10 on R, 2x10 on L 6: Taps on BOSU ball 2x10/side 7: Wobble board taps both ways x20 8: Wobble board static holds both ways x30 sec Skilled Intervention: Skilled judgment used to assess appropriate program for balance and coordination activity. Ensured patient safety with use of gait belt Gait Trainin: Walking with no AD and CGA/gait belt 1x50 feet; Walking with SPC 1x100 feet CGA and gait belt Skilled Intervention: Gait belt utilized during session for safety. Skilled judgment used to assess selection, proper sizing, and proper use of assistive device. Billing Therapeutic Exercise Treatment Minutes: 8 Neuromuscular Re-Education Treatment Minutes: 30 Gait Training Treatment Minutes: 5 Total Treatment Time Minutes (timed/untimed): 43 Darrian Nolasco PT documented in this encounter [facility] 04-27-2023 History of Presen t illness Narrative Episode Visit Count: 4 Therapist That Will Accept/Oversee The Plan Of Care: Darrian Nolasco Start of Care Date: 04/07/23 Onset Date: 02/20/23 Plan of Care Certification Date: 04/07/23 Next Certification Due Date: 06/06/23 REHABILITATION AND SPORTS THERAPY PHYSICAL THERAPY TREATMENT NOTE ASSESSMENT: Jessica Lazcano tolerated the session with fatigue and no issues. She demonstrated improvements in unassisted ambulation. The patient will continue to benefit from ongoing skilled physical therapy to progress toward set goals. PLAN FOR NEXT VISIT: May practice with cane for ambulation at home SUBJECTIVE: Patient Reason for Visit: Pt doing well today. Notes she was able to walk a couple of steps at home without the walker and made dinner for the first time since her CVA. Pain: Pain Pain Level: 0 OBJECTIVE MEASURES WITH LEVEL OF FUNCTION: CGA for gait Decreases SLS time on R during swing phase on L TREATMENT: Therapeutic Exercise: 1: *SciFit x5 min, seat setting 12 (subjective taken at this time) 2: STS x10 Skilled Intervention: Patient was educated in proper exercise technique and purpose for exercises. Skilled judgment was provided in selection of appropriate interventions. Correct performance of therapeutic exercises was facilitated with verbal cuing. Neuromuscular Re-Education: 1: NBOS 2x30 sec EC 2: Semitandem stance 2x30 sec EC 3: Tandem stance 2x30 sec EO 4: Step ups onto foam pad x10 5: Taps on foam pad x10 on R, 2x10 on L 6: Wobble board taps both ways x20 7: Wobble board static holds both ways x30 sec Skilled Intervention: Skilled judgment used to assess appropriate program for balance and coordination activity. Ensured patient safety with use of gait belt Gait Trainin: Walking with no AD and CGA/gait belt 1x 20 feet, 1 x40 feet, 1x60 feet, and 1x150 feet (Pt educated to NOT walk unassisted at home yet. Cuing for proper foot clearance in swing phase) Skilled Intervention: Patient was provided contact guard assistance during pre-gait/gait training to prevent falls and insure safety. Facilitated proper gait cycle with the use of verbal and visual cues for correction of gait deviations identified in the objective section above. Billing Therapeutic Exercise Treatment Minutes: 7 Neuromuscular Re-Education Treatment Minutes: 25 Gait Training Treatment Minutes: 10 Total Treatment Time Minutes (timed/untimed): 42 Darrian Nolasco PT documented in this encounter [facility] 04-19-2023 History of Presen t illness Narrative Episode Visit Count: 3 Therapist That Will Accept/Oversee The Plan Of Care: Darrian Nolasco Start of Care Date: 04/07/23 Onset Date: 02/20/23 Plan of Care Certification Date: 04/07/23 Next Certification Due Date: 06/06/23 REHABILITATION AND SPORTS THERAPY PHYSICAL THERAPY TREATMENT NOTE ASSESSMENT: Jessica Lazcano tolerated the session with fatigue and no issues. She demonstrated improvements in balance tolerance. The patient will continue to benefit from ongoing skilled physical therapy to progress toward set goals. PLAN FOR NEXT VISIT: May try EC on foam pad SUBJECTIVE: Patient Reason for Visit: Pt doing well tonight. She was surprised how she performed last session. She's not sure which one, but something in her HEP is causing her back to hurt Pain: Pain Pain Level: 0 OBJECTIVE MEASURES WITH LEVEL OF FUNCTION: CGA to Shauna throughout balance exercises TREATMENT: Therapeutic Exercise: 1: *Seated dorsiflexion 3x20 2: *Standing calf raises 3x20 3: *Supine BTB clamshells 3x10 4: *SLR 3x10/side 5: *STS 3x10 Skilled Intervention: Patient was educated in proper exercise technique and purpose for exercises. Skilled judgment was provided in selection of appropriate interventions. Provided written instruction for home exercise program to facilitate proper performance and compliance. Correct performance of therapeutic exercises was facilitated with verbal, visual, and tactile cuing. Neuromuscular Re-Education: 1: NBOS 2x30 sec EC 2: Semitandem stance 2x30 sec EC 3: Tandem stance 2x30 sec EO 4: Step ups onto foam pad x10 5: Tandem and semitandem stance on foam pad EO 2x20 sec 6: Wobble board taps both ways x20 7: Wobble board static holds both ways x30 sec Skilled Intervention: Skilled judgment used to assess appropriate program for balance and coordination activity. Ensured patient safety with use of giat belt Billing Therapeutic Exercise Treatment Minutes: 12 Neuromuscular Re-Education Treatment Minutes: 30 Total Treatment Time Minutes (timed/untimed): 42 Darrian Nolasco PT documented in this encounter [facility] 04-18-2023 History of Presen t illness Narrative Episode Visit Count: 2 Therapist That Will Accept/Oversee The Plan Of Care: Darrian Nolasco Start of Care Date: 04/07/23 Onset Date: 02/20/23 Plan of Care Certification Date: 04/07/23 Next Certification Due Date: 06/06/23 REHABILITATION AND SPORTS THERAPY PHYSICAL THERAPY RE-EVALUATION PLAN OF CARE UPDATE: Assessment: Jessica Lazcano demonstrates good tolerance to HEP and is appropriate to continue her goals from originally established plan of care. Patient continues to present with impairments in ADL's, balance, gait, overall function, strength, and symptom management that interfere with walking in the community, lifting, recreational activities . Current prognosis is Excellent due to: current objective clinical presentation . She will benefit from continued skilled therapy services to meet the updated goals for this plan of care as noted below. Goals updated on 04/14/2023. Goals for Episode of Care: created on 04/07/23 through 06/06/23 [place] in home exercise program. Continuing Patient will decrease pain rating by 2 points to meet minimal clinical important difference for numeric pain rating scale. Not met Perform ADLs with least with decreased report of fear of falling in 4 Weeks. Not met Perform ADLs without fear of falling in 8 weeks. Not met Patient will improve 5 time sit to stand to demonstrate improvement in functional lower extremity strength. Not met Increased RLE strength in all planes to at least 4/5. Not met Improve single leg and tandem stance balance to at least 20 seconds to decrease risk of falling. Not met Improve postural awareness. Normal gait. Reciprocal stair negotiation. Patient Goals: get back to walking without the walker Planned Interventions, Frequency, and Duration: 2x/week, 8 weeks Total Number of Visits Planned: 16 Patient to be seen for Therapeutic exercise (19743), Neuromuscular re-education (25891), Manual therapy (48114), Therapeutic activities (49075), Self-halfway management (84935), Patient/Family/Caregiver Education, Body Mechanics Training, Gait Training (32688) PLAN FOR NEXT VISIT: continue balance as tolerable, progress strength and endurance SUBJECTIVE: Patient Reason for Visit: Pt transferring care from [place] follow a CVA on 02/20. Wants to get back to walking without the walker, decrease her fear of falling. Functional Limitations: walking in the community, lifting, recreational activities Pain: PROMIS Scales Higher is Better 04/07/2023 Phys Func - Score 32 (moderate dysfunction) Phys Func - Percentile 4 % Self-Eff Symptom - Score 46 (Average) Self-Eff Symptom - Percentile 34 % T-scores: mean of general population = 50. 5 points is clinically meaningfully difference Percentiles provide an indication of how the patient's score ranks in relation to the general population. Higher percentile rankings indicate better function/quality of life. 50th percentile is the average of the general population and indicates half of respondents had a worse score. OBJECTIVE MEASURES WITH LEVEL OF FUNCTION: TREATMENT: Therapeutic Exercise: 1: *Seated dorsiflexion 3x20 2: supine clamshells x20 3: bridge x 15 4: SLR x 10 5: heel raises x15 Skilled Intervention: Patient was educated in proper exercise technique and purpose for exercises. Skilled judgment was provided in selection of appropriate interventions. Provided written instruction for home exercise program to facilitate proper performance and compliance. Correct performance of therapeutic exercises was facilitated with verbal, visual, and tactile cuing. Neuromuscular Re-Education: 1: NBOS 2x30 sec EC 2: Semitandem stance 2x30 sec EC 3: Tandem stance 2x30 sec EO 4: Wobble board taps front to back/side to side x20 each Skilled Intervention: Skilled judgment used to assess appropriate program for balance and coordination activity. Ensured patient safety with use of gait belt Billing Therapeutic Exercise Treatment Minutes: 15 Neuromuscular Re-Education Treatment Minutes: 25 Total Treatment Time Minutes (timed/untimed): 40 Darrian Nolasco PT documented in this encounter [facility] 04-07-2023 Note HNO ID: [id number] Author: Paloa Jacob, PT Service: ? Author Type: Physical Therapist Type: Progress Notes Filed: 04/07/2023 11:17 AM Note Text: Episode Visit Count: 1 Therapist That Will Accept/Oversee The Plan Of Care: Paola James - evaluating therapist (transferring care to [place]) Start of Care Date: 04/07/23 Onset Date: 02/20/23 Plan of Care Certification Date: 04/07/23 Next Certification Due Date: 06/06/23 Patient Identified by Name and Date of : Yes REHABILITATION AND SPORTS THERAPY PHYSICAL THERAPY EVALUATION PLAN OF CARE: Assessment: Jessica Lazcano presents with chief complaint of weakness s/p CVA that interferes with walking in the community, lifting, recreational activities . She presents with impairments in ADL's, balance, gait, overall function, posture, and strength. PROMIS? (Patient-Reported Outcomes Measurement Information System) scores were reviewed and physical function domain identified as a rehabilitation concern. Prognosis for therapy is Excellent due to: current objective clinical presentation . Pt demonstrates decreased B hip strength (R>L), gait abnormalities (see objective), increased time on 5TSTS and TUG, and balance deficits. She will benefit from skilled therapy services to meet the goals established for this plan of care as noted below. Goals for Episode of Care: created on 04/07/23 through 06/06/23 [place] in home exercise program. Patient will decrease pain rating by 2 points to meet minimal clinical important difference for numeric pain rating scale. Perform ADLs with least with decreased report of fear of falling in 4 weeks. Perform ADLs without fear of falling in 8 weeks. Patient will improve 5 time sit to stand to demonstrate improvement in functional lower extremity strength. Increased R hip strength in all planes to at least 4/5. Improve R knee strength to at least 4/5. Improve single leg and tandem stance balance to at least 20 seconds to decrease risk of falling. Improve postural awareness. Normal gait. Reciprocal stair negotiation. Patient Goals: get back to walking without the walker Planned Interventions, Frequency, and Duration: Current Frequency: 2x/week Duration: 8 weeks Total Number of Visits Planned: 16 Planned Treatment Interventions: Therapeutic exercise (04891), Neuromuscular re-education (58013), Manual therapy (83967), Therapeutic activities (90422), Self-halfway management (52984), Gait Training (02718), Patient/Family/Caregiver Education PLAN FOR NEXT VISIT: progress as able Patient demonstrates good understanding of plan of care and treatment. The above goals and plan of care were discussed and agreed upon by patient/family. Transfer of Care Due To: Closer to Home Patient transferring care to: Marya SUBJECTIVE: Jessica Lazcano is a 72 year old female seen today for CVA on 02/20/23 Patient Goals: get back to walking without the walker Functional Limitations: walking in the community, lifting, recreational activities Prior Level of Function: Independent without limitations Home Environment Patient Lives With: Self/Alone Transportation: Travels as a passenger Intake Information: Prescription present Previous Treatment: None Falls Interview: No positive findings with falls interview Aquatic Screen: No Pain: Pain Pain Level: 0 Post Treatment Pain Post Treatment Pain Level: No Change PROMIS Scales Higher is Better 04/07/2023 Phys Func - Score 32 (moderate dysfunction) Phys Func - Percentile 4 % Self-Eff Symptom - Score 46 (Average) Self-Eff Symptom - Percentile 34 % T-scores: mean of general population = 50. 5 points is clinically meaningfully difference Percentiles provide an indication of how the patient's score ranks in relation to the general population. Higher percentile rankings indicate better function/quality of life. 50th percentile is the average of the general population and indicates half of respondents had a worse score. OBJECTIVE MEASURES WITH LEVEL OF FUNCTION: Posture / Alignment Posture: Slump LE Strength R Hip Extension: 3+/5 R Hip Flexion (L2): 3+/5 R Hip ABduction: 3-/5 R Knee Extension (L3): 4-/5 R Knee Flexion: 5/5 L Hip Extension: 3+/5 L Hip Flexion (L2): 4-/5 L Hip ABduction: 3+/5 L Knee Extension (L3): 5/5 L Knee Flexion: 5/5 Mobility Rolling: Independent Supine To Sit: Independent Sit to Supine: Independent Sit To Stand: Independent Stand To Sit: Independent Bed To Chair: Contact Guard Assistance Bed To Chair Transfer Type: Stepping Gait Weight Bearing Status: FWB Gait: Modified Independent Gait Device: Wheeled Walker Gait Observation: decreased foot clearance on the R d/t decreased knee flexion and decreased DF Stairs: Modified Independent Stairs: step to on ascent, sideways with B UE support on handrail and CGA Functional Performance Test Results 5 Times Sit to Stand Test : 14. (more content not included)... [facility] 04-07-2023 Note HNO ID: [id number] Author: MILADY Schwab Service: ? Author Type: Occupational Therapist Type: Progress Notes Filed: 04/07/2023 10:20 AM Note Text: Summary: OT evaluation Episode Visit Count: 1 Therapist That Will Accept/Oversee The Plan Of Care: Jennyfer Nava Start of Care Date: 04/07/23 Onset Date: 02/22/23 Patient Identified by Name and Date of : Yes REHABILITATION AND SPORTS THERAPY OCCUPATIONAL THERAPY EVALUATION PLAN OF CARE: Assessment: Jessica Lazcano presents with diagnosis of s/p L CVA that interferes with lifting, physical activities, use hand with arm at shoulder level, driving, cleaning, cooking, gripping, pinching, twisting, pulling, pushing, carrying . She presents with impairments in coordination, overall function, sensation, and strength. PROMIS? (Patient-Reported Outcomes Measurement Information System) scores were reviewed and physical function domain identified as a rehabilitation concern. Prognosis for therapy is Good due to: current objective clinical presentation, good support system/ coping skills . She will benefit from skilled therapy services to meet the goals established for this plan of care as noted below. Goals for Episode of Care created on 04/07/23 through 07/07/23 Patient will complete HEP at [place] level. Patient will demonstrate increase in Right shoulder strength to 4/5 during manual muscle testing in order to improve function for light functional tasks. Patient will increase right refinery operator visbreaking to >30# to improve function for light functional tasks. Patient will demonstrate improved neuromuscular coordination as evidenced by improved 9-hole peg test to Less than 35 sec improve function for light functional tasks. Patient Goals: Resume normal function of R side Planned Interventions, Frequency, and Duration: Current Frequency: 1x every other week Duration: 12 weeks Total Number of Visits Planned: 6 Planned Treatment Interventions: Therapeutic exercise (26499), Therapeutic activities (45362), Manual therapy (94544), Self-halfway management (21685), Neuromuscular re-education (66121) PLAN FOR NEXT VISIT: review HEP ; adjust as needed Patient demonstrates good understanding of plan of care and treatment. The above goals and plan of care were discussed and agreed upon by patient/family. SUBJECTIVE: Jessica Lazcano is a 72 year old female seen today for OT initial evaluation; pt went to [facility] on 02/22-02/23 found to have L lateral thalamic acute to subacute infarct w/o Larger territorial ischemia. She went to inpatient rehab and was d/c'd on 03/07. She also received HHT and now presents to outpatient therapy. Functional Limitations: lifting, physical activities, use hand with arm at shoulder level, driving, cleaning, cooking, gripping, pinching, twisting, pulling, pushing, carrying Prior Level of Function: Independent without limitations Patient Goals: Resume normal function of R side Intake Information: Prescription present Previous Treatment: Neuro Rehab Relevant History Past Relevant Medical Conditions: Cerebral Vascular Accident Right or Left Handed: Right Employment: Retired Hobbies / Interests: sewing Home Environment Patient Lives With: Family Assistance Available: Part-Time Home Type: Ranch Entry To Home: With Rail Pain: Pain Pain Level: 0 Post Treatment Pain Post Treatment Pain Level: No Change PROMIS Scales Higher is Better 04/07/2023 Phys Func - Score 32 (moderate dysfunction) Phys Func - Percentile 4 % Self-Eff Symptom - Score 46 (Average) Self-Eff Symptom - Percentile 34 % T-scores: mean of general population = 50. 5 points is clinically meaningfully difference Percentiles provide an indication of how the patient's score ranks in relation to the general population. Higher percentile rankings indicate better function/quality of life. 50th percentile is the average of the general population and indicates half of respondents had a worse score. OBJECTIVE MEASURES WITH LEVEL OF FUNCTION: Vision Vision Deficits: Wears corrective lenses Hand Strength R Psychiatry Adult Physician Position 2 (lbs): 26 lbs L Psychiatry Adult Physician Position 2 (lbs): 31 lbs UE AROM R UE AROM: WFL L UE AROM: WFL UE PROM R UE PROM: WFL L UE PROM: WFL UE and Cervical Strength Strength Tested: Shoulder All R Shoulder Flexion: 3+/5 R Shoulder Abduction (C5): 3+/5 R Shoulder Internal Rotation: 4-/5 R Shoulder External Rotation: 4-/5 R Elbow Extension (C7): 4/5 R Elbow Flexion (C6): 3+/5 L Shoulder Flexion: 5/5 L Shoulder Abduction (C5): 5/5 L Shoulder Internal Rotation: 5/5 L Shoulder External Rotation: 5/5 Current Activities Of Daily Living Feeding: Independent Grooming: Independent Bathing Upper Body: Independen (more content not included)... [facility] 04-04-2023 Miscellaneous Notes Rec'd medical records from [facility] imported into [employer]. OSH imaging/records pending: April 04, 2023 Faxed over an Authorization of LEENA Form to the Medical Records Department at [facility] to obtain images and records prior to the patient's appointment. documented in this encounter [facility] 03-15-2023 Miscellaneous Notes Notified PT Bernabe. D/T lack of insurance unsure if non [facility] home care is an option. Bernabe will reach out to [facility] to clarify if they have the ability for patient to complete OT/PT at same time. Will then update family. Advised to contact PCP office if needing anything further. Beckie Saleh MA I figured that would be the case. Will place new non [facility] HHC order for PT/OT. Thank you for the referral of your patient to [facility]. Patient is out of the service area. documented in this encounter [facility] 03-13-2023 Instructions Ceci Vera MD - 03/13/2023 4:44 PM EDT F/u with labs in 4-6 weeks. Try 2.5 or 5 mg of melatonin OTC at night to help with sleep. documented in this encounter [facility] 03-13-2023 History of Presen t illness Narrative Chief Complaint Patient presents with: Hospital F/U HPI Jessica Lazcano is a 72 year old female who presents here today for new [facility] follow up. Previous patient of Dr. Heredia with last OV in 2013. Accompanied today by daughter Mary. Patient admitted to [facility] from 02/21 to / after presenting with disequilibrium and right hand weakness with markedly elevated BP. Foun to have abnormal brain MRI with left lateral thalamic acute to subactue 5mm lacunar infarct without evidence of large territorial ischemia. Neurology consulted via [facility] out of window for thrombolytic and was started on antiplatelet and then referred to SNF for 3 hours of PT/OT daily. BP improved with amlodipine, metoprolol and lisinopril. Added on pravastatin after having hives from Lipitor. Buspar added 5 mg BID for anxiety symptoms. Discharged from SNF on 03/07. Since discharge, patient has not had any recurrent stroke symptoms on her current regimen. Has noticed improvement in her reflexes and fine motor control. Able to better hold a fork when eating, can put her right hand down slowly instead of just slapping it down, able to reach across her body without assistance. Has stroke resource books and has been continuing home exercises. Using walker for ambulation without falls. Feels steady with walker. Echo obtained in the hospital, but full report not available. Impression did not note any septal defect or PFO. Given order for 30 day event monitor which cardiology will be sending out 2 weeks from discharge. Noted carotid bruits on exam despite CTA neck showing <50% stenosis and they also wanted her to have US of her carotids on discharge. Taking ASA and plavix as prescribed without bleeding or bruising. Should be on this 1 month, then transition to just ASA. Has appointment with neurology Dr. De Los Santos on 03/21. Has not scheduled appointment for [facility] cardiology since she is still waiting on 30 day monitor. Needs referral to PT/OT through [facility]. If she goes through health [employer] as scheduled it will cost >$100 per session. Past medical history, appointments, medications, allergies reviewed. Previous Medical History PAST MEDICAL HISTORY Diagnosis Date Adjustment disorder with depressed mood History of melanoma 10/15/2014 Other and unspecified hyperlipidemia Previous Surgical History PAST SURGICAL HISTORY Procedure Laterality Date STRESS ECHO Family History FAMILY HISTORY Problem Relation Age of Onset Cancer Sister cervical Heart Sister Diabetes Mother Cancer Mother lung cancer Cancer Father lung cancer Patient Allergies ALLERGIES No Known Allergies Current Medications Current Outpatient Medications on File Prior to Visit Medication Sig albuterol (PROVENTIL) 5 mg/mL nebu Inhale 0.5 mL as instructed one time only for 1 dose. 1 DOSE NOW - BACK OFFICE. PLACE 0.5 ML PER DROPPER AND 2.5 ML OF NORMAL SALINE INTO RESERVOIR. guaiFENesin (MUCINEX) 600 mg 12 hr tablet Take 2 tablets by mouth twice daily. benzonatate (TESSALON PERLE) 100 mg capsule Take 1 capsule by mouth three times daily as needed. cyanocobalamin (VITAMIN B-12) 1,000 mcg tab Take 1 tablet by mouth once daily. ubidecarenone Q-10 (CO Q-10) 10 mg cap Take by mouth twice daily. amLODIPine (NORVASC) 10 mg tablet Take 1 tablet by mouth once daily. simvastatin 20 mg tablet Take 1 tablet by mouth daily at bedtime. aspirin 325 mg tablet Take 1 tablet by mouth once daily as needed. No current facility-administered medications on file prior to visit. Social History Social History Tobacco Use Smoking status: Never Smokeless tobacco: Never Substance Use Topics Alcohol use: Yes Comment: occasional Drug use: No Review of Symptoms REVIEW OF SYSTEMS GENERAL: No weight loss, malaise or fevers RESPIRATORY: Negative for cough, hemoptysis, wheezing, COPD, dyspnea or shortness of breath CARDIOVASCULAR: Negative for chest pain, leg swelling, hypertension, CHF or palpitations GI: No nausea, vomiting, or diarrhea SKIN: Negative for lesions, rash, and itching EXAM: BP 126/78 Pulse 67 Resp 16 SpO2 97% General Appearance: Well appearing, alert, AOx3, in no acute distress, well-hydrated, well nourished. Skin: Skin color, texture, turgor normal, no suspicious rashes or lesions. Lungs: Lungs clear to auscultation. No wheezing, rhonchi, rales.. Heart: Negative findings: regular rate and rhythm, Positive findings: 2/6 TAWANNA heard best at RUSB. Abdomen: Normal abdominal exam, Abdomen soft, non-tender. Bowel sounds normal. No masses, organomegaly. Extremities: No deformities, edema, skin discoloration, clubbing or cyanosis. Good capillary refill. Neurologic: Negative findings: speech normal, mental status intact, cranial nerves 2-12 intact, sensation to light touch and pinprick normal, reflexes normal and symmetric, Positive findings: 4/5 strength in right upper and lower extremities compared to 5/5 on left. Health Maintenance List COVID-19 VACCINE(1) Never done ANNUAL PCP TEAM CHRONIC DISEASE VISIT Never done HEPATITIS C SCREENING Never done BP CONTROLLED (<130/80) Never done SHINGRIX VACCINE(1 of 2) Never done MAMMOGRAM due on 04/11/2014 COLORECTAL CANCER SCREENING due on 04/11/2014 DIABETES SCREEN due on 12/11/2015 DTAP,TDAP,TD(2 - Td or Tdap) due on 08/01/2017 BONE DENSITY Never done PNEUMOCOCCAL: 65+(1 - PCV) Never done LIPID SCREEN due on 03/11/2018 ADVANCE DIRECTIVE DISCUSSION Never done INFLUENZA(Season Ended) due on 07/21/2023 ASSESSMENT/PLAN: 1. Cerebrovascular accident (CVA), unspecified mechanism (HCC) - ICD9: 434.91, ICD10: I63.9 (primary diagnosis) Workup for cause of stroke negative thus far. Will f/u results of 30 day monitor and check carotid US as recommended. Keep f/u with neurology as scheduled. Continue secondary stroke prophylaxis. BP well controlled today. Refills sent as requested. Red flags for re-assessment reviewed with patient in detail. - US CAROTID ARTERIES [facility] - CONSULT TO PHYSICAL THERAPY - CONSULT TO PRODUCTION MAINTENANCE MECHANIC - COMP METABOLIC PANEL - LIPID PANEL, NONFASTING - CONSULT TO NEUROLOGY 2. Right sided weakness - ICD9: 728.87, ICD10: R53.1 Improving after discharge. Refer to PT/OT. Continue home exercises. - CONSULT TO PHYSICAL THERAPY - CONSULT TO PRODUCTION MAINTENANCE MECHANIC - CONSULT TO NEUROLOGY 3. Bilateral carotid bruits - ICD9: 785.9, ICD10: R09.89 Normal exam today. Will obtain US as recommended on discharge. - US CAROTID ARTERIES [facility] 4. Anxiety - ICD9: 300.00, ICD10: F41.9 Improved on current regimen. 5. Hypertension, essential - ICD9: 401.9, ICD10: I10 - good control - Continue current medication(s) - Encouraged dietary sodium restriction/DASH diet - Recommended regular aerobic exercise. - Reviewed risks of HTN and principles of treatment - Goal of BP <140/90 Ceci Vera MD documented in this encounter [facility] 02-22-2023 Discharge summary Note Date/Time February 22, 2023 12:17pm [facility] Medical Records Department [address] [place] [address] Discharge Summary 02/22/23 1214 MR#: [id number] Acct: [id number] Name: JESSICA LAZCANO Rep #:[id number] : 1950 72 From: Pantera Almodovar MD PCP: Care Physician,No Primary Status :ADM IN Location: [place] [address] Providers Date of Admission: 02/22/23 Date of Discharge: 02/22/23 Primary Care Physician: No Primary Care Phys Reason For Visit: SUSPECTED CVA Diagnosis Discharge Diagnosis (1) Hypertension: Status: Chronic Code(s): I10 - Essential (primary) hypertension (2) Disequilibrium: Status: Acute Code(s): R42 - Dizziness and giddiness Plan Patient is a 72-year-old lady presenting with disequilibrium, subjective right-sided weakness and markedly elevated blood pressure 1. 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 Patient presented with disequilibrium as well as right-sided weakness. Initial head CT obtained was negative for acute bleed. CTA did the most Mild calcific plaque formation at the origins of both the right and left internal carotid artery causing less than 50% narrowing. Patient has been admitted to monitored bed subsequently. Placed on every 4 neurochecks as part of her management ordered a 2D echo and MRI to rule out acute CVA. Patient was started on antiplatelet therapy as well as statin therapy pending results of herMRI -02/22/2023; Patient's MRI demonstrated left lateral thalamic acute to subacute 5 mm likely lacunar infarct with no evidence of large territorial ischemia.. Consult subsequently placed to [facility] teleneurology. ?Patient was transferred to the inpatient rehab unit to continue with her therapy 2. Hypertension ? Patient does not have any history of hypertension her systolic blood pressure was markedly elevated greater than 200. Given the suspicion for possible CVA aggressive treatment was not initiated MRI results. If acute CVA is ruled out treatment of her blood pressure will be pursued aggressively ? 02/22/2023 some improvement in patient blood pressure levels 3. Class I obesity with BMI of 34.0 ? Weight loss advised 4.dyslipidemia ? Patient total cholesterol was 216 LDL 150. Patient has been started on high-dose statin therapy 5. Hyperglycemia ? Ordered hemoglobin A1c to rule out diabetes 6. DVT prophylaxis - On enoxaparin Time spent in the patient's overall evaluation,decision-making process, review of diagnostic data, adjustment of management, discussion with other providers, nursing nursing and ancillary staff involved in patient's care documentation, 57Minutes Medications at Discharge Home Medications acetaminophen 325 mg tablet 650 mg PO Q6H PRN PRN Pain 1-10 Or Fever>100.7 #0 tabs 02/22/23 aluminum-mag hydroxide-simethicone 400 mg-400 mg-40 mg/5 mL oral susp (Mag-Al Plus Extra Strength) 30 ml PO Q6H PRN PRN Gastric Burning #0 mL 02/22/23 amlodipine 10 mg tablet 10 mg PO DAILY #1 TAB 02/22/23 aspirin 81 mg tablet,delayed release 81 mg PO BREAKFAST #0 tabs 02/22/23 atorvastatin 80 mg tablet 80 mg PO QHS #0 tabs 02/22/23 clopidogrel 75 mg tablet (Plavix) 75 mg PO DAILY #20 tabs 02/22/23 melatonin 3 mg tablet 3 mg PO QHS PRN PRN Insomnia #0 tabs 02/22/23 sennosides 8.6 mg-docusate sodium 50 mg tablet (Stool Softener-Stimulant Laxative) 2 tab PO BID PRN PRN Constipation #0 tabs 02/22/23 Hospital Course Summary of Care Provided Minutes Spent on Discharge: 57 Physical Exam Narrative GENERAL: cooperative HEENT: Atraumatic; normocephalic EYES; Anicteric, Normal Conjunctiva NECK; supple, normal thyroid, RESPIRATORY: Diminished to auscultation CARDIOVASCULAR: Regular S1 S2, GI: soft, normoactive bowel sounds, : No Renal angle tenderness; EXTREMITIES: No edema, no clubbing, MUSCULOSKELETAL: no muscle wasting NEURO: Awake; strength 4/5 in the right upper extremity SKIN: No Rash PSYCH; Flat affect Weight / BMI Weight Weight: 93.3 kg Body Mass Index (BMI) 40.1 ABG / Lab / Microbiology Data Result Diagrams: 02/22/23 03:56 02/22/23 03:56 Laboratory: Laboratory Results - last 24 hr 02/22/23 03:56: WBC 10.3, RBC 4.54, Hgb 13.0, Hct 39.4, MCV 86.8, MCH 28.6, MCHC33.0, RDW Std Deviation 40.8, RDW Coeff of Stacy 13.0, Plt Count 314, MPV 11.2, Immature Gran % (Auto) 0.400, Neut % (Auto) 75.5 H, Lymph % (Auto) 16.9 L, [place] % (Auto) 6.9, Eos % (Auto) 0.2, Baso % (Auto) 0.1, Absolute Neuts (auto) 7.8 H, Absolute Lymphs (auto) 1.74, Nucleated RBC % 0 02/22/23 03:56: Sodium 138, Potassium 4.0, Chloride 108 H, Carbon Dioxide 23.0, Anion Gap 7, BUN 17, Creatinine 0.86, Estim Creat Clear Calc 43.72, Est GFR (MDRD) Af Amer 84, Est GFR (MDRD) Non-Af 69, BUN/Creatinine Ratio 19.8, Glucose 118 H, Calcium 8.9, Phosphorus 3.5, Magnesium 2.3, Triglycerides 109, Cholesterol 216 H, LDL Cholesterol 150 H, VLDL Cholesterol 22, HDL Cholesterol 44 Radiography Diagnostic Testing: Radiology Impression Brain MRI 02/21/23 10:30 IMPRESSION: Left lateral thalamic acute to subacute 5 mm likely lacunar infarct with no evidence of large territorial ischemia. No evidence of acute intracranial bleed or mass. Electronically Signed: Cal Anguiano at 16:47 EDT , Echocardiogram 02/21/23 12:31 Interpretation Summary The estimated ejection fraction is 70 %. Normal diastology for age. Ordering Physician: Pantera Almodovar Referring Physician: No PCP Performed By: Alvarez Roche RCS D/C Instructions Discharge Diet: No restrictions Discharge Activity: Return to Normal Activity Call your doctor if you observe: Fever of 101 or Higher, Shortness of breath, Fainting spells and Chest pain Meaningful Use Info Meaningful Use Diagnoses (Choose all that apply): Ischemic CVA CVA Therapy Assessed for PT,OT and/or ST?: Yes Ischemic Stroke Antithrombotic order at d/c?: Yes Dx of Atrial fib/flutter?: No Statins at discharge?: Yes Primary Dx Acute Ischemic CVA?: Yes IV thrombolytic ordered during stay?: No Reason IV thrombolytic not ordered: Treatment not Indicated Discharge Plan Admission Admit Date/Time: 02/22/23 10:04 Attending Provider: Pantera Almodovar Primary Care Provider: Care Physician,No Primary Discharge Orders/Prescriptions Prescriptions: New atorvastatin 80 mg Tablet 80 mg PO QHS Qty: 0 0RF acetaminophen 325 mg Tablet 650 mg PO Q6H PRN PRN (Reason: Pain 1-10 Or Fever>100.7) Qty: 0 0RF sennosides-docusate sodium [Stool Softener-Stimulant Laxat] 8.6-50 mg Tablet 2 tab PO BID PRN PRN (Reason: Constipation) Qty: 0 0RF melatonin 3 mg Tablet 3 mg PO QHS PRN PRN (Reason: Insomnia) Qty: 0 0RF aspirin 81 mg Tablet,Delayed Release (Dr/Ec) 81 mg PO BREAKFAST Qty: 0 0RF alum-mag hydroxide-simeth [Mag-Al Plus Extra Strength] 400-400-40 mg/5 mL Suspension 30 ml PO Q6H PRN PRN (Reason: Gastric Burning) Qty: 0 0RF amlodipine 10 mg tablet 10 mg PO DAILY Qty: 1 0RF clopidogrel [Plavix] 75 mg tablet 75 mg PO DAILY Qty: 20 0RF Referrals / Follow Up: Care Physician,No Primary [Primary Care Provider] - Disposition Disposition (needs filled in before D/C Order can be placed): Inpatient Rehab Unit/Facility Charges/Coding Visit Charges Inpatient E&M: 02873 Disch Hosp >30min 02/22/23 1217 <Electronically signed by Pantera Almodovar MD> Cosigner Signature (if applicable): CC: Dr. Pantera Almodovar MD; No Primary Care Physician~ Signed [facility] Work Phone: [phone]) 871-379404-05-2023 Hospital Discharge instructions Additional Instructions Date of Discharge: 02/22/23[facility] Work Phone: [phone]) 294-676404-05-[address] Almodovar [facility] February 22, 2023 10:23am Note Date/Time February 22, 2023 7:32 am [facility] Medical Records Department [address] [place] [id number] Progress Note - Hospitalist 02/22/23 0732 MR#: [id number] Acct: [id number] Name: JESSICA LAZCANO Rep #:[id number] : 1950 72 From: Pantera Almodovar MD PCP: Care Physician,No Primary Status :ADM IN Location: [place] [address] Reason for Visit Reason for Visit: Diagnoses Essential (primary) hypertension (02/21/23) Dizziness and giddiness (02/21/23) Subjective Subjective Patient's MRI demonstrated left lateral thalamic acute to subacute 5 mm likely lacunar infarct with no evidence of large territorial ischemia.. Consult subsequently placed to [facility] teleneurology. 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 Objective Data Objective Data Vital Signs: Vital Signs Temp Pulse Resp BP Pulse Ox O2 Del Method 98.4 F 75 16 140/103 H 96 Room Air 02/22/23 04:30 02/22/23 04:30 02/22/23 04:30 02/22/23 04:30 02/22/23 04:30 02/22/23 04:56 Oxygen Delivery Method Room Air Weight: 93.3 kg Body Mass Index (BMI) 40.1 Intake & Output: Intake and Output for Last 24 Hours 02/20/23 02/21/23 02/22/23 23:59 23:59 23:59 Intake Total 587.5 / 587.5 856.25 / 856.25 Output Total 1200 / 1200 250 / 250 Balance -612.5 / -612.5 606.25 / 606.25 Lab / Micro Data Result Diagrams: 02/22/23 03:56 02/22/23 03:56 Labs: Laboratory Results - last 24 hr 02/21/23 09:10: WBC 7.7, RBC 5.05, Hgb 14.1, Hct 42.1, MCV 83.4, MCH 27.9, MCHC 33.5, RDW Std Deviation 38.7, RDW Coeff of Stacy 12.8, Plt Count 330, MPV 10.4, Immature Gran % (Auto) 0.400, Neut % (Auto) 66.4, Lymph % (Auto) 23.3, [place] % (Auto) 9.6, Eos % (Auto) 0.0, Baso % (Auto) 0.3, Absolute Neuts (auto) 5.1, Absolute Lymphs (auto) 1.79, Nucleated RBC % 0 02/21/23 09:10: PT 13.0, INR 1.0, APTT 34.9 02/21/23 09:10: Sodium 138, Potassium 3.8, Chloride 105, Carbon Dioxide 27.0, Anion Gap 6, BUN 15, Creatinine 0.87, Estim Creat Clear Calc 43.22, Est GFR (MDRD) Af Amer 83, Est GFR (MDRD) Non-Af 69, BUN/Creatinine Ratio 17.3, Glucose 123 H, Calcium 9.6, Troponin I High Sens 7 02/21/23 09:18: POC Glucose 109 H 04/05/23 03:56: WBC 10.3, RBC 4.54, Hgb 13.0, Hct 39.4, MCV 86.8, MCH 28.6, MCHC33.0, RDW Std Deviation 40.8, RDW Coeff of Stacy 13.0, Plt Count 314, MPV 11.2, Immature Gran % (Auto) 0.400, Neut % (Auto) 75.5 H, Lymph % (Auto) 16.9 L, [place] % (Auto) 6.9, Eos % (Auto) 0.2, Baso % (Auto) 0.1, Absolute Neuts (auto) 7.8 H, Absolute Lymphs (auto) 1.74, Nucleated RBC % 0 02/22/23 03:56: Sodium 138, Potassium 4.0, Chloride 108 H, Carbon Dioxide 23.0, Anion Gap 7, BUN 17, Creatinine 0.86, Estim Creat Clear Calc 43.72, Est GFR (MDRD) Af Amer 84, Est GFR (MDRD) Non-Af 69, BUN/Creatinine Ratio 19.8, Glucose 118 H, Calcium 8.9, Phosphorus 3.5, Magnesium 2.3, Triglycerides 109, Cholesterol 216 H, LDL Cholesterol 150 H, VLDL Cholesterol 22, HDL Cholesterol 44 Radiography Diagnostic Testing: Radiology Impression Brain CT 02/21/23 09:02 IMPRESSION: Chronic involutional changes of the brain. Electronically Signed: Alvin Llanos MD at 9:18 EDT , ADDENDUM: 02/21/23 1000 IMPRESSION: Chronic involutional changes of the brain. N.B. : The above Results were Read Back by Alvin Llanos MD to Yue Mendoza MD, and understanding confirmed on 02/21/2023 09:53:39 (ET). Electronically Signed: Alvin Llanos MD at 9:18 EDT , Head/Neck CTA 02/21/23 09:02 IMPRESSION: Mild calcific plaque formation at the origins of both the right and left internal carotid artery causing less than 50% narrowing. N.B. : The above Results were Read Back by Alvin Llanos MD to Dr Jaqueline MD, and understanding confirmed on 02/21/2023 09:45:54 (ET). Electronically Signed: Alvin Llanos MD at 9:47 EDT , ADDENDUM: 02/21/23 0954 IMPRESSION: Mild calcific plaque formation at the origins of both the right and left internal carotid artery causing less than 50% narrowing. N.B. : The above Results were Read Back by Alvin Llanos MD to Dr Jaqueline MD, and understanding confirmed on 02/21/2023 09:45:54 (ET). Electronically Signed: Alvin Llanos MD at 9:47 EDT , Brain MRI 02/21/23 10:30 IMPRESSION: Left lateral thalamic acute to subacute 5 mm likely lacunar infarct with no evidence of large territorial ischemia. No evidence of acute intracranial bleed or mass. Electronically Signed: Cal Anguiano DO at 16:47 EDT , Chest X-Ray 02/21/23 11:35 IMPRESSION: No acute abnormality is seen. Electronically Signed: Alvin Llanos MD at 12:00 EDT , Echocardiogram 02/21/23 12:31 Interpretation Summary The estimated ejection fraction is 70 %. Normal diastology for age. Ordering Physician: Pantera Almodovar Referring Physician: Terra PCP Performed By: Alvarez Roche RCS Physical Exam Narrative GENERAL: cooperative HEENT: Atraumatic; normocephalic EYES; Anicteric, Normal Conjunctiva NECK; supple, normal thyroid, RESPIRATORY: Diminished to auscultation CARDIOVASCULAR: Regular S1 S2, GI: soft, normoactive bowel sounds, : No Renal angle tenderness; EXTREMITIES: No edema, no clubbing, MUSCULOSKELETAL: no muscle wasting NEURO: Awake; strength 4/5 in the right upper extremity SKIN: No Rash PSYCH; Flat affect Assessment & Plan Assessment/Plan (1) Hypertension: (2) Disequilibrium: PLAN: Plan Patient is a 72-year-old lady presenting with disequilibrium, subjective right- sided weakness and markedly elevated blood pressure 1. 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 Patient presented with disequilibrium as well as right-sided weakness. Initial head CT obtained was negative for acute bleed. CTA did the most Mild calcific plaque formation at the origins of both the right and left internal carotid artery causing less than 50% narrowing. Patient has been admitted to monitored bed subsequently. Placed on every 4 neurochecks as part of her management ordered a 2D echo and MRI to rule out acute CVA. Patient was started on antiplatelet therapy as well as statin therapy pending results of herMRI -02/22/2023; Patient's MRI demonstrated left lateral thalamic acute to subacute 5 mm likely lacunar infarct with no evidence of large territorial ischemia.. Consult subsequently placed to SOC teleneurology. 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 Awaiting PT/OT/speech therapy eval 2. Hypertension ? Patient does not have any history of hypertension her systolic blood pressure was markedly elevated greater than 200. Given the suspicion for possible CVA aggressive treatment was not initiated MRI results. If acute CVA is ruled out treatment of her blood pressure will be pursued aggressively ? 02/22/2023 some improvement in patient blood pressure levels 3. Class I obesity with BMI of 34.0 ? Weight loss advised 4.dyslipidemia ? Patient total cholesterol was 216 LDL 150. Patient has been started on high- dose statin therapy 5. Hyperglycemia ? Ordered hemoglobin A1c to rule out diabetes 6. DVT prophylaxis - On enoxaparin Time spent in the patient's overall evaluation,decision-making process, review of diagnostic data, adjustment of management, discussion with other providers, nursing nursing and ancillary staff involved in patient's care documentation, 57Minutes Charges/Coding Visit Charges Inpatient E&M: 37952 Subs Hosp 02/22/23 1023 <Electronically signed by Pantera Almodovar MD> Cosigner Signature (if applicable): CC: ~ Signed [facility] Work Phone: 1(197) 773-265404-05-[address] Almodovar [facility] February 22, 2023 9:32am Note Date/Time February 22, 2023 1:24 pm [facility] Medical Records Department [address] [place] [address] Telemedicine Confirmation Receipt 02/22/23 MR#: [id number] Acct: [id number] Name: JESSICA LAZCANO Rep #:[id number] : 1950 72 From: Pantera Almodovar MD PCP: Care Physician,No Primary Status :ADM IN [facility] Tele[facility] has confirmed receipt of a request for visit. This document confirms receipt of the order initiating the consult. To find the results of the consultation, please view the patient's reports for the scanned Telemed Consult. [facility] Work Phone: 1(926) 568-309804-04-[address] Mendoza [facility] February 21, 2023 4:36pm Note Date/Time February 21, 2023 9:07 am [facility] Medical Records Department [address] [place] [address] Emergency Department Summary 02/21/23 MR#: [id number] Acct: [id number] Name: JESSICA LAZCANO Rep #:[id number] : 1950 72 From: Yue Mendoza DO PCP: Care Physician,No Primary Status :ADM SCOTT Location: [address] History of Present Illness Chief Complaint: Neuro S/Sx Detail of Chief Complaint: Right-sided weakness and feeling off balance Informant: patient Narrative Narrative: Patient presents via EMS from home with concern for right-sided weakness and feeling off balance. Patient states that she woke up around 730 via an alarm and noted that she felt very off balance. Patient felt like her right hand and her right foot were not working right. She attempted multiple times to call [facility] but could not get her right hand to work properly. Daughter came over and then called EMS. Patient apparently had negative stroke exam per EMS therefore stroke team was not called prior to arrival in the emergency department. Patient continues to feel like her right hand and right foot are weak. She denies headache. She denies falls or head injuries. She tells me she has no medical history. Patient denies visual changes. Patient denies difficulty with speech. Prior similar symptoms: No PFSH PFSH Allergy/AdvReac Type Severity Reaction Status Date / Time wheat Allergy Hives Verified 02/21/23 08:55 Surgical History (Updated 02/21/23 @ 08:55 by Lexie Landry) Hx of cardiac cath Social History Smoking Status: Former smoker ROS ROS ED Review of Systems ROS Unobtainable: other Constitutional Constitutional ED: Reports lethargy; Denies chills, fever(s), sweats or weight loss Eyes Eyes: Denies blurry vision, change in vision or diplopia ENT ENT ED: Denies rhinorrhea or sore throat Cardiovascular Cardiovascular: Denies chest pain, orthopnea or racing heartbeat Respiratory/Chest Respiratory/Chest: Denies cough, dyspnea, dyspnea on exertion, orthopnea or sputum Gastrointestinal Gastrointestinal: Denies abdominal pain, diarrhea, nausea or vomiting Genitourinary Genitourinary ED: Denies dysuria, hematuria or urinary frequency Musculoskeletal Musculoskeletal: Denies arthralgias, back pain, myalgias or neck pain Integumentary Denies abscess, Abrasions or rash Neurologic Neurologic: Reports other Details: Right hand and right leg weakness, feeling off balance ; Denies headache(s) or weakness Psychiatric Psychiatric: Denies anxiety, depression or suicidal thoughts Endocrine Endocrinology: Denies polydipsia, polyphagia or polyuria Hematologic/Lymphatic Hematologic/Lymphatic: Denies easy bleeding, easy bruising or lymphadenopathy Allergic/Immunologic Allergic/Immunologic ED: Denies mouth swelling, tongue swelling or urticaria EXAM Physical Exam Const Vital Signs: 02/21/23 08:49 02/21/23 08:49 02/21/23 09:04 Temperature 97.9 F Temperature Source Temporal Pulse Rate 96 99 96 Respiratory Rate 20 H 16 18 Blood Pressure 220/107 H 220/107 H 230/116 H Blood Pressure Mean 144 144 154 Pulse Ox 97 99 97 Oxygen Delivery Method Room Air Room Air Room Air 02/21/23 09:02 02/21/23 09:02 02/21/23 09:32 Temperature Temperature Source Pulse Rate 76 71 Respiratory Rate 18 12 Blood Pressure 230/117 H 219/102 H Blood Pressure Mean 154 141 Pulse Ox 94 95 95 Oxygen Delivery Method Room Air Room Air Room Air Positive well nourished and well developed General Appearance ED: well developed and NAD HEENT Reports TM's clear and moist mucous membranes normocephalic and atraumatic; Negative for trauma or tenderness Tympanic Membrane ED: Yes TM's clear Eyes PERRL and EOMs intact bilaterally General Eye ED: Negative for pale conjunctiva or scleral icterus Neck no lymphadenopathy, supple and no JVD General: Negative for tenderness Chest Wall inspection of chest normal and palpation of chest normal Chest: Negative for tenderness Resp normal respiratory effort and clear to auscultation bilaterally Effort and Inspection: Negative for respiratory distress or pain with movement Auscultation: Negative for rhonchi, wheezes or diminished lung sounds Cardio regular rate, regular rhythm, S1 normal heart sound, S2 normal heart sound and no murmurs Peripheral Pulses: pulses 2+ throughout GI normal to inspection, nondistended, normoactive bowel sounds, soft to palpation,non-tender, non-distended and no masses Back/Spine no CVA tenderness and no thoracic nor lumbar tenderness Extremity normal to inspection General Extremety ED: Negative for edema General Extremity: Negative for edema Neuro oriented x3, CN's II-XII intact bilaterally, no sensory deficits noted and gait normal Neuro Narrative: No facial droop and no dysarthria. NIH stroke scale was a 3 given for some subtle drift with the right arm as well as some subtle drift with the right leg and mild ataxia with the right hand. Sensorium / Orientation: awake, alert, oriented to person, oriented to place andoriented to time Motor Exam: strength 5/5 throughout and strength abnormal Psych mental status grossly normal Skin no rashes or lesions noted and no wounds MDM MDM MDM Narrative Medical decision making narrative: Patient presents with concern for right-sided weakness and feeling off balance. She presented hypertensive. Subtle signs of right arm and right leg weakness and ataxia. Patient woke up with symptoms therefore onset of symptoms unclear. Stroke team was called after I examined the patient. Patient was evaluated by stroke neurologist and felt she was likely having a stroke. Patient was hypertensive therefore she was started on labetalol. CT scan of the brain without contrast was unremarkable. CTA of the head and neck showed mild stenosis of both carotid arteries of less than 50% otherwise no large vessel occlusions noted. CBC with differential was normal. Chemistries normal. EKG showed a sinus rhythm with a rate of 71 bpm with no acute ST segment changes. Troponin normal. Case will be discussed with hospitalist to evaluate patient for admission for diagnosis of CVA. Patient again not a thrombolytic candidate. Lab Data Attestation: I reviewed the patient's lab results. Labs: Laboratory Results - last 24 hr 02/21/23 02/21/23 02/21/23 09:10 09:10 09:10 WBC 7.7 RBC 5.05 Hgb 14.1 Hct 42.1 MCV 83.4 MCH 27.9 MCHC 33.5 RDW Std Deviation 38.7 RDW Coeff of Stcay 12.8 Plt Count 330 MPV 10.4 Immature Gran % (Auto) 0.400 Neut % (Auto) 66.4 Lymph % (Auto) 23.3 [place] % (Auto) 9.6 Eos % (Auto) 0.0 Baso % (Auto) 0.3 Absolute Neuts (auto) 5.1 Absolute Lymphs (auto) 1.79 Nucleated RBC % 0 PT 13.0 INR 1.0 APTT 34.9 Sodium 138 Potassium 3.8 Chloride 105 Carbon Dioxide 27.0 Anion Gap 6 BUN 15 Creatinine 0.87 Estim Creat Clear Calc 43.22 Est GFR (MDRD) Af Amer 83 Est GFR (MDRD) Non-Af 69 BUN/Creatinine Ratio 17.3 Glucose 123 H Calcium 9.6 Troponin I High Sens 7 POC Glucose 02/21/23 09:18 WBC RBC Hgb Hct MCV MCH MCHC RDW Std Deviation RDW Coeff of Stacy Plt Count MPV Immature Gran % (Auto) Neut % (Auto) Lymph % (Auto) [place] % (Auto) Eos % (Auto) Baso % (Auto) Absolute Neuts (auto) Absolute Lymphs (auto) Nucleated RBC % PT INR APTT Sodium Potassium Chloride Carbon Dioxide Anion Gap BUN Creatinine Estim Creat Clear Calc Est GFR (MDRD) Af Amer Est GFR (MDRD) Non-Af BUN/Creatinine Ratio Glucose Calcium Troponin I High Sens POC Glucose 109 H Radiography Diagnostic Testing: Clinical Impression(s) from Imaging Studies Brain CT 02/21/23 09:02 IMPRESSION: Chronic involutional changes of the brain. Electronically Signed: Alvin Llanos MD at 9:18 EDT , Head/Neck CTA 02/21/23 09:02 IMPRESSION: Mild calcific plaque formation at the origins of both the right and left internal carotid artery causing less than 50% narrowing. N.B. : The above Results were Read Back by Alvin Llanso MD to Dr Jaqueline MD, and understanding confirmed on 02/21/2023 09:45:54 (ET). Electronically Signed: Alvin Llanos MD at 9:47 EDT , ADDENDUM: 02/21/23 0954 IMPRESSION: Mild calcific plaque formation at the origins of both the right and left internal carotid artery causing less than 50% narrowing. N.B. : The above Results were Read Back by Alvin Llanos MD to Dr Jaqueline MD, and understanding confirmed on 02/21/2023 09:45:54 (ET). Electronically Signed: Alvin Llanos MD at 9:47 EDT , EKG Initial EKG: Attestation: I personally reviewed and interpreted this EKG as follows: Comments: Sinus rhythm with a rate of 71 bpm with no acute ST segment changes Discharge Plan Triage Chief Complaint: Neuro S/Sx ED Provider: Yue Mendoza Dx/Rx/DC Orders Clinical Impression: Acute CVA (cerebrovascular accident), Hypertension, Acute right-sided weakness Primary Care Provider: Care Physician,No Primary Referrals: Care Physician,No Primary [Primary Care Provider] - Disposition Disposition: [facility] What to do if you have Problems For any increased pain, shortness of breath, bleeding, nausea or vomiting, chestpain, or any unexpected problems, contact your Primary Care Provider. Call [facility] ([phone]) or report to the closest Emergency Room. Call 911 if necessary. 02/21/23 1636 <Electronically signed by Yue Mendoza DO> Cosigner Signature (if applicable): CC: No Primary Care Physician ~ Signed [facility] Work Phone: 1(839) 113-892504-04-2023 History and physical note Author Dr. Almodovar [facility] February 21, 2023 12:40pm Note Date/Time February 21, 2023 10:3 8am [facility] Medical Records Department [address] [place] [id number] H&P Exam - Hospitalist 02/21/23 1038 MR#: [id number] Acct: [id number] Name: JESSICA LAZCANO Rep #:[id number] : 1950 72 From: Pantera Almodovar MD PCP: Care Physician,No Primary Status :ADM SCOTT Location: [place] [address] HPI - General General Date of Admission: 02/21/23 Date of Service: 02/21/23 Chief Complaint: Disequilibrium HPI Narrative JESSICA LAZCANO, is a 72 F in relatively good health with no chronic medical comorbidities who presented to the emergency department with disequilibrium. The patient she was in her usual state of health prior to going to bed. She however woke up on the morning of her presentation with a sense of loss of balance. She also did notice significant weakness in the right upper extremities as well as right lower extremities. He had problems trying to text on her phone. Daughter did call the squad and patient was brought to the emergency department. Initial evaluation including stat head CT was negative for acute bleed. Patient was however found to have markedly elevated blood pressure with systolic greater than 200 (has no history of hypertension). She was subsequently admitted to a monitored bed for further management PFSH Allergy/AdvReac Type Severity Reaction Status Date / Time wheat Allergy Hives Verified 02/21/23 08:55 Family History (Updated 02/21/23 @ 12:[address] Pnatera Almodovar MD) Brother Heart disease Surgical History (Updated 02/21/23 @ 08:55 by Lexie Landry) Hx of cardiac cath Social History Smoking Status: Former smoker ROS ROS Narrative GENERAL: denies fever, chills, night sweats, weight loss, anorexia HEENT: denies headache, sinus congestion, or drainage, dysphagia RESPIRATORY: denies cough, sputum production, shortness of breath, dyspnea on exertion CARDIAC: denies chest pain, palpitations, orthopnea, PND GASTROINTESTINAL: denies abdominal pain, nausea, vomiting, melena, GENITOURINARY: denies dysuria, urgency, frequency, heamaturia EXTREMITY: denies swelling MUSCULOSKELETAL: denies current joint pain or tenderness NEUROLOGIC: Disequilibrium and focal right-sided weakness HEMATOLOGIC: denies easy bruising and/or hemorrhage INTEGUMENT: denies rashes PSYCHIATRIC: denies suicidal or homicidal ideation Vital Signs Vital Signs Vital Signs: 02/21/23 08:49 02/21/23 08:49 02/21/23 09:04 Temperature 97.9 F Temperature Source Temporal Pulse Rate 96 99 96 Respiratory Rate 20 H 16 18 Blood Pressure 220/107 H 220/107 H 230/116 H Blood Pressure Mean 144 144 154 Pulse Ox 97 99 97 Oxygen Delivery Method Room Air Room Air Room Air 02/21/23 09:02 02/21/23 09:02 02/21/23 09:32 Temperature Temperature Source Pulse Rate 76 71 Respiratory Rate 18 12 Blood Pressure 230/117 H 219/102 H Blood Pressure Mean 154 141 Pulse Ox 94 95 95 Oxygen Delivery Method Room Air Room Air Room Air 02/21/23 10:25 Temperature 97.9 F Temperature Source Temporal Pulse Rate 74 Respiratory Rate 16 Blood Pressure 215/86 H Blood Pressure Mean 129 Pulse Ox 95 Oxygen Delivery Method Room Air Weight Weight: 78.9 kg Body Mass Index (BMI) 34.0 Physical Exam Narrative GENERAL: cooperative HEENT: Atraumatic; normocephalic EYES; Anicteric, Normal Conjunctiva NECK; supple, normal thyroid, RESPIRATORY: Diminished to auscultation CARDIOVASCULAR: Regular S1 S2, GI: soft, normoactive bowel sounds, : No Renal angle tenderness; EXTREMITIES: No edema, no clubbing, MUSCULOSKELETAL: no muscle wasting NEURO: Awake; no lateralizing signs. SKIN: No Rash PSYCH; Flat affect Results Lab / Micro Data Result Diagrams: 02/21/23 09:10 02/21/23 09:10 Labs: Laboratory Results - last 24 hr 02/21/23 09:10: WBC 7.7, RBC 5.05, Hgb 14.1, Hct 42.1, MCV 83.4, MCH 27.9, MCHC 33.5, RDW Std Deviation 38.7, RDW Coeff of Stacy 12.8, Plt Count 330, MPV 10.4, Immature Gran % (Auto) 0.400, Neut % (Auto) 66.4, Lymph % (Auto) 23.3, [place] % (Auto) 9.6, Eos % (Auto) 0.0, Baso % (Auto) 0.3, Absolute Neuts (auto) 5.1, Absolute Lymphs (auto) 1.79, Nucleated RBC % 0 02/21/23 09:10: PT 13.0, INR 1.0, APTT 34.9 02/21/23 09:10: Sodium 138, Potassium 3.8, Chloride 105, Carbon Dioxide 27.0, Anion Gap 6, BUN 15, Creatinine 0.87, Estim Creat Clear Calc 43.22, Est GFR (MDRD) Af Amer 83, Est GFR (MDRD) Non-Af 69, BUN/Creatinine Ratio 17.3, Glucose 123 H, Calcium 9.6, Troponin I High Sens 7 02/21/23 09:18: POC Glucose 109 H Radiology Impression Brain CT 02/21/23 09:02 IMPRESSION: Chronic involutional changes of the brain. Electronically Signed: Alvin Llanos MD at 9:18 EDT , ADDENDUM: 02/21/23 1000 IMPRESSION: Chronic involutional changes of the brain. N.B. : The above Results were Read Back by Alvin Llanos MD to Yue Mendoza MD, and understanding confirmed on 02/21/2023 09:53:39 (ET). Electronically Signed: Alvin Llanos MD at 9:18 EDT , Head/Neck CTA 02/21/23 09:02 IMPRESSION: Mild calcific plaque formation at the origins of both the right and left internal carotid artery causing less than 50% narrowing. N.B. : The above Results were Read Back by Alvin Llanos MD to Dr Jaqueline MD, and understanding confirmed on 02/21/2023 09:45:54 (ET). Electronically Signed: Alvin Llanos MD at 9:47 EDT , ADDENDUM: 02/21/23 0954 IMPRESSION: Mild calcific plaque formation at the origins of both the right and left internal carotid artery causing less than 50% narrowing. N.B. : The above Results were Read Back by Alvin Llanos MD to Dr Jaqueline MD, and understanding confirmed on 02/21/2023 09:45:54 (ET). Electronically Signed: Alvin Llanos MD at 9:47 EDT , Assessment & Plan Assessment/Plan (1) Hypertension: (2) Disequilibrium: PLAN: Plan Patient is a 72-year-old lady presenting with disequilibrium, subjective right- sided weakness and markedly elevated blood pressure 1. Suspected CVA ? Patient presented with disequilibrium as well as right-sided weakness. Initial head CT obtained was negative for acute bleed. CTA did the most Mild calcific plaque formation at the origins of both the right and left internal carotid artery causing less than 50% narrowing. Patient has been admitted to monitored bed subsequently. Placed on every 4 neurochecks as part of her management ordered a 2D echo and MRI to rule out acute CVA. Patient was started on antiplatelet therapy as well as statin therapy pending results of herMRI 2. Hypertension ? Patient does not have any history of hypertension her systolic blood pressure was markedly elevated greater than 200. Given the suspicion for possible CVA aggressive treatment was not initiated MRI results. If acute CVA is ruled out treatment of her blood pressure will be pursued aggressively 3. Class I obesity with BMI of 34.0 ? Weight loss advised 4.DVT prophylaxis - On enoxaparin Time spent in the patient's overall evaluation,decision-making process, review of diagnostic data, adjustment of management, discussion with other providers, nursing nursing and ancillary staff involved in patient's care documentation, 77Minutes Advance planning; did discuss with the patient and family regarding advanced directives as well as CODE STATUS. Did explain the various scenarios involved (FULL CODE, DNR CCA, DNR CCA with no intubation, and DNR CC and what each meant) patient elected to be DNR CCA no intubation. Order was placed. Time spent on discussion 16 minutes. Charges/Coding Visit Charges Inpatient E&M: 43449 Init Hosp L3 Procedures Hospitalists Procedures: 74235 Advncd Care Plan 30 Min 02/21/23 1240 <Electronically signed by Pantera Almodovar MD> Cosigner Signature (if applicable): CC: Dr. Pantera Almodovar MD; No Primary Care Physician~ Signed [facility] Work Phone: 1(817) 629-472209-12-2007 History of Past illness Narrative* Problem Noted Date Resolved Date Other and unspecified angina pectoris 08/01/2007 03/14/2023 documented as of this encounter (statuses as of 03/15/2023) [facility]09-12-2007 History of Past illness Narrative* Problem Noted Date Resolved Date Other and unspecified angina pectoris 08/01/2007 03/14/2023 documented as of this encounter (statuses as of 03/15/2023) [facility]09-12-2007 History of Past illness Narrative* Problem Noted Date Resolved Date Other and unspecified angina pectoris 08/01/2007 03/14/2023 documented as of this encounter (statuses as of 04/04/2023) [address]12-2007 History of Past illness Narrative* Problem Noted Date Resolved Date Other and unspecified angina pectoris 08/01/2007 03/14/2023 documented as of this encounter (statuses as of 04/28/2023) [address]12-2007 History of Past illness Narrative* Problem Noted Date Resolved Date Other and unspecified angina pectoris 08/01/2007 03/14/2023 documented as of this encounter (statuses as of 04/19/2023) [address]12-2007 History of Past illness Narrative* Problem Noted Date Resolved Date Other and unspecified angina pectoris 08/01/2007 03/14/2023 documented as of this encounter (statuses as of 05/03/2023) [address]12-2007 History of Past illness Narrative* Problem Noted Date Resolved Date Other and unspecified angina pectoris 08/01/2007 03/14/2023 documented as of this encounter (statuses as of 05/04/2023) [address]12-2007 History of Past illness Narrative* Problem Noted Date Resolved Date Other and unspecified angina pectoris 08/01/2007 03/14/2023 documented as of this encounter (statuses as of 05/10/2023) [address]12-2007 History of Past illness Narrative* Problem Noted Date Resolved Date Other and unspecified angina pectoris 08/01/2007 03/14/2023 documented as of this encounter (statuses as of 05/11/2023) [address]2007 History of Past illness Narrative* Problem Noted Date Resolved Date Other and unspecified angina pectoris 08/01/2007 03/14/2023 documented as of this encounter (statuses as of 05/16/2023) [address]2007 History of Past illness Narrative* Problem Noted Date Resolved Date Other and unspecified angina pectoris 08/01/2007 03/14/2023 documented as of this encounter (statuses as of 05/19/2023) [address]2007 History of Past illness Narrative* Problem Noted Date Resolved Date Other and unspecified angina pectoris 08/01/2007 03/14/2023 documented as of this encounter (statuses as of 05/22/2023) [address]2007 History of Past illness Narrative* Problem Noted Date Resolved Date Other and unspecified angina pectoris 08/01/2007 03/14/2023 documented as of this encounter (statuses as of 05/23/2023) [address]2007 History of Past illness Narrative* Problem Noted Date Diagnosed Date Resolved Date Other and unspecified angina pectoris 08/01/2007 03/14/2023 documented as of this encounter (statuses as of 05/29/2023) [address]2007 History of Past illness Narrative* Problem Noted Date Diagnosed Date Resolved Date Other and unspecified angina pectoris 08/01/2007 03/14/2023 documented as of this encounter (statuses as of 05/31/2023) [address]2007 History of Past illness Narrative* Problem Noted Date Diagnosed Date Resolved Date Other and unspecified angina pectoris 08/01/2007 03/14/2023 documented as of this encounter (statuses as of 06/06/2023) [address]2007 History of Past illness Narrative* Problem Noted Date Diagnosed Date Resolved Date Other and unspecified angina pectoris 08/01/2007 03/14/2023 documented as of this encounter (statuses as of 06/06/2023) [address]2007 History of Past illness Narrative* Problem Noted Date Diagnosed Date Resolved Date Other and unspecified angina pectoris 08/01/2007 03/14/2023 documented as of this encounter (statuses as of 06/16/2023) [address]2007 History of Past illness Narrative* Problem Noted Date Diagnosed Date Resolved Date Other and unspecified angina pectoris 08/01/2007 03/14/2023 documented as of this encounter (statuses as of 06/16/2023) [address]2007 History of Past illness Narrative* Problem Noted Date Diagnosed Date Resolved Date Other and unspecified angina pectoris 08/01/2007 03/14/2023 documented as of this encounter (statuses as of 06/22/2023) [address]2007 History of Past illness Narrative* Problem Noted Date Diagnosed Date Resolved Date Other and unspecified angina pectoris 08/01/2007 03/14/2023 documented as of this encounter (statuses as of 06/23/2023) [address]2007 History of Past illness Narrative* Problem Noted Date Diagnosed Date Resolved Date Other and unspecified angina pectoris 08/01/2007 03/14/2023 documented as of this encounter (statuses as of 06/28/2023) [address]2007 History of Past illness Narrative* Problem Noted Date Diagnosed Date Resolved Date Other and unspecified angina pectoris 08/01/2007 03/14/2023 documented as of this encounter (statuses as of 07/11/2023) [address]2007 History of Past illness Narrative* Problem Noted Date Diagnosed Date Resolved Date Other and unspecified angina pectoris 08/01/2007 03/14/2023 documented as of this encounter (statuses as of 07/12/2023) [address]2007 History of Past illness Narrative* Problem Noted Date Diagnosed Date Resolved Date Other and unspecified angina pectoris 08/01/2007 03/14/2023 documented as of this encounter (statuses as of 07/25/2023) [address]2007 History of Past illness Narrative* Problem Noted Date Diagnosed Date Resolved Date Other and unspecified angina pectoris 08/01/2007 03/14/2023 documented as of this encounter (statuses as of 08/04/2023) [address]2007 History of Past illness Narrative* Problem Noted Date Diagnosed Date Resolved Date Other and unspecified angina pectoris 08/01/2007 03/14/2023 documented as of this encounter (statuses as of 08/09/2023) [address]2007 History of Past illness Narrative* Problem Noted Date Diagnosed Date Resolved Date Other and unspecified angina pectoris 08/01/2007 03/14/2023 documented as of this encounter (statuses as of 08/12/2023) [address]2007 History of Past illness Narrative* Problem Noted Date Diagnosed Date Resolved Date Other and unspecified angina pectoris 08/01/2007 03/14/2023 documented as of this encounter (statuses as of 08/18/2023) [address]2007 History of Past illness Narrative* Problem Noted Date Diagnosed Date Resolved Date Other and unspecified angina pectoris 08/01/2007 03/14/2023 documented as of this encounter (statuses as of 08/22/2023) [facility]09[facility]12-2007 History of Past illness Narrative* Problem Noted Date Diagnosed Date Resolved Date Other and unspecified angina pectoris 08/01/2007 03/14/2023 documented as of this encounter (statuses as of 09/19/2023) [facility]12-2007 History of Past illness Narrative* Problem Noted Date Diagnosed Date Resolved Date Other and unspecified angina pectoris 08/01/2007 03/14/2023 documented as of this encounter (statuses as of 09/24/2023) [facility]2007 History of Past illness Narrative* Problem Noted Date Diagnosed Date Resolved Date Other and unspecified angina pectoris 08/01/2007 03/14/2023 documented as of this encounter (statuses as of 02/12/2024) [facility] Diagnosis Onset Date Resolution Status Acute CVA (cerebrovascular accident) acute Acute right-sided weakness a cute Hypertension [facility] Work Phone: Evaluation note* Diagnosis Onset Date Resolution Status Acute CVA (cerebrovascular accident) acute Acute right-sided weakness a cute Disequilibrium acute Hypertension [facility] Work Phone: Evaluation note* Diagnosis Cerebrovascular accident (CVA), unspecified mechanism (HCC)- Primary Right sided weakness Muscle weakness (generalized) Bilateral carotid bruits Anxiety Anxiety state, unspecified Hypertension, essential Unspecified essential hypertension Right hemiparesis (HCC) Hemiplegia, unspecified, affecting unspecified side [facility] Diagnosis Right hemiparesis (HCC)- Primary Hemiplegia, unspecified, affecting unspecified side Cerebrovascular accident (CVA), unspecified mechanism (HCC) [facility] Diagnosis Cerebrovascular accident (CVA), unspecified mechanism (HCC)- Primary Right sided weakness Muscle weakness (generalized) documented in this encounter [facility] note* Diagnosis Cerebrovascular accident (CVA), unspecified mechanism (HCC)- Primary Right sided weakness Muscle weakness (generalized) documented in this encounter [facility] note* Diagnosis Cerebrovascular accident (CVA), unspecified mechanism (HCC)- Primary Right sided weakness Muscle weakness (generalized) [facility] Diagnosis Cerebrovascular accident (CVA), unspecified mechanism (HCC)- Primary Right sided weakness Muscle weakness (generalized) [facility] Diagnosis Cerebrovascular accident (CVA), unspecified mechanism (HCC)- Primary Right sided weakness Muscle weakness (generalized) [facility] Diagnosis Encounter to establish care- Primary Other reasons for seeking consultation Cerebrovascular accident (CVA), unspecified mechanism (HCC) Right sided weakness Muscle weakness (generalized) Essential hypertension, benign Chronic insomnia Insomnia, unspecified Anxiety Anxiety state, unspecified Overweight (BMI 25.0-29.9) Overweight Encounter for screening for osteoporosis Special screening for osteoporosis Screening mammogram for breast cancer Asymptomatic postmenopausal state [facility] Diagnosis Cerebrovascular accident (CVA), unspecified mechanism (HCC)- Primary Right sided weakness Muscle weakness (generalized) [facility] Diagnosis Cerebrovascular accident (CVA), unspecified mechanism (HCC)- Primary Right sided weakness Muscle weakness (generalized) [facility] Diagnosis Cerebrovascular accident (CVA), unspecified mechanism (HCC)- Primary Right sided weakness Muscle weakness (generalized) [facility] Diagnosis Cerebrovascular accident (CVA), unspecified mechanism (HCC)- Primary Right sided weakness Muscle weakness (generalized) [facility] Diagnosis Arterial ischemic stroke (HCC)- Primary Unspecified cerebral artery occlusion with cerebral infarction 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) [facility] Diagnosis Cerebrovascular accident (CVA), unspecified mechanism (HCC)- Primary Right sided weakness Muscle weakness (generalized) [facility] Diagnosis Cerebrovascular accident (CVA), unspecified mechanism (HCC)- Primary Right sided weakness Muscle weakness (generalized) [facility] Diagnosis Cerebrovascular accident (CVA), unspecified mechanism (HCC)- Primary [facility] Diagnosis Late effects of cerebrovascular disease- Primary Unspecified late effects of cerebrovascular disease Right sided weakness Muscle weakness (generalized) Mixed hyperlipidemia Essential hypertension Unspecified essential hypertension History of ischemic stroke documented in this encounter [facility] note* Diagnosis Cerebrovascular accident (CVA), unspecified mechanism (HCC)- Primary Right sided weakness Muscle weakness (generalized) documented in this encounter [facility] note* Diagnosis Hypertension, essential- Primary Unspecified essential hypertension Chronic insomnia Insomnia, unspecified Cerebrovascular accident (CVA), unspecified mechanism (HCC) Major depressive disorder, remission status unspecified, unspecified whether recurrent Right sided weakness Muscle weakness (generalized) Bilateral carotid bruits Osteoporosis, unspecified osteoporosis type, unspecified pathological fracture presence documented in this encounter [facility] note* Diagnosis Screening mammogram for breast cancer documented in this encounter [facility] note* Diagnosis Encounter for screening for osteoporosis Special screening for osteoporosis Asymptomatic postmenopausal state documented in this encounter [facility] note* Diagnosis Chronic insomnia Insomnia, unspecified documented in this encounter [facility] note* Diagnosis PATITO (acute kidney injury) (HCC)- Primary Acute kidney failure, unspecified documented in this encounter [facility] note* Diagnosis Hypertension, essential- Primary Unspecified essential hypertension Hyperlipidemia, mixed Mixed hyperlipidemia Anxiety Anxiety state, unspecified Major depressive disorder, remission status unspecified, unspecified whether recurrent Class 1 obesity due to excess calories with body mass index (BMI) of 30.0 to 30.9 in adult, unspecified whether serious comorbidity present Cerebrovascular accident (CVA), unspecified mechanism (HCC) Daytime somnolence Hypersomnia, unspecified Chronic right shoulder pain Pain in joint, shoulder region Limited range of motion (ROM) of shoulder Screening mammogram, encounter for Chronic right shoulder pain Pain in joint, shoulder region Limited range of motion (ROM) of shoulder documented in this encounter [facility] note* Diagnosis Cerebrovascular accident (CVA), unspecified mechanism (HCC) documented in this encounter [facility] note* Diagnosis PATITO (acute kidney injury) (HCC)- Primary Acute kidney failure, unspecified Hyperglycemia Other abnormal glucose documented in this encounter [facility] note* Diagnosis Hypertension, essential- Primary Unspecified essential hypertension Hyperlipidemia, mixed Mixed hyperlipidemia Cerebrovascular accident (CVA), unspecified mechanism (HCC) PATITO (acute kidney injury) (HCC) Acute kidney failure, unspecified Right hemiparesis (HCC) Hemiplegia, unspecified, affecting unspecified side Right leg swelling Swelling of limb Chronic right shoulder pain Pain in joint, shoulder region Limited range of motion (ROM) of shoulder Daytime somnolence Hypersomnia, unspecified Class 1 obesity due to excess calories with body mass index (BMI) of 30.0 to 30.9 in adult, unspecified whether serious comorbidity present Screening for colon cancer Special screening for malignant neoplasms, colon [facility] Diagnosis Chronic right shoulder pain Pain in joint, shoulder region Limited range of motion (ROM) of shoulder [facility] Diagnosis Chronic insomnia Insomnia, unspecified [facility] Diagnosis Acute cystitis without hematuria- Primary Acute cystitis [facility]* Diagnosis Hospital discharge follow-up- Primary Other follow-up examination Abnormal CT scan of lung Other nonspecific abnormal finding of lung field Encounter for immunization Need for other specified prophylactic vaccination against single bacterial disease Pneumonia of left lung due to infectious organism, unspecified part of lung Atrial flutter, unspecified type (HCC) [facility] Diagnosis Paroxysmal ventricular tachycardia (HCC)- Primary Paroxysmal ventricular tachycardia [facility] Diagnosis Low serum uric acid for age- Primary [facility]* Diagnosis Cerebrovascular accident (CVA), unspecified mechanism (HCC) [facility] Diagnosis Low serum uric acid for age documented [facility] Diagnosis Paroxysmal ventricular tachycardia (HCC) Paroxysmal ventricular tachycardia [facility] Diagnosis Low serum uric acid for age [facility] Diagnosis Hypertension, essential- Primary Unspecified essential hypertension Encounter for immunization Need for other specified prophylactic vaccination against single bacterial disease Anemia, unspecified type Cerebrovascular accident (CVA), unspecified mechanism (HCC) Abnormal CT scan of lung Other nonspecific abnormal finding of lung field Atrial flutter, unspecified type (HCC) Hyperlipidemia, mixed Mixed hyperlipidemia Daytime somnolence Hypersomnia, unspecified [facility]* Diagnosis Abnormal CT scan of lung Other nonspecific abnormal finding of lung field [facility] Diagnosis Thyroid nodule- Primary Nontoxic uninodular goiter [facility] Diagnosis Thyroid nodule Nontoxic uninodular goiter documented in this encounter [facility] note* Diagnosis Chronic insomnia Insomnia, unspecified documented in this encounter [facility] note* Diagnosis Cerebrovascular accident (CVA), unspecified mechanism (HCC) documented in this encounter [facility] note* Diagnosis Encounter for screening mammogram for breast cancer documented in this encounter [facility] note* Diagnosis Paroxysmal ventricular tachycardia (HCC) Paroxysmal ventricular tachycardia Low serum uric acid for age documented in this encounter [facility] note* Diagnosis Chronic insomnia Insomnia, unspecified documented in this encounter [facility] note* Diagnosis Paroxysmal ventricular tachycardia (HCC) Paroxysmal ventricular tachycardia documented in this encounter [facility] note* Diagnosis Benign hypertension- Primary Essential hypertension, benign Coronary artery vasospasm Prinzmetal angina Mixed hyperlipidemia Atypical atrial flutter (HCC) 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 Long-term (current) use of anticoagulants History of stress test Other specified conditions influencing health status Obesity, Class I, BMI 30-34.9 Obesity, unspecified [facility] Diagnostic Procedure Only (Routine) - Pending Review Specialty Diagnoses / Procedures Referred By Ti bhaena Referred To Contact BR [facility]AG[facility] Diagnoses Screening mammogram for breast cancer Procedures LYNETTE SCREENING SCREENING MAMMOGRAPHY BI 2-VIEW BREAST INC Ceci Berumen MD [address] [place] [address] [facility] [address] [place] [address] Referral ID Status Reason Start Date Expiration Date Visits Requested Visits Authorized [id number] Pending Review Auto-Generat ed Referral 05/15/2023 06/13/2024 [facility] Diagnostic Procedure Only (Routine) - Pending Review Specialty Diagnoses / Procedures Referred By Ti bahena Referred To Contact BR IMAGING Diagnoses Screening mammogram for breast cancer Procedures LYNETTE SCREENING SCREENING MAMMOGRAPHY BI 2-VIEW BREAST INC Ceci Berumen MD [address] [place] [address] [facility] [address] [place] [address] Referral ID Status Reason Start Date Expiration Date Visits Requested Visits Authorized [id number] Pending Review Auto-Generat ed Referral 05/15/2023 06/13/2024 1 1 T [facility] for referral (narrative)* Diagnostic Procedure Only (Routine) - Authorized Specialty Diagnoses / Procedures Referred By Ti bahena Referred To Contact US IMAGING Diagnoses PATITO (acute kidney injury) (HCC) Procedures US KIDNEY/BLADDER US RETROPERITONEAL REAL TIME W/IMAGE COMPLETE Ceci Vera MD [address] [place] [id number] [facility] Referral ID Status Reason Start Date Expiration Date Visits Requested Visits Authorized [id number] Authorized Auto-Generat ed Referral 04/25/2024 11/19/2024 1 1 T [facility] for referral (narrative)* Diagnostic Procedure Only (Routine) - Closed Specialty Diagnoses / Procedures Referred By Ti bahena Referred To Contact XR IMAGING Diagnoses Chronic right shoulder pain Limited range of motion (ROM) of shoulder Procedures XR SHOULDER GENERAL 3V OR MORE AP/TRUE AP/OTHER RIGHT RADEX SHOULDER COMPLETE MINIMUM 2 VIEWS Ceci Vera MD [address] [place] [address] X[facility] Imaging [facility] Referral ID Status Reason Start Date Expiration Date V isits Requested Visits Authorized [id number] Closed Auto-Generate d Referral 03/22/2024 04/21/2025 1 1 T [facility] for visit Narrative* Diagnostic Procedure Only (Routine) - Pending Review Specialty Diagnoses / Procedures Referred By Ti bahena Referred To Contact [facility] Diagnoses Screening mammogram for breast cancer Procedures LYNETTE SCREENING SCREENING MAMMOGRAPHY BI 2-VIEW BREAST INC CAD Ceci Vera MD [address] [place] [id number] [facility] [address] [place] [address] Referral ID Status Reason Start Date Expiration Date Visits Requested Visits Authorized [id number] Pending Review Auto-Generat ed Referral 05/15/2023 06/13/2024 1 1 [facility]* Diagnostic Procedure Only (Routine) - Closed Specialty Diagnoses / Procedures Referred By Contac t Referred To Contact XR IMAGING Diagnoses Chronic right shoulder pain Limited range of motion (ROM) of shoulder Procedures XR SHOULDER GENERAL 3V OR MORE AP/TRUE AP/OTHER RIGHT RADEX SHOULDER COMPLETE MINIMUM 2 VIEWS Ceci Vear MD [address] [place] [address] [place] [address] Referral ID Status Reason Start Date Expiration Date V isits Requested Visits Authorized [id number] Closed Auto-Generate d Referral 03/22/2024 04/21/2025 1 1 [facility] Chief Complaint and Reason for Visit Chief Complaint SUSPECTED CVA Reason for Visit Acute CVA (cerebrova scular accident) Acute right-sided weakness Hypertension Chief Complaint SUSPECTED CVA SUSPECTED CVA Reason for Visit Acute CVA (cerebrova scular accident) Acute right-sided weakness Disequilibrium Hypertension Advance Directives Date Activated Date Inactivated Comments 08/16/2024 8:28 PM Question Answer Comments Full Code Order Discussed With: Patient Date Activated Date Inactivated Comments 08/16/2024 8:28 PM 08/19/2024 9:10 PM Advance Directive Response Recorded Date/ Time Living Will No February 21, 2023 8:52am Power of Loss Prevention Associate No February 21 8:52am Advance Directive Response Recorded Date/ Time Living Will No February 21, 2023 12:41pm Power of Loss Prevention Associate No February 21 12:41pm Date Activated Date Inactivated Comments 08/16/2024 8:28 PM 08/19/2024 9:10 PM Question Answer Comments Full Code Order Discussed With: Patient Reason for Referral Specialty Diagnoses / Procedures Referred By Contac t Referred To Contact Neurology Diagnoses Cerebrovascular accident (CVA), unspecified mechanism (HCC) Right sided weakness Procedures CONSULT TO NEUROLOGY OFFICE/OUTPATIENT NEW HIGH MDM 60-74 MINUTES Ceci Vera MD [address] [place] [address] Referral ID Status Reason Start Date Expiration Date Visits Requested Visits Authorized [id number] Pending Review PCP Requested Referral 03/13/2023 03/12/2024 1 1 Specialty Diagnoses / Procedures Referred By Contac t Referred To Contact [facility] Diagnoses Cerebrovascular accident (CVA), unspecified mechanism (HCC) Right sided weakness Procedures CONSULT TO PRODUCTION MAINTENANCE MECHANIC OCCUPATIONAL THERAPY EVAL HIGH COMPLEX 60 MINS Ceci Vera MD [address] [place] [id number] [facility] [facility] [address] [address] Referral ID Status Reason Start Date Expiration Date Visits Requested Visits Authorized [id number] Pending Review Auto-Generat ed Referral 03/13/2023 03/12/2024 1 1 Specialty Diagnoses / Procedures Referred By Contac t Referred To [facility] Diagnoses Cerebrovascular accident (CVA), unspecified mechanism (HCC) Right sided weakness Procedures CONSULT TO PHYSICAL THERAPY PHYSICAL THERAPY EVALUATION HIGH COMPLEX 45 MINS Ceci Vera MD [address] [place] [id number] [address] Referral ID Status Reason Start Date Expiration Date Visits Requested Visits Authorized [id number] Pending Review Auto-Generat ed Referral 03/13/2023 03/12/2024 1 1 Specialty Diagnoses / Procedures Referred By Contac t Referred To [facility] [place] Diagnoses Cerebrovascular accident (CVA), unspecified mechanism (HCC) Bilateral carotid bruits Procedures US CAROTID ARTERIES ALEXIS VAS LAB DUPLEX SCAN EXTRACRANIAL ART COMPL BI STUDY Ceci Vera MD [facility] [place] [address] [facility] [address] [address] Referral ID Status Reason Start Date Expiration Date Visits Requested Visits Authorized [id number] Pending Review Auto-Generat ed Referral 03/13/2023 03/12/2024 1 1 Specialty Diagnoses / Procedures Referred By Contac t Referred To Contact [facility] Diagnoses Cerebrovascular accident (CVA), unspecified mechanism (HCC) Right sided weakness Procedures PT REHAB FOLLOW UP ORDER THERAPEUTIC EXERCISES RE, EA 15 MIN. Darrian Nolasco, THERESE [facility] [place] [address] [place] [address] Referral ID Status Reason Start Date Expiration Date Visits Requested Visits Authorized [id number] Pending Review PCP Requested Referral Auto-Generate d Referral 05/11/2023 08/09/2023 1 1 Referral ID Status Reason Start Date Expiration Date Visits Requested Visits Authorized [id number] Authorized PCP Requested Referral Auto-Generate d Referral Patient Cleared - Qualified [id number] 06/07/2023 09/05/2023 99 [phone] Specialty Diagnoses / Procedures Referred By Contac t Referred To Contact [facility] Diagnoses Arterial ischemic stroke (HCC) Procedures CONSULT TO PRODUCTION MAINTENANCE MECHANIC OCCUPATIONAL THERAPY EVAL HIGH COMPLEX 60 MINS Trista David MD [address] [place] [address] [facility] [address] [address] Referral ID Status Reason Start Date Expiration Date Visits Requested Visits Authorized [id number] Pending Review Auto-Generat ed Referral 06/27/2023 06/19/2024 1 1 Specialty Diagnoses / Procedures Referred By Contac t Referred To Contact US IMAGING Diagnoses Arterial ischemic stroke (HCC) 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) Procedures US CAROTID BILATERAL Trista David MD [address] [place] [address] Us Imaging Referral ID Status Reason Start Date Expiration Date Visits Requested Visits Authorized [id number] Pending Review Auto-Generat ed Referral 07/21/2023 07/19/2024 1 1 Specialty Diagnoses / Procedures Referred By Contac t Referred To Contact [facility] Diagnoses Chronic right shoulder pain Limited range of motion (ROM) of shoulder Procedures CONSULT TO PHYSICAL THERAPY PHYSICAL THERAPY EVALUATION HIGH COMPLEX 45 MINS Ceci Vera MD [address] [place] [address] [facility] [address] [address] Referral ID Status Reason Start Date Expiration Date Visits Requested Visits Authorized [id number] Pending Review Auto-Generat ed Referral 03/22/2024 03/22/2025 1 1 Specialty Diagnoses / Procedures Referred By Contac t Referred To Contact MR IMAGING Diagnoses Chronic right shoulder pain Limited range of motion (ROM) of shoulder Procedures MRI SHOULDER WO IVCON RIGHT MRI ANY JT UPPER EXTREMITY W/O CONTRAST MATRL Ceci Vera MD [address] [place] [address] [place] [address] Referral ID Status Reason Start Date Expiration Date Visits Requested Visits Authorized [id number] Pending Review Auto-Generat ed Referral 03/22/2024 04/21/2025 1 1 Specialty Diagnoses / Procedures Referred By Contac t Referred To Contact XR IMAGING Diagnoses Chronic right shoulder pain Limited range of motion (ROM) of shoulder Procedures XR SHOULDER GENERAL 3V OR MORE AP/TRUE AP/OTHER RIGHT RADEX SHOULDER COMPLETE MINIMUM 2 VIEWS Ceci Vera MD [address] [place] [address] [place] [address] Referral ID Status Reason Start Date Expiration Date V isits Requested Visits Authorized [id number] Closed Auto-Generate d Referral 03/22/2024 04/21/2025 1 1 Specialty Diagnoses / Procedures Referred By Contac t Referred To Contact BR IMAGING Diagnoses Screening mammogram, encounter for Procedures LYNETTE SCREENING SCREENING MAMMOGRAPHY BI 2-VIEW BREAST INC CAD Ceci Vera MD [address] [place] [address] [facility] [address] [place] [address] Referral ID Status Reason Start Date Expiration Date Visits Requested Visits Authorized [id number] Pending Review Auto-Generat ed Referral 05/22/2024 04/21/2025 1 1 Specialty Diagnoses / Procedures Referred By Contac t Referred To Contact [facility] Diagnoses Cerebrovascular accident (CVA), unspecified mechanism (HCC) Procedures US CAROTID ARTERIES ALEXIS VAS LAB DUPLEX SCAN EXTRACRANIAL ART COMPL BI STUDY Ceci Vera MD [address] [place] [address] [facility] [place] [address] [place] [address] Referral ID Status Reason Start Date Expiration Date Visits Requested Visits Authorized [id number] Pending Review Auto-Generat ed Referral 03/22/2024 03/22/2025 1 1 Specialty Diagnoses / Procedures Referred By Contact Referred To Contact [facility] Diagnoses Daytime somnolence Procedures HOME SLEEP APNEA TEST (HSAT) SLEEP STD AIRFLOW HRT RATE&O2 SAT EFFORT Ceci Hernández MD [address] [place] [address] [facility] [place] [address] [place] [address] Referral ID Status Reason Start Date Expiration Date Visits Requested Visits Authorized [id number] Pending Review Auto-Generat ed Referral 03/22/2024 03/22/2025 1 1 Specialty Diagnoses / Procedures Referred By Contac t Referred To Contact CT IMAGING Diagnoses Abnormal CT scan of lung Procedures CT CHEST WO IVCON DIAGNOSTIC COMPUTED TOMOGRAPHY THORAX W/O CNTRST PodlogarRadha APRN.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 ENGINEER [address] [place] [address] [place] [address] Referral ID Status Reason Start Date Expiration Date Visits Requested Visits Authorized [id number] New Request Auto-Generat ed Referral 10/02/2025 1 1 Summary Purpose Family History No Family History Records Found Additional Source Comments Care Teams (unrecognized sec tion and content) Team Status: Active Member Role Status Dates Dr. Carlos Heredia III, MD Family Provider Active No Primary Care Physician Primary Care Provider Active Team Status: Active Member Role Status Dates Dr. Yue Mendoza DO Emergency Provider Active No Primary Care Physician Primary Care Provider Active Dr. Pantera Almodovar MD Admit Provider, Attending Provid er Active Team Status: Active Member Role Status Dates Dr. Yue Mendoza DO Emergency Provider Active No Primary Care Physician Primary Care Provider Active Dr. Pantera Almodovar MD Admit Provider, At tending Provider, Other Provider Active Team Status: Active Member Role Status Dates No Primary Care Physician Primary Care Provider Active Dr. Kayden Ríos MD Attending Provider Activ e Team Status: Inactive Member Role Status Dates Dr. Yue Mendoza , Emergency Provider Active No Primary Care Physician Primary Care Provider Active Dr. Pantera Almodovar MD Admit Provider, Attending Provid er Active [employer] Portal Developer Relationship Specialty Start Date End Date Ceci Vera MD [address] [place] [address] PCP - General Family Medicine 03/13/23 03/13/23 [employer] Portal Developer Relationship Specialty Start Date End Date Ceci Vera MD [address] [place] [address] PCP - General Family Medicine 05/15/23 [employer] Portal Developer Relationship Specialty Start Date End Date Ceci Vera MD [address] [place] [address] PCP - General Family Medicine 05/15/23 [employer] Portal Developer Relationship Specialty Start Date End Date Ceci Vera MD [address] [place] [address] PCP - General Family Medicine 05/15/23 [employer] Portal Developer Relationship Specialty Start Date End Date Ceci Vera MD [address] [place] [address] PCP - General Family Medicine 05/15/23 [employer] Portal Developer Relationship Specialty Start Date End Date Ceci Vera MD [address] [place] [address] PCP - General Family Medicine 05/15/23 [employer] Portal Developer Relationship Specialty Start Date End Date Ceci Vera MD [address] [place] [address] PCP - General Family Medicine 05/15/23 [employer] Portal Developer Relationship Specialty Start Date End Date Ceci Vera MD [address] [place] [address] PCP - General Family Medicine 05/15/23 [employer] Portal Developer Relationship Specialty Start Date End Date Ceci Vera MD [address] [place] [address] PCP - General Family Medicine 05/15/23 [employer] Portal Developer Relationship Specialty Start Date End Date Ceci Vera MD [address] [place] [address] PCP - General Family Medicine 05/15/23 [employer] Portal Developer Relationship Specialty Start Date End Date Ceci Vera MD [address] [place] [address] PCP - General Family Medicine 05/15/23 [employer] Portal Developer Relationship Specialty Start Date End Date Ceci Vera MD [address] [place] [address] PCP - General Family Medicine 05/15/23 [employer] Portal Developer Relationship Specialty Start Date End Date Ceci Vera MD [address] [place] [address] PCP - General Family Medicine 05/15/23 [employer] Portal Developer Relationship Specialty Start Date End Date Ceci Vera MD [address] [place] [address] PCP - General Family Medicine 05/15/23 [employer] Portal Developer Relationship Specialty Start Date End Date Ceci Vera MD [address] [place] [address] PCP - General Family Medicine 05/15/23 [employer] Portal Developer Relationship Specialty Start Date End Date Ceci Vera MD [address] [place] [address] PCP - General Family Medicine 05/15/23 [employer] Portal Developer Relationship Specialty Start Date End Date Ceci Vera MD [address] [place] [address] PCP - General Family Medicine 05/15/23 [employer] Portal Developer Relationship Specialty Start Date End Date Ceci Vera MD [address] [place] [address] PCP - General Family Medicine 05/15/23 [employer] Portal Developer Relationship Specialty Start Date End Date Ceci Vera MD [address] [place] [address] PCP - General Family Medicine 05/15/23 [employer] Portal Developer Relationship Specialty Start Date End Date Ceci Vera MD [address] [place] [address] PCP - General Family Medicine 05/15/23 [employer] Portal Developer Relationship Specialty Start Date End Date Ceci Vera MD [address] [place] [address] PCP - General Family Medicine 05/15/23 [employer] Portal Developer Relationship Specialty Start Date End Date Ceci Vera MD [address] [place] [address] PCP - General Family Medicine 05/15/23 [employer] Portal Developer Relationship Specialty Start Date End Date Ceci Vera MD [address] [place] [place] [address] PCP - General Family Medicine 05/15/23 [employer] Portal Developer Relationship Specialty Start Date End Date Ceci Vera MD [address] [place] [address] PCP - General Family Medicine 05/15/23 ProviderBrian MD Waistband Setter [employer] 08/19/24 09/01/24 [employer] Portal Developer Relationship Specialty Start Date End Date Ceci Vera MD [address] [place] [address] PCP - General Family Medicine 05/15/23 Brian Reich MD Waistband Setter [employer] 08/19/24 09/01/24 [employer] Portal Developer Relationship Specialty Start Date End Date Ceci Vera MD [address] [place] [address] PCP - General Family Medicine 05/15/23 [employer] Portal Developer Relationship Specialty Start Date End Date Ceci Vera MD [address] [place] [address] PCP - General Family Medicine 05/15/23 [employer] Portal Developer Relationship Specialty Start Date End Date Ceci Vera MD [address] [place] [address] PCP - General Family Medicine 05/15/23 [employer] Portal Developer Relationship Specialty Start Date End Date Ceci Vera MD [address] [place] [address] PCP - General Family Medicine 05/15/23 [employer] Portal Developer Relationship Specialty Start Date End Date Ceci Vera MD [address] [place] [address] PCP - General Family Medicine 05/15/23 Podlogar, Radha, 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 [address] [place] [address] Waistband Setter [employer] Family Medicine 10/26/24 [employer] Portal Developer Relationship Specialty Start Date End Date Ceci Vera MD [address] [place] [address] PCP - General Family Medicine 05/15/23 Podlogar, Radha, 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 [address] [place] [address] Waistband Setter [employer] Family Medicine 10/26/24 [employer] Portal Developer Relationship Specialty Start Date End Date Ceci Vera MD [address] [place] [address] PCP - General Family Medicine 05/15/23 Podlogar, Radha, 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 [address] [place] [address] Waistband Setter [employer] Family Medicine 10/26/24 [employer] Portal Developer Relationship Specialty Start Date End Date Ceci Vera MD [address] [place] [address] PCP - General Family Medicine 05/15/23 Podlogar, Radha, 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 [address] [place] [address] Waistband Setter [employer] Family [facility] 10/26/24 [employer] Portal Developer Relationship Specialty Start Date End Date Ceci Vera MD [address] [place] [address] PCP - General Family Medicine 05/15/23 Podlogar, REY GarciaN.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 ENGINEER [address] [place], [place] [address] Waistband Setter [employer] Family Medicine 10/26/24 [employer] Portal Developer Relationship Specialty Start Date End Date Ceci Vera MD [address] [place], [place] [phone] PCP - General Family Medicine 05/15/23 Podlogar, Radha 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 [address] [place] [address] Waistband Setter [employer] Family Medicine 10/26/24 [employer] Portal Developer Relationship Specialty Start Date End Date Ceci Vera MD [address] [place] [address] PCP - General Family Medicine 05/15/23 Podlogar, Radha, 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 [address] [place] [address] Waistband [employer] Family Medicine 10/26/24 Rosalind Stoll 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 [address] [place], [place] [address] Waistband [employer] Family [facility] 02/10/25 [employer] Portal Developer Relationship Specialty Start Date End Date Ceci Vera MD [address] [place], [place] [address] PCP - General Family Medicine 05/15/23 Podlogar, Radha, 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 [address] [place], [place] [address] Waistband [employer] Family Medicine 10/26/24 Rosalind Stoll, 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 [address] [place] [address] [facility] Family [facility] 01/31/25 02/09/25 Rosalind Stoll, 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 [address] [place] [address] [facility] 02/10/25 I[employer] Websphere Portal Developer Relationship Specialty Start Date End Date Ceci Vera MD [address] [place] [address] PCP - General Family Medicine 05/15/23 PodlogarRadha, 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 [address] [place] [address] [facility] Medicine 10/26/24 Rosalind Stoll 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 [address] [place] [address] [facility] 02/10/25 I[employer] Web[employer] Portal Developer Relationship Specialty Start Date End Date Ceci Vera MD [address] [place] [address] PCP - General Family Medicine 05/15/23 Podlogar, Radha, 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 [address] [place] [address] [facility] Family Medicine 10/26/24 Rosalind Stoll, 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 [address] [place] [address] [facility] Medicine 02/10/25 I[employer] Web[employer] Portal Developer Relationship Specialty Start Date End Date Ceci Vera MD [address] [place] [address] PCP - General Family Medicine 05/15/23 PodlogarRadha APRN.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 ENGINEER [address] [place] [address] Waistband Set[employer] Family Medicine 10/26/24 Rosalind Stoll 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 [address] [facility] [place] [address] Waistband Setter [employer] Family Medicine 05/01/25 [employer] Portal Developer Relationship Specialty Start Date End Date Ceci Vera MD [address] [place] [address] PCP - General Family Medicine 05/15/23 PodlogarRadha 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 [address] [place] [address] Waistband [employer] Family Medicine 10/26/24 Rosalind Stoll 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 [address] [facility] [place] [address] Waistband Setter [employer] Family Medicine 05/01/25 [employer] Portal Developer Relationship Specialty Start Date End Date Ceci Vera MD [address] [place] [address] PCP - General Family Medicine 05/15/23 OrvillelogRadha cartagena 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 [address] [place] [address] Waistband Setter [employer] Family Medicine 10/26/24 Rosalind Stoll APRN.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 ENGINEER [address] [place] [address] Waistband [employer] Family Medicine 05/01/25 [employer] Portal Developer Relationship Specialty Start Date End Date Ceci Vera MD [address] [place], [place] [address] PCP - General Family Medicine 05/15/23 PodlogarRadha APRN.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 ENGINEER [address] [place] [address] Waistband Set[employer] Family Medicine 10/26/24 Rosalind Stoll APRN.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 ENGINEER [facility] [place] [address] Waistband Setter [employer] Family Medicine 05/01/25 [employer] Portal Developer Relationship Specialty Start Date End Date Ceci eVra MD [address] [place] [address] PCP - General Family Medicine 05/15/23 PodlogarRadha APRN.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 ENGINEER [address] [place] [address] Waistband Setter [employer] Family Medicine 10/26/24 Rosalind Stoll APRN.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 ENGINEER [address] [place] [address] Waistband Setter [employer] Family Medicine 05/01/25 [employer] Portal Developer Relationship Specialty Start Date End Date Ceci Vera MD [address] [place] [address] PCP - General Family Medicine 05/15/23 PodlogarRadha APRN.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 ENGINEER [address] [place] [address] [facility] 10/26/24 Rosalind Stoll APRN.[facility] [address] [place] [address] [facility] 05/01/25 Goals (unrecognized section and content) Goals may be documented in a n alternate section Source Comments (unrecognize d section and content) In the event this informatio n is protected by the Federal Confidentiality of Alcohol and Drug Abuse Patient Records regulations: The Federal rules restrict any use of the information to criminally investigate or prosecute any alcohol or drug abuse patient.[facility] the event this information is protected by the Federal Confidentiality of Alcohol and Drug Abuse Patient Records regulations: The Federal rules restrict any use of the information to criminally investigate or prosecute any alcohol or drug abuse patient.[facility] Hospital[facility] the event this information is protected by the Federal Confidentiality of Alcohol and Drug Abuse Patient Records regulations: The Federal rules restrict any use of the information to criminally investigate or prosecute any alcohol or drug abuse patient.[facility] Hospital[facility] the event this information is protected by the Federal Confidentiality of Alcohol and Drug Abuse Patient Records regulations: The Federal rules restrict any use of the information to criminally investigate or prosecute any alcohol or drug abuse patient.[facility] Hospital[facility] the event this information is protected by the Federal Confidentiality of Alcohol and Drug Abuse Patient Records regulations: The Federal rules restrict any use of the information to criminally investigate or prosecute any alcohol or drug abuse patient.[facility] Hospital[facility] the event this information is protected by the Federal Confidentiality of Alcohol and Drug Abuse Patient Records regulations: The Federal rules restrict any use of the information to criminally investigate or prosecute any alcohol or drug abuse patient.[facility] Hospital[facility] the event this information is protected by the Federal Confidentiality of Alcohol and Drug Abuse Patient Records regulations: The Federal rules restrict any use of the information to criminally investigate or prosecute any alcohol or drug abuse patient.[facility] Hospital[facility] the event this information is protected by the Federal Confidentiality of Alcohol and Drug Abuse Patient Records regulations: The Federal rules restrict any use of the information to criminally investigate or prosecute any alcohol or drug abuse patient.[facility] HospitalIn the event this information is protected by the Federal Confidentiality of Alcohol and Drug Abuse Patient Records regulations: The Federal rules restrict any use of the information to criminally investigate or prosecute any alcohol or drug abuse patient.[facility] Hospital[facility] the event this information is protected by the Federal Confidentiality of Alcohol and Drug Abuse Patient Records regulations: The Federal rules restrict any use of the information to criminally investigate or prosecute any alcohol or drug abuse patient.[facility] HospitalIn the event this information is protected by the Federal Confidentiality of Alcohol and Drug Abuse Patient Records regulations: The Federal rules restrict any use of the information to criminally investigate or prosecute any alcohol or drug abuse patient.[facility] HospitalIn the event this information is protected by the Federal Confidentiality of Alcohol and Drug Abuse Patient Records regulations: The Federal rules restrict any use of the information to criminally investigate or prosecute any alcohol or drug abuse patient.[facility] HospitalIn the event this information is protected by the Federal Confidentiality of Alcohol and Drug Abuse Patient Records regulations: The Federal rules restrict any use of the information to criminally investigate or prosecute any alcohol or drug abuse patient.[facility] HospitalIn the event this information is protected by the Federal Confidentiality of Alcohol and Drug Abuse Patient Records regulations: The Federal rules restrict any use of the information to criminally investigate or prosecute any alcohol or drug abuse patient.[facility] HospitalIn the event this information is protected by the Federal Confidentiality of Alcohol and Drug Abuse Patient Records regulations: The Federal rules restrict any use of the information to criminally investigate or prosecute any alcohol or drug abuse patient.[facility] HospitalIn the event this information is protected by the Federal Confidentiality of Alcohol and Drug Abuse Patient Records regulations: The Federal rules restrict any use of the information to criminally investigate or prosecute any alcohol or drug abuse patient.[facility] HospitalIn the event this information is protected by the Federal Confidentiality of Alcohol and Drug Abuse Patient Records regulations: The Federal rules restrict any use of the information to criminally investigate or prosecute any alcohol or drug abuse patient.[facility] HospitalIn the event this information is protected by the Federal Confidentiality of Alcohol and Drug Abuse Patient Records regulations: The Federal rules restrict any use of the information to criminally investigate or prosecute any alcohol or drug abuse patient.[facility] HospitalIn the event this information is protected by the Federal Confidentiality of Alcohol and Drug Abuse Patient Records regulations: The Federal rules restrict any use of the information to criminally investigate or prosecute any alcohol or drug abuse patient.[facility] HospitalIn the event this information is protected by the Federal Confidentiality of Alcohol and Drug Abuse Patient Records regulations: The Federal rules restrict any use of the information to criminally investigate or prosecute any alcohol or drug abuse patient.[facility] HospitalIn the event this information is protected by the Federal Confidentiality of Alcohol and Drug Abuse Patient Records regulations: The Federal rules restrict any use of the information to criminally investigate or prosecute any alcohol or drug abuse patient.[facility] HospitalIn the event this information is protected by the Federal Confidentiality of Alcohol and Drug Abuse Patient Records regulations: The Federal rules restrict any use of the information to criminally investigate or prosecute any alcohol or drug abuse patient.[facility] HospitalIn the event this information is protected by the Federal Confidentiality of Alcohol and Drug Abuse Patient Records regulations: The Federal rules restrict any use of the information to criminally investigate or prosecute any alcohol or drug abuse patient.[facility] HospitalIn the event this information is protected by the Federal Confidentiality of Alcohol and Drug Abuse Patient Records regulations: The Federal rules restrict any use of the information to criminally investigate or prosecute any alcohol or drug abuse patient.[facility] HospitalIn the event this information is protected by the Federal Confidentiality of Alcohol and Drug Abuse Patient Records regulations: The Federal rules restrict any use of the information to criminally investigate or prosecute any alcohol or drug abuse patient.[facility] HospitalIn the event this information is protected by the Federal Confidentiality of Alcohol and Drug Abuse Patient Records regulations: The Federal rules restrict any use of the information to criminally investigate or prosecute any alcohol or drug abuse patient.[facility] HospitalIn the event this information is protected by the Federal Confidentiality of Alcohol and Drug Abuse Patient Records regulations: The Federal rules restrict any use of the information to criminally investigate or prosecute any alcohol or drug abuse patient.[facility] HospitalIn the event this information is protected by the Federal Confidentiality of Alcohol and Drug Abuse Patient Records regulations: The Federal rules restrict any use of the information to criminally investigate or prosecute any alcohol or drug abuse patient.[facility] HospitalIn the event this information is protected by the Federal Confidentiality of Alcohol and Drug Abuse Patient Records regulations: The Federal rules restrict any use of the information to criminally investigate or prosecute any alcohol or drug abuse patient.[facility] HospitalIn the event this information is protected by the Federal Confidentiality of Alcohol and Drug Abuse Patient Records regulations: The Federal rules restrict any use of the information to criminally investigate or prosecute any alcohol or drug abuse patient.[facility] HospitalIn the event this information is protected by the Federal Confidentiality of Alcohol and Drug Abuse Patient Records regulations: The Federal rules restrict any use of the information to criminally investigate or prosecute any alcohol or drug abuse patient.[facility] HospitalIn the event this information is protected by the Federal Confidentiality of Alcohol and Drug Abuse Patient Records regulations: The Federal rules restrict any use of the information to criminally investigate or prosecute any alcohol or drug abuse patient.[facility] HospitalIn the event this information is protected by the Federal Confidentiality of Alcohol and Drug Abuse Patient Records regulations: The Federal rules restrict any use of the information to criminally investigate or prosecute any alcohol or drug abuse patient.[facility] HospitalIn the event this information is protected by the Federal Confidentiality of Alcohol and Drug Abuse Patient Records regulations: The Federal rules restrict any use of the information to criminally investigate or prosecute any alcohol or drug abuse patient.[facility] HospitalIn the event this information is protected by the Federal Confidentiality of Alcohol and Drug Abuse Patient Records regulations: The Federal rules restrict any use of the information to criminally investigate or prosecute any alcohol or drug abuse patient.[facility] HospitalIn the event this information is protected by the Federal Confidentiality of Alcohol and Drug Abuse Patient Records regulations: The Federal rules restrict any use of the information to criminally investigate or prosecute any alcohol or drug abuse patient.[facility] HospitalIn the event this information is protected by the Federal Confidentiality of Alcohol and Drug Abuse Patient Records regulations: The Federal rules restrict any use of the information to criminally investigate or prosecute any alcohol or drug abuse patient.[facility] HospitalIn the event this information is protected by the Federal Confidentiality of Alcohol and Drug Abuse Patient Records regulations: The Federal rules restrict any use of the information to criminally investigate or prosecute any alcohol or drug abuse patient.[facility] HospitalIn the event this information is protected by the Federal Confidentiality of Alcohol and Drug Abuse Patient Records regulations: The Federal rules restrict any use of the information to criminally investigate or prosecute any alcohol or drug abuse patient.[facility] HospitalIn the event this information is protected by the Federal Confidentiality of Alcohol and Drug Abuse Patient Records regulations: The Federal rules restrict any use of the information to criminally investigate or prosecute any alcohol or drug abuse patient.[facility] HospitalIn the event this information is protected by the Federal Confidentiality of Alcohol and Drug Abuse Patient Records regulations: The Federal rules restrict any use of the information to criminally investigate or prosecute any alcohol or drug abuse patient.[facility] HospitalIn the event this information is protected by the Federal Confidentiality of Alcohol and Drug Abuse Patient Records regulations: The Federal rules restrict any use of the information to criminally investigate or prosecute any alcohol or drug abuse patient.[facility] HospitalIn the event this information is protected by the Federal Confidentiality of Alcohol and Drug Abuse Patient Records regulations: The Federal rules restrict any use of the information to criminally investigate or prosecute any alcohol or drug abuse patient.[facility] HospitalIn the event this information is protected by the Federal Confidentiality of Alcohol and Drug Abuse Patient Records regulations: The Federal rules restrict any use of the information to criminally investigate or prosecute any alcohol or drug abuse patient.[facility] HospitalIn the event this information is protected by the Federal Confidentiality of Alcohol and Drug Abuse Patient Records regulations: The Federal rules restrict any use of the information to criminally investigate or prosecute any alcohol or drug abuse patient.[facility] HospitalIn the event this information is protected by the Federal Confidentiality of Alcohol and Drug Abuse Patient Records regulations: The Federal rules restrict any use of the information to criminally investigate or prosecute any alcohol or drug abuse patient.[facility] HospitalIn the event this information is protected by the Federal Confidentiality of Alcohol and Drug Abuse Patient Records regulations: The Federal rules restrict any use of the information to criminally investigate or prosecute any alcohol or drug abuse patient.[facility] HospitalIn the event this information is protected by the Federal Confidentiality of Alcohol and Drug Abuse Patient Records regulations: The Federal rules restrict any use of the information to criminally investigate or prosecute any alcohol or drug abuse patient.[facility] HospitalIn the event this information is protected by the Federal Confidentiality of Alcohol and Drug Abuse Patient Records regulations: The Federal rules restrict any use of the information to criminally investigate or prosecute any alcohol or drug abuse patient.[facility] HospitalIn the event this information is protected by the Federal Confidentiality of Alcohol and Drug Abuse Patient Records regulations: The Federal rules restrict any use of the information to criminally investigate or prosecute any alcohol or drug abuse patient.[facility] HospitalIn the event this information is protected by the Federal Confidentiality of Alcohol and Drug Abuse Patient Records regulations: The Federal rules restrict any use of the information to criminally investigate or prosecute any alcohol or drug abuse patient.[facility] HospitalIn the event this information is protected by the Federal Confidentiality of Alcohol and Drug Abuse Patient Records regulations: The Federal rules restrict any use of the information to criminally investigate or prosecute any alcohol or drug abuse patient.[facility] HospitalIn the event this information is protected by the Federal Confidentiality of Alcohol and Drug Abuse Patient Records regulations: The Federal rules restrict any use of the information to criminally investigate or prosecute any alcohol or drug abuse patient.[facility] HospitalIn the event this information is protected by the Federal Confidentiality of Alcohol and Drug Abuse Patient Records regulations: The Federal rules restrict any use of the information to criminally investigate or prosecute any alcohol or drug abuse patient.[facility] HospitalIn the event this information is protected by the Federal Confidentiality of Alcohol and Drug Abuse Patient Records regulations: The Federal rules restrict any use of the information to criminally investigate or prosecute any alcohol or drug abuse patient.[facility] HospitalIn the event this information is protected by the Federal Confidentiality of Alcohol and Drug Abuse Patient Records regulations: The Federal rules restrict any use of the information to criminally investigate or prosecute any alcohol or drug abuse patient.[facility] HospitalIn the event this information is protected by the Federal Confidentiality of Alcohol and Drug Abuse Patient Records regulations: The Federal rules restrict any use of the information to criminally investigate or prosecute any alcohol or drug abuse patient.[facility] HospitalIn the event this information is protected by the Federal Confidentiality of Alcohol and Drug Abuse Patient Records regulations: The Federal rules restrict any use of the information to criminally investigate or prosecute any alcohol or drug abuse patient.[facility] HospitalIn the event this information is protected by the Federal Confidentiality of Alcohol and Drug Abuse Patient Records regulations: The Federal rules restrict any use of the information to criminally investigate or prosecute any alcohol or drug abuse patient.[facility] HospitalIn the event this information is protected by the Federal Confidentiality of Alcohol and Drug Abuse Patient Records regulations: The Federal rules restrict any use of the information to criminally investigate or prosecute any alcohol or drug abuse patient.[facility] HospitalIn the event this information is protected by the Federal Confidentiality of Alcohol and Drug Abuse Patient Records regulations: The Federal rules restrict any use of the information to criminally investigate or prosecute any alcohol or drug abuse patient.[facility] HospitalIn the event this information is protected by the Federal Confidentiality of Alcohol and Drug Abuse Patient Records regulations: The Federal rules restrict any use of the information to criminally investigate or prosecute any alcohol or drug abuse patient.[facility] HospitalIn the event this information is protected by the Federal Confidentiality of Alcohol and Drug Abuse Patient Records regulations: The Federal rules restrict any use of the information to criminally investigate or prosecute any alcohol or drug abuse patient.[facility] HospitalIn the event this information is protected by the Federal Confidentiality of Alcohol and Drug Abuse Patient Records regulations: The Federal rules restrict any use of the information to criminally investigate or prosecute any alcohol or drug abuse patient.[facility] HospitalIn the event this information is protected by the Federal Confidentiality of Alcohol and Drug Abuse Patient Records regulations: The Federal rules restrict any use of the information to criminally investigate or prosecute any alcohol or drug abuse patient.[facility] HospitalIn the event this information is protected by the Federal Confidentiality of Alcohol and Drug Abuse Patient Records regulations: The Federal rules restrict any use of the information to criminally investigate or prosecute any alcohol or drug abuse patient.[facility] HospitalIn the event this information is protected by the Federal Confidentiality of Alcohol and Drug Abuse Patient Records regulations: The Federal rules restrict any use of the information to criminally investigate or prosecute any alcohol or drug abuse patient.[facility] HospitalIn the event this information is protected by the Federal Confidentiality of Alcohol and Drug Abuse Patient Records regulations: The Federal rules restrict any use of the information to criminally investigate or prosecute any alcohol or drug abuse patient.[facility] HospitalIn the event this information is protected by the Federal Confidentiality of Alcohol and Drug Abuse Patient Records regulations: The Federal rules restrict any use of the information to criminally investigate or prosecute any alcohol or drug abuse patient.[facility] HospitalIn the event this information is protected by the Federal Confidentiality of Alcohol and Drug Abuse Patient Records regulations: The Federal rules restrict any use of the information to criminally investigate or prosecute any alcohol or drug abuse patient.[facility] HospitalIn the event this information is protected by the Federal Confidentiality of Alcohol and Drug Abuse Patient Records regulations: The Federal rules restrict any use of the information to criminally investigate or prosecute any alcohol or drug abuse patient.[facility] HospitalIn the event this information is protected by the Federal Confidentiality of Alcohol and Drug Abuse Patient Records regulations: The Federal rules restrict any use of the information to criminally investigate or prosecute any alcohol or drug abuse patient.[facility] HospitalIn the event this information is protected by the Federal Confidentiality of Alcohol and Drug Abuse Patient Records regulations: The Federal rules restrict any use of the information to criminally investigate or prosecute any alcohol or drug abuse patient.[facility] HospitalIn the event this information is protected by the Federal Confidentiality of Alcohol and Drug Abuse Patient Records regulations: The Federal rules restrict any use of the information to criminally investigate or prosecute any alcohol or drug abuse patient.[facility] HospitalIn the event this information is protected by the Federal Confidentiality of Alcohol and Drug Abuse Patient Records regulations: The Federal rules restrict any use of the information to criminally investigate or prosecute any alcohol or drug abuse patient.[facility] HospitalIn the event this information is protected by the Federal Confidentiality of Alcohol and Drug Abuse Patient Records regulations: The Federal rules restrict any use of the information to criminally investigate or prosecute any alcohol or drug abuse patient.[facility] HospitalIn the event this information is protected by the Federal Confidentiality of Alcohol and Drug Abuse Patient Records regulations: The Federal rules restrict any use of the information to criminally investigate or prosecute any alcohol or drug abuse patient.[facility] HospitalIn the event this information is protected by the Federal Confidentiality of Alcohol and Drug Abuse Patient Records regulations: The Federal rules restrict any use of the information to criminally investigate or prosecute any alcohol or drug abuse patient.[facility] HospitalIn the event this information is protected by the Federal Confidentiality of Alcohol and Drug Abuse Patient Records regulations: The Federal rules restrict any use of the information to criminally investigate or prosecute any alcohol or drug abuse patient.[facility] HospitalIn the event this information is protected by the Federal Confidentiality of Alcohol and Drug Abuse Patient Records regulations: The Federal rules restrict any use of the information to criminally investigate or prosecute any alcohol or drug abuse patient.[facility] HospitalIn the event this information is protected by the Federal Confidentiality of Alcohol and Drug Abuse Patient Records regulations: The Federal rules restrict any use of the information to criminally investigate or prosecute any alcohol or drug abuse patient.[facility] HospitalIn the event this information is protected by the Federal Confidentiality of Alcohol and Drug Abuse Patient Records regulations: The Federal rules restrict any use of the information to criminally investigate or prosecute any alcohol or drug abuse patient.[facility] HospitalIn the event this information is protected by the Federal Confidentiality of Alcohol and Drug Abuse Patient Records regulations: The Federal rules restrict any use of the information to criminally investigate or prosecute any alcohol or drug abuse patient.[facility] Reason for Visit (unrecogniz ed section and content) Reason Comments F/U 3 Month Specialty Diagnoses / Procedures Referred By Daniac t Referred To Contact [facility] Diagnoses Cerebrovascular accident (CVA), unspecified mechanism (HCC) Right sided weakness Procedures PT REHAB FOLLOW UP ORDER THERAPEUTIC EXERCISES RE, EA 15 MIN. Darrian Nolasco, THERESE [facility] [place] [address] [place] [address] Referral ID Status Reason Start Date Expiration Date Visits Requested Visits Authorized [id number] Authorized PCP Requested Referral Auto-Generate d Referral Patient Cleared - Qualified [id number] 06/07/2023 09/05/2023 99 99 Reason Comments PT Progress Note Reason Comments Physical Therapy Reason Comments Follow Up Reason Comments New Patient Evaluation Specialty Diagnoses / Procedures Referred By Contac t Referred To Contact [facility] Diagnoses Cerebrovascular accident (CVA), unspecified mechanism (HCC) Right sided weakness Procedures PT REHAB FOLLOW UP ORDER THERAPEUTIC EXERCISES RE, EA 15 MIN. Darrian Nolasco, PT [facility] [place] [address] [place] [address] Reason Comments PT Progress Note Referral ID Status Reason Start Date Expiration Date Visits Requested Visits Authorized [id number] Authorized PCP Requested Referral Auto-Generate d Referral Patient Cleared - Qualified [id number] 06/07/2023 09/05/2023 99 99 Specialty Diagnoses / Procedures Referred By Contac t Referred To Contact PHYSICAL THERAPY Diagnoses Cerebrovascular accident (CVA), unspecified mechanism (HCC) Right sided weakness Procedures CONSULT TO PHYSICAL THERAPY PHYSICAL THERAPY EVALUATION HIGH COMPLEX 45 MINS Ceci Vera MD [address] [place] [address] Paola James, PT [address] [place] [address] Referral ID Status Reason Start Date Expiration Date V isits Requested Visits Authorized [id number] Closed Auto-Generated Referral Patient Cleared - Qualified [id number] 03/13/2023 06/11/2023 50 1 Reason Comments Establish Care Follow Up 2 month follow up Specialty Diagnoses / Procedures Referred By Contac t Referred To Contact [facility] Diagnoses Encounter to establish care with new doctor Procedures CONSULT/TEST/T[facility]AT [facility] [address] [place] [address] Referral ID Status Reason Start Date Expiration Date Visits Requested Visits Authorized [id number] Authorized Financial Clearance Required - Self Pay Patient Cleared - Qualified [id number] 03/13/2023 06/11/2023 99 99 Reason Comments Hospital F/U Reason Comments Home Care Reason Comments Request Outside Medical Records Request Imaging from [facility]. Specialty Diagnoses / Procedures Referred By Ti bahena Referred To Contact [facility] Diagnoses Encounter to establish care with new doctor Procedures CONSULT/TEST/TREAT Self [facility] [address] [place] [address] Reason Comments Results Reason Comments Request Outside Medical Records Request Imaging and Records from [facility]. Reason Onset Date Comments Refill Request 06/16/2023 Reason Comments PT Discharge Specialty Diagnoses / Procedures Referred By Ti bahena Referred To Contact LAB [facility] Diagnoses LAB Procedures LAB DRAW Ceci Vera MD [address] [place] [address] Lab [facility] [address] [place] [address] Referral ID Status Reason Start Date Expiration Date Visits Requested Visits Authorized [id number] Authorized Financial Clearance Required - Self Pay Patient Cleared - Qualified [id number] 11/28/2023 99 99 Referral ID Status Reason Start Date Expiration Date V isits Requested Visits Authorized [id number] Closed Financial Clearance Required - Self Pay Patient Cleared - Qualified [id number] 03/13/2023 06/11/2023 99 99 Reason Onset Date Comments Refill Request 02/09/2024 Reason Comments Follow Up 6 month Reason Onset Date Comments Refill Request 03/29/2024 Reason Comments Results Reason Comments Follow Up 3 month Reason Onset Date Comments Refill Request 08/10/2024 Reason Comments Radiology NM Reason Onset Date Comments Appointment 08/19/2024 Reason Comments Hospital F/U [facility] ER 08/16- Transfe rred to [facility] 08/16-08/19 Reason Comments Medication Problem Reason Onset Date Comments 08/16/2024 Reason Comments Orders Reason Onset Date Comments Refill Request 09/16/2024 Reason Onset Date Comments Refill Request 09/17/2024 Reason Onset Date Comments Refill Request 09/29/2024 Reason Onset Date Comments Refill Request 10/02/2024 Reason Onset Date Comments Refill Request 10/07/2024 Reason Comments left forms placed in mailbox Reason Comments Refill Request Reason Onset Date Comments Refill Request 11/10/2024 Reason Onset Date Comments Refill Request 12/02/2024 Reason Onset Date Comments Refill Request 12/07/2024 Reason Onset Date Comments Refill Request 12/11/2024 Reason Comments F/U 6 months Reason Comments [address] Specialty Diagnoses / Procedures Referred By Contac t Referred To Contact CT IMAGING Diagnoses Abnormal CT scan of lung Procedures CT CHEST WO IVCON DIAGNOSTIC COMPUTED TOMOGRAPHY THORAX W/O CNTRST 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, 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, 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 [address] [place] [address] Phone: tel: fax: [place] [phone] Referral ID Status Reason Start Date Expiration Date V isits Requested Visits Authorized [id number] Closed Auto-Generate d Referral 12/25/2024 11/19/2025 1 1 Reason Comments Radiology US Specialty Diagnoses / Procedures Referred By Contac t Referred To Contact US IMAGING Diagnoses Thyroid nodule Procedures US THYROID/PARATHYROID US SOFT TISSUE HEAD & NECK REAL TIME IMGE DOCM Podlogosiel, 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, 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 [address] [place] [address] Phone: tel: fax: [place] [phone] Referral ID Status Reason Start Date Expiration Date V isits Requested Visits Authorized [id number] Closed Auto-Generate d Referral 01/08/2025 02/07/2026 1 1 Reason Onset Date Comments Refill Request 02/14/2025 Reason Onset Date Comments Refill Request 03/21/2025 Reason Onset Date Comments Refill Request 05/09/2025 Reason Onset Date Comments Refill Request 05/13/2025 Reason Onset Date Comments Refill Request 05/10/2025 Reason Onset Date Comments Refill Request 05/14/2025 Reason Comments Recheck Arrhythmia Atypical atrial flut ter Heart Problem Vasospasm INFORMATION SOURCE (unrecogn ized section and content) DATE CREATED AUTHOR 11/09/2023 [facility] DATE CREATED AUTHOR AUTHOR'S ORGANIZ ATION 08/18/2024 [facility] DATE CREATED AUTHOR AUTHOR'S ORGANIZ ATION 09/11/2024 [facility] DATE CREATED AUTHOR AUTHOR'S ORGANIZ ATION 12/14/2024 [facility] DATE CREATED AUTHOR AUTHOR'S ORGANIZ ATION 03/30/2025 [facility] FOR RECORDS PERTAINING TO PATIENTS WHO ARE OR HAVE BEEN ENROLLED IN A CHEMICAL DEPENDENCY/SUBSTANCEABUSE PROGRAM, SOME INFORMATION MAY BE OMITTED. This clinical summary was aggregated from multiple sources. Caution should be exercised in using it in the provision of clinical care. This summary normalizes information from multiple sources, and as a consequence, information in this document may materially change the coding, format and clinical context of patient data. In addition, data may be omitted in some cases. CLINICAL DECISIONS SHOULD BE BASED ON THE PRIMARY CLINICAL RECORDS. [facility]. provides no warranty or guarantee of the accuracy or completeness of information in this document.
[2025-06-14 12:00] VITALS: BP 149/69; PULSE 57; RESP 18; TEMP 37; O2SAT 97
== END 2025-06-14 12:03 | disposition home or self-care (01) ==
PROVIDERS: Emergency Provider Emergency Medicine; PCP Family Medicine; Visit Provider Emergency Medicine
DX: S61.212A Laceration without foreign body of right middle finger without damage to nail, initial encounter (principal); I48.91 Unspecified atrial fibrillation; S61.214A Laceration without foreign body of right ring finger without damage to nail, initial encounter; I10 Essential (primary) hypertension; E78.5 Hyperlipidemia, unspecified; R20.2 Paresthesia of skin; W26.0XXA Contact with knife, initial encounter; Z79.01 Long term (current) use of anticoagulants; Z86.73 Personal history of transient ischemic attack (TIA), and cerebral infarction without residual deficits; Z23 Encounter for immunization
CPT/HCPCS: 90471; 90715; 99282

== ENCOUNTER 2025-08-20 21:47 | Emergency (ER) | payer MEDICARE, SELFPAY ==
[2025-08-20 21:48] VITALS: BP 169/84; PULSE 107; RESP 18; TEMP 36.7; O2SAT 99
[2025-08-20 21:51] VITALS: BMI 30.4
[2025-08-20 22:04] VITALS: O2SAT 97
--- NOTE | 2025-08-20 22:04 | EKG12_ITS ---
Test Reason : PALPS Blood Pressure : */* mmHG Vent. Rate : 107 BPM Atrial Rate : 107 BPM P-R Int : 142 ms QRS Dur : 78 ms QT Int : 330 ms P-R-T Axes : 41 -15 37 degrees QTcB Int : 440 ms Sinus tachycardia Inferior infarct , age undetermined Abnormal ECG Confirmed by Ishmael Moralez ([id number]), purchase request editor ZAIDA DOTSON ([id number]) on 08/22/2025 7:20:00 AM Referred By: Confirmed By: Ishmael Moralez
--- NOTE | 2025-08-20 22:12 | EDS_ITS ---
HPI History of Present Illness Chief Complaint: Palpitations Informant: patient Onset/Context/Timing Onset: Today and Hours Activity at onset: sudden Quality: Positive for Aching Current Severity: Mild Maximum Severity: Mild Worsened By: Nothing Relieved By: Nothing Narrative Narrative: 74-year-old female with questionable history of possibly prior A-fib but she said the diagnosis is still unsure. Prior stroke in 2022 and she is on the blood thinner Pradaxa. States tonight she was at home that were baking and she accelerated heart rate that started somewhere between 8:00 and 830. Lasted for about 2 hours. Currently resolved. She did not get dizzy. No LOC. And feels better currently. She has no history of coronary disease. Prior Similar Symptoms: Yes Recent Illness/Hospitalization: No CVD Risk Factors: Negative for Hypertension or Diabetes PE Risk Factors: Negative for Recent Travel/Surgery, Recent Immobilization, Prior DVT or PE, Cancer or OCP + Smoking + >/=35 TAD Risk Factors: Negative for Marfan's Syndrome [facility] Medical History History of melanoma Essential hypertension Temporomandibular joint disorder Angina pectoris, unspecified Anxiety Multiple food allergies History of major depression Hyperlipidemia Prediabetes Obesity (BMI 35.0-39.9 without comorbidity) Hypertension Home Medications ?Medication ?Instructions ?Recorded ?Last Taken ?Type aspirin 81 mg tablet,delayed 81 mg PO BREAKFAST [employer] 02/22/23 08/14/24 History release amlodipine 10 mg tablet 10 mg PO DAILY BP #30 tabs 0 03/06/23 08/14/24 Rx buspirone 5 mg tablet 5 mg PO BID #60 tabs 3 08/14/24 Rx famotidine 20 mg tablet (Pepcid) 20 mg PO BID #30 tabs 03/06/23 08/14/24 Rx lisinopril 5 mg tablet 5 mg PO DAILY #30 tabs 03/0608/14/24 Rx metoprolol succinate 50 mg 50 mg PO QHS #30 tabs 03/0608/14/24 Rx tablet,extended release 24 hr acetaminophen 325 mg tablet 650 mg PO Q6H PRN Pain 1-1 0 Or 08/16/24 Unknown History Fever>100.7 alendronate 70 mg tablet 70 mg PO MO 08/16/24 4 History diphenhydramine HCl 25 mg capsule 25 mg PO Q6H PRN Itc mar 08/16/24 08/14/24 History (Banophen) nitrofurantoin 1 cap PO BID 08/16/24 History monohydrate/macrocrystals 100 mg capsule rosuvastatin 20 mg tablet 20 mg PO QHS 08/16/24 History Allergy/AdvReac Type Severity Reaction Status Date / Time atorvastatin (From Lipitor) Allergy Hives Verified 08/20/25 22:03 citric acid Allergy Hives Verified 08/20/25 22:03 nitrofurantoin (From Allergy PT UNSURE Verified 08/20/25 22:03 Macrobid) OF REACTION Family History Brother Heart disease Brother Heart disease Mother Diabetes Cancer Father Cancer Sister Cancer Heart disease Surgical History History of appendectomy Hx of cardiac cath Social History adopted: No household members: none housing: house number of children: 1 current occupational status: employed 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 Constitutional Constitutional ED: Denies chills or fever(s) ENT ENT ED: Denies ear pain Cardiovascular Cardiovascular: Reports as per HPI, chest pain, palpitations and racing heartbeat Respiratory/Chest Respiratory/Chest: Denies cough or dyspnea Gastrointestinal Gastrointestinal: Denies abdominal pain Genitourinary Genitourinary ED: Denies dysuria or hematuria Musculoskeletal Musculoskeletal: Denies arthralgias Integumentary Denies abscess Neurologic Neurologic: Denies headache(s) Psychiatric Psychiatric: Denies anxiety or depression Endocrine Endocrinology: Denies cold intolerance Hematologic/Lymphatic Hematologic/Lymphatic: Denies lymphadenopathy Allergic/Immunologic Allergic/Immunologic ED: Denies mouth swelling, tongue swelling or urticaria EXAM Physical Exam Narrative Exam Narrative: Well-appearing 74-year-old female. Vital signs stable afebrile. Family in room. Current heart rates about 108. H EENT exam pupils round react light. Moist membranes. Neck nontender no JVD. Lungs clear to auscultation bilaterally. Pulse ox 9 9% on room air no hypoxia. Heart tachycardic 108 no murmur. Chest wall ribs nontender. Abdomen soft nontender. Moving all 4 extremities. Calves are nontender no cords. 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 Normal dorsi plantarflexion. Trace swelling but lower extremities. Neurologically she is awake alert. Answering questions following commands. Const Vital Signs: 08/20/25 21:48 08/20/25 22:01 08/20/25 22:04 Temperature 98.1 F Temperature Source Oral Pulse Rate 107 H Respiratory Rate 18 Respiratory Effort Normal Blood Pressure 169/84 H Blood Pressure Mean 112 Pulse Ox 99 97 Oxygen Delivery Method Room Air Room Air 08/20/25 23:20 08/21/25 00:00 Temperature Temperature Source Pulse Rate 103 H 89 Respiratory Rate 16 16 Respiratory Effort Blood Pressure 151/77 H 143/76 H Blood Pressure Mean 101 98 Pulse Ox 97 98 Oxygen Delivery Method Room Air Room Air Positive well nourished; Negative for cachectic, contractures or unkempt General Appearance ED: Negative for unkempt, cachectic, contractures or pallor Nutritional Appearance: Negative for cachectic HEENT Reports moist mucous membranes normocephalic and atraumatic Eyes PERRL Neck no lymphadenopathy, supple and no JVD Chest Wall inspection of chest normal and palpation of chest normal Resp normal respiratory effort and clear to auscultation bilaterally Cardio regular rhythm, S1 normal heart sound, S2 normal heart sound and no murmurs; Negative for regular rate Rate: tachycardic Peripheral Pulses: pulses 2+ throughout GI normal to inspection, nondistended, normoactive bowel sounds, soft to palpation, non-tender, non-distended and no masses Back/Spine no CVA tenderness and no thoracic nor lumbar tenderness Extremity Negative for normal to inspection Extremity Narrative: Trace bilaterally General Extremety ED: Yes edema General Extremity: edema Neuro oriented x3 and CN's II-XII intact bilaterally Sensorium / Orientation: awake, alert, oriented to person, oriented to place and oriented to time Motor Exam: strength 5/5 throughout Psych mental status grossly normal Appearance: Negative for unkempt Skin no rashes or lesions noted and no wounds General Skin Exam: Negative for jaundice or pallor MDM MDM MDM Narrative Medical decision making narrative: 74-year-old with accelerated heart rate currently in sinus tachycardia 108. Will undergo cardiac workup. He is being treated for A-fib is on the blood thinner Pradaxa. Also on a beta-jackie metoprolol. Repeat exam at around 1230 and again at 1:15 AM patient is doing well. Symptom-free. She has had no dysrhythmia here. 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 She is comfortable with the plan. She will continue her current medications. History & Record Review Discussion w/independent historian: Patient and Family Additional record(s) reviewed:: Prior inpatient record, Prior outpatient record, Prior ED visit and Prior labs Lab Data Attestation: I reviewed the patient's lab results. Lab results narrative: CBC unremarkable. White count of 10. H&H 12 and 34. Platelets 301. Electrolytes show a gap of 14. BUN and creatinine 21. Glucose 164. Troponin 10. 2-hour troponin 16. TSH 1.52. Chest x-ray unremarkable. Labs: Laboratory Results - last 24 hr 08/20/25 08/21/25 22:25 00:15 WBC 10.8 RBC 4.10 L Hgb 12.3 Hct 34.9 L MCV 85.1 MCH 30.0 MCHC 35.2 RDW Std Deviation 38.5 RDW Coeff of Stacy 12.3 Plt Count 301 MPV 10.6 Immature Gran % (Auto) 0.500 Neut % (Auto) 80.1 H Lymph % (Auto) 11.8 L [place] % (Auto) 7.5 Eos % (Auto) 0.0 Baso % (Auto) 0.1 Absolute Neuts (auto) 8.7 H Absolute Lymphs (auto) 1.28 Nucleated RBC % 0 Sodium 136 Potassium 4.0 Chloride 103 Carbon Dioxide 19.2 L Anion Gap 14 BUN 20 H Creatinine 1.05 Estim Creat Clear Calc 42.52 L Est GFR (MDRD) Non-Af 56 L BUN/Creatinine Ratio 19.2 Glucose 164 H Calcium 10.0 Troponin T High Sens 10 Troponin T Hi Sens 2 Hr 16 H TSH 1.520 Radiography Chest X-Ray - ED: 1 View, Read by ED Physician, Read by Radiologist, Normal, Heart, Lungs, Mediastinum, Bony Structures, No Acute Disease and Chronic Changes Diagnostic Testing: Clinical Impression(s) from Imaging Studies Chest X-Ray 08/20/25 22:16 IMPRESSION: No acute cardiopulmonary process. Reading Location: [facility] Chest x-ray, portable, single view interpreted myself shows no acute abnormality. Also read by the radiologist agrees. Normal cardiac silhouette. Normal lung [place]. Rhythm Strip Rhythm Strip: Sinus Tach Rate: 107 Ectopy: None EKG Initial EKG: Attestation: I personally reviewed and interpreted this EKG as follows: Interpretation: No Acute Injury Pattern and Sinus Tachycardia Comments: Sinus tachycardia rate of 107 no acute signs of CT or ischemia. Discharge Plan Triage Chief Complaint: Palpitations ED Provider: Silvio Tsang Dx/Rx/DC Orders Clinical Impression: Palpitations, History of atrial fibrillation Instructions: ED Heart Palpitations Prescriptions: No Action aspirin 81 mg tablet,delayed release (DR/EC) 81 mg PO BREAKFAST buspirone 5 mg Tablet 5 mg PO BID Qty: 60 0RF metoprolol succinate 50 mg Tablet Extended Release 24 Hr 50 mg PO QHS Qty: 30 0RF lisinopril 5 mg Tablet 5 mg PO DAILY Qty: 30 0RF famotidine [Pepcid] 20 mg tablet 20 mg PO BID Qty: 30 0RF amlodipine 10 mg tablet 10 mg PO DAILY Qty: 30 0RF rosuvastatin 20 mg tablet 20 mg PO QHS nitrofurantoin monohyd/m-cryst 100 mg capsule 1 cap PO BID Patient Comments: FIRST DOSE MONDAY (08/14/24) EVENING acetaminophen 325 mg Tablet 650 mg PO Q6H PRN (Reason: Pain 1-10 Or Fever>100.7) diphenhydramine HCl [Banophen] 25 mg Capsule 25 mg PO Q6H PRN (Reason: Itching) alendronate 70 mg tablet 70 mg PO MO Primary Care Provider: Shahid Vera Referrals: Shahid Vera MD [Primary Care Provider, Family Practice] - As Needed Activity Restrictions/Additional Instructions: All your test tonight including your EKG blood work, heart enzymes and chest x- ray are all unremarkable. You may have had an abnormal heart rhythm at home there is no signs of it here. 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 Print Language: Martiniquais Disposition Disposition: Home, Self Care
--- NOTE | 2025-08-20 22:16 | RAD_ITS ---
EXAM: XR Chest, 1 View CLINICAL INDICATION: CHEST PAIN TECHNIQUE: Frontal view of the chest. COMPARISON: XR Chest dated 08/16/2025 FINDINGS: LUNGS AND PLEURAL SPACES: Unremarkable. No consolidation. No pneumothorax. HEART: Unremarkable. No cardiomegaly. MEDIASTINUM: Unremarkable. Normal mediastinal contour. BONES/JOINTS: Unremarkable. No acute fracture. RAD/Chest 1 View (Portable) IMPRESSION: No acute cardiopulmonary process. Reading Location: [id number]
--- NOTE | 2025-08-20 22:30 | ED.RN ---
blood drawn by this nurse. iv started by ems.
[2025-08-20 22:36] LABS: Hematocrit 34.9 % (37-47); Hemoglobin 12.3 g/dL (12.0-15.0); Immature Granulocytes Count 0.050 X10^3/uL (0.0-0.0); Mean Corp Hgb Conc 35.2 g/dL (32-36); Mean Corpuscular Volume 85.1 fL (81-99); Mean Platelet Vol. 10.6 fl (6.2-12.0); NRBC Flagged by Analyzer 0 % (0-5); Platelet Count 301 K/mm3 (150-450); RBC Distribution Width CV 12.3 % (11.6-14.6); RBC Distribution Width SD 38.5 fl (35.1-43.9); Red Blood Count 4.10 M/mm3 (4.2-5.4); White Blood Count 10.8 K/mm3 (4.4-11.0)
[2025-08-20 23:03] LABS: Anion Gap 14 (5-15); BUN 20 mg/dL (4-19); BUN/Creat Ratio 19.2 RATIO (10-20); Calcium,Total 10.0 mg/dL (7.6-11.0); Carbon Dioxide 19.2 mmol/L (21.0-32.0); Chloride 103 mmol/L (98-108); Estimated Creatinine Clearance 42.52 ml/min (50-250); Glucose 164 mg/dL (70-99); Potassium 4.0 mmol/L (3.3-5.1); Troponin T High Sensitivity 10 ng/L (<=14)
[2025-08-20 23:20] VITALS: BP 151/77; PULSE 103; RESP 16; O2SAT 97
[2025-08-21] VITALS: BP 143/76; PULSE 89; RESP 16; O2SAT 98
[2025-08-21 01:04] LABS: Troponin T High Sens 2 HR 16 ng/L (<=14)
[2025-08-21 01:22] VITALS: BP 141/79; PULSE 94; RESP 18; TEMP 36.7; O2SAT 97
== END 2025-08-21 01:23 | disposition home or self-care (01) ==
PROVIDERS: Emergency Provider Emergency Medicine; PCP Family Medicine; Visit Provider Emergency Medicine
DX: R00.2 Palpitations (principal); I48.91 Unspecified atrial fibrillation; E78.5 Hyperlipidemia, unspecified; I10 Essential (primary) hypertension; Z79.01 Long term (current) use of anticoagulants
CPT/HCPCS: 71045; 80048; 84443; 84484; 85025; 93005; 99285; A4216